=== PATIENT | female | born 1980 | race Caucasian/White ===

== ENCOUNTER 2018-10-09 17:56 | Emergency (ER) | payer MEDICARE, OTHER ==
[~2018-10-09] VITALS: Ht 160 cm; Wt 156.5 kg
[~2018-10-09 17:56] MED LIST: AMITRIPTYLINE H25 MG PO; AMITRIPTYLINE H75 MG PO; ATIVAN0.5 MG PO; BACTROBAN22 GM TOP; BIAXIN500 MG PO; BIOTIN1 MG PO; CETIRIZINE HCL10 MG PO; CLINDAMYCIN HC300 MG PO; D3 + K2 DOTS 11 EACH PO; DIVALPROEX SOD500 MG PO; ESTRADIOL TRAN1 EAC1 TD; ESTRADIOL1 MG PO; FABRAZYME35 MG IV; GEODON80 MG NG; GLIPIZIDE XL10 MG PO; GUAIATUSSIN AC10 ML PO; KEFLEX500 MG PO; KURIC75 GM TP; L-METHYLFOLATE15 MG PO; LASIX20 MG; LATUDA120 MG PO; LISINOPRIL5 MG; LYRICA50 MG PO; MELOXICAM15 MG PO; METFORMIN HCL500 M1 PO; MONTELUKAST SOD10 MG PO; NORCO 10-325 T1 EACH PO; NORCO 5-325 TA1 EACH PO; PHENADOZ25 MG PR; POTASSIUM GLUC500 MG PO; PRAZOSIN HCL5 MG PO; PREDNISONE20 MG PO; PRILOSEC20 MG PO; PROPRANOLOL HCL40 MG PO; QUETIAPINE FUM300 MG PO; TRAMADOL HCL50 MG PO; TRAZODONE HCL100 MG PO; VICTOZA 2-0.6 MG/0.1 SUB-Q; WELLBUTRIN SR150 MG PO; XANAX1 MG PO; ZOFRAN ODT4 MG PO; ZOFRAN ODT4 MG SL; ZOFRAN ODT8 MG PO; ZOFRAN4 MG PO; ZOFRAN8 MG PO
[2018-10-09] MEDS ORDERED: DULOXETINE HCL30 MG PO (18:14)
[2018-10-09] MEDS ORDERED: LANTUS SOL100 UNIT/1 SUB-Q (18:14)
[2018-10-09] MEDS ORDERED: METRONIDAZOLE70 GM VAGINAL (18:18)
[2018-10-09] MEDS ORDERED: NORCO 5-325 TA1 EACH PO (20:14)
[2018-10-09] MEDS ORDERED: PROMETHAZINE HC25 M1 PO (20:14)
[2018-10-09] MEDS ORDERED: CLINDAMYCIN HC300 MG PO (20:14)
== END 2018-10-09 20:30 | disposition home or self-care (01) ==
LOC: ED 17:56
PROC: 0H9AXZZ Drainage of Inguinal Skin, External Approach (ICD-10-PCS; principal; 2018-10-09)
DX: L02.214 Cutaneous abscess of groin (principal); F31.9 Bipolar disorder, unspecified; I10 Essential (primary) hypertension; E11.9 Type 2 diabetes mellitus without complications; Z90.710 Acquired absence of both cervix and uterus; Z90.49 Acquired absence of other specified parts of digestive tract; Z88.0 Allergy status to penicillin; Z88.2 Allergy status to sulfonamides; Z88.8 Allergy status to other drugs, medicaments and biological substances; Z79.4 Long term (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 of insulin; Z79.899 Other long term (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
CPT/HCPCS: 10060; 87070; 87077; 87186; 87205; 99283-25

== ENCOUNTER 2018-10-11 14:53 | Emergency (ER) | payer MEDICARE, OTHER ==
[~2018-10-11] VITALS: Ht 160 cm; Wt 156.6 kg
[~2018-10-11 14:53] MED LIST changes: +DULOXETINE HCL30 MG PO; +LANTUS SOL100 UNIT/1 SUB-Q; +METRONIDAZOLE70 GM VAGINAL; +PROMETHAZINE HC25 M1 PO
--- OUTSIDE RECORDS SUMMARY | 2018-10-11 14:56 | XMS ---
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 ENRIQUE Security Vamp Maker Events No recent Security Events currently on file CRITERIA MET - [facility] - 2 Visits in 30 Days CARE PROVIDERS There are no care providers on record at this time. Amparo has no Care Guidelines for this patient. [place] VISIT COUNT (12 MO.) [address] [facility] TOTAL 3 NOTE: Visits indicate total known visits. ED/C VISIT TRACKING (12 MO.) 10/11/2018 14:53 [facility] [place] TYPE: Emergency COMPLAINT: - WOUND CHECK 10/09/2018 17:56 [facility] [place] TYPE: Emergency COMPLAINT: - POST OP PROBLEM 08/02/2018 11:43 [facility] [place] TYPE: Emergency COMPLAINT: - RIGHT ARM PAIN DIAGNOSES: - Pain in right arm - Pain in right arm INPATIENT VISIT TRACKING (12 MO.) No inpatient visits to display in this time frame [id number]
[2018-10-11] MEDS ORDERED: ULTRAM50 MG PO ×2 (15:59→16:01)
== END 2018-10-11 16:15 | disposition home or self-care (01) ==
LOC: ED 14:53
DX: Z48.817 Encounter for surgical aftercare following surgery on the skin and subcutaneous tissue (principal); F31.9 Bipolar disorder, unspecified; I10 Essential (primary) hypertension; E11.9 Type 2 diabetes mellitus without complications; Z90.710 Acquired absence of both cervix and uterus; Z90.49 Acquired absence of other specified parts of digestive tract; Z88.0 Allergy status to penicillin; Z88.2 Allergy status to sulfonamides; Z88.8 Allergy status to other drugs, medicaments and biological substances; Z79.899 Other long term (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; Z79.4 Long term (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 of insulin
CPT/HCPCS: 99282

== ENCOUNTER 2019-11-09 22:22 | Emergency (ER) | payer MEDICARE, OTHER ==
[~2019-11-09] VITALS: Ht 162.6 cm; Wt 153.5 kg
[~2019-11-09 22:22] MED LIST changes: +ULTRAM50 MG PO
--- OUTSIDE RECORDS SUMMARY | 2019-11-09 22:24 | XMS ---
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 ENRIQUE Security Photoengraving Helper Events No recent Security Events currently on file CRITERIA MET - [facility] - Has Care Guidelines - PDMP CARE PROVIDERS MERLE SHARMA Internal Medicine 10/12/2018-Current PHONE: [phone] Amparo has no Care Guidelines for this patient. Care History Medical/Surgical 10/12/2018 [facility] - Patient is currently established with [facility]. If patient is seen in the ED during business hours. Please contact [facility]Ws at [facility]. Care Recommendation: This patient has had 5 or more Emergency Department visits in the last 12 months.\T\nbsp; Patient requires education on the scope and purpose of the ED as an acute care provider not a Primary Care Provider and should not be utilized for chronic conditions.\T\nbsp; These are guidelines and the provider should exercise clinical judgment when providing care. E.D. VISIT COUNT (12 MO.) 1 [facility] TOTAL 1 NOTE: Visits indicate total known visits. ED/UCC VISIT TRACKING (12 MO.) 11/09/2019 22:[address] [facility] [place] TYPE: Emergency COMPLAINT: - MEDICATION ISSUE INPATIENT VISIT TRACKING (12 MO.) No inpatient visits to display in this time frame [email or web address] ([id number]
[2019-11-09] MEDS ORDERED: PROTONIX20 MG PO (22:36)
[2019-11-09] MEDS ORDERED: LEVAQUIN500 MG PO (23:31)
[2019-11-09] MEDS ORDERED: FLAGYL500 MG PO (23:31)
== END 2019-11-09 23:41 | disposition home or self-care (01) ==
LOC: ED 22:22
DX: R11.10 Vomiting, unspecified (principal); T36.8X5A Adverse effect of other systemic antibiotics, initial encounter; K02.9 Dental caries, unspecified; F31.9 Bipolar disorder, unspecified; I10 Essential (primary) hypertension; E11.9 Type 2 diabetes mellitus without complications
CPT/HCPCS: 99283

== ENCOUNTER 2020-02-07 09:17 | Emergency (ER) | payer MEDICARE, OTHER ==
[~2020-02-07] VITALS: Ht 162.6 cm; Wt 153.5 kg
--- OUTSIDE RECORDS SUMMARY | ~2020-02-07 | XMS | Encounter Summary ---
Demographics + + + | Address | [address] | | | [place] [address] | + + + | Home Phone | | + + + | Preferred Language | Unknown | + + + | Marital Status | Single | + + + | Yarsanism Affiliation | Unknown | + + + | Race | White | + + + | Ethnic Group | Not or | + + + Author + + + | Author | [facility] | + + + | Organization | [facility] | + + + | Address | Unknown | + + + | Phone | Unavailable | + + + Support + + +---------+ + | Name | Relationship | Address | Phone | + + +---------+ + | John Miguel | ECON | Unknown | | + + +---------+ + Care Team Providers + +------+ + | Care Soaping Machine Back Tender Name | Role | Phone | + +------+ + | Gavinolizandro Estiven | PCP | | + +------+ + Encounter Details +--------+ + + + + | Date | Type | Department | Care Team | Description | +--------+ + + + + | 04/09/ | MyChart | [facility] | Deidre Nguyen MD | [facility] | | 2018 | Encounter | Floor [address] | [address] | | | | | St Mailcode: [facility] | [place] [address], | | | | | [facility] [place], [place] | [place] [address] | | | | | [address] | [phone] | | | | | [phone] | | | +--------+ + + + + Social History + +-------+ +--------+------+ | Tobacco Use | Types | Packs/Day | Years | Date | | | | | Used | | + +-------+ +--------+------+ | Never Smoker | | | | | + +-------+ +--------+------+ + +---+---+---+ | Smokeless Tobacco: | | | | | Never Used | | | | + +---+---+---+ + + +---------+ + | Alcohol Use | Drinks/Week | oz/Week | Comments | + + +---------+ + | No | | | | + + +---------+ + + + + | Sex Assigned at | Date Recorded | | | | + + + | Not on file | | + + + + + + + | Job Start Date | Occupation | Industry | + + + + | Not on file | Not on file | Not on file | + + + + + + + + | Travel History | Travel Start | Travel End | + + + + + + | No recent travel history available. | + + documented as of this encounter Plan of Treatment Not on filedocumented as of this encounter Visit Diagnoses Not on filedocumented in this encounter"
--- OUTSIDE RECORDS SUMMARY | ~2020-02-07 | XMS | Encounter Summary ---
Demographics + + + | Address | [address] | | | [place] [address] | + + + | Home Phone | | + + + | Preferred Language | Unknown | + + + | Marital Status | Single | + + + | Worship Affiliation | Unknown | + + + | Race | White | + + + | Ethnic Group | Not or | + + + Author + + + | Author | [facility] | + + + | Organization | [facility] | + + + | Address | Unknown | + + + | Phone | Unavailable | + + + Support + + +---------+ + | Name | Relationship | Address | Phone | + + +---------+ + | John Miguel | ECON | Unknown | | + + +---------+ + Care Team Providers + +------+ + | Care Front Desk Person Name | Role | Phone | + +------+ + | Estiven Hallman | PCP | | + +------+ + Encounter Details +--------+------+ + + + | Date | Type | Department | Care Team | Description | +--------+------+ + + + | 02/03/ | Lab | Laboratory at [facility] | | Morbid obesity, | | 2017 | | [address] | | unspecified obesity | | | | [place], [place] | | type (HCC) | | | | [address] | | | | | | [phone] | | | +--------+------+ + + + Social History + +-------+ [...] Not on filedocumented as of this encounter Procedures + +--------+ + + + | Procedure Name | Priori | Date/Time | Associated Diagnosis | Comments | | | ty | | | | + +--------+ + + + | VITAMIN D, | Routin | 02/03/2017 | Morbid obesity, | Results for this | | 25-HYDROXY, SERUM | e | 12:18 PM | unspecified obesity | procedure are in the | | | | PDT | type ([facility]) | results section. | + +--------+ + + + | COMPLETE METABOLIC | Routin | 02/03/2017 | Morbid obesity, | Results for this | | SET | e | 12:18 PM | unspecified obesity | procedure are in the | | (NA,K,CL,CO2,BUN,CRE | | PDT | type (HCC) | results section. | | AT,GLUC,CA,AST,ALT,B | | | | | | BECCA TOTAL,ALK | | | | | | PHOS,ALB,PROT TOTAL) | | | | | + +--------+ + + + | FERRITIN | Routin | 02/03/2017 | Morbid obesity, | Results for this | | | e | 12:18 PM | unspecified obesity | procedure are in the | | | | PDT | type ([facility]) | results section. | + +--------+ + + + | PTH, SERUM | Routin | 02/03/2017 | Morbid obesity, | Results for this | | | e | 12:18 PM | unspecified obesity | procedure are in the | | | | PDT | type ([facility]) | results section. | + +--------+ + + + | TSH | Routin | 02/03/2017 | Morbid obesity, | Results for this | | | e | 12:18 PM | unspecified obesity | procedure are in the | | | | PDT | type ([facility]) | results section. | + +--------+ + + + | LIPID SET (TRIG, T | Routin | 02/03/2017 | Morbid obesity, | Results for this | | CHOL, HDL, CALC LDL) | e | 12:18 PM | unspecified obesity | procedure are in the | | | | PDT | type ([facility]) | results section. | + +--------+ + + + | HEMOGLOBIN A1C, | Routin | 02/03/2017 | Morbid obesity, | Results for this | | BLOOD | e | 12:18 PM | unspecified obesity | procedure are in the | | | | PDT | type (HCC) | results section. | + +--------+ + + + documented in this encounter Results HEMOGLOBIN A1C, BLOOD (02/03/2017 12:18 PM PDT) + + + + + + | Component | Value | Ref Range | Performed | Pathologist | | | | | At | Signature | + + + + + + | HEMOGLOBIN | 6.7 (H)Comment: Hgb A1C | <5.7 % | [facility] | | | A1C | Interpretive | | LABORATORY | | | | Information: | | SERVICES, | | | | <5.7% - Normal | | SPECIAL IMM | | | | 5.7-6.4% - Consistent | | + COAG | | | | with pre-diabetes | | | | | | >6.4% - Consistent | | | | | | with diabetes | | | | | | | | | | + + + + + + + + | Specimen | + + | Blood - Blood | | (substance) | + + + + + | Narrative | Performed At | + + + | Alternate forms of testing such as glycated serum protein or | [facility] | | glycated albumin should be considered for monitoring intermediate project manager | LABORATORY | | glycemic control in patients with: Increased red cell turnover, | SERVICES, | | certain hemoglobinopathies (e.g., HbS, HbE, HbC and thalassemia | SPECIAL IMM + | | syndromes), anemias, blood loss, chronic liver disease and | [facility] | | hemochromatosis (artefactually low HbA1c); iron deficiency anemia | | | (artefactually high HbA1c due to enhanced glycation of hemoglobin). | | | | | + + + + + + + + | Performing | Address | City/State/Zipcode | Phone Number | | Organization | | | | + + + + + | [facility] | [address] | [place] [address] | | | SERVICES, SPECIAL | [address] | | | | IMM + [place] | | | | + + + + + TSH (02/03/2017 12:18 PM PDT) + +-------+ + + + | Component | Value | Ref Range | Performed | Pathologist | | | | | At | Signature | + +-------+ + + + | TSH | 1.93 | 0.39 - 4.17 | [facility] | | | | | mIU/L | LABORATORY | | | | | | SERVICES, | | | | | | CORE | | + +-------+ + + + + + | Specimen | + + | Blood - Blood | | (substance) | + + + + + | Narrative | Performed At | + + + | TSH reference ranges are influenced by a variety of environmental | [facility] | | influences, age, gender and ethnicity. The supplied reference limits | LABORATORY | | are based on published values utilizing a similar TSH assay, and | SERVICES, CORE | | should be interpreted with caution. | | + + + + + + + + | Performing | Address | City/State/Zipcode | Phone Number | | Organization | | | | + + + + + | [employer] | [address] | [place] [address] | | | SERVICES, CORE | [address] | | | + + + + + LIPID SET (TRIG, T CHOL, HDL, CALC LDL) (02/03/2017 12:18 PM PDT) + +---------+ + + + | Component | Value | Ref Range | Performed | Pathologist | | | | | At | Signature | + +---------+ + + + | CHOLESTEROL | 219 (H) | <200 mg/dL | [facility] | | | (LAB) | | | LABORATORY | | | | | | SERVICES, | | | | | | CORE | | + +---------+ + + + | TRIGLYCERID | 190 (H) | <150 mg/dL | [facility] | | | ES | | | LABORATORY | | | | | | SERVICES, | | | | | | CORE | | + +---------+ + + + | HDL | 45 | >40 mg/dL | [facility] | | | CHOLESTEROL | | | LABORATORY | | | | | | SERVICES, | | | | | | CORE | | + +---------+ + + + | HDL CMNT | No Hemo | | [facility] | | | | | | LABORATORY | | | | | | SERVICES, | | | | | | CORE | | + +---------+ + + + | LDL | 136 (H) | <100 mg/dL | [facility] | | | CHOLESTEROL | | | LABORATORY | | | , | | | SERVICES, | | | CALCULATED | | | CORE | | + +---------+ + + + | VLDL | 38 (H) | <31 mg/dL | [facility] | | | CHOLESTEROL | | | LABORATORY | | | , | | | SERVICES, | | | CALCULATED | | | CORE | | + +---------+ + + + | NON-HDL | 174 (H) | <130 mg/dL | [facility] | | | CHOLESTEROL | | | LABORATORY | | | | | | SERVICES, | | | | | | CORE | | + +---------+ + + + + + | Specimen | + + | Blood - Blood | | (substance) | + + + + + | Narrative | Performed At | + + + | Cholesterol Reference Range: Desirable: <200 | [facility] | | mg/dL Borderline High: 200 - 239 mg/dL | LABORATORY | | High: >=240 mg/dL LDL Cholesterol | SERVICES, CORE | | Reference Range: Optimal: <100 mg/dL | | | Near Optimal: 100-129 mg/dL Borderline High: 130-159 | | | mg/dL High: 160-189 mg/dL | | | Very High: >=190 mg/dL non-HDL Cholesterol Reference Range: | | | Optimal: <130 mg/dL Near Optimal: | | | 130-159 mg/dL Borderline High: 160-189 mg/dL | | | High: 190-209 mg/dL Very High: | | | >=210 mg/dL Triglyceride Reference Range: | | | Normal: <150 mg/dL Borderline High: 150-199 mg/dL | | | High: 200-499 mg/dL Very High: >=500 mg/dL | | | HDL Reference Range: High Risk: <40 mg/dL | | | Desirable: >=60 mg/dL | | + + + + + + + + | Performing | Address | City/State/Zipcode | Phone Number | | Organization | | | | + + + + + | [facility] | [address] | [place] [address] | | | SERVICES, CORE | [address] | | | + + + + + PTH, SERUM (02/03/2017 12:18 PM PDT) + +---------+ + + + | Component | Value | Ref Range | Performed | Pathologist | | | | | At | Signature | + +---------+ + + + | PTH, SERUM | 164 (H) | 12 - 77 pg/mL | [facility] | | | | | | LABORATORY | | | | | | SERVICES, | | | | | | CORE | | + +---------+ + + + + + | Specimen | + + | Blood - Blood | | (substance) | + + + + + + + | Performing | Address | City/State/Zipcode | Phone Number | | Organization | | | | + + + + + | [employer] | [address] | [place] [address] | | | SERVICES, CORE | [address] | | | + + + + + FERRITIN (02/03/2017 12:18 PM PDT) + + + + + + | Component | Value | Ref Range | Performed | Pathologist | | | | | At | Signature | + + + + + + | FERRITIN | 25 (L)Comment: Male and | 50 - 200 ng/mL | [facility] | | | | Female >18 years: | | LABORATORY | | | | <20 ng/mL: | | SERVICES, | | | | Consistant with iron | | CORE | | | | deficiency 21-50 | | | | | | ng/mL: Possible | | | | | | iron deficiency 51-99 | | | | | | ng/mL: Iron | | | | | | deficiency unlikely | | | | | | unless inflammation | | | | | | present or | | | | | | patient | | | | | | >65 years of age | | | | | | 100-200 ng/mL: | | | | | | Normal, not consistent | | | | | | with iron deficiency | | | | | | >200 ng/mL: If | | | | | | transferrin saturation | | | | | | >45%, consider | | | | | | hemochromatosis | | | | + + + + + + + + | Specimen | + + | Blood - Blood | | (substance) | + + + + + + + | Performing | Address | City/State/Zipcode | Phone Number | | Organization | | | | + + + + + | [facility] | [address] | [place] [address] | | | SERVICES, CORE | [address] | | | + + + + + VITAMIN D, 25-HYDROXY, SERUM (02/03/2017 12:18 PM PDT) + + + + + + | Component | Value | Ref Range | Performed | Pathologist | | | | | At | Signature | + + + + + + | VITAMIN D | 20.6 (L) | 30 - 80 ng/mL | [facility] | | | 25 HYDROXY | | | LABORATORY | | | | | | SERVICES, | | | | | | CORE | | + + + + + + + + | Specimen | + + | Blood - Blood | | (substance) | + + + + + | Narrative | Performed At | + + + | Reference Interval: 0-18years: Deficiency: <20 ng/mL | [facility] | | Optimum level: >or=20 ng/mL | LABORATORY | | >18years: Deficiency: <20 | SERVICES, CORE | | ng/mL Insufficiency: 20-29 ng/mL | | | Optimum Level: 30-80 ng/mL High: | | | 81-150 ng/ml Toxic: >150 ng/mL | | + + + + + + + + | Performing | Address | City/State/Zipcode | Phone Number | | Organization | | | | + + + + + | [facility] | [address] | [place] [address] | | | SERVICES, CORE | [address] | | | + + + + + COMPLETE METABOLIC SET (NA,K,CL,CO2,BUN,CREAT,GLUC,CA,AST,ALT,BILI TOTAL,ALK PHOS,ALB,PROT TOTAL) (02/03/2017 12:18 PM PDT) + +---------+ + + + | Component | Value | Ref Range | Performed | Pathologist | | | | | At | Signature | + +---------+ + + + | GLUCOSE, | 85 | 60 - 99 mg/dL | [facility] | | | PLASMA | | | LABORATORY | | | (LAB) | | | SERVICES, | | | | | | CORE | | + +---------+ + + + | BUN, PLASMA | 8 | 6 - 20 mg/dL | [facility] | | | (LAB) | | | LABORATORY | | | | | | SERVICES, | | | | | | CORE | | + +---------+ + + + | CREATININE | 0.84 | 0.60 - 1.10 | [facility] | | | PLASMA | | mg/dL | LABORATORY | | | (LAB) | | | SERVICES, | | | | | | CORE | | + +---------+ + + + | EGFR | >60 | >60 mL/min | [facility] | | | - | | | LABORATORY | | | [place] | | | SERVICES, | | | | | | CORE | | + +---------+ + + + | EGFR NON | >60 | >60 mL/min | [facility] | | | -[place] | | | LABORATORY | | | [place] | | | SERVICES, | | | | | | CORE | | + +---------+ + + + | SODIUM, | 139 | 136 - 145 | [facility] | | | PLASMA | | mmol/L | LABORATORY | | | (LAB) | | | SERVICES, | | | | | | CORE | | + +---------+ + + + | POTASSIUM, | 4.1 | 3.4 - 5.0 | [facility] | | | PLASMA | | mmol/L | LABORATORY | | | (LAB) | | | SERVICES, | | | | | | CORE | | + +---------+ + + + | CHLORIDE, | 104 | 97 - 108 mmol/L | [facility] | | | PLASMA | | | LABORATORY | | | (LAB) | | | SERVICES, | | | | | | CORE | | + +---------+ + + + | TOTAL CO2, | 29 | 21 - 32 mmol/L | [facility] | | | PLASMA | | | LABORATORY | | | (LAB) | | | SERVICES, | | | | | | CORE | | + +---------+ + + + | CALCIUM, | 9.3 | 8.6 - 10.2 | [facility] | | | PLASMA | | mg/dL | LABORATORY | | | (LAB) | | | SERVICES, | | | | | | CORE | | + +---------+ + + + | CALCIUM(ALB | 9.9 | 8.6 - 10.2 | [facility] | | | CORRECTED) | | mg/dL | LABORATORY | | | | | | SERVICES, | | | | | | CORE | | + +---------+ + + + | BILIRUBIN | 0.3 | 0.3 - 1.2 mg/dL | [facility] | | | TOTAL | | | LABORATORY | | | | | | SERVICES, | | | | | | CORE | | + +---------+ + + + | TOTAL | 7.7 | 6.4 - 8.2 g/dL | [facility] | | | PROTEIN, | | | LABORATORY | | | PLASMA | | | SERVICES, | | | (LAB) | | | CORE | | + +---------+ + + + | ALBUMIN, | 3.2 (L) | 3.5 - 4.7 g/dL | [facility] | | | PLASMA | | | LABORATORY | | | (LAB) | | | SERVICES, | | | | | | CORE | | + +---------+ + + + | ALK PHOS | 125 (H) | 42 - 98 U/L | [facility] | | | | | | LABORATORY | | | | | | SERVICES, | | | | | | CORE | | + +---------+ + + + | AST(SGOT) | 22 | <=41 U/L | [facility] | | | | | | LABORATORY | | | | | | SERVICES, | | | | | | CORE | | + +---------+ + + + | ALT (SGPT) | 24 | <=60 U/L | [facility] | | | | | | LABORATORY | | | | | | SERVICES, | | | | | | CORE | | + +---------+ + + + | ANION GAP | 6 | mmol/L | [facility] | | | | | | LABORATORY | | | | | | SERVICES, | | | | | | CORE | | + +---------+ + + + | ANION | 8 | 4 - 11 mmol/L | [facility] | | | GAP(ALB | | | LABORATORY | | | CORRECTED) | | | SERVICES, | | | | | | CORE | | + +---------+ + + + | POTASSIUM | No Hemo | | [facility] | | | CMNT | | | LABORATORY | | | | | | SERVICES, | | | | | | CORE | | + +---------+ + + + | BILI T CMNT | No Hemo | | [facility] | | | | | | LABORATORY | | | | | | SERVICES, | | | | | | CORE | | + +---------+ + + + | AST CMNT | No Hemo | | [facility] | | | | | | LABORATORY | | | | | | SERVICES, | | | | | | CORE | | + +---------+ + + + + + | Specimen | + + | Blood - Blood | | (substance) | + + + + + | Narrative | Performed At | + + + | GFR is estimated using the MDRD equation recommended by the | [facility] | | National Kidney Disease Education Program. Estimated GFR | LABORATORY | | Interpretive Information: <60 mL/min/1.73 sq m | SERVICES, CORE | | Chronic Kidney Disease <15 mL/min/1.73 sq m | | | Kidney Failure Estimated GFR greater that 60 mL/min/1.73 sq m is of | | | limited clinical value. The MDRD equation is not valid in the | | | following situations: - Patients under 18 years of age - Severe | | | malnutrition or obesity - Vegetarian diet - Rapidly changing kidney | | | function | | + + + + + + + + | Performing | Address | City/State/Zipcode | Phone Number | | Organization | | | | + + + + + | [facility] | [address] | [place] [address] | | | SERVICES, CORE | [address] | | | + + + + + documented in this encounter Visit Diagnoses + + | Diagnosis | + + | Morbid obesity, unspecified obesity type (HCC) | + + documented in this encounter"
--- OUTSIDE RECORDS SUMMARY | ~2020-02-07 | XMS | Encounter Summary ---
Demographics + + + | Address | [address] | | | [place] [address] | + + + | Home Phone | | + + + | Preferred Language | Unknown | + + + | Marital Status | Single | + + + | Jainism Affiliation | Unknown | + + + | Race | White | + + + | Ethnic Group | Not or | + + + Author + + + | Author | [facility] | + + + | Organization | [facility] | + + + | Address | Unknown | + + + | Phone | Unavailable | + + + Support + + +---------+ + | Name | Relationship | Address | Phone | + + +---------+ + | John Miguel | ECON | Unknown | | + + +---------+ + Care Team Providers + +------+ + | Care Lapel Padder Blindstitch Name | Role | Phone | + +------+ + | Lexx Estiven DO | PCP | | + +------+ + Reason for Visit + + + | Reason | Comments | + + + | Referral To | | | Bariatric Surgery | | + + + Encounter Details +--------+ + + + + | Date | Type | Department | Care Team | Description | +--------+ + + + + | 12/11/ | Abstract | [facility] | Clinic, Surgery | Referral To | | 2016 | | [place] [phone] | | Bariatric Surgery | | | | [address] | | | | | | Mailcode: [place] | | | | | | [facility] and | | | | | | [facility] [address] | | | | | | [place], [place] | | | | | | [address] | | | | | | [phone] | | | +--------+ + + + [...] Comments | + + +---------+ + | Not Asked | | | | + + +---------+ [...]
--- OUTSIDE RECORDS SUMMARY | ~2020-02-07 | XMS | Encounter Summary ---
Demographics + + + | Address | [address] | | | [place] [address] | + + + | Home Phone | | + + + | Preferred Language | Unknown | + + + | Marital Status | Single | + + + | Scientology Affiliation | Unknown | + + + | Race | White | + + + | Ethnic Group | Not or | + + + Author + + + | Author | [facility] | + + + | Organization | [facility] | + + + | Address | Unknown | + + + | Phone | Unavailable | + + + Support + + +---------+ + | Name | Relationship | Address | Phone | + + +---------+ + | John Miguel | ECON | Unknown | | + + +---------+ + Care Team Providers + +------+ + | Care Pattern Gater Name | Role | Phone | + +------+ + | Mikki Barajas MD | PCP | | + +------+ + Reason for Visit + + + | Reason | Comments | + + + | Medical Records | | | Review | | + + + Encounter Details +--------+ + + + + | Date | Type | Department | Care Team | Description | +--------+ + + + + | 07/15/ | Abstract | Dig[facility]ive [facility] | Clinic, Surgery | Medical Records | | 2018 | | Center at [facility] [address] | | Review | | | | [address] | | | | | | Mailcode: Center | | | | | | [facility] and | | | | | | [facility] [address] | | | | | | [place], [place] | | | | | | [address] | | | | | | [phone] | | | +--------+ + + + [...]
--- OUTSIDE RECORDS SUMMARY | ~2020-02-07 | XMS | Encounter Summary ---
Demographics + + + | Address | [address] | | | [place] [address] | + + + | Home Phone | | + + + | Preferred Language | Unknown | + + + | Marital Status | Single | + + + | Adventist Affiliation | Unknown | + + + | Race | White | + + + | Ethnic Group | Not or | + + + Author + + + | Organization | Unknown | + + + | Address | Unknown | + + + | Phone | Unavailable | + + + Support + + +---------+ + | Name | Relationship | Address | Phone | + + +---------+ + | John Miguel | ECON | Unknown | | + + +---------+ + Care Team Providers + +------+ + | Care Forest Management Professor Name | Role | Phone | + +------+ + | Mikki Barajas MD | PCP | | + +------+ + Encounter Details +--------+--------+ + + + | Date | Type | Department | Care Team | Description | +--------+--------+ + + + | 07/06/ | Travel | | | | | 2019 | | | | | +--------+--------+ + + + Social History + +-------+ [...]
--- OUTSIDE RECORDS SUMMARY | ~2020-02-07 | XMS | Encounter Summary ---
Demographics + + + | Address | [address] | | | [place] [address] | + + + | Home Phone | | + + + | Preferred Language | Unknown | + + + | Marital Status | Single | + + + | Bahai Affiliation | Unknown | + + + | Race | White | + + + | Ethnic Group | Not or | + + + Author + + + | Author | [facility] | + + + | Organization | [facility] | + + + | Address | Unknown | + + + | Phone | Unavailable | + + + Support + + +---------+ + | Name | Relationship | Address | Phone | + + +---------+ + | John Miguel | ECON | Unknown | | + + +---------+ + Care Team Providers + +------+ + | Care Legal Services Manager Name | Role | Phone | + +------+ + | Lexx Estiven | PCP | | + +------+ + Reason for Visit +--------+ + | Reason | Comments | +--------+ + | Other | not specified | +--------+ + Encounter Details +--------+ + + + + | Date | Type | Department | Care Team | Description | +--------+ + + + + | 06/17/ | Telephone | [facility] at [facility] | Deana Jimenez MD | Other (not specified | | 2015 | | Floor [address] | [address] | ) | | | | St Mailcode: [facility] | [facility], | | | | | [facility], [place] | [place] [address] | | | | | [address] | [phone] | | | | | [phone] | | | +--------+ + + + [...]
--- OUTSIDE RECORDS SUMMARY | ~2020-02-07 | XMS | Encounter Summary ---
Demographics + + + | Address | [address] | | | [place] [address] | + + + | Home Phone [...] Author + + + | Author | [facility] | + + + | Organization | [facility] | + + + | Address | Unknown | + + + | Phone | Unavailable | + + + Support + + +---------+ + | Name | Relationship | Address | Phone | + + +---------+ + | John Miguel | ECON | Unknown | | + + +---------+ + Care Team Providers + +------+ + | Care Boat Canvas Installer Name | Role | Phone | + +------+ + | Mikki Barajas MD | PCP | | + +------+ + Encounter Details +--------+ + + + + | Date | Type | Department | Care Team | Description | +--------+ + + + + | 10/14/ | Abstract | [facility] | Clinic, Surgery | | | 2020 | | [place] [facility] [address] | | | | | | [address] | | | | | | Mailcode: [place] | | | | | | [facility] | | | | | | Healing, [address] | | | | | | [place], [place] | | | | | | [address] | | | | | | [phone] | | | +--------+ + + + [...]
--- OUTSIDE RECORDS SUMMARY | ~2020-02-07 | XMS | Encounter Summary ---
Demographics + + + | Address | [address] | | | [place] [address] | + + + | Home Phone | | + + + | Preferred Language | Unknown | + + + | Marital Status | Single | + + + | Amish Affiliation | Unknown | + + + | Race | White | + + + | Ethnic Group | Not or | + + + Author + + + | Author | [facility] | + + + | Organization | [facility] | + + + | Address | Unknown | + + + | Phone | Unavailable | + + + Support + + +---------+ + | Name | Relationship | Address | Phone | + + +---------+ + | John Miguel | ECON | Unknown | | + + +---------+ + Care Team Providers + +------+ + | Care Charge Aide Name | Role | Phone | + +------+ + | Mikki Barajas MD | PCP | | + +------+ + Reason for Visit +--------+ + | Reason | Comments | +--------+ + | Other | switching to home infusions | +--------+ + Encounter Details +--------+ + + + + | Date | Type | Department | Care Team | Description | +--------+ + + + + | 01/03/ | Telephone | Metabolic Genetics | Deidre Nguyen MD | Other (switching to | | 2020 | | at [facility] | [address] [facility] | home infusions) | | | | [address] | [address] [place], | | | | | [place] | [place] [address] | | | | | [facility] | [phone] | | | | | [address] Floor [place], | | | | | | [place] [address] | | | | | | [phone] | | | +--------+ + + + [...]
--- OUTSIDE RECORDS SUMMARY | ~2020-02-07 | XMS | Encounter Summary ---
Demographics + + + | Address | [address] | | | [place] [address] | + + + | Home Phone | | + + + | Preferred Language | Unknown | + + + | Marital Status | Single | + + + | Buddhism Affiliation | Unknown | + + + | Race | White | + + + | Ethnic Group | Not or | + + + Author + + + | Author | [facility] | + + + | Organization | [facility] | + + + | Address | Unknown | + + + | Phone | Unavailable | + + + Support + + +---------+ + | Name | Relationship | Address | Phone | + + +---------+ + | John Miguel | ECON | Unknown | | + + +---------+ + Care Team Providers + +------+ + | Care Nuclear Reactor Operator Name | Role | Phone | + +------+ + | Katie Dominique MD | PCP | | + +------+ + Reason for Visit + + + | Reason | Comments | + + + | | | + + + Encounter Details +--------+ + + + + | Date | Type | Department | Care Team | Description | +--------+ + + + + | 11/29/ | Telephone | [facility] at [facility] | Shaina Barrett | | | 2009 | | Floor [address] | | | | | St Mailcode: [facility] | | | | | | [facility] [place], [place] | | | | | | [address] | | | | | | [phone] | | | +--------+ + + + + Social History + +-------+ +--------+------+ | Tobacco Use | Types | Packs/Day | Years | Date | | | | | Used | | + +-------+ +--------+------+ | Never Assessed | | | | | + +-------+ +--------+------+ + + + | Sex Assigned at [...]
--- OUTSIDE RECORDS SUMMARY | ~2020-02-07 | XMS | Encounter Summary ---
Demographics + + + | Address | [address] | | | [place] [address] | + + + | Home Phone [...] + + + | Author | [facility] | + + + | Organization | [facility] | + + + | Address | Unknown | + + + | Phone | Unavailable | + + + Support + + +---------+ + | Name | Relationship | Address | Phone | + + +---------+ + | John Miguel | ECON | Unknown | | + + +---------+ + Care Team Providers + +------+ + | Care Patient Service Representative Name | Role | Phone | + +------+ + | Lexx Estiven DO | PCP | | + +------+ + Reason for Visit +--------+ + | Reason | Comments | +--------+ + | Other | Faxed Disability forms. Confirmation rcv'd. Sent to scan | +--------+ + Encounter Details +--------+ + + + + | Date | Type | Department | Care Team | Description | +--------+ + + + + | 04/03/ | Documentati | [facility] at [facility] | Marcellus Rodriguez MD | Other (Faxed | | 2016 | on | Floor [address] | [address] | Disability forms. | | | | Mailcode: [facility] | [address] | Confirmation rcv'd. | | | | [facility] [place], [place] | [place], [place] | Sent to [facility] ) | | | | [address] | [address] | | | | | [phone] | [phone] | | | | | | | | +--------+ + + [...]
--- OUTSIDE RECORDS SUMMARY | ~2020-02-07 | XMS | Encounter Summary ---
Demographics + + + | Address | [address] | | | [place] [address] | + + + | Home Phone | | + + + | Preferred Language | Unknown | + + + | Marital Status | Single | + + + | Anabaptism Affiliation | Unknown | + + + | Race | White | + + + | Ethnic Group | Not or | + + + Author + + + | Author | [facility] | + + + | Organization | [facility] | + + + | Address | Unknown | + + + | Phone | Unavailable | + + + Support + + +---------+ + | Name | Relationship | Address | Phone | + + +---------+ + | John Miguel | ECON | Unknown | | + + +---------+ + Care Team Providers + +------+ + | Care Automation Specialist Name | Role | Phone | + +------+ + | Estiven Hallman | PCP | | + +------+ + Encounter Details +--------+------+ + + + | Date | Type | Department | Care Team | Description | +--------+------+ + + + | 01/12/ | Lab | Laboratory at [facility] | | | | 2019 | | [address] | | | | | | [place], [place] | | | | | | [address] | | | | | | [phone] | | | +--------+------+ + + + [...] | + +--------+ + + + | DRUG | Routin | 01/12/2019 | Morbid obesity | Results for this | | SCREEN,URINE;W/CONFI | e | 10:52 AM | with BMI of | procedure are in the | | RM | | PDT | 50.0-59.9, adult | results section. | | | | | (HCC) Fabry disease | | | | | | (HCC) Benign | | | | | | essential HTN | | + +--------+ + + + | NICOTINE & | Routin | 01/12/2019 | Morbid obesity | Results for this | | METABOLITES, SERUM | e | 10:52 AM | with BMI of | procedure are in the | | | | PDT | 50.0-59.9, adult | results section. | | | | | (HCC) Fabry disease | | | | | | (HCC) Benign | | | | | | essential HTN | | + +--------+ + + + | TSH | Routin | 01/12/2019 | Morbid obesity | Results for this | | | e | 10:52 AM | with BMI of | procedure are in the | | | | PDT | 50.0-59.9, adult | results section. | | | | | (HCC) Fabry disease | | | | | | (HCC) Benign | | | | | | essential HTN | | + +--------+ + + + | LIPID SET (TRIG, T | Routin | 01/12/2019 | Morbid obesity | Results for this | | CHOL, HDL, CALC LDL) | e | 10:52 AM | with BMI of | procedure are in the | | | | PDT | 50.0-59.9, adult | results section. | | | | | (HCC) Fabry disease | | | | | | (HCC) Benign | | | | | | essential HTN | | + +--------+ + + + | VITAMIN D, | Routin | 01/12/2019 | Morbid obesity | Results for this | | 25-HYDROXY, SERUM | e | 10:52 AM | with BMI of | procedure are in the | | | | PDT | 50.0-59.9, adult | results section. | | | | | (HCC) Fabry disease | | | | | | (HCC) Benign | | | | | | essential HTN | | + +--------+ + + + | VITAMIN B-12 | Routin | 01/12/2019 | Morbid obesity | Results for this | | | e | 10:52 AM | with BMI of | procedure are in the | | | | PDT | 50.0-59.9, adult | results section. | | | | | (HCC) Fabry disease | | | | | | (HCC) Benign | | | | | | essential HTN | | + +--------+ + + + | VITAMIN B1, WHOLE | Routin | 01/12/2019 | Morbid obesity | Results for this | | BLOOD | e | 10:52 AM | with BMI of | procedure are in the | | | | PDT | 50.0-59.9, adult | results section. | | | | | (HCC) Fabry disease | | | | | | (HCC) Benign | | | | | | essential HTN | | + +--------+ + + + | PTH, SERUM | Routin | 01/12/2019 | Morbid obesity | Results for this | | | e | 10:52 AM | with BMI of | procedure are in the | | | | PDT | 50.0-59.9, adult | results section. | | | | | (HCC) Fabry disease | | | | | | (HCC) Benign | | | | | | essential HTN | | + +--------+ + + + | METHYLMALONIC ACID, | Routin | 01/12/2019 | Morbid obesity | Results for this | | SERUM | e | 10:52 AM | with BMI of | procedure are in the | | | | PDT | 50.0-59.9, adult | results section. | | | | | (HCC) Fabry disease | | | | | | (HCC) Benign | | | | | | essential HTN | | + +--------+ + + + | IRON AND TIBC, SERUM | Routin | 01/12/2019 | Morbid obesity | Results for this | | | e | 10:52 AM | with BMI of | procedure are in the | | | | PDT | 50.0-59.9, adult | results section. | | | | | (HCC) Fabry disease | | | | | | (HCC) Benign | | | | | | essential HTN Low | | | | | | ferritin | | + +--------+ + + + | HOMOCYSTEINE TOTAL, | Routin | 01/12/2019 | Morbid obesity | Results for this | | PLASMA | e | 10:52 AM | with BMI of | procedure are in the | | | | PDT | 50.0-59.9, adult | results section. | | | | | (HCC) Fabry disease | | | | | | (HCC) Benign | | | | | | essential HTN | | + +--------+ + + + | FERRITIN | Routin | 01/12/2019 | Morbid obesity | Results for this | | | e | 10:52 AM | with BMI of | procedure are in the | | | | PDT | 50.0-59.9, adult | results section. | | | | | (HCC) Fabry disease | | | | | | (HCC) Benign | | | | | | essential HTN Low | | | | | | ferritin | | + +--------+ + + + documented in this encounter Results DRUG SCREEN,URINE;W/CONFIRM (01/12/2019 10:52 AM PDT) + + + + + + | Component | Value | Ref Range | Performed | Pathologist | | | | | At | Signature | + + + + + + | AMPHETAMINE | Negative | Negative | [facility] | | | , URINE | | | LABORATORY | | | | | | SERVICES, | | | | | | CORE | | + + + + + + | AMPHETAMINE | <125 | <1,000 ng/mL | [facility] | | | CONC, | | | LABORATORY | | | URINE | | | SERVICES, | | | | | | CORE | | + + + + + + | BARBITURATE | Negative | Negative | [facility] | | | S, URINE | | | LABORATORY | | | | | | SERVICES, | | | | | | CORE | | + + + + + + | BARBITURATE | <20 | <200 ng/mL | [facility] | | | S CONC, | | | LABORATORY | | | URINE | | | SERVICES, | | | | | | CORE | | + + + + + + | BENZODIAZEP | Negative | Negative | [facility] | | | PATY, URINE | | | LABORATORY | | | | | | SERVICES, | | | | | | CORE | | + + + + + + | BENZODIAZEP | 30 | <200 ng/mL | [facility] | | | INE CONC, | | | LABORATORY | | | URINE | | | SERVICES, | | | | | | CORE | | + + + + + + | Cocaine, | Negative | Negative | [facility] | | | Urine | | | LABORATORY | | | | | | SERVICES, | | | | | | CORE | | + + + + + + | COCAINE | <35 | <300 ng/mL | [facility] | | | CONC, URINE | | | LABORATORY | | | | | | SERVICES, | | | | | | CORE | | + + + + + + | OPIATES, | Negative | Negative | [facility] | | | URINE | | | LABORATORY | | | | | | SERVICES, | | | | | | CORE | | + + + + + + | OPIATE | 110 | <300 ng/mL | [facility] | | | CONC, URINE | | | LABORATORY | | | | | | SERVICES, | | | | | | CORE | | + + + + + + | CANNABINOID | Negative | Negative | [facility] | | | S, URINE | | | LABORATORY | | | | | | SERVICES, | | | | | | CORE | | + + + + + + | CANNABINOID | <15 | <50 ng/mL | [facility] | | | CONC, | | | LABORATORY | | | URINE | | | SERVICES, | | | | | | CORE | | + + + + + + | METHADONE, | Negative | Negative | [facility] | | | URINE | | | LABORATORY | | | | | | SERVICES, | | | | | | CORE | | + + + + + + | METHADONE | 166 | <300 ng/mL | [facility] | | | CONC, URINE | | | LABORATORY | | | | | | SERVICES, | | | | | | CORE | | + + + + + + | OXYCODONE, | Negative | Negative | [facility] | | | URINE | | | LABORATORY | | | | | | SERVICES, | | | | | | CORE | | + + + + + + + + | Specimen | + + | Urine - Urine | | specimen collection, | | clean catch | | (procedure) | + + + + + | Narrative | Performed At | + + + | Minimum drug concentration yielding a positive urine drug screen | [facility] | | Amphetamines >=1000 ng/mL | LABORATORY | | Barbiturates >=200 ng/mL | SERVICES, CORE | | Benzodiazepine >=200 ng/mL Cocaine | | | >=300 ng/mL Methadone | | | >=300 ng/mL Opiates >=300 ng/mL | | | Oxycodone >=100 ng/mL THC - | | | Cannabinoid >=50 ng/mL Screening results are not | | | confirmed by alternate method unless requested. Results are to be | | | used for medical (i.e. treatment) purposes only. The reported | | | result is an estimated concentration of drug that can be detected by | | | the method of analysis. Amphetamine Note: Benzphetamine and | | | Selegiline may produce positive results with this assay. Opiates | | | Notes: Therapeutic doses of Ofloxcin (Floxin) or Levofloxacin | | | (Levaquin) may produce positive results with this assay. The | | | substaces being tested for must include Amphetamines, Benzodiazepines, | | | Cocaine, Alcohol, Cannabinoids, Opiates. | | + + + + + + + + | Performing | Address | City/State/Zipcode | Phone Number | | Organization | | | | + + + + + | [facility] | [address] | [place] [address] | | | MARAL BANKS | [address] | | | + + + + + NICOTINE AND METABOLITES CONFIRM/QUANT, SERUM (01/12/2019 10:52 AM PDT) + + + + + + | Component | Value | Ref Range | Performed | Pathologist | | | | | At | Signature | + + + + + + | 3-OH-COTINI | <2 | ng/mL | [facility] | | | NE | | | REG UNIV | | | | | | PTH - INTFC | | + + + + + + | NICOTINE | <2Comment: Consistent | ng/mL | [facility] | | | (SERUM) | with abstinence from | | REG UNIV | | | | nicotine-containingprodu | | PTH - INT[facility] | | | | cts for at least 1 | | | | | | week.INTERPRETIVE | | | | | | INFORMATION: Nicotine | | | | | | and Metabolites, | | | | | | | | | | | | Serum or Plasma, | | | | | | | | | | | | | | | | | | Quantitative | | | | | | Methodology: | | | | | | Quantitative Liquid | | | | | | Chromatography-Tandem | | | | | | Mass Spectrometry | | | | | | Positive cutoff: 2 ng/mL | | | | | | For medical purposes | | | | | | only; not valid for | | | | | | forensic use. This test | | | | | | is designed to evaluate | | | | | | recent use of | | | | | | nicotine-containing | | | | | | products. Passive and | | | | | | active exposure cannot | | | | | | be discriminated | | | | | | definitively, although a | | | | | | cutoff of 10 ng/mL | | | | | | cotinine is frequently | | | | | | used for surgery | | | | | | qualification purposes. | | | | | | For smoking cessation | | | | | | programs or compliance | | | | | | testing, the absence of | | | | | | expected drug(s) and/or | | | | | | drug metabolite(s) may | | | | | | indicate non-compliance, | | | | | | inappropriate timing of | | | | | | specimen collection | | | | | | relative to drug | | | | | | administration, poor | | | | | | drug absorption, or | | | | | | limitations of testing. | | | | | | This test cannot | | | | | | distinguish between use | | | | | | of tobacco and purified | | | | | | nicotine products. The | | | | | | concentration value must | | | | | | be greater than or | | | | | | equal to the cutoff to | | | | | | be reported as positive. | | | | | | Test developed and | | | | | | characteristics | | | | | | determined by [facility] | | | | | | [facility]. See | | | | | | Compliance Statement B: | | | | | | [email or web address] | | | | | | by [facility],[address] | | | | | | [address], [facility] [place] | | | | | | [address] | | | | | | [phone]. | | | | | | Last bassett MD, | | | | | | Lab. Director | | | | + + + + + + | COTININE | <2 | ng/mL | [facility] | | | | | | REG UNIV | | | | | | PTH - INTFC | | + + + + + + + + | Specimen | + + | Blood - Blood | | (substance) | + + + + + + + | Performing | Address | City/State/Zipcode | Phone Number | | Organization | | | | + + + + + | [facility] | [address] | [place], [place] | | | UNIV PTH - INT[facility] | | [address] | | + + + + + TSH (01/12/2019 10:52 AM PDT) + +-------+ + + + | Component | Value | Ref Range | Performed | Pathologist | | | | | At | Signature | + +-------+ + + + | TSH | 2.06 | 0.44 - 4.75 | [facility] | | | | | [...] | + + + + + | [facility] | [address] | [place] [address] | | | MARAL BANKS | [address] | | | + + + + + LIPID SET (TRIG, T CHOL, HDL, CALC LDL) (01/12/2019 10:52 AM PDT) + +---------+ + + + | Component | Value | Ref Range | Performed | Pathologist | | | | | At | Signature | + +---------+ + + + | CHOLESTEROL | 233 (H) | <200 mg/dL | [facility] | | | (LAB) | | | LABORATORY | | | | | | SERVICES, | | | | | | CORE | | + +---------+ + + + | TRIGLYCERID | 167 (H) | <150 mg/dL | [facility] | | | ES | | | LABORATORY | | | | | | SERVICES, | | | | | | CORE | | + +---------+ + + + | HDL | 42 | >40 mg/dL | [facility] | | [...] +---------+ + + + | LDL | 158 (H) | <100 mg/dL | [facility] | | | CHOLESTEROL | | | LABORATORY | | | , | | | SERVICES, | | | CALCULATED | | | CORE | | + +---------+ + + + | VLDL | 33 (H) | <31 mg/dL | [facility] | | | CHOLESTEROL | | | LABORATORY | | | , | | | SERVICES, | | | CALCULATED | | | CORE | | + +---------+ + + + | NON-HDL | 191 (H) | <130 mg/dL | [facility] | [...] | + + + + + | [facility] | [address] | [place] [address] | | | SERVICES, CORE | [address] | | | + + + + + VITAMIN D, 25-HYDROXY, SERUM (01/12/2019 10:52 AM PDT) + + + + + + | Component | Value | Ref Range | Performed | Pathologist | | | | | At | Signature | + + + + + + | VITAMIN D | 14.8 (L) | 30 - 80 ng/mL | [...] | + + + + + | [facility] | [address] | [place] [address] | | | SERVICES, CORE | [address] | | | + + + + + VITAMIN B-12 (01/12/2019 10:52 AM PDT) + +-------+ + + + | Component | Value | Ref Range | Performed | Pathologist | | | | | At | Signature | + +-------+ + + + | VITAMIN B12 | 326 | 193 - 986 pg/mL | [facility] | | | | [...] [facility] | [address] | [place] [address] | | | SERVICES, CORE | [address] | | | + + + + + VITAMIN B1, WHOLE BLOOD (01/12/2019 10:52 AM PDT) + + + + + + | Component | Value | Ref Range | Performed | Pathologist | | | | | At | Signature | + + + + + + | VITAMIN B1, | 103Comment: INTERPRETIVE | 70 - 180 nmol/L | [facility] | | | WHOLE | INFORMATION: Vitamin | | REG UNIV | | | BLOOD | B1, Whole Blood This | | PTH - INT[facility] | | | | assay measures the | | | | | | concentration of | | | | | | thiamine diphosphate | | | | | | (TDP), the primary | | | | | | active form of vitamin | | | | | | B1. Approximately 90 | | | | | | percent of vitamin B1 | | | | | | present in whole blood | | | | | | is TDP. Thiamine and | | | | | | thiamine monophosphate, | | | | | | which comprise the | | | | | | remaining 10 percent, | | | | | | are not measured. Test | | | | | | developed and | | | | | | characteristics | | | | | | determined by [facility] | | | | | | [facility]. See | | | | | | Compliance Statement B: | | | | | | [employer]/CSPerformed | | | | | | by [facility],[address] | | | | | | [address], [facility] [place] | | | | | | [address] | | | | | | [phone]. | | | | | | [facility] hospitalLast MD, | | | | | | Lab. Director | | | | + + + + + + + + | Specimen | + + | Blood - Blood | | (substance) | + + + + + + + | Performing | Address | City/State/Zipcode | Phone Number | | Organization | | | | + + + + + | [facility] | [address] | [place], [place] | | | UNIV PTH - INTFC | | [address] | | + + + + + PTH, SERUM (01/12/2019 10:52 AM PDT) + +---------+ + + + | Component | Value | Ref Range | Performed | Pathologist | | | | | At | Signature | + +---------+ + + + | PTH, SERUM | 162 (H) | 18 - 88 pg/mL | [facility] | | | | [...] | + + + + + | [facility] | [address] | [place] [address] | | | SERVICES, CORE | [address] | | | + + + + + METHYLMALONIC ACID, SERUM (01/12/2019 10:52 AM PDT) + + + + + + | Component | Value | Ref Range | Performed | Pathologist | | | | | At | Signature | + + + + + + | METHYLMALON | 0.14Comment: | 0.00 - 0.40 | [facility] | | | IC ACID | INTERPRETIVE | umol/L | REG UNIV | | | | INFORMATION: MMA | | PTH - [facility] | | | | Serum/Plasma, | | | | | | | | | | | | Vitamin B12 Status | | | | | | Test developed and | | | | | | characteristics | | | | | | determined by [facility] | | | | | | [employer]. See | | | | | | Compliance Statement B: | | | | | | [employer]/CSPerformed | | | | | | by [facility],[address] | | | | | | [address], [facility] [place] | | | | | | [address] | | | | | | [phone]. | | | | | | [facility] hospitalLast MD, | | | | | | Lab. Director | | | | + + + + + + + + | Specimen | + + | Blood - Blood | | (substance) | + + + + + + + | Performing | Address | City/State/[facility] Mexicocode | Phone Number | | Organization | | | | + + + + + | [facility] | [address] | [place], [place] | | | UNIV PTH - INTFC | | [address] | | + + + + + IRON AND TIBC (01/12/2019 10:52 AM PDT) + +-------+ + + + | Component | Value | Ref Range | Performed | Pathologist | | | | | At | Signature | + +-------+ + + + | IRON | 63 | 30 - 160 ug/dL | [facility] | | | | | | LABORATORY | | | | | | SERVICES, | | | | | | CORE | | + +-------+ + + + | IRON BIND | 268 | 240 - 450 ug/dL | [facility] | | | CAP | | | LABORATORY | | | | | | SERVICES, | | | | | | CORE | | + +-------+ + + + | % | 24 | 20 - 50 % | [facility] | | | SATURATION | | | LABORATORY | | | TRANSFERRIN | | | SERVICES, | | | , | | | CORE | | + +-------+ + + + + + | Specimen | + + | Blood - Blood | | (substance) | + + + + + + + | Performing | Address | City/State/Zipcode | Phone Number | | Organization | | | | + + + + + | [facility] | [address] | [place] [address] | | | JOCELYN, MARAL | [address] | | | + + + + + HOMOCYSTEINE TOTAL, PLASMA (01/12/2019 10:52 AM PDT) + + + + + + | Component | Value | Ref Range | Performed | Pathologist | | | | | At | Signature | + + + + + + | HOMOCYSTEIN | 10.9 (H) | 3.5 - 10.4 | [facility] | | | E,PLASMA,TO | | umol/L | LABORATORY | | | ABDOULAYE | | | SERVICES, | | | | | | SPECIAL IMM | | | | | | + COAG | | + + + + + + + + | Specimen | + + | Blood - Blood | | (substance) | + + + + + + + | Performing | Address | City/State/Zipcode | Phone Number | | Organization | | | | + + + + + | [facility] | [address] | [place] [address] | | | SERVICES, SPECIAL | [address] | | | | IMM + COAG | | | | + + + + + FERRITIN (01/12/2019 10:52 AM PDT) + + + + + + | Component | Value | Ref Range | Performed | Pathologist | | | | | At | Signature | + + + + + + | FERRITIN | 59Comment: Male and | 50 - 200 ng/mL | [facility] | | | | Female >18 years: [...] + | [facility] | [address] | [place] [address] | | | MARAL BANKS | [address] | | | + + + + + documented in this encounter Visit Diagnoses Not on filedocumented in this encounter"
--- OUTSIDE RECORDS SUMMARY | ~2020-02-07 | XMS | Encounter Summary ---
Demographics + + + | Address | [address] | | | [place] [address] | + + + | Home Phone | | + + + | Preferred Language | Unknown | + + + | Marital Status | Single | + + + | Quaker Affiliation | Unknown | + + + [...] Team Providers + +------+ + | Care Scholarship Counselor Name | Role | Phone | + +------+ + | Lexx Estiven | PCP | | + +------+ + Encounter Details +--------+ + + + + | Date | Type | Department | Care Team | Description | +--------+ + + + + | 06/16/ | Telephone | [facility] | Shaina Barrett | | | 2013 | | Floor [address] | | | | | St Mailcode: [facility] | | | | | | [facility] [place], [place] | | | | | | [address] | | | | | | [phone] | | | +--------+ + + + [...]
--- OUTSIDE RECORDS SUMMARY | ~2020-02-07 | XMS | Encounter Summary ---
Demographics + + + | Address | [address] | | | [place] [address] | + + + | Home Phone | | + + + | Preferred Language | Unknown | + + + | Marital Status | Single | + + + | Mormon Affiliation | Unknown | + + + | Race | White | + + + | Ethnic Group | Not or | + + + Author + + + | Author | [facility] | + + + | Organization | [facility] | + + + | Address | Unknown | + + + | Phone | Unavailable | + + + Support + + +---------+ + | Name | Relationship | Address | Phone | + + +---------+ + | John Miguel | ECON | Unknown | | + + +---------+ + Care Team Providers + +------+ + | Care Cloth Mercerizing Supervisor Name | Role | Phone | + +------+ + | Estiven Hallman DO | PCP | | + +------+ + Reason for Visit +--------+ + | Reason | Comments | +--------+ + | Pain | | +--------+ + Encounter Details +--------+ + + + + | Date | Type | Department | Care Team | Description | +--------+ + + + + | 09/17/ | Telephone | [facility] at [facility] | Benny Hernandez MD | Pain | | 2018 | | Floor [address] | [address] | | | | | St Mailcode: [facility] | Davin Alfonso | | | | | [facility] [place] | [place], [place] | | | | | [address] | [address] | | | | | [phone] | [phone] | | | | | | | [...]
--- OUTSIDE RECORDS SUMMARY | ~2020-02-07 | XMS | Encounter Summary ---
Demographics + + + | Address | [address] | | | [place] [address] | + + + | Home Phone [...] Author + + + | Author | [facility] | + + + | Organization | [facility] | + + + | Address | Unknown | + + + | Phone | Unavailable | + + + Support + + +---------+ + | Name | Relationship | Address | Phone | + + +---------+ + | John Miguel | ECON | Unknown | | + + +---------+ + Care Team Providers + +------+ + | Care Sales Associate Name | Role | Phone | + +------+ + | Mikki Barajas MD | PCP | | + +------+ + Reason for Visit + + + | Reason | Comments | + + + | Treatment Planning | | + + + Encounter Details +--------+ + + + + | Date | Type | Department | Care Team | Description | +--------+ + + + + | 08/04/ | Telephone | [facility] | Alda Marie | Treatment Planning | | 2019 | | [facility] at | W, PhD [address] | | | | | [facility] | [address] [place], [place] | | | | | [address] | [address] | | | | | Mailcode: CH15P | [phone] | | | | | [facility] | | | | | | and Healing, | | | | | | Building | | | | | | [place], [place] | | | | | | [address] | | | | | | [phone] | | | +--------+ + + + [...]
--- OUTSIDE RECORDS SUMMARY | ~2020-02-07 | XMS | Encounter Summary ---
Demographics + + + | Address | [address] | | | [place] [address] | + + + | Home Phone | | + + + | Preferred Language | Unknown | + + + | Marital Status | Single | + + + | Confucianism Affiliation | Unknown | + + + [...] Team Providers + +------+ + | Care Ekg Monitor Tech Name | Role | Phone | + +------+ + | Mikki Barajas MD | PCP | | + +------+ + Reason for Visit + + + | Reason | Comments | + + + | Lab Draw | Incorrect sample, cancelling order | + + + Encounter Details +--------+ + + + + | Date | Type | Department | Care Team | Description | +--------+ + + + + | 07/07/ | Telephone | Metabolic Genetics | Deidre Nguyen MD | Lab Draw (Incorrect | | 2019 | | at [facility] | [address] [facility] | sample, cancelling | | | | [address] | [address], | order) | | | | [facility] | [place] [address] | | | | | [facility] | [phone] | | | | | [address] [place] [address], | | | | | | [place] [address] | | | | | | [phone] | | | +--------+ + + + [...]
--- OUTSIDE RECORDS SUMMARY | ~2020-02-07 | XMS | Encounter Summary ---
Demographics + + + | Address | [address] | | | [place] [address] | + + + | Home Phone | | + + + | Preferred Language | Unknown | + + + | Marital Status | Single | + + + | Islam Affiliation | Unknown | + + + | Race | White | + + + | Ethnic Group | Not or | + + + Author + + + | Author | [facility] | + + + | Organization | [facility] | + + + | Address | Unknown | + + + | Phone | Unavailable | + + + Support + + +---------+ + | Name | Relationship | Address | Phone | + + +---------+ + | John Miguel | ECON | Unknown | | + + +---------+ + Care Team Providers + +------+ + | Care Steeler Name | Role | Phone | + +------+ + | Mikki Barajas MD | PCP | | + +------+ + Encounter Details +--------+ + + + + | Date | Type | Department | Care Team | Description | +--------+ + + + + | 04/27/ | Documentati | [facility] | [facility], Surgery | | | 2018 | on | Center at [facility] [address] | | | | | | [address] | | | | | | Mailcode: [facility] | | | | | | [facility] | | | | | [facility], [address] | | | | | | [place], [place] | | | | | | [address] | | | | | | [phone] | | | +--------+ + + + [...]
--- OUTSIDE RECORDS SUMMARY | ~2020-02-07 | XMS | Encounter Summary ---
Demographics + + + | Address | [address] | | | [place] [address] | + + + | Home Phone | | + + + | Preferred Language | Unknown | + + + | Marital Status | Single | + + + | Gnosticism Affiliation | Unknown | + + + | Race | White | + + + | Ethnic Group | Not or | + + + Author + + + | Author | [facility] | + + + | Organization | [facility] | + + + | Address | Unknown | + + + | Phone | Unavailable | + + + Support + + +---------+ + | Name | Relationship | Address | Phone | + + +---------+ + | John Miguel | ECON | Unknown | | + + +---------+ + Care Team Providers + +------+ + | Care Service Station Equipment Mechanic Name | Role | Phone | + +------+ + | Mikki Barajas MD | PCP | | + +------+ + Encounter Details +--------+ + + + + | Date | Type | Department | Care Team | Description | +--------+ + + + + | 04/27/ | Documentati | [facility] | Clinic, Surgery | | | 2018 | on | Center at [facility] [address] | | | | | | [address] | | | | | | Mailcode: [facility] | | | | | [facility] | | | | | | [facility], [address] | | | | | | [place], [place] | | | | | | [address] | | | | | | [phone] | | | +--------+ + + + [...]
--- OUTSIDE RECORDS SUMMARY | ~2020-02-07 | XMS | Encounter Summary ---
Demographics + + + | Address | [address] | | | [place] [address] | + + + | Home Phone | | + + + | Preferred Language | Unknown | + + + | Marital Status | Single | + + + | Advent Affiliation | Unknown | + + + [...] Team Providers + +------+ + | Care Administrative Associate Name | Role | Phone | + +------+ + PCP | Unavailable | + +------+ + Encounter Details +--------+ + + + + | Date | Type | Department | Care Team | Description | +--------+ + + + + | 04/30/ | Results | [facility] 7th | Fawad Muhammad, | | | 2003 | Only | Floor [address] | | | | | St Mailcode: [facility] | | | | | | [facility] [place], [place] | | | | | | [address] | | | | | | [phone] | | | +--------+ + + + [...] + | COMPLETE METABOLIC | Routin | 04/30/2004 | | Results for this | | SET | e | 4:48 PM | | procedure are in the | | (NA,K,CL,CO2,BUN,CRE | | PDT | | results section. | | AT,GLUC,CA,AST,ALT,B | | | | | | BECCA TOTAL,ALK | | | | | | PHOS,ALB,PROT TOTAL) | | | | | + +--------+ + + + | FREE T4 | Routin | 04/30/2004 | | Results for this | | | e | 4:48 PM | | procedure are in the | | | | PDT | | results section. | + +--------+ + + + | TSH | Routin | 04/30/2004 | | Results for this | | | e | 4:48 PM | | procedure are in the | | | | PDT | | results section. | + +--------+ + + + | TOTAL RESULTS | Routin | 04/30/2004 | | Results for this | | FOR,URINE | e | 4:01 PM | | procedure are in the | | | | PDT | | results section. | + +--------+ + + + | LAB OTHER | Routin | 04/30/2004 | | Results for this | | | e | 4:01 PM | | procedure are in the | | | | PDT | | results section. | + +--------+ + + + | PROTEIN, URINE | Routin | 04/30/2004 | | Results for this | | | e | 4:01 PM | | procedure are in the | | | | PDT | | results section. | + +--------+ + + + | LAB OTHER | Routin | 04/30/2004 | | Results for this | | | e | 4:00 PM | | procedure are in the | | | | PDT | | results section. | + +--------+ + + + | BETA 2 | Routin | 04/30/2004 | | Results for this | | MICROGLOBULIN, URINE | e | 4:00 PM | | procedure are in the | | | | PDT | | results section. | + +--------+ + + + documented in this encounter Results FREE T4, SERUM (04/30/2004 4:48 PM PDT) + + + + + + | Component | Value | Ref Range | Performed | Pathologist | | | | | At | Signature | + + + + + + | FREE T4, | 1.0Comment: Test | 0.7 - 1.8 ng/dL | | | | SERUM | performed by [facility] | | | | | | [facility] | | | | | | Laboratories. | | | | + + + + + + + + | Specimen | + + | | + + + + + + + | Performing | Address | City/State/Zipcode | Phone Number | | Organization | | | | + + + + + | [facility] | [address] | [place] [address] | | | LABORATORY | | | | + + + + + TSH-THYROID STIM HORMONE (04/30/2004 4:48 PM PDT) + + + + + + | Component | Value | Ref Range | Performed | Pathologist | | | | | At | Signature | + + + + + + | TSH | 1.30Comment: Test | 0.28 - 5.00 | | | | | performed by [facility] | uIU/ml | | | | | [facility] | | | | | | Laboratories. | | | | + + + + + + + + | Specimen | + + | | + + + + + + + | Performing | Address | City/State/Zipcode | Phone Number | | Organization | | | | + + + + + | [facility] | [address] | [place] [address] | | | LABORATORY | | | | + + + + + COMP METABOLIC SET (04/30/2004 4:48 PM PDT) + +---------+ + + + | Component | Value | Ref Range | Performed | Pathologist | | | | | At | Signature | + +---------+ + + + | GLUCOSE, | 94 | 65 - 110 mg/dL | [facility] | | | PLASMA | | | DEPARTMENT | | | (LAB) | | | OF | | | | | | PATHOLOGY | | + +---------+ + + + | BUN, PLASMA | 6 | 6 - 20 mg/dL | [facility] | | | (LAB) | | | DEPARTMENT | | | | | | OF | | | | | | PATHOLOGY | | + +---------+ + + + | CREATININE | 0.6 | 0.6 - 1.1 mg/dL | [facility] | | | PLASMA | | | DEPARTMENT | | | (LAB) | | | OF | | | | | | PATHOLOGY | | + +---------+ + + + | TOTAL | 7.1 | 6.1 - 7.9 g/dL | [facility] | | | PROTEIN, | | | DEPARTMENT | | | PLASMA | | | OF | | | (LAB) | | | PATHOLOGY | | + +---------+ + + + | ALBUMIN, | 3.7 | 3.5 - 4.7 g/dL | [facility] | | | PLASMA | | | DEPARTMENT | | | (LAB) | | | OF | | | | | | PATHOLOGY | | + +---------+ + + + | CALCIUM, | 9.3 | 8.5 - 10.5 | [facility] | | | PLASMA | | mg/dL | DEPARTMENT | | | (LAB) | | | OF | | | | | | PATHOLOGY | | + +---------+ + + + | BILIRUBIN | 0.5 | 0.3 - 1.2 mg/dL | [facility] | | | TOTAL | | | DEPARTMENT | | | | | | OF | | | | | | PATHOLOGY | | + +---------+ + + + | ALK PHOS | 85 | 42 - 98 U/L | [facility] | | | | | | DEPARTMENT | | | | | | OF | | | | | | PATHOLOGY | | + +---------+ + + + | AST(SGOT) | 26 | 15 - 41 U/L | [facility] | | | | | | DEPARTMENT | | | | | | OF | | | | | | PATHOLOGY | | + +---------+ + + + | SODIUM, | 141 | 136 - 145 | [facility] | | | PLASMA | | mmol/L | DEPARTMENT | | | (LAB) | | | OF | | | | | | PATHOLOGY | | + +---------+ + + + | POTASSIUM, | 4.0 | 3.5 - 5.1 | [facility] | | | PLASMA | | mmol/L | DEPARTMENT | | | (LAB) | | | OF | | | | | | PATHOLOGY | | + +---------+ + + + | CHLORIDE, | 108 (H) | 98 - 107 mmol/L | [facility] | | | PLASMA | | | DEPARTMENT | | | (LAB) | | | OF | | | | | | PATHOLOGY | | + +---------+ + + + | TOTAL CO2, | 28 | 23 - 29 mmol/L | [facility] | | | PLASMA | | | DEPARTMENT | | | (LAB) | | | OF | | | | | | PATHOLOGY | | + +---------+ + + + | ALT (SGPT) | 30 | 13 - 48 U/L | [facility] | | | | | | DEPARTMENT | | | | | | OF | | | | | | PATHOLOGY | | + +---------+ + + + + + | Specimen | + + | | + + + + + + + | Performing | Address | City/State/Zipcode | Phone Number | | Organization | | | | + + + + + | [facility] DEPARTMENT OF | [address] | [place] [address] | | | PATHOLOGY | [address] | | | + + + + + | [facility] DEPARTMENT OF | [address] | [place], [place] [address] | | | PATHOLOGY | [address] | | | + + + + + LAB OTHER (04/30/2004 4:01 PM PDT) + + + + + + | Component | Value | Ref Range | Performed | Pathologist | | | | | At | Signature | + + + + + + | MISC REF | Microalbumin, Urine | | [facility] | | | TEST NAME | | | DEPARTMENT | | | | | | OF | | | | | | PATHOLOGY | | + + + + + + | MISC REF | | | [facility] | | | TEST RESULT | | | DEPARTMENT | | | | REF.ANALYTE | | OF | | | | | | PATHOLOGY | | | | RESULT | | | | | | RANGEMicroalbumin | | | | | | 3.1 | | | | | | mg/dLMicroalbumin/Creat. | | | | | | Ratio 10 mg/g 0-30 | | | | + + + + + + | REFERRAL | Referred to VENKAT JULES | | [facility] | | | LAB NAME | | | DEPARTMENT | | | | | | OF | | | | | | PATHOLOGY | | + + + + + + + + | Specimen | + + | | + + + + + | Narrative | Performed At | + + + | Free Text changed 06/15/04 15:57: previously reported as: | [facility] | | Microalbumin 3.1 mg/dL Microalbumin/Creat. Ratio | DEPARTMENT OF | | 10 mg/g 0-30 | PATHOLOGY | + + + + + + + + | Performing | Address | City/State/Zipcode | Phone Number | | Organization | | | | + + + + + | [facility] DEPARTMENT OF | [address] | [place] [address] | | | PATHOLOGY | [address] | | | + + + + + | [facility] DEPARTMENT OF | [address] [facility] | [place] [address] | | | PATHOLOGY | [address] | | | + + + + + PROTEIN, URINE (04/30/2004 4:01 PM PDT) + + + + + + | Component | Value | Ref Range | Performed | Pathologist | | | | | At | Signature | + + + + + + | PROTEIN | Specimen unsatisfactory. | mg/L | [facility] | | | CONC URINE | | | DEPARTMENT | | | | | | OF | | | | | | PATHOLOGY | | + + + + + + + + | Specimen | + + | | + + + + + | Narrative | Performed At | + + + | Urine Chemistry Master Sample frozen; no longer acceptable for | [facility] | | testing. | DEPARTMENT OF | | | PATHOLOGY | + + + + + + + + | Performing | Address | City/State/Zipcode | Phone Number | | Organization | | | | + + + + + | [facility] DEPARTMENT OF | [address] | [place] [address] | | | PATHOLOGY | [address] | | | + + + + + | [facility] DEPARTMENT OF | [address] | [place] [address] | | | PATHOLOGY | [address] | | | + + + + + TOTAL RESULTS FOR,URINE (04/30/2004 4:01 PM PDT) + + + + + + | Component | Value | Ref Range | Performed | Pathologist | | | | | At | Signature | + + + + + + | COLLECTION | RandomComment: | hr | [facility] | | | INTERVAL, | Normal values based on | | DEPARTMENT | | | UR | 24 Hrs. collection | | OF | | | | interval. Patient | | PATHOLOGY | | | | results are | | | | | | calculated from actual | | | | | | collection interval | | | | | | andvolume. | | | | + + + + + + | URINE | Spot | mL | [facility] | | | VOLUME - | | | DEPARTMENT | | | UCM | | | OF | | | | | | PATHOLOGY | | + + + + + + + + | Specimen | + + | | + + + + + | Narrative | Performed At | + + + | Urine Chemistry Master Sample frozen; no longer acceptable for | [facility] | | testing. | DEPARTMENT OF | | | PATHOLOGY | + + + + + + + + | Performing | Address | City/State/Zipcode | Phone Number | | Organization | | | | + + + + + | [facility] | [address] | [place] [address] | | | PATHOLOGY | [address] | | | + + + + + | [facility] | [address] [place] [address] | [place] [address] | | | PATHOLOGY | [address] | | | + + + + + LAB OTHER (04/30/2004 4:00 PM PDT) + + + + + + | Component | Value | Ref Range | Performed | Pathologist | | | | | At | Signature | + + + + + + | MISC REF | Creatinine, Urine | | [facility] | | | TEST NAME | | | DEPARTMENT | | | | | | OF | | | | | | PATHOLOGY | | + + + + + + | MISC REF | 312 mg/dL | | [facility] | | | TEST RESULT | | | DEPARTMENT | | | | | | OF | | | | | | PATHOLOGY | | + + + + + + | REFERRAL | Referred to VENKAT JULES | | [facility] | | | LAB NAME | | | DEPARTMENT | | | | | | OF | | | | | | PATHOLOGY | | + + + + + + + + | Specimen | + + | | + + + + + | Narrative | Performed At | + + + | This test was added on to a previous sample. Repeated temperature | [facility] | | fluctuations may adversely affect the validity of results from some | DEPARTMENT OF | | assays. Interpretation of the results for this assay should take this | PATHOLOGY | | potential into concideration. Free Text changed 06/15/04 15:53: | | | previously reported as: This test was added on to a previous sample. | | | Repeated temperature fluctuations may adversely affect the validity | | | of results from some assays. Interpretation of the results for this | | | assay should take this potential into concideration. Free Text | | | changed 06/15/04 15:53: previously reported as: This test was added | | | on to a previous sample. Repeated temperature fluctuations may | | | adversely affect the validity of results fro some assays. | | | Interpretation of the results for this assay should take this | | | potential into concideration. | | + + + + + + + + | Performing | Address | City/State/Zipcode | Phone Number | | Organization | | | | + + + + + | [facility] DEPARTMENT OF | [address] | [place] [address] | | | PATHOLOGY | [address] | | | + + + + + | [facility] OF | [address] | [place] [address] | | | PATHOLOGY | [address] | | | + + + + + BETA 2 MICROGLOBULIN, URINE (04/30/2004 4:00 PM PDT) + + + + + + | Component | Value | Ref Range | Performed | Pathologist | | | | | At | Signature | + + + + + + | BETA 2 | 121 | 1 - 160 ug/L | | | | MICROGLOBUL | | | | | | IN, URINE | | | | | + + + + + + | BETA 2 | 39 | <301 ug/gCR | | | | MICRO, UG/G | | | | | | AUTO [employer]IVER | | | | | + + + + + + | PH, B2 | 8.0 | | | | | MICRO URINE | | | | | + + + + + + | CREATININE | 312Comment: Test | None Given | | | | URINE | performed by [facility] | mg/dL | | | | [facility] | Laboratories. | | | | | ON | | | | | + + + + + + | URINE | Spot | hr | | | | COLLECTION | | | | | + + + + + + | URINE | Random | mL | | | | VOLUME(REF) | | | | | + + + + + + + + | Specimen | + + | | + + + + + + + | Performing | Address | City/State/Zipcode | Phone Number | | Organization | | | | + + + + + | [facility] | [address] | [place], [place] | | | [facility] | | [address] | | + + + + + documented in this encounter Visit Diagnoses Not on filedocumented in this encounter"
--- OUTSIDE RECORDS SUMMARY | ~2020-02-07 | XMS | Encounter Summary ---
Demographics + + + | Address | [address] | | | [place] [address] | + + + | Home Phone | | + + + | Preferred Language | Unknown | + + + | Marital Status | Single | + + + | Muslim Affiliation | Unknown | + + + [...] | + + +---------+ + | John Enrique | ECON | Unknown | | + + +---------+ + Care Team Providers + +------+ + | Care Case Consultant Name | Role | Phone | + +------+ + PCP | Unavailable | + +------+ + Encounter Details +--------+ + + + + | Date | Type | Department | Care Team | Description | +--------+ + + + + | 10/15/ | [facility] | | Letter, Clinic | Letters | | 2005 | scribed | | | | +--------+ + + [...] + + documented as of this encounter Progress Notes Interface, Substation Operator Automatic In - 04/14/2005 12:36 AM PDT [id number] 10/15/2004 10/15/2004 [id number] IVA [facility] [address] [id number] or October 15, 2004 Fab Delarosa M.D. RE: JARVIS ENRIQUE MR #: [id number] Dear Doctors: We saw your patient, Jarvis Enrique, in the Metabolic Clinic at [facility] on October 15, 2004. I saw Ms. Enrique together with Estefani Taylor M.D., Pediatric resident. We saw and examined Ms. Enrique together. Our findings are accurately documented in the resident's note. We discussed the case together. Doctors, thanks so much for referring Jarvis Enrique to the Metabolic Clinic. Please feel free to call, write, or e-mail if you have any questions or wish to discuss her care. My phone number is , fax , and e-mail [email or web address] Sincerely, Fawad Muhammad M.D. Orthophotography Technician of Pediatrics and Molecular Medical Genetics e-mail:[email or web address] / [id number] / [id number] / [id number] / Jeni Mckeon documented i n this encounter Plan of Treatment Not on filedocumented as of this encounter Visit Diagnoses Not on filedocumented in this encounter"
--- OUTSIDE RECORDS SUMMARY | ~2020-02-07 | XMS | Encounter Summary ---
Demographics + + + | Address | [address] | | | [place] [address] | + + + | Home Phone | | + + + | Preferred Language | Unknown | + + + | Marital Status | Single | + + + | Roman Catholic Affiliation | Unknown | + + + | Race | White | + + + | Ethnic Group | Not or | + + + Author + + + | Author | [facility] | + + + | Organization | [facility] | + + + | Address | Unknown | + + + | Phone | Unavailable | + + + Support + + +---------+ + | Name | Relationship | Address | Phone | + + +---------+ + | John Miguel | ECON | Unknown | | + + +---------+ + Care Team Providers + +------+ + | Care Clam Digger Name | Role | Phone | + +------+ + | Lexx Estiven DO | PCP | | + +------+ + Encounter Details +--------+ + + + + | Date | Type | Department | Care Team | Description | +--------+ + + + + | 01/12/ | Orders Only | Digestive Health | Martina Youssef, | | | 2019 | | [place] [facility] [address] | RN [address] [facility] [address] | | | | | [address] | [address] | | | | | Mailcode: Center | [place], [place] | | | | | [facility] and | [phone] | | | | | Healing, [address] | | | | | | [place], [place] | | | | | | [address] | | | | | | [phone] | | | +--------+ + + + [...]
--- OUTSIDE RECORDS SUMMARY | ~2020-02-07 | XMS | Encounter Summary ---
Demographics + + + | Address | [address] | | | [place] [address] | + + + | Home Phone | | + + + | Preferred Language | Unknown | + + + | Marital Status | Single | + + + | Moravian Affiliation | Unknown | + + + [...] Team Providers + +------+ + | Care Radio Repairer Name | Role | Phone | + +------+ + | Florian Martinez I | PCP | Unavailable | + +------+ + Encounter Details +--------+ + + + + | Date | Type | Department | Care Team | Description | +--------+ + + + + | 11/25/ | [facility] | Allergy Clinic at | Letter, Clinic | Letters | | 2006 | scribed | [facility] | | | | | | Anjali Todd | | | | | | Davin Perez | | | | | | [address] | | | | | | [place], [place] | | | | | | [address] | | | | | | [phone] | | | +--------+ + + + [...] as of this encounter Progress Notes Interface, Eradicator In - 11/27/2006 2:35 AM PDT [id number] 11/25/2006 11/25/2006 [id number] IVA [id number] [id number] [place] [id number] or November 25, 2006 Florian Martinez [facility] [address] [place] [address] RE: JARVIS ENRIQUE MR #: [id number] Dear Dr. Martinez, We saw your patient, Jarvis Enrique, in the Metabolic Clinic at [facility] on November 25, 2006. 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 She is now 26 years old. I see her regularly every 6 months for her Fabry disease. You and I have been in contact by telephone regarding this recent episode. It is a little bit hard for me to decipher her history accurately because it is quite convoluted and full of a lot of symptoms, but I will attempt to summarize it. She had a Port-A-Cath placed 6-8 weeks ago. She has had soreness over the Port-A-Cath site off and on. She says she was elbowed at work, right at the Port-A-Cath site shortly after it was put in, and it became black and blue and sore around it. She was seen in the clinic for these symptoms and reassured that everything looked fine. The next day (and this was 4-6 weeks ago), she developed hand tremors, headaches, nausea, what sounds like vertigo, and diplopia. She was seen by you during this time, and no obvious explanation for her signs and symptoms was found. She also says she has lost weight over the last 4-6 weeks. Jarvis relays that you treated her Compazine and Phenergan, but she has had bad reactions to Compazine. She also has not been sleeping well. She continues to have intermittent nausea, vomiting, dizziness, and diplopia over the past 4-6 weeks. She has never really had this before. Her nausea and vomiting seems correlated, according to her, with her vertigo and dizziness. Yesterday, her vomiting was so bad that she was vomiting up clots that looked like old blood. She went to the emergency department and said that they did an ultrasound of her abdomen looking for gallbladder disease and that they apparently did not find anything. She has had abdominal pain along with these other symptoms. Specifically, now she says she has a sharp pain in her right side that radiates to her lower right back. Yesterday, in the ED, she says she was treated with morphine and Demerol. This was all done in the [place] area, and I do not have copies of any of these medical records. The patient says that a urinary tract infection was ruled out and gallbladder disease was ruled out, but she does not feel anything else was really done. Jarvis began infusions of enzyme replacement therapy as specific treatment for Fabry disease using Fabrazyme 3-1/2 months ago. She has not missed any infusions. Her infusions are every 2 weeks. Initially, for the first month or so, she thought she was getting better from the infusions. Then she started having these problems. She does not feel like her symptoms are related to the infusions at all. There is no correlation of her symptoms according to when she receives her infusions according to the patient. Physical Examination: Weight today is 128 kg, heart rate 75, blood pressure 117/80. This is an alert woman who is in distress that appears mild and intermittent. HEENT: Pupils equal, round, and reactive to light. Extraocular movements intact. Fundi normal. Oropharynx normal. Neck supple. She does complain of some soreness when I palpate the anterior neck, but she feels this is likely from persistent vomiting. Chest: Port site looks well healed. It is not red nor swollen and is not significantly painful to the touch. Abdomen is soft. There is no obvious rebound tenderness or involuntary guarding. There is, however, some degree of voluntary guarding, and she does have tenderness to palpation pretty much across her entire abdomen. The tenderness does not localize well. I cannot feel any obvious masses and she does not have apparent hepatosplenomegaly, but she is obese and the exam is difficult, especially with her voluntary guarding. It does seem like she may have stool present in her abdomen. Extremities: Full range of motion with no obvious deformities. Neurologic: Strength normal. Tone normal. Deep tendon reflexes 2+ and symmetric bilaterally. Gait normal. Cerebellar function intact. Mydazy-pt-[id number] testing normal. Impression: A 26-year-old with Fabry disease who recently started enzyme replacement therapy 3 months ago. She now has numerous medical complaints including apparent nausea and vomiting, vertigo, dizziness, diplopia, and abdominal pain over the last 4-6 weeks. I am not sure exactly what is going on. She may have 2 problems that are occurring at the same time. Vertigo with associated nausea and vomiting can be associated with Fabry disease. At the extreme, one can have stroke or stroke-like episodes with Fabry disease that can cause these symptoms, but they can occur even without stroke. The rest of the neurologic evaluation is entirely normal, so I doubt this is a stroke or stroke-like episode. However, her vertigo, nausea and vomiting, still may be from her Fabry disease. Her abdominal pain, I suppose, could be from persistent vomiting, and so could also stem from the vertigo, but I am concerned that this could be something else and that we should rule out all possibilities. She does seem like she could be constipated, even though she says she has had diarrhea recently and no constipation. Constipation could be causing her abdominal pain. Recommendations: This is a complex problem in a patient with a number of systemic complaints, who does have a real systemic disorder. All this makes the evaluation highly complex. In order to try to sort this out, I recommend referral to specialists. Specifically, it would be good for her to see a public affairs specialist and make sure that she does not have any underlying condition causing her abdominal pain. If there is not a public affairs specialist who can see her in the [facility] in the near future, then a general surgeon would be the next choice. Secondly, I recommend consider referring her to the BIOSOLIDS MANAGEMENT TECHNICIAN for a pelvic exam and to make sure she does not have a pelvic infection or other pelvic disease. Third, it would be good for her to see an ear, nose, and throat specialist for evaluation for vertigo. I am not aware of any specific treatment for Fabry disease that has been shown to work for the vertigo that is associated with Fabry disease, so the usual remedies for vertigo could be tried. In addition, enzyme replacement therapy should, in the termination clerk, help with a lot of these signs and symptoms, and I reassured the patient to this effect. She should be excused from work for these evaluations, for seeing me today, and when she is acutely ill with significant vertigo and/or nausea, vomiting, or severe abdominal pain. I would like to see her back for routine followup in 6 months, but I am certainly available to see her sooner if she continues to have problems. In addition, I am happy to talk again after she has seen these specialists and/or if you have any questions or concerns about her health related to her Fabry's disease. Dr. Martinez, thanks so much for allowing me to participate in the care of your patient, Jarvis Enrique. Please feel free to call, write, or e-mail if you have any questions or wish to discuss her care. E-mail: [email or web address] Sincerely, Fawad Muhammad M.D. Professor of Pediatrics and Molecular Medical Genetics e-mail:[email or web address] / [id number] [email or web address] [id number] [email or web address] [id number] / documented in this encounter Plan of Treatment Not on filedocumented as of this encounter Visit Diagnoses Not on filedocumented in this encounter"
--- OUTSIDE RECORDS SUMMARY | ~2020-02-07 | XMS | Encounter Summary ---
Demographics + + + | Address | [address] | | | [place] [address] | + + + | Home Phone | | + + + | Preferred Language | Unknown | + + + | Marital Status | Single | + + + | Mandaen Affiliation | Unknown | + + + | Race | White | + + + | Ethnic Group | Not or | + + + Author + + + | Author | [facility] | + + + | Organization | [facility] | + + + | Address | Unknown | + + + | Phone | Unavailable | + + + Support + + +---------+ + | Name | Relationship | Address | Phone | + + +---------+ + | John Miguel | ECON | Unknown | | + + +---------+ + Care Team Providers + +------+ + | Care Manager Aerospace Name | Role | Phone | + +------+ + | Fausto Sinclair | PCP | | + +------+ + Encounter Details +--------+ + + + + | Date | Type | Department | Care Team | Description | +--------+ + + + + | 06/23/ | Documentati | [facility] | Shaina Barrett | | | 2012 | on | Floor [address] | | | | | [address] Mailcode: [facility] | | | | | | [facility] [place], [place] | | | | | | [address] | | | | | | [phone] | | | +--------+ + + + [...]
--- OUTSIDE RECORDS SUMMARY | ~2020-02-07 | XMS | Clinical Summary ---
Demographics + + + | Address | [address] | | | [place] [address] | + + + | Home Phone | | + + + | Preferred Language | Unknown | + + + | Marital Status | Single | + + + | Caodaism Affiliation | Unknown | + + + | Race | White | + + + | Ethnic Group | Not or | + + + Author + + + | Author | [facility] | + + + | Organization | [facility] | + + + | Address | Unknown | + + + | Phone | Unavailable | + + + Support + + +---------+ + | Name | Relationship | Address | Phone | + + +---------+ + | John Miguel | ECON | Unknown | | + + +---------+ + Care Team Providers + +------+ + | Care Drug Safety Physician Name | Role | Phone | + +------+ + | Mikki Barajas MD | PCP | | + +------+ + Source Comments IGNACIO is fully live on both [facility] and [facility] InPatient.[facility] Allergies + + + + + + | Active Allergy | Reactions | Severity | Noted | Comments | | | | | Date | | + + + + + + | Amoxicillin-Pot | Nausea and Vomiting | High | 07/07/20 | rash | | Clavulanate | | | 18 | | + + + + + + | Clarification Needed | | | 05/01/20 | PEN V K | | | | | 04 | | + + + + + + | Doxycycline | Rash | Medium | 07/07/20 | | | | | | 18 | | + + + + + + | Sulfa (Sulfonamide | | | 05/01/20 | | | Antibiotics) | | | 04 | | + + + + + + Medications + + + +---------+------+------+-------+ | Medication | Sig | Dispensed | Refills | Star | End | Statu | | | | | | t | Date | s | | | | | | Date | | | + + + +---------+------+------+-------+ | amitriptyline 25 | Take 75 mg by mouth | | 0 | | | Activ | | mg Oral Tablet | once daily at | | | | | e | | | bedtime. Pt reports | | | | | | | | taking three tablets | | | | | | | | once per day | | | | | | + + + +---------+------+------+-------+ | acetaminophen 325 | Take 325 mg by mouth | | 0 | | | Activ | | mg Oral | every four hours as | | | | | e | | tabletIndications: | needed. 2 tabs | | | | | | | headache disorder | daily for headaches. | | | | | | | | Indications: | | | | | | | | HEADACHE DISORDER | | | | | | + + + +---------+------+------+-------+ | Agalsidase Beta | Inject 140 mg into | 140 mg | 26 | 10/0 | | Activ | | (FABRAZYME) 35 mg | the vein (IV) every | | | 1/20 | | e | | intravenous recon | fourteen days. | | | 14 | | | | solnIndications: | Indications: Fabry | | | | | | | Fabry disease | Disease | | | | | | + + + +---------+------+------+-------+ | LATUDA 120 mg oral | 120 mg once daily. | | 0 | 01/2 | | Activ | | tablet | | | | 04/03 | | e | | | | | | 16 | | | + + + +---------+------+------+-------+ | hydrOXYzine | Take 50 mg by mouth | | 0 | 12/2 | | Activ | | pamoate 50 mg oral | as needed. | | | 05/04 | | e | | capsule | | | | 16 | | | + + + +---------+------+------+-------+ | prazosin 2 mg oral | Take 2 mg by mouth | | 0 | 12/2 | | Activ | | capsule | once daily at | | | 820 | | e | | | bedtime. | | | 16 | | | + + + +---------+------+------+-------+ | propranolol 40 mg | Take 40 mg by mouth | | 0 | 12/2 | | Activ | | oral tablet | three times daily. | | | 05/04 | | e | | | | | | 16 | | | + + + +---------+------+------+-------+ | VICTOZA 2-DESTINEE 0.6 | Inject 1.8 mg under | | 1 | 02/1 | | Activ | | mg/0.1 mL (18 mg/3 | the skin (SUBC) once | | | 3/20 | | e | | mL) subcutaneous pen | daily at bedtime. | | | 17 | | | | injector | | | | | | | + + + +---------+------+------+-------+ | JANUVIA 100 mg | Take 100 mg by mouth | | 1 | 02/1 | | Activ | | oral tablet | once daily. | | | 8/20 | | e | | | | | | 17 | | | + + + +---------+------+------+-------+ | omeprazole 20 mg | Take 20 mg by mouth | | 1 | 02/1 | | Activ | | oral capsule,delayed | once daily at | | | 0/20 | | e | | release(DR/EC) | bedtime. | | | 17 | | | + + + +---------+------+------+-------+ | insulin glargine | Inject 45 Units | | 0 | | | Activ | | 100 unit/mL | under the skin | | | | | e | | subcutaneous | (SUBC) once daily in | | | | | | | solution | the morning. | | | | | | + + + +---------+------+------+-------+ | ergocalciferol | Take 1 capsule by | 12 | 0 | 04/3 | | Activ | | 50,000 unit oral | mouth every seven | capsule | | 0/20 | | e | | capsuleIndications: | days. For 12 weeks | | | 19 | | | | vitamin D deficiency | Indications: Vitamin | | | | | | | (high dose therapy) | D Deficiency (High | | | | | | | | Dose Therapy) | | | | | | + + + +---------+------+------+-------+ | cholecalciferol | Take 1 capsule by | 90 | 1 | 04/3 | | Activ | | (Vitamin D3) | mouth once daily. | capsule | | 0/20 | | e | | (VITAMIN D3) 2,000 | | | | 19 | | | | unit oral capsule | | | | | | | + + + +---------+------+------+-------+ | NOVOLOG U-100 | | | 0 | 10/0 | | Activ | | INSULIN ASPART 100 | | | | 3/20 | | e | | unit/mL subcutaneous | | | | 19 | | | | solution | | | | | | | + + + +---------+------+------+-------+ Active Problems + + + | Problem | Noted Date | + + + | Morbid obesity due to excess calories | 02/03/2017 | + + + + + | Overview: Overview: | | Dx Name changed by system update on 06/27/2017 | + + + + + | DM type 2 without retinopathy | 02/03/2017 | + + + | Fabry disease | 02/03/2017 | + + + | Esophageal reflux | 02/03/2017 | + + + + + | Overview: Overview: (09/29/2009 diagnostic report from | | [facility] moderate chronic gastritis) | + + + + + | Benign essential HTN | 02/03/2017 | + + + | Fabry disease | 01/22/2011 | + + + | Other malaise and fatigue | 11/18/2008 | + + + + + | Overview: Overview: | | pos EBV | + + + + + | Depressive disorder, not elsewhere classified | 11/16/2007 | + + + + + | Overview: Overview: | | PER [facility] NOTES | + + Resolved Problems + + + + | Problem | Noted | Resolved | | | Date | Date | + + + + | Lipidosis | 07/01/20 | | | | 05 | 4 | + + + + + + | Overview: ICD10 | + + Encounters +--------+ + + + + | Date | Type | Specialty | Care Team | Description | +--------+ + + + + | 01/03/ | Telephone | Medical Genetics | Deidre Nugyen MD | Other (switching to | | 2019 | | | | home infusions) | +--------+ + + + + | 12/01/ | Telephone | Medical Genetics | Deidre Nguyen MD | | | 2019 | | | | | +--------+ + + + + from Last 3 Months Family History + + +------+ + | Medical History | Relation | Name | Comments | + + +------+ + | Prostate Cancer | Maternal | | | | | Grandfath | | | | | er | | | + + +------+ + | Breast Cancer | Maternal | | | | | Grandmoth | | | | | er | | | + + +------+ + | Fabry's disease | Mother | | | + + +------+ + | Heart Disease | Mother | | V Fib, and has a AICD no history of | | | | | cardiomyopathy | + + +------+ + + +------+ + + | Relation | Name | Status | Comments | + +------+ + + | Father | | | health unknown | + +------+ + + | Maternal Grandfather | | | | + +------+ + + | Maternal Grandmother | | | | + +------+ + + | Mother | | Alive | | + +------+ + + Social History + +-------+ +--------+------+ [...] recent travel history available. | + + Last Filed Vital Signs + + + + + | Vital Sign | Reading | Time Taken | Comments | + + + + + | Blood Pressure | 91/49 | 07/06/2019 10:12 AM | | | | | PDT | | + + + + + | Pulse | 73 | 07/06/2019 10:12 AM | | | | | PDT | | + + + + + | Temperature | 36.8 C (98.2 F) | 02/03/2017 10:58 AM | | | | | PDT | | + + + + + | Respiratory Rate | 16 | 01/12/2019 9:43 AM | | | | | PDT | | + + + + + | Oxygen Saturation | 98% | 01/12/2019 9:43 AM | | | | | PDT | | + + + + + | Inhaled Oxygen | - | - | | | Concentration | | | | + + + + + | Weight | 148.6 kg (327 lb 9.7 | 07/06/2019 10:12 AM | | | | oz) | PDT | | + + + + + | Height | 163.7 cm (5' 4.45") | 07/06/2019 10:12 AM | | | | | PDT | | + + + + + | Body Mass Index | 55.45 | 07/06/2019 10:12 AM | | | | | PDT | | + + + + + Plan of Treatment + + + + + | Health Maintenance | Due Date | Last Done | Comments | + + + + + | Pneumococcal | | 12/30/2018 | | | vaccination ( | 5 | | | | - PPSV23) | | | | + + + + + | Influenza (Flu) | Completed | 06/28/2019, 06/30/2008, | | | vaccination | | 06/30/2008, Additional history | | | | | exists | | + + + + + Results Not on filefrom Last 3 Months Insurance + +--------+ +--------+ + +--------+ | Payer | Benefi | Subscriber | Effect | Phone | Address | Type | | | t Plan | ID | ed | | | | | | / | | Dates | | | | | | Group | | | | | | + +--------+ +--------+ + +--------+ | MEDICARE | MEDICA | xxxxxxxxxxx | 09/15/19 | [phone] | [address] | [address] | | | RE A & | | [address]-Pre | [phone] | [address] | | | [address] | | sent | | [place], [place] | | | | | | | | [address] | | + +--------+ +--------+ + +--------+ | HOT BRAIDER MEDICAID | HOT BRAIDER | xxxxxxxx | | | | Medica | | | [place]AST[place] | | 012-Pr | | | id | | | [place] | | esent | | | | + +--------+ +--------+ + +--------+ + +--------+ +--------+ + + | Guarantor Name | Accoun | Relation to | Date | Phone | Billing Address | | | t Type | Patient | of | | | | | | | | | | + +--------+ +--------+ + + | Jarvis Miguel | Person | Self [birth year] | [address] | | [place] | al/Fam | | 1980 | [phone] | [place] [address] | | | andrew | | | 3 (Home) | | + +--------+ +--------+ + + Advance Directives + + + + + | Type | Date Recorded | Patient | Explanation | | | | Core Sucker | | + + + + + | Advance | | | | | Directives and | | | | | Living Will | | | | + + + + + | Power of | | | | | [employer] | | | | + + + + +
--- OUTSIDE RECORDS SUMMARY | ~2020-02-07 | XMS | Encounter Summary ---
Demographics + + + | Address | [address] | | | [place] [address] | + + + | Home Phone | | + + + | Preferred Language | Unknown | + + + | Marital Status | Single | + + + | Zoroastrianism Affiliation | Unknown | + + + | Race | White | + + + | Ethnic Group | Not or | + + + Author + + + | Author | [facility] | + + + | Organization | [facility] | + + + | Address | Unknown | + + + | Phone | Unavailable | + + + Support + + +---------+ + | Name | Relationship | Address | Phone | + + +---------+ + | John Miguel | ECON | Unknown | | + + +---------+ + Care Team Providers + +------+ + | Care Intelligence Intern Name | Role | Phone | + +------+ + | Mikki Barajas MD | PCP | | + +------+ + Encounter Details +--------+ + + + + | Date | Type | Department | Care Team | Description | +--------+ + + + + | 07/14/ | Ancillary | Registration [id number] | Fawad Muhammad, | | | 2005 | Registratio | ERMELINDA Montiel MD | | | | n | [address] Mailcode: [id number] | | | | | | [place], [place] | | | | | | [address] | | | | | | [phone] | | | +--------+ + + + [...]
--- OUTSIDE RECORDS SUMMARY | ~2020-02-07 | XMS | Clinical Summary ---
Demographics + + + | Address | [address] | | | [place] [address] | + + + | Home Phone | | + + + | Preferred Language | Unknown | + + + | Marital Status | Single | + + + | Baptist Affiliation | Unknown | + + + | Race | Unknown | + + + | Ethnic Group | Unknown | + + + Author + + + | Author | [facility] | | | and [place] | + + + | Organization | [facility] | | | and [place] | + + + | Address | Unknown | + + + | Phone | Unavailable | + + + Support + + + + + | Name | Relationship | Address | Phone | + + + + + | Jordny Miguel | ECON | NONE | | | | | [place] [address] | | + + + + + | Jordyn Miguel | ECON | NONE | + | | | | [place] [address] | | + + + + + Care Team Providers + +------+ + | Care Corduroy Cutting Supervisor Name | Role | Phone | + +------+ + | Estiven Hallman DO | PCP | | + +------+ + Allergies + + + + + + | Active Allergy | Reactions | Severity | Noted | Comments | | | | | Date | | + + + + + + | Amoxicillin | Nausea And Vomiting | | 05/04/20 | | | | | | 18 | | + + + + + + | Valproic Acid | Hives, Shortness Of | High | 05/04/20 | | | | Breath | | 18 | | + + + + + + | Gabapentin | Swelling, Other (See | | 05/04/20 | Swelling of hands | | | Comments) | | 18 | and feet | + + + + + + | Ziprasidone | Other (See Comments) | | 05/04/20 | | | | | | 18 | | + + + + + + | Penicillins | Other (See Comments) | | 05/04/20 | Reaction not | | | | | 18 | specified in outside | | | | | | medical records | + + + + + + | Sulfa Antibiotics | Rash | Low | 05/01/20 | | | | | | 04 | | + + + + + + Medications + + + +---------+------+------+-------+ | Medication | Sig | Dispensed | Refills | Star | End | Statu | | | | | | t | Date | s | | | | | | Date | | | + + + +---------+------+------+-------+ | amitriptyline | Take 2 tablets by | | 0 | | | Activ | | (ELAVIL) 25 mg | mouth At Bedtime. | | | | | e | | tablet | | | | | | | + + + +---------+------+------+-------+ | lurasidone | Take 1 tablet by | | 0 | 01/2 | | Activ | | (LATUDA) 120 mg | mouth Daily. | | | 04/03 | | e | | tablet | | | | 16 | | | + + + +---------+------+------+-------+ | estradiol | Take 1 tablet by | | 0 | 01/2 | | Activ | | (ESTRACE) 1 mg | mouth Daily. | | | 04/03 | | e | | tablet | | | | 16 | | | + + + +---------+------+------+-------+ | SITagliptin | Take 1 tablet by | | 0 | 02/1 | | Activ | | (JANUVIA) 100 mg | mouth Daily. | | | 05/04 | | e | | tablet | | | | 17 | | | + + + +---------+------+------+-------+ | glipiZIDE | Take 1 tablet by | | 0 | 12/2 | | Activ | | (GLUCOTROL XL) 10 mg | mouth Daily. | | | 03/04 | | e | | ER tablet | | | | 16 | | | + + + +---------+------+------+-------+ | ondansetron | Take 1 tablet by | | 0 | 10/16 | | Activ | | (ZOFRAN) 4 mg tablet | mouth 3 times daily. | | | 05/04 | | e | | | | | | 17 | | | + + + +---------+------+------+-------+ | pregabalin | Take 150 mg by mouth | | 0 | | | Activ | | (LYRICA) 150 MG | 3 times daily. | | | | | e | | capsule | | | | | | | + + + +---------+------+------+-------+ | diclofenac | Apply topically. | | 0 | | | Activ | | (VOLTAREN) 1% GEL | | | | | | e | + + + +---------+------+------+-------+ | meloxicam (MOBIC) | Take 15 mg by mouth | | 0 | | | Activ | | 15 mg tablet | Daily. | | | | | e | + + + +---------+------+------+-------+ | omeprazole | Take 1 capsule by | | 0 | 02/1 | | Activ | | (PRILOSEC) 20 mg | mouth Daily. | | | 0/20 | | e | | capsule | | | | 17 | | | + + + +---------+------+------+-------+ | propranolol | Take 1 tablet by | | 0 | 12/2 | | Activ | | (INDERAL) 40 mg | mouth nightly. | | | 8/20 | | e | | tablet | | | | 16 | | | + + + +---------+------+------+-------+ | | Apply 1 g topically | | 0 | | | Activ | | lidocaine-prilocaine | 3 times daily. | | | | | e | | (EMLA) cream | | | | | | | + + + +---------+------+------+-------+ | clonazePAM | Take 1 mg by mouth | | 0 | | | Activ | | (KLONOPIN) 1 mg | nightly. | | | | | e | | tablet | | | | | | | + + + +---------+------+------+-------+ | prazosin | Take 5 mg by mouth | | 0 | | | Activ | | (MINIPRESS) 5 mg | nightly. | | | | | e | | capsule | | | | | | | + + + +---------+------+------+-------+ | benzonatate | Take 100 mg by mouth | | 0 | | | Activ | | (TESSALON PERLES) | Twice daily as | | | | | e | | 100 mg capsule | needed for Cough. | | | | | | + + + +---------+------+------+-------+ | Liraglutide | Inject under the | | 0 | | | Activ | | (VICTOZA SC) | skin. 3-Delgado 18mg/3ml | | | | | e | | | Injection | | | | | | + + + +---------+------+------+-------+ Active Problems Not on file Family History + + +--------+ + | Medical History | Relation | Name | Comments | + + +--------+ + | No known problems | Daughter | | | + + +--------+ + | No known problems | Daughter | | | + + +--------+ + | Other (see comment) | Maternal | | Fabry disease | | | Aunt | | | + + +--------+ + | Other (see comment) | Maternal | | Fabry disease | | | Grandmoth | | | | | er | | | + + +--------+ + | Other (see comment) | Maternal | | Fabry disease | | | Uncle | | | + + +--------+ + | Other (see comment) | Mother | Jordyn | Fabry disease | | | | Miguel | | + + +--------+ + | Coronary artery | Mother | Jordyn | CABG | | disease | | Miguel | | + + +--------+ + | Heart disease | Mother | Jordyn | cardiac arrest | | | | Miguel | | + + +--------+ + | Other (see comment) | Mother | Jordyn | Fabry's disease | | | | Miguel | | + + +--------+ + | Anxiety disorder | Other | | | + + +--------+ + | Bipolar disorder | Other | | | + + +--------+ + | Breast cancer | Other | | | + + +--------+ + | Cervical cancer | Other | | | + + +--------+ + | Depression | Other | | | + + +--------+ + | Diabetes, NIDDM | Other | | | + + +--------+ + | Elevated lipids | Other | | | + + +--------+ + | Fibromyalgia | Other | | | + + +--------+ + | Heart attack | Other | | | + + +--------+ + | Hypertension | Other | | | + + +--------+ + | Other cancer | Other | | Testicular | + + +--------+ + | Other (see comment) | Son | | Fabry disease | + + +--------+ + | Other (see comment) | Son | | Fabry disease | + + +--------+ + | Other (see comment) | Son | | Fabry's disease | + + +--------+ + | Other (see comment) | Son | | Fabry's disease | + + +--------+ + + +--------+--------+ + | Relation | Name | Status | Comments | + +--------+--------+ + | Daughter | | | | + +--------+--------+ + | Daughter | | | | + +--------+--------+ + | Daughter | | Alive | | + +--------+--------+ + | Daughter | | Alive | | + +--------+--------+ + | Maternal Aunt | | | | + +--------+--------+ + | Maternal Grandmother | | | | + +--------+--------+ + | Maternal Uncle | | | | + +--------+--------+ + | Mother | Jordyn | | | | | Miguel | | | + +--------+--------+ + | Mother | Jordyn | | | | | Miguel | | | + +--------+--------+ + | Mother | Jordyn | | | | | Miguel | | | + +--------+--------+ + | Other | | | | + +--------+--------+ + | Son | | Alive | | + +--------+--------+ + | Son | | Alive | | + +--------+--------+ + | Son | | Alive | | + +--------+--------+ + | Son | | Alive | | + +--------+--------+ + | Son | | | | + +--------+--------+ + | Son | | | | + +--------+--------+ + Social History + +-------+ +--------+------+ | [...] | + + Last Filed Vital Signs Not on file Plan of Treatment + + + + + | Health Maintenance | Due Date | Last Done | Comments | + + + + + | Vaccine: | | | | | Dtap/Tdap/Td (1 - | 0 | | | | Tdap) | | | | + + + + + | Cervical Cancer | | | | | Screening (Pap) | 9 | | | + + + + + | Vaccine: Influenza | | | | | (Season Ended) | 0 | | | + + + + + Results Not on filefrom Last 3 Months Insurance + +--------+ +--------+ +---------+--------+ | Payer | Benefi | Subscriber | Effect | Phone | Address | Type | | | t Plan | ID | ed | | | | | | / | | Dates | | | | | | Group | | | | | | + +--------+ +--------+ +---------+--------+ | MEDICARE | MEDICA | [id number] | 09/15/19 | [phone] | | Medica | | | RE | | 17-Pre | 5 | | re | | | PART A | | sent | | | | | | AND B | | | | | | + +--------+ +--------+ +---------+--------+ | [employer] | MODA | [id number] | | [phone] | | Medica | | MEDICAID HMO | HEALTH | | 012-Pr | 1 | | id | | | MDCD | | esent | | | | | | [place] | | | | | | + +--------+ +--------+ +---------+--------+ + +--------+ +--------+ + + | Guarantor Name | Accoun | Relation to | Date | Phone | Billing Address | | | t Type | Patient | of | | | | | | | | | | + +--------+ +--------+ + + | Jarvis Miguel | Person | Self [birth year] | [address] | | Jenn | kristi/Alan | | 1980 | [phone] | [place] [address] | | | andrew | | | [address] (Home) | | + +--------+ +--------+ + + Advance Directives + + + + + | Type | Date Recorded | Patient | Explanation | | | | 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
--- OUTSIDE RECORDS SUMMARY | ~2020-02-07 | XMS | Encounter Summary ---
Demographics + + + | Address | [address] | | | [place] [address] | + + + | Home Phone | | + + + | Preferred Language | Unknown | + + + | Marital Status | Single | + + + | Nondenominational Affiliation | Unknown | + + + [...] Team Providers + +------+ + | Care Office Lead Name | Role | Phone | + +------+ + PCP | Unavailable | + +------+ + Encounter Details +--------+ + + + + | Date | Type | Department | Care Team | Description | +--------+ + + + + | 04/30/ | Office | [facility] | Consult, [facility] | Progress Note | | 2003 | Visit-Trans | | | | | | cribed | | | | +--------+ + + [...] as of this encounter Progress Notes Interface, Audiovisual Tech In - 04/14/2005 8:10 AM PDTClinic Date: 04/30/2004 Clinic Name [facility] Discipline Metabolics Jarvis is a 24-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 Muhammad. Jarvis has a longstanding family history of Fabry's disease with several close relatives being positive for Fabry's disease. She describes her symptoms as getting worse. She has several symptoms that are associated with her Fabry's disease including headache, dizziness, hypotension, a spot-like rash, nausea, numbness and tingling in her hands, arms and feet, abdominal pain. She has history of fainting spells that are precipitated by hand shaking and syncope, of which she has no memory. She says that these incidences have improved since discontinuing her medications three or four weeks ago. She finds she is very fatigued. She has trouble staying awake. She has a hard time getting up n the morning. She also is very frustrated with medical care at this point. She feels she has been overmedicated and she is very sensitive to medication and the physicians she has seen to this date do not really understand Fabry's well enough to treat it. Past Medical/Surgical History: Diagnosed with Fabry's disease, migraine headaches, poor blood pressure control and she had left shoulder surgery in 2000 for torn bursa and muscles. Current Medications: Reglan, two to three tabs per day, she is unclear of the dose at this time. she also takes three vitamins per day. However, she is not , she just feels that she feels worse if she does not take any vitamins. Allergies: PENICILLIN VK, bee stings and sulfa DRUGS. Social History: She lives at home with daughters and roommates. She is not working at this time, she is on medical leave. She used to work in the [employer]. She is from [place]. She does not drink alcohol, she does not smoke cigarettes, she has not used illegal drugs and she is not on any herbal medications. Family History: The following individuals in her family have been diagnosed with Fabry's disease: her mother, her son, who has been adopted by another family, her maternal aunt, maternal uncle, maternal grandmother, maternal great grandmother and maternal cousin. Her maternal grandmother had breast cancer, her maternal grandfather had prostate cancer and her mom has suffered from a myocardial infarction, which was attributed to her Fabry's disease. Review of Systems: GENERAL: She is fatigued all the time. SKIN: Occasionally she gets the stigmata of Fabry's disease, the angiokeratomas. HEENT: Occasionally she has blurry vision, she feels that her hearing is okay. CARDIOVASCULAR: She feels her heart races with any type of exertion, being slight or moderate. She does not complain of any arrhythmia. RESPIRATORY: She does claim she has increased shortness of breath with most mild activity. GI: Abdominal pain most every day. No constipation, no diarrhea associated with abdominal pain. : No blood in her urine, but she does have nocturia where she has to get up in the middle of the night to go to the bathroom. ENDOCRINOLOGY: She does complain of heat and cold intolerance and excessive weight gain since giving to her son. HEMATOLOGIC: She feels she bruises relatively easily. MUSCULOSKELETAL: She feels she is weak. She has knee and joint swelling and pain, also swollen knuckles. NEUROLOGICAL: Headaches, dizziness, tingling and numbness in hands and arms. PsychIATRIC: She suffers from depression but she is not currently taking any medications because she feels they make her feel worse. Physical Exam: GENERAL: Obese female, in no distress. VITALS: 120 kg. Blood pressure, 116/79. SKIN: There is no sign of angiokeratoma at this time. HEENT: Pupils are equal, round and reactive to light and accommodations. Extraocular movements are intact. Funduscopic exam normal. TMs are clear. Mucous membranes are moist. Pharynx was normal. NECK: No thyromegaly, no lymphadenopathy. CARDIOVASCULAR: Regular rate and rhythm without murmurs, rubs or gallops. Capillary refill is less than 1 second in all extremities. RESPIRATORY: Clear to auscultation bilaterally. ABDOMEN: Soft, nontender, nondistended, normal bowel sounds. No hepatosplenomegaly. MUSCULOSKELETAL: 4/5 muscle strength in all extremities. No evidence of joint swelling at this time. NEUROLOGICAL: Plus 2 DTRs at the knees. Cranial nerves II through XII grossly intact. Negative Romberg. Negative gait ataxia. [id number] normal. Assessment/Plan: 24-year-old female with diagnosis of Fabry's disease with much of the symptomatology associated with Fabry's such as headache, nausea, abdominal pain, fatigue and neuropathic pain. We recommend at this time that Jarvis get an electrocardiogram. We will check a spot urine for creatinine, albumin, protein and beta 2 microglobulin. We will also check a 24-hour urine collection for a beta 2 microglobulin, creatinine, albumin and protein. We recommend enzyme replacement therapy in the form of Fabrazyme and we would like Jarvis to follow-up in six months at the metabolic clinic. We would also like to obtain a complete metabolic panel and a free T4 and TSH. Kevin Muhammad M.D. Visiting Medical Student Fourth Year from [facility] RDS/x10 A [id number] cc: CAROLIN NEVAREZ MD [address] [place] [address] [id number] signed by Interface, Audiovisual Tech In at 5 8:10 AM PDTdocumented in this encounter Plan of Treatment Not on filedocumented as of this encounter Visit Diagnoses Not on filedocumented in this encounter"
--- OUTSIDE RECORDS SUMMARY | ~2020-02-07 | XMS | Encounter Summary ---
Demographics + + + | Address | [address] | | | [place] [address] | + + + | Home Phone [...] Team Providers + +------+ + | Care Home Care Provider Name | Role | Phone | + +------+ + | Lexx Estiven | PCP | | + +------+ + Reason for Visit + + + | Reason | Comments | + + + | Refill Request | | + + + Encounter Details +--------+--------+ + + + | Date | Type | Department | Care Team | Description | +--------+--------+ + + + | 08/28/ | Refill | [facility] | Shaina Barrett | Refill Request | | 2016 | | Floor [address] | | | | | St Mailcode: [facility] | | | | | | [facility] [place], [place] | | | | | | [address] | | | | | | [phone] | | | +--------+--------+ + + + [...]
--- OUTSIDE RECORDS SUMMARY | ~2020-02-07 | XMS | Encounter Summary ---
Demographics + + + | Address | [address] | | | [place] [address] | + + + | Home Phone [...] Author + + + | Author | [facility] | + + + | Organization | [facility] | + + + | Address | Unknown | + + + | Phone | Unavailable | + + + Support + + +---------+ + | Name | Relationship | Address | Phone | + + +---------+ + | John Miguel | ECON | Unknown | | + + +---------+ + Care Team Providers + +------+ + | Care Concrete Layer Name | Role | Phone | + +------+ + | Christina Rain MD | PCP | | + +------+ + Reason for Visit + + + | Reason | Comments | + + + | Medication | ERT available | | management | | + + + Encounter Details +--------+ + + + + | Date | Type | Department | Care Team | Description | +--------+ + + + + | 11/01/ | Telephone | [facility] | Fawad Muhammad, | Medication | | 2010 | | Floor [address] | management (ERT | | | | St Mailcode: [facility] | | available) | | | | [place], [place] | | | | | | [address] | | | | | | [phone] | | | +--------+ + + + [...]
--- OUTSIDE RECORDS SUMMARY | ~2020-02-07 | XMS | Encounter Summary ---
Demographics + + + | Address | [address] | | | [place] [address] | + + + | Home Phone | | + + + | Preferred Language | Unknown | + + + | Marital Status | Single | + + + | Druze Affiliation | Unknown | + + + [...] Providers + +------+ + | Care Senior Science Consultant Name | Role | Phone | + +------+ + | Lexx Estiven | PCP | | + +------+ + Encounter Details +--------+ + + + + | Date | Type | Department | Care Team | Description | +--------+ + + + + | 02/03/ | Documentati | [facility] | Kathleen Canchola, | | | 2017 | on | Center at [facility] [address] | [address] | | | | | [address] | [address] [facility] [place] | | | | | Mailcode: [place] | [address] | | | | | for Health and | [phone] | | | | | [facility] [address] | | | | | | [facility] [place] | | | | | | [address] | | | | | | | [...]
--- OUTSIDE RECORDS SUMMARY | ~2020-02-07 | XMS | Encounter Summary ---
Demographics + + + | Address | [address] | | | [place] [address] | + + + | Home Phone | | + + + | Preferred Language | Unknown | + + + | Marital Status | Single | + + + | Rastafarian Affiliation | Unknown | + + + [...] Team Providers + +------+ + | Care Financial Legal Assistant Name | Role | Phone | + +------+ + | Mikki Barajas MD | PCP | | + +------+ + Encounter Details +--------+ + + + + | Date | Type | Department | Care Team | Description | +--------+ + + + + | 02/25/ | Document-Sc | UNKNOWN DEPARTMENT | Unknown . | | | 2013 | anned | [address] | | | | | | [address] | | | | | | [place], [place] | | | | | | [address] | | | +--------+ + + + [...] + + | ORDERS OTHER | | 02/25/2014 | | Results for this | | | | 12:00 AM | | procedure are in the | | | | PDT | | results section. | + +--------+ + + + documented in this encounter Results ORDERS OTHER (02/25/2014 12:00 AM PDT) + + + | Narrative | Performed At | + + + | | | | | | + + + + + | Procedure Note | + + | Luzmaria, Faculty - 02/25/2014 11:25 AM PDT | + + documented in this encounter Visit Diagnoses Not on filedocumented in this encounter"
--- OUTSIDE RECORDS SUMMARY | ~2020-02-07 | XMS | Encounter Summary ---
Demographics + + + | Address | [address] | | | [place] [address] | + + + | Home Phone | | + + + | Preferred Language | Unknown | + + + | Marital Status | Single | + + + | Restorationism Affiliation | Unknown | + + + [...] Team Providers + +------+ + | Care Bottle Tester Name | Role | Phone | + [...] | +--------+ + + + + | 10/12/ | Telephone | [facility] | Shaina Barrett | | | 2009 | | Floor [address] | | | | | St Mailcode: [facility] | | | | | | [facility] [place], [place] | | | | | | [address] | | | | | | [phone] | | | +--------+ + + + [...]
--- OUTSIDE RECORDS SUMMARY | ~2020-02-07 | XMS | Encounter Summary ---
Demographics + + + | Address | [address] | | | [place] [address] | + + + | Home Phone [...] Team Providers + +------+ + | Care Printed Circuit Board Designer Name | Role | Phone | + +------+ + | Estiven Hallman | PCP | | + +------+ + Encounter Details +--------+ + + + + | Date | Type | Department | Care Team | Description | +--------+ + + + + | 04/22/ | [facility] | Metabolic Genetics | Genny Hagan | lab work | | 2018 | Encounter | at [facility] | B, VEGETABLE II FARMWORKER [address] | | | | | [address] [facility] | [facility] | | | | | Josephine | [place], [place] | | | | | [facility] | [address] | | | | | [address] [place] [address], | [phone] | | | | | [place] [address] | | | | | | [phone] | | | +--------+ + + + [...]
--- OUTSIDE RECORDS SUMMARY | ~2020-02-07 | XMS | Encounter Summary ---
Demographics + + + | Address | [address] | | | [place] [address] | + + + | Home Phone | | + + + | Preferred Language | Unknown | + + + | Marital Status | Single | + + + | Jew Affiliation | Unknown | + + + [...] Team Providers + +------+ + | Care Honey Extractor Name | Role | Phone | + +------+ + PCP | Unavailable | + +------+ + Encounter Details +--------+ + + + + | Date | Type | Department | Care Team | Description | +--------+ + + + + | 04/30/ | [facility] | | Letter, Clinic | Letters | | 2004 | scribed | | | | +--------+ [...] as of this encounter Progress Notes Interface, Paediatrician In - 04/14/2005 8:10 AM PDT [place] [id number] [place] [address] or April 30, 2004 Tera Delarosa M.D. [address] [address] RE: JARVIS ENRIQUE MR #: [id number] Dear Dr. Delarosa: We saw your patient Jarvis Enrique in the Metabolic Clinic at [facility] on April 30, 2004. 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 I saw Jarvis together with Dimple De Los Santos, medical student. We saw and examined Jarvis together. Her findings are accurately documented in her note. Jarvis was also seen by Matt Flynn M.S., genetic counselor. A complete pedigree family history is on her chart. Jarvis was also seen by Lucio Cheng, research carpenter assistant installer for enrollment in the Fabry Database Registry. Mine was primarily a counseling visit. I spent 60 minutes in [id number] contact with Ms. Enrique, more than half the time was spent in counseling. I will not review her history in detail as this is covered in the registry, the family history by Matt Flynn and by a medical student, and the other history is accurate in Dimple De Los Santos's note. Briefly, I met Ms. Enrique for the first time at a Fabry's Disease Family Support Group meeting where I spoke briefly. She has only known she has had Fabry's disease for the last 2 years. Before that, she was also told that she was not affected even though other family members were affected. She was told that based on a lack of corneal abnormalities on the initial eye examination. She is 24 years old and has a lot of signs and symptoms that could be related to Fabry's disease. Specifically, she complains of intermittent tinnitus, dizziness, hypertension, frequent nausea, numbness, tingling, and pain in her hands and arms which is almost on a daily basis, and other problems as documented in Dimple De Los Santos's note. Physical examination: General: She is overweight. HEENT: She is nondysmorphic. Pupils are equal, round, and reactive to light. Extraocular movements are intact. Fundi normal. I did not see retinal tortuosity. I could not see corneal holes. Abdomen: Soft and nontender with no masses and no hepatosplenomegaly. I did think her liver was about 3 to 4 cm below the costal margin. It was difficult to feel the tip of her liver because of obesity and what appeared to be voluntary guarding. Extremities: Full range of motion without obvious deformities. Neurologic: Strength appeared to be 4+/5 in the hip flexors and in all of the muscle groups of the upper extremities tested. Deep tendon reflexes 2+ and symmetric bilaterally. Gait is normal. Heel walking, toe walking, and tandem gait normal. Romberg is negative. Cranial nerves 2 through 12 are grossly intact. Impression: A 24-year-old woman with Fabry's disease who is currently quite symptomatic. She is at risk for renal failure, stroke, cardiomyopathy, and other medical problems that are commonly seen in women with Fabry's disease. This used to be thought of as an X-linked recessive condition in women who were thought not to be at risk of these complications but that is clearly not true. Current texts and journal articles about Fabry's disease make it clear that women are affected. I had a long talk with Ms. Enrique about Fabry's disease. We talked about what it is, its manifestation, complications, and potential treatment with enzyme replacement therapy. We talked about whether she would be a candidate for enzyme replacement therapy. I do think she is an excellent candidate for enzyme replacement therapy, and I recommend that she start on therapy if you agree as soon as possible. It will take some time to complete the paperwork necessary for her to start on therapy. This is a very expensive medication, and the insurance company needs to certify that they will pay for the medication. It is one of the most expensive drugs in the market. She will need infusions every 2 weeks that will take a few hours in the beginning and hopefully, we can get that down to about a 2-hour infusion if she tolerates this well. We talked about whether her daughter might be affected with Fabry's disease and the testing that will need to be done. I have recommended that Ms. Enrique have an echocardiogram. People with Fabry's disease are at risk for cardiomyopathy. It will be nice to have this as a baseline before enzyme replacement therapy is started. In addition, I understand she has had at least 1 brain MRI. She has frequent headaches. It will be helpful for me to see a copy at least of the report of her MRI. I do not necessarily need to see the MRI itself. Finally, I would like to see her in clinic approximately every 6 months to follow up on her Fabry's disease. I will be happy to work with you in coordinating her care for Fabry's disease. This is a multisystem disorder, and Mr. Enrique clearly has a lot of medical problems related to her Fabry's disease. Dr. Delarosa, thank you so much for allowing us to participate in the care of your patient, Jarvis Enrique. Please feel free to call or write an e-mail if you have any questions or wish to discuss her care. Sincerely, Fawad Muhammad M.D. Dental Laboratory Assistant of Pediatrics and Molecular Medical Genetics e-mail:[email or web address] [id number] [email or web address] [id number] [email or web address] [id number] / Tdocumented in this encounter Plan of Treatment Not on filedocumented as of this encounter Visit Diagnoses Not on filedocumented in this encounter"
--- OUTSIDE RECORDS SUMMARY | ~2020-02-07 | XMS | Encounter Summary ---
Demographics + + + | Address | [address] | | | [place] [address] | + + + | Home Phone [...] Author + + + | Author | [facility] | + + + | Organization | [facility] | + + + | Address | Unknown | + + + | Phone | Unavailable | + + + Support + + +---------+ + | Name | Relationship | Address | Phone | + + +---------+ + | John Miguel | ECON | Unknown | | + + +---------+ + Care Team Providers + +------+ + | Care Pattern Drafter Name | Role | Phone | + +------+ + | Mikki Barajas MD | PCP | | + +------+ + Encounter Details +--------+ + + + + | Date | Type | Department | Care Team | Description | +--------+ + + + + | 12/01/ | Telephone | Metabolic Genetics | Deidre Nguyen MD | | | 2020 | | at [facility] | [address] | | | | | [address] | Naty Isaacs [place], | | | | | [place] | [place] [address] | | | | | [facility] | [phone] | | | | | [address] [place] [address], | | | | | | [place] [address] | | | | | | [phone] | | | +--------+ + + + [...]
--- OUTSIDE RECORDS SUMMARY | ~2020-02-07 | XMS | Encounter Summary ---
Demographics + + + | Address | [address] | | | [place] [address] | + + + | Home Phone | | + + + | Preferred Language | Unknown | + + + | Marital Status | Single | + + + | Zoroastrian Affiliation | Unknown | + + + | Race | White | + + + | Ethnic Group | Not or | + + + Author + + + | Author | [facility] | + + + | Organization | [facility] | + + + | Address | Unknown | + + + | Phone | Unavailable | + + + Support + + +---------+ + | Name | Relationship | Address | Phone | + + +---------+ + | John Miguel | ECON | Unknown | | + + +---------+ + Care Team Providers + +------+ + | Care Wellness Ambassador Name | Role | Phone | + +------+ + | Mikki Barajas MD | PCP | | + +------+ + Reason for Visit + + + | Reason | Comments | + + + | Returning Phone Call | | + + + Encounter Details +--------+ + + + + | Date | Type | Department | Care Team | Description | +--------+ + + + + | 07/23/ | Telephone | [facility] at [facility] | Henniker, Alda | Returning Phone Call | | 2019 | | [address] | W, PhD [address] | | | | | Mailcode: [id number] [place], [place] | | | | | [facility] | [address] | | | | | and [place], | [phone] | | | | | Building | | | | | | Floor [place], [place] | | | | | | [address] | | | | | | [phone] | | | +--------+ + + + [...]
--- OUTSIDE RECORDS SUMMARY | ~2020-02-07 | XMS | Encounter Summary ---
Demographics + + + | Address | [address] | | | [place] [address] | + + + | Home Phone [...] Author + + + | Author | [facility] | + + + | Organization | [facility] | + + + | Address | Unknown | + + + | Phone | Unavailable | + + + Support + + +---------+ + | Name | Relationship | Address | Phone | + + +---------+ + | John Miguel | ECON | Unknown | | + + +---------+ + Care Team Providers + +------+ + | Care Hat Cleaner Name | Role | Phone | + +------+ + | Estiven Hallman | PCP | | + +------+ + Reason for Visit + + + | Reason | Comments | + + + | Prior Authorization | Needed for Fabryzyme | | Request - Medication | | + + + Encounter Details +--------+ + + + + | Date | Type | Department | Care Team | Description | +--------+ + + + + | 01/08/ | Telephone | Molecular and | Benny Hernandez MD | Prior Authorization | | 2017 | | Medical Genetics at | [address] [facility] | Request - Medication | | | | [facility] [address] [facility] | [address] | (Needed for | | | | Dr Wick/[id number] | [place], [place] | [employer]) | | | | [facility] | [address] | | | | | [place], [place] | [phone] | | | | | [address] | | | | | | [phone] | | | +--------+ + + + [...]
--- OUTSIDE RECORDS SUMMARY | ~2020-02-07 | XMS | Encounter Summary ---
Demographics + + + | Address | [address] | | | [place] [address] | + + + | Home Phone | | + + + | Preferred Language | Unknown | + + + | Marital Status | Single | + + + | Christianity Affiliation | Unknown | + + + | Race | White | + + + | Ethnic Group | Not or | + + + Author + + + | Author | [facility] | + + + | Organization | [facility] | + + + | Address | Unknown | + + + | Phone | Unavailable | + + + Support + + +---------+ + | Name | Relationship | Address | Phone | + + +---------+ + | John Miguel | ECON | Unknown | | + + +---------+ + Care Team Providers + +------+ + | Care Property Maintenance Supervisor Name | Role | Phone | + +------+ + | Fausto Sinclair | PCP | | + +------+ + Encounter Details +--------+ + + + + | Date | Type | Department | Care Team | Description | +--------+ + + + + | 12/31/ | Telephone | [facility] at [facility] | Deana Jimenez MD | | | 2013 | | [address] | [address] | | | | | St Mailcode: [facility] | Naty Isaacs [place], | | | | | [facility] [place], [place] | [place] [address] | | | | | [address] | [phone] | | | | | [phone] | | | +--------+ + + + [...]
--- OUTSIDE RECORDS SUMMARY | ~2020-02-07 | XMS | Encounter Summary ---
Demographics + + + | Address | [address] | | | [place] [address] | + + + | Home Phone [...] Author + + + | Author | [facility] | + + + | Organization | [facility] | + + + | Address | Unknown | + + + | Phone | Unavailable | + + + Support + + +---------+ + | Name | Relationship | Address | Phone | + + +---------+ + | John Miguel | ECON | Unknown | | + + +---------+ + Care Team Providers + +------+ + | Care Crown Wheel Assembler Name | Role | Phone | + +------+ + | Katie Dominique MD | PCP | | + +------+ + Reason for Visit + + + | Reason | Comments | + + + | Evaluation AND/OR | Possible cholecystectomy | | management - new | | | patient | | + + + Encounter Details +--------+ + + + + | Date | Type | Department | Care Team | Description | +--------+ + + + + | 03/21/ | Telephone | [facility] in [place] | Deana Jimenez MD | Evaluation AND/OR | | 2007 | | [address] | [address] | management - new | | | | [place], [place] | [address] [place], | patient (Possible | | | | [address] | [place] [address] | cholecystectomy) | | | | [phone] | [phone] | | | | | | | [...]
--- OUTSIDE RECORDS SUMMARY | ~2020-02-07 | XMS | Encounter Summary ---
Demographics + + + | Address | [address] | | | [place] [address] | + + + | Home Phone | | + + + | Preferred Language | Unknown | + + + | Marital Status | Single | + + + | Jain Affiliation | Unknown | + + + [...] Team Providers + +------+ + | Care Ship Steward Name | Role | Phone | + +------+ + | Mikki Barajas MD | PCP | | + +------+ + Encounter Details +--------+ + + + + | Date | Type | Department | Care Team | Description | +--------+ + + + + | 04/21/ | Document-Sc | UNKNOWN DEPARTMENT | Unknown . | | | 2016 | anned | [address] | | | | | | [address] | | | | | | [place] | | | | | | [address] | | | +--------+ + + + [...]
--- OUTSIDE RECORDS SUMMARY | ~2020-02-07 | XMS | Encounter Summary ---
Demographics + + + | Address | [address] | | | [place] [address] | + + + | Home Phone | | + + + | Preferred Language | Unknown | + + + | Marital Status | Single | + + + | Shinto Affiliation | Unknown | + + + | Race | White | + + + | Ethnic Group | Not or | + + + Author + + + | Author | [facility] | + + + | Organization | [facility] | + + + | Address | Unknown | + + + | Phone | Unavailable | + + + Support + + +---------+ + | Name | Relationship | Address | Phone | + + +---------+ + | John Miguel | ECON | Unknown | | + + +---------+ + Care Team Providers + +------+ + | Care Polysomnographer Name | Role | Phone | + +------+ + PCP | Unavailable | + +------+ + Encounter Details +--------+ + + + + | Date | Type | Department | Care Team | Description | +--------+ + + + + | 07/01/ | Abstract | [facility] at [facility] 7[facility] | Fawad Muhammad, | | | 2004 | | [address] | | | | | | [address] Mailcode: [facility] | | | | | | [facility] [place], [place] | | | | | | [address] | | | | | | [phone] | | | +--------+ + + + [...]
--- OUTSIDE RECORDS SUMMARY | ~2020-02-07 | XMS | Encounter Summary ---
Demographics + + + | Address | [address] | | | [place] [address] | + + + | Home Phone | | + + + | Preferred Language | Unknown | + + + | Marital Status | Single | + + + | Sikhism Affiliation | Unknown | + + + | Race | White | + + + | Ethnic Group | Not or | + + + Author + + + | Author | [facility] | + + + | Organization | [facility] | + + + | Address | Unknown | + + + | Phone | Unavailable | + + + Support + + +---------+ + | Name | Relationship | Address | Phone | + + +---------+ + | John Miguel | ECON | Unknown | | + + +---------+ + Care Team Providers + +------+ + | Care Design Assistant Name | Role | Phone | + +------+ + | Estiven Hallman | PCP | | + +------+ + Encounter Details +--------+------+ + + + | Date | Type | Department | Care Team | Description | +--------+------+ + + + | 02/03/ | Lab | Laboratory at [facility] | | Morbid obesity, | | 2017 | | [address] | | unspecified obesity | | | | [place], [place] | | type (HCC) | | | | [address] | | | | | | [phone] | | | +--------+------+ + + + [...] | | | | PDT | type ([facility]) | results section. | + [...] | | | | PDT | type ([facility]) | results section. | + +--------+ + + + | PTH, SERUM | Routin | 02/03/2017 | Morbid obesity, | Results for this | | | e | 12:18 PM | unspecified obesity | procedure are in the | | | | PDT | type ([facility]) | results section. | + +--------+ + + + | TSH | Routin | 02/03/2017 | Morbid obesity, | Results for this | | | e | 12:18 PM | unspecified obesity | procedure are in the | | | | PDT | type ([facility]) | results section. | + +--------+ + + + | LIPID SET (TRIG, T | Routin | 02/03/2017 | Morbid obesity, | Results for this | | CHOL, HDL, CALC LDL) | e | 12:18 PM | unspecified obesity | procedure are in the | | | | PDT | type ([facility]) | results section. | + [...] glycated albumin should be considered for monitoring termination clerk | LABORATORY | | glycemic control in [...] | + + + + + | [facility] | [address] | [place] [address] | | | SERVICES, SPECIAL | PARK [...] | + + + + + | [facility] | [address] | [place] [address] | | | SERVICES, CORE | [address] [...] [facility] | [address] | [place] [address] | | | SERVICES, CORE | PARK [...] | + + + + + | [facility] | [address] | [place] [address] | | | SERVICES, CORE | JAMIA [...] [facility] | [address] | [place] [address] | | | SERVICES, CORE | PARK [...] | + + + + + | [facility] | [address] | [place] [address] | | | SERVICES, CORE | JAMIA [...] | | | LABORATORY | | | [place] | | | SERVICES, | | | [...] | + + + + + | [facility] | [address] | [place] [address] | | | SERVICES, CORE | [address] | | | + + + + + documented in this encounter Visit Diagnoses + + | Diagnosis | + + | Morbid obesity, unspecified obesity type (HCC) | + + documented in this encounter"
--- OUTSIDE RECORDS SUMMARY | ~2020-02-07 | XMS | Encounter Summary ---
Demographics + + + | Address | [address] | | | [place] [address] | + + + | Home Phone [...] Team Providers + +------+ + | Care Cork Tile Floor Layer Name | Role | Phone | [...] [id number] | | | | | | [place], [place] | | | | | | [address] | | | | | | [phone] | | | +--------+ + + + [...] + | TOTAL RESULTS | Routin | 07/14/2006 | | Results for this | | FOR,URINE | e | 4:53 PM | | procedure are in the | | | | PST | | results section. | + +--------+ + + + | MICROALBUMIN/CREATIN | Routin | 07/14/2006 | | Results for this | | INE RATIO (RANDOM | e | 4:53 PM | | procedure are in the | | URINE) | | PST | | results section. | + +--------+ + + + | COMPLETE METABOLIC | Routin | 07/14/2006 | | Results for this | | SET | e | 4:53 PM | | procedure are in the | | (NA,K,CL,CO2,BUN,CRE | | PST | | results section. | | AT,GLUC,CA,AST,ALT,B | | | | | | BECCA TOTAL,ALK | | | | | | PHOS,ALB,PROT TOTAL) | | | | | + +--------+ + + + | PROTEIN, URINE | Routin | 07/14/2006 | | Results for this | | | e | 4:53 PM | | procedure are in the | | | | PST | | results section. | + +--------+ + + + documented in this encounter Results TOTAL RESULTS FOR,URINE (07/14/2006 4:53 PM PST) + + + + + [...] + + + | Urine Chemistry Master | [facility] | | | DEPARTMENT OF | | | PATHOLOGY | + + + + + + + + | Performing | Address | City/State/Zipcode | Phone Number | | Organization | | | | + + + + + | [facility] | [address] | [place] [address] | | | PATHOLOGY | [address] | | | + + + + + | [facility] | [address] | [place] [address] | | | PATHOLOGY | [address] | | | + + + + + MICROALBUMIN/CREATININE RATIO (RANDOM URINE) (07/14/2006 4:53 PM PST) + + + + + + | Component | Value | Ref Range | Performed | Pathologist | | | | | At | Signature | + + + + + + | MICROALBUMI | 49 (H)Comment: Test | <21 mg/L | | | | N, | performed by [facility] | | | | | URINE-COUNT INCLUDES THE [facility] | [facility] | | | | | M | Laboratories. | | | | + + + + + + | URINE | 201.1 | mg/dL | | | | CREATININE | | | | | + + + + + + | MICROALBUMI | 24 | <31 mg/g | | | | N/CREAT | | | | | | RATIO | | | | | + + + + + + + + | Specimen | + + | | + + + + + + + | Performing | Address | City/State/Zipcode | Phone Number | | Organization | | | | + + + + + | [facility] | [address] | [place] [address] | | | LABORATORY | | | | + + + + + PROTEIN, URINE (07/14/2006 4:53 PM PST) + +-------+ + + + | Component | Value | Ref Range | Performed | Pathologist | | | | | At | Signature | + +-------+ + + + | PROTEIN | 176 | mg/L | [facility] | | | CONC URINE | | | DEPARTMENT | | | | | | OF | | | | | | PATHOLOGY | | + +-------+ + + + + + | Specimen | + + | | + + + + + | Narrative | Performed At | + + + | Urine Chemistry Master | [facility] | | | DEPARTMENT OF | | | PATHOLOGY | + + + + + + + + | Performing | Address | City/State/Zipcode | Phone Number | | Organization | | | | + + + + + | [facility] | [address] | [place] [address] | | | PATHOLOGY | [address] | | | + + + + + | [facility] | [facility] [address] | [place] [address] | | | PATHOLOGY | [address] | | | + + + + + COMP METABOLIC SET (07/14/2006 4:53 PM PST) + +-------+ + + + | Component | Value | Ref Range | Performed | Pathologist | | | | | At | Signature | + +-------+ + + + | GLUCOSE, | 94 | 65 - 110 mg/dL | [facility] | | | PLASMA | | | DEPARTMENT | | | (LAB) | | | OF | | | | | | PATHOLOGY | | + +-------+ + + + | BUN, PLASMA | 7 | 6 - 20 mg/dL | [facility] | | | (LAB) | | | DEPARTMENT | | | | | | OF | | | | | | PATHOLOGY | | + +-------+ + + + | CREATININE | 0.7 | 0.6 - 1.1 mg/dL | [facility] | | | PLASMA | | | DEPARTMENT | | | (LAB) | | | OF | | | | | | PATHOLOGY | | + +-------+ + + + | TOTAL | 7.1 | 6.1 - 7.9 g/dL | [facility] | | | PROTEIN, | | | DEPARTMENT | | | PLASMA | | | OF | | | (LAB) | | | PATHOLOGY | | + +-------+ + + + | ALBUMIN, | 3.6 | 3.5 - 4.7 g/dL | [facility] | | | PLASMA | | | DEPARTMENT | | | (LAB) | | | OF | | | | | | PATHOLOGY | | + +-------+ + + + | CALCIUM, | 9.1 | 8.5 - 10.5 | [facility] | | | PLASMA | | mg/dL | DEPARTMENT | | | (LAB) | | | OF | | | | | | PATHOLOGY | | + +-------+ + + + | BILIRUBIN | 0.7 | 0.3 - 1.2 mg/dL | [facility] | | | TOTAL | | | DEPARTMENT | | | | | | OF | | | | | | PATHOLOGY | | + +-------+ + + + | ALK PHOS | 88 | 42 - 98 U/L | [facility] | | | | | | DEPARTMENT | | | | | | OF | | | | | | PATHOLOGY | | + +-------+ + + + | AST(SGOT) | 34 | 15 - 41 U/L | [facility] | | | | | | DEPARTMENT | | | | | | OF | | | | | | PATHOLOGY | | + +-------+ + + + | SODIUM, | 140 | 136 - 145 | [facility] | | | PLASMA | | mmol/L | DEPARTMENT | | | (LAB) | | | OF | | | | | | PATHOLOGY | | + +-------+ + + + | POTASSIUM, | 3.7 | 3.5 - 5.1 | [facility] | | | PLASMA | | mmol/L | DEPARTMENT | | | (LAB) | | | OF | | | | | | PATHOLOGY | | + +-------+ + + + | CHLORIDE, | 104 | 98 - 107 mmol/L | [facility] | | | PLASMA | | | DEPARTMENT | | | (LAB) | | | OF | | | | | | PATHOLOGY | | + +-------+ + + + | TOTAL CO2, | 27 | 23 - 29 mmol/L | [facility] | | | PLASMA | | | DEPARTMENT | | | (LAB) | | | OF | | | | | | PATHOLOGY | | + +-------+ + + + | ALT (SGPT) | 37 | 13 - 48 U/L | [facility] | | | | | | DEPARTMENT | | | | | | OF | | | | | | PATHOLOGY | | + +-------+ + + + + + | Specimen | + + | | + + + + + | Narrative | Performed At | + + + | [id number] Estimated GFR > 60 mL/min/1.73 sq m if non- | [facility] | | [id number] Estimated GFR > 60 mL/min/1.73 sq m if GFR | DEPARTMENT OF | | is estimated using the MDRD equation recommended by the National | PATHOLOGY | | Kidney Disease Education Program. Estimated GFR Interpretive | | | Information: <60 mL/min/1.73 sq m Chronic Kidney Disease <15 | | | mL/mon/1.73 sq m Kidney Failure Estimated GFR greater than | | | 60mL/min/1.73 is of limited clinical Value. The MDRD equation is | | | not valid in the following situations: - Patients under 18 years of | | | age - Severe malnutrition or obesity - Vegetarian diet - Rapidly | | | changing kidney function | | + + + + + + + + | Performing | Address | City/State/Zipcode | Phone Number | | Organization | | | | + + + + + | [facility] | [address] | [place] [address] | | | PATHOLOGY | [address] | | | + + + + + | [facility] | [address] | [place] [address] | | | PATHOLOGY | [address] | | | + + + + + documented in this encounter Visit Diagnoses Not on filedocumented in this encounter"
--- OUTSIDE RECORDS SUMMARY | ~2020-02-07 | XMS | Encounter Summary ---
Demographics + + + | Address | [address] | | | [place] [address] | + + + | Home Phone | | + + + | Preferred Language | Unknown | + + + | Marital Status | Single | + + + | Denominational Affiliation | Unknown | + + + | Race | White | + + + | Ethnic Group | Not or | + + + Author + + + | Author | [facility] | + + + | Organization | [facility] | + + + | Address | Unknown | + + + | Phone | Unavailable | + + + Support + + +---------+ + | Name | Relationship | Address | Phone | + + +---------+ + | John Miguel | ECON | Unknown | | + + +---------+ + Care Team Providers + +------+ + | Care Consulting Services Associate Name | Role | Phone | + +------+ + | Christina Rain MD | PCP | | + +------+ + Reason for Visit + + + | Reason | Comments | + + + | Research data | | | collection | | + + + Encounter Details +--------+ + + + + | Date | Type | Department | Care Team | Description | +--------+ + + + + | 01/31/ | Documentati | [facility] | Fawad Muhammad, | Research data | | 2010 | on-ECX | Floor [address] MD | collection | | | | St Mailcode: [facility] | | | | | | [place] | | | | | | [address] | | | | | | [phone] | | | +--------+ + + + [...] + documented as of this encounter Progress Geri Vargas - 01/31/2011 12:48 PM PDTResearch Enrollment Note: [employer] Registry PI: Fawad Muhammad MD IRB Number: [id number] Initials: On January 22, 2011 was approached to be re-consented for the [facility] registry and s ub registry. This registry was discussed at length and informed consent document was review ed with including risk/benefit/cost/procedures/confidentiality/withdrawal Questions were answered by myself, Geri Arredondo and Dr. Muhammad was available to answer questions as well. was agreeable to her continued participation in this registry and also agree to participa ting in the sub registry. signed the general consent form and sub-registry por tion of the consent form as well as the HIPAA form for this registry. She was given copies o f these signed forms. meets all protocol inclusion and exclusion criteria as reviewed by myself and Dr. Muhammad. After re-consent was obtained, JR was given a quality of life and br ief pain questionnaire to complete. Contact information for study staff was provided to this family. Geri Arredondo-Research Coordinator Phone: [phone] Pager: [phone] documented in this encounter Plan of Treatment Not on filedocumented as of this encounter Visit Diagnoses Not on filedocumented in this encounter"
--- OUTSIDE RECORDS SUMMARY | ~2020-02-07 | XMS | Encounter Summary ---
Demographics + + + | Address | [address] | | | [place] [address] | + + + | Home Phone [...] + + + | Author | [facility] | | | and [place] | + + + | Organization | [facility] | | | and [place] | + + + | Address | Unknown | + + + | Phone | Unavailable | + + + Support + + + + + | Name | Relationship | Address | Phone | + + + + + | Jordyn Miguel | ECON | NONE | | | | | [place] [address] | | + + + + + | Jordyn Miguel | ECON | NONE | + | | | | [place] [address] | | + + + + + Care Team Providers + +------+ + | Care Pension Consultant Name | Role | Phone | + +------+ + PCP | Unavailable | + +------+ + Encounter Details +--------+ + + + + | Date | Type | Department | Care Team | Description | +--------+ + + + + | 10/12/ | Hospital | [facility] | | Genetic Counseling | | 2009 | Encounter | [facility]VERSION [facility] [address] | | | | | | [place], [place] | | | | | | [address] | | | | | | [phone] | | | +--------+ + + + [...] filedocumented as of this encounter Visit Diagnoses + + | Diagnosis | + + | Genetic counseling | + + documented in this encounter"
--- OUTSIDE RECORDS SUMMARY | ~2020-02-07 | XMS | Encounter Summary ---
Demographics + + + | Address | [address] | | | [place] [address] | + + + | Home Phone | | + + + | Preferred Language | Unknown | + + + | Marital Status | Single | + + + | Taoist Affiliation | Unknown | + + + [...] Team Providers + +------+ + | Care Direct Of Real Estate Name | Role | Phone | + +------+ + | Estiven Hallman DO | PCP | | + +------+ + Reason for Visit +--------+ + | Reason | Comments | +--------+ + | Other | lab work | +--------+ + Encounter Details +--------+ + + + + | Date | Type | Department | Care Team | Description | +--------+ + + + + | 04/20/ | Telephone | Metabolic Genetics | Deidre Nguyen MD | Other (lab work ) | | 2018 | | at [facility] | [address] [facility] | | | | | [address] | [place]y [place], | | | | | [place] | [place] [address] | | | | | [facility] | [phone] | | | | | [address] [place] [address], | | | | | | [place] [address] | | | | | | [phone] | | | +--------+ + + + [...]
--- OUTSIDE RECORDS SUMMARY | ~2020-02-07 | XMS | Encounter Summary ---
Demographics + + + | Address | [address] | | | [place] [address] | + + + | Home Phone [...] Author + + + | Author | [facility] | + + + | Organization | [facility] | + + + | Address | Unknown | + + + | Phone | Unavailable | + + + Support + + +---------+ + | Name | Relationship | Address | Phone | + + +---------+ + | John Miguel | ECON | Unknown | | + + +---------+ + Care Team Providers + +------+ + | Care Database Security Administrator Name | Role | Phone | + +------+ + | Estiven Hallman DO | PCP | | + +------+ + Encounter Details +--------+ + + + + | Date | Type | Department | Care Team | Description | +--------+ + + + + | 09/17/ | Abstract | [facility] | Other, Faculty | | | 2017 | | Department | [phone] | | +--------+ + + + + [...]
--- OUTSIDE RECORDS SUMMARY | ~2020-02-07 | XMS | Encounter Summary ---
Demographics + + + | Address | [address] | | | [place] [address] | + + + | Home Phone | | + + + | Preferred Language | Unknown | + + + | Marital Status | Single | + + + | Orthodoxy Affiliation | Unknown | + + + | Race | White | + + + | Ethnic Group | Not or | + + + Author + + + | Author | [facility] | + + + | Organization | [facility] | + + + | Address | Unknown | + + + | Phone | Unavailable | + + + Support + + +---------+ + | Name | Relationship | Address | Phone | + + +---------+ + | John Miguel | ECON | Unknown | | + + +---------+ + Care Team Providers + +------+ + | Care Amusement Machine Mechanic Name | Role | Phone | + +------+ + | Estiven Hallman DO | PCP | | + +------+ + Reason for Referral Consultation (Routine) +--------+--------+ + + + + | Status | Reason | Specialty | Diagnoses / | Referred By | Referred To | | | | | Procedures | Contact | Contact | +--------+--------+ + + + + | Closed | | Pain | Diagnoses | Jesika, | Instructor Adjunct Surgical Technician Psych | | | | Management | Morbid | JONAH Villavicencio | [facility] [address] | | | | | obesity, | [address] | | | | | unspecified | [address] | Mailcode: | | | | | obesity type | [place], [place] | [facility] | | | | | ([facility]) | [address] | for Health | | | | | Procedures | Phone: | and Healing, | | | | | CONSULT TO | [phone] | Building 1, | | | | | PAIN | Fax: | 15th Floor | | | | | MANAGEMENT | [phone] | [place], [place] | | | | | [place] | | [address] | | | | | PSYCHIATRIC | | Phone: | | | | | DIAGNOSTIC | | [phone] | | | | | [facility] | | Fax: | | | | | [facility] [place] | | [phone] | | | | | PSYCH TSTNG | | | | | | | PSYCH/PHYS | | | +--------+--------+ + + + + Reason for Visit + + + | Reason | Comments | + + + | New patient | | | consultation | | + + + Consultation (Routine) +--------+ + + + + + | Status | Reason | Specialty | Diagnoses / | Referred By | Referred To | | | | | Procedures | Contact | Contact | +--------+ + + + + + | Closed | BAR: | Surgery | | Non-[facility] | Bar | | | Scheduled | | | Epic Dept | [facility] | | | with HUMAN FACTORS ADVISOR LEAD | | | | [facility] [address] | | | | | | | [address] | | | | | | | Mailcode: | | | | | | | Center for | | | | | | | Health and | | | | | | | Healing, | | | | | | | Building 2 | | | | | | | [place], [place] | | | | | | | [address] | | | | | | | Phone: | | | | | | | [phone] | | | | | | | Fax: | | | | | | | [phone] | +--------+ + + + + + Encounter Details +--------+---------+ + + + | Date | Type | Department | Care Team | Description | +--------+---------+ + + + | 02/03/ | Office | Digestive Health | Kathleen Canchola, | Morbid obesity, | | 2017 | Visit | Center at [facility] [address] | ACNP [address] | unspecified obesity | | | | [address] | [address] [facility] [place] | type (HCC) (Primary | | | | Mailcode: Center | [address] | Dx); DM type 2 | | | | for Health and | | without retinopathy | | | | [facility], [facility] | | ([facility]); Fabry disease | | | | [place], [place] | | ([facility]ERLY [facility]); | | | | [address] | | Gastroesophageal | | | | | | reflux disease | | | | | | without esophagitis; | | | | | | Benign essential | | | | | | HTN; Physical | | | | | | deconditioning; | | | | | | Morbid obesity with | | | | | | BMI of 60.0-69.9, | | | | | | adult ([facility]) | +--------+---------+ + + + Social History [...] + + + | Blood Pressure | 115/62 | 02/03/2017 10:58 AM | | | | | PDT | | + + + + + | Pulse | 72 | 02/03/2017 10:58 AM | | | | | PDT | | + + + + + | Temperature | 36.8 C (98.2 F) | 02/03/2017 10:58 AM | | | | | PDT | | + + + + + | Respiratory Rate | 16 | 02/03/2017 10:58 AM | | | | | PDT | | + + + + + | Oxygen Saturation | 96% | 02/03/2017 10:58 AM | | | | | PDT | | + + + + + | Inhaled Oxygen | - | - | | | Concentration | | | | + + + + + | Weight | 168.2 kg (370 lb | 02/03/2017 10:58 AM | | | | 14.4 oz) | PDT | | + + + + + | Height | 158.8 cm (5' 2.5") | 02/03/2017 10:58 AM | | | | | PDT | | + + + + + | Body Mass Index | 66.76 | 02/03/2017 10:58 AM | | | | | PDT | | + + + + + documented in this encounter Patient Instructions Patient Instructions Kathleen Canchola [facility] - 02/03/2017 11:00 AM PDTPlan: The following has been provided to Jarvis Miguel You can over eat ANY of the surgeries. The surgery is a tool with diet and exercise To help you obtain a healthy weight. + Dietitian consultation: + Physical therapy referral for Bariatric Surgery Prehabilitation., they will assess your m uscle strength and design a exercise program for you. + Weight Management classes: 2 classes are required in addition to your private appointme nt with the surveillance analyst. These classes will be scheduled apporoximately 1 month apart to allow time for you to put the teaching into action. Please call [phone] + Labs needed: lipids, CBC, CMP, TSH, A1C, PTH, Vitamin D25, Ferritin Please go to the 3r d floor and have these labs done. + See Dr. Cintron: for Pap test: Please obtain thru your primary care and we want to see the lab result from the PAP smear. (not the note from your provider) + EKG: Please go to 9th floor today to get this done. + Pre-op Psychological Evaluation: Your referral is at [facility], The Pain Management Office will call you in the next week to schedule. + Cardiology Consult: A cardiology provider needs to evaluate your cardiac function and le t us know if you can proceed with with bariatric surgery. If your referral is at [facility], they will call you in the next week to schedule. 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 Insurance requirements: your insurance requires : 4 months consecutive diet May : Kathleen Adan NP February: Class 1 March surveillance analyst HUMAN FACTORS ADVISOR LEAD or PCP (in that order as options) April: Class 2 Then scheduled with the surgeon Each insurance can have different requirements (even if the name of the insurance company i s the same) Please CHECK with your insurance company to be sure you are Meeting their requirements Blood pressure 115/62, pulse 72, temperature 36.8 C (98.2 F), temperature source Oral, resp. rate 16, height 1.588 m (5' 2.5"), weight 168.2 kg (370 lb 14.4 oz), SpO2 96 %. Body mass index is 66.76 kg/(m^2). + Required weight loss: Every patient has a individual weight loss target. It takes Into consideration your current weight and BMI. Your target most likely will be different Than anyone elses target If your BMI is less than 50 then your weight loss target is : 5% of your current weight today or NA If your BMI is great than 50 then your weight loss target (at a minimum) is 10% of your current weight or 37 pounds to a weight of 333 Some people will need to lose more weight than that, in order for surgery To be safely completed. Depending on how much is lost over your abdomen, as there is a Crawford it To the length of the surgical tools Once the above list is completed and copies have been received by our office, we will submi t for insurance authorization then schedule with the surgeon. Kathleen Adan DNP, JONAH, SPIRITUAL ADVISOR Nurse Practitioner for Bariatric Surgery [facility] | [facility] [address] | [place], [place] | [address] | documented in this encounter Progress Notes Kathleen Canchola ACNP - 02/03/2017 11:00 AM PDTFormatting of this note might be different f rom the original. BARIATRIC INITIAL VISIT Provider: Kathleen Adan DNP, TIFFANIEP, SPIRITUAL ADVISOR Referring Provider: Dr. Estiven Hallman Reason for Requested Consultation: Initial evaluation for bariatric surgery. Jarvis Miguel is interested in sleeve gastrectomy . 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 Currently treated with fabrazyn Every 2 weeks home health comes and accesses her port twice a week at home. Port: to be replaced 02.03.2017. That will be her 3rd site History of Present Illness: She is a morbidly obese, 37 y.o. female with a BMI of Body mas s index is 66.76 kg/(m^2). who has failed prior attempts at sustained dietary/medical weight loss and desires surgica l weight loss in order to "be there for my children and live healthier ". Social: Disabled Single lives with her mother, her children and 2 grand children Her daughter Jimena is with her today. She is 14 has 2 children ages 2 and 7 months 4 children ( by c section) 2 girls and 2 boys. The boys both have Fabry disease (X linked) Never smoked G 12 P: 4 Duration of obesity: 26 years. Onset of obesity at age 11 First diet attempts at age 11 Personally initiated diets: 1990 low carbs lost 10 pounds and regained 1999 " diet pills" lost 50 pounds and regained No date. Change my whole eating lost 50 pounds and regained 30. She has lost 5 pounds in the past 2 weeks. Programmatic diets: none Provider Monitored diet: none Use of Redux or Phen/fen: no Orthodoxy or cultural reason you would refuse blood products? no Comorbidities include: Type 2 diabetes, insulin resistance, intertrigenous skin infections, stress urinary incontinence, GERD (gastroesophageal reflux disease) and hypertension All previous chart notes from PCP reviewed, previous tests and labs reviewed. ALLERGIES: Allergies Allergen Reactions Clarification Needed PEN V K Sulfa (Sulfonamide Antibiotics) Current Outpatient Prescriptions: acetaminophen 325 mg Oral tablet, Take 325 mg by mouth ev haylie four hours as needed. 2 tabs daily for headaches. Indications: HEADACHE DISORDER, Disp : , Rfl: Agalsidase Beta (FABRAZYME) 35 mg intravenous recon soln, Inject 140 mg into the vein (IV) every fourteen days. Indications: Fabry Disease, Disp: 140 mg, Rfl: 26 amitriptyline 25 mg Oral Tablet, Take 75 mg by mouth once daily at bedtime. Pt reports taki ng three tablets once per day, Disp: , Rfl: CARAFATE 100 mg/mL oral suspension, , Disp: , Rfl: 0 cetirizine 10 mg oral tablet, Take 10 mg by mouth once daily., Disp: , Rfl: 1 estradiol 1 mg oral tablet, , Disp: , Rfl: 1 glipiZIDE ER 10 mg oral tablet extended release 24hr, Take 10 mg by mouth once daily., Disp : , Rfl: 1 hydrOXYzine pamoate 50 mg oral capsule, Take 50 mg by mouth once daily., Disp: , Rfl: 0 JANUVIA 100 mg oral tablet, , Disp: , Rfl: 1 L-Methylfolate (DEPLIN) 15 mg Oral Tablet, Take 15 mg by mouth once daily., Disp: , Rfl: LATUDA 120 mg oral tablet, , Disp: , Rfl: 0 LYRICA 75 mg oral capsule, Take 75 mg by mouth once daily., Disp: , Rfl: 0 MELOXICAM (MOBIC ORAL), Take 15 mg by mouth once daily., Disp: , Rfl: metFORMIN SR 500 mg oral tablet extended release 24 hr, , Disp: , Rfl: 3 omeprazole 20 mg oral capsule,delayed release(DR/EC), two times daily., Disp: , Rfl: 1 ondansetron 4 mg oral tablet, 8 mg., Disp: , Rfl: 1 prazosin 2 mg oral capsule, Take 4 mg by mouth once daily at bedtime., Disp: , Rfl: 0 PLUS, CALCIUM CARB, 27 mg iron- 1 mg oral tablet, , Disp: , Rfl: 0 promethazine 25 mg Oral Tablet, Take 25 mg by mouth two times daily., Disp: , Rfl: propranolol 40 mg oral tablet, Take 40 mg by mouth three times daily., Disp: , Rfl: 0 traMADol 50 mg oral tablet, , Disp: , Rfl: 0 venlafaxine 75 mg oral tablet extended release 24hr, , Disp: , Rfl: 0 venlafaxine XR 37.5 mg oral capsule,extended release 24hr, , Disp: , Rfl: 0 VICTOZA 2-DESTINEE 0.6 mg/0.1 mL (18 mg/3 mL) subcutaneous pen injector, Inject 0.6 mg under the skin (SUBC) once daily., Disp: , Rfl: 1 History: Past Medical History: Diagnosis Date Abdominal pain Depression Diabetes (HCC) Dizziness GERD (gastroesophageal reflux disease) HBP (high blood pressure) Headache Kidney disease Lipidoses 07/01/2005 Fabry disease Loss of appetite Nausea Numbness Obsessive compulsive disorder SOB (shortness of breath) Past Surgical History Procedure Laterality Date Cholecystectomy 11/2008 Appendectomy 04/2009 ruptured, hospitalized 21 days section 02/09/2010 emergency Tubal ligation 02/09/2010 Oophorectomy, left 08/2012 Due to cysts Hysterectomy, partial early 09/2012 Salpingo-oophorectomy, right later 09/2012 and left salpingectomy, due to cysts Central line placement 04/2013 Had portacath replaced, now on the right side Social History Social History Marital status: Single Spouse name: N/A Number of children: N/A Years of education: N/A Occupational History Not on file. Social History Main Topics Smoking status: Never Smoker Smokeless tobacco: Never Used Alcohol use No Drug use: No Sexual activity: Not on file Other Topics Concern Not on file Social History Narrative Family History Problem Relation Heart Disease Mother Review of Systems: General: Daily symptoms of fatigue, denies weakness, unintentional weight loss, fevers, chills, night sweats. Eyes/Ears/Nose/Throat: Denies visual changes, sore throat, dental pain, hoarseness, dyspha ericka, oral or tongue lesions. Respiratory: shortness of breath from leg weakness feels that they will give out. Denies c ough or wheezing. Denies nocturnal snoring, daytime drowsiness or morning headaches. Denies history of asthma. No symptoms of sleep apnea. History of TMJ Cardiovascular: Denies exertional chest pain, palpitations, syncope, orthopnea, or paroxys mal nocturnal dyspnea. Denies history of lower extremity edema, hypertension, hyperlipidemia . Denies CHF, NH, ischemic heart disease, DVT/PE, or pulmonary hypertension. States able to climb two flights of stairs. Has jaw pain from TMJ, but no arm/ face or neck pain when walking. She can walk about 1 mil e if it's flat. Neurologic: The patient denies any symptoms of neurological impairment or TIAs; denies dip lopia, dysphasia or unilateral disturbance of motor or sensory function. Denies loss of chase nce or vertigo, persistent headaches, numbness or paresthesias. No history of seizure disord er. 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 Has dif fuse muscle pain, and knees are the worst. And sharp pain to right hip. But can walk a mile if flat. And has to stay cool. Never uses a walker or cane Gastrointestinal: Denies abdominal or flank pain, anorexia, nausea or vomiting, dysphagia, change in bowel habits, black or bloody stools. Denies history of ulcers or hernias. Denie s history of liver disease or jaundice. She has abdominal pain over her lower abdomen. She h as been told it's related to fabry.. She feels food sits and doesn't digest well. Had a UGI about 15 years ago, none since. No recent CT scans or any other evaluation. GERD: takes omeprazole bid, and then over the past month has not had any break thru symptom s Dark stools, History of anemia Genitourinary: urinary incontinence. Denies history of kidney stones. Denies prostate sx . Denies menstrual irregularity, history of endometriosis or abnormal PAP's. Current method of control is: hysterectomy Proteinuria when , and had premature labor. 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 Denies recent rashes, sores, or skin changes. Psychological: Denies anxiety, depression, thoughts of suicide or hallucinations. Anxiety and depression for her. ( gave up oldest son for adoption, he lives [place], met him when he was 13 ( he is 15 now) , ) Gave him up for treatment as he had known fabray and she couldn't support the cost of treat ment. Heme/Lymphatic: History of anemia. The patient denies abnormal bruising, abnormal bleeding or enlarged lymph nodes. Metabolic: Denies symptoms of hypo or hyperthyroidism. history of diabetes x 1 year only. Denies history of gout. OBJECTIVE Blood pressure 115/62, pulse 72, temperature 36.8 C (98.2 F), temperature source Oral, resp. rate 16, height 1.588 m (5' 2.5"), weight 168.2 kg (370 lb 14.4 oz), SpO2 96 %. Physical exam: General: Alert and cooperative. Neuro: Oriented x 3. CN III-XII grossly intact. No focal deficits. HEENT: Oropharynx clear without lesion or exudate. Neck: Neck supple. No adenopathy. Respiratory: Good diaphragmatic excursion. Cardiac: Regular rate and rhythm, no murmur, gallop or bruits. Quite distant Extremities: 1 + lower extremity edema. And never wears real shoes, too hot to wear socks Abdomen: Obese, surgical habitus, soft, nontender, no appreciable masses or hernia. Weight is primarily over the abdomen,but also in her legs Psych: No problems noted. Good family support. Laboratory Data: A1C last was 9.1 Impression: This patient meets and or exceeds NIH criteria for morbid obesity with a BMI of Body mass index is 66.76 kg/(m^2). and comorbidities related to obesity including Type 2 diabetes, insulin resistance, intert rigenous skin infections, stress urinary incontinence, GERD (gastroesophageal reflux disease ) and hypertension, which may be improved with bariatric surgery. Records have been reviewe d from her PCM and several attempts have been made to lose weight over the past years withou t success. She qualifies for medically necessary weight loss surgery to control co-morbidit ies. Jarvismian Miguel has attended the Public Informational Session in which risks and benefits of bariatric surgery were discussed. Discussion of realistic expectations of bariatric surger y was held today. A Bariatric notebook with pre-op, inter-op and post-op guidance and information was provide d for the patient today. 1. DM: last A1C was over 9. She will need to be less than 8 preop 2. Fabry disease, which affects renal function (lab pending), neuromuscular symptoms with w eakness, inability to sweat which has resulted in seizures, marked Fatigue, able to walk on e mile if it's flat and cool. Estrogen exposure: currently on replacement medication. Plan: Check with DATA MIGRATION CONSULTANT regarding her estrodiol at time of surgery, along with PAP? High Risk patient will need to review pre op. May need additional studies. 3. GERD: she sates she has relief of her symptoms with bid PPI (20 mg). However may need ad ditional studies. It is concerning that up until 1 month ago she had break through symptoms . High Risk: She will be presented to the high risk surgical committee once consults are comp leted. Plan: The following has been provided to Jarvis Miguel You can over eat ANY of the surgeries. The surgery is a tool with diet and exercise To help you obtain a healthy weight. + Dietitian consultation: + Physical therapy referral for Bariatric Surgery Prehabilitation., they will assess your m uscle strength and design a exercise program for you. + Weight Management classes: 2 classes are required in addition to your private appointme nt with the surveillance analyst. These classes will be scheduled apporoximately 1 month apart to allow time for you to put the teaching into action. Please call [phone] + Labs needed: lipids, CBC, CMP, TSH, A1C, PTH, Vitamin D25, Ferritin Please go to the 3r d floor and have these labs done. + See Dr. Cintron: for Pap test: Please obtain thru your primary care and we want to see the lab result from the PAP smear. (not the note from your provider) Please talk to him about the estradiol: and what to do about the risk of blood clots arou nd the time of surgery. Please get his advice and have him send us a letter please, or progr ess note + EKG: Please go to 9th floor today to get this done. + Pre-op Psychological Evaluation: Your referral is at [facility], The Pain Management Office will call you in the next week to schedule. + A1C must be less than 8 + Cardiology Consult: A cardiology provider needs to evaluate your cardiac function and le t us know if you can proceed with with bariatric surgery. If your referral is at [facility], they will call you in the next week to schedule. 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 Insurance requirements: your insurance requires : 4 months consecutive diet May : Kathleen Adan NP February: Class 1 March surveillance analyst HUMAN FACTORS ADVISOR LEAD or PCP (in that order as options) April: Class 2 Then scheduled with the surgeon Each insurance can have different requirements (even if the name of the insurance company i s the same) Please CHECK with your insurance company to be sure you are Meeting their requirements Blood pressure 115/62, pulse 72, temperature 36.8 C (98.2 F), temperature source Oral, resp. rate 16, height 1.588 m (5' 2.5"), weight 168.2 kg (370 lb 14.4 oz), SpO2 96 %. Body mass index is 66.76 kg/(m^2). + Required weight loss: Every patient has a individual weight loss target. It takes Into consideration your current weight and BMI. Your target most likely will be different Than anyone elses target If your BMI is less than 50 then your weight loss target is : 5% of your current weight today or NA If your BMI is great than 50 then your weight loss target (at a minimum) is 10% of your current weight or 37 pounds to a weight of 333 Some people will need to lose more weight than that, in order for surgery To be safely completed. Depending on how much is lost over your abdomen, as there is a Crawford it To the length of the surgical tools Once the above list is completed and copies have been received by our office, we will submi t for insurance authorization then schedule with the surgeon. Kathleen Adan DNP, TIFFANIEP, SPIRITUAL ADVISOR Nurse Practitioner for Bariatric Surgery [facility] | [facility] [address] | [place], [place] | [address] | documented in this encounter Plan of Treatment Not on filedocumented as of this encounter Procedures + +--------+ + + + | Procedure Name | Priori | Date/Time | Associated Diagnosis | Comments | | | ty | | | | + +--------+ + + + | 12 LEAD ECG | Routin | 02/03/2017 | Morbid obesity, | Results for this | | | e | 1:57 PM | unspecified obesity | procedure are in the | | | | PDT | type (HCC) | results section. | + +--------+ + + + documented in this encounter Results 12 LEAD ECG (02/03/2017 1:57 PM PDT) + + + + + + | Component | Value | Ref Range | Performed | Pathologist | | | | | At | Signature | + + + + + + | VENTRICULAR | 74 | bpm | [facility] | | | RATE | | | OF | | | | | | CARDIOLOGY | | + + + + + + | ATRIAL RATE | 74 | ms | [facility] | | | | | | OF | | | | | | CARDIOLOGY | | + + + + + + | P-R | 176 | ms | [facility] | | | INTERVAL | | | OF | | | | | | CARDIOLOGY | | + + + + + + | P AXIS | 45 | deg | [facility] | | | | | | OF | | | | | | CARDIOLOGY | | + + + + + + | QRS | 86 | ms | [facility] | | | DURATION | | | OF | | | | | | CARDIOLOGY | | + + + + + + | QT | 384 | ms | [facility] | | | | | | OF | | | | | | CARDIOLOGY | | + + + + + + | QTC-HINA | 426 | ms | [facility] | | | | | | OF | | | | | | CARDIOLOGY | | + + + + + + | R AXIS | 3 | deg | [facility] | | | | | | OF | | | | | | CARDIOLOGY | | + + + + + + | T AXIS | 73 | deg | [facility] | | | | | | OF | | | | | | CARDIOLOGY | | + + + + + + | ECG | SINUS RHYTHM- NORMAL ECG | | [facility] | | | IMPRESSION | - | | OF | | | | | | CARDIOLOGY | | + + + + + + | ECG | Electronically signed | | [facility] | | | IMPRESSION | by: ISAC DAVIS | | OF | | | | 02-03-2017 15:36:38 | | CARDIOLOGY | | + + + + + + + + | Specimen | + + | | + + + + + + + | Performing | Address | City/State/Zipcode | Phone Number | | Organization | | | | + + + + + | [facility] | [address] | [place], [place] | | | CARDIOLOGY | [address] | [address] | | + + + + + HEMOGLOBIN A1C, BLOOD (02/03/2017 12:18 PM PDT) [...] glycated albumin should be considered for monitoring 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 representative | LABORATORY | | glycemic control in [...] [facility] | [address] | [place] [address] | | | SERVICES, SPECIAL | PARK [...] [facility] | [address] | [place] [address] | | | SERVICES, CORE | PARK [...] | + + + + + | [facility] | [address] | [place] [address] | | | SERVICES, MARAL | JAMIA [...] + + + + | [facility] | [address] | [place] [address] | | | SERVICES, CORE | JAMIA [...] and | 50 - 200 ng/mL | [facility] | | | | Female >18 years: [...] | + + + + + | [employer] [facility] | [address] | [place] [address] | | | MARAL BANKS | JAMIA [...] [facility] | [address] | [place] [address] | | | JOCELYN, CORE | [address] | | | [...] | | | LABORATORY | | | [place]UGUESE | | | SERVICES, | | | [...] the MDRD equation recommended by the | [facility] | | National Kidney Disease Education Program. [...] | + + + + + | [facility] | [address] | [place] [address] | | | MARAL BANKS | JAMIA MOREL | | | + + + + + documented in this encounter Visit Diagnoses + + | Diagnosis | + + | Morbid obesity, unspecified obesity type (HCC) - Primary | + + | DM type 2 without retinopathy (HCC) Type II or unspecified type diabetes mellitus | | without mention of complication, not stated as uncontrolled | + + | Fabry disease (HCC) Lipidoses | + + | Gastroesophageal reflux disease without esophagitis Esophageal reflux | + + | Benign essential HTN Essential hypertension, benign | + + | Physical deconditioning Debility, unspecified | + + | Morbid obesity with BMI of 60.0-69.9, adult (HCC) | + + documented in this encounter
--- OUTSIDE RECORDS SUMMARY | ~2020-02-07 | XMS | Encounter Summary ---
Demographics + + + | Address | [address] | | | [place] [address] | + + + | Home Phone [...] Author + + + | Author | [facility] | + + + | Organization | [facility] | + + + | Address | Unknown | + + + | Phone | Unavailable | + + + Support + + +---------+ + | Name | Relationship | Address | Phone | + + +---------+ + | John Miguel | ECON | Unknown | | + + +---------+ + Care Team Providers + +------+ + | Care Tableau Developer Name | Role | Phone | + +------+ + | Christina Rain MD | PCP | | + +------+ + Encounter Details +--------+ + + + + | Date | Type | Department | Care Team | Description | +--------+ + + + + | 08/28/ | Telephone | [facility] | Fawad Muhammad, | | | 2009 | | Floor [address] | | | | | St Mailcode: [facility] | | | | | | [facility] [place], [place] | | | | | | [address] | | | | | | [phone] | | | +--------+ + + + [...]
--- OUTSIDE RECORDS SUMMARY | ~2020-02-07 | XMS | Encounter Summary ---
Demographics + + + | Address | [address] | | | [place] [address] | + + + | Home Phone | | + + + | Preferred Language | Unknown | + + + | Marital Status | Single | + + + | Uatsdin Affiliation | Unknown | + + + | Race | White | + + + | Ethnic Group | Not or | + + + Author + + + | Author | [facility] | + + + | Organization | [facility] | + + + | Address | Unknown | + + + | Phone | Unavailable | + + + Support + + +---------+ + | Name | Relationship | Address | Phone | + + +---------+ + | John Miguel | ECON | Unknown | | + + +---------+ + Care Team Providers + +------+ + | Care Germination Testing Manager Name | Role | Phone | + +------+ + | Katie Dominique MD | PCP | | + +------+ + Encounter Details +--------+ + + + + | Date | Type | Department | Care Team | Description | +--------+ + + + + | 01/11/ | Hospital | LAB HEMOSTASIS AND | | | | 2009 | Encounter | THROMBISIS [address] | | | | | | [address] | | | | | | [place], [place] | | | | | | [address] | | | +--------+ + + + [...] | + +--------+ + + + | LUPUS INHIBITOR | Routin | 01/11/2010 | | Results for this | | EVALUATION WITH | e | 12:00 PM | | procedure are in the | | REFLEXES | | PDT | | results section. | + +--------+ + + + | ANTICARDIOLIPIN | Routin | 01/11/2010 | | Results for this | | IGG/M | e | 12:00 PM | | procedure are in the | | | | PDT | | results section. | + +--------+ + + + | ANTI-B2 GLYCOPROTEIN | Routin | 01/11/2010 | | Results for this | | 1 GM | e | 12:00 PM | | procedure are in the | | | | PDT | | results section. | + +--------+ + + + documented in this encounter Results LUPUS INHIBITOR EVALUATION, PLASMA (01/11/2010 12:00 PM PDT) + + + + + + | Component | Value | Ref Range | Performed | Pathologist | | | | | At | Signature | + + + + + + | LUPUS | Negative for Lupus-like | | [facility] | | | INHIBITOR | inhibitor. | | DEPARTMENT | | | EVAL - | | | OF | | | HEADER | | | PATHOLOGY | | + + + + + + | APTT | 31.5 | 26.0 - 36.0 sec | [facility] | | | PATIENT | | | DEPARTMENT | | | | | | OF | | | | | | PATHOLOGY | | + + + + + + | HEXAGONAL | 1.5 | <8.0 sec | [facility] | | | PL APTT | | | DEPARTMENT | | | | | | OF | | | | | | PATHOLOGY | | + + + + + + | DVVT | 39.1 | 29.2 - 45.4 sec | [facility] | | | | | | DEPARTMENT | | | | | | OF | | | | | | PATHOLOGY | | + + + + + + + + | Specimen | + + | | + + + + + | Narrative | Performed At | + + + | Lupus Inhibitor Panel LAC are evaluated using a multi-test | [facility] | | panel with different phospholipids to detect the LAC. If one of the | DEPARTMENT OF | | screening assays is positive, a confirmatory assay is performed | PATHOLOGY | | (DVV Confirm or Hexagonal APTT). The LAC is present when one or | | | both of the confirmatory assays are positive. Levels of | | | unfractionated heparin >1.0 U/mL may give elevated results. LMWH | | | >0.25 U/mL interfere with the assay. Coumadin may prolong the DVV | | | but does not affect the Hexagonal APTT. | | + + + + + + + + | Performing | Address | City/State/Zipcode | Phone Number | | Organization | | | | + + + + + | [facility] | [address] | [place] [address] | | | PATHOLOGY | [address] | | | + + + + + ANTICARDIOLIPIN GMA, SERUM (01/11/2010 12:00 PM PDT) + +-------+ + + + | Component | Value | Ref Range | Performed | Pathologist | | | | | At | Signature | + +-------+ + + + | ANTICARDIOL | < 9 | <20 PL Units | [facility] | | | IPIN IGG | | | DEPARTMENT | | | | | | OF | | | | | | PATHOLOGY | | + +-------+ + + + | ANTICARDIOL | < 9 | <20 PL Units | [facility] | | | IPIN IGM | | | DEPARTMENT | | | | | | OF | | | | | | PATHOLOGY | | + +-------+ + + + | ANTICARDIOL | < 9 | <15 PL Units | [facility] | | | IPIN IGA | | | DEPARTMENT | | | | | | OF | | | | | | PATHOLOGY | | + +-------+ + + + + + | Specimen | + + | | + + + + + | Narrative | Performed At | + + + | Anticardiolipin GMA Interpretive Data for | [facility] | | Anticardiolipin Antibodies IgG, IgM Negative: | DEPARTMENT OF | | (<9-19) PL Units | PATHOLOGY | | Low Positive: (20-30) | | | PL Units Moderate Positive: | | | (31-80) PL Units High Positive: | | | ( > 80) PL Units | | | Interpretive Data for Anticardiolipin Antibody IgA | | | Negative: (<9-14) PL | | | Units Low Positive: | | | (15-25) PL Units Moderate | | | Positive: (26-80) PL Units | | | High Positive: ( > 80) | | | PL Units | | + + + + + + + + | Performing | Address | City/State/Zipcode | Phone Number | | Organization | | | | + + + + + | [facility] | [address] [facility] | [place] [address] | | | PATHOLOGY | [address] | | | + + + + + ANTI-B2 GLYCOPROTEIN 1 GMA, MISC SPECMN (01/11/2010 12:00 PM PDT) + +--------+ + + + | Component | Value | Ref Range | Performed | Pathologist | | | | | At | Signature | + +--------+ + + + | ANTI-B2GPI | 73 (H) | <20 Units | [facility] | | | IGG | | | DEPARTMENT | | | | | | OF | | | | | | PATHOLOGY | | + +--------+ + + + | ANTI-B2GP1 | < 9 | <20 Units | [facility] | | | IGM | | | DEPARTMENT | | | | | | OF | | | | | | PATHOLOGY | | + +--------+ + + + | ANTI-B2GP1 | 17 | <20 Units | [facility] | | | IGA | | | DEPARTMENT | | | | | | OF | | | | | | PATHOLOGY | | + +--------+ + + + + + | Specimen | + + | | + + + + + | Narrative | Performed At | + + + | Anti-B2 Glycoprotein 1 GMA The following results were | [facility] | | obtained with the [employer] QU[employer] Lite B2GP1 IgGMA CELIA. B2GP1 | DEPARTMENT OF | | IgGMA values obtained with different websphere process server developer's assay methods | PATHOLOGY | | may not be used interchangeably. It is to be expected that some | | | samples can be anticardioplipin positive yet anti-B2GP1 negative. | | | The anti-B2GP1 test is a more specific marker of thrombotic | | | risk. Interpretive Data for Anti-B2 Glycoprotein 1 G,M,A | | | Negative: ( 0-19) | | | Units Low Positive: | | | (21-35) Units Moderate Positive: | | | (36-80) Units High | | | Positive: ( > 80) Units | | + + + + + + + + | Performing | Address | City/State/Zipcode | Phone Number | | Organization | | | | + + + + + | [facility] | [address] | [place] [address] | | | PATHOLOGY | [address] | | | + + + + + documented in this encounter Visit Diagnoses Not on filedocumented in this encounter"
--- OUTSIDE RECORDS SUMMARY | ~2020-02-07 | XMS | Encounter Summary ---
Demographics + + + | Address | [address] | | | [place] [address] | + + + | Home Phone | | + + + | Preferred Language | Unknown | + + + | Marital Status | Single | + + + | Congregation Affiliation | Unknown | + + + [...] Providers + +------+ + | Care Manager Of Housekeeping Name | Role | Phone | + [...] + | Closed | | [facility] | | Lexx | Zzcdr | | | | Metabolic | | DO Estiven | Metabolic | | | | | | [facility] | [address] | | | | | | Hospital | St | | | | | | Internal | Mailcode: | | | | | | Medicin | [facility] | | | | | | [address] | [place], [place] | | | | | | [place] | [address] | | | | | | [place], | Phone: | | | | | | [place] [address] | [phone] | | | | | | Phone: | Fax: | | | | | | [phone] | [phone] | | | | | | Fax: | | | | | | | [phone] | | +--------+--------+ + + + + Encounter Details +--------+---------+ + + + | Date | Type | Department | Care Team | Description | +--------+---------+ + + + | 10/17/ | Office | [facility] | Marcellus Rodriguez MD | Fabry disease in | | 2016 | Visit | Floor [address] | [address] [facility] | heterozygous female | | | | St Mailcode: [facility] | [facility] [facility] [address] | ([facility]) (Primary Dx) | | | | [facility] [place], [place] | [place], [place] | | | | | [address] | [address] | | | | | [phone] | [phone] | | | | | | | | +--------+---------+ + + + Social History [...] + + + | Blood Pressure | 144/84 | 10/17/2015 2:16 PM | | | | | PST | | + + + + + | Pulse | 88 | 10/17/2015 2:16 PM | | | | | PST [...] + + + + | Weight | 176.8 kg (389 lb | 10/17/2015 2:16 PM | | | | 12.4 oz) | PST | | + + + + + | Height | - | - | | + + + + + | Body Mass Index | 67.37 | 11/24/2012 1:06 PM | | | | | PDT | | + + + + + documented in this encounter Progress Notes Marcellus Rodriguez MD - 10/17/2015 8:33 PM PST Jarvis is a 35 y.o. Woman with Fabry disease. She has been on ERT (Fabryzyme) for several ye ars. In late 2013 her dose was doubled from 70 mg/infusion to 140 mg, which represented 1 mg /kg at that time. She tolerates the infusions well without any hint of allergic reaction. When asked whether the increased dose improved her symptoms, she stated that it helped "jaymie ewhat". She still doesn't have "normal energy" and still has pins and needles pains in her f eet and lower extremities. On the other hand, the skin lesions she used to have on the botto m of her feet have disappeared. She has regular blood tests and 3 months ago sent labs of to [facility]. We do not know the re sults, but they were apparently normal. She also has had a normal urine analysis in the past 3 months. She has no particular concerns regarding her own health at this point. Review of systems: Current Outpatient Prescriptions on File Prior to [...] 26 amitriptyline 25 mg Oral Tablet Take 25 mg by mouth once daily at bedtime. L-Methylfolate (DEPLIN) 15 mg Oral Tablet Take 15 mg by mouth once daily. MELOXICAM (MOBIC ORAL) Take by mouth. omeprazole (PRILOSEC) 40 mg Oral capsule,delayed release(DR/EC) Take 40 mg by mouth thr ee times daily. ondansetron 8 mg Oral tablet Take 8 mg by mouth. promethazine 25 mg Oral Tablet Take 25 mg by mouth two times daily. No current facility-administered medications on file prior to visit. Diet: Normal diet. Neurological: No seizures, no muscle cramps, no head-aches. Respiratory :no dyspnea, cough. GI: No diarrhea or vomiting. Normal stool consistency. : Normal, regul ar menses. No dysuria, normal frequency of urination. Normal urine color. Skin: No hair loss , no itching, no rashes. No increased bruising. Musculoskeletal: Complains about pain in her feet. Normal strength, no cramping. Vision: normal vision. Hearing: no impairment.Habits: D oes not smoke; does not have heavy alcohol use. Sleep: no disturbance. Energy level/ability to work:low. Physical exam: Wt 176.8 kg (389 lb 12.4 oz), BP 144/84, Pulse 88, BMI 67.37 kg/(m^2). Skin: clear. No angiokeratomas visible Hair: normal consistency. No abnormal creases. 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 She continues to have pain and wanted so me suggestions regarding alternative pain meds. I suggested Neurontin (gabapentin). It also may help with her anxiety. Plan: 1) No labs, as they have recently been done and were normal per the patients report. 2) Recommend gabapentin for the pain. 3) Continue ERT at the current dose, I.e. 140 mg per infusion, despite her increase in weig ht. 4) RTC in one year. Marcellus Rodriguez MD [facility] AT [address]LO[address] [place] [address] Mailcode: [place] [address] documented in this enc ounter Plan of Treatment Not on filedocumented as of this encounter Procedures + +--------+ + + + | Procedure Name | Priori | Date/Time | Associated Diagnosis | Comments | | | ty | | | | + +--------+ + + + | ORDERS OTHER | | 10/17/2015 | | Results for this | | | | 12:00 AM | | procedure are in the | | | | PST | | results section. | + +--------+ + + + | ORDERS OTHER | | 10/17/2015 | | Results for this | | | | 12:00 AM | | procedure are in the | | | | PST | | results section. | + +--------+ + + + | ORDERS OTHER | | 10/17/2015 | | Results for this | | | | 12:00 AM | | procedure are in the | | | | PST | | results section. | + +--------+ + + + | ORDERS OTHER | | 10/17/2015 | | Results for this | | | | 12:00 AM | | procedure are in the | | | | PST | | results section. 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
--- OUTSIDE RECORDS SUMMARY | ~2020-02-07 | XMS | Encounter Summary ---
Demographics + + + | Address | [address] | | | [place] [address] | + + + | Home Phone | | + + + | Preferred Language | Unknown | + + + | Marital Status | Single | + + + | Mu-Ism Affiliation | Unknown | + + + | Race | White | + + + | Ethnic Group | Not or | + + + Author + + + | Author | [facility] | + + + | Organization | [facility] | + + + | Address | Unknown | + + + | Phone | Unavailable | + + + Support + + +---------+ + | Name | Relationship | Address | Phone | + + +---------+ + | John Miguel | ECON | Unknown | | + + +---------+ + Care Team Providers + +------+ + | Care Catalog Librarian Name | Role | Phone | + +------+ + | Christina Rain MD | PCP | | + +------+ + Encounter Details +--------+ + + + + | Date | Type | Department | Care Team | Description | +--------+ + + + + | 04/09/ | Telephone | [facility] | [address]aw[address] Muhammad, | | | 2010 | | Floor [address] | | | | | St Mailcode: [facility] | | | | | | [facility] [place], [place] | | | | | | [address] | | | | | | [phone] | | | +--------+ + + + [...]
--- OUTSIDE RECORDS SUMMARY | ~2020-02-07 | XMS | Encounter Summary ---
Demographics + + + | Address | [address] | | | [place] [address] | + + + | Home Phone [...] Team Providers + +------+ + | Care Copying Machine Mechanic Name | Role | Phone | + +------+ + | Estiven Hallman DO | PCP | | + +------+ + Reason for Visit + + + | Reason | Comments | + + + | Prior Authorization | Fabrazyme infusion | | Request | | + + + | Prior Authorization | Approved 09-15-15----01-14-16 | | Request | | + + + Encounter Details +--------+ + + + + | Date | Type | Department | Care Team | Description | +--------+ + + + + | 09/27/ | Telephone | [facility] at [facility] | Shaina Barrett | Prior Authorization | | 2015 | | Floor [address] | [address] [address] | Request (Fabrazyme | | | | Mailcode: [facility] | | infusion); Prior | | | | [facility] [place], [place] | | Authorization | | | | [id number] | | Request (Approved | | | | [phone] | | 09-15-15----01-14-16) | +--------+ + + + + Social [...]
--- OUTSIDE RECORDS SUMMARY | ~2020-02-07 | XMS | Encounter Summary ---
Demographics + + + | Address | [address] | | | [place] [address] | + + + | Home Phone | | + + + | Preferred Language | Unknown | + + + | Marital Status | Single | + + + | Sabianism Affiliation | Unknown | + + + | Race | White | + + + | Ethnic Group | Not or | + + + Author + + + | Author | [facility] | + + + | Organization | [facility] | + + + | Address | Unknown | + + + | Phone | Unavailable | + + + Support + + +---------+ + | Name | Relationship | Address | Phone | + + +---------+ + | John Miguel | ECON | Unknown | | + + +---------+ + Care Team Providers + +------+ + | Care Hydraulic Lift Driver Name | Role | Phone | + +------+ + | Christina Rain MD | PCP | | + +------+ + Encounter Details +--------+ + + + + | Date | Type | Department | Care Team | Description | +--------+ + + + + | 04/09/ | Telephone | [facility] at [facility] | [address]aw[address] Muhammad, | | | 2010 | | Floor [address] | | | | | St Mailcode: [facility] | | | | | | [facility] [place], [place] | | | | | | [address] | | | | | | [phone] | | | +--------+ + + + [...]
--- OUTSIDE RECORDS SUMMARY | ~2020-02-07 | XMS | Encounter Summary ---
Demographics + + + | Address | [address] | | | [place] [address] | + + + | Home Phone [...] Author + + + | Author | [facility] | + + + | Organization | [facility] | + + + | Address | Unknown | + + + | Phone | Unavailable | + + + Support + + +---------+ + | Name | Relationship | Address | Phone | + + +---------+ + | John Miguel | ECON | Unknown | | + + +---------+ + Care Team Providers + +------+ + | Care Park Warden Name | Role | Phone | + +------+ + | Fausto Sinclair | PCP | | + +------+ + Reason for Visit + + + | Reason | Comments | + + + | Follow-up in | Fabry disease | | outpatient clinic | | + + + Office Visit - E/M Services (Routine) +--------+--------+ + + + + | Status | Reason | Specialty | Diagnoses / | Referred By | Referred To | | | | | Procedures | Contact | Contact | +--------+--------+ + + + + | Closed | | [facility] | Procedures | [facility] | [facility] | | | | Metabolic | 07/06/13 | Epic Dept | Metabolic | | | | | [place] | | [address] | | | | | | | St | | | | | | | Mailcode: | | | | | | | [facility] | | | | | | | [place], [place] | | | | | | | [address] | | | | | | | Phone: | | | | | | | [phone] | | | | | | | Fax: | | | | | | | [phone] | +--------+--------+ + + + + Encounter Details +--------+---------+ + + + | Date | Type | Department | Care Team | Description | +--------+---------+ + + + | 07/06/ | Office | [facility] | Deana Jimenez MD | Fabry disease (HCC) | | 2012 | Visit | Floor [address] | [address] | (Primary Dx) | | | | St Mailcode: [facility] | [facility] [place], | | | | | [facility] [place], [place] | [place] [address] | | | | | [address] | [phone] | | | | | [phone] | | | +--------+---------+ + + + [...] + + + | Blood Pressure | 119/66 | 07/06/2013 12:50 PM | | | | | PDT | | + + + + + | Pulse | 70 | 07/06/2013 12:50 PM | | | | | PDT [...] + + + + | Weight | 149.8 kg (330 lb 4 | 07/06/2013 12:50 PM | | | | oz) | PDT | | + + + + + | Height | - | - | | + + + + + | Body Mass Index | 57.08 | 11/24/2012 1:06 PM | | | | | PDT | | + + + + + documented in this encounter Progress Notes Deana Jimenez MD - 07/19/2013 9:52 AM PST Metabolic Progress Note Chief Complaint Patient presents with Follow-up in outpatient clinic Fabry disease Jarvis Miguel 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 She is currently receiving Fabrazyme intravenous infusions, 70 mg every other week. She was without enzyme replacement therapy for some time but has been receiving consistent infusion s again since this past summer. She is not having any complications of her infusions. No fev er, muscle cramps, or rashes. She predominantly has issues with recurrent abdominal symptoms including pain, nausea, and vomiting secondary to Fabry disease. These had worsened dramatically during the time that brayden baron was not on enzyme replacement therapy. Since being back on enzyme replacement, the symptom s have improved but have not been completely eliminated. She also has had bouts of flushing of her skin which she associates with Fabry disease. This has improved on enzyme replacement . She also has some baseline symptoms of numbness and tingling of her hands and feet; again these have improved since being on consistent enzyme replacement. Otherwise she has no new medical problems. She has a lot of difficulty with insomnia for th is symptom. Current Medication List Name Sig ACETAMINOPHEN 325 MG TABLET Take 325 mg by mouth every four hours as needed. 2 tabs daily f or headaches. Indications: HEADACHE DISORDER AGALSIDASE BETA 35 MG IV SOLUTION Inject 70 mg into the vein (IV). Indications: Fabry Disea se ALPRAZOLAM 1 MG TABLET Take 1 mg by mouth two times daily. AMITRIPTYLINE 25 MG TABLET Take 25 mg by mouth once daily at bedtime. BUPROPION HCL SR 150 MG TABLET,SUSTAINED-RELEASE Take 150 mg by mouth three times daily. LEVOMEFOLATE CALCIUM 15 MG TABLET Take 15 mg by mouth once daily. LISINOPRIL 5 MG TABLET Take 5 mg by mouth two times daily. LORAZEPAM 1 MG TABLET Take 1 mg by mouth every four hours as needed. MOBIC ORAL Take by mouth. OMEPRAZOLE 40 MG CAPSULE,DELAYED RELEASE Take 40 mg by mouth three times daily. ONDANSETRON HCL 8 MG TABLET Take 8 mg by mouth. OXYCODONE 5 MG TABLET Take 5 mg by mouth every six hours as needed. For Fabry pain episodes . 2-3 weekly as needed. Indications: Neuropathic Pain PRAZOSIN 1 MG CAPSULE Take 1 mg by mouth once daily. PROMETHAZINE 25 MG TABLET Take 25 mg by mouth two times daily. TRAZODONE 100 MG TABLET Take 100 mg by mouth once daily at bedtime. ZIPRASIDONE 80 MG CAPSULE Take 80 mg by mouth two times daily with meals. Allergies Allergen Reactions Clarification Needed PEN V K Sulfa (Sulfonamide Antibiotics) Review of systems: General: No changes in weight. She does have issues with insomnia as mentioned. Head and neck: No vision or hearing concerns. No chewing or swallowing problems. Respiratory: No breathing problems. Cardiovascular: No chest pain. No problems with peripheral circulation. No stroke symptoms. Gastrointestinal: Recurrent nausea. Occasional vomiting. No diarrhea or constipation. Genitourinary: Menstrual periods are regular. No urinary tract difficulties. Musculoskeletal: Some chronic muscular pain. Skin: Recurrent flushing when she has flares of nausea. Neurologic: Baseline mild paresthesias of hands and feet. No other focal abnormalities. No seizures. Physical examination: Filed Vitals 07/06/2013 12:55 PM Weight: 149.8 kg (330 lb 4 oz) BP: 119/66 Pulse: 70 BMI: 57.08 kg/(m^2) Alert, happy, cooperative woman Head and neck exam: Normocephalic, atraumatic. Ears normal. Eyes - PERRLA, EOMI. Conjuctivae and corneas clear. Normal fundi. Nose normal. Mouth and throat normal. Neck - FROM. No masses Lungs clear. Heart - regular rate and rhythm without murmur. Abdomen is soft, nontender and without hepatosplenomegaly. Extremities - normal. Back - symmetric. Skin clear except for scattered rare angiofibromas. Neurologic exam: Cranial nerves II-XII are intact. Muscle bulk, strength and tone are normal. DTRs are 2+ bilaterally at the biceps and patellar tendons. Normal finger to nose and Rhomberg tests. Normal gait. Laboratory data: Laboratory data from April 2013: Normal CBC and basic metabolic panel. Serum creatinine 0 .85. Plasma GL-3 = 4.0. Assessment: 33-year-old female with Fabry disease. She has recurrent abdominal symptoms as well as pare sthesias which are not uncommon in women with February. Her renal function appears okay at t his time. She has no evidence of any severe cardiovascular impairment. She continues on enzy me replacement therapy after a significant period of being off treatment. She is feeling muc h better and her symptoms are much less frequent since restarting enzyme replacement. Recommendations: 1. Continue enzyme replacement therapy at its current dose. 2. Repeat basic metabolic panel and plasma GL-3 level in 6 months. 3. In one year, she should have a CBC, comprehensive metabolic panel, fasting lipids, plasm a GL-3 level, and a 24-hour urine creatinine clearance measured and thereafter she should re turn to metabolic clinic for followup. Deana Jimenez MD Videographer of Molecular and Medical Genetics documented in this enco unter Plan of Treatment Not on filedocumented as of this encounter Procedures + +--------+ + + + | Procedure Name | Priori | Date/Time | Associated Diagnosis | Comments | | | ty | | | | + +--------+ + + + | ORDERS OTHER | | 06/25/2013 | | Results for this | | | | 12:00 AM | | procedure are in the | | | | PDT | | results section. | + +--------+ + + + documented in this encounter Results ORDERS OTHER (06/25/2013 12:00 AM PDT) + + + | Narrative | Performed At | + + + | | | | | | + + + + + | Procedure Note | + + | Jamil Dutta - 09/02/2013 10:44 AM PST | + + documented in this encounter Visit Diagnoses + + | Diagnosis | + + | Fabry disease (HCC) - Primary Lipidoses | + + documented in this encounter"
--- OUTSIDE RECORDS SUMMARY | ~2020-02-07 | XMS | Encounter Summary ---
Demographics + + + | Address | [address] | | | [place] [address] | + + + | Home Phone [...] + + + | Author | [facility] | + + + | Organization | [facility] | + + + | Address | Unknown | + + + | Phone | Unavailable | + + + Support + + +---------+ + | Name | Relationship | Address | Phone | + + +---------+ + | John Miguel | ECON | Unknown | | + + +---------+ + Care Team Providers + +------+ + | Care Friend Of The Court Name | Role | Phone | + +------+ + | Estiven Hallman DO | PCP | | + +------+ + Reason for Visit + + + | Reason | Comments | + + + | Medication | PA expiring in Nov | | management | | + + + Encounter Details +--------+ + + + + | Date | Type | Department | Care Team | Description | +--------+ + + + + | 05/13/ | Telephone | [facility] | Shaina Barrett | Medication | | 2016 | | Floor [address] | management ([place] | | | | St Mailcode: [facility] | | expiring in Jul) | | | | [place], [place] | | | | | | [address] | | | | | | [phone] | | | +--------+ + + + [...]
--- OUTSIDE RECORDS SUMMARY | ~2020-02-07 | XMS | Encounter Summary ---
Demographics + + + | Address | [address] | | | [place] [address] | + + + | Home Phone [...] + + | Author | [facility] | + + + | Organization | [facility] | + + + | Address | Unknown | + + + | Phone | Unavailable | + + + Support + + +---------+ + | Name | Relationship | Address | Phone | + + +---------+ + | John Miguel | ECON | Unknown | | + + +---------+ + Care Team Providers + +------+ + | Care Document Control Specialist Name | Role | Phone | + +------+ + | Christina Rain MD | PCP | | + +------+ + Encounter Details +--------+------+ + + + | Date | Type | Department | Care Team | Description | +--------+------+ + + + | 01/22/ | Lab | Lab Center at | | Fabry disease (HCC) | | 2010 | | [place] | | | | | | [facility] | | | | | | [address] | | | | | | [place] | | | | | | [facility] | | | | | | 7th Floor [place], | | | | | | [place] [address] | | | | | | [phone] | | | +--------+------+ + + + [...] + | TOTAL RESULTS | Routin | 01/22/2011 | | Results for this | | FOR,URINE | e | 2:48 PM | | procedure are in the | | | | PDT | | results section. | + +--------+ + + + | MICROALBUMIN/CREATIN | Routin | 01/22/2011 | Fabry disease | Results for this | | INE RATIO (RANDOM | e | 2:48 PM | ([facility]) | procedure are in the | | URINE) | | PDT | | results section. | + +--------+ + + + | UA, DIPSTICK ONLY | Routin | 01/22/2011 | | Results for this | | | e | 2:48 PM | | procedure are in the | | | | PDT | | results section. | + +--------+ + + + | PROTEIN, URINE | Routin | 01/22/2011 | Fabry disease | Results for this | | | e | 2:48 PM | (HCC) | procedure are in the | | | | PDT | | results section. | + +--------+ + + + | COMPLETE METABOLIC | Routin | 01/22/2011 | Fabry disease | Results for this | | SET | e | 2:43 PM | (HCC) | procedure are in the | | (NA,K,CL,CO2,BUN,CRE | | PDT | | results section. | | AT,GLUC,CA,AST,ALT,B | | | | | | BECCA TOTAL,ALK | | | | | | PHOS,ALB,PROT TOTAL) | | | | | + +--------+ + + + | LIPID SET (TRIG, T | Routin | 01/22/2011 | Fabry disease | Results for this | | CHOL, HDL, CALC LDL) | e | 2:43 PM | (HCC) | procedure are in the | | | | PDT | | results section. | + +--------+ + + + documented in this encounter Results UACOBY ONLY (01/22/2011 2:48 PM PDT) + + + + + [...] + + + + | APPEARANCE | Hazy | | [facility] | | | | | | DEPARTMENT | | | | | | OF | | | | | | PATHOLOGY | | + + + + + + | GLUCOSE(UR) | Negative | mg/dL | [facility] | | | | | | DEPARTMENT | | | | | | OF | | | | | | PATHOLOGY | | + + + + + + | BILIRUBIN | Negative | | [facility] | | | | | | DEPARTMENT | | | | | | OF | | | | | | PATHOLOGY | | + + + + + + | KETONES | Negative | mg/dL | [facility] | | | | | | DEPARTMENT | | | | | | OF | | | | | | PATHOLOGY | | + + + + + + | SPECIFIC | >=1.030 (A) | 1.005 - 1.030 | [facility] | | | GRAVITY | | | DEPARTMENT | | | | | | OF | | | | | | PATHOLOGY | | + + + + + + | BLOOD | Negative | | [facility] | | | | | | DEPARTMENT | | | | | | OF | | | | | | PATHOLOGY | | + + + + + + | PH(UR) | 5.5 | 5.0 - 8.0 | [facility] | | | | | | DEPARTMENT | | | | | | OF | | | | | | PATHOLOGY | | + + + + + + | PROTEIN(LAB | Negative | mg/dL | [facility] | | | ) | | | DEPARTMENT | | | | | | OF | | | | | | PATHOLOGY | | + + + + + + | UROBILINOGE | 0.2 | 0 - 0.2 RHONA | [facility] | | | N | | UNITS | DEPARTMENT | | | | | [...] | | | ESTERASE | | | DEPARTMENT | | | [...] + + + + + | [facility] DEPARTMENT OF | [address] | [place] [address] | | | PATHOLOGY | [address] | | | + + + + + TOTAL RESULTS FOR,URINE (01/22/2011 2:48 PM PDT) + + + + + [...] DEPARTMENT OF | [address] | [place] [address] | | | PATHOLOGY | [address] | | | + + + + + MICROALBUMIN/CREATININE RATIO (RANDOM URINE) (01/22/2011 2:48 PM PDT) + +--------+ + + + | Component | Value | Ref Range | Performed | Pathologist | | | | | At | Signature | + +--------+ + + + | MICROALBUMI | 71 (H) | <21 mg/L | [facility] | | | N, | | | REGIONAL | | | URINE-[facility] | | | LABORATORY | | | M | | | | | + +--------+ + + + | URINE | 206.5 | mg/dL | [facility] | | | CREATININE | | | REGIONAL | | | | | | LABORATORY | | + +--------+ + + + | MICROALBUMI | 34 (H) | <31 mg/g | [facility] | | | N/CREAT | | | REGIONAL | | | RATIO | | | LABORATORY | | + +--------+ + + + + + | Specimen | + + | Urine - Urine | + + + + + | Narrative | Performed At | + + + | [facility] | [facility] | | [address] [place], [place] | REGIONAL | | [address] | LABORATORY | + + + + + + + + | Performing | Address | City/State/Zipcode | Phone Number | | Organization | | | | + + + + + | [facility] | [address] | [place] [address] | | | LABORATORY | | | | + + + + + PROTEIN, URINE (01/22/2011 2:48 PM PDT) + +-------+ + + + | Component | Value | Ref Range | Performed | Pathologist | | | | | At | Signature | + +-------+ + + + | PROTEIN | 220 | mg/L | [facility] | | | CONC URINE | | | DEPARTMENT | | | | | | OF | | | | | | PATHOLOGY | | + +-------+ + + + + + | Specimen | + + | Urine - Urine | + + + + + + + | Performing | Address | City/State/Zipcode | Phone Number | | Organization | | | | + + + + + | [facility] | [address] | [place] [address] | | | PATHOLOGY | [address] | | | + + + + + COMPLETE METABOLIC SET (NA,K,CL,CO2,BUN,CREAT,GLUC,CA,AST,ALT,BILI TOTAL,ALK PHOS,ALB,PROT TOTAL) (01/22/2011 2:43 PM PDT) + + + + + + | Component | Value | Ref Range | Performed | Pathologist | | | | | At | Signature | + + + + + + | GLUCOSE, | 75 | 60 - 99 mg/dL | [facility] | | | PLASMA | | | DEPARTMENT | | | (LAB) | | | OF | | | | | | PATHOLOGY | | + + + + + + | BUN, PLASMA | 8 | 6 - 20 mg/dL | [facility] | | | (LAB) | | | DEPARTMENT | | | | | | OF | | | | | | PATHOLOGY | | + + + + + + | CREATININE | 0.57 (L) | 0.60 - 1.10 | [facility] | | | PLASMA | | mg/dL | DEPARTMENT | | | (LAB) | | | OF | | | | | | PATHOLOGY | | + + + + + + | TOTAL | 7.0 | 6.1 - 7.9 g/dL | [facility] | | | PROTEIN, | | | DEPARTMENT | | | PLASMA | | | OF | | | (LAB) | | | PATHOLOGY | | + + + + + + | ALBUMIN, | 3.7 | 3.5 - 4.7 g/dL | [facility] | | | PLASMA | | | DEPARTMENT | | | (LAB) | | | OF | | | | | | PATHOLOGY | | + + + + + + | CALCIUM, | 8.8 | 8.6 - 10.2 | [facility] | | | PLASMA | | mg/dL | DEPARTMENT | | | (LAB) | | | OF | | | | | | PATHOLOGY | | + + + + + + | BILIRUBIN | 0.4 | 0.3 - 1.2 mg/dL | [facility] | | | TOTAL | | | DEPARTMENT | | | | | | OF | | | | | | PATHOLOGY | | + + + + + + | ALK PHOS | 94 | 42 - 98 U/L | [facility] | | | | | | DEPARTMENT | | | | | | OF | | | | | | PATHOLOGY | | + + + + + + | AST(SGOT) | 18 | 15 - 41 U/L | [facility] | | | | | | DEPARTMENT | | | | | | OF | | | | | | PATHOLOGY | | + + + + + + | SODIUM, | 136 | 134 - 143 | [facility] | | | PLASMA | | mmol/L | DEPARTMENT | | | (LAB) | | | OF | | | | | | PATHOLOGY | | + + + + + + | POTASSIUM, | 3.8 | 3.4 - 5.0 | [facility] | | | PLASMA | | mmol/L | DEPARTMENT | | | (LAB) | | | OF | | | | | | PATHOLOGY | | + + + + + + | CHLORIDE, | 107 | 97 - 108 mmol/L | [facility] | | | PLASMA | | | DEPARTMENT | | | (LAB) | | | OF | | | | | | PATHOLOGY | | + + + + + + | TOTAL CO2, | 23Comment: New Total | 22 - 29 mmol/L | [facility] | | | PLASMA | CO2 reference range | | DEPARTMENT | | | (LAB) | effective 08/07/10. | | OF | | | | | | PATHOLOGY | | + + + + + + | ALT (SGPT) | 18 | 13 - 48 U/L | [facility] | | | | | | DEPARTMENT | | | | | | OF | | | | | | PATHOLOGY | | + + + + + + | EGFR | > 60 | >60 mL/min | [facility] | | | - | | | DEPARTMENT | | | [facility] | | | OF | | | | | | PATHOLOGY | | + + + + + + | EGFR NON | > 60Comment: GFR is | >60 mL/min | [facility] | | | -TYRONE | estimated using the MDRD | | DEPARTMENT | | | RICAN | equation recommended by | | OF | | | | theNational Kidney | | PATHOLOGY | | | | Disease Education | | | | | | Program. Estimated GFR | | | | | | Interpretive | | | | | | Information: <60 | | | | | | mL/min/1.73 sq m | | | | | | Chronic Kidney Disease | | | | | | <15 mL/min/1.73 sq m | | | | | | Kidney Failure | | | | | | Estimated GFR greater | | | | | | than 60mL/min/1.73 is of | | | | | | limited clinical Value. | | | | | | The MDRD equation is | | | | | | not valid in the | | | | | | following situations: - | | | | | | Patients under 18 years | | | | | | of age - Severe | | | | | | malnutrition or obesity | | | | | | - Vegetarian diet - | | | | | | Rapidly changing kidney | | | | | | function | | | | + + + + + + | ANION GAP | 6 | 4 - 11 mmol/L | [facility] | | | | | | DEPARTMENT | | | | | | OF | | | | | | PATHOLOGY | | + + + + + + | ANION | 6 | 4 - 11 mmol/L | [facility] | | | GAP(ALB | | | DEPARTMENT | | | CORRECTED) | | | OF | | | | | | PATHOLOGY | | + + + + + + + + | Specimen | + + | Blood - Blood | + + + + + + + | Performing | Address | City/State/Zipcode | Phone Number | | Organization | | | | + + + + + | [facility] DEPARTMENT OF | [address] | [place] [address] | | | PATHOLOGY | [address] | | | + + + + + LIPID SET (TRIG, T CHOL, HDL, CALC LDL) (01/22/2011 2:43 PM PDT) + + + + + + | Component | Value | Ref Range | Performed | Pathologist | | | | | At | Signature | + + + + + + | CHOLESTEROL | 156Comment: | <200 mg/dL | [facility] | | | (LAB) | Cholesterol Reference | | DEPARTMENT | | | | Range: | | OF | | | | Desirable: <200 | | PATHOLOGY | | | | Borderline | | | | | | High: 200 - 239 | | | | | | | | | | | | High: >=240 | | | | | | LDL Cholesterol | | | | | | Reference Range: | | | | | | | | | | | | Optimal: <100 | | | | | | Near Optimal: | | | | | | 100 - 129 | | | | | | Borderline High: | | | | | | 130 - 159 | | | | | | High: | | | | | | 160 - 189 | | | | | | Very High: | | | | | | >=190 | | | | + + + + + + | TRIGLYCERID | 80Comment: | <150 mg/dL | [facility] | | | ES | Triglyceride Reference | | DEPARTMENT | | | | Range: | | OF | | | | Normal: <150 | | PATHOLOGY | | | | Borderline | | | | | | High: 150 - 199 | | | | | | | | | | | | High: 200 - 499 | | | | | | | | | | | | Very High: >=500 | | | | + + + + + + | HDL | 48Comment: HDL | >40 mg/dL | [facility] | | | CHOLESTEROL | Reference Range: | | DEPARTMENT | | | | High | | OF | | | | Risk: <40 | | PATHOLOGY | | | | Desirable: | | | | | | >=60 | | | | + + + + + + | LDL | 92 | <100 mg/dL | [facility] | | | CHOLESTEROL | | | DEPARTMENT | | | , | | | OF | | | CALCULATED | | | PATHOLOGY | | + + + + + + | VLDL | 16 | <31 mg/dL | [facility] | | | CHOLESTEROL | | | DEPARTMENT | | | , | | | OF | | | CALCULATED | | | PATHOLOGY | | + + + + + + | NON-HDL | 108Comment: non-HDL | <130 mg/dL | [facility] | | | CHOLESTEROL | Cholesterol Reference | | DEPARTMENT | | | | Range: | | OF | | | | Optimal: <130 | | PATHOLOGY | | | | Near | | | | | | Optimal: 130-159 | | | | | | Borderline | | | | | | High: 160-189 | | | | | | | | | | | | High: 190-209 | | | | | | Very | | | | | | High: >=210 | | | | + + + + + + + + | Specimen | + + | Blood - Blood | + + + + + + + | Performing | Address | City/State/Zipcode | Phone Number | | Organization | | | | + + + + + | [facility] | [address] | [place] [address] | | | PATHOLOGY | [address] | | | + + + + + documented in this encounter Visit Diagnoses + + | Diagnosis | + + | Fabry disease (HCC) Lipidoses | + + documented in this encounter"
--- OUTSIDE RECORDS SUMMARY | ~2020-02-07 | XMS | Encounter Summary ---
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 is a tool with diet and exercise to help you obtain a healthy weight. + My Chart Sign up for [employer] so that we can communicate easily back and forth Once the above list is completed and copies have been received by our office, we will submi t for insurance authorization then schedule with the surgeon. Potential Contraindications to Bariatric Surgery Age over 69 BMI over 60 Oxygen dependence Immobility wheelchair or bed bound Cardiac issues such as ischemic heart disease as indicated on cardiac stress test or cardia c catheterization; severe or uncompensated heart failure which may be indicated by a decreas ed ejection fraction. Pulmonary issues such as untreated sleep apnea, obesity hypoventilation syndrome, severe CO PD or asthma. Liver disease such as cirrhosis, esophageal varices, or portal hypertension. Severe, untreated renal disease. Rheumatologic and other diseases requiring immune suppressant medications. Untreated or active cancer. Untreated psychological disability. If you have any of the above conditions, you may not be a candidate for bariatric surgery. Our program will perform a thorough evaluation prior to making such a determination. This evaluation may involve testing or consultations. We will make every effort to notify patien ts who are not candidates for surgery as early in the process as possible, but it is importa nt to realize that the surgeon may make that determination later in the process. Clearance for surgery by your PCP or other providers does not guarantee that the [facility] Bariatric Surger y program will deem you a surgical candidate. I have spent 60 min with this pt face to face. Over 50% of the visit was counseling on the above listed content. ? I have also spent > 31 min prior to this visit performing chart review of the patients prim evy care notes, labs, imaging, and previous clinic visits to other departments. ASHANTI Carrera, MPH Bariatric Surgery Nurse Practitioner [facility] | [address] | [place], [place] | [address] | documented in this encounter Plan of Treatment Not on filedocumented as of this encounter Procedures + +--------+ + + + | Procedure Name | Priori | Date/Time | Associated Diagnosis | Comments | | | ty | | | | + +--------+ + + + | CBC (HEMOGRAM) ONLY | Routin | 01/12/2019 | Morbid obesity [...] + | COMPLETE METABOLIC | Routin | 01/12/2019 | Morbid obesity | Results for this | | SET | e | 10:52 AM | with BMI of | procedure are in the | | (NA,K,CL,CO2,BUN,CRE | | PDT | 50.0-59.9, adult | results section. | | AT,GLUC,CA,AST,ALT,B | | | (HCC) Fabry disease | | | BECCA TOTAL,ALK | | | (HCC) Benign | | | PHOS,ALB,PROT TOTAL) | | | essential HTN | | [...] + +--------+ + + + | CBC ONLY | Routin | 01/12/2019 | Morbid obesity [...] + | HEMOGLOBIN A1C, | Routin | 01/12/2019 | Diabetes mellitus, | Results for this | | BLOOD | e | 10:52 AM | type II, insulin | procedure are in the | | | | PDT | dependent (HCC) | results section. | + +--------+ [...] + documented in this encounter Results CBC (HEMOGRAM) ONLY (01/12/2019 10:52 AM PDT) + +-------+ + + + | Component | Value | Ref Range | Performed | Pathologist | | | | | At | Signature | + +-------+ + + + | WHITE CELL | 6.08 | 3.50 - 10.80 | [facility] | | | COUNT | | K/cu mm | LABORATORY | | | | | | SERVICES, | | | | | | [facility] | | | | | | [facility] | | + +-------+ + + + | RED CELL | 4.70 | 4.00 - 5.20 | [facility] | | | COUNT | | M/cu mm | LABORATORY | | | | | | SERVICES, | | | | | | [facility] + | | | | | | [facility] | | + +-------+ + + + | HEMOGLOBIN | 13.3 | 12.0 - 16.0 | [facility] | | | | | g/dL | LABORATORY | | | | | | SERVICES, | | | | | | [facility] + | | | | | | [facility]AL[facility] | | + +-------+ + + + | HEMATOCRIT | 40.9 | 36.0 - 46.0 % | [facility] | | | | | | LABORATORY | | | | | | SERVICES, | | | | | | [facility] + | | | | | | [facility]ALING | | + +-------+ + + + | MCV | 87.0 | 80.0 - 100.0 fL | [facility] | | | | | | LABORATORY | | | | | | SERVICES, | | | | | | [facility] + | | | | | | [facility] | | + +-------+ + + + | MCHC | 32.5 | 32.0 - 36.0 | [facility] | | | | | g/dL | LABORATORY | | | | | | SERVICES, | | | | | | [facility] + | | | | | | [facility] | | + +-------+ + + + | RDW SD | 42.0 | 35.1 - 46.3 fL | [facility] | | | | | | LABORATORY | | | | | | SERVICES, | | | | | | [facility] + | | | | | | [facility] | | + +-------+ + + + | PLATELET | 282 | 150 - 400 K/cu | [facility] | | | COUNT | | mm | LABORATORY | | | | | | SERVICES, | | | | | | [facility] + | | | | | | [facility] | | + +-------+ + + + | MPV | 10.2 | 9.7 - 12.3 fL | [facility] | | | | | | LABORATORY | | | | | | SERVICES, | | | | | | [facility] + | | | | | | [facility] | | + +-------+ + + + | NRBC% | 0.0 | 0.0 - 0.3 % | [facility] | | | | | | LABORATORY | | | | | | SERVICES, | | | | | | [facility] + | | | | | | [facility]AL[facility] | | + +-------+ + + + | NRBC# | 0.00 | 0.00 - 0.02 | [facility] | | | | | K/cu mm | LABORATORY | | | | | | SERVICES, | | | | | | [facility] + | | | | | | [facility]AL[facility] | | + +-------+ + + + + + | Specimen | + + | Blood - Blood | | (substance) | + + + + + + + | Performing | Address | City/State/Zipcode | Phone Number | | Organization | | | | + + + + + | [facility] | [address] | [place] [address] | | | SERVICES, [facility] | | | | [facility] + [facility]ALING | | | | + + + + + HEMOGLOBIN A1C, BLOOD (01/12/2019 10:52 AM PDT) + + + + + + | Component | Value | Ref Range | Performed | Pathologist | | | | | At | Signature | + + + + + + | HEMOGLOBIN | 10.1 (H)Comment: Hgb A1C | <5.7 % | [...] + + + + + + | ESTIMATED | 243Comment: The | mg/dL | [facility] | | | AVERAGE | estimated Average | | LABORATORY | | | GLUCOSE | Glucose (eAG) number is | | SERVICES, | | | | calculated from the | | SPECIAL IMM | | | | result of the A1c test. | | + COAG | | | | The eAG shows what the | | | | | | average blood glucose | | | | | | was over the previous 2 | | | | | | to 3 months. | | | | + + + + + + + + | Specimen | + + | Blood - Blood | | (substance) | + + + + + | Narrative | Performed At | + + + | Alternate forms of testing such as fructosamine should be | [facility] | | considered for monitoring exterminator termite glycemic control in patients with: | LABORATORY | | Increased red cell turnover, certain hemoglobinopathies (e.g., HbS, | SERVICES, | | HbE, HbC and thalassemia syndromes), anemias, blood loss, chronic | SPECIAL IMM + | | liver disease and hemochromatosis (artefactually low HbA1c); iron | COAG | | deficiency anemia (artefactually high HbA1c due to enhanced glycation | | | of hemoglobin). | | + + + + + + + + | Performing | Address | City/State/Zipcode | Phone Number | | Organization | | | | + + + + + | [facility] | [address] | [place] [address] | | | SERVICES, SPECIAL | [address] | | | | IMM + COAG | | | | + + + + + DRUG SCREEN,URINE;W/CONFIRM (01/12/2019 10:52 AM PDT) + [...] | + + + + + | [facility] | [address] | [place] [address] | | | SERVICES, CORE | [address] [...] | | | | | determined by [facility] | | | | | | Laboratories. See | | | | | | Compliance Statement B: | | | | | | Social B[employer].com/CSPerformed | | | | | | by E-D[employer] Yourself,[address] | | | | | | Tila Mcbride [facility] | | | | | | [address] | | | | | | [phone].SourceNinjalab. | | | | | | Last [...] [facility] | [address] | [place], [place] | | | [facility] | | [address] | | + + + + + [...] | + + + + + | [facility] | [address] | [place] [address] | | | MARAL BANKS | JAMIA [...] | + + + + + | [facility] | [address] [facility] | [place] [address] | | | SERVICES, CORE | JAMIA [...] | + + + + + | [facility] | [address] | [place] [address] | | | SERVICES, CORE | [address] | | | + + + + + VITAMIN B-12 01/12/2019 10:52 AM PDT) + +-------+ + + [...] [facility] | [address] | [place] [address] | | | JOCELYN, MARAL | [address] | | | + [...] | | | | | determined by [facility] | | | | | | Laboratories. See | | | | | | Compliance Statement B: | | | | | | Snapstream/CSPerformed | | | | | | by [employer]self,[address] | | | | | | Tila Mcbride [facility] [place] | | | | | | [address] | | | | | | [phone].SourceNinjalab. | | | | | | Last [...] [facility] | [address] | [place], [place] | | | [facility] | | [address] | | + + + + + [...] | + + + + + | [facility] | [address] | [place] [address] | | | [facility] | [address] | | | + [...] B: | | | | | | Snapstream/CSPerformed | | | | | | by E-Divers[employer] Yourself,[address] | | | | | | [facility] | | | | | | [address] | | | | | | [phone].Social Bicycles. | | | | | | AppbistroLast MD, | | | | | | Lab. Director | | | | + + + + + + + + | Specimen | + + | Blood - Blood | | (substance) | + + + + + + + | Performing | Address | City/State/Zipcode | Phone Number | | Organization | | | | + + + + + | [facility] | [address] | [place], [place] | | | [facility] | | [address] | | + + + + + [...] | + + + + + | [facility] | [address] | [place] [address] | | | SERVICES, CORE | JAMIA [...] [facility] | [address] | [place] [address] | | | SERVICES, SPECIAL | [address] [...] | + + + + + | [facility] | [address] | [place] [address] | | | SERVICES, CORE | [address] | | | + + + + + COMPLETE METABOLIC SET (NA,K,CL,CO2,BUN,CREAT,GLUC,CA,AST,ALT,BILI TOTAL,ALK PHOS,ALB,PROT TOTAL) (01/12/2019 10:52 AM PDT) + +---------+ + + + | Component | Value | Ref Range | Performed | Pathologist | | | | | At | Signature | + +---------+ + + + | GLUCOSE, | 141 (H) | 70 - 99 mg/dL | [facility] | | | PLASMA | | | LABORATORY | | | (LAB) | | | SERVICES, | | | | | | [facility] | [facility] + | | | | | | HEALING | | + +---------+ + + + | BUN, PLASMA | 7 | 6 - 20 mg/dL | [facility] | | | (LAB) | | | LABORATORY | | | | | | SERVICES, | | | | | | [facility] | | | [facility] + | | | | | | HEALING | | + +---------+ + + + | CREATININE | 0.76 | 0.60 - 1.10 | [facility] | | | PLASMA | | mg/dL | LABORATORY | | | (LAB) | | | SERVICES, | | | | | | [facility] | | | | [facility] + | | | | | | HEALING | | + +---------+ + + + | EGFR | >60 | >60 mL/min | [facility] | | | - | | | LABORATORY | | | [place] | | | SERVICES, | | | | | | [facility] | | | [facility] + | | | | | | HEALING | | + +---------+ + + + | EGFR NON | >60 | >60 mL/min | [facility] | | | -TYRONE | | | LABORATORY | | | RICAN | | | SERVICES, | | | | | | [facility] | | | [facility] + | | | | | | HEALING | | + +---------+ + + + | SODIUM, | 139 | 136 - 145 | [facility] | | | PLASMA | | mmol/L | LABORATORY | | | (LAB) | | | SERVICES, | | | | | | [facility] | | | [facility] + | | | | | | HEALING | | + +---------+ + + + | POTASSIUM, | 4.0 | 3.4 - 5.0 | [facility] | | | PLASMA | | mmol/L | LABORATORY | | | (LAB) | | | SERVICES, | | | | | | [facility] | | | | [facility] + | | | | | | HEALING | | + +---------+ + + + | CHLORIDE, | 102 | 97 - 108 mmol/L | [facility] | | | PLASMA | | | LABORATORY | | | (LAB) | | | SERVICES, | | | | | | [facility] | | | [facility] + | | | | | | HEALING | | + +---------+ + + + | TOTAL CO2, | 29 | 21 - 32 mmol/L | [facility] | | | PLASMA | | | LABORATORY | | | (LAB) | | | SERVICES, | | | | | | [facility] | | | | [facility] + | | | | | | HEALING | | + +---------+ + + + | CALCIUM, | 8.6 | 8.6 - 10.2 | [facility] | | | PLASMA | | mg/dL | LABORATORY | | | (LAB) | | | SERVICES, | | | | | | [facility] | | [facility] | | [facility] + | | | | | | HEALING | | + +---------+ + + + | CALCIUM(ALB | 9.2 | 8.6 - 10.2 | [facility] | | | CORRECTED) | | mg/dL | LABORATORY | | | | | | SERVICES, | | | | | | [facility] | | | [facility] + | | | | | | HEALING | | + +---------+ + + + | BILIRUBIN | 0.3 | 0.3 - 1.2 mg/dL | [facility] | | | TOTAL | | | LABORATORY | | | | | | SERVICES, | | | | | | [facility] | | | [facility] + | | | | | | HEALING | | + +---------+ + + + | TOTAL | 7.8 | 6.4 - 8.2 g/dL | [facility] | | | PROTEIN, | | | LABORATORY | | | PLASMA | | | SERVICES, | | | (LAB) | | | [facility] | | | | [facility] + | | | | | | HEALING | | + +---------+ + + + | ALBUMIN, | 3.3 (L) | 3.5 - 4.7 g/dL | [facility] | | | PLASMA | | | LABORATORY | | | (LAB) | | | SERVICES, | | | | | | [facility] | | [facility] | [facility] + | | | | | | HEALING | | + +---------+ + + + | ALK PHOS | 142 (H) | 42 - 98 U/L | [facility] | | | | | | LABORATORY | | | | | | SERVICES, | | | | | | [facility] | | [facility] + | | | | | | HEALING | | + +---------+ + + + | AST(SGOT) | 34 | <=41 U/L | [facility] | | | | | | LABORATORY | | | | | | SERVICES, | | | | | | [facility] | | | | [facility] + | | | | | | HEALING | | + +---------+ + + + | ALT (SGPT) | 54 | <=60 U/L | [facility] | | | | | | LABORATORY | | | | | | SERVICES, | | | | | | [facility] | | | | [facility] + | | | | | | HEALING | | + +---------+ + + + | ANION GAP | 8 | 4 - 11 mmol/L | [facility] | | | | | | LABORATORY | | | | | | SERVICES, | | | | | | [facility] | | | | [facility] + | | | | | | HEALING | | + +---------+ + + + | ANION | 9 | 4 - 11 mmol/L | [facility] | | | GAP(ALB | | | LABORATORY | | | CORRECTED) | | | SERVICES, | | | | | | [facility] | | | | | [facility] + | | | | | | HEALING | | + +---------+ + + + | POTASSIUM | No Hemo | | [facility] | | | CMNT | | | LABORATORY | | | | | | SERVICES, | | | | | | [facility] | | | | | | [facility] + | | | | | | HEALING | | + +---------+ + + + | BILI T CMNT | No Hemo | | [facility] | | | | | | LABORATORY | | | | | | SERVICES, | | | | | | [facility] | | | | | | [facility] + | | | | | | HEALING | | + +---------+ + + + | AST CMNT | No Hemo | | [facility] | | | | | | LABORATORY | | | | | | SERVICES, | | | | | | [facility] | | | | | | [facility] + | | | | | | HEALING | | + +---------+ + + + + + | Specimen | + + | Blood - Blood | | (substance) | + + + + + | Narrative | Performed At | + + + | GFR is estimated using the MDRD equation recommended by the | [facility] | | National Kidney Disease Education Program. Estimated GFR | LABORATORY | | Interpretive Information: <60 mL/min/1.73 sq m | SERVICES, | | Chronic Kidney Disease <15 mL/min/1.73 sq m | [facility] | | Kidney Failure Estimated GFR greater than 60 mL/min/1.73 sq m is of | HEALTH + | | limited clinical value. The MDRD equation is not valid in the | HEALING | | following situations: - Patients under 18 years of age - Severe | | | malnutrition or obesity - Vegetarian diet - Rapidly changing kidney | | | function - Amputees, paraplegics, or other muscle-wasting diseses | | + + + + + + + + | Performing | Address | City/State/Zipcode | Phone Number | | Organization | | | | + + + + + | [facility] | [address] | [place] [address] | | | SERVICES, [facility] | | | | | [facility] + HEALING | | | | + + + + + documented in this encounter Visit Diagnoses + + | Diagnosis | + + | Morbid obesity with BMI of 50.0-59.9, adult (HCC) - Primary | + + | Fabry disease (HCC) Lipidoses | + + | Gastroesophageal reflux disease without esophagitis Esophageal reflux | + + | Benign essential HTN Essential hypertension, benign | + + | Low ferritin Other nonspecific findings on examination of blood | + + | Diabetes mellitus, type II, insulin dependent (HCC) Type II or unspecified type | | diabetes mellitus without mention of complication, not stated as uncontrolled | + + documented in this encounter
--- OUTSIDE RECORDS SUMMARY | ~2020-02-07 | XMS | Encounter Summary ---
Demographics + + + | Address | [address] | | | [place] [address] | + + + | Home Phone [...] Team Providers + +------+ + | Care Box Icer Name | Role | Phone | + +------+ + | Estiven Hallman DO | PCP | | + +------+ + Reason for Visit + + + | Reason | Comments | + + + | Care Coordination | co-signed orders for fabrazyme sent to Dr. Andersen's office for | | | her signature. I let staff know to expect them today. | + + + Encounter Details +--------+ + + + + | Date | Type | Department | Care Team | Description | +--------+ + + + + | 12/30/ | Documentati | Metabolic Genetics | Genny Hagan | Care Coordination | | 2019 | on | at [facility] | B, FOREST AND CONSERVATION WORKER [address] [facility] | (co-signed orders | | | | [address] | [facility] | for fabrazyme sent | | | | Josephine | [place], [place] | to Dr. Anders[facility]'s | | | | [facility] | [address] | office for her | | | | [address] Floor [place], | [phone] | signature. I let | | | | [place] [address] | | staff know to expect | | | | [phone] | | them today.) | +--------+ + + + + Social [...]
--- OUTSIDE RECORDS SUMMARY | ~2020-02-07 | XMS | Encounter Summary ---
Demographics + + + | Address | [address] | | | [place] [address] | + + + | Home Phone [...] Team Providers + +------+ + | Care Alcohol And Drug Counselor Name | Role | Phone | + +------+ + | Lexx Estiven | PCP | | + +------+ + Encounter Details +--------+ + + + + | Date | Type | Department | Care Team | Description | +--------+ + + + + | 09/17/ | Document-Sc | UNKNOWN DEPARTMENT | Other, Faculty | | | 2017 | anned | [address] | [phone] | | | | | [address] | | | | | | [place], [place] | | | | | | [address] | | | +--------+ + + + [...]
--- OUTSIDE RECORDS SUMMARY | ~2020-02-07 | XMS | Encounter Summary ---
Demographics + + + | Address | [address] | | | [place] [address] | + + + | Home Phone [...] + + + | Author | [facility] | + + + | Organization | [facility] | + + + | Address | Unknown | + + + | Phone | Unavailable | + + + Support + + +---------+ + | Name | Relationship | Address | Phone | + + +---------+ + | John Miguel | ECON | Unknown | | + + +---------+ + Care Team Providers + +------+ + | Care Automatic Buffer Name | Role | Phone | + [...] | | | | | | | [place], [place] | | | | | | | [address] | | | | | | | Phone: | | | | | | | [phone] | | | | | | | Fax: | | | | | | | [phone] | +--------+--------+ + + + + Encounter Details +--------+---------+ + + + | Date | Type | Department | Care Team | Description | +--------+---------+ + + + | 07/06/ | Office | [facility] | Deana Jimenez MD | Fabry disease (HCC) | | 2012 | Visit | Floor [address] | [address] | (Primary Dx) | | | | St Mailcode: [facility] | Naty Isaacs [place], | | | | | [facility] [place], [place] | [place] [address] | | | | | [address] | [phone] | | | | | [phone] | | | +--------+---------+ + + + [...] metabolic clinic for followup. Deana Jimenez MD [employer] [employer] [facility] documented in [...]
--- OUTSIDE RECORDS SUMMARY | ~2020-02-07 | XMS | Encounter Summary ---
Demographics + + + | Address | [address] | | | [place] [address] | + + + | Home Phone | | + + + | Preferred Language | Unknown | + + + | Marital Status | Single | + + + | Catholic Affiliation | Unknown | + + [...] Team Providers + +------+ + | Care Mathematician Research Name | Role | Phone | + +------+ + | Lexx Estiven | PCP | | + +------+ + Reason for Visit + + + | Reason | Comments | + + + | Prior Authorization | Approved for ERT: [id number] until 08/15/16 | | Request | | + + + Encounter Details +--------+ + + + + | Date | Type | Department | Care Team | Description | +--------+ + + + + | 01/22/ | Telephone | [facility] | Marcellus Rodriguez MD | Prior Authorization | | 2016 | | Floor [address] | [address] | Request (Approved | | | | St Mailcode: [facility] | [address] | for ERT: [id number] | | | | [facility], [place] | [place], [place] | until 08/15/16 ) | | | | [address] | [address] | | | | | [phone] | [phone] | | | | | | | [...]
--- OUTSIDE RECORDS SUMMARY | ~2020-02-07 | XMS | Encounter Summary ---
Demographics + + + | Address | [address] | | | [place] [address] | + + + | Home Phone [...] + + + | Author | [facility] | + + + | Organization | [facility] | + + + | Address | Unknown | + + + | Phone | Unavailable | + + + Support + + +---------+ + | Name | Relationship | Address | Phone | + + +---------+ + | John Miguel | ECON | Unknown | | + + +---------+ + Care Team Providers + +------+ + | Care Parking Lot Attendant And Cashier Name | Role | Phone | + +------+ + | Fausto Sinclair | PCP | | + +------+ + Encounter Details +--------+ + + + + | Date | Type | Department | Care Team | Description | +--------+ + + + + | 06/23/ | Documentati | [facility] | Shaina Barrett | | | 2012 | on IP | Floor [address] | | | | | St Mailcode: [facility] | | | | | | [facility] [place], [place] | | | | | | [address] | | | | | | [phone] | | | +--------+ + + + [...]
--- OUTSIDE RECORDS SUMMARY | ~2020-02-07 | XMS | Encounter Summary ---
Demographics + + + | Address | [address] | | | [place] [address] | + + + | Home Phone [...] | Author | [facility] | + + + | Organization | [facility] | + + + | Address | Unknown | + + + | Phone | Unavailable | + + + Support + + +---------+ + | Name | Relationship | Address | Phone | + + +---------+ + | John Miguel | ECON | Unknown | | + + +---------+ + Care Team Providers + +------+ + | Care Tumbling Barrel Painter Name | Role | Phone | + +------+ + | Mikki Barajas MD | PCP | | + +------+ + Encounter Details +--------+------+ + + + | Date | Type | Department | Care Team | Description | +--------+------+ + + + | 07/06/ | Lab | Lab Center at | | 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 | | [place] | | heterozygous female | | | | [facility] | | ([facility]) | | | | [address] | | | | | | [place] | | | | | | [facility] | | | | | | 7th Floor [place], | | | | | | [place] [address] | | | | | | [phone] | | | +--------+------+ + + + [...] + | ALBUMIN URINE, | Routin | 07/06/2019 | Fabry disease in | Results for this | | RANDOM | e | 11:44 AM | heterozygous female | procedure are in the | | | | PDT | ([facility]) | results section. | + +--------+ + + + | PROTEIN, URINE | Routin | 07/06/2019 | Fabry disease in | Results for this | | | e | 11:44 AM | heterozygous female | procedure are in the | | | | PDT | ([facility]) | results section. | + +--------+ + + + | CREATININE, URINE | Routin | 07/06/2019 | Fabry disease in | Results for this | | | e | 11:44 AM | heterozygous female | procedure are in the | | | | PDT | ([facility]) | results section. | + +--------+ + + + | BOYD HOLD - LAB | Routin | 07/06/2019 | Fabry disease in | Results for this | | USE ONLY | e | 11:42 AM | heterozygous female | procedure are in the | | | | PDT | ([facility]) | results section. | + +--------+ + + + | RAINBOW HOLD TUBE - | Routin | 07/06/2019 | Fabry disease in | | | GREEN TOP | e | 11:42 AM | heterozygous female | | | | | PDT | ([facility]) | | + +--------+ + + + | LAB OTHER | Routin | 07/06/2019 | Fabry disease in | Results for this | | | e | 11:42 AM | heterozygous female | procedure are in the | | | | PDT | ([facility]) | results section. | + +--------+ + + + | LAB OTHER | Routin | 07/06/2019 | Fabry disease in | Results for this | | | e | 11:42 AM | heterozygous female | procedure are in the | | | | PDT | ([facility]) | results section. | + +--------+ + + + documented in this encounter Results ALBUMIN URINE, RANDOM (07/06/2019 11:44 AM PDT) + +--------+ + + + | Component | Value | Ref Range | Performed | Pathologist | | | | | At | Signature | + +--------+ + + + | ALBUMIN | 11 | <24 mg/L | [facility] | | | URINE, | | | LABORATORY | | | RANDOM | | | SERVICES, | | | | | | CORE | | + +--------+ + + + | CREATININE | 201.00 | mg/dL | [facility] | | | CONC UR | | | LABORATORY | | | | | | SERVICES, | | | | | | CORE | | + +--------+ + + + | ALBUMIN/CRE | 5 | <=30 mg/gm | [facility] | | | ATININE | | | LABORATORY | | | RATIO, URI* | | | SERVICES, | | | | | | CORE | | + +--------+ + + + + + | Specimen | + + | Urine - Urine | | (substance) | + + + + + + + | Performing | Address | City/State/Zipcode | Phone Number | | Organization | | | | + + + + + | [facility] | [address] | [place] [address] | | | SERVICES, CORE | [address] | | | + + + + + PROTEIN, URINE (07/06/2019 11:44 AM PDT) + +--------+ + + + | Component | Value | Ref Range | Performed | Pathologist | | | | | At | Signature | + +--------+ + + + | PROTEIN | 18 | mg/dL | [facility] | | | CONC URINE | | | LABORATORY | | | | | | SERVICES, | | | | | | CORE | | + +--------+ + + + | URINE | Random | | [facility] | | | INTERVAL | | | LABORATORY | | | | | | SERVICES, | | | | | | CORE | | + +--------+ + + + | URINE | Spot | | [facility] | | | VOLUME | | | LABORATORY | | | | | | SERVICES, | | | | | | CORE | | + +--------+ + + + + + | Specimen | + + | Urine - Urine | | (substance) | + + + + + | Narrative | Performed At | + + + | Protein Reference Range: 50-80 mg/24hr At Rest <150 mg/24hr | [facility] | | Ambulatory, normal level of physical activity <250 mg/24hr | LABORATORY | | Strenuous physical activity Normal values based on 24 hour | SERVICES, CORE | | collection interval. Patient results are calculated from actual | | | collection interval and volume. | | + + + + + + + + | Performing | Address | City/State/Zipcode | Phone Number | | Organization | | | | + + + + + | [facility] | [address] | [place] [address] | | | SERVICES, CORE | [address] | | | + + + + + CREATININE, URINE (07/06/2019 11:44 AM PDT) + +--------+ + + + | Component | Value | Ref Range | Performed | Pathologist | | | | | At | Signature | + +--------+ + + + | CREATININE | 201.00 | mg/dL | [facility] | | | CONC UR | | | LABORATORY | | | | | | SERVICES, | | | | | | CORE | | + +--------+ + + + | URINE | Random | | [facility] | | | INTERVAL | | | LABORATORY | | | | | | SERVICES, | | | | | | CORE | | + +--------+ + + + | URINE | Spot | | [facility] | | | VOLUME | | | LABORATORY | | | | | | SERVICES, | | | | | | CORE | | + +--------+ + + + + + | Specimen | + + | Urine - Urine | | (substance) | + + + + + | Narrative | Performed At | + + + | Reference range based on 24 hour collection time. Patient results | [facility] | | are calculated from actual collection time. | LABORATORY | | | SERVICES, CORE | + + + + + + + + | Performing | Address | City/State/Zipcode | Phone Number | | Organization | | | | + + + + + | [facility] | [address] | [place] [address] | | | SERVICES, CORE | [address] | | | + + + + + RAINBOW HOLD TUBE - GREEN TOP (07/06/2019 11:42 AM PDT) + + | Specimen | + + | Blood - Blood | | (substance) | + + + + + + + | Performing | Address | City/State/Zipcode | Phone Number | | Organization | | | | + + + + + | [facility] | [address] | [place] [address] | | | SERVICES, CORE | [address] | | | + + + + + LAB OTHER (07/06/2019 11:42 AM PDT) + + + + + + | Component | Value | Ref Range | Performed | Pathologist | | | | | At | Signature | + + + + + + | MISC REF | GL-3, Urine | | [facility] | | | TEST NAME | | | LABORATORY | | | | | | SERVICES, | | | | | | CORE | | + + + + + + | MISC REF | BQL | | [facility] | | | TEST RESULT | | | REFERENCE | | | | | | LAB | | + + + + + + | REFERRAL | Testing Performed | | [facility] | | | LAB NAME | By:[facility] [employer] | | REFERENCE | | | | Michell [place]ment[place], | | LAB | | | | [place] [address] | | | | + + + + + + + + | Specimen | + + | Urine - Urine | | (substance) | + + + + + | Narrative | Performed At | + + + | | | + + + + + + + + | Performing | Address | City/State/Zipcode | Phone Number | | Organization | | | | + + + + + | [facility] | | | | + + + + + | [facility] | [address] | [place] [address] | | | JOCELYN, MARAL | [address] | | | + + + + + | [facility] | see below | | | + + + + + LAB OTHER (07/06/2019 11:42 AM PDT) + + + + + + | Component | Value | Ref Range | Performed | Pathologist | | | | | At | Signature | + + + + + + | MISC REF | Lyso-GL-3, NAH Plasma | | [facility] | | | TEST NAME | | | LABORATORY | | | | | | SERVICES, | | | | | | CORE | | + + + + + + | MISC REF | 0.57 ng/mL | | [facility] | | | TEST RESULT | | | REFERENCE | | | | | | LAB | | + + + + + + | REFERRAL | Testing Performed | | [facility] | | | LAB NAME | By:[facility] [employer] | | REFERENCE | | | | Michell [address], | | LAB | | | | [place] [address] | | | | + + + [...] [facility] | [address] | [place] [address] | | | JOCELYN, MARAL | [address] [...]
--- OUTSIDE RECORDS SUMMARY | ~2020-02-07 | XMS | Encounter Summary ---
Demographics + + + | Address | [address] | | | [place] [address] | + + + | Home Phone | | + + + | Preferred Language | Unknown | + + + | Marital Status | Single | + + + | Spiritism Affiliation | Unknown | + + + [...] Team Providers + +------+ + | Care Body And Fender Worker Name | Role | Phone | + +------+ + | Florian Martinez I | PCP | Unavailable | + +------+ + Encounter Details +--------+ + + + + | Date | Type | Department | Care Team | Description | +--------+ + + + + | 07/14/ | Office | [facility] | Clinic, Pediatric | Progress Note | | 2006 | Visit-Trans | ENDOCRINOLOGY | Metabolic | | | | cribed | | [...] as of this encounter Progress Notes Interface, Throw Out Clerk In - 08/02/2006 2:33 AM PST [id number] Clinic Date: 07/14/2006 Clinic: Pediatric Metabolic Primary Care Physician: Dr. Garcia. 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 She is accompanied to this visit with her roommate, Ludy, and her daughter, Saurav, along with the daughter's biological father. She states that since the of her child about 15 months ago, her Fabry's symptoms have gotten worse. Specifically, she describes worsening pain of her hands and feet. She describes this pain as being burning needle pricks that occurs on/off throughout the day. Sometimes this is worse prior to sleeping and it does awaken her during sleep. Of note, she had a left shoulder injury in April 2006 which did result in some ligament damage. This shoulder had previously been injured and previously been operated on. As a result, she actually had an EMG to assess whether or not the pain she was having in her distal upper extremities was due to the shoulder injury. Per report, the EMG was consistent just with findings of Fabry's. She also notes increasing fatigue. 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 She has already talked to her boss about curtailing her work due to excessive fatigue. Also, she has been having increasing nausea and diarrhea for which she needs promethazine daily to help control. These symptoms are usually worse before bed and on awakening. She also notes that she has been getting increasing number of "Fabry spots" over her lower stomach and chest area. She describes these as looking like little blood blisters. She was last seen in our clinic in June 2005. At that time, we had been making arrangements to put her on Fabrazyme, the enzyme replacement for Fabry's disease. She was not eligible at that time because of her recent and issues. She has since still not been able to be started on the enzyme replacement, we are currently awaiting approval from [facility] which is her insurance provider as well as primary care physician Dr. Martinez wanting to recheck her kidney function prior to starting her on enzyme replacement. Review of Systems: She does note some sensitivity to light issues, although no blurring of vision. Her last ophthalmologic exam was in May 2005. She was noted at that time to have bilateral "corneal whorling." She also notes tinnitus but no hearing loss. Over the last year, she has had "chronic bronchitis" about 6 times. She has been treated each time with albuterol nebulizer. She is not currently having any symptoms. Renalwise, she has had proteinuria with each of her pregnancies including the last though she has not been tested for proteinuria since the of her last child in April 2005. She has not had any cerebrovascular symptoms or cardiovascular symptoms. Medications: 1. Promethazine 25 mg p.o. q. day. 2. Iron supplementation. 3. Zbxu-phd-tjuzxbk multivitamin 1 supplement. Allergies: PEN.VEE K CAUSES HER TO LOSE BODY HAIR, AND SULFA PRODUCES A RASH. Physical Examination: Vital Signs: Weight today is 130.5 kg, blood pressure is attempted x2, but is unable to obtain. General: She is an obese woman who is alert and in no acute distress. HEENT: Her extraocular muscles are intact. Her pupils are equally round and reactive to light. Funduscopic exam showed normal optic discs. No corneal clouding is noted. Cardiovascular: Due to body habitus, this is a difficult exam to perform; however, heart sounds are regular with normal rate. No murmurs, rubs, or gallops are appreciated. Lungs: Clear to auscultation bilaterally. Abdomen: Obese, positive bowel sounds. Nontender and nondistended. No hepatosplenomegaly can be appreciated. Neurologic: Cranial Nerves: Again her extraocular muscles are intact. Pupils are equally round and reactive to light. No facial asymmetry. Uvula is midline. Tongue movements are symmetric. DTRs are 2 to 3+ bilaterally in upper extremities. The right patellar reflex is 3+, left patellar reflex is 2+. There is no clonus. 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 These symptoms have been worsening over 12 to 15 months. 1. We do recommend starting Fabrazyme which this patient has been eager to do for some time now. We are still working out approval through the insurance, and we will also be contacting Dr. Martinez. 2. Today, we would like to obtain a complete metabolic panel along with a spot urine protein-creatinine along with a 24-hour urine collection for protein and creatinine to further evaluate her recent proteinuria with her last . 3. She also wanted her child tested for Fabry disease. This could not be performed at today's visit because the child, Saurav, was not expected to be seen and is not registered currently. We had sent detailed information to the child's primary care physician for testing for Fabry disease in the hope this could be done loca 4. We would like to see the patient again in 6 months' time. This patient was seen in conjunction with Dr. Fawad Muhammad. Deangelo Crawford M.D. Fawad Muhammad M.D. [facility] Molecular Medical Genetics e-mail:[email or web address] / [id number] / [id number] / [id number] / [id number] Electronically signed by Fawad Muhammad 07-30-2006 06:20:55 PM documented i n this encounter Plan of Treatment Not on filedocumented as of this encounter Visit Diagnoses Not on filedocumented in this encounter
--- OUTSIDE RECORDS SUMMARY | ~2020-02-07 | XMS | Encounter Summary ---
Demographics + + + | Address | [address] | | | [place] [address] | + + + | Home Phone [...] Team Providers + +------+ + | Care Riverboat Captain Name | Role | Phone | + +------+ + | Lexx Estiven | PCP | | + +------+ + Reason for Visit + + + | Reason | Comments | + + + | Medication | Fabrazyme Orders for Home Infusion | | administration case | | | management | | + + + Encounter Details +--------+ + + + + | Date | Type | Department | Care Team | Description | +--------+ + + + + | 11/15/ | Telephone | [facility] at [facility] 7th | Shaina Barrett | Medication | | 2017 | | Floor [address] | administration case | | | | St Mailcode: [facility] | | management | | | | [facility] [place], [place] | | (Fabrazyme Orders | | | | [address] | | for Home Infusion ) | | | | [phone] | | | +--------+ + + + [...]
--- OUTSIDE RECORDS SUMMARY | ~2020-02-07 | XMS | Encounter Summary ---
Demographics + + + | Address | [address] | | | [place] [address] | + + + | Home Phone [...] Team Providers + +------+ + | Care Long Distance Billing Operator Name | Role | Phone | + +------+ + | Florian Martinez I | PCP | Unavailable | + +------+ + Encounter Details +--------+ + + + + | Date | Type | Department | Care Team | Description | +--------+ + + + + | 11/25/ | Office | [facility] at [facility] 7th | Fawad Muhammad, | OTHER RECORD | | 2006 | Visit-ECX | Floor [address] | | | | | St Mailcode: [facility] | | | | | | [facility] [place], [place] | | | | | | [address] | | | | | | [phone] | | | +--------+ + + + [...] + + + + | Weight | 128 kg (282 lb 3 oz) | 11/25/2006 2:25 PM | | | | | PDT | | + + + + + | Height | - | - | | + + + + + | Body Mass Index | - | - | | + + + + + documented in this encounter Plan of Treatment Not on filedocumented as of this encounter Visit Diagnoses Not on filedocumented in this encounter"
--- OUTSIDE RECORDS SUMMARY | ~2020-02-07 | XMS | Encounter Summary ---
Demographics + + + | Address | [address] | | | [place] [address] | + + + | Home Phone | | + + + | Preferred Language | Unknown | + + + | Marital Status | Single | + + + | Yarsani Affiliation | Unknown | + + + [...] Team Providers + +------+ + | Care Storage Battery Tester Name | Role | Phone | + +------+ + | Katie Dominique MD | PCP | | + +------+ + Reason for Visit + + + | Reason | Comments | + + + | Fabry disease | | + + + Office Visit [...] [facility] | | | | Metabolic | 04/24/10 | Epic Dept | Metabolic | | | | | [place] | | [address] | | | | | | | St | | | | | | | Mailcode: | | | | | | | [facility] | | | | | | | [place], [place] | | | | | | | [address] | | | | | | | Phone: | | | | | | | [phone] | | | | | | | Fax: | | | | | | | [phone] | +--------+--------+ + + + + Encounter Details +--------+---------+ + + + | Date | Type | Department | Care Team | Description | +--------+---------+ + + + | 04/24/ | Office | [facility] at [facility] 7th | Michell Muhammad, | Fabry disease (HCC) | | 2009 | Visit | Floor [address] | MD | (Primary Dx) | | | | St Mailcode: [facility] | | | | | | [facility] [place], [place] | | | | | | [address] | | | | | | [phone] | | | +--------+---------+ + + + [...] + + + | Blood Pressure | 108/75 | 04/24/2010 3:20 PM | | | | | PDT | | + + + + + | Pulse | 55 | 04/24/2010 3:20 PM | | | | | PDT [...] + + + + | Weight | 125.1 kg (275 lb | 04/24/2010 3:20 PM | | | | 12.7 oz) | PDT | | + + + + + | Height | - | - | | + + + + + | Body Mass Index | - | - | | + + + + + documented in this encounter Progress Notes Laurie Chahal - 04/25/2010 3:09 PM Jeanine is seen today for routine follow-up regarding her known diagnosis of Fabry disease. She also brought her 2 month old son to this appoint ment, he was diagnosed with Fabry disease prenatally, we have documentation showing he has t he familiall Fabry mutation. We were not able to see him today, as there was not an insuran referral/approval. She comes today primarily to discuss treatment options for her Fabry disease. Interim history: Jarvis was last seen in the metabolic clinic in 2005. In the interim she has been generally healthy although she reports that she had her gall bladder removed in November 2008 and a rupt ured appendix in January 2009 for which she was hospitalized for 21 days. Her recent was quite complicated. She had been treated with Fabrazyme prior to , but stopped during . The protein in her urine worsened during and at 13 weeks gestati on she was diagnosed with a coagulation disorder. She was put on Lovenox 80 mg daily for remainder of her and she continues to take that medication now. She went into p re-term labor at 36 weeks gestation and delivered via emergency . She remained in the hospital for 6 days. She told us today, that she had a tubal ligation. Regarding her Fabry disease she reports increased nausea and vomiting, daily burning in her hands and feet that is worse in the evenings, fatigue and shortness of breath. She also re ported that she has started to "see spots." She indicated that this increase in symptoms is affecting her quality of life and ability to interact with her children. She is hoping to p ursue treatment for her Fabry disease or other means of coping with these symptoms. Her current medications in addition to the Lovenox include Celexa, iron supplements, prenat al vitamins and Reglan. PE: General: She is an obese woman who is alert and in no acute distress. HEENT: Her extraocular muscles are intact. Her pupils are equally round and reactive to l ight. Funduscopic exam showed normal optic discs. I could not see corneal abnormalities, which she no doubt has. Chest normal Abdomen: Obese. Generally nontender and nondistended, though she does express mild disco mfort with palpation, but no rebound tenderness, and no change from my previous exams. No hepatosplenomegaly can be appreciated. Neurologic: Cranial Nerves: Again her extraocular m uscles are intact. Pupils are equally round and reactive to light. No facial asymmetry. Uvula is midline. Tongue movements are symmetric. DTRs are 2 to 3+ bilaterally in up per extremities. The right patellar reflex is 3+, left patellar reflex is 2+. There is no clonus. Strength seems mildly decreased, 4+/4+ UEs and LEs (she was on bedrest for months w ith the ). Impression: Young woman with Fabry disease, previously taking Fabrazyme. It is appropriate to pursue r estarting enzyme replacement therapy for the treatment of Jarvis's Fabry disease. She is sym ptomatic with her FAbry disease, with the symptoms described in HPI above. We discussed the world-wide shortage of Fabrazyme at this given time, and the possibility that she will not be able to receive the medication even after it is prescribed until the shortage eases, but we will try to get it for her. We will work with BRYCE Lakhani in our office to pur chet Fabrazyme infusions for Jarvis. We will wait to recommend baseline laboratory testing (C MP, urine protein, etc) until closer to the start date of Fabrazyme. We discussed that mos t of her symptoms were compatible with Fabry disease. We discussed the decision to retart Luke cook. We discussed monitoring plan for her Fabry disease. The clotting issue is unrela zain to Fabry. Recommendations: 1. Restart enzyme replacement therapy with Fabrazyme if possible, previous dose, previous i nfusion center 2. Follow up in metabolic clinic in six months given Jarvis's increased symptoms and restart ing medication. [facility] follow up will probably be ok annually, considering she [place] away in [facility]. 3. Follow-up for her other problems, like the coagulopathy locally, this is not related to Fabry disease. Laurie Chahal, MS Genetic Counselor I saw the patient with Laurie Chahal and spent 30 minutes in face to face contact with her. More than 50% of that time was spent in counseling. I personally interviewed the patient, performed the physical examination, and personally fo rmulated the plan with Ms. Chahal. . I have reviewed, entered my findings, and edited and a gree with the above documentation. MICHELL MUHAMMAD MD Professor, Pediatrics and Molecular and Medical Genetics [facility], [place] [address] Email: [email or web address] documented in this en counter Plan of Treatment Not on filedocumented as of this encounter Visit Diagnoses + + | Diagnosis | + + | Fabry disease (HCC) - Primary Lipidoses | + + documented in this encounter
--- OUTSIDE RECORDS SUMMARY | ~2020-02-07 | XMS | Encounter Summary ---
Demographics + + + | Address | [address] | | | [place] [address] | + + + | Home Phone [...] Team Providers + +------+ + | Care Pharmacy Cashier Name | Role | Phone | + +------+ + | Lexx Estiven | PCP | | + +------+ + Reason for Visit + + + | Reason | Comments | + + + | Medication | Missed infusions | | management | | + + + Encounter Details +--------+ + + + + | Date | Type | Department | Care Team | Description | +--------+ + + + + | 11/11/ | Telephone | Metabolic Genetics | Deidre Nguyen MD | Medication | | 2018 | | at [facility] | [address] | management (Missed | | | | [address] | [address] [place], | infusions) | | | | [place] | [place] [address] | | | | | [facility] | [phone] | | | | | [address]th Floor [place], | | | | | | [place] [address] | | | | | | [phone] | | | +--------+ + + + [...]
--- OUTSIDE RECORDS SUMMARY | ~2020-02-07 | XMS | Encounter Summary ---
Demographics + + + | Address | [address] | | | [place] [address] | + + + | Home Phone [...] Team Providers + +------+ + | Care Tool Crib Supervisor Name | Role | Phone | + +------+ + | Lexx Estiven | PCP | | + +------+ + Encounter Details +--------+ + + + + | Date | Type | Department | Care Team | Description | +--------+ + + + + | 05/04/ | Documentati | Metabolic Genetics | Genny Hagan | | | 2018 | on | at [facility] | B, ALLOCATION ANALYST [address] | | | | | [address] | [facility] | | | | | [place] | [place], [place] | | | | | [facility] | [address] | | | | | [address] [place] [address], | [phone] | | | | | [place] [address] | | | | | | [phone] | | | +--------+ + + + [...]
--- OUTSIDE RECORDS SUMMARY | ~2020-02-07 | XMS | Encounter Summary ---
Demographics + + + | Address | [address] | | | [place] [address] | + + + | Home Phone [...] Author + + + | Author | [facility] | + + + | Organization | [facility] | + + + | Address | Unknown | + + + | Phone | Unavailable | + + + Support + + +---------+ + | Name | Relationship | Address | Phone | + + +---------+ + | John Miguel | ECON | Unknown | | + + +---------+ + Care Team Providers + +------+ + | Care Supply Chain Manager Name | Role | Phone | [...] to | | 2020 | | at [facility] | [address] [facility] | home infusions) | | | | [address] | Naty Isaacs [place], | | | | | [place] | [place] [address] | | | | | [facility] | [phone] | | | | | 7th Floor [place], | | | | | | [place] [address] | | | | | | [phone] | | | +--------+ + + + [...]
--- OUTSIDE RECORDS SUMMARY | ~2020-02-07 | XMS | Encounter Summary ---
Demographics + + + | Address | [address] | | | [place] [address] | + + + | Home Phone [...] Author + + + | Author | [facility] | + + + | Organization | [facility] | + + + | Address | Unknown | + + + | Phone | Unavailable | + + + Support + + +---------+ + | Name | Relationship | Address | Phone | + + +---------+ + | John Miguel | ECON | Unknown | | + + +---------+ + Care Team Providers + +------+ + | Care Soil And Plant Scientist Name | Role | Phone | + +------+ + | Mikki Barajas MD | PCP | | + +------+ + Encounter Details +--------+ + + + + | Date | Type | Department | Care Team | Description | +--------+ + + + + | 01/22/ | Documentati | Digestive Health | Clinic, Surgery | | | 2018 | on | Center at [facility] [address] | | | | | | [address] | | | | | | Mailcode: [place] | | | | | | for Health and | | | | | | Healing, [address] | | | | | | [place], [place] | | | | | | [address] | | | | | | [phone] | | | +--------+ + + + [...]
--- OUTSIDE RECORDS SUMMARY | ~2020-02-07 | XMS | Encounter Summary ---
Demographics + + + | Address | [address] | | | [place] [address] | + + + | Home Phone | | + + + | Preferred Language | Unknown | + + + | Marital Status | Single | + + + | Yazidism Affiliation | Unknown | + + + [...] Team Providers + +------+ + | Care Cleaner Operator Name | Role | Phone | + +------+ + | Estiven Hallmna DO | PCP | | + +------+ + Reason for Referral Audiology Services (Routine) +--------+--------+ + + + + | Status | Reason | Specialty | Diagnoses / | Referred By | Referred To | | | | | Procedures | Contact | Contact | +--------+--------+ + + + + | Closed | | Agricultural Specialist | Diagnoses | Deidre Nguyen, | Ent | | | | | Shadi | [address] | Audiology Ppv | | | | | disease in | Paxton Davin | [address] | | | | | heterozygous | [address] | [address] | | | | | female | [facility] [place] | Physician's | | | | | ([facility]) | [address] | Anjali, | | | | | Procedures | Phone: | 2nd floor | | | | | CONSULT TO | [phone] | [facility] [place] | | | | | AUDIOLOGY | Fax: | [address] | | | | | | [phone] | Phone: | | | | | | | [phone] | | | | | | | Fax: | | | | | | | [phone] | +--------+--------+ + + + + Reason for Visit + + + | Reason | Comments | + + + | Follow-up visit | | + + + Consultation (Routine) +--------+--------+ + + + + | Status | Reason | Specialty | Diagnoses / | Referred By | Referred To | | | | | Procedures | Contact | Contact | +--------+--------+ + + + + | Closed | | Medical | | Lexx, | Mge | | | | Genetics | | DO Estiven | Metabolic Dch | | | | | | [facility] | [address] | | | | | | Hospital | [facility] | | | | | | Internal | [facility] | | | | | | Medicin | Children's | | | | | | [address] | [facility] 7[address] | | | | | | [address] | Floor | | | | | | [place], | [place], [place] | | | | | | [place] [address] | [address] | | | | | | Phone: | Phone: | | | | | | [phone] | [phone] | | | | | | Fax: | Fax: | | | | | | [phone] | [phone] | +--------+--------+ + + + + Encounter Details +--------+---------+ + + + | Date | Type | Department | Care Team | Description | +--------+---------+ + + + | 07/07/ | Office | Metabolic Genetics | Deidre Nguyen MD | 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[facility] | [address] [facility] | heterozygous female | | | | [address] | [place] Isaacs [place], | ([facility]) (Primary Dx) | | | | [place] | [place] [address] | | | | | [facility] | [phone] | | | | | 7th Floor [place], | | | | | | [place] [address] | | | | | | [phone] | | | +--------+---------+ + + + [...] + + + | Blood Pressure | 131/82 | 07/07/2018 9:49 AM | | | | | PDT | | + + + + + | Pulse | 102 | 07/07/2018 9:49 AM | | | | | PDT [...] + + + + | Weight | 153.9 kg (339 lb 4.6 | 07/07/2018 9:49 AM | | | | oz) | PDT | | + + + + + | Height | - | - | | + + + + + | Body Mass Index | 57.57 | 11/04/2017 1:37 PM | | | | | PST | | + + + + + documented in this encounter Progress Notes Deidre Nguyen MD - 07/07/2018 11:00 AM PDT REFERRING PROVIDER: Estiven Hallman DO [facility] Internal [facility] [address] [place] [address] PRIMARY CARE PROVIDER: Estiven Hallman DO REASON FOR VISIT: Chief Complaint Patient presents with Follow-up visit HPI and PMH: GLA 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 Yes, started prior to 2006, then stopped for , and restarted after 2009 Infusion Location: [place] infusion facility Date of Last Evaluation: 10/2017 Jarvis Miguel is a 38 y.o. 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 DNA confirmed the above mutation at [facility], but the report just says the familial mutation is "present". Since her last evaluation, the patient reports no significant changes to her medical or luis gical history, with no hospitalization, interval visits to the ER, or new medications. She is getting IV Fabrazyme every 2 weeks at an infusion center near home. She used to do this through home infusion but with her son requiring infusions, this is a better schedule for th em both to be infused together. She has no issues w/ infusions, no issues w/ port access or infusion reactions. Disease specific history by systems: Acroparesthesia: She feels them along her feet, hands, legs, lower back, worse w/ heat and exercise. She used to be on opiods for this, but now is being managed with Lyrica. She feels this does no t completely improve her symptoms and is working w/ her pain specialist to find something ad equate for the breakthrough pain. Being referred to Dr. Alexander for her back pain. Audiological: Both ears w/ tinnitus and muffled sounds. Has not been evaluated by audiology. Cardiac: No echocardiogram for many years. Last echo was 2009 and was reportedly normal, done wh en she was at 24 weeks. Gastrointestinal: Watery, 3-5 times per day, losing weight in the past year due to this. She's now taking Ensure because she feels this helps w/ better absorption. She was followed by bariatric surgery group in 2017. She has not followed w/ them b/c s he was told she needed to lose some more weight before she could be a good candidate. She f eels she might be a good candidate now and wants to follow w/ them again soon. Hypohidrosis: She feel she sweats less than other women Neurological: Headaches about once a week (takes Tylenol, Motrin, or Excedrin) Fatigue daily. She has problem falling sleep, despite taking Benadryl and melatonin. S he used to be prescribed amitriptyline but this did not help her fall asleep. Has never had a stroke or TIA Neurologist: Dr. Tee Mehta (sp?) Pulmonary: When very active, she gets SOB from fatigue; if she paces herself, she's fine. No need for inhalers. Renal: No protein on dipstick in 2017. She had intermittent proteinuria that would resolve, bu t not sustained. Other Medical History: Diabetes type II GERD Obesity HTN Last Labs: ? Date: 06/16/2017 Urine GL3 n/a Plasma GL3 2 ug/mL Plasma lyso-GL3 n/a Anti-GLA AB neg HOSPITALIZATIONS: none in past few years. SURGICAL HISTORY: Past Surgical History Procedure Laterality Date Cholecystectomy 11/2008 Appendectomy 04/2009 ruptured, hospitalized 21 days section 02/09/2010 emergency Tubal ligation 02/09/2010 Oophorectomy, left 08/2012 Due to cysts Hysterectomy, partial early 09/2012 Salpingo-oophorectomy, right later 09/2012 and left salpingectomy, due to cysts Central line placement 04/2013 Had portacath replaced, now on the right side. 02.03.2017 to be moved CURRENT MEDICATIONS: Current Outpatient Prescriptions Medication Sig acetaminophen 325 mg Oral tablet Take 325 mg by mouth every four hours as needed. 2 tab s daily for headaches. Indications: HEADACHE DISORDER Agalsidase Beta (FABRAZYME) 35 mg intravenous recon soln Inject 140 mg into the vein (I V) every fourteen days. Indications: Fabry Disease amitriptyline 25 mg Oral Tablet Take 75 mg by mouth once daily at bedtime. Pt reports t aking three tablets once per day ergocalciferol 50,000 unit oral capsule Take 1 capsule by mouth every seven days. Indic ations: Vitamin D Deficiency (High Dose Therapy) estradiol 1 mg oral tablet glipiZIDE ER 10 mg oral tablet extended release 24hr Take 10 mg by mouth once daily. hydrOXYzine pamoate 50 mg oral capsule Take 50 mg by mouth once daily. JANUVIA 100 mg oral tablet L-Methylfolate (DEPLIN) 15 mg Oral Tablet Take 15 mg by mouth once daily. LATUDA 120 mg oral tablet LYRICA 75 mg oral capsule Take 75 mg by mouth three times daily. omeprazole 20 mg oral capsule,delayed release(DR/EC) two times daily. ondansetron 4 mg oral tablet 8 mg. prazosin 2 mg oral capsule Take 4 mg by mouth once daily at bedtime. PLUS, CALCIUM CARB, 27 mg iron- 1 mg oral tablet propranolol 40 mg oral tablet Take 40 mg by mouth three times daily. venlafaxine 75 mg oral tablet extended release 24hr 37.5 mg once daily. venlafaxine XR 37.5 mg oral capsule,extended release 24hr VICTOZA 2-DESTINEE 0.6 mg/0.1 mL (18 mg/3 mL) subcutaneous pen injector Inject 1.8 mg under the skin (SUBC) once daily. No current facility-administered medications for this visit. ALLERGIES: Allergies Allergen Reactions Augmentin [Amoxicillin-Pot Clavulanate] Nausea and Vomiting rash Doxycycline Rash Clarification Needed PEN V K Sulfa (Sulfonamide Antibiotics) ROS: Medications, allergies, medical, surgical history were reviewed by me at this visit ut [facility] clinic's patient history form. Pertinent positives are noted in history. All other systems were negative unless noted, including the following: fever, wt. change, ENT, cardiovascular, respiratory, GI, urinary, skin, muscle, bones, joints, neurologic, bleeding /blood disorders. SIGNIFICANT FAMILY HISTORY (See scanned pedigree): Family History Problem Relation Heart Disease Mother V Fib, and has a AICD no history of cardiomyopathy SOCIAL HX: Jarvis lives with her partner and son. VITALS: Wt 153.9 kg (339 lb 4.6 oz), BP 131/82, Pulse 102, BMI 57.57 kg/(m^2). PHYSICAL EXAM: General appearance: obese Head: Normocephalic, with normal hair texture and distribution. Neck: supple without webbing or thyromegaly. Face: symmetrical and non-dysmorphic. Eyes: EOMs and red reflexes normal bilaterally. Ears: External ears normally formed and placed. Oropharynx: Normal dentition for age. Mucous membranes moist. Chest: Breath sounds are equal & clear; work of breathing is normal. Heart: No murmurs present, regular rate & rhythm; precordium quiet. Abdomen: soft, rounded, no palpable masses or hepatosplenomegaly Extremities: Normal range of motion. Neurologic: CN grossly normal. Normal neuromuscular tone for patient state and age. Normal strength and gait. Skin: No notable skin lesions DIAGNOSIS: Fabry disease ASSESSMENT/ RECOMMENDATIONS: 38 y.o. female with Fabry disease manifesting with GI symptoms, acroparesthesia, fatigue, h eadaches, and subjective hearing loss. She has not had an echocardiogram for many years, th ough she has been treated on ERT more consistently since 2009. She's had history of intermi ttent proteinuria. We discussed at length about Fabry disease, disease manifestation, treatment and management , and inheritance. Fabry disease is an X-linked lysosomal storage disorder due to a deficien t lysosomal enzyme (alpha-galactosidase A) causing globotriaosylceramide (GL3) to build up i n various tissues and organs, mainly in the endothelium of small vessels, heart valves, hear t muscle, and renal podocytes. For this reason, patients with Fabry disease are at risk for microvascular occlusions, acroparesthesia and gut paresthesias, hearing loss, hypohydrosis, arrhythmias, valvular heart disease, cardiomyopathy, renal disease, and stroke. While it is X-linked, females can have variable symptoms, from little to no symptoms, attenuated disease , to full Fabry manifestations. Genetic and enzyme testing is generally not predictive of a female patient s severity. She knows to continue on Fabrayzme for this condition, the only FDA-approved drug in the [place] for the treatment of Fabry disease for her mutation. I stressed compliance of this drug every 2 weeks so that we do not allow the lysosomal storage of GL3 to be built back up after the slow reduction over the course of many years on ERT. For her pain, I discussed w/ her that Fabry causes neuropathic pain from small nerve fiber damage (acroparesthesia). Lyrica and other anti-seizure classes of medications, or Cymbalta and other antidepressants that has been known to be effective in neuropathic pain can also be used. She should continue to work w/ her pain specialty team to find the best regimen fo r her. If she is having issues w/ bloating, gas, or GI discomfort, Beano is a bacterial form of al pha-galactosidase that has worked for some patients w/ Fabry in terms of GI symptoms. She c an take this before each meal. In addition, we discussed that symptoms of her chronic medical conditions such as diabetes, hypertension, and hyperlipidemia may overlap with Fabry disease symptoms. Therefore, one of the main goals in Fabry management is to maintain these conditions under control to prevent exacerbation of her symptoms. PLAN: - Will ask PCP to schedule her for echocardiogram and EKG yearly. If her body habitus is a limitation to getting a good view on the echocardiogram, I would advise ordering a cardiac MRI with gadolinium to look for subtle fibrotic process of the heart; cardiac MRI is recomme nded every 3-5 years. - Will ask PCP to check lipid panel, HbA1C yearly. - Beano before every meal, trial period to see if this will help w/ her GI symptoms - Continue follow-up with pain specialists, and to consider strategies specifically for cathy ropathic pain, such as Lyrica and others. - Continue IV Fabrazyme at 1 mg/kg every 2 weeks - Labs today: urine GL3, urine microalb/cr, plasma lyso-GL3, and Fabrazyme AB (Jarvis says the labs will cost too much if the infusion center draws them) FOLLOW UP: follow-up in 1 year or sooner if there are concerns. I spent 60 minutes with this patient and family inteviewing, examining and evaluating infor mation; > 50% of time spent on counseling and coordination of care. Deidre Nguyen MD [facility] Metabolic Clinic [address] [place] [address] documented in this encounte r Plan of Treatment Not on filedocumented as of this encounter Results ALBUMIN URINE, RANDOM (07/07/2018 [...] | + + + + + | [facility] | [address] | [place] [address] | | | SERVICES, CORE | JAMIA [...] | + + + + + | [facility] | | | | + + + + + | [facility] | [address] | [place] [address] | | | SERVICES, CORE | PARK [...] | | LAB | | | | Michell | | | | | | [place] | | | | | | [address] | | | | + + + [...] + + | [facility] | [address] [facility] | [place] [address] | | | SERVICES, MARAL | [address] | | | [...] | REFERENCE | | | | Michell Geovany, | | LAB | | | | [place] [address] | | | | + + + [...] | + + + + + | [facility] | [address] | [place] [address] | | | SERVICES, CORE | PARK [...]
--- OUTSIDE RECORDS SUMMARY | ~2020-02-07 | XMS | Encounter Summary ---
Demographics + + + | Address | [address] | | | [place] [address] | + + + | Home Phone [...] + + | Author | [facility] | + + + | Organization | [facility] | + + + | Address | Unknown | + + + | Phone | Unavailable | + + + Support + + +---------+ + | Name | Relationship | Address | Phone | + + +---------+ + | John Miguel | ECON | Unknown | | + + +---------+ + Care Team Providers + +------+ + | Care Sheetmetal Patternmaker Name | Role | Phone | + +------+ + | Lexx Estiven DO | PCP | | + +------+ + Encounter Details +--------+ + + + + | Date | Type | Department | Care Team | Description | +--------+ + + + + | 02/07/ | Abstract | Digestive Health | Clinic, Surgery | | | 2016 | | [facility] at [facility] [address] | | | | | | [address] | | | | | | Mailcode: [place] | | | | | | for Health and | | | | | | Healing, [address] | | | | | | [place], [place] | | | | | | [address] | | | | | | [phone] | | | +--------+ + + + [...]
--- OUTSIDE RECORDS SUMMARY | ~2020-02-07 | XMS | Encounter Summary ---
Demographics + + + | Address | [address] | | | [place] [address] | + + + | Home Phone [...] Author + + + | Author | [facility] | + + + | Organization | [facility] | + + + | Address | Unknown | + + + | Phone | Unavailable | + + + Support + + +---------+ + | Name | Relationship | Address | Phone | + + +---------+ + | John Miguel | ECON | Unknown | | + + +---------+ + Care Team Providers + +------+ + | Care Oleo Hasher And Renderer Name | Role | Phone | + +------+ + | Fausto Sinclair | PCP | | + +------+ + Reason for Visit + + + | Reason | Comments | + + + | Medication | Needs updated orders | | management | | + + + Encounter Details +--------+ + + + + | Date | Type | Department | Care Team | Description | +--------+ + + + + | 04/15/ | Telephone | [facility] at [facility] 7th | Deana Jimenez MD | Medication | | 2012 | | [address] | [address] | management (Needs | | | | St Mailcode: [facility] | Nat[place] Isaacs [place], | updated orders ) | | | | [facility], [place] | [place] [address] | | | | | [address] | [phone] | | | | | [phone] | | | +--------+ + + + [...]
--- OUTSIDE RECORDS SUMMARY | ~2020-02-07 | XMS | Encounter Summary ---
Demographics + + + | Address | [address] | | | [place] [address] | + + + | Home Phone [...] Team Providers + +------+ + | Care Preschool Teacher Assistant Name | Role | Phone | [...] | +--------+ + + + + | 11/08/ | Telephone | [facility] at [facility] 7th | Fawad Muhammad, | | | 2009 | | Floor [address] | | | | | St Mailcode: [facility] | | | | | | [facility] [place], [place] | | | | | | [address] | | | | | | [phone] | | | +--------+ + + + [...]
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
--- OUTSIDE RECORDS SUMMARY | ~2020-02-07 | XMS | Encounter Summary ---
Demographics + + + | Address | [address] | | | [place] [address] | + + + | Home Phone [...] Team Providers + +------+ + | Care Steel Pourer Name | Role | Phone | + +------+ + | Lexx Estiven | PCP | | + +------+ + Encounter Details +--------+ + + + + | Date | Type | Department | Care Team | Description | +--------+ + + + + | 12/28/ | Documentati | [facility] | Deana Jimenez MD | | | 2013 | on | Floor [address] | [address] | | | | | St Mailcode: [facility] | Naty Isaacs [place], | | | | | [facility] [place], [place] | [place] [address] | | | | | [address] | [phone] | | | | | [phone] | | | +--------+ + + + [...] + | LAB OTHER | Routin | 11/11/2013 | | Results for this | | | e | | | procedure are in the | | | | | | results section. | + +--------+ + + + | BASIC METABOLIC SET | Routin | 11/11/2013 | | Results for this | | (NA, K, CL, TCO2, | e | | | procedure are in the | | BUN, CR, GLU, CA) | | | | results section. | + +--------+ + + + documented in this encounter Results BASIC METABOLIC SET (NA, K, CL, TCO2, BUN, CR, GLU, CA) (11/11/2013) + +---------+ + + + | Component | Value | Ref Range | Performed | Pathologist | | | | | At | Signature | + +---------+ + + + | GLUCOSE, | 104 (A) | 70 - 100 mg/dL | NON [facility] | | | PLASMA | | | LAB | | | (LAB) | | | | | + +---------+ + + + | BUN, PLASMA | 13 | mg/dL | NON [facility] | | | (LAB) | | | LAB | | + +---------+ + + + | CREATININE | 0.77 | mg/dL | NON [facility] | | | PLASMA | | | LAB | | | (LAB) | | | | | + +---------+ + + + | SODIUM, | 139 | mmol/L | NON [facility] | | | PLASMA | | | LAB | | | (LAB) | | | | | + +---------+ + + + | POTASSIUM, | 4.2 | mmol/L | NON [facility] | | | PLASMA | | | LAB | | | (LAB) | | | | | + +---------+ + + + | CHLORIDE, | 103 | mmol/L | NON [facility] | | | PLASMA | | | LAB | | | (LAB) | | | | | + +---------+ + + + | TOTAL CO2, | 26 | mmol/L | NON [facility] | | | PLASMA | | | LAB | | | (LAB) | | | | | + +---------+ + + + | CALCIUM, | 8.9 | mg/dL | NON [facility] | | | PLASMA | | | LAB | | | (LAB) | | | | | + +---------+ + + + | POTASSIUM | 4.2 | | NON [facility] | | | CMNT | | | LAB | | + +---------+ + + + + + | Specimen | + + | Blood - Blood | + + + + + | Narrative | Performed At | + + + | | | + + + + +---------+ + + | Performing | Address | City/State/Zipcode | Phone Number | | Organization | | | | + +---------+ + + | NON [facility] | | | | + +---------+ + + LAB OTHER (11/11/2013) + + + + + + | Component | Value | Ref Range | Performed | Pathologist | | | | | At | Signature | + + + + + + | ALKALINE | NegativeComment: | | NON [facility] | | | PHOS, OTHER | Antibody | | LAB | | | CALC | | | | | + + + + + + | ALKALINE | 3.2Comment: Plasma GL-3 | 7.0 ug/mL | NON [facility] | | | PHOS, OTHER | | | LAB | | | CALC | | | | | + + + + + + + + | Specimen | + + | | + + + + + | Narrative | Performed At | + + + | | | + + + + +---------+ + + | Performing | Address | City/State/Zipcode | Phone Number | | Organization | | | | + +---------+ + + | NON [facility] | | | | + +---------+ + + documented in this encounter Visit Diagnoses Not on filedocumented in this encounter"
--- OUTSIDE RECORDS SUMMARY | ~2020-02-07 | XMS | Encounter Summary ---
Demographics + + + | Address | [address] | | | [place] [address] | + + + | Home Phone [...] Team Providers + +------+ + | Care State Assessed Properties Director Name | Role | Phone | + +------+ + | eLxx Estiven DO | PCP | | + +------+ + Encounter Details +--------+ + + + + | Date | Type | Department | Care Team | Description | +--------+ + + + + | 01/22/ | Abstract | Dig[facility]ive [facility] | Clinic, Surgery | | | 2019 | | [facility] [facility] [address] | | | | | | [address] | | | | | | Mailcode: [place] | | | | | | for Health and | | | | | | Healing, Building 2 | | | | | | [place], [place] | | | | | | [address] | | | | | | [phone] | | | +--------+ + + + [...]
--- OUTSIDE RECORDS SUMMARY | ~2020-02-07 | XMS | Encounter Summary ---
Demographics + + + | Address | [address] | | | [place] [address] | + + + | Home Phone [...] + + + | Author | [facility] | + + + | Organization | [facility] | + + + | Address | Unknown | + + + | Phone | Unavailable | + + + Support + + +---------+ + | Name | Relationship | Address | Phone | + + +---------+ + | John Miguel | ECON | Unknown | | + + +---------+ + Care Team Providers + +------+ + | Care Lead Printer Name | Role | Phone | + +------+ + | Lexx Estiven | PCP | | + +------+ + Reason for Visit + + + | Reason | Comments | + + + | Medication | | | management | | + + + Encounter Details +--------+ + + + + | Date | Type | Department | Care Team | Description | +--------+ + + + + | 04/28/ | Telephone | [facility] 7th | Benny Hernandez MD | Medication | | 2013 | | Floor [address] | [address] | management | | | | St Mailcode: [facility] | [address] | | | | | [facility] [place], [place] | [place], [place] | | | | | [address] | [address] | | | | | [phone] | [phone] | | | | | | | [...]
--- OUTSIDE RECORDS SUMMARY | ~2020-02-07 | XMS | Clinical Summary ---
Demographics + + + | Address | [address] | | | [place] [address] | + + + | Home Phone | | + + + | Preferred Language | Unknown | + + + | Marital Status | Single | + + + | Yarsani Affiliation | Unknown | + + + | Race | Unknown | + + + | Ethnic Group | Unknown | + + + Author + + + | Author | [facility] | | | and [place] | + + + | Organization | [facility] | | | and [place] | + + + | Address | Unknown | + + + | Phone | Unavailable | + + + Support + + + + + | Name | Relationship | Address | Phone | + + + + + | Jordyn Miguel | ECON | NONE | | | | | [place] [address] | | + + + + + | Jordyn Miguel | ECON | NONE | + | | | | [place] [address] | | + + + + + Care Team Providers + +------+ + | Care Crematory Operator Name | Role | Phone | [...] +--------+ +---------+--------+ | MEDICARE | MEDICA | [id number] | 09/15/19 | [phone] | | Medica | | | RE | | 17-Pre | 5 | | re | | | PART A | | sent | | | | | | AND B | | | | | | + +--------+ +--------+ +---------+--------+ | [employer] | MODA | [id number] | | [phone] | | Medica | [...] | 1980 | [phone] | [place] [address] | | | andrew | | | 7 (Home) | | + +--------+ +--------+ + + Advance Directives + + + + + | Type | Date Recorded | Patient | Explanation | | | | Health Navigator | | + + + + + | Power of | | | | | Land Planner | | | | + + + + + | Advance | 01/23/2018 10:29 | | [facility] | | Directive | AM | | | + + + + +"
--- OUTSIDE RECORDS SUMMARY | ~2020-02-07 | XMS | Encounter Summary ---
Demographics + + + | Address | [address] | | | [place] [address] | + + + | Home Phone | | + + + | Preferred Language | Unknown | + + + | Marital Status | Single | + + + | Pentecostalism Affiliation | Unknown | + + + [...] Team Providers + +------+ + | Care Retirement Manager Name | Role | Phone | + +------+ + | Estiven Hallman DO | PCP | | + +------+ + Encounter Details +--------+--------+ + + + | Date | Type | Department | Care Team | Description | +--------+--------+ + + + | // | Travel | | | | | [...]
--- OUTSIDE RECORDS SUMMARY | ~2020-02-07 | XMS | Encounter Summary ---
Demographics + + + | Address | [address] | | | [place] [address] | + + + | Home Phone [...] Author | [facility] | + + + | Organization | [facility] | + + + | Address | Unknown | + + + | Phone | Unavailable | + + + Support + + +---------+ + | Name | Relationship | Address | Phone | + + +---------+ + | John Miguel | ECON | Unknown | | + + +---------+ + Care Team Providers + +------+ + | Care Certified Technician Specialist Name | Role | Phone | + +------+ + | Lexx Estiven | PCP | | + +------+ + Reason for Visit + + + | Reason | Comments | + + + | Follow-up encounter | New Infusion Orders | + + + Encounter Details +--------+ + + + + | Date | Type | Department | Care Team | Description | +--------+ + + + + | 12/03/ | Documentati | Metabolic Genetics | Genny Hagan | Follow-up encounter | | 2019 | on | at [facility] | B, LEAD QUALITY TECHNICIAN [address] | (New Infusion | | | | [address] [place] [address] | [facility] | Orders) | | | | Doerajithecher | [place], [place] | | | | | [facility] | [address] | | | | | [address] [place] [address], | [phone] | | | | | [place] [address] | | | | | | [phone] | | | +--------+ + + + [...]
--- OUTSIDE RECORDS SUMMARY | ~2020-02-07 | XMS | Encounter Summary ---
Demographics + + + | Address | [address] | | | [place] [address] | + + + | Home Phone | | + + + | Preferred Language | Unknown | + + + | Marital Status | Single | + + + | Lutheran Affiliation | Unknown | + + + | Race | Unknown | + + + | Ethnic Group | Unknown | + + + Author + + + | Author | [facility] | | | and [place] | + + + | Organization | [facility] | | | and [place] | + + + | Address | Unknown | + + + | Phone | Unavailable | + + + Support + + + + + | Name | Relationship | Address | Phone | + + + + + | Jordyn Miguel | ECON | NONE | | | | | [place] [address] | | + + + + + | Jordyn Miguel | ECON | NONE | + | | | | [place] [address] | | + + + + + Care Team Providers + +------+ + | Care Conductor Sleeping Car Name | Role | Phone | + +------+ + PCP | Unavailable | + +------+ + Encounter Details +--------+ + + + + | Date | Type | Department | Care Team | Description | +--------+ + + + + | 08/30/ | Hospital | [facility] | | | | 2000 | Encounter | [facility] | | | | | | CENTER [address] | | | | | | [place], [place] | | | | | | [address] | | | | | | [phone] | | | +--------+ + + + [...]
--- OUTSIDE RECORDS SUMMARY | ~2020-02-07 | XMS | Encounter Summary ---
Demographics + + + | Address | [address] | | | [place] [address] | + + + | Home Phone [...] Team Providers + +------+ + | Care Regulatory Affairs Manager Name | Role | Phone | + +------+ + | Estiven Hallman | PCP | | + +------+ + Reason for Visit + + + | Reason | Comments | + + + | Medication | [facility] | | management | | + + + Encounter Details +--------+ + + + + | Date | Type | Department | Care Team | Description | +--------+ + + + + | 08/05/ | Telephone | [facility] 7th | Shaina Barrett | Medication | | 2013 | | Floor [address] | management | | | | St Mailcode: [facility] | | ([facility]) | | | | [facility] [place], [place] | | | | | | [address] | | | | | | [phone] | | | +--------+ + + + [...]
--- OUTSIDE RECORDS SUMMARY | ~2020-02-07 | XMS | Encounter Summary ---
Demographics + + + | Address | [address] | | | [place] [address] | + + + | Home Phone [...] Team Providers + +------+ + | Care Full Stack Software Engineer Name | Role | Phone | + +------+ + | Lexx Estiven | PCP | | + +------+ + Encounter Details +--------+ + + + + | Date | Type | Department | Care Team | Description | +--------+ + + + + | 01/28/ | Document-Sc | Health Information | Unknown . | | | 2017 | anned | Services [id number] | | | | | [address] | | | | | | Mailcode: OP17A | | | | | | [facility] | | | | | | [place], [place] | | | | | | [address] | | | | | | [phone] | | | +--------+ + + + [...] + + | ORDERS OTHER | | 01/28/2017 | | Results for this | | | | 12:00 AM | | procedure are in the | | | | PDT | | results section. | + +--------+ + + + documented in this encounter Results ORDERS OTHER (01/28/2017 12:00 AM PDT) + + + | Narrative | Performed At | + + + | | | + + + documented in this encounter Visit Diagnoses Not on filedocumented in this encounter"
--- OUTSIDE RECORDS SUMMARY | ~2020-02-07 | XMS | Encounter Summary ---
Demographics + + + | Address | [address] | | | [place] [address] | + + + | Home Phone [...] Team Providers + +------+ + | Care Education And Development Manager Name | Role | Phone | [...] | | [place], [place] | [address] [place], | patient (Possible | | | | [address] | [place] [address] | cholecystectomy) | | | | [phone] | [phone] | | | | | | | [...]
--- OUTSIDE RECORDS SUMMARY | ~2020-02-07 | XMS | Encounter Summary ---
Demographics + + + | Address | [address] | | | [place] [address] | + + + | Home Phone | | + + + | Preferred Language | Unknown | + + + | Marital Status | Single | + + + | Hindu Affiliation | Unknown | + + + | Race | White | + + + | Ethnic Group | Not or | + + + Author + + + | Author | [facility] | + + + | Organization | [facility] | + + + | Address | Unknown | + + + | Phone | Unavailable | + + + Support + + +---------+ + | Name | Relationship | Address | Phone | + + +---------+ + | John Miguel | ECON | Unknown | | + + +---------+ + Care Team Providers + +------+ + | Care Roller Presser Operator Name | Role | Phone | [...] | 11/15/ | Telephone | [facility] 7th | Shaina Barrett | Medication | | 2017 | | Floor [address] | administration case | | | | St Mailcode: [facility] | | management | | | | [facility] [place], [place] | | ([facility] Orders | | | | [address] | | for Home Infusion ) | | | | [phone] | | | +--------+ + + + [...]
--- OUTSIDE RECORDS SUMMARY | ~2020-02-07 | XMS | Encounter Summary ---
Demographics + + + | Address | [address] | | | [place] [address] | + + + | Home Phone | | + + + | Preferred Language | Unknown | + + + | Marital Status | Single | + + + | Evangelical Affiliation | Unknown | + + + [...] Team Providers + +------+ + | Care Cartridge Feeder Name | Role | Phone | + [...]
--- OUTSIDE RECORDS SUMMARY | ~2020-02-07 | XMS | Encounter Summary ---
Demographics + + + | Address | [address] | | | [place] [address] | + + + | Home Phone [...] Author + + + | Author | [facility] | + + + | Organization | [facility] | + + + | Address | Unknown | + + + | Phone | Unavailable | + + + Support + + +---------+ + | Name | Relationship | Address | Phone | + + +---------+ + | John Miguel | ECON | Unknown | | + + +---------+ + Care Team Providers + +------+ + | Care Linderman Machine Operator Name | Role | Phone | [...] + + + | Closed | | Swing Type Lathe Operator | Diagnoses | Deidre Nguyen, | Ent | | | | | Shadi | [address] | Audiology Ppv | | | | | disease in | Perez Davin | [address] | | | | | heterozygous | [address] | [address] | | | | | female | [facility] [place] | Physician's | | | | | ([facility]) | [address] | Anjali, | | | | | Procedures | Phone: | 2nd floor | | | | | CONSULT TO | [phone] | [facility] [place] | | | | | AUDIOLOGY | Fax: | [address] | | | | | | [phone] | Phone: | | | | | | | [phone] | | | | | | | Fax: | | | | | | | [phone] | +--------+--------+ + + + + Encounter [...] | | | | [address] | [place] [address] | | | | | Physician's | [phone] | | | | | Anjali, [facility] floor | | | | | | [place], [place] | | | | | | [address] | | | | | | [phone] | | | +--------+ + + + [...] as of this encounter Progress Notes Heraclio Lux AuD,CCC-A - 01/07/2019 10:[address] [facility] Audiology Clinic NAME: Jarvis Miguel Date of : 1980 MR#: [id number] Primary Care Provider: Estiven Hallman DO Referral Source: Estiven Hallman DO [facility] Internal Medicin [address] [place] [address] Olivera: Sisters Date of Service: 01/07/19 AUDIOLOGY CLINIC Jarvis Miguel, 38 y.o., was seen for a comprehensive audiological evaluation today per Dr. Minerva Nguyen MD in the [facility] Metabolic Clinic. 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 A speech pension adviser threshold was obtained at 20 dB HL and is in good agreement with responses to pure-tone stimuli. Word recognition ability was 84% when words were presented at a comfortable level of 50 dB HL. Left Ear: A mostly mild SNHL. A speech pension adviser threshold was obtained at 30 dB HL and is in good agreement with responses to pure-tone stimuli. Word recognition ability was 100% when words were presented at a comfortable level of 60 dB HL. [facility]. A possible trial with bilateral amplification was discussed. Recommended annual audiograms to monitor for any further progression in hearing loss. Marcos LORENZO CCC-A documented in thi s encounter Plan of Treatment Not on filedocumented as of this encounter Procedures + +--------+ + + + | Procedure Name | Priori | Date/Time | Associated Diagnosis | Comments | | | ty | | | | + +--------+ + + + | HI COMPREHENSIVE | Routin | 01/08/2019 | Sensorineural [...]
--- OUTSIDE RECORDS SUMMARY | ~2020-02-07 | XMS | Encounter Summary ---
Demographics + + + | Address | [address] | | | [place] [address] | + + + | Home Phone [...] Team Providers + +------+ + | Care Rim Turning Machine Operator Name | Role | Phone [...] | | 2018 | on | at [facility] | B, SAFE AND VAULT MECHANIC [address] [facility] | management (updated | | | | [address] | [facility] | orders sent to PCP | | | | Josephine | [place], [place] | to [facility]) | | | | [facility] | [address] | | | | | 7th Floor [place], | [phone] | | | | | [place] [address] | | | | | | [phone] | | | +--------+ + + + [...]
--- OUTSIDE RECORDS SUMMARY | ~2020-02-07 | XMS | Encounter Summary ---
Demographics + + + | Address | [address] | | | [place] [address] | + + + | Home Phone | | + + + | Preferred Language | Unknown | + + + | Marital Status | Single | + + + | Temple Affiliation | Unknown | + + + [...] Team Providers + +------+ + | Care Cold Patcher Name | Role | Phone | + +------+ + | Christina Rain MD | PCP | | + +------+ + Encounter Details +--------+ + + + + | Date | Type | Department | Care Team | Description | +--------+ + + + + | 08/28/ | Telephone | [facility] at [facility] 7th | Fawad Muhammad, | | | 2009 | | Floor [address] | | | | | St Mailcode: [facility] | | | | | | [facility] [place], [place] | | | | | | [address] | | | | | | [phone] | | | +--------+ + + + [...]
--- OUTSIDE RECORDS SUMMARY | ~2020-02-07 | XMS | Encounter Summary ---
Demographics + + + | Address | [address] | | | [place] [address] | + + + | Home Phone [...] Phone | + + +---------+ + | oJhn Miguel | ECON | Unknown | | + + +---------+ + Care Team Providers + +------+ + | Care Biomedical Equipment Tech Name | Role | Phone | [...] | 04/28/ | Telephone | [facility] at [facility] 7th | Benny Hernandez MD | Medication | | 2013 | | Floor [address] | [address] | management | | | | St Mailcode: [facility] | [address] | | | | | [facility] [place] | [place], [place] | | | | | [address] | [address] | | | | | [phone] | [phone] | | | | | | | [...]
--- OUTSIDE RECORDS SUMMARY | ~2020-02-07 | XMS | Encounter Summary ---
Demographics + + + | Address | [address] | | | [place] [address] | + + + | Home Phone [...] Providers + +------+ + | Care Honey Grader And Blender Name | Role | Phone | + +------+ + | Lexx Estiven | PCP | | + +------+ + Encounter Details +--------+ + + + + | Date | Type | Department | Care Team | Description | +--------+ + + + + | 06/16/ | Document-Sc | Health Information | Unknown . | | | 2017 | anned | Services [id number] | | | | | | [address] | | | | | | Mailcode: [id number] | | | | | | [facility] | | | | | | [place], [place] | | | | | | [address] | | | | | | [phone] | | | +--------+ + + + [...] + +--------+ + + + | LAB REPORTS | | 06/16/2017 | | Results for this | | | | 12:00 AM | | procedure are in the | | | | PDT | | results section. | + +--------+ + + + documented in this encounter Results LAB REPORTS (06/16/2017 12:00 AM PDT) + + + | Narrative | Performed At | + + + | | | + + + documented in this encounter Visit Diagnoses Not on filedocumented in this encounter"
--- OUTSIDE RECORDS SUMMARY | ~2020-02-07 | XMS | Encounter Summary ---
Demographics + + + | Address | [address] | | | [place] [address] | + + + | Home Phone [...] Team Providers + +------+ + | Care Drop Hammer Operator Helper Name | Role | Phone | + [...] | [facility] at | W, PhD [address] | | | | | [facility] | [address] [place], [place] | | | | | [address] | [address] | | | | | Mailcode: [id number] | [phone] | | | | | [facility] | | | | | | and Healing, | | | | | | Building | | | | | | [place], [place] | | | | | | [address] | | | | | | [phone] | | | +--------+ + + + [...]
--- OUTSIDE RECORDS SUMMARY | ~2020-02-07 | XMS | Encounter Summary ---
Demographics + + + | Address | [address] | | | [place] [address] | + + + | Home Phone | | + + + | Preferred Language | Unknown | + + + | Marital Status | Single | + + + | Buddhist Affiliation | Unknown | + + + | Race | Unknown | + + + | Ethnic Group | Unknown | + + + Author + + + | Author | [facility] | | | and [place] | + + + | Organization | [facility] | | | and [place] | + + + | Address | Unknown | + + + | Phone | Unavailable | + + + Support + + + + + | Name | Relationship | Address | Phone | + + + + + | Jordyn Miguel | ECON | NONE | | | | | [place] [address] | | + + + + + | Jordyn Miguel | ECON | NONE | + | | | | [place] [address] | | + + + + + Care Team Providers + +------+ + | Care Reagent Tender Name | Role | Phone | + +------+ + | Estiven Hallman DO | PCP | | + +------+ + Encounter Details +--------+ + + + + | Date | Type | Department | Care Team | Description | +--------+ + + + + | 05/04/ | Abstract | [facility] [place] | Kieth Alexander, | | | 2017 | | PHYSIATRY [address] | MD [address] | | | | | [address] | [place], [place] | | | | | [place], [place] | [address] | | | | | [address] | | | | | | [phone] | | | +--------+ + + + [...]
--- OUTSIDE RECORDS SUMMARY | ~2020-02-07 | XMS | Encounter Summary ---
Demographics + + + | Address | [address] | | | [place] [address] | + + + | Home Phone [...] Providers + +------+ + | Care Head Soft Sugar Operator Name | Role | Phone | [...] | [facility] | | | with POCKET ASSEMBLER | | | | [facility] [address] | | | | | | | [address] | | | | | | | Center for | | | | | | | Health and | | | | | | | Healing, | | | | | | | [address] | | | | | | | [place], [place] | | | | | | | [address] | | | | | | | Phone: | | | | | | | [phone] | | | | | | | Fax: | | | | | | | [phone] | +--------+ + + + + + Encounter Details +--------+---------+ + + + | Date | Type | Department | Care Team | Description | +--------+---------+ + + + | 01/18/ | Office | [facility] | Venus Sal[address] | Morbid obesity, | | 2019 | Visit | Center at [facility] [address] | [address] | unspecified obesity | | | | [address] [facility] | Naty Isaacs [place], | type (HCC) (Primary | | | | for Health and | [place] [address] | Dx); DM type 2 | | | | Healing, Building [address] | | without retinopathy | | | | [facility] [place] | | ([facility]) | | | | [address] | | | | | | [phone] | | | +--------+---------+ + + + [...] + + + + | Weight | 149 kg (328 lb 6.4 | 01/18/2019 1:20 PM | | | | oz) | PDT | | + + + + + | Height | - | - | | + + + + + | Body Mass Index | 58.17 | 01/12/2019 9:43 AM | | | | | PDT | | + + + + + documented in this encounter Progress Notes Venus Saldana, RD - 01/18/2019 1:00 PM PDT Referring Provider: Estiven Hallman DO Outpatient Nutrition Clinic, Pre-Bariatric Surgery Visit Follow-up diet consult prior to having Nessa-En-Y gastric bypass surgery or Sleeve Gastrecto my. Documented Time of Visit: 1:18 to 1:47 (29 minutes [id number] with patient) SUBJECTIVE: More protein More water Less sugar Lost 20lbs with flu/strep/sinus infection Diet recall: B: Oatmeal plain or bagel with cream cheese L: wrap or nuts instead of a full lunch D: chicken - strir lundberg salad, cottage cheese S: peanuts or almonds or fruit Beverages: 1 soda (miranda 7up), diet teas, propel water Food Allergies: Yes - onions (hives, itching) Current Physical Activity: walking - most days. Chasing her granddaughter. Swimming next [facility] OBJECTIVE: Height: Ht Readings from Last 1 Encounters: 01/12/19 1.6 m (5' 3") Weight: Wt Readings from Last 2 Encounters: 01/18/19 149 kg (328 lb 6.4 oz) 01/12/19 147.4 kg (325 lb) 03/19/17 167.5 kg (369 lb 3.2 oz) BMI: Body mass index is 58.17 kg/m. Weight change since last nutrition appointment: lost ~41lbs Past Medical History: Past Medical History: Diagnosis [...] in Epic snap shot Medications for Diabetes: Lantus (40u), Victoza, Januvia. Lantus increased when sick. Is f ollowing up with PCP soon to revaluate regimen Dietary Supplements: MVI, Vit D Labs: see Results Review for current labs (if available). Nutrition Diagnosis: Morbid Obesity as evidenced by BMI of 58.17. Pre-Surgery Diet: -Eat within one hour of waking, then every 3-4 waking hours -Include protein with all meals & snacks -Use healthy plate model. Encouraged following low CHO diet, monitoring CBG's closely and following up with PCP if needing to adjust insulin. -Begin keeping daily food logs -Choose foods & beverages with < 14 g sugar & < 5 g fat per serving -Eliminate liquid calories and carbonation; limit caffeine to 16 oz/day -Begin fluids from meals. Nothing during and for 30 minutes after. -Sip fluids throughout the day, aim for 64 oz/day (non-caloric, non-caffeinated, non-carbo nated) -Begin practicing mindful eating Written Education Provided/Reviewed: Reviewed the bariatric surgery notebook with the patient, including post-surgery diet progr ession, sample menus, food items, and vitamin and mineral supplements needed after surgery. Emphasized the importance of a regular physical activity program of 30-60 minutes per day to maintain weight loss post-surgery. Patient's Comprehension: The patient is: Receptive Stage of change: Preparation Barrier(s) to education: No Learning style: Patient is a Visual learner/Verbal learner Expected Outcome: I think the patient will do moderately if following all lifestyle and be havioral changes discussed today. GOAL: The patient's goal is to have weight loss surgery to maintain weight loss and improve other health conditions. 1. Continue to practice behavioral changes to prepare for surgery. 2. Increase physical activity. 3. Review all information provided for post-surgery diet progression. 4. Call or send Percolate message to dietitian with any questions. Contact information was provided. Follow up with dietitian prior to surgery (1:1 visit or WM class) Venus Saldana RD, CNSC, LD [facility] Bariatrics [phone] documented in this enco unter Plan of Treatment Not on filedocumented as of this encounter Procedures + +--------+ + + + | Procedure Name | Priori | Date/Time | Associated Diagnosis | Comments | | | ty | | | | + +--------+ + + + | ORDERS OTHER | | 01/18/2019 | | Results for this | | | | 9:42 PM | | procedure are in the | | | | PDT | | results section. | + +--------+ + + + | CT MNT RE-ASSESSMNT | Routin | 01/18/2019 | DM type 2 without | | | X15MIN | e | 2:35 PM | retinopathy (HCC) | | | | | PDT | Morbid obesity, | | | | | | unspecified obesity | | | | | | type (HCC) | | + +--------+ + + + documented in this encounter Results ORDERS OTHER (01/18/2019 9:42 PM PDT) + + + | Narrative | [...]
--- OUTSIDE RECORDS SUMMARY | ~2020-02-07 | XMS | Encounter Summary ---
Demographics + + + | Address | [address] | | | [place] [address] | + + + | Home Phone [...] Team Providers + +------+ + | Care Shearing Supervisor Name | Role | Phone | [...] + + | 01/10/ | Documentati | [facility] at [facility] 7th | Marcellus Rodriguez MD | Prior Authorization | | 2017 | on | Floor [address] | [address] [facility] | Request - Medication | | | | St Mailcode: [facility] | [facility] | (Approved until | | | | [facility], [place] | [place], [place] | 09/14/17- [employer]) | | | | [address] | [address] | | | | | [phone] | [phone] | | | | | | | [...]
--- OUTSIDE RECORDS SUMMARY | ~2020-02-07 | XMS | Encounter Summary ---
Demographics + + + | Address | [address] | | | [place] [address] | + + + | Home Phone [...] Team Providers + +------+ + | Care Card Grinder Name | Role | Phone | + [...] [facility] | | | | Metabolic | 01/22/11 | Epic Dept | Metabolic | | | | | Sabina | | [address] | | | | | | | St | | | | | | | Mailcode: | | | | | | | [facility] | | | | | | | [facility] [place] | | | | | | | [address] | | | | | | | Phone: | | | | | | | [phone] | | | | | | | Fax: | | | | | | | [phone] | +--------+--------+ + + + + Encounter Details +--------+---------+ + + + | Date | Type | Department | Care Team | Description | +--------+---------+ + + + | 01/22/ | Office | [facility] at [facility] 7th | Michell Muhammad, | Fabry disease (HCC) | | 2010 | Visit | Floor [address] | (Primary Dx) | | | | St Mailcode: [facility] | | | | | | [facility] [place], [place] | | | | | | [address] | | | | | | [phone] | | | +--------+---------+ + + + [...] + + + | Blood Pressure | 111/77 | 01/22/2011 12:53 PM | | | | | PDT | | + + + + + | Pulse | 73 | 01/22/2011 12:53 PM | | | | | PDT [...] + + + + | Weight | 141.3 kg (311 lb 8.2 | 01/22/2011 12:53 PM | | | | oz) | PDT | | + + + + + | Height | - | - | | + + + + + | Body Mass Index | - | - | | + + + + + documented in this encounter Patient Instructions Patient Instructions Michell Muhammad MD - 01/22/2011 2:31 PM PDTWork with Shaina baron in Metabolic Clinic offices to help with insurance approval for Fabrazyme. [phone]. Will need PCPs office to help with that also. MICHELL MUHAMMAD MD Professor, Pediatrics and Molecular and Medical Genetics [facility], [place] [address] Email: [email or web address] documented in this encounter Progress Notes Chelsea Edwards PA-C - 01/22/2011 4:02 PM PDT CC/Patient Profile Jarvis is seen today by myself and Dr. 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 She is here with her mother, and her 11 month old son maru gates has an appointment today as well. Son was diagnosed with Fabry disease prenatally with the familial Fabry mutation. She comes today primarily to discuss treatment options for her Michael ry disease. HPI: Jarvis was last seen in the metabolic clinic 04/24/2010. At last visit, plan was to have deep ent restart Fabrazyme. This has not occurred yet relate to insurance and drug shortage issue s.. In the interim the symptoms she was experiencing at last visit have worsened. Regarding her Fabry disease she reports increased nausea and vomiting, with emesis occuring twice ottoniel y. + abdominal pain, and diarrhea. Her acroparesthesias of her hands and feet have also wors ened, and states she sometimes gets shooting pain in hyper-focused spots on her extremities. She reports she has increased weakness, as noted by her decreased ability to goes up stairs , and carry her 11 month old son or groceries around. Additionally, she has decreased stamin a, and increased fatigue, has tinnitus and is frequently cold. She feels all these symptoms are related to her Fabry. She indicates that worsening of symptoms is affecting her quality of life and ability to interact with her children. She continues to hope that she will be ab le to get back on Fabrazyme treatment for her Fabry disease. Patient has have an EKG/Echo 12/2009 She had an ophthalmologic exam 04/2010 Past Medical History Diagnosis Date Lipidoses 07/01/2005 Past Surgical History Procedure Date Cholecystectomy 11/2008 Appendectomy 04/2009 ruptured, hospitalized 21 days section 02/09/2010 emergency Tubal ligation 02/09/2010 Current Medication List Name Sig BUPROPION HCL SR 150 MG TAB Take 150 mg by mouth once daily. CIPROFLOXACIN 250 MG TAB Take 250 mg by mouth every twelve hours. IRON (FERROUS SULFATE) OR Take 1 tablet po every day LEVOMEFOLATE CALCIUM 15 MG TAB Take 15 mg by mouth once daily. PRAZOSIN 1 MG CAP Take 1 mg by mouth once daily. PROMETHAZINE 25 MG TAB Take 25 mg by mouth two times daily. ZIPRASIDONE 80 MG CAP Take 80 mg by mouth two times daily with meals. Allergies Allergen Reactions Sulfa (Sulfonamides) Clarification Needed PEN V K PE: BP 111/77 | Pulse 73 | Wt 141.3 kg (311 lb 8.2 oz) General: Alert, obese woman in no acute distress. HEENT: EOMI, PERRL. No papilledema or retinal vessel tortuosity visualized by fundoscopy. M ucosa pink and moist. No cervical lymphadenopathy. Pulm: CTA bilaterally CV: RRR, no murmurs, rubs or gallops/ Abd: Exam limited by patient habitus. Mild discomfort to deep palpation. No hepatosplenomeg savage noted. Extremities: Full ROM, no edema, cyanosis or clubbing. Neurologic: CN: EOMI, PERRL. No facial asymmetry. Uvula is midline, with tongue movements a re symmetric. DTRs: Patellar and achilles are 2+ bilaterally with no clonus. Impression: Young woman with Fabry disease, previously taking Fabrazyme. As stated in previous visit 6 months ago, it is appropriate to have Jarvis restart enzyme replacement therapy for the treat ment of her Fabry disease. She is symptomatic with her Fabry disease, with the worsening sym ptoms described in HPI above. We revisited the world-wide shortage of Fabrazyme at this give n time, but feel strongly that it would improve her symptoms and quality of life. We will co foreign to work with BRYCE Lakhani in our office to pursue Fabrazyme infusions for Kip pappas. We will do baseline laboratory testing (CMP, urine protein, etc) at this visit today to monitor some of the effects of her disease.. We discussed that most of her symptoms were co mpatible with Fabry disease. We discussed the decision to restart Fabrazyme. Jarvis's mother had a question about testing done on Jarvis when she was a child, and why it was negative. We dicussed how testing this long ago would have been looking at enzyme, rather than genetic s equencing. Recommendations: 1.Please go to lab today for labs: Bloodwork: lipid panel, CMP / Urine: UA, protein, album in: creatinine ratio 2. Restart enzyme replacement therapy with Fabrazyme at previous dose, previous infusion ce nter. 3. Recommend audiology examination, especially as tinnitus and hearing loss can be Fabry sy mptoms. 4. Recommend brain MRI, locally. 5. Recommend annual EKG and echocardiogram, locally. 5. Will obtain records from audio installer exam done 04/2010. 3. Follow up in metabolic clinic in six months given Jarvis's increased symptoms and restart ing medication. halfway, once Fabrazyme restarted, follow up may be ok annually, especiall y as patient lives [place] drive away in [facility]. WICHO YUSUF, PAHenrietta Counts Include [address] At [facility] [address] [facility], [facility] [phone] Email: [email or web address] MICHELL MUHAMMAD MD Professor, Pediatrics and Molecular and Medical Genetics [facility], [facility] [address] [place] [address] Email: [email or web address] aradise, Xenia - 01/13 12:59 PM PDTTaking something for bladder infection (to numb) does not know nameElectr onically signed by Xenia Herzog at 01/22/2011 12:59 PM PDTdocumented in this encounter Plan of Treatment + +------+--------+ + + | Name | Type | Priori | Associated Diagnoses | Order Schedule | | | | ty | | | + +------+--------+ + + | UA, DIPSTICK ONLY | Lab | Routin | Fabry disease | Ordered: 01/22/2011 | | | | e | (HCC) | | + +------+--------+ + + documented as of this encounter Results MICROALBUMIN/CREATININE RATIO (RANDOM URINE) (01/22/2011 2:48 PM [...] At | + + + | [facility] | [facility] | | [address] [place], [place] | REGIONAL | | [address] | LABORATORY | + + + + + + + + | Performing | Address | City/State/Zipcode | Phone Number | | Organization | | | | + + + + + | [facility] | [address] | [place] [address] | | | LABORATORY | | | [...] | + + + + + | [facility] | [address] | [place] [address] | | | PATHOLOGY | [address] [...] | | | DEPARTMENT | | | [place] | | | OF | | | [...] DEPARTMENT OF | [address] | [place] [address] | | | PATHOLOGY | [address] [...] | + + + + + | [facility] | [address] | [place] [address] | | | PATHOLOGY | [address] | | | + + + + + documented in this encounter Visit Diagnoses + + | Diagnosis | + + | Fabry disease (HCC) - Primary Lipidoses | + + documented in this encounter"
--- OUTSIDE RECORDS SUMMARY | ~2020-02-07 | XMS | Encounter Summary ---
Demographics + + + | Address | [address] | | | [place] [address] | + + + | Home Phone | | + + + | Preferred Language | Unknown | + + + | Marital Status | Single | + + + | Baptist Affiliation | Unknown | + + + | Race | Unknown | + + + | Ethnic Group | Unknown | + + + Author + + + | Author | [facility] | | | and Horaceana | + + + | Organization | [facility] | | | and [place]ace[place] | + + + | Address | Unknown | + + + | Phone | Unavailable | + + + Support + + + + + | Name | Relationship | Address | Phone | + + + + + | Jordyn Miguel | ECON | NONE | | | | | [place] [address] | | + + + + + | Jordyn Miguel | ECON | NONE | + | | | | [place] [address] | | + + + + + Care Team Providers + +------+ + | Care Coremaking Machine Setter Name | Role | Phone | + +------+ + | Estiven Hallman DO | PCP | | + +------+ + Encounter Details +--------+ + + + + | Date | Type | Department | Care Team | Description | +--------+ + + + + | 05/04/ | Abstract | [facility] [place] | Keith Alexander, | | | 2017 | | PHYSIATRY [address] | MD [address] | | | | | [address] | [place], [place] | | | | | [place], [place] | [address] | | | | | [address] | | | | | | [phone] | | | +--------+ + + + [...]
--- OUTSIDE RECORDS SUMMARY | ~2020-02-07 | XMS | Encounter Summary ---
Demographics + + + | Address | [address] | | | [place] [address] | + + + | Home Phone [...] Team Providers + +------+ + | Care Loft Patternmaker Name | Role | Phone | [...] | 06/17/ | Telephone | [facility] 7th | Deana Jimenez MD | Other (not specified | | 2015 | | Floor [address] | [address] | ) | | | | St Mailcode: [facility] | [facility], | | | | | [facility], [place] | [place] [address] | | | | | [address] | [phone] | | | | | [phone] | | | +--------+ + + + [...]
--- OUTSIDE RECORDS SUMMARY | ~2020-02-07 | XMS | Encounter Summary ---
Demographics + + + | Address | [address] | | | [place] [address] | + + + | Home Phone [...] Team Providers + +------+ + | Care Wood Router Hand Name | Role | Phone | + +------+ + | Gavinolizandro Estiven | PCP | | + +------+ + Encounter Details +--------+ + + + + | Date | Type | Department | Care Team | Description | +--------+ + + + + | 04/09/ | MyChart | [facility] at [facility] 7th | Deidre Nguyen MD | JOSE ANTONIO group | | 2018 | Encounter | Floor [address] | [address] | | | | | St Mailcode: [facility] | Naty Isaacs [place], | | | | | [facility] [place], [place] | [place] [address] | | | | | [address] | [phone] | | | | | [phone] | | | +--------+ + + + [...]
--- OUTSIDE RECORDS SUMMARY | ~2020-02-07 | XMS | Encounter Summary ---
Demographics + + + | Address | [address] | | | [place] [address] | + + + | Home Phone [...] Team Providers + +------+ + | Care Fire Eater Name | Role | Phone | + +------+ + PCP | Unavailable | + +------+ + Encounter Details +--------+ + + + + | Date | Type | Department | Care Team | Description | +--------+ + + + + | 04/30/ | Results | [facility] at [facility] 7th | Fawad Muhammad, | | | 2003 | Only | Floor [address] | | | | | St Mailcode: [facility] | | | | | | [facility] [place], [place] | | | | | | [address] | | | | | | [phone] | | | +--------+ + + + [...] [facility] | | | | | | [facility] | | | | | | Laboratories. | | | | + + + + + + + + | Specimen | + + | | + + + + + + + | Performing | Address | City/State/Zipcode | Phone Number | | Organization | | | | + + + + + | [facility] | [address] | [place] [address] | | | LABORATORY | | | [...] | uIU/ml | | | | | [facility] | | | | | | Laboratories. | | | | + + + + + + + + | Specimen | + + | | + + + + + + + | Performing | Address | City/State/Zipcode | Phone Number | | Organization | | | | + + + + + | [facility] | [address] | [place] [address] | | | LABORATORY | | | [...] DEPARTMENT OF | [address] | [place] [address] | | | PATHOLOGY | [address] | | | + + + + + | [facility] DEPARTMENT OF | [address] | [place], [place] [address] | | | PATHOLOGY | [address] [...] + + + | [facility] DEPARTMENT OF | [address] | [place] [address] | | | PATHOLOGY | [address] | | | + + + + + | [facility] DEPARTMENT OF | [address] | [place] [address] | | | PATHOLOGY | [address] [...] + + + | [facility] DEPARTMENT OF | [address] | [place] [address] | | | PATHOLOGY | [address] | | | + + + + + | [facility] DEPARTMENT OF | [address] | [place] [address] | | | PATHOLOGY | [address] [...] | + + + + + | [facility] | [address] | [place] [address] | | | PATHOLOGY | [address] | | | + + + + + | [facility] | [address] [place] [address] | [place] [address] | | | PATHOLOGY | [address] [...] + + + | [facility] DEPARTMENT OF | [address] | [place] [address] | | | PATHOLOGY | [address] | | | + + + + + | [facility] OF | [address] | [place] [address] | | | PATHOLOGY | [address] [...] UG/G | | | | | | BUSINESS PROCESS MODELER | | | | | + + [...] [facility] | [address] | [place], [place] | | | [facility] | | [address] | | + + + + + documented in this encounter Visit Diagnoses Not on filedocumented in this encounter"
--- OUTSIDE RECORDS SUMMARY | ~2020-02-07 | XMS | Encounter Summary ---
Demographics + + + | Address | [address] | | | [place] [address] | + + + | Home Phone [...] Team Providers + +------+ + | Care Payable Representative Name | Role | Phone | [...] | 01/10/ | Documentati | [facility] at [facility] 7th | Marcellus Rodriguez MD | Prior Authorization | | 2017 | on | Floor [address] | [address] [facility] | Request - Medication | | | | St Mailcode: [facility] | [facility] | (Approved until | | | | [facility], [place] | [place], [place] | 09/14/17- [employer]) | | | | [address] | [address] | | | | | [phone] | [phone] | | | | | | | [...]
--- OUTSIDE RECORDS SUMMARY | ~2020-02-07 | XMS | Encounter Summary ---
Demographics + + + | Address | [address] | | | [place] [address] | + + + | Home Phone [...] + + + | Author | [facility] | + + + | Organization | [facility] | + + + | Address | Unknown | + + + | Phone | Unavailable | + + + Support + + +---------+ + | Name | Relationship | Address | Phone | + + +---------+ + | John Miguel | ECON | Unknown | | + + +---------+ + Care Team Providers + +------+ + | Care Promotions Assistant Name | Role | Phone | [...] [facility] | | | | Metabolic | 09/24/11 | Epic Dept | Metabolic | | | | | [place] | | [address] | | | | | 07/28/12 | | St | | | | | [place] | | Mailcode: | | | | | | | [facility] | | | | | | | [place], [place] | | | | | | | [address] | | | | | | | Phone: | | | | | | | [phone] | | | | | | | Fax: | | | | | | | [phone] | +--------+--------+ + + + + Encounter Details +--------+---------+ + + + | Date | Type | Department | Care Team | Description | +--------+---------+ + + + | 12/23/ | Office | [facility] at [facility] 7[facility] | Michell Muhammad, | Fabry disease (HCC) | | 2011 | Visit | Floor [address] MD | (Primary Dx) | | | | St Mailcode: [facility] | | | | | | [facility] [place], [place] | | | | | | [address] | | | | | | [phone] | | | +--------+---------+ + + + [...] + + + | Blood Pressure | 120/85 | 12/24/2011 1:18 PM | | | | | PDT | | + + + + + | Pulse | 96 | 12/24/2011 1:18 PM | | | | | PDT [...] + + + + | Weight | 148.5 kg (327 lb 6.1 | 12/24/2011 1:18 PM | | | | oz) | PDT | | + + + + + | Height | - | - | | + + + + + | Body Mass Index | - | - | | + + + + + documented in this encounter Patient Instructions Patient Instructions Chelsea Edwards PA-C - 12/24/2011 2:46 PM PDTIt was nice to see you again. Please return to clinic in 6 months. Please go to lab today for labs: Bloodwork: lipid panel, CMP / Urine: UA, protein, albumin: creatinine ratio. Will provide instructions for 24 hour collection Recommend brain MRI, locally Recommend annual EKG and echocardiogram, locally. - documented in this encounter Progress Notes Chelsea Edwards PA-C - 12/24/2011 2:16 PM PDT NEW PATIENT CLINIC NOTE, METABOLIC CLINIC Author: CHELSEA EDWARDS PA-C and Michell Muhammad M.D. 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 Muhammad in metabol ic clinic for routine follow up. HPI: Jarvis was last seen in the metabolic clinic 01/22/2011. At visit 04/24/2010, plan was to have patient restart Fabrazyme. This has still not occurred due to paperwork issues and ins urance according to the patient. In the interim the symptoms she was experiencing at last vi sit have worsened. Regarding her Fabry disease she reports continued abdominal pain. Also, h er acroparesthesias of her hands and feet has worsened, and states she sometimes gets shooti ng pain in hyper-focused spots on her extremities. She reports she has increased weakness, a s noted by her decreased ability to goes up stairs, and carry her toddler son or groceries a round. Additionally, she has decreased stamina, and increased fatigue. These symptoms are re lated to her Fabry. She indicates that worsening of symptoms is affecting her quality of lif e and ability to interact with her children. She continues to hope that she will be able to get back on Fabrazyme treatment for her Fabry disease. New symptom of chest pain for the last two months, on and off, but near daily frequency. Pa in is sharp, and radiates into her left arm. Seems to be exertional, and does not occur at r est. Is improved with rest, when symptoms are bad. Saw her PCP Dr. Rain who noted there m ight be some interaction between some medications she was on (Wellbutrin and another medicat ion). She stopped taking these both yesterday. Has an appointment next week with cardiologis t Dr. Scruggs for further evaluation. Last ECHO and EKG in 11/2009, and last eye exam in 04/2010. Past Medical History Diagnosis Date Lipidoses 07/01/2005 Past Surgical History Procedure Date Cholecystectomy 11/2008 Appendectomy 04/2009 ruptured, hospitalized 21 days section 02/09/2010 emergency Tubal ligation 02/09/2010 History Social History Marital Status: Single Spouse Name: N/A Number of Children: N/A Years of Education: N/A Occupational History Not on file. Social History Main Topics Smoking status: Never Smoker Smokeless tobacco: Never Used Alcohol Use: Not on file Drug Use: Not on file Sexually Active: Not on file Other Topics Concern Not on file Social History Narrative No narrative on file Allergies Allergen Reactions Clarification Needed PEN V K Sulfa (Sulfonamide Antibiotics) Current Medication List Name Sig AMITRIPTYLINE 25 MG TAB Take 25 mg by mouth once daily at bedtime. IRON (FERROUS SULFATE) OR Take 1 tablet po every day LEVOMEFOLATE CALCIUM 15 MG TAB Take 15 mg by mouth once daily. PRAZOSIN 1 MG CAP Take 1 mg by mouth once daily. PROMETHAZINE 25 MG TAB Take 25 mg by mouth two times daily. TRAZODONE 100 MG TAB Take 100 mg by mouth once daily at bedtime. ZIPRASIDONE 80 MG CAP Take 80 mg by mouth two times daily with meals. PHYSICAL EXAM: Vitals: Wt 148.5 kg (327 lbs 6.1 oz)( < 3 %ile), BP 120/85, Pulse 96. General Appearance: Obese pleasant female in NAD. HEENT: EOMI, PERRL, fundoscopic exam WNL: no papilledema or retinal vesseltortuosity noted. Mucus membranes pink and moist. No LAD or thyromegaly. Respiratory: CTA bilaterally A/P/L CV: RRR, no murmurs, rubs or gallops. GI: Exam limited by patient habitus. Mild discomfort to deep palpation. No hepatosplenomega ly noted. MS: Extremities: Full ROM, muscle strenth 5/5 in upper and lower extremities. No edema, cyanosi s or clubbing. Neurologic: CN: II-XII grossly intact. No facial asymmetry. DTRs: Patellar and achilles are 2+ bilaterally with no clonus. Cerebellar function intact by finger-to -nose test, and heel -to-bowman. Gait normal. 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 As stated in the last two visits, Jarvis should be restarted on enz yme replacement therapy with FAbrazyme as soon as possible for the treatment of her Fabry di sease. She is symptomatic with her Fabry disease, with progressively worsening symptoms desc ribed in HPI above. [employer] shortage is no longer an issue. We will have BRYCE Lakhani, and nurse coordinator in our program contact to help with paper work. We will do labor atory testing (CMP, urine protein, etc) at this visit today to monitor some of the effects o f her disease, and also to serve as baseline tests with restarting Fabrazyme. We discussed t hat most of her symptoms were compatible with Fabry disease, with the exception of her chest pain.We discussed that this pain was concerning, especially since it is exertional. We are glad she will be seeing a automatic glove former next week, but also urged her to go to the em ergency room with symptoms of severe chest pain at any point prior to her appointment. We di scussed the decision to restart Fabrazyme, and she agrees that it could be of benefit for he r quality of life. Recommendations: 1. Restart enzyme replacement therapy with Fabrazyme at previous dose.. 2. To lab today for labs: Bloodwork: lipid panel, CMP / Urine: UA, protein, albumin: creati nine ratio 3. 24 hour urine collection, locally: supply kit and orders provided to patient. 4. Recommend brain MRI, locally. 5. Recommend annual EKG and echocardiogram, locally. 6. Follow up in metabolic clinic in six months given Jarvis's increased symptoms and since s he will be restarting medication. 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 CHELSEA EDWARDS, WICHO, PA-C [facility] [place] [id number] [facility], [place] [address] MICHELL MUHAMMAD MD Professor, Pediatrics and Molecular and Medical Genetics [facility], [address] [address] Email: [email or web address] documented in this en counter Plan of Treatment + +------+--------+ + + | Name | Type | Priori | Associated Diagnoses | Order Schedule | | | | ty | | | + +------+--------+ + + | CREATININE, URINE | Lab | Routin | Fabry disease | Ordered: 12/24/2011 | | | | e | ([facility]) | | + +------+--------+ + + | PROTEIN, URINE | Lab | Routin | Fabry disease | Ordered: 12/24/2011 | | | | e | (HCC) | | + +------+--------+ + + documented as of this encounter Results LIPID SET (TRIG, T CHOL, HDL, CALC LDL) (12/24/2011 3:20 PM PDT) + + + + + + | Component | Value | Ref Range | Performed | Pathologist | | | | | At | Signature | + + + + + + | CHOLESTEROL | 198Comment: | <200 mg/dL | [facility] | | [...] + + + + | TRIGLYCERID | 117Comment: | <150 mg/dL | [facility] | | [...] + + + + | HDL | 51Comment: HDL | >40 mg/dL | [facility] | | | CHOLESTEROL | Reference Range: | | DEPARTMENT | | | | High | | OF | | | | Risk: <40 | | PATHOLOGY | | | | Desirable: | | | | | | >=60 | | | | + + + + + + | LDL | 124 (H) | <100 mg/dL | [facility] | | | CHOLESTEROL | | | DEPARTMENT | | | , | | | OF | | | CALCULATED | | | PATHOLOGY | | + + + + + + | VLDL | 23 | <31 mg/dL | [facility] | | | CHOLESTEROL | | | DEPARTMENT | | | , | | | OF | | | CALCULATED | | | PATHOLOGY | | + + + + + + | NON-HDL | 147 (H)Comment: non-HDL | <130 mg/dL | [facility] | [...] | + + + + + | [facility] | [address] | [place] [address] | | | PATHOLOGY | [address] | | | + + + + + COMPLETE METABOLIC SET (NA,K,CL,CO2,BUN,CREAT,GLUC,CA,AST,ALT,BILI TOTAL,ALK PHOS,ALB,PROT TOTAL) (12/24/2011 3:20 PM PDT) + + + + + + | Component | Value | Ref Range | Performed | Pathologist | | | | | At | Signature | + + + + + + | GLUCOSE, | 99 | 60 - 99 mg/dL | [facility] | | | PLASMA | | | [...] + + + + | CREATININE | 0.76 | 0.60 - 1.10 | [facility] | | | PLASMA | | mg/dL | DEPARTMENT | | | (LAB) | | | OF | | | | | | PATHOLOGY | | + + + + + + | TOTAL | 7.3 | 6.1 - 7.9 g/dL | [facility] [...] + + + + | CALCIUM, | 9.5 | 8.6 - 10.2 | [facility] | | | PLASMA | | mg/dL | DEPARTMENT | | | (LAB) | | | OF | | | | | | PATHOLOGY | | + + + + + + | BILIRUBIN | 0.6 | 0.3 - 1.2 mg/dL | [facility] | | | TOTAL | | | DEPARTMENT | | | | | | OF | | | | | | PATHOLOGY | | + + + + + + | ALK PHOS | 107 (H) | 42 - 98 U/L | [facility] | | | | | | DEPARTMENT | | | | | | OF | | | | | | PATHOLOGY | | + + + + + + | AST(SGOT) | 41 | 15 - 41 U/L | [facility] | | | | | | DEPARTMENT | | | | | | OF | | | | | | PATHOLOGY | | + + + + + + | SODIUM, | 139 | 134 - 143 | [facility] | | | PLASMA | | mmol/L | DEPARTMENT | | | (LAB) | | | OF | | | | | | PATHOLOGY | | + + + + + + | POTASSIUM, | 4.0 | 3.4 - 5.0 | [facility] | | | PLASMA | | mmol/L | DEPARTMENT | | | (LAB) | | | OF | | | | | | PATHOLOGY | | + + + + + + | CHLORIDE, | 105 | 97 - 108 mmol/L | [facility] | | | PLASMA | | | DEPARTMENT | | | (LAB) | | | OF | | | | | | PATHOLOGY | | + + + + + + | TOTAL CO2, | 28 | 22 - 29 mmol/L | [facility] | | | PLASMA | | | DEPARTMENT | | | (LAB) | | | OF | | | | | | PATHOLOGY | | + + + + + + | ALT (SGPT) | 45 | 13 - 48 U/L | [facility] | | | | | | DEPARTMENT | | | | | | OF | | | | | | PATHOLOGY | | + + + + + + | EGFR | > 60 | >60 mL/min | [facility] | | | - | | | DEPARTMENT | | | VINCENTIAN | | | OF | | | [...] | + + + + + | [facility] | [address] | [place] [address] | | | PATHOLOGY | [address] | | | + + + + + UA, DIPSTICK ONLY (12/24/2011 3:20 PM PDT) + + + + + [...] + + + + | APPEARANCE | Mod.Cldy (A) | | [facility] | | | | | | DEPARTMENT | | | | | | OF | | | | | | PATHOLOGY | | + + + + + + | GLUCOSE(UR) | Negative | Neg-Trace mg/dL | [facility] | | | | [...] + + | PROTEIN(LAB | Negative | Neg-Trace mg/dL | [facility] | | | ) | | | DEPARTMENT | | | | | | OF | | | | | | PATHOLOGY | | + + + + + + | UROBILINOGE | 1.0 (A) | 0 - 0.2 RHONA | [facility] [...] | + + + + + | [facility] | [address] | [place] [address] | | | PATHOLOGY | [address] | | | + + + + + CREATININE, URINE (12/24/2011 3:20 PM PDT) + +--------+ + + + | Component | Value | Ref Range | Performed | Pathologist | | | | | At | Signature | + +--------+ + + + | CREATININE | 223.38 | mg/dL | [facility] | | | CONC UR | | | DEPARTMENT | | | [...] | + + + + + | [facility] DEPARTMENT OF | [address] | [place] [address] | | | PATHOLOGY | [address] | | | + + + + + PROTEIN, URINE (12/24/2011 3:20 PM PDT) + +-------+ + + + | Component | Value | Ref Range | Performed | Pathologist | | | | | At | Signature | + +-------+ + + + | PROTEIN | 160 | mg/L | [facility] | | | CONC URINE | | | DEPARTMENT | | | | | | OF | | | | | | PATHOLOGY | | + +-------+ + + + | PROTEIN/CRE | 0.07 | <0.10 mg/mg | [facility] | | | ATININE | | | DEPARTMENT | | | RATIO | | | OF | | | | | | PATHOLOGY | | + +-------+ + + + + + | Specimen | + + | Urine - Urine | + + + + + + + | Performing | Address | City/State/Zipcode | Phone Number | | Organization | | | | + + + + + | [facility] | [address] | [place] [address] | | | PATHOLOGY | [address] | | | + + + + + documented in this encounter Visit Diagnoses + + | Diagnosis | + + | Fabry disease (HCC) - Primary Lipidoses | + + documented in this encounter"
--- OUTSIDE RECORDS SUMMARY | ~2020-02-07 | XMS | Encounter Summary ---
Demographics + + + | Address | [address] | | | [place] [address] | + + + | Home Phone [...] Team Providers + +------+ + | Care Hardware Designer Name | Role | Phone | + +------+ + | Estiven Hallman DO | PCP | | + +------+ + Encounter Details +--------+ + + + + | Date | Type | Department | Care Team | Description | +--------+ + + + + | 04/03/ | MyChart | [facility] | Alda Marie | Recommendations | | 2019 | Encounter | [facility] at | W, PhD [address] | | | | | [facility] | [address] [facility] [place] | | | | | [address] | [address] | | | | | Mailcode: CH15P | [phone] | | | | | [facility] | | | | | | and Healing, | | | | | | | | | | | | Floor [place], [place] | | | | | | [address] | | | | | | [phone] | | | +--------+ + + + [...]
--- OUTSIDE RECORDS SUMMARY | ~2020-02-07 | XMS | Encounter Summary ---
Demographics + + + | Address | [address] | | | [place] [address] | + + + | Home Phone [...] Team Providers + +------+ + | Care Interlocking And Signal Mechanic Name | Role | Phone | + +------+ + | Florian Martinez I | PCP | Unavailable | + +------+ + Encounter Details +--------+ + + + + | Date | Type | Department | Care Team | Description | +--------+ + + + + | 07/14/ | Letter-De [facility] | | Letter, Clinic | Letters | | 2006 | scribed | | | | +--------+ [...] as of this encounter Progress Notes Interface, Rivet Tosser In - 07/16/2006 2:32 AM PST [id number] 07/14/2006 07/14/2006 [id number] [id number] [address], [place] [id number] or July 14, 2006 Florian fela RE: JARVIS ENRIQUE MR #: [id number] Dear Dr. Martinez: We saw your patient, Jarvis Enrique, in the Metabolic Clinic at [facility] on July 14, 2006. I saw Jarvis together with Torres Crawford M.D., pediatric resident. We saw and examined Jarvis together. Our findings are accurately documented in her note. We discussed the case together. Dr. Martinez, thanks so much for allowing me to participate in the care of your patient, Jarvsi Enrique. Please feel free to call, write, or e-mail if you have any questions or wish to discuss her care. Sincerely, Fawad Muhammad M.D. Telephoto Installer of Pediatrics and Molecular Medical Genetics e-mail:[email or web address] / [id number] / [id number] / [id number] / [id number] documented i n this encounter Plan of Treatment Not on filedocumented as of this encounter Visit Diagnoses Not on filedocumented in this encounter"
--- OUTSIDE RECORDS SUMMARY | ~2020-02-07 | XMS | Encounter Summary ---
Demographics + + + | Address | [address] | | | [place] [address] | + + + | Home Phone [...] Team Providers + +------+ + | Care Engineer Third Assistant Name | Role | Phone | + +------+ + PCP | Unavailable | + +------+ + Encounter Details +--------+ + + + + | Date | Type | Department | Care Team | Description | +--------+ + + + + | 07/01/ | Abstract | [facility] at [facility] 7th | Fawad Muhammad, | | | 2004 | | [address] | | | | | [address] Mailcode: [facility] | | | | | | [facility] [place], [place] | | | | | | [address] | | | | | | [phone] | | | +--------+ + + + [...]
--- OUTSIDE RECORDS SUMMARY | ~2020-02-07 | XMS | Encounter Summary ---
Demographics + + + | Address | [address] | | | [place] [address] | + + + | Home Phone | | + + + | Preferred Language | Unknown | + + + | Marital Status | Single | + + + | Alevism Affiliation | Unknown | + + + | Race | White | + + + | Ethnic Group | Not or | + + + Author + + + | Author | [facility] | + + + | Organization | [facility] | + + + | Address | Unknown | + + + | Phone | Unavailable | + + + Support + + +---------+ + | Name | Relationship | Address | Phone | + + +---------+ + | John Miguel | ECON | Unknown | | + + +---------+ + Care Team Providers + +------+ + | Care Pasteurizer Helper Name | Role | Phone | + +------+ + | Lexx Estiven DO | PCP | | + +------+ + Encounter Details +--------+ + + + + | Date | Type | Department | Care Team | Description | +--------+ + + + + | 02/07/ | Abstract | Dig[facility]ive Health | Clinic, Surgery | | | 2016 | | [place] [facility] [address] | | | | | | [address] | | | | | | Mailcode: [place] | | | | | | for Health and | | | | | | Healing, Building [address] | | | | | | [place], [place] | | | | | | [address] | | | | | | [phone] | | | +--------+ + + + [...]
--- OUTSIDE RECORDS SUMMARY | ~2020-02-07 | XMS | Encounter Summary ---
Demographics + + + | Address | [address] | | | [place] [address] | + + + | Home Phone [...] Team Providers + +------+ + | Care Solar Installation Foreman Name | Role | Phone | + +------+ + | Lexx Estiven | PCP | | + +------+ + Reason for Visit + + + | Reason | Comments | + + + | Medication | needs new orders | | management | | + + + Encounter Details +--------+ + + + + | Date | Type | Department | Care Team | Description | +--------+ + + + + | 03/06/ | Telephone | [facility] at [facility] | Deidre Nguyen MD | Medication | | 2018 | | Floor [address] | [address] | management (needs | | | | St Mailcode: [facility] | Naty Isaacs [place], | carlin briceno ) | | | | [place], [place] | [place] [address] | | | | | | [phone] | | | | | [phone] | | | +--------+ + + + [...]
--- OUTSIDE RECORDS SUMMARY | ~2020-02-07 | XMS | Encounter Summary ---
Demographics + + + | Address | [address] | | | [place] [address] | + + + | Home Phone [...] | 11/29/ | Telephone | [facility] at [facility] 7th | Shaina Barrett | | | 2009 | | Floor [address] | | | | | St Mailcode: [facility] | | | | | | [facility] [place], [place] | | | | | | [address] | | | | | | [phone] | | | +--------+ + + + [...]
--- OUTSIDE RECORDS SUMMARY | ~2020-02-07 | XMS | Encounter Summary ---
Demographics + + + | Address | [address] | | | [place] [address] | + + + | Home Phone [...] + + + | Author | [facility] | + + + | Organization | [facility] | + + + | Address | Unknown | + + + | Phone | Unavailable | + + + Support + + +---------+ + | Name | Relationship | Address | Phone | + + +---------+ + | John Miguel | ECON | Unknown | | + + +---------+ + Care Team Providers + +------+ + | Care Cost Estimating Clerk Name | Role | Phone | + +------+ + | Lexx Estiven | PCP | | + +------+ + Encounter Details +--------+ + + + + | Date | Type | Department | Care Team | Description | +--------+ + + + + | 02/04/ | Book Reviewer | Digestive Health | Kathleen Canchola, | | | 2017 | | Center at [facility] [address] | [facility] [address] | | | | | [address] | Ave [facility] [place] | | | | | Mailcode: [place] | [address] | | | | | for Health and | [phone] | | | | | [facility] [address] | | | | | | [facility] [place] | | | | | | [address] | | | | | | | [...]
--- OUTSIDE RECORDS SUMMARY | ~2020-02-07 | XMS | Encounter Summary ---
Demographics + + + | Address | [address] | | | [place] [address] | + + + | Home Phone [...] Team Providers + +------+ + | Care National Facilities Manager Name | Role | Phone | [...] as of this encounter Progress Notes Interface, Stippler In - 04/14/2005 8:10 AM PDT [place] [address] [place] [address] or April 30, 2004 Tera Delarosa M.D. [address] [address] RE: JARVIS ENRIQUE MR #: [id number] Dear Dr. Delarosa: We saw your patient Jarvis Enrique in the Metabolic Clinic at [facility] on April 30, 2004. As you [...] was also seen by Lucio Cheng, research reference assistant for enrollment in the Fabry Database Registry. Mine was primarily a counseling visit. I spent 60 minutes in [id number] contact with Ms. Enrique, more than half [...] discuss her care. Sincerely, Fawad Muhammad M.D. [facility] of Pediatrics and Molecular Medical Genetics e-mail:[email or web address] / [email or web address] [id number] [email or web address] [id number] / Tdocumented in this encounter Plan of Treatment Not on filedocumented as of this encounter Visit Diagnoses Not on filedocumented in this encounter"
--- OUTSIDE RECORDS SUMMARY | ~2020-02-07 | XMS | Encounter Summary ---
Demographics + + + | Address | [address] | | | [place] [address] | + + + | Home Phone [...] Team Providers + +------+ + | Care Early Childhood Specialist Name | Role | Phone | + +------+ + | Lexx Estiven | PCP | | + +------+ + Reason for Visit + + + | Reason | Comments | + + + | Medication | home infusions? | | management | | + + + Encounter Details +--------+ + + + + | Date | Type | Department | Care Team | Description | +--------+ + + + + | 07/31/ | Telephone | [facility] at [facility] | Marcellus Rodriguez MD | Medication | | 2015 | | Floor [address] [facility] | [address] [facility] | management (home | | | | St Mailcode: [facility] | Davin Naty | infusions?) | | | | [place], [place] | [place], [place] | | | | | [address] | [address] | | | | | [phone] | [phone] | | | | | | | [...]
--- OUTSIDE RECORDS SUMMARY | ~2020-02-07 | XMS | Encounter Summary ---
Demographics + + + | Address | [address] | | | [place] [address] | + + + | Home Phone | | + + + | Preferred Language | Unknown | + + + | Marital Status | Single | + + + | Baptism Affiliation | Unknown | + + + [...] Team Providers + +------+ + | Care Receiving Operator Name | Role | Phone | [...] | 11/01/ | Telephone | [facility] at [facility] 7th | Fawad Muhammad, | Medication | | 2010 | | Floor [address] | management (ERT | | | | St Mailcode: [facility] | | available) | | | | [place], [place] | | | | | | [address] | | | | | | [phone] | | | +--------+ + + + [...]
--- OUTSIDE RECORDS SUMMARY | ~2020-02-07 | XMS | Encounter Summary ---
Demographics + + + | Address | [address] | | | [place] [address] | + + + | Home Phone [...] Team Providers + +------+ + | Care Appliance Tester Name | Role | Phone | + +------+ + | Lexx Estiven | PCP | | + +------+ + Encounter Details +--------+ + + + + | Date | Type | Department | Care Team | Description | +--------+ + + + + | 09/03/ | Telephone | [facility] at [facility] 7th | Shaina Barrett | | | 2016 | | Floor [address] | | | | | St Mailcode: [facility] | | | | | | [facility] [place], [place] | | | | | | [address] | | | | | | [phone] | | | +--------+ + + + [...]
--- OUTSIDE RECORDS SUMMARY | ~2020-02-07 | XMS | Encounter Summary ---
Demographics + + + | Address | [address] | | | [place] [address] | + + + | Home Phone [...] Team Providers + +------+ + | Care Analysis Specialist Name | Role | Phone | + +------+ + | Christina Rain MD | PCP | | + +------+ + Encounter Details +--------+ + + + + | Date | Type | Department | Care Team | Description | +--------+ + + + + | 04/23/ | Telephone | [facility] at [facility] 7th | Fawad Muhammad, | | | 2010 | | Floor [address] | | | | | St Mailcode: [facility] | | | | | | [facility] [place], [place] | | | | | | [address] | | | | | | [phone] | | | +--------+ + + + [...]
--- OUTSIDE RECORDS SUMMARY | ~2020-02-07 | XMS | Encounter Summary ---
Demographics + + + | Address | [address] | | | [place] [address] | + + + | Home Phone | | + + + | Preferred Language | Unknown | + + + | Marital Status | Single | + + + | Methodist Affiliation | Unknown | + + + [...] Team Providers + +------+ + | Care Harbor Police Lieutenant Name | Role | Phone | + +------+ + | Lexx Estiven | PCP | | + +------+ + Encounter Details +--------+ + + + + | Date | Type | Department | Care Team | Description | +--------+ + + + + | 01/11/ | Telephone | [facility] at [facility] 7th | Shaina Barrett | | | 2013 | | Floor [address] | | | | | St Mailcode: [facility] | | | | | | [facility] [place], [place] | | | | | | [address] | | | | | | [phone] | | | +--------+ + + + [...]
--- OUTSIDE RECORDS SUMMARY | ~2020-02-07 | XMS | Encounter Summary ---
Demographics + + + | Address | [address] | | | [place] [address] | + + + | Home Phone [...] Team Providers + +------+ + | Care Postal Support Employee Name | Role | Phone | + [...] | [facility] | | | with [employer] | | | | [address] | | | | | | | [address] | | | | | | | Center for | | | | | | | Health and | | | | | | | Healing, | | | | | | | Building 2 | | | | | | | [place], [place] | | | | | | | [address] | | | | | | | Phone: | | | | | | | [phone] | | | | | | | Fax: | | | | | | | [phone] | +--------+ + + + + + Encounter Details +--------+---------+ + + + | Date | Type | Department | Care Team | Description | +--------+---------+ + + + | 01/18/ | Office | Digestive Health | [address] | Morbid obesity, | | 2019 | Visit | Center at [facility] [address] | [address] | unspecified obesity | | | | [facility] | Naty Isaacs [place], | type (HCC) (Primary | | | | for Health and | [place] [address] | Dx); DM type 2 | | | | Healing, Building 2 | | without retinopathy | | | | [facility] [place] | | ([facility]) | | | | [address] | | | | | | [phone] | | | +--------+---------+ + + + [...] of Visit: 1:18 to 1:47 (29 minutes hkxj-bv-[id number] with patient) SUBJECTIVE: More protein More water [...] days. Chasing her granddaughter. Swimming next m [place] OBJECTIVE: Height: Ht Readings from Last 1 [...] post-surgery diet progression. 4. Call or send [employer] message to dietitian with any questions. Contact information was provided. Follow up with dietitian prior to surgery (1:1 visit or WM class) Venus Saldana RD, CNSC, LD [facility] Bariatrics [phone] documented in this enco unter Plan of [...] | + +--------+ + + + | [place] MNT RE-ASSESSMNT | Routin | 01/18/2019 | [...]
--- OUTSIDE RECORDS SUMMARY | ~2020-02-07 | XMS | Encounter Summary ---
Demographics + + + | Address | [address] | | | [place] [address] | + + + | Home Phone [...] Team Providers + +------+ + | Care Business Area Manager Name | Role | Phone | [...] | 04/15/ | Telephone | [facility] at [facility] 7th | Deana Jimenez MD | Medication | | 2012 | | Floor [address] | [address] | management (Needs | | | | St Mailcode: [facility] | Naty Isaacs [place], | updated orders ) | | | | [facility], [place] | [place] [address] | | | | | [address] | [phone] | | | | | [phone] | | | +--------+ + + + [...]
--- OUTSIDE RECORDS SUMMARY | ~2020-02-07 | XMS | Encounter Summary ---
Demographics + + + | Address | [address] | | | [place] [address] | + + + | Home Phone | | + + + | Preferred Language | Unknown | + + + | Marital Status | Single | + + + | Pentecostal Affiliation | Unknown | + + + [...] Team Providers + +------+ + | Care Bunk House Worker Name | Role | Phone | + +------+ + | Estiven Hallman DO | PCP | | + +------+ + Encounter Details +--------+ + + + + | Date | Type | Department | Care Team | Description | +--------+ + + + + | 09/18/ | Abstract | NON-[facility] EP[facility] | Estiven Hallman DO | | | 2015 | | Department | [facility] | | | | | | Internal Medicin | | | | | | [address] [facility] | | | | | | [place] [address] | | | | | | [phone] | | | | | | | [...]
--- OUTSIDE RECORDS SUMMARY | ~2020-02-07 | XMS | Encounter Summary ---
Demographics + + + | Address | [address] | | | [place] [address] | + + + | Home Phone | | + + + | Preferred Language | Unknown | + + + | Marital Status | Single | + + + | Tenriism Affiliation | Unknown | + + + [...] Team Providers + +------+ + | Care Automotive Maintenance Technician Name | Role | Phone | + +------+ + | Christina Rain MD | PCP | | + +------+ + Encounter Details +--------+------+ + + + | Date | Type | Department | Care Team | Description | +--------+------+ + + + | 12/23/ | Lab | Lab Center at | | Fabry disease (HCC) | | 2011 | | [place] | | | | | | [facility] | | | | | | [address] [facility] | | | | | | [place] | | | | | | [facility] | | | | | | 7th Floor [place], | | | | | | [place] [address] | | | | | | [phone] | | | +--------+------+ + + + [...] + | TOTAL RESULTS | Routin | 12/24/2011 | | Results for this | | FOR,URINE | e | 3:20 PM | | procedure are in the | | | | PDT | | results section. | + +--------+ + + + | COMPLETE METABOLIC | Routin | 12/24/2011 | Fabry disease | Results for this | | SET | e | 3:20 PM | (HCC) | procedure are in the | | (NA,K,CL,CO2,BUN,CRE | | PDT | | results section. | | AT,GLUC,CA,AST,ALT,B | | | | | | BECCA TOTAL,ALK | | | | | | PHOS,ALB,PROT TOTAL) | | | | | + +--------+ + + + | UA, DIPSTICK ONLY | Routin | 12/24/2011 | Fabry disease | Results for this | | | e | 3:20 PM | (HCC) | procedure are in the | | | | PDT | | results section. | + +--------+ + + + | LIPID SET (TRIG, T | Routin | 12/24/2011 | Fabry disease | Results for this | | CHOL, HDL, CALC LDL) | e | 3:20 PM | (HCC) | procedure are in the | | | | PDT | | results section. | + +--------+ + + + | PROTEIN, URINE | Routin | 12/24/2011 | Fabry disease | Results for this | | | e | 3:20 PM | (HCC) | procedure are in the | | | | PDT | | results section. | + +--------+ + + + | CREATININE, URINE | Routin | 12/24/2011 | Fabry disease | Results for this | | | e | 3:20 PM | (HCC) | procedure are in the | | | | PDT | | results section. | + +--------+ + + + documented in this encounter Results TOTAL RESULTS FOR,URINE (12/24/2011 3:20 PM PDT) + + + [...] + + + + + | [facility] | [address] | [place] [address] | | | PATHOLOGY | [address] [...] 147 (H)Comment: non-HDL | <130 mg/dL | [facility] | | | CHOLESTEROL | Cholesterol Reference [...] + + + + + | [facility] DEPARTMENT OF | [address] | [place] [address] | | | PATHOLOGY | [address] [...] 99 | 60 - 99 mg/dL | [facility] [...] | | | DEPARTMENT | | | BAN[place]HI | | | OF | | | [...] + + + + | [facility] DEPARTMENT | [address] | [place] [address] | | | PATHOLOGY | [address] | | | + + + + + COBY MUNIZ ONLY (12/24/2011 3:20 PM PDT) + + [...] + + + + + | [facility] DEPARTMENT OF | [address] | [place] [address] | | | PATHOLOGY | [address] | | | + + + + + CREATININE, URINE (12/24/2011 3:20 PM PDT) + +--------+ + + + | Component | Value | Ref Range | Performed | Pathologist | | | | | At | Signature | + +--------+ + + + | CREATININE | 223.38 | mg/dL | [facility] | | | CONC UR | | [...] + + + + + | [facility] | [address] | [place] [address] | | | PATHOLOGY | [address] [...] DEPARTMENT OF | [address] | [place] [address] | | | PATHOLOGY | [address] | | | + + + + + documented in this encounter Visit Diagnoses + + | Diagnosis | + + | Fabry disease (HCC) Lipidoses | + + documented in this encounter"
--- OUTSIDE RECORDS SUMMARY | ~2020-02-07 | XMS | Encounter Summary ---
Demographics + + + | Address | [address] | | | [place] [address] | + + + | Home Phone [...] Team Providers + +------+ + | Care Quiller Machine Fixer Name | Role | Phone | + +------+ + | Estiven Hallman DO | PCP | | + +------+ + Encounter Details +--------+ + + + + | Date | Type | Department | Care Team | Description | +--------+ + + + + | 06/12/ | Steel Analyst | [facility] at [facility] 7th | Marcellus Rodriguez MD | Fabry disease (HCC) | | 2017 | | Floor [address] | [address] | (Primary Dx) | | | | St Mailcode: [facility] | [address] | | | | | [facility] [place], [place] | [place], [place] | | | | | [address] | [address] | | | | | [phone] | [phone] | | | | | | | [...] as of this encounter Plan of Treatment + +------+--------+ + + | Name | Type | Priori | Associated Diagnoses | Order Schedule | | | | ty | | | + +------+--------+ + + | LAB OTHER | Lab | Routin | Fabry disease | Ordered: 06/12/2017 | | | | e | (HCC) | | + +------+--------+ + + documented as of this encounter Visit Diagnoses + + | Diagnosis | + + | Fabry disease (HCC) - Primary Lipidoses | + + documented in this encounter"
--- OUTSIDE RECORDS SUMMARY | ~2020-02-07 | XMS | Encounter Summary ---
Demographics + + + | Address | [address] | | | [place] [address] | + + + | Home Phone [...] + + + | Author | [facility] | + + + | Organization | [facility] | + + + | Address | Unknown | + + + | Phone | Unavailable | + + + Support + + +---------+ + | Name | Relationship | Address | Phone | + + +---------+ + | John Miguel | ECON | Unknown | | + + +---------+ + Care Team Providers + +------+ + | Care Hair Designer Name | Role | Phone | + +------+ + | Fausto Sinclair | PCP | | + +------+ + Encounter Details +--------+ + + + + | Date | Type | Department | Care Team | Description | +--------+ + + + + | 06/24/ | Documentati | [facility] at [facility] 7th | Deana Jimenez MD | | | 2012 | on | Floor [address] | [address] | | | | | St Mailcode: [facility] | Naty Isaacs [place], | | | | | [facility] [place], [place] | [place] [address] | | | | | [address] | [phone] | | | | | [phone] | | | +--------+ + + + [...] | BASIC METABOLIC SET | Routin | 04/30/2013 | | Results for this | | (NA, K, CL, TCO2, | e | | | procedure are in the | | BUN, CR, GLU, CA) | | | | results section. | + +--------+ + + + | CBC ONLY | Routin | 04/30/2013 | | Results for this | | | e | | | procedure are in the | | | | | | results section. | + +--------+ + + + documented in this encounter Results CBC ONLY (04/30/2013) + + + + + + | Component | Value | Ref Range | Performed | Pathologist | | | | | At | Signature | + + + + + + | WHITE CELL | 6.9 | K/cu mm | NON [facility] | | | COUNT | | | LAB | | + + + + + + | RED CELL | 3.86 | M/cu mm | NON [facility] | | | COUNT | | | LAB | | + + + + + + | HEMOGLOBIN | 10.4 (A) | 12 - 16 g/dL | NON [facility] | | | | | | LAB | | + + + + + + | HEMATOCRIT | 32.3 (A) | 35 - 45 % | NON [facility] | | | | | | LAB | | + + + + + + | MCV | 83.7 | fL | NON [facility] | | | | | | LAB | | + + + + + + | MCH | 27 | pg | NON [facility] | | | | | | LAB | | + + + + + + | MCHC | 32 | g/dL | NON [facility] | | | | | | LAB | | + + + + + + | PLATELET | 234 | K/cu mm | NON [facility] | | | COUNT | | | LAB | | + + + + + + + + | Specimen | + + | Blood - Blood | + + + +---------+ + + | Performing | Address | City/State/Zipcode | Phone Number | | Organization | | | | + +---------+ + + | NON [facility] LAB | | | | + +---------+ + + BASIC METABOLIC SET (NA, K, CL, TCO2, BUN, CR, GLU, CA) (04/30/2013) + +-------+ + + + | Component | Value | Ref Range | Performed | Pathologist | | | | | At | Signature | + +-------+ + + + | GLUCOSE, | 100 | mg/dL | NON [facility] | | | PLASMA | | | LAB | | | (LAB) | | | | | + +-------+ + + + | BUN, PLASMA | 11 | mg/dL | NON [facility] | | | (LAB) | | | LAB | | + +-------+ + + + | CREATININE | 0.85 | mg/dL | NON [facility] | | | PLASMA | | | LAB | | | (LAB) | | | | | + +-------+ + + + | SODIUM, | 135 | mmol/L | NON [facility] | | | PLASMA | | | LAB | | | (LAB) | | | | | + +-------+ + + + | POTASSIUM, | 3.8 | mmol/L | NON [facility] | | | PLASMA | | | LAB | | | (LAB) | | | | | + +-------+ + + + | CHLORIDE, | 103 | mmol/L | NON [facility] | | | PLASMA | | | LAB | | | (LAB) | | | | | + +-------+ + + + | TOTAL CO2, | 27 | mmol/L | NON [facility] | | | PLASMA | | | LAB | | | (LAB) | | | | | + +-------+ + + + | CALCIUM, | 8.7 | mg/dL | NON [facility] | | | PLASMA | | | LAB | | | (LAB) | | | | | + +-------+ + + + | POTASSIUM | 3.8 | | NON [facility] | | | CMNT | | | LAB | | + +-------+ + + + + + | Specimen | + + | Blood - Blood | + + + +---------+ + + | Performing | Address | City/State/Zipcode | Phone Number | | Organization | | | | + +---------+ + + | NON [facility] LAB | | | | + +---------+ + + documented in this encounter Visit Diagnoses Not on filedocumented in this encounter"
--- OUTSIDE RECORDS SUMMARY | ~2020-02-07 | XMS | Encounter Summary ---
Demographics + + + | Address | [address] | | | [place] [address] | + + + | Home Phone [...] Team Providers + +------+ + | Care Mainframe Systems Engineer Name | Role | Phone | [...] | | 2018 | | Center at [facility] [address] | | Review | | | | [address] | | | | | | Mailcode: Center | | | | | | [facility] and | | | | | | [facility] 2 | | | | | | [place], [place] | | | | | | [address] | | | | | | [phone] | | | +--------+ + + + [...]
--- OUTSIDE RECORDS SUMMARY | ~2020-02-07 | XMS | Encounter Summary ---
Demographics + + + | Address | [address] | | | [place] [address] | + + + | Home Phone [...] Team Providers + +------+ + | Care Client Support Manager Name | Role | Phone | [...] Records | | 2016 | | Center at [facility] [address] | | Review | | | | [address] | | | | | | Mailcode: Center | | | | | | [facility] and | | | | | | [facility] 2 | | | | | | [place], [place] | | | | | | [address] | | | | | | [phone] | | | +--------+ + + + [...]
--- OUTSIDE RECORDS SUMMARY | ~2020-02-07 | XMS | Encounter Summary ---
Demographics + + + | Address | [address] | | | [place] [address] | + + + | Home Phone [...] Team Providers + +------+ + | Care Entry Level Project Coordinator Name | Role | Phone | + +------+ + | Fausto Sinclair | PCP | | + +------+ + Encounter Details +--------+ + + + + | Date | Type | Department | Care Team | Description | +--------+ + + + + | 06/24/ | Documentati | [facility] at [facility] 7th | Deana Jimenez MD | | | 2012 | on | Floor [address] | [address] | | | | | St Mailcode: [facility] | Naty Isaacs [place], | | | | | [facility] [place], [place] | [place] [address] | | | | | [address] | [phone] | | | | | [phone] | | | +--------+ + + + [...]
--- OUTSIDE RECORDS SUMMARY | ~2020-02-07 | XMS | Encounter Summary ---
Demographics + + + | Address | [address] | | | [place] [address] | + + + | Home Phone | | + + + | Preferred Language | Unknown | + + + | Marital Status | Single | + + + | Synagogue Affiliation | Unknown | + + + [...] Team Providers + +------+ + | Care Signal Apprentice Name | Role | Phone | + +------+ + | Lexx Estiven | PCP | | + +------+ + Encounter Details +--------+ + + + + | Date | Type | Department | Care Team | Description | +--------+ + + + + | 02/25/ | Documentati | [facility] | Kathleen Canchola, | | | 2017 | on | Center at [facility] [address] | [facility] [address] | | | | | [address] | [facility] [place] | | | | | Mailcode: [place] | [address] | | | | | for Health and | [phone] | | | | | [facility] 2 | | | | | | [place], [place] | | | | | | [address] | | | | | | [phone] | | | +--------+ + + + [...]
--- OUTSIDE RECORDS SUMMARY | ~2020-02-07 | XMS | Encounter Summary ---
Demographics + + + | Address | [address] | | | [place] [address] | + + + | Home Phone [...] Team Providers + +------+ + | Care Calibration Specialist Name | Role | Phone | + +------+ + PCP | Unavailable | + +------+ + Encounter Details +--------+ + + + + | Date | Type | Department | Care Team | Description | +--------+ + + + + | 06/14/ | Office | [facility] | Consult, [...] as of this encounter Progress Notes Interface, Integration Solution Architect In - 04/14/2005 8:23 AM PDT [id number] 04/30/2004 06/14/2004 [id number] [facility] DATE: 06/14/2004 CLINIC NAME: Metabolism DISCIPLINE: Metabolics I had a nice talk with Dr. Núñez, Jarvismian Enrique's physician [phone]. 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 He agrees she needs treatment. He would be happy to supervise her infusions. He recd a call from "Jef," President of the local [place] Medicaid HMO, who told him this is $20,000 a month and he has no proof of lobsterman efficacy. I suggested he have Jef call me. I suggested we let [employer] and her insurance doran it out and if she truly is denied insurance, then presumably [employer] would provide the drug through an assistance program. Ekaterina, could you ask Lexus to have her insurance people follow up on this and to send this Jef the results from the Phase IV continuation study (and resend them to me)? thanks, Taurus Muhammad MD Sustainable Products Marketing Manager Department of Pediatrics Head--Division of Metabolism [address] [place] [address] Ferny--[facility], [place] [address]# FAX# email:[email or web address] A documented i n this encounter Plan of Treatment Not on filedocumented as of this encounter Visit Diagnoses Not on filedocumented in this encounter
--- OUTSIDE RECORDS SUMMARY | ~2020-02-07 | XMS | Encounter Summary ---
Demographics + + + | Address | [address] | | | [place] [address] | + + + | Home Phone [...] Team Providers + +------+ + | Care Slack Line Yarder Name | Role | Phone | + [...] | 2016 | Visit | Center at [facility] [address] | | unspecified obesity | | | | [address] | | type (HCC) (Primary | | | | Mailcode: Center | | Dx) | | | | for Health and | | | | | | [facility], [facility] 2 | | | | | | [place], [place] | | | | | | [address] | | | | | | [phone] | | | +--------+---------+ + + + [...] encounter Progress Notes Venus Saldana, RD - 05/12/2017 3:00 PM PDT Referring Provider: Estiven Hallman DO [facility], Pre-Bariatric Surgery Class Pre-Surgery Class #2 prior to having Nessa-En-Y gastric bypass surgery or Sleeve Gastrectomy . Documented Time of Class: 2:00/3:00 until 3:00/4:00 (60 minutes [id number] with patient) OBJECTIVE: Height: Ht Readings from [...] or sharing information. Yes Venus Saldana RD, [facility], LD [facility] Bariatrics [phone] documented in this enco unter Plan of Treatment Not on filedocumented as of this encounter Visit Diagnoses + + | Diagnosis | + + | Morbid obesity, unspecified obesity type (HCC) - Primary | + + documented in this encounter
--- OUTSIDE RECORDS SUMMARY | ~2020-02-07 | XMS | Encounter Summary ---
Demographics + + + | Address | [address] | | | [place] [address] | + + + | Home Phone [...] Providers + +------+ + | Care Fire Ranger Name | Role | Phone | + [...] | | 2019 | on | at [facility] | B, CHRONOMETER TESTER [address] [facility] | (co-signed orders | | | | [address] | [facility] | for fabrazyme sent | | | | Josephine | [place], [place] | to Dr. Andersen's | | | [facility] | [address] | office for her | | | | 7th Floor [place], | [phone] | signature. I let | | | | [place] [address] | | staff know to expect | | | | [phone] | | them today.) | +--------+ + [...]
--- OUTSIDE RECORDS SUMMARY | ~2020-02-07 | XMS | Encounter Summary ---
Demographics + + + | Address | [address] | | | [place] [address] | + + + | Home Phone [...] Team Providers + +------+ + | Care Exchange Specialist Name | Role | Phone | [...] Description | +--------+---------+ + + + | 07/01/ | Office | Digestive Health | | Morbid obesity due | | 2019 | Visit | Center at [facility] [address] | | to excess calories | | | | [address] | | ([facility]) (Primary Dx) | | | | Mailcode: Center | | | | | | [facility] and | | | | | | [facility] 2 | | | | | | [place], [place] | | | | | | [address] | | | | | | [phone] | | | +--------+---------+ + + + [...] + + + + | Weight | 147.8 kg (325 lb | 07/01/2019 10:35 AM | | | | 12.8 oz) | PDT | | + + + + + | Height | - | - | | + + + + + | Body Mass Index | 57.71 | 01/12/2019 9:43 AM | | | | | PDT | | + + + + + documented in this encounter Progress Notes Kathe Starks RD - 07/01/2019 9:30 AM PDTFormatting of this note might be different fr om the original. Referring Provider: Estiven Hallman DO Outpatient [facility] Clinic, Pre-Bariatric Surgery Class Pre-Surgery Class #2 prior to having Nessa-En-Y gastric bypass surgery or Sleeve Gastrectomy . Documented Time of Class: 60 minutes [id number] with patient OBJECTIVE: Height: Ht Readings from Last 1 Encounters: 01/12/19 1.6 m (5' 3") Ht Readings from Last 1 Encounters: 01/12/19 1.6 m (5' 3") Wt Readings from Last 2 Encounters: 07/01/19 147.8 kg (325 lb 12.8 oz) 06/04/19 147 kg (324 lb) BMI: Body mass index is 57.71 kg/m. Teaching Methods: Verbal presentation with Bariatric [...] -Taking vitamins and minerals every day 2. Post surgical diet progression 3. Vitamins and Minerals & lab work. 4. Fluids 5. Exercise Assessment: Pt remained attentive throughout the class and/or participated by asking questi ons or sharing information. Kathe Starks, MS, RDN, CSOWM, LD, CDE [facility] Bariatrics [phone] documented in this e ncounter Plan of Treatment Not on filedocumented as of this encounter Visit Diagnoses + + | Diagnosis | + + | Morbid obesity due to excess calories (HCC) - Primary | + + documented in this encounter
--- OUTSIDE RECORDS SUMMARY | ~2020-02-07 | XMS | Encounter Summary ---
Demographics + + + | Address | [address] | | | [place] [address] | + + + | Home Phone [...] Team Providers + +------+ + | Care Cable Repairer Name | Role | Phone | [...] + + + + | 02/04/ | Telephone | [facility] at [facility] 7th | Shaina Barrett | Medication | | 2015 | | Floor [address] | management | | | | St Mailcode: [facility] | | | | | | [facility] [place], [place] | | | | | | [address] | | | | | | [phone] | | | +--------+ + + + [...]
--- OUTSIDE RECORDS SUMMARY | ~2020-02-07 | XMS | Encounter Summary ---
Demographics + + + | Address | [address] | | | [place] [address] | + + + | Home Phone [...] Team Providers + +------+ + | Care Diesel Locomotive Firer Name | Role | Phone | + [...] | heterozygous female | | | | [facility] | | ([facility]) | | | | [address] [facility] | | | | | | Josephine | | | | | | [facility] | | | | | | 7th Floor [place], | | | | | | [place] [address] | | | | | | [phone] | | | +--------+------+ + + + [...] | | | PDT | ([facility]) | results section. | + +--------+ + + + | LAB OTHER | Routin | 07/07/2018 | Fabry disease in | Results for this | | | e | 12:39 PM | heterozygous female | procedure are in the | | | | PDT | ([facility]) | results section. | + +--------+ + + + | LAB OTHER | Routin | 07/07/2018 | Fabry disease in | Results for this | | | e | 12:39 PM | heterozygous female | procedure are in the | | | | PDT | ([facility]) | results section. | + +--------+ + + + | LAB OTHER | Routin | 07/07/2018 | Fabry disease in | Results for this | | | e | 12:39 PM | heterozygous female | procedure are in the | | | | PDT | (HCC) | results section. | + +--------+ [...] [facility] | [address] | [place] [address] | | | MARAL BANKS | [address] | | | + [...] | + + + + + | [facility] | [address] | [place] [address] | | | SERVICES, CORE | JAMIA [...] | | LAB | | | | [place] | | | | | | [place], [place] | | | | | | [address] | | | | + + + + + + + + | Specimen | + + | Blood - Blood | | (substance) | + + + + + | Narrative | Performed At | + + + | See scanned | [facility] | | report for Technical Results and [...] | + + + + + | [facility] | [address] | [place] [address] | | | JOCELYN, MARAL | JAMIA [...] | LAB | | | | [place] [address] | | | | + + + [...] | + + + + + | [facility] | [address] | [place] [address] | | | MARAL BANKS | [address] | | | + + + + + | [facility] | see below | | | + + + + + documented in this encounter Visit Diagnoses + + | Diagnosis | + + | 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
--- OUTSIDE RECORDS SUMMARY | ~2020-02-07 | XMS | Encounter Summary ---
Demographics + + + | Address | [address] | | | [place] [address] | + + + | Home Phone | | + + + | Preferred Language | Unknown | + + + | Marital Status | Single | + + + | Yazdanism Affiliation | Unknown | + + + [...] Team Providers + +------+ + | Care Film Projector Operator Name | Role | Phone | + +------+ + | Fausto Sinclair | PCP | | + +------+ + Encounter Details +--------+ + + + + | Date | Type | Department | Care Team | Description | +--------+ + + + + | 03/25/ | Documentati | [facility] at [facility] 7th | Deana Jimenez MD | | | 2012 | on | Floor [address] | [address] | | | | | St Mailcode: [facility] | Naty Isaacs [place], | | | | | [facility] [place], [place] | [place] [address] | | | | | [address] | [phone] | | | | | [phone] | | | +--------+ + + + [...] | + +---------+ + + | NON [facility] | | | | + +---------+ + + documented in this encounter Visit Diagnoses Not on filedocumented in this encounter"
--- OUTSIDE RECORDS SUMMARY | ~2020-02-07 | XMS | Encounter Summary ---
Demographics + + + | Address | [address] | | | [place] [address] | + + + | Home Phone [...] Team Providers + +------+ + | Care Customer Service Leader Name | Role | Phone | + +------+ + | Lexx Estiven DO | PCP | | + +------+ + Encounter Details +--------+ + + + + | Date | Type | Department | Care Team | Description | +--------+ + + + + | 01/22/ | Abstract | Digestive Health | Clinic, Surgery | | | 2019 | | [place] at [facility] [address] | | | | | | [address] | | | | | | Mailcode: [place] | | | | | | for Health and | | | | | | Healing, Building 2 | | | | | | [place], [place] | | | | | | [address] | | | | | | [phone] | | | +--------+ + + + [...]
--- OUTSIDE RECORDS SUMMARY | ~2020-02-07 | XMS | Encounter Summary ---
Demographics + + + | Address | [address] | | | [place] [address] | + + + | Home Phone [...] Team Providers + +------+ + | Care Machine Leather Trimmer Name | Role | Phone | + +------+ + | Estiven Hallman DO | PCP | | + +------+ + Encounter Details +--------+ + + + + | Date | Type | Department | Care Team | Description | +--------+ + + + + | 09/17/ | Abstract | NON-[facility] | Other, Faculty | | | 2017 | | Department | [phone] | | +--------+ + + + + [...]
--- OUTSIDE RECORDS SUMMARY | ~2020-02-07 | XMS | Encounter Summary ---
Demographics + + + | Address | [address] | | | [place] [address] | + + + | Home Phone [...] Providers + +------+ + | Care Hand Clerical Verifier Name | Role | Phone | + [...] | | 2016 | | Center at [facility] [address] | | Review | | | | [address] | | | | | | Mailcode: Center | | | | | | [facility] and | | | | | | [facility] 2 | | | | | | [place], [place] | | | | | | [address] | | | | | | [phone] | | | +--------+ + + + [...]
--- OUTSIDE RECORDS SUMMARY | ~2020-02-07 | XMS | Encounter Summary ---
Demographics + + + | Address | [address] | | | [place] [address] | + + + | Home Phone [...] Team Providers + +------+ + | Care Rag Grader Name | Role | Phone | + +------+ + | Lexx Estiven | PCP | | + +------+ + Reason for Visit + + + | Reason | Comments | + + + | Medication | needs PCP appt for infusion | | management | | + + + Encounter Details +--------+ + + + + | Date | Type | Department | Care Team | Description | +--------+ + + + + | 03/27/ | MyChart | Metabolic Genetics | Genny Hagan | Infusion Orders | | 2019 | Encounter | at [facility] [place] | B, CONFIGURATION MANAGEMENT ADVISOR [address] | | | | | [address] | [facility] | | | | | Josephine | [place], [place] | | | | | [facility] | [address] | | | | | 7th Floor [place], | [phone] | | | | | [place] [address] | | | | | | [phone] | | | +--------+ + + + [...]
--- OUTSIDE RECORDS SUMMARY | ~2020-02-07 | XMS | Encounter Summary ---
Demographics + + + | Address | [address] | | | [place] [address] | + + + | Home Phone [...] Team Providers + +------+ + | Care Unemployment Specialist Name | Role | Phone | [...] + + | 04/04/ | Office | Digestive Health | | Morbid obesity with | | 2016 | Visit | Center at [facility] [address] | | BMI of 60.0-69.9, | | | | [address] | | adult (HCC) (Primary | | | | Mailcode: Center | | Dx) | | | | for Health and | | | | | | [facility] 2 | | | | | | [place], [place] | | | | | | [address] | | | | | | [phone] | | | +--------+---------+ + + + [...] + + + + | Weight | 166.2 kg (366 lb 4.8 | 04/04/2017 3:24 PM | | | | oz) | PDT | | + + + + + | Height | - | - | | + + + + + | Body Mass Index | 65.93 | 02/03/2017 10:58 AM | | | | | PDT | | + + + + + documented in this encounter Progress Notes Venus Saldana, RD - 04/04/2017 2:00 PM PDT Referring Provider: Estiven Hallman DO Outpatient Nutrition Clinic, Pre-Bariatric Surgery Class Pre-Surgery Class #1 prior to having Nessa-En-Y gastric bypass surgery or Sleeve Gastrectomy . Documented Time of Class: 2:00/3:00 until 3:00/4:00 (60 minutes yjuj-fs-wxfl with patient) OBJECTIVE: Height: Ht Readings from Last 1 Encounters: 02/03/17 1.588 m (5' 2.5") Ht Readings from Last 1 Encounters: 02/03/17 1.588 m (5' 2.5") Wt Readings from Last 2 Encounters: 04/04/17 166.2 kg (366 lb 4.8 oz) 03/19/17 167.5 kg (369 lb 3.2 oz) BMI: Body mass index is 65.93 kg/(m^2). Teaching Methods: PowerPoint and verbal presentation [...] or sharing information. Yes Venus Saldana RD, [facility], LD [facility] Bariatrics [phone] documented in this enc ounter Plan of Treatment Not on filedocumented as of this encounter Visit Diagnoses + + | Diagnosis | + + | Morbid obesity with BMI of 60.0-69.9, adult (HCC) - Primary | + + documented in this encounter
--- OUTSIDE RECORDS SUMMARY | ~2020-02-07 | XMS | Encounter Summary ---
Demographics + + + | Address | [address] | | | [place] [address] | + + + | Home Phone [...] Team Providers + +------+ + | Care Makeup Artistry Instructor Name | Role | Phone | + [...] Rd | | | | | | [place], [place] | | | | | | [address] | | | +--------+ + + + [...]
--- OUTSIDE RECORDS SUMMARY | ~2020-02-07 | XMS | Encounter Summary ---
Demographics + + + | Address | [address] | | | [place] [address] | + + + | Home Phone [...] Team Providers + +------+ + | Care Lodging House Keeper Name | Role | Phone | + +------+ + | Fausto Sinclair | PCP | | + +------+ + Encounter Details +--------+ + + + + | Date | Type | Department | Care Team | Description | +--------+ + + + + | 06/24/ | Documentati | [facility] at [facility] 7th | Deana Jimenez MD | | | 2012 | on | Floor [address] | [address] | | | | | St Mailcode: [facility] | Naty Isaacs [place], | | | | | [facility] [place], [place] | [place] [address] | | | | | [address] | [phone] | | | | | [phone] | | | +--------+ + + + [...] + | LAB OTHER | Routin | 05/13/2013 | | Results for this | | | e | | | procedure are in the | | | | | | results section. | + +--------+ + + + documented in this encounter Results LAB OTHER (05/13/2013) + + + + + + | [...] + + + + | ALKALINE | 4.0Comment: Plasma GL-3 | ug/mL | NON [facility] | | | [...]
--- OUTSIDE RECORDS SUMMARY | ~2020-02-07 | XMS | Encounter Summary ---
Demographics + + + | Address | [address] | | | [place] [address] | + + + | Home Phone [...] Author + + + | Author | [facility] | + + + | Organization | [facility] | + + + | Address | Unknown | + + + | Phone | Unavailable | + + + Support + + +---------+ + | Name | Relationship | Address | Phone | + + +---------+ + | John Miguel | ECON | Unknown | | + + +---------+ + Care Team Providers + +------+ + | Care Regional Merchandising Manager Name | Role | Phone | + +------+ + | Lexx Estiven | PCP | | + +------+ + Reason for Visit + + + | Reason | Comments | + + + | Medication | Home infusions | | management | | + + + Encounter Details +--------+ + + + + | Date | Type | Department | Care Team | Description | +--------+ + + + + | 08/05/ | Telephone | [facility] at [facility] 7th | Marcellus Rodriguez MD | Medication | | 2016 | | Floor [address] | [address] | management (Home | | | | St Mailcode: [facility] | [facility] | [facility]) | | | | [facility], [place] | [place], [place] | | | | | [address] | [address] | | | | | [phone] | [phone] | | | | | | | [...]
--- OUTSIDE RECORDS SUMMARY | ~2020-02-07 | XMS | Encounter Summary ---
Demographics + + + | Address | [address] | | | [place] [address] | + + + | Home Phone [...] Providers + +------+ + | Care Senior Mobile Developer Name | Role | Phone | + +------+ + | Estiven Hallman DO | PCP | | + +------+ + Reason for Visit Consultation (Routine) +--------+ + + + + [...] | [facility] | | | with JUNIOR DESIGNER | | | | [facility] [address] | | | | | | | [address] | | | | | | | Mailcode: | | | | | | | [place] for | | | | | | | Health and | | | | | | | Healing, | | | | | | | Building 2 | | | | | | | [place], [place] | | | | | | | [address] | | | | | | | Phone: | | | | | | | [phone] | | | | | | | Fax: | | | | | | | [phone] | +--------+ + + + + + [...] | | [address] | Ave [place], [place] | ([facility]) (Primary Dx); | | | | Mailcode: Center | [address] | DM type 2 without | | | | for Health and | [phone] | retinopathy ([facility]); | | | | Healing, Building 2 | | Fabry disease ([facility]); | | | | [place], [place] | | Benign essential | | | | [address] | | HTN; | | | | [phone] | | Gastroesophageal | | | | [...] documented as of this encounter Progress Notes Trish Corea ACNP - 08/19/2018 9:35 AM PSTThis patient was a no show for her re-evaluat ion for bariatric surgery. She was also a no show 08/11/18. Trish MCKENZIE CYLINDER GRINDER Bariatric Surgery NP documented in this encounter [...]
--- OUTSIDE RECORDS SUMMARY | ~2020-02-07 | XMS | Encounter Summary ---
Demographics + + + | Address | [address] | | | [place] [address] | + + + | Home Phone [...] Providers + +------+ + | Care Customer Assistance Representative Name | Role | Phone | [...] | 01/31/ | Documentati | [facility] at [facility] 7th | Fawad Muhammad, | Research data | | 2010 | on-ECX | Floor [address] Montiel MD | collection | | | | St Mailcode: [facility] | | | | | | [place], [place] | | | | | | [address] | | | | | | [phone] | | | +--------+ + + + [...] Registry PI: Fawad Muhammad MD IRB Number: [id number] Initials: On January 22, 2011 was approached [...] to this family. Geri Arredondo-Research Coordinator Phone: [phone] Pager: [phone] documented in this encounter Plan of Treatment Not on filedocumented as of this encounter Visit Diagnoses Not on filedocumented in this encounter"
--- OUTSIDE RECORDS SUMMARY | ~2020-02-07 | XMS | Clinical Summary ---
Demographics + + + | Address | [address] | | | [place] [address] | + + + | Home Phone [...] Team Providers + +------+ + | Care Glassware Selector Name | Role | Phone | + +------+ + | Mikki Barajas MD | PCP | | + +------+ + Source Comments IGNACIO is fully live on both [facility] Ambulatory and [facility] InPatient.[facility] & [facility] Allergies + + + + + + [...] + | Overview: Overview: | | PER [facility] NOTES | + + Resolved Problems [...] Medical Genetics | Deidre Nguyen MD | Other [...] | B | | sent | | [place], [place] | | | | | | | | [address] | | + +--------+ +--------+ + +--------+ | SENIOR STACK ENGINEER MEDICAID | SENIOR STACK ENGINEER | xxxxxxxx | | | | Medica [...] | 1980 | [phone] | [place] [address] | | | andrew | | | 3 (Home) | | + +--------+ +--------+ + + Advance Directives + + + + + | Type | Date Recorded | Patient | Explanation | | | | Network Analyst | | + + + + + | Advance | | | | | Directives and | | | | | Living Will | | | | + + + + + | Power of | | | | | Vascular Physician | | | | + + + + +
--- OUTSIDE RECORDS SUMMARY | ~2020-02-07 | XMS | Encounter Summary ---
Demographics + + + | Address | [address] | | | [place] [address] | + + + | Home Phone [...] Providers + +------+ + | Care Nuclear Instructor Name | Role | Phone | [...] as of this encounter Progress Notes Interface, Pin Pusher In - 07/16/2006 2:32 AM PST [id number] 07/14/2006 07/14/2006 [id number] IVA ZHU [id number] [address], [place] [id number] or July 14, 2006 Florian fela RE: JARVIS ENRIQUE MR #: [id number] Dear Dr. Martinez: We saw your patient, [...] discuss her care. Sincerely, Fawad Muhammad M.D. City Constable of Pediatrics and Molecular Medical Genetics e-mail:[email or web address] / [id number] / [id number] / [phone] / [phone] documented i n this encounter Plan of Treatment Not on filedocumented as of this encounter Visit Diagnoses Not on filedocumented in this encounter"
--- OUTSIDE RECORDS SUMMARY | ~2020-02-07 | XMS | Encounter Summary ---
Demographics + + + | Address | [address] | | | [place] [address] | + + + | Home Phone [...] Author | [facility] | | | and [place] | + + + | Organization | [facility] | | | and [place] | + + + | Address | Unknown | + + + | Phone | Unavailable | + + + Support + + + + + | Name | Relationship | Address | Phone | + + + + + | Jordyn Miguel | ECON | NONE | | | | | [place] [address] | | + + + + + | Jordyn Miguel | ECON | NONE | + | | | | [place] [address] | | + + + + + Care Team Providers + +------+ + | Care Diversity Intern Name | Role | Phone | + +------+ + PCP | Unavailable | + +------+ + Encounter Details +--------+ + + + + | Date | Type | Department | Care Team | Description | +--------+ + + + + | 08/30/ | Hospital | [facility] | | | | 2000 | Encounter | [facility] | | | | | | CENTER [address] | | | | | | [place], [place] | | | | | | [address] | | | | | | [phone] | | | +--------+ + + + [...]
--- OUTSIDE RECORDS SUMMARY | ~2020-02-07 | XMS | Encounter Summary ---
Demographics + + + | Address | [address] | | | [place] [address] | + + + | Home Phone [...] Team Providers + +------+ + | Care Drill Press Operator For Metal Name | Role | Phone | + [...] | | | | | | | [place], [place] | | | | | | | [address] | | | | | | | Phone: | | | | | | | [phone] | | | | | | | Fax: | | | | | | | [phone] | +--------+--------+ + + + + Encounter Details +--------+---------+ + + + | Date | Type | Department | Care Team | Description | +--------+---------+ + + + | 03/29/ | Office | [facility] 7th | Butch Rodriguez MD | Fabry disease (HCC) | | 2013 | Visit | Floor [address] | [address] [facility] | (Primary Dx) | | | | St Mailcode: [facility] | [facility] | | | | | [facility] [place], [place] | [place], [place] | | | | | [address] | [address] | | | | | [phone] | [phone] | | | | | | | [...] + + documented in this encounter Progress Butch Ramírez MD - 03/30/2014 3:57 PM PDT Mrs. 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 Review of systems: Current Outpatient Prescriptions [...] care provide r. As visit to a flanging roll operator may also be warranted. There may be medications that cou ld alleviate her diarrhea and abdominal discomfort. Plan: 1) CBC and metabolic panel today 2) Refer back to PCP for symptom management 3) Continue ERT at current dose 4) RTC in one year. BUTCH RODRIGUEZ MD [facility] [address]TH FLOOR [address] [place] [address] Mailcode: [place] [address] documented in this enc ounter [...] | | | LABORATORY | | | ISRAELI | | | SERVICES, | | | [...] | + + + + + | [facility] | [address] | [place] [address] | | | SERVICES, CORE | JAMIA [...]
--- OUTSIDE RECORDS SUMMARY | ~2020-02-07 | XMS | Encounter Summary ---
Demographics + + + | Address | [address] | | | [place] [address] | + + + | Home Phone [...] Team Providers + +------+ + | Care Supervisor Particleboard Name | Role | Phone | + [...] as of this encounter Progress Notes Interface, Steward/Stewardess Third Class In - 04/14/2005 9:07 AM PDT [id number] IV[address] [facility] [address], [place], [place] [address] September 10, 2004 RE: Jarvis Miguel MR# [id number] Mckeon: Fabiana Christpoher told me she is . She has [...] about Fabry disease. Sincerely, Fawad Muhammad MD Deck Engineer Department of Pediatrics Head--Division of Metabolism [address] [place] [address] Ferny--[facility] [place] [address] PH# FAX# email:[email or web address] Enc: Article Cc: Dr. Núñez, PCP KOKO/marie P documented i n this encounter Plan of Treatment Not on filedocumented as of this encounter Visit Diagnoses Not on filedocumented in this encounter"
--- OUTSIDE RECORDS SUMMARY | ~2020-02-07 | XMS | Encounter Summary ---
Demographics + + + | Address | [address] | | | [place] [address] | + + + | Home Phone | | + + + | Preferred Language | Unknown | + + + | Marital Status | Single | + + + | Episcopalian Affiliation | Unknown | + + + [...] Team Providers + +------+ + | Care Instructional Technology Teacher Name | Role | Phone | + [...] | | | | Morbid | Laurie LINE UP EXAMINER | [address] | | | | | obesity with | [address] | | | | | BMI of | [address] | Mailcode: | | | | | 50.0-59.9, | [place], [place] | [facility] | | | | | adult ([facility]) | [address] | for Health | | | | | Fabry | Phone: | and Healing, | | | | | disease | | Building 1, | | | | | ([facility]) | Fax: | 7th Floor | | | | | Benign | [phone] | [place], [place] | | | | | essential | | [address] | | | | | HTN | | Phone: | | | | | Procedures | | [phone] | | | | | CONSULT TO | | Fax: | | | | | CARDIOLOGY | | [phone] | +--------+--------+ + + + + Consultation [...] | | | | | 50.0-59.9, | [place], [place] | [place], [place] | | | | | adult (HCC) | [address] | [address] | | | | | Fabry | Phone: | Phone: | | | | | disease | | [phone] | | | | | (HCC) | Fax: | Fax: | | | | | Benign | [phone] | [phone] | | | | | essential | [...] | [facility] | | | with TONGUE AND GROOVE MACHINE FEEDER | | | | [address] | | | | | | | [address] | | | | | | | Mailcode: | | | | | | | Center for | | | | | | | Health and | | | | | | | Healing, | | | | | | | Building 2 | | | | | | | [place], [place] | | | | | | | [address] | | | | | | | Phone: | | | | | | | | | | | | | | Fax: | | | | | | | [phone] | +--------+ + + + + + Encounter Details +--------+---------+ + + + | Date | Type | Department | Care Team | Description | +--------+---------+ + + + | 01/12/ | Office | Digestive Health | Laurie Whitfield, | Morbid obesity with | | 2019 | Visit | Center at [facility] [address] | LINE UP EXAMINER [address] | BMI of 50.0-59.9, | | | | [address] | [place], [place] | adult (HCC) (Primary | | | | Mailcode: Center | [address] | Dx); 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 + Pap test: Please obtain thru your primary care and we want to see the lab result from e PAP smear. (not the note from your provider) + Pre-op Psychological Evaluation: you will need a follow up evaluation with our psychologi st. Your referral is at [facility], the Pain Management Office will call you [...] bariatric surgery. I have referred you to [facility] Cardioaydin groves. Please call to schedule with their office. + Weight Management classes: 2 classes are required in addition to your private appointment with the taxation inspector. These classes will be scheduled apporoximately 1 month apart to allow t zoë for you to put the teaching into action. Please call [phone] to schedule these classes after you have [...] weight. + My Chart Sign up for [employer] so that we can communicate easily back [...] other providers does not guarantee that the [facility] Bariatric Surger y program will deem you [...] on that. 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 History of Present Illness: Jarvis Miguel is a 38 y.o. female who presents with a past [facility] of morbid obesity with a There [...] Redux or Phen/fen: no Transthoracic ECHO: no Episcopalian or cultural reason you would refuse blood [...] is under care of medical genetics at [facility], receives enzyme transfusions Q2 weeks. Medical genetics [...] inches / 40 cm around (measure at [employer])? No 8. Gender = Male? No High risk of sleep apnea if "yes' to four or more Cardiovascular: Denies exertional chest pain, palpitations, syncope, orthopnea, or paroxysm al nocturnal dyspnea. Denies history of lower extremity edema. Has hypertension, on medicati on. Denies hyperlipidemia. Denies CHF, [place], ischemic heart disease, DVT/PE, or pulmonary hype [...] last A1c was done through PCP in [facility] about a month ago per patient and was over 9%. Denies history of g out. Health maintenance: PAP: has appointment tomorrow with sail maker. OBJECTIVE Blood pressure 132/83, pulse 97, resp. [...] need a f/u 1:1 visit with our taxation inspector and to complete our 2 weight management [...] preop risk assessment -she prefers to see [facility] Cardiology for that. Referral placed, pt to [...] go to the 1st floor of the [facility] 2 building and have these labs done. + Pap test: Please obtain thru your primary care and we want to see the lab result from th e PAP smear. (not the note from your provider) + Pre-op Psychological Evaluation: you will need a follow up evaluation with our psychologi st. Your referral is at [facility], the Pain Management Office will call you [...] bariatric surgery. I have referred you to [facility] Cardiol germain. Please call to schedule with their office. + Weight Management classes: 2 classes are required in addition to your private appointment with the taxation inspector. These classes will be scheduled apporoximately 1 month apart to allow t zoë for you to put the teaching into action. Please call [phone] to schedule these classes after you have [...] weight. + My Chart Sign up for [employer] so that we can communicate easily back [...] other providers does not guarantee that the [facility] Bariatric Surger y program will deem you [...] ASHANTI Carrera, MPH Bariatric Surgery Nurse Practitioner [facility] | CH[address] | [place], [place] | [address] | documented in this encounter Plan of [...] | + + + + + | [facility] | [address] | [place] [address] | | | SERVICES, [facility] | | | | | HEALTH [...] | [facility] | | considered for monitoring long wall shear operator glycemic control in patients with: | LABORATORY [...] [facility] | [address] | [place] [address] | | | SERVICES, SPECIAL | PARK [...] | + + + + + | [facility] | [address] | [place] [address] | | | SERVICES, CORE | JAMIA [...] | | | | | determined by [facility] | | | | | | Laboratories. See | | | | | | Compliance Statement B: | | | | | | Corefino.com/CSPerformed | | | | | | by [employer],500 | | | | | | Tila Mcbride [facility] | | | | | | [address] | | | | | | [phone].Medical Device Innovationslab. | | | | | | Last [...] [facility] | [address] | [place], [place] | | | UNIV PTH - INTFC | | [address] | | + + + + + [...] | [facility] | [address] | [place] [address] | | | MARAL BANKS | JAMIA [...] | + + + + + | [facility] | [address] [facility] | [place] [address] | | | SERVICES, CORE | JAMIA [...] | + + + + + | [facility] | [address] | [place] [address] | | | SERVICES, CORE | PARK [...] [facility] | [address] | [place] [address] | | | JOCELYN, MARAL | JAMIA [...] | | | | | determined by [facility] | | | | | | Laboratories. See | | | | | | Compliance Statement B: | | | | | | [employer]/CSPerformed | | | | | | by [employer],500 | | | | | | Tila Mcbride [facility] | | | | | | [address] | | | | | | [phone].Medical Device Innovationslab. | | | | | | Last [...] [facility] | [address] | [place], [place] | | | UNIV PTH - INTFC | | [address] | | + + + + + [...] | + + + + + | [facility] | [address] | [place] [address] | | | [facility] | [address] | | | + [...] B: | | | | | | Per[employer]/CSPerformed | | | | | | by [employer],500 | | | | | | [facility] | | | | | | [address] | | | | | | [phone].Corefino. | | | | | | Confetti GamesLast MD, | | | | | | [...] [facility] | [address] | [place], [place] | | | UNIV PTH - INTFC | | [address] | | + + + + + [...] | + + + + + | [facility] | [address] | [place] [address] | | | SERVICES, CORE | JAMIA [...] [facility] | [address] | [place] [address] | | | SERVICES, SPECIAL | PARK [...] | + + + + + | [facility] | [address] | [place] [address] | | | SERVICES, CORE | JAMIA [...] | | | LABORATORY | | | [place] | | | SERVICES, | | | [...] the MDRD equation recommended by the | [facility] | | National Kidney Disease Education Program. Estimated GFR | LABORATORY | | Interpretive Information: <60 mL/min/1.73 sq m | SERVICES, | | Chronic Kidney Disease <15 mL/min/1.73 sq m | [place] [facility] | | Kidney Failure Estimated GFR [...] [facility] | [address] | [place] [address] | | | SERVICES, [facility] | | | | | HEALTH [...]
--- OUTSIDE RECORDS SUMMARY | ~2020-02-07 | XMS | Encounter Summary ---
Demographics + + + | Address | [address] | | | [place] [address] | + + + | Home Phone [...] Team Providers + +------+ + | Care Attic Fans Mechanic Name | Role | Phone | + +------+ + | Lexx Estiven | PCP | | + +------+ + Reason for Visit + + + | Reason | Comments | + + + | Referral to social | | | worker | | + + + Encounter Details [...] | | [address] | [place], | | | | | Mailcode: CH6A | [place] [address] | | | | | [place], [place] | | | | | | [address] | | | | | | [phone] | | | +--------+ + + + [...]
--- OUTSIDE RECORDS SUMMARY | ~2020-02-07 | XMS | Encounter Summary ---
Demographics + + + | Address | [address] | | | [place] [address] | + + + | Home Phone [...] Team Providers + +------+ + | Care Public Health Dietitian Name | Role | Phone | + [...] | Pain | Diagnoses | Jesika, | Vocational Nurse Psych | | | | Management | Morbid | JONAH Villavicencio | Chh1 [address] | | | | | obesity, | [address] | [address] | | | | | unspecified | [address] | Mailcode: | | | | | obesity type | [place], [place] | [facility] | | | | | ([facility]) | [address] | for Health | | | | | Procedures | Phone: | and Healing, | | | | | CONSULT TO | [phone] | Building 1, | | | | | PAIN | Fax: | 15th Floor | | | | | MANAGEMENT | [phone] | [place], [place] | | | | | [place] | | [address] | | | | | PSYCHIATRIC | | Phone: | | | | | DIAGNOSTIC | | [phone] | | | | | [facility] | | Fax: | | | | | [facility] | | [phone] | | | | | PSYCH TSTNG [...] | [facility] | | | with ARMATURE INSPECTOR | | | | Chh2 [address] [...] | | | | | | | [place], [place] | | | | | | | [address] | | | | | | | Phone: | | | | | | | [phone] | | | | | | | Fax: | | | | | | | [phone] | +--------+ + + + + + [...] | | [address] | [facility] [place] | type (HCC) (Primary | | | | Mailcode: Center | [address] | Dx); DM type 2 | | | | for Health and | | without retinopathy | | | | [facility] 2 | | ([facility]); Fabry disease | | | | [place], [place] | | ([facility]); | | | | [address] | | Gastroesophageal | | | | [...] | | | | | adult ([facility]) | +--------+---------+ + + + Social History [...] encounter Patient Instructions Patient Instructions Kathleen Canchola [facility] - 02/03/2017 11:00 AM PDTPlan: The following [...] to your private appointme nt with the academic administrator. These classes will be scheduled apporoximately 1 month apart to allow time for you to put the teaching into action. Please call [phone] + Labs needed: lipids, CBC, CMP, TSH, [...] Pre-op Psychological Evaluation: Your referral is at [facility], The Pain Management Office will call you in the next week to schedule. + Cardiology Consult: A cardiology provider needs to evaluate your cardiac function and le t us know if you can proceed with with bariatric surgery. If your referral is at [facility], they will call you in the next week to schedule. 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 Insurance requirements: your insurance requires : 4 months consecutive diet May : Kathleen Adan NP February: Class 1 March academic administrator ARMATURE INSPECTOR or PCP (in that order as options) [...] with the surgeon. Kathleen Adan DNP, JONAH, SAP PROJECT MANAGER Nurse Practitioner for Bariatric Surgery [facility] | [address] | [place], [place] | [address] | documented in this encounter Progress Notes Kathleen Canchola ACNP - 02/03/2017 11:00 AM PDTFormatting of this note might be different f rom the original. BARIATRIC INITIAL VISIT Provider: Kathleen Adan DNP, TIFFANIEP, SAP PROJECT MANAGER Referring Provider: Dr. Estiven Hallman Reason for [...] none Use of Redux or Phen/fen: no Zoroastrianism or cultural reason you would refuse blood [...] extremity edema, hypertension, hyperlipidemia . Denies CHF, [place], ischemic heart disease, DVT/PE, or pulmonary hypertension. [...] oldest son for adoption, he lives in [place], met him when he was 13 ( [...] currently on replacement medication. Plan: Check with GEAR TOOTH LAPPING MACHINE OPERATOR regarding her estrodiol at time of surgery, [...] to your private appointme nt with the academic administrator. These classes will be scheduled apporoximately 1 month apart to allow time for you to put the teaching into action. Please call [phone] + Labs needed: lipids, CBC, CMP, TSH, [...] Pre-op Psychological Evaluation: Your referral is at [facility], The Pain Management Office will call you in the next week to schedule. + A1C must be less than 8 + Cardiology Consult: A cardiology provider needs to evaluate your cardiac function and le t us know if you can proceed with with bariatric surgery. If your referral is at [facility], they will call you in the next week to schedule. 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 Insurance requirements: your insurance requires : 4 months consecutive diet May : Kathleen Adan NP February: Class 1 March academic administrator ARMATURE INSPECTOR or PCP (in that order as options) [...] with the surgeon. Kathleen Adan DNP, TIFFANIEP, SAP PROJECT MANAGER Nurse Practitioner for Bariatric Surgery [facility] | [address] | [place], [place] | [address] | documented in this encounter Plan of [...] [place], [place] | | | CARDIOLOGY | [address] | [address] | | + + + + + [...] [facility] | [address] | [place] [address] | | | SERVICES, SPECIAL | PARK [...] [facility] | [address] | [place] [address] | | | SERVICES, CORE | PARK [...] | + + + + + | [facility] | [address] | [place] [address] | | | SERVICES, MARAL | JAMIA [...] CENTER LABORATORY | [address] | [place] [address] | | | SERVICES, CORE | JAMIA [...] | + + + + + | [facility] | [address] | [place] [address] | | | MARAL BANKS | JAMIA [...] [facility] | [address] | [place] [address] | | | JOCELYN, CORE | JAMIA [...] | | | LABORATORY | | | TAIWANESE | | | SERVICES, | | | [...] the MDRD equation recommended by the | [facility] | | National Kidney Disease Education Program. [...] | + + + + + | [facility] | [address] | [place] [address] | | | MARAL BANKS | JAMIA [...]
--- OUTSIDE RECORDS SUMMARY | ~2020-02-07 | XMS | Encounter Summary ---
Demographics + + + | Address | [address] | | | [place] [address] | + + + | Home Phone | | + + + | Preferred Language | Unknown | + + + | Marital Status | Single | + + + | Congregational Affiliation | Unknown | + + + [...] Team Providers + +------+ + | Care Pediatric Oncology Nurse Name | Role | Phone | + [...] | 08/05/ | Telephone | [facility] at [facility] 7th | Shaina Barrett | Medication | | 2013 | | Floor [address] | management | | | | St Mailcode: [facility] | | (Fabryzyme) | | | | [facility] [place], [place] | | | | | | [address] | | | | | | [phone] | | | +--------+ + + + [...]
--- OUTSIDE RECORDS SUMMARY | ~2020-02-07 | XMS | Encounter Summary ---
Demographics + + + | Address | [address] | | | [place] [address] | + + + | Home Phone [...] Providers + +------+ + | Care Superintendent System Operation Name | Role | Phone | + [...] | 2019 | Encounter | at [facility] [place] | B, CARDIOLOGY TEACHER [address] | | | | | [address] | [facility] | | | | | Josephine | [place], [place] | | | | | [facility] | [address] | | | | | 7th Floor [place], | [phone] | | | | | [place] [address] | | | | | | [phone] | | | +--------+ + + + [...]
--- OUTSIDE RECORDS SUMMARY | ~2020-02-07 | XMS | Encounter Summary ---
Demographics + + + | Address | [address] | | | [place] [address] | + + + | Home Phone | | + + + | Preferred Language | Unknown | + + + | Marital Status | Single | + + + | Judaism Affiliation | Unknown | + + + [...] Team Providers + +------+ + | Care Operations Mgr Name | Role | Phone | + +------+ + | Lexx Estiven DO | PCP | | + +------+ + Encounter Details +--------+ + + + + | Date | Type | Department | Care Team | Description | +--------+ + + + + | 01/01/ | Abstract | Digestive Health | Clinic, Surgery | | | 2016 | | [place] [facility] [address] | | | | | | [address] | | | | | | Mailcode: [place] | | | | | | for Health and | | | | | | Healing, Building 2 | | | | | | [place], [place] | | | | | | [address] | | | | | | [phone] | | | +--------+ + + + [...]
--- OUTSIDE RECORDS SUMMARY | ~2020-02-07 | XMS | Encounter Summary ---
Demographics + + + | Address | [address] | | | [place] [address] | + + + | Home Phone [...] Team Providers + +------+ + | Care Machining Department Supervisor Name | Role | Phone | [...] + + + + | 04/29/ | Telephone | [facility] at [facility] 7th | Benny Hernandez MD | Medication | | 2013 | | Floor [address] | [address] | management | | | | St Mailcode: [facility] | [address] | | | | | [facility] [place], [place] | [place], [place] | | | | | [address] | [address] | | | | | [phone] | [phone] | | | | | | | [...]
--- OUTSIDE RECORDS SUMMARY | ~2020-02-07 | XMS | Encounter Summary ---
Demographics + + + | Address | [address] | | | [place] [address] | + + + | Home Phone | | + + + | Preferred Language | Unknown | + + + | Marital Status | Single | + + + | Latter Day Affiliation | Unknown | + + + [...] Team Providers + +------+ + | Care Carousel Operator Name | Role | Phone | + +------+ + | Christina Rain MD | PCP | | + +------+ + Encounter Details +--------+ + + + + | Date | Type | Department | Care Team | Description | +--------+ + + + + | 04/23/ | Telephone | [facility] at [facility] 7th | Fawad Muhammad, | | | 2010 | | Floor [address] | | | | | St Mailcode: [facility] | | | | | | [facility] [place], [place] | | | | | | [address] | | | | | | [phone] | | | +--------+ + + + [...]
--- OUTSIDE RECORDS SUMMARY | ~2020-02-07 | XMS | Encounter Summary ---
Demographics + + + | Address | [address] | | | [place] [address] | + + + | Home Phone [...] Team Providers + +------+ + | Care Sleeper Cutter Name | Role | Phone | + +------+ + | Lexx Estiven | PCP | | + +------+ + Encounter Details +--------+ + + + + | Date | Type | Department | Care Team | Description | +--------+ + + + + | 02/25/ | Documentati | Digestive Health | Kathleen Canchola, | | | 2017 | on | Center at [facility] [address] | ACN [address] | | | | | [address] | [facility] [place] | | | | | Mailcode: [place] | [address] | | | | | for Health and | [phone] | | | | | [facility], [facility] 2 | | | | | | [place], [place] | | | | | | [address] | | | | | | [phone] | | | +--------+ + + + [...]
--- OUTSIDE RECORDS SUMMARY | ~2020-02-07 | XMS | Encounter Summary ---
Demographics + + + | Address | [address] | | | [place] [address] | + + + | Home Phone [...] Team Providers + +------+ + | Care Unit Secretary Name | Role | Phone | + +------+ + | Florian Martinez I | PCP | Unavailable | + +------+ + Encounter Details +--------+ + + + + | Date | Type | Department | Care Team | Description | +--------+ + + + + | 05/28/ | Documentati | [facility] at [facility] 7th | Fawad Muhammad, | | | 2006 | on | Floor [address] | | | | | St Mailcode: [facility] | | | | | | [facility] [place], [place] | | | | | | [address] | | | | | | [phone] | | | +--------+ + + + [...]
--- OUTSIDE RECORDS SUMMARY | ~2020-02-07 | XMS | Encounter Summary ---
Demographics + + + | Address | [address] | | | [place] [address] | + + + | Home Phone [...] Team Providers + +------+ + | Care Laboratory Cureman Name | Role | Phone | + [...] | heterozygous female | | | | [facility] | | ([facility]) | | | | [address] [facility] | | | | | | Josephine | | | | | | [facility] | | | | | | 7th Floor [place], | | | | | | [place] [address] | | | | | | [phone] | | | +--------+------+ + + + [...] | | | PST | ([facility]) | results section. | + +--------+ + + + | CBC, WITH | Routin | 11/04/2017 | Fabry disease in | Results for this | | DIFFERENTIAL | e | 3:50 PM | heterozygous female | procedure are in the | | | | PST | ([facility]) | results section. | + +--------+ + + + | UA, DIPSTICK ONLY | Routin | 11/04/2017 | Fabry disease in | Results for this | | | e | 3:50 PM | heterozygous female | procedure are in the | | | | PST | ([facility]) | results section. | + +--------+ [...] + | [facility] | [address] | [place] [address] | | | SERVICES, CORE | [address] | | | + + + + + COBY MUNIZ ONLY (11/04/2017 3:50 PM PST) + + + + + + | Component | Value | Ref Range | Performed | Pathologist | | | | | At | Signature | + + + + + + | COLOR(UR) | Yellow | | [facility] | | | | | | LABORATORY | | | | | | JOCELYN, | | | | | | CORE [...] | [facility] | | | GRAVITY | [place] performed by | | LABORATORY | | [...] [facility] | [address] | [place] [address] | | | SERVICES, CORE | [address] | | | + + + + + documented in this encounter Visit Diagnoses + + | Diagnosis | + + | 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
--- OUTSIDE RECORDS SUMMARY | ~2020-02-07 | XMS | Encounter Summary ---
Demographics + + + | Address | [address] | | | [place] [address] | + + + | Home Phone [...] Team Providers + +------+ + | Care Chemical Process Equipment Operator Name | Role | Phone | + +------+ + | Lexx Estiven | PCP | | + +------+ + Encounter Details +--------+ + + + + | Date | Type | Department | Care Team | Description | +--------+ + + + + | 01/07/ | Documentati | Digestive Health | Kathleen Canchola, | | | 2017 | on | Center at [facility] [address] | ACN [address] | | | | | [address] | Ave [facility] [place] | | | | | Mailcode: [place] | [address] | | | | | for Health and | [phone] | | | | | [facility], [facility] [address] | | | | | | [place], [place] | | | | | | [address] | | | | | | | [...]
--- OUTSIDE RECORDS SUMMARY | ~2020-02-07 | XMS | Encounter Summary ---
Demographics + + + | Address | [address] | | | [place] [address] | + + + | Home Phone [...] Team Providers + +------+ + | Care Astronomy Department Chair Name | Role | Phone | + +------+ + | Fausto Sinclair | PCP | | + +------+ + Reason for Visit + + + | Reason | Comments | + + + | Prior Authorization | Approved for Fabrazyme until 06/14/2014 | | Request | | + + + Encounter Details +--------+ + + + + | Date | Type | Department | Care Team | Description | +--------+ + + + + | 01/11/ | Telephone | [facility] at [facility] 7th | Shaina Barrett | Prior Authorization | | 2013 | | Floor [address] | Request (Approved | | | | St Mailcode: [facility] | | for Fabrazyme until | | | | [place], [place] | | 06/14/2014) | | | | [address] | | | | | | [phone] | | | +--------+ + + + [...]
--- OUTSIDE RECORDS SUMMARY | ~2020-02-07 | XMS | Encounter Summary ---
Demographics + + + | Address | [address] | | | [place] [address] | + + + | Home Phone [...] Team Providers + +------+ + | Care Oral Surgeon Name | Role | Phone | + [...] | | 2020 | | Center at [place] [address] | | Review | | | | [address] | | | | | | Mailcode: Center | | | | | | [facility] and | | | | | | [facility] 2 | | | | | | [place], [place] | | | | | | [address] | | | | | | [phone] | | | +--------+ + + + [...]
--- OUTSIDE RECORDS SUMMARY | ~2020-02-07 | XMS | Encounter Summary ---
Demographics + + + | Address | [address] | | | [place] [address] | + + + | Home Phone [...] Team Providers + +------+ + | Care Maintenance Of Way Clerk Name | Role | Phone | [...] | [facility] | | | with NUTRITION MANAGER | | | | [facility] [address] | | | | | | | [address] | | | | | | | Mailcode: | | | | | | | [place] for | | | | | | | Health and | | | | | | | Healing, | | | | | | | Building [address] | | | | | | | [place], [place] | | | | | | | [address] | | | | | | | Phone: | | | | | | | [phone] | | | | | | | Fax: | | | | | | | [phone] | +--------+ + + + + + [...] | | [address] | Ave [place], [place] | ([facility]) (Primary Dx); | | | | Mailcode: Center | [address] | DM type 2 without | | | | for Health and | [phone] | retinopathy ([facility]); | | | | Healing, Building 2 | | Fabry disease ([facility]); | | | | [place], [place] | | Benign essential | | | | [address] | | HTN; | | | | [phone] | | Gastroesophageal | | | | [...] was also a no show 08/11/18. Trish MCEKNZIE SALES AND MARKETING ANALYST Bariatric Surgery NP documented in this encounter [...]
--- OUTSIDE RECORDS SUMMARY | ~2020-02-07 | XMS | Encounter Summary ---
Demographics + + + | Address | [address] | | | [place] [address] | + + + | Home Phone | | + + + | Preferred Language | Unknown | + + + | Marital Status | Single | + + + | Gnosticism Affiliation | Unknown | + + + | Race | Unknown | + + + | Ethnic Group | Unknown | + + + Author + + + | Author | [facility] | | | and [place] | + + + | Organization | [facility] | | | and [place] | + + + | Address | Unknown | + + + | Phone | Unavailable | + + + Support + + + + + | Name | Relationship | Address | Phone | + + + + + | Jordyn Miguel | ECON | NONE | | | | | [place] [address] | | + + + + + | Jordyn Miguel | ECON | NONE | + | | | | [place] [address] | | + + + + + Care Team Providers + +------+ + | Care Credit Cashier Name | Role | Phone | + +------+ + PCP | Unavailable | + +------+ + Encounter Details +--------+ + + + + | Date | Type | Department | Care Team | Description | +--------+ + + + + | 01/26/ | Hospital | [facility] | Atilio Grover, | | | 2005 | Encounter | [facility] | [address] | | | | | [facility] [address] | [place] | | | | | [place] [address], | [place] [address] | | | | | [place] [address] | [phone] | | | | | [phone] | | | +--------+ + + + [...]
--- OUTSIDE RECORDS SUMMARY | ~2020-02-07 | XMS | Encounter Summary ---
Demographics + + + | Address | [address] | | | [place] [address] | + + + | Home Phone [...] Team Providers + +------+ + | Care Powder Hand Name | Role | Phone | + +------+ + | Estiven Hallman DO | PCP | | + +------+ + Encounter Details +--------+ + + + + | Date | Type | Department | Care Team | Description | +--------+ + + + + | 03/23/ | Abstract | [facility] | Estiven Hallman DO | | | 2014 | | Department | [facility] | | | | | | Internal Medicin | | | | | | [address] [facility] | | | | | | [place] [address] | | | | | | [phone] | | | | | | | [...]
--- OUTSIDE RECORDS SUMMARY | ~2020-02-07 | XMS | Encounter Summary ---
Demographics + + + | Address | [address] | | | [place] [address] | + + + | Home Phone [...] Team Providers + +------+ + | Care Pillowcase Sewer Name | Role | Phone | + +------+ + PCP | Unavailable | + +------+ + Encounter Details +--------+ + + + + | Date | Type | Department | Care Team | Description | +--------+ + + + + | 10/15/ | Office | [facility] | Consult, [facility] | Progress Note | | 2004 | Visit-Trans | | | | | [...] as of this encounter Progress Notes Interface, Archives Technician In - 04/14/2005 12:36 AM PDT [id number] 10/15/2004 10/15/2004 [id number] IVA ZHU Clinic Date: 10/15/2004 Clinic Name Metabolic Services Discipline Pediatrics We had the pleasure of seeing Jarvis Miguel with her boyfriend in the Metabolic Clinic at [facility] on October 15, 2004. 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 Her expected date of confinement is May 06, 2005, and she has a planned section for the week prior to that date. She was seen in followup after our initial assessment when she was recommended to start enzyme replacement therapy. This was put on hold when we found out about Jarvis's because there is no safety data on the fetus for enzyme replacement in women. Since Jarvis became , she is complaining of more symptoms that she is attributing to her Fabry disease. Her nausea and vomiting is definitely worse than with her previous two pregnancies according to the patientup to the point that she is vomiting blood. 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 She also has abdominal pain, which can be seen with Fabry, but, the bloody stools would not be explained by Fabry disease. She also has daily pain and tingling in her hands and feet and also swelling. Her headaches became more frequent, and she had significant shortness of breath on walking up the stairs. Jarvis also complains of severe fatigue being forced to take days off from work; however, Jarvis's main concern now is that her eyesight is worsening. We have reassured her that Fabry disease rarely causes loss of vision. The main eye changes in Fabry disease is the corneal opacities or tortuous retinal vessels, and none of these would cause vision disturbances. Jarvis s followed closely by her optical engineer, now every two weeks because of her proteinuria. Fabry's disease can also cause proteinuria, even without . She had an echocardiogram earlier in September, but we have not received yet the report. Medications: William medications include: 1. vitamins. 2. Antinausea medicines. 3. Occasional Tylenol. She does not smoke or drink alcohol. Physical Examination: Her weight was 122.8 kg. Heart rate is 96 per minute. Her blood pressure in her left arm was 117/79 and in her right arm 140/90. She looked in no apparent distress but stated that the fluorescent light bothers her eyes. On head and neck examination, she has full extraocular movements, and her pupils were equal, round and reactive to light. Her fundi were normal showing no tortuous vessels. Heart sounds were normal. She had cold extremities and mild peripheral edema. Also, strength was normal and symmetrical, but sensation was different on both sides. Deep tendon reflexes were 2+ and symmetrical. There were no signs of cerebellar dysfunction, and gait was normal. Impression and Recommendations: Jarvis is a 24-year-old woman with Fabry disease who currently is more symptomatic than we initially assessed her last year in April. She has many vague, non-specific symptoms. It is very difficult to determine which of her symptoms might be due to Fabry disease, which might be related to , and which might represent somatization. The bottom line is that there is no treatment that we can offer at this point in terms of the Fabry disease, because ERT and pain medications used in Fabry are contraindicated during . It is a multisystem disease, and we recommend she have her blood pressure and proteinuria monitored. We also will ask for the echocardiogram report as sometimes Fabry's disease can cause cardiomyopathy and congestive heart failure. We do not think there is anything specific about Fabry disease that would make endoscopy or colonoscopy any more or less helpful than in someone without Fabry disease. Jarvis mentioned that she will have an amniocentesis done in November for diagnosis of Fabry. We sent information to Dr. Mckeon with the contact information for [facility] in [place] where the sample for testing would have to be sent. I suggested to him that he would need to contact [facility] well in advance to pre-arrange this testing. Jarvis's mutation has been found at [facility] previously. We would like to see her back two months after she delivers her baby, probably the first week in June 2005. Thank you for allowing us to participate in Jarvis's care. Estefani Taylor M.D. Fawad Muhammad M.D. Pediatric Mill Operator HeadFood Service Worker [facility] Pediatric, Molecular and Medical Genetics Head Division of Metabolism RDS/x29 [id number] cc: Dr. Mckeon Electronically signed by Fawad Muhammad 10-29-2004 12:56:01 PM documented i n this encounter Plan of Treatment Not on filedocumented as of this encounter Visit Diagnoses Not on filedocumented in this encounter"
--- OUTSIDE RECORDS SUMMARY | ~2020-02-07 | XMS | Encounter Summary ---
Demographics + + + | Address | [address] | | | [place] [address] | + + + | Home Phone [...] Providers + +------+ + | Care Certified Ophthalmic Assistant Name | Role | Phone | + +------+ + | Lexx Estiven | PCP | | + +------+ + Reason for Visit + + + | Reason | Comments | + + + | Lab Results | | + + + Encounter Details +--------+ + + + + | Date | Type | Department | Care Team | Description | +--------+ + + + + | 04/07/ | Telephone | [facility] at [facility] 7th | Marcellus Rodriguez MD | Lab Results | | 2013 | | Floor [address] | [address] [facility] | | | | | St Mailcode: CDR | Davin Alfonso | | | | | [facility] [place], [place] | [place], [place] | | | | | [address] | [address] | | | | | [phone] | [phone] | | | | | | | [...]
--- OUTSIDE RECORDS SUMMARY | ~2020-02-07 | XMS | Encounter Summary ---
Demographics + + + | Address | [address] | | | [place] [address] | + + + | Home Phone [...] Team Providers + +------+ + | Care Storeroom Attendant Name | Role | Phone | [...] | 05/13/ | Telephone | [facility] at [facility] 7th | Shaina Barrett | Medication | | 2016 | | Floor [address] | management ([place] | | | | St Mailcode: [facility] | | expiring in Jul) | | | | [place], [place] | | | | | | [address] | | | | | | [phone] | | | +--------+ + + + [...]
--- OUTSIDE RECORDS SUMMARY | ~2020-02-07 | XMS | Encounter Summary ---
Demographics + + + | Address | [address] | | | [place] [address] | + + + | Home Phone [...] Team Providers + +------+ + | Care Wrecker Operator Name | Role | Phone | + +------+ + | Lexx Estiven | PCP | | + +------+ + Encounter Details +--------+ + + + + | Date | Type | Department | Care Team | Description | +--------+ + + + + | 02/06/ | Documentati | [facility] at [facility] 7th | Shaina Barrett | | | 2016 | on | Floor [address] | | | | | St Mailcode: [facility] | | | | | | [facility] [place], [place] | | | | | | [address] | | | | | | [phone] | | | +--------+ + + + [...]
--- OUTSIDE RECORDS SUMMARY | ~2020-02-07 | XMS | Encounter Summary ---
Demographics + + + | Address | [address] | | | [place] [address] | + + + | Home Phone [...] Team Providers + +------+ + | Care Power Machine Operator Name | Role | Phone [...] as of this encounter Progress Notes Interface, Outfitter Cabin In - 04/14/2005 12:36 AM PDT [id number] 10/15/2004 10/15/2004 [id number] IVA ZHU [address] [id number] or October 15, 2004 Fab Delarosa M.D. RE: JARVIS ENRIQUE MR #: [id number] Dear Doctors: We saw your patient, Jarvis Enrique, in the Metabolic Clinic at [facility] on October 15, 2004. I saw Ms. Enrique together with Estefani Taylor M.D., Pediatric resident. We saw and examined Ms. Enrique together. Our findings are accurately documented in the resident's note. We discussed the case together. Doctors, thanks so much for referring Jarivs Enrique to the Metabolic Clinic. Please feel free to call, write, or e-mail if you have any questions or wish to discuss her care. My phone number is , fax , and e-mail [email or web address] Sincerely, Fawad Muhammad M.D. Harvest Worker Field Crop of Pediatrics and Molecular Medical Genetics e-mail:[email or web address] / [email or web address] [id number] [email or web address] [id number] / Jeni Mckeon documented i n this encounter Plan of Treatment Not on filedocumented as of this encounter Visit Diagnoses Not on filedocumented in this encounter"
--- OUTSIDE RECORDS SUMMARY | ~2020-02-07 | XMS | Encounter Summary ---
Demographics + + + | Address | [address] | | | [place] [address] | + + + | Home Phone [...] Team Providers + +------+ + | Care Crusher Supervisor Name | Role | Phone | [...] | [facility] | | | with RN EXAMINER | | | | [facility] [address] | | | | | | | [address] | | | | | | | Center for | | | | | | | Health and | | | | | | | Healing, | | | | | | | Building [address] | | | | | | | [place], [place] | | | | | | | [address] | | | | | | | Phone: | | | | | | | [phone] | | | | | | | Fax: | | | | | | | [phone] | +--------+ + + + + + Encounter Details +--------+---------+ + + + | Date | Type | Department | Care Team | Description | +--------+---------+ + + + | 03/19/ | Office | Digestive Health | [address] | Morbid obesity, | | 2017 | Visit | Center at [facility] [address] | [address] | unspecified obesity | | | | [facility] | Naty Isaacs [place], | type (HCC) (Primary | | | | for Health and | [place] [address] | Dx); DM type 2 | | | | Healing, Building 2 | | without retinopathy | | | | [facility] [place] | | ([facility]) | | | | [address] | | | | | | [phone] | | | +--------+---------+ + + + [...] in this encounter Progress Notes Venus Saldana RD - 03/19/2017 10:00 AM PDT Referring Provider: Estiven Hallman DO Outpatient Nutrition Clinic, Pre-Bariatric Surgery Evaluation Initial diet consultation prior to having Sleeve Gastrectomy. Documented Time of Visit: 10:20 until 11:19 (59 minutes [id number] with patient). 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 SUBJECTIVE: Pt comes in alone from [facility]. Lives with children, grandchildren, mother. Patient viewed online seminar prior to visit. Recent DM diagnosis, met with MARIA TERESA in [facility] ~2.5months ago and started making changes [...] Fabrys disease - upset stomach, diarrhea Weight supervisor records change the past year: lost ~10lbs with diet [...] the stairs more, has been going to [employer] in the past month. Food recall: Eating [...] handout (bariatric surgery notebook) with the charlette fitzgerald on post-surgery diet progression, sample menus, behavior [...] if followin g up with RD in [facility]. Patient verbalizes understanding that surgery is [...] 2 pre-surgery classes. 4. Call or send [employer] message to dietitian with any questions. Contact information was provided. Follow up with dietitian 1-2 weeks after surgery at first post-op visit. Venus Saldana RD, CNSC, LD [facility] Bariatrics [phone] documented in this enco unter Plan of Treatment Not on filedocumented as of this encounter Procedures + +--------+ + + + | Procedure Name | Priori | Date/Time | Associated Diagnosis | Comments | | | ty | | | | + +--------+ + + + | [place] MNT INITIAL | Routin | 03/19/2017 | [...]
--- OUTSIDE RECORDS SUMMARY | ~2020-02-07 | XMS | Encounter Summary ---
Demographics + + + | Address | [address] | | | [place] [address] | + + + | Home Phone [...] Team Providers + +------+ + | Care Guardian Family Member Name | Role | Phone | + [...] Josephine | | | | | | [facility] | | | | | | [address] [facility] | | | | | | Josephine | | | | | | [facility] | | | | | | 7th Floor [place], | | | | | | [place] [address] | | | | | | [phone] | | | +--------+------+ + + + [...] | included in the neutrophil count. | SERVICES, CORE | + + + + + + + + | Performing | Address | City/State/Zipcode | Phone Number | | Organization | | | | + + + + + | [facility] | [address] | [place] [address] | | | SERVICES, CORE | PARK [...] | | | LABORATORY | | | [facility] | | | SERVICES, | | | [...] the MDRD equation recommended by the | [facility] | | National Kidney Disease [...] | + + + + + | [facility] | [address] | [place] [address] | | | SERVICES, MARAL | [address] | | | + + + + + documented in this encounter Visit Diagnoses + + | Diagnosis | + + | Fabry disease (HCC) Lipidoses | + + documented in this encounter"
--- OUTSIDE RECORDS SUMMARY | ~2020-02-07 | XMS | Encounter Summary ---
Demographics + + + | Address | [address] | | | [place] [address] | + + + | Home Phone [...] Team Providers + +------+ + | Care State'S Attorney Name | Role | Phone | + [...] Closed | | [facility] | Procedures | Lexx, | Michael, | | | | Metabolic | 09/17/16 | DO Estiven | MD Marcellus | | | | | Michael | [address] | [address] [facility] | | | | | | Hospital | [facility] | | | | | | Internal | [address] [place], | | | | | | Medicin | [place] | | | | | | [address] | [address] | | | | | | Manolo Cartwright | Phone: | | | | | | [place], | [phone] | | | | | | [place] [address] | Fax: | | | | | | Phone: | [phone] | | | | | | [phone] | | | | | | | Fax: | | | | | | | [phone] | | +--------+--------+ + + + + Encounter Details +--------+---------+ + + + | Date | Type | Department | Care Team | Description | +--------+---------+ + + + | 09/17/ | Office | [facility] 7[facility] | Marcellus Rodriguez MD | Fabry disease in | | 2017 | Visit | Floor [address] | [address] [facility] | heterozygous female | | | | St Mailcode: [facility] | [address] | ([facility]) (Primary Dx) | | | | [facility] [place], [place] | [place], [place] | | | | | [address] | [address] | | | | | [phone] | [phone] | | | | | | | [...] + + + | Blood Pressure | 126/98 | 09/17/2016 1:22 PM | has high bp ; on | | | | PST | meds | + + + + + | [...] + + + + | Weight | 168.7 kg (372 lb) | 09/17/2016 1:22 PM | | | | | PST | | + + + + + | Height | - | - | | + + + + + | Body Mass Index | 64.29 | 11/24/2012 1:06 PM | | | | | PDT | | + + + + + documented in this encounter Progress Notes Marcellus Rodriguez MD - 09/17/2016 3:30 PM PST Mrs. Miguel is a 36 year old woman with Fabry disease on ERT. She comes for routine follow- up. There are no specific new issues/concerns. She is stable and reasonably functional. Her joaquin n problem is the GI tract. She has fairly significant chronic diarrhea. This is not worsenin g, but it is also not improving with ERT. She is receiving enzyme every 2 weeks at the maxim um dose for her ideal body weight. Since she has a very high BMI, the dose on a per kg basis is fairly low. Review of systems: Current Outpatient Prescriptions on [...] mg by mouth once daily at bedtime. CARAFATE 100 mg/mL oral suspension 0 estradiol 1 mg oral tablet 1 L-Methylfolate (DEPLIN) 15 mg Oral Tablet Take 15 mg by mouth once daily. LATUDA 120 mg oral tablet 0 MELOXICAM (MOBIC ORAL) Take 15 mg by mouth once daily. omeprazole (PRILOSEC) 40 mg Oral capsule,delayed release(DR/EC) Take 40 mg by mouth thr ee times daily. ondansetron 8 mg Oral tablet Take 8 mg by mouth. PLUS, CALCIUM CARB, 27 mg iron- 1 mg oral tablet 0 promethazine 25 mg Oral Tablet Take 25 mg by mouth two times daily. traMADol 50 mg oral tablet 0 venlafaxine 75 mg oral tablet extended release 24hr 0 No current facility-administered medications on file prior to visit. Diet: Normal diet. Neurological: No seizures, no muscle cramps. Respiratory:no dyspnea, co ugh. GI: Chronic watery diarrhea, 5+ stools per day. : No dysuria, normal frequency of ur ination. Normal urine color. Skin: No hair loss, no itching, no rashes. No increased bruisin g. Musculoskeletal: Normal strength, no cramping. Vision: normal vision. Hearing: no impairm ent.Habits: Does not smoke; does not have heavy alcohol use. Sleep: no disturbance. Energy l evel/ability to work: low energy, no change to prior visits. Physical exam: Wt 168.7 kg (372 lb), BP 126/98[has high bp ; on meds[, BMI 64.29 kg/(m^2). Skin: clear. No angiokeratomas visible Musculoskeletal: Full range of motion in all joints, no contractures, normal strength, normal bulk, no tenderness. 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 She does not have any worsening of her disease, but remains stably symptomatic. It is difficult to know whether her GI symptoms are due to F abry disease or some other intestinal malady. Plan: 1) Continue ERT 2) RTC in one year. 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
--- OUTSIDE RECORDS SUMMARY | ~2020-02-07 | XMS | Encounter Summary ---
Demographics + + + | Address | [address] | | | [place] [address] | + + + | Home Phone | | + + + | Preferred Language | Unknown | + + + | Marital Status | Single | + + + | Faith Affiliation | Unknown | + + + [...] Team Providers + +------+ + | Care Electromechanical Technologist Name | Role | Phone | + +------+ + | Lexx Estiven | PCP | | + +------+ + Reason for Visit + + + | Reason | Comments | + + + | Prior Authorization | PA for [facility] for Fabrazyme infusions received | | Request | | + + + Encounter Details +--------+ + + + + | Date | Type | Department | Care Team | Description | +--------+ + + + + | 10/09/ | Telephone | [facility] at [facility] 7th | Shaina Barrett | Prior Authorization | | 2017 | | Floor [address] | Angelina, BRYCE | Request ([place]ICO for | | | | St Mailcode: [facility] | | [facility] for | | | | [facility] [place], [place] | | Fabrazyme infusions | | | | [address] | | received) | | | | [phone] | | | +--------+ + + + [...]
--- OUTSIDE RECORDS SUMMARY | ~2020-02-07 | XMS | Encounter Summary ---
Demographics + + + | Address | [address] | | | [place] [address] | + + + | Home Phone [...] Team Providers + +------+ + | Care Loom Operator Name | Role | Phone | [...] as of this encounter Progress Notes Interface, Strapper In - 04/14/2005 9:07 AM PDT [id number] IVA ZHU [facility] [address], [place], [place] [address] September 10, 2004 RE: Jarvis Miguel MR# [...] about Fabry disease. Sincerely, Fawad Muhammad MD Client Leader Department of Pediatrics Head--Division of Metabolism [address] [place] [address] Ferny--[facility] [place] [address] PH# FAX# email:[email or web address] Enc: Article Cc: Dr. Núñez, PCP KOKO/marie P documented i n this encounter Plan of Treatment Not on filedocumented as of this encounter Visit Diagnoses Not on filedocumented in this encounter"
--- OUTSIDE RECORDS SUMMARY | ~2020-02-07 | XMS | Encounter Summary ---
Demographics + + + | Address | [address] | | | [place] [address] | + + + | Home Phone [...] Team Providers + +------+ + | Care Glass Production Machine Operator Name | Role | Phone | + +------+ + | Mikki Barajas MD | PCP | | + +------+ + Encounter Details +--------+ + + + + | Date | Type | Department | Care Team | Description | +--------+ + + + + | 06/17/ | Ancillary | Registration [id number] | | | | 2004 | Reg[address]ratio | [address] | | | | | [address] | [address] Mailcode: RPB07 | | | | | | [place], [place] | | | | | | [address] | | | | | | [phone] | | | +--------+ + + + [...]
--- OUTSIDE RECORDS SUMMARY | ~2020-02-07 | XMS | Encounter Summary ---
Demographics + + + | Address | [address] | | | [place] [address] | + + + | Home Phone [...] Providers + +------+ + | Care Automotive Lot Attendant Name | Role | Phone | + +------+ + | Estiven Hallman DO | PCP | | + +------+ + Encounter Details +--------+--------+ + + + | Date | Type | Department | Care Team | Description | +--------+--------+ + + + | 06/04/ | Travel | | | | | [...]
--- OUTSIDE RECORDS SUMMARY | ~2020-02-07 | XMS | Encounter Summary ---
Demographics + + + | Address | [address] | | | [place] [address] | + + + | Home Phone [...] Providers + +------+ + | Care Concrete Pile Driver Operator Name | Role | Phone | + +------+ + | Lexx Estiven | PCP | | + +------+ + Encounter Details +--------+ + + + + | Date | Type | Department | Care Team | Description | +--------+ + + + + | 06/16/ | Document-Sc | Health Information | Unknown . | | | 2017 | anned | Services [address] | | | | | [address] | | | | | | Mailcode: OP17A | | | | | | [facility] | | | | | | [place], [place] | | | | | | [address] | | | | | | [phone] | | | +--------+ + + + [...]
--- OUTSIDE RECORDS SUMMARY | ~2020-02-07 | XMS | Encounter Summary ---
Demographics + + + | Address | [address] | | | [place] [address] | + + + | Home Phone [...] Providers + +------+ + | Care Hydraulic Barker Operator Name | Role | Phone | + +------+ + | Fausto Sinclair | PCP | | + +------+ + Encounter Details +--------+ + + + + | Date | Type | Department | Care Team | Description | +--------+ + + + + | 06/24/ | Documentati | [facility] at [facility] 7th | Deana Jimenez MD | | | 2012 | on | Floor [address] | [address] | | | | | St Mailcode: [facility] | Nat[address] Isa[address] [place], | | | | | [facility] [place] | [place] [address] | | | | | [address] | [phone] | | | | | [phone] | | | +--------+ + + + [...]
--- OUTSIDE RECORDS SUMMARY | ~2020-02-07 | XMS | Encounter Summary ---
Demographics + + + | Address | [address] | | | [place] [address] | + + + | Home Phone [...] Providers + +------+ + | Care Park Interpretive Ranger Name | Role | Phone | [...] + + + | Closed | | Light Bulb Replacer | Diagnoses | Deidre Nguyen, | Ent | | | | | Shadi | [address] | Audiology Ppv | | | | | disease in | [address] | [address] | | | | | heterozygous | [address] | [address] | | | | | female | [facility] [place] | Physician's | | | | | ([facility]) | [address] | Anjali, | | | | | Procedures | Phone: | 2nd floor | | | | | CONSULT TO | [phone] | [facility] [place] | | | | | AUDIOLOGY | Fax: | [address] | | | | | | [phone] | Phone: | | | | | | | [phone] | | | | | | | Fax: | | | | | | | [phone] | +--------+--------+ + + + + Encounter [...] | | | | [address] | [place] [address] | | | | | Physician's | [phone] | | | | | Anjali, [facility] floor | | | | | | [place], [place] | | | | | | [address] | | | | | | [phone] | | | +--------+ + + + [...] Heraclio Lux AuD,CCC-A - 01/07/2019 10:00 AM [facility] ENT Audiology Clinic NAME: Jarvis Miguel Date of : 1980 MR#: [id number] Primary Care Provider: Estiven Hallman DO Referral Source: Estiven Hallman DO [facility] Internal Medicin [address] [facility] [place] [address] Olivera: Sisters Date of Service: 01/07/19 AUDIOLOGY CLINIC Jarvis Miguel, 38 y.o., was seen for a comprehensive audiological evaluation today per Dr. Minerva Nguyen MD in the [facility] Metabolic Clinic. 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 A speech salon receptionist threshold was obtained at 20 dB HL and is in good agreement with responses to pure-tone stimuli. Word recognition ability was 84% when words were presented at a comfortable level of 50 dB HL. Left Ear: A mostly mild SNHL. A speech salon receptionist threshold was obtained at 30 dB HL and is in good agreement with responses to pure-tone stimuli. Word recognition ability was 100% when words were presented at a comfortable level of 60 dB HL. [facility] for details. A possible trial with [...] | + +--------+ + + + | MS COMPREHENSIVE | Routin | 01/08/2019 | Sensorineural [...]
--- OUTSIDE RECORDS SUMMARY | ~2020-02-07 | XMS | Encounter Summary ---
Demographics + + + | Address | [address] | | | [place] [address] | + + + | Home Phone [...] Providers + +------+ + | Care Supervisor Hide House Name | Role | Phone | + [...] Letters | | 2006 | scribed | [facility] [address] | | | | | | Anjali Todd | | | | | | [address] | | | | | | [address] | | | | | | [place], [place] | | | | | | [address] | | | | | | [phone] | | | +--------+ + + + [...] as of this encounter Progress Notes Interface, Casing Operator In - 11/27/2006 2:35 AM PDT [id number] 11/25/2006 11/25/2006 [id number] [id number] [place] [id number] or November 25, 2006 Florian Martinez [facility] [address] [place] [address] RE: JARVIS ENRIQUE MR #: [id number] Dear Dr. Martinez, We saw your patient, Jarvis Enrique, in the Metabolic Clinic at [facility] on November 25, 2006. Jarvis has Fabry [...] Demerol. This was all done in the [place] area, and I do not have copies [...] symmetric bilaterally. Gait normal. Cerebellar function intact. Egajzw-lu-fvvh testing normal. Impression: A 26-year-old with Fabry [...] be good for her to see a corrugated sheet material sheeter and make sure that she does not have any underlying condition causing her abdominal pain. If there is not a corrugated sheet material sheeter who can see her in the [facility] in the near future, then a general surgeon would be the next choice. Secondly, I recommend consider referring her to the [facility] for a pelvic exam and to make [...] addition, enzyme replacement therapy should, in the assistant casino shift manager, help with a lot of these signs [...] or wish to discuss her care. E-mail: [email or web address] Sincerely, Fawad Muhammad M.D. Professor of Pediatrics and Molecular Medical Genetics e-mail:[email or web address] / [id number] / [id number] / [id number] / documented in this encounter Plan of Treatment Not on filedocumented as of this encounter Visit Diagnoses Not on filedocumented in this encounter"
--- OUTSIDE RECORDS SUMMARY | ~2020-02-07 | XMS | Encounter Summary ---
Demographics + + + | Address | [address] | | | [place] [address] | + + + | Home Phone [...] Providers + +------+ + | Care Manager Bench Name | Role | Phone | + +------+ + | Mikki Barajas MD | PCP | | + +------+ + Reason for Visit +--------+ + | Reason | Comments | +--------+ + | Other | See documentation | +--------+ + Encounter Details +--------+ + + + + | Date | Type | Department | Care Team | Description | +--------+ + + + + | 05/25/ | Telephone | [facility] at [facility] 7th | Fawad Muhammad, | Other (See | | 2007 | | Floor [address] | documentation) | | | | St Mailcode: [facility] | | | | | | [facility] [place], [place] | | | | | | [address] | | | | | | [phone] | | | +--------+ + + + [...]
--- OUTSIDE RECORDS SUMMARY | ~2020-02-07 | XMS | Encounter Summary ---
Demographics + + + | Address | [address] | | | [place] [address] | + + + | Home Phone [...] Team Providers + +------+ + | Care Corporate Securities Research Analyst Name | Role | Phone | [...] | 2019 | Visit | Center at [facility] [address] | | to excess calories | | | | [address] | | ([facility]) (Primary Dx) | | | | Mailcode: Center | | | | | | [facility] and | | | | | | [facility] 2 | | | | | | [place], [place] | | | | | | [address] | | | | | | [phone] | | | +--------+---------+ + + + [...] encounter Progress Notes Kathe Starks RD - 06/04/2019 2:00 PM PDTFormatting of this note might be different fr om the original. Referring Provider: Estiven Hallman DO Outpatient Nutrition Clinic, Pre-Bariatric Surgery Class Pre-Surgery Class #1 prior to having Nessa-En-Y gastric bypass surgery or Sleeve Gastrectomy . Documented Time of Class: 60 minutes wyoh-sn-mtap with patient OBJECTIVE: Height: Ht Readings from [...] Kathe Starks, MS, RDN, CSOWM, LD, CDE [facility] Bariatrics [phone] documented in this e ncounter Plan of Treatment Not on filedocumented as of this encounter Visit Diagnoses + + | Diagnosis | + + | Morbid obesity due to excess calories (HCC) - Primary | + + documented in this encounter
--- OUTSIDE RECORDS SUMMARY | ~2020-02-07 | XMS | Encounter Summary ---
Demographics + + + | Address | [address] | | | [place] [address] | + + + | Home Phone [...] Author + + + | Author | [facility] | + + + | Organization | [facility] | + + + | Address | Unknown | + + + | Phone | Unavailable | + + + Support + + +---------+ + | Name | Relationship | Address | Phone | + + +---------+ + | John Miguel | ECON | Unknown | | + + +---------+ + Care Team Providers + +------+ + | Care Hvac Services Professional Name | Role | Phone | + [...] + + + | Closed | | Velvet Cutter | Diagnoses | Deidre Nguyen, | Ent | | | | | Shadi | [address] | Audiology Ppv | | | | | disease in | Paxton Davin | [address] | | | | | heterozygous | [address] | [address] | | | | | female | [facility] [place] | Physician's | | | | | ([facility]) | [address] | Anjali, | | | | | Procedures | Phone: | 2nd floor | | | | | CONSULT TO | [phone] | [facility] [place] | | | | | AUDIOLOGY | Fax: | [address] | | | | | | [phone] | Phone: | | | | | | | [phone] | | | | | | | Fax: | | | | | | | [phone] | +--------+--------+ + + + + Reason [...] | | | | | Hospital | [place] | | | | | | Internal | [facility] | | | | | | Medicin | Children's | | | | | | [address] | Hospital 7th | | | | | | [address] | Floor | | | | | | [place], | [place], [place] | | | | | | [place] [address] | [address] | | | | | | Phone: | Phone: | | | | | | [phone] | [phone] | | | | | | Fax: | Fax: | | | | | | [phone] | [phone] | +--------+--------+ + + + + Encounter Details +--------+---------+ + + + | Date | Type | Department | Care Team | Description | +--------+---------+ + + + | 07/07/ | Office | Metabolic Genetics | Deidre Nguyen MD | 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[facility] | [address] [facility] | heterozygous female | | | | [address] | [address] [place], | ([facility]) (Primary Dx) | | | | [place] | [place] [address] | | | | | [facility] | [phone] | | | | | 7th Floor [place], | | | | | | [place] [address] | | | | | | [phone] | | | +--------+---------+ + + + [...] AM PDT REFERRING PROVIDER: Estiven Hallman DO [facility] Internal Medicin [address] [place] [address] PRIMARY CARE PROVIDER: Estiven Hallman DO REASON FOR VISIT: Chief Complaint Patient presents with Follow-up visit HPI and PMH: GLA 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 Yes, started prior to 2006, then stopped for , and restarted after 2009 Infusion Location: [facility] infusion facility Date of Last Evaluation: 10/2017 Jarvis Miguel is a 38 y.o. 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 DNA confirmed the above mutation at [facility] ab, but the report just says the [...] reviewed by me at this visit ut [facility] clinic's patient history form. Pertinent positives are [...] and coordination of care. Deidre Nguyen MD [facility] Metabolic Clinic [address] [place] [address] documented in this encounte r [...] | + + + + + | [facility] | [address] | [place] [address] | | | SERVICES, CORE | JAMIA [...] | + + + + + | [facility] | | | | + + + + + | [facility] | [address] | [place] [address] | | | SERVICES, CORE | PARK [...] [place] | | | | | | [address] | | | | + + + [...] + + | [facility] | [address] [facility] | [place] [address] | | | SERVICES, MARAL | JAMIA [...] | | LAB | | | | [place] [address] | | | | + + + [...] | + + + + + | [facility] | [address] | [place] [address] | | | SERVICES, CORE | PARK [...]
--- OUTSIDE RECORDS SUMMARY | ~2020-02-07 | XMS | Encounter Summary ---
Demographics + + + | Address | [address] | | | [place] [address] | + + + | Home Phone [...] Team Providers + +------+ + | Care Township Clerk Name | Role | Phone | [...] ) | | 2018 | | at [facility] | [address] [facility] | | | | | [address] | Naty Isaacs [place], | | | | | [place] | [place] [address] | | | | | [facility] | [phone] | | | | | [address] [place] [address], | | | | | | [place] [address] | | | | | | [phone] | | | +--------+ + + + [...]
--- OUTSIDE RECORDS SUMMARY | ~2020-02-07 | XMS | Encounter Summary ---
Demographics + + + | Address | [address] | | | [place] [address] | + + + | Home Phone [...] Team Providers + +------+ + | Care Special Education Bus Driver Name | Role | Phone | + +------+ + | Estiven Hallman | PCP | | + +------+ + Encounter Details +--------+------+ + + + | Date | Type | Department | Care Team | Description | +--------+------+ + + + | 01/12/ | Lab | Laboratory at [facility] | | | | 2019 | | [address] | | | | | | [place], [place] | | | | | | [address] | | | | | | [phone] | | | +--------+------+ + + + [...] | + + + + + | [facility] | [address] | [place] [address] | | | MARAL BANKS | JAMIA [...] B: | | | | | | [employer].com/CSPerformed | | | | | | by [facility],[address] | | | | | | [address], [facility],[place] | | | | | | [address] | | | | | | [phone].aruplab. | | | | | | Last [...] [facility] | [address] | [place], [place] | | | UNIV P[address] - INTFC | | [address] | | + + + + + [...] | + + + + + | [facility] | [address] | [place] [address] | | | MARAL BANKS | JAMIA [...] | + + + + + | [facility] | [address] | [place] [address] | | | SERVICES, CORE | PARK [...] | + + + + + | [facility] | [address] | [place] [address] | | | SERVICES, CORE | JAMIA [...] [facility] | [address] | [place] [address] | | | SERVICES, CORE | PARK [...] B: | | | | | | [employer].RedShelf/CSPerformed | | | | | | by [employer],[address] | | | | | | [address], [facility],[place] | | | | | | [address] | | | | | | [phone].[employer]. | | | | | | mountain[facility] healthcareLast MD, | | | | | | [...] [facility] | [address] | [place], [place] | | | UN[facility] P[facility] - INTFC | | [address] | | + + + + + [...] | + + + + + | [facility] | [address] | [place] [address] | | | SERVICES, CORE | PARK [...] | | | | | determined by [employer] | | | | | | [employer]. See | | | | | | Compliance Statement B: | | | | | | [employer]/CSPerformed | | | | | | by [facility],[address] | | | | | | [address], [facility],[place] | | | | | | [address] | | | | | | [phone].Convoke Systemslab. | | | | | | mountainstar healthcareLast MD, | | | | | | Lab. Director | | | | + + + + + + + + | Specimen | + + | Blood - Blood | | (substance) | + + + + + + + | Performing | Address | City/State/[facility] Medical Centercode | Phone Number | | Organization | | | | + + + + + | [facility] | [address] | [place], [place] | | | UN[address] P[address] - INTFC | | [address] | | + + + + + [...] [facility] | [address] | [place] [address] | | | JOCELYN, MARAL | PARK [...] | + + + + + | [facility] | [address] | [place] [address] | | | SERVICES, SPECIAL | JAMIA [...] and | 50 - 200 ng/mL | [facility] | | | | Female >18 [...] [facility] | [address] | [place] [address] | | | MARAL BANKS | [address] | | | + + + + + documented in this encounter Visit Diagnoses Not on filedocumented in this encounter"
--- OUTSIDE RECORDS SUMMARY | ~2020-02-07 | XMS | Encounter Summary ---
Demographics + + + | Address | [address] | | | [place] [address] | + + + | Home Phone [...] Team Providers + +------+ + | Care Lay Ups Assembler Name | Role | Phone | [...] | heterozygous female | | | | [facility] | | ([facility]) | | | | [address] | | | | | | [place] | | | | | | [facility] | | | | | | 7th Floor [place], | | | | | | [place] [address] | | | | | | [phone] | | | +--------+------+ + + + [...] the | | | | PDT | ([facility]) | results section. | + +--------+ + + + | PROTEIN, URINE | Routin | 07/06/2019 | Fabry disease in | Results for this | | | e | 11:44 AM | heterozygous female | procedure are in the | | | | PDT | ([facility]) | results section. | + +--------+ + + + | CREATININE, URINE | Routin | 07/06/2019 | Fabry disease in | Results for this | | | e | 11:44 AM | heterozygous female | procedure are in the | | | | PDT | ([facility]) | results section. | + +--------+ + + + | [place] HOLD - LAB | Routin | 07/06/2019 | Fabry disease in | Results for this | | USE ONLY | e | 11:42 AM | heterozygous female | procedure are in the | | | | PDT | ([facility]) | results section. | + +--------+ + + + | RAINBOW HOLD TUBE - | Routin | 07/06/2019 | Fabry disease in | | | GREEN TOP | e | 11:42 AM | heterozygous female | | | | | PDT | ([facility]) | | + +--------+ + + + | LAB OTHER | Routin | 07/06/2019 | Fabry disease in | Results for this | | | e | 11:42 AM | heterozygous female | procedure are in the | | | | PDT | ([facility]) | results section. | + +--------+ + + + | LAB OTHER | Routin | 07/06/2019 | Fabry disease in | Results for this | | | e | 11:42 AM | heterozygous female | procedure are in the | | | | PDT | ([facility]) | results section. | + +--------+ + [...] [facility] | [address] | [place] [address] | | | SERVICES, CORE | JAMIA [...] [facility] | [address] | [place] [address] | | | SERVICES, CORE | PARK [...] | + + + + + | [facility] | [address] | [place] [address] | | | SERVICES, CORE | JAMIA [...] LABORATORY | [address] | [place] [address] | | | SERVICES, CORE | JAMIA [...] | | LAB | | | | [place] [address] | | | | + + + [...] | + + + + + | [facility] | [address] | [place] [address] | | | JOCELYN, MARAL | JAMIA [...] | | LAB | | | | [place] [address] | | | | + + + [...] [facility] | [address] | [place] [address] | | | JOCELYN, MARAL | JAMIA [...]
--- OUTSIDE RECORDS SUMMARY | ~2020-02-07 | XMS | Encounter Summary ---
Demographics + + + | Address | [address] | | | [place] [address] | + + + | Home Phone [...] Author + + + | Author | [facility] | + + + | Organization | [facility] | + + + | Address | Unknown | + + + | Phone | Unavailable | + + + Support + + +---------+ + | Name | Relationship | Address | Phone | + + +---------+ + | John Miguel | ECON | Unknown | | + + +---------+ + Care Team Providers + +------+ + | Care Stationary Engineer Apprentice Name | Role | Phone | [...] [address] | | | | | | [place], [place] | | | | | | [address] | | | +--------+ + + + [...]
--- OUTSIDE RECORDS SUMMARY | ~2020-02-07 | XMS | Encounter Summary ---
Demographics + + + | Address | [address] | | | [place] [address] | + + + | Home Phone [...] Providers + +------+ + | Care Hardware Installation Coordinator Name | Role | Phone | + +------+ + | Florian Martinez I | PCP | Unavailable | + +------+ + Encounter Details +--------+ + + + + | Date | Type | Department | Care Team | Description | +--------+ + + + + | 11/25/ | Office | [facility] 7th | Fawad Muhammad, | OTHER RECORD | | 2006 | Visit-ECX | Floor [address] | | | | | St Mailcode: [facility] | | | | | | [facility] [place], [place] | | | | | | [address] | | | | | | [phone] | | | +--------+ + + + [...]
--- OUTSIDE RECORDS SUMMARY | ~2020-02-07 | XMS | Encounter Summary ---
Demographics + + + | Address | [address] | | | [place] [address] | + + + | Home Phone [...] Team Providers + +------+ + | Care Ointment Mill Tender Name | Role | Phone | + +------+ + | Estiven Hallman DO | PCP | | + +------+ + Encounter Details +--------+--------+ + + + | Date | Type | Department | Care Team | Description | +--------+--------+ + + + | 07/01/ | Travel | | | | | [...]
--- OUTSIDE RECORDS SUMMARY | ~2020-02-07 | XMS | Encounter Summary ---
Demographics + + + | Address | [address] | | | [place] [address] | + + + | Home Phone [...] Providers + +------+ + | Care Service Coordinator Name | Role | Phone | [...] | 08/23/ | Documentati | [facility] 7th | Shaina Barrett | Prior Authorization | | 2016 | on | Floor [address] | BRYCE Alfaro | Request - Medication | | | | St Mailcode: [facility] | | (Approved Fabrazyme | | | | [place] | | 27 visits until | | | | [address] | | 08/19/17 ) | | | | [phone] | | | +--------+ + + + [...]
--- OUTSIDE RECORDS SUMMARY | ~2020-02-07 | XMS | Encounter Summary ---
Demographics + + + | Address | [address] | | | [place] [address] | + + + | Home Phone [...] Providers + +------+ + | Care Certified Dietary Manager Name | Role | Phone | [...] [id number] | | | | | | [facility] | | | | | | [place], [place] | | | | | | [address] | | | | | | [phone] | | | +--------+ + + + [...]
--- OUTSIDE RECORDS SUMMARY | ~2020-02-07 | XMS | Encounter Summary ---
Demographics + + + | Address | [address] | | | [place] [address] | + + + | Home Phone [...] Team Providers + +------+ + | Care Digital Sales Representative Name | Role | Phone [...] | 11/08/ | Telephone | [facility] 7th | Fawad Muhammad, | | | 2009 | | Floor [address] | | | | | St Mailcode: [facility] | | | | | | [facility] [place], [place] | | | | | | [address] | | | | | | [phone] | | | +--------+ + + + [...]
--- OUTSIDE RECORDS SUMMARY | ~2020-02-07 | XMS | Encounter Summary ---
Demographics + + + | Address | [address] | | | [place] [address] | + + + | Home Phone [...] Team Providers + +------+ + | Care Emergency Services Dispatcher Name | Role | Phone | + +------+ + | Florian Martinez I | PCP | Unavailable | + +------+ + Reason for Visit +--------+ + | Reason | Comments | +--------+ + | Other | Pt has questions regarding Fabrazyme and | +--------+ + Encounter Details +--------+ + + + + | Date | Type | Department | Care Team | Description | +--------+ + + + + | 02/24/ | Telephone | [facility] at [facility] 7th | SabinaFawad sterling, | Other (Pt has | | 2006 | | Floor [address] | MD | questions regarding | | | | St Mailcode: [facility] | | Jennifer and | | | | [facility] [employer], [place] | | ) | | | | [address] | | | | | | [phone] | | | +--------+ + + + [...]
--- OUTSIDE RECORDS SUMMARY | ~2020-02-07 | XMS | Encounter Summary ---
Demographics + + + | Address | [address] | | | [place] [address] | + + + | Home Phone | | + + + | Preferred Language | Unknown | + + + | Marital Status | Single | + + + | Scientologist Affiliation | Unknown | + + + | Race | Unknown | + + + | Ethnic Group | Unknown | + + + Author + + + | Author | [facility] | | | and [place] | + + + | Organization | [facility] | | | and [place] | + + + | Address | Unknown | + + + | Phone | Unavailable | + + + Support + + + + + | Name | Relationship | Address | Phone | + + + + + | Jordyn Miguel | ECON | NONE | | | | | [place] [address] | | + + + + + | Jordyn Miguel | ECON | NONE | + | | | | [place] [address] | | + + + + + Care Team Providers + +------+ + | Care Clinical Trial Head Name | Role | Phone | + +------+ + PCP | Unavailable | + +------+ + Encounter Details +--------+ + + + + | Date | Type | Department | Care Team | Description | +--------+ + + + + | 10/12/ | Hospital | [facility] | | Genetic Counseling | | 2009 | Encounter | CONVERSION DEP [address] | | [address] | | | | | | [place], [place] | | | | | | [address] | | | | | | [phone] | | | +--------+ + + + [...]
--- OUTSIDE RECORDS SUMMARY | ~2020-02-07 | XMS | Clinical Summary ---
Demographics + + + | Address | [address] | | | [place] [address] | + + + | Home Phone | | + + + | Preferred Language | Unknown | + + + | Marital Status | Single | + + + | Bahai Affiliation | Unknown | + + + | Race | Unknown | + + + | Ethnic Group | Unknown | + + + Author + + + | Author | [facility] (Historical as of | | | 05-01-19) | + + + | Organization | [facility] (Historical as of | | | 05-01-19) | + + + | Address | Unknown | + + + | Phone | Unavailable | + + + Support + + + + + | Name | Relationship | Address | Phone | + + + + + | Jordyn Enrique | ECON | NONE | | | | | [place] [address] | | + + + + + Care Team Providers + +------+ + | Care Air Sealing Technician Name | Role | Phone | + +------+ + | Christina Rain MD | PP | | + +------+ + Allergies Not on File Current Medications Not on file Active Problems + + + | Problem | Noted Date | + + + | Fabry disease (HCC) | | + + + + + | Overview: with acroparesthesias (Deidre Nguyen MD, [facility] Metabolic | | [facility]) | + + + +---+ | Morbid obesity (HCC) | | + +---+ | Diabetes mellitus type 2 in obese (HCC) | | + +---+ | Hyperlipidemia associated with type 2 diabetes mellitus (HCC) | | + +---+ | Essential hypertension | | + +---+ | Bipolar 1 disorder (HCC) | | + +---+ Family History + + +------+ + | Medical History | Relation | Name | Comments | + + +------+ + | Coronary Artery | Mother | | CABG | | Disease | | | | + + +------+ + | Fabry's disease | Mother | | | + + +------+ + | Heart Disease | Mother | | cardiac arrest | + + +------+ + | Fabry's disease | Son | | | + + +------+ + | Fabry's disease | Son | | | + + +------+ + + +------+--------+ + | Relation | Name | Status | Comments | + +------+--------+ + | Daughter | | Alive | | + +------+--------+ + | Daughter | | Alive | | + +------+--------+ + | Mother | | | | + +------+--------+ + | Son | | Alive | | + +------+--------+ + | Son | | Alive | | + +------+--------+ + Social History + +-------+ +--------+------+ | [...] on file | | + + + Plan of Treatment + + + + + | Health Maintenance | Due Date | Last Done | Comments | + + + + + | Vaccine: | | | | | Dtap/Tdap/Td (1 - | 8 | | | | Tdap) | | [...] filefrom Last 3 Months Insurance + +--------+ +------+-------+ + | Payer | Benefi | Subscriber | Type | Phone | Address | | | t Plan | ID | | | | | | / | | | | | | | Group | | | | | + +--------+ +------+-------+ + | MEDICARE | MEDICA | [id number] | | | [address] | | | RE | | | | [place] [address] | | | IP-OP | | | | | + +--------+ +------+-------+ + | MEDICAID | EASTER | [id number] | | | [address] | | | N | | | | [place] | | | [place] | | | | [address] | | | HOSPITAL TECHNICIAN | | | | | + +--------+ +------+-------+ + + +--------+ +--------+ + + | Guarantor Name | Accoun | Relation to | Date | Phone | Billing Address | | | t Type | Patient | of | | | | | | | | | | + +--------+ +--------+ + + | JARVIS ENRIQUE | Person | Self [birth year] Home: | [address] | | | al/Fam | | 1979 | [phone] | [place] | | | andrew | | | [address] | [address] | + +--------+ +--------+ + +"
--- OUTSIDE RECORDS SUMMARY | ~2020-02-07 | XMS | Encounter Summary ---
Demographics + + + | Address | [address] | | | [place] [address] | + + + | Home Phone [...] Team Providers + +------+ + | Care Narcotics And Vice Detective Name | Role | Phone | + [...] | 01/04/ | Documentati | [facility] 7th | Shaina Barrett | Medication | | 2012 | on | Floor [address] | management | | | | St Mailcode: [facility] | | (Fabrazyme has been | | | | [facility] [place], [place] | | approved) | | | | [address] | | | | | | [phone] | | | +--------+ + + + [...]
--- OUTSIDE RECORDS SUMMARY | ~2020-02-07 | XMS | Encounter Summary ---
Demographics + + + | Address | [address] | | | [place] [address] | + + + | Home Phone [...] Team Providers + +------+ + | Care Abrasives Sales Representative Name | Role | Phone [...] [place] | | | | | | [facility] | | | | | | [address] | | | | | | [place] | | | | | | [facility] | | | | | | 7th Floor [place], | | | | | | [place] [address] | | | | | | [phone] | | | +--------+------+ + + + [...] [facility] | [address] | [place] [address] | | | SERVICES, CORE | PARK [...] | | | LABORATORY | | | NIGERIEN | | | SERVICES, | | | [...] the MDRD equation recommended by the | [facility] | | National Kidney Disease Education Program. [...] | + + + + + | [facility] | [address] | [place] [address] | | | SERVICES, MARAL | JAMIA MOREL | | | + + + + + documented in this encounter Visit Diagnoses + + | Diagnosis | + + | Fabry disease (HCC) Lipidoses | + + documented in this encounter"
--- OUTSIDE RECORDS SUMMARY | ~2020-02-07 | XMS | Encounter Summary ---
Demographics + + + | Address | [address] | | | [place] [address] | + + + | Home Phone [...] Team Providers + +------+ + | Care Health Care Assistant Name | Role | Phone | [...] | 09/17/ | Telephone | [facility] 7th | Benny Hernandez MD | Pain | | 2018 | | Floor [address] | [address] | | | | | St Mailcode: [facility] | Davin Alfonso | | | | | [facility] [place] | [place], [place] | | | | | [address] | [address] | | | | | [phone] | [phone] | | | | | | | [...]
--- OUTSIDE RECORDS SUMMARY | ~2020-02-07 | XMS | Encounter Summary ---
Demographics + + + | Address | [address] | | | [place] [address] | + + + | Home Phone [...] Providers + +------+ + | Care Rn Cardiac Cath Name | Role | Phone | + [...] | | | | | Shadi | [address] | | | | | disease in | Paxton Davin | [address] | | | | | heterozygous | Jamia Isaacs | Mailcode: | | | | | female | [place], [place] | [address] | | | | | ([facility]) | [address] | for Health | | | | | Procedures | Phone: | and Healing, | | | | | TRANSTHORACI | [phone] | [address] | | | | | C | Fax: | [facility] [place] | | | | | ECHOCARDIOGR | [phone] | [address] | | | | | AM, ADULT | | Phone: | | | | | | | [phone] | +--------+--------+ + + + + Reason [...] | | | | | (-elaine) | Manolo | [address] | | | | | disease | Hospital | [address] | | | | | Procedures | Internal | Doerajithechasher | | | | | [place] EST | Medicin | Children's | | | | | PATIENT | [address] | [address] | | | | | LEVEL V | Manolo Cartwright | Floor | | | | | | [place], | [place], [place] | | | | | | [place] [address] | [address] | | | | | | Phone: | Phone: | | | | | | [phone] | [phone] | | | | | | Fax: | Fax: | | | | | | [phone] | [phone] | +--------+--------+ + + + + Encounter Details +--------+---------+ + + + | Date | Type | Department | Care Team | Description | +--------+---------+ + + + | 07/06/ | Office | Metabolic Genetics | Deidre Nguyen MD | Fabry disease in | | 2019 | Visit | at [facility] | [address] [facility] | heterozygous female | | | | [address] | Jamia Isaacs [place], | ([facility]) (Primary Dx); | | | | [place] | [place] [address] | Port-A-Cath in place | | | | [facility] | [phone] | | | | | 7th Floor [place], | | | | | | [place] [address] | | | | | | [phone] | | | +--------+---------+ + + + [...] AM PDT REFERRING PROVIDER: Estiven Hallman DO [facility] Internal Medicin [address] [facility] [place] [address] PRIMARY CARE PROVIDER: Mikki Barajas MD REASON FOR VISIT: Chief Complaint Patient presents with Follow-up visit HPI and PMH: GLA Genotype: [id number] Date of Diagnosis: 2001 On ERT? Yes, started prior to 2006, then stopped for , and restarted after 2009 Infusion Location: [facility] Port-a-cath? Yes, R upper chest, [...] portacath replaced, now on the right side. 5.22.2017 to be moved CURRENT MEDICATIONS: Current Outpatient [...] reviewed by me at this visit ut [facility] clinic's patient history form. Pertinent positives [...] I will order this for her at [facility] as she has not gotten this done locally. We also briefly discussed the rare disease registry, but family is in a dixon at this visit. Can revisit at next visit. PLAN: - Ordered CXR to check port placement - Ordered EKG and echo - Continue IV Fabrazyme at 1 mg/kg every 2 weeks - Labs today: urine GL3, urine microalb/cr urine protein/cr, plasma lyso-GL3, and Fabrazyme AB FOLLOW UP: follow-up in 1 year or sooner if there are concerns. Deidre Nguyen MD [facility] [place] [address] documented in this encounte r Plan of Treatment + +------+--------+ + + [...] collection time. | LABORATORY | | | [place] B[place]KS | + + + + + + + + | Performing | Address | City/State/Zipcode | Phone Number | | Organization | | | | + + + + + | [facility] | [address] | [place] [address] | | | MARAL BANKS | JAMIA [...] [facility] | [address] | [place] [address] | | | SERVICES, CORE | PARK [...] [facility] | [address] | [place] [address] | | | SERVICES, CORE | PARK [...] | | LAB NAME | By:J Luis Mujica | | REFERENCE | | | | Michell Geovany, | | LAB | | | | [place] [address] | | | | + + + [...] + | [facility] | [address] | [place] [address] | | | JOCELYN, MARAL | JAMIA [...] | REFERENCE | | | | Michell Armneta, | | LAB | | | | [place] [address] | | | | + + + [...] + + + + | [facility] | [address] | [place] [address] | | | SERVICES, CORE | JAMIA [...]
--- OUTSIDE RECORDS SUMMARY | ~2020-02-07 | XMS | Encounter Summary ---
Demographics + + + | Address | [address] | | | [place] [address] | + + + | Home Phone [...] Team Providers + +------+ + | Care Content Production Specialist Name | Role | Phone | [...] 07/23/ | Telephone | [facility] | Polk, Alda | Returning Phone Call | | 2019 | | [address] | W, PhD [address] | | | | | Mailcode: CH15P [address] [place], [place] | | | | | [facility] | [address] | | | | | and [place], | [phone] | | | | | Building | | | | | | Floor [place], [place] | | | | | | [address] | | | | | | [phone] | | | +--------+ + + + [...]
--- OUTSIDE RECORDS SUMMARY | ~2020-02-07 | XMS | Encounter Summary ---
Demographics + + + | Address | [address] | | | [place] [address] | + + + | Home Phone [...] Team Providers + +------+ + | Care Core Blower Operator Name | Role | Phone | + +------+ + | Estiven Hallman DO | PCP | | + +------+ + Encounter Details +--------+ + + + + | Date | Type | Department | Care Team | Description | +--------+ + + + + | 08/15/ | Abstract | [facility] | Estiven Hallman DO | | | 2015 | | Department | [facility] | | | | | | Internal Medicin | | | | | | [address] [facility] | | | | | | [place] [address] | | | | | | [phone] | | | | | | | [...]
--- OUTSIDE RECORDS SUMMARY | ~2020-02-07 | XMS | Encounter Summary ---
Demographics + + + | Address | [address] | | | [place] [address] | + + + | Home Phone [...] Team Providers + +------+ + | Care Slab Lifting Supervisor Name | Role | Phone | [...] [id number] | | | | | | [place], [place] | | | | | | [address] | | | | | | [phone] | | | +--------+ + + + [...] DEPARTMENT OF | [address] | [place] [address] | | | PATHOLOGY | [address] | | | + + + + + | [facility] | [address] | [place] [address] | | | PATHOLOGY | [address] [...] by Uribe | | | | | [facility] | [facility] | | | | | M [...] + + + | [facility] | [address] | [place] [address] | | | LABORATORY | | | [...] | + + + + + | [facility] | [address] | [place] [address] | | | PATHOLOGY | [address] | | | + + + + + | [facility] | [facility] [address] | [place] [address] | | | PATHOLOGY | [address] [...] Performed At | + + + | [id number] Estimated GFR > 60 mL/min/1.73 sq m if non- | [facility] | | [id number] Estimated GFR > 60 mL/min/1.73 sq m [...] | + + + + + | [facility] | [address] | [place] [address] | | | PATHOLOGY | [address] | | | + + + + + | [facility] | [address] | [place] [address] | | | PATHOLOGY | [address] | | | + + + + + documented in this encounter Visit Diagnoses Not on filedocumented in this encounter"
--- OUTSIDE RECORDS SUMMARY | ~2020-02-07 | XMS | Encounter Summary ---
Demographics + + + | Address | [address] | | | [place] [address] | + + + | Home Phone [...] Team Providers + +------+ + | Care Obgyn Hospitalist Physician Name | Role | Phone | [...] | | 2014 | | Department | [facility] | | | | | | Internal Medicin | | | | | | [address] [facility] | | | | | | [place] [address] | | | | | | [phone] | | | | | | | [...]
--- OUTSIDE RECORDS SUMMARY | ~2020-02-07 | XMS | Encounter Summary ---
Demographics + + + | Address | [address] | | | [place] [address] | + + + | Home Phone [...] Providers + +------+ + | Care Medical Front Desk Coordinator Name | Role | Phone | [...] [id number] | | | | | | [place], [place] | | | | | | [address] | | | | | | [phone] | | | +--------+ + + + [...]
--- OUTSIDE RECORDS SUMMARY | ~2020-02-07 | XMS | Encounter Summary ---
Demographics + + + | Address | [address] | | | [place] [address] | + + + | Home Phone [...] Team Providers + +------+ + | Care Pantry Worker Name | Role | Phone | + +------+ + | Lexx Estiven | PCP | | + +------+ + Encounter Details +--------+ + + + + | Date | Type | Department | Care Team | Description | +--------+ + + + + | 02/03/ | Documentati | [facility] | Kathleen Canchola, | | | 2017 | on | Center at [facility] [address] | ACN [address] | | | | | [address] | [address] [facility] [place] | | | | | Mailcode: [place] | [address] | | | | | for Health and | [phone] | | | | | [facility] [address] | | | | | | [facility] [place] | | | | | | [address] | | | | | | | [...]
--- OUTSIDE RECORDS SUMMARY | ~2020-02-07 | XMS | Encounter Summary ---
Demographics + + + | Address | [address] | | | [place] [address] | + + + | Home Phone [...] Team Providers + +------+ + | Care Rehabilitation Director Name | Role | Phone | [...] | | | | | | [address] [facility] | | | | | | [place] | | | | | | [facility] | | | | | | 7th Floor [place], | | | | | | [place] [address] | | | | | | [phone] | | | +--------+------+ + + + [...] | [address] | [place] [address] | | | SERVICES, CORE | PARK [...] | + + + + + | [facility] | [address] | [place] [address] | | | SERVICES, CORE | JAMIA [...] + + | [facility] | [address] [facility] | [place] [address] | | | SERVICES, CORE | PARK [...] | + + + + + | [facility] | [address] | [place] [address] | | | SERVICES, CORE | JAMIA [...] | | | LABORATORY | | | [place] | | | SERVICES, | | | [...] [facility] | [address] | [place] [address] | | | SERVICES, CORE | [address] | | | + + + + + documented in this encounter Visit Diagnoses + + | Diagnosis | + + | Fabry disease (HCC) Lipidoses | + + documented in this encounter"
--- OUTSIDE RECORDS SUMMARY | ~2020-02-07 | XMS | Encounter Summary ---
Demographics + + + | Address | [address] | | | [place] [address] | + + + | Home Phone [...] Providers + +------+ + | Care Health Facilities Surveyor Name | Role | Phone | + +------+ + | Katie Dominique MD | PCP | | + +------+ + Reason for Visit + + + | Reason | Comments | + + + | Patient's Condition | | | Worsened | | + + + Encounter Details +--------+ + + + + | Date | Type | Department | Care Team | Description | +--------+ + + + + | 03/07/ | Telephone | Pediatric | Fawad Muhammad, | Patient's Condition | | 2007 | | Neurology at | MD | Worsened | | | | [facility] | | | | | | [facility] | | | | | | [address] [facility] | | | | | | [place] | | | | | | [facility], | | | | | | 7th floor | | | | | | [place], [place] | | | | | | [address] | | | | | | [phone] | | | +--------+ + + + [...]
--- OUTSIDE RECORDS SUMMARY | ~2020-02-07 | XMS | Encounter Summary ---
Demographics + + + | Address | [address] | | | [place] [address] | + + + | Home Phone [...] Team Providers + +------+ + | Care Day Camp Counselor Name | Role | Phone | [...] | | | | | | | [place], [place] | | | | | | | [address] | | | | | | | Phone: | | | | | | | [phone] | | | | | | | Fax: | | | | | | | [phone] | +--------+--------+ + + + + Encounter Details +--------+---------+ + + + | Date | Type | Department | Care Team | Description | +--------+---------+ + + + | 04/24/ | Office | [facility] 7th | Michell Muhammad, | Fabry disease (HCC) | | 2009 | Visit | Floor [address] | MD | (Primary Dx) | | | | St Mailcode: [facility] | | | | | | [facility] [place], [place] | | | | | | [address] | | | | | | [phone] | | | +--------+---------+ + + + [...] Jarvis's increased symptoms and restart ing medication. penitentiary follow up will probably be ok annually, considering she lives [place]v eral [place] drive away in [facility]. 3. Follow-up for her other problems, [...] Professor, Pediatrics and Molecular and Medical Genetics [facility], [place] [address] Email: [email or web address] documented in this en counter Plan of Treatment Not on filedocumented as of this encounter Visit Diagnoses + + | Diagnosis | + + | Fabry disease (HCC) - Primary Lipidoses | + + documented in this encounter
--- OUTSIDE RECORDS SUMMARY | ~2020-02-07 | XMS | Encounter Summary ---
Demographics + + + | Address | [address] | | | [place] [address] | + + + | Home Phone [...] Team Providers + +------+ + | Care Plastic Mould Maker Name | Role | Phone | [...] | Medical Genetics at | [address] [facility] | Request - Medication | | | | KPV [address] [facility] | [facility] [address] | (Needed for | | | | Dr Wick/[id number] | [place], [place] | Michaelry[employer]) | | | | [facility] | [address] | | | | | [place], [place] | [phone] | | | | | [address] | | | | | | [phone] | | | +--------+ + + + [...]
--- OUTSIDE RECORDS SUMMARY | ~2020-02-07 | XMS | Encounter Summary ---
Demographics + + + | Address | [address] | | | [place] [address] | + + + | Home Phone [...] Team Providers + +------+ + | Care Operator Technician Name | Role | Phone | + +------+ + | Mikki Barajas MD | PCP | | + +------+ + Encounter Details +--------+ + + + + | Date | Type | Department | Care Team | Description | +--------+ + + + + | 10/14/ | Abstract | Digestive Health | Clinic, Surgery | | | 2020 | | [place] [facility] [address] | | | | | | [address] | | | | | | Mailcode: [facility] | | | | | | for Health and | | | | | | Healing, Building [address] | | | | | | [place], [place] | | | | | | [address] | | | | | | [phone] | | | +--------+ + + + [...]
--- OUTSIDE RECORDS SUMMARY | ~2020-02-07 | XMS | Encounter Summary ---
Demographics + + + | Address | [address] | | | [place] [address] | + + + | Home Phone [...] Team Providers + +------+ + | Care Music Orchestrator Name | Role | Phone | + +------+ + | Lexx Estiven | PCP | | + +------+ + Encounter Details +--------+ + + + + | Date | Type | Department | Care Team | Description | +--------+ + + + + | 05/04/ | Documentati | Metabolic Genetics | Genny Hagan | | | 2018 | on | at [facility] | B, QUARTER SUPERVISOR [address] | | | | | [address] [facility] | [facility] | | | | | [place] | [place], [place] | | | | | [facility] | [address] | | | | | [address] [place] [address], | [phone] | | | | | [place] [address] | | | | | | [phone] | | | +--------+ + + + [...]
--- OUTSIDE RECORDS SUMMARY | ~2020-02-07 | XMS | Encounter Summary ---
Demographics + + + | Address | [address] | | | [place] [address] | + + + | Home Phone [...] Team Providers + +------+ + | Care Monologist Name | Role | Phone | + [...] | | | | | | | [place], [place] | | | | | | | [address] | | | | | | | Phone: | | | | | | | [phone] | | | | | | | Fax: | | | | | | | [phone] | +--------+--------+ + + + + Encounter Details +--------+---------+ + + + | Date | Type | Department | Care Team | Description | +--------+---------+ + + + | 03/29/ | Office | [facility] 7th | Butch Rodriguez MD | Fabry disease (HCC) | | 2013 | Visit | Floor [address] | [address] [facility] | (Primary Dx) | | | | St Mailcode: [facility] | [facility] | | | | | [facility] [place], [place] | [place], [place] | | | | | [address] | [address] | | | | | [phone] | [phone] | | | | | | | [...] every 3 weeks and works on her QRcao list. Review of systems: Current Outpatient Prescriptions [...] care provide r. As visit to a sales and management trainee may also be warranted. There may be medications that cou ld alleviate her diarrhea and abdominal discomfort. Plan: 1) CBC and metabolic panel today 2) Refer back to PCP for symptom management 3) Continue ERT at current dose 4) RTC in one year. BUTCH RODRIGUEZ MD [facility] [address]TH FLO[address] [place] [address] Mailcode: [place] [address] documented in this enc ounter [...] | | | LABORATORY | | | [facility] | | | SERVICES, | | | [...] | + + + + + | [facility] [employer] | [address] | [place] [address] | | | SERVICES, CORE | [address]AMIA [...]
--- OUTSIDE RECORDS SUMMARY | ~2020-02-07 | XMS | Encounter Summary ---
Demographics + + + | Address | [address] | | | [place] [address] | + + + | Home Phone [...] Team Providers + +------+ + | Care Jewelry Inspector Name | Role | Phone | [...] | heterozygous female | | | | [facility] | | ([facility]) | | | | [address] [facility] | | | | | | [place] | | | | | | [facility] | | | | | | 7th Floor [place], | | | | | | [place] [address] | | | | | | [phone] | | | +--------+------+ + + + [...] the | | | | PST | ([facility]) | results section. | + +--------+ + + + | CBC, WITH | Routin | 11/04/2017 | Fabry disease in | Results for this | | DIFFERENTIAL | e | 3:50 PM | heterozygous female | procedure are in the | | | | PST | ([facility]) | results section. | + +--------+ + + + | UA, DIPSTICK ONLY | Routin | 11/04/2017 | Fabry disease in | Results for this | | | e | 3:50 PM | heterozygous female | procedure are in the | | | | PST | ([facility]) | results section. 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
--- OUTSIDE RECORDS SUMMARY | ~2020-02-07 | XMS | Encounter Summary ---
Demographics + + + | Address | [address] | | | [place] [address] | + + + | Home Phone [...] Team Providers + +------+ + | Care Imaging Analyst Name | Role | Phone | + +------+ + | Fausto Sinclair | PCP | | + +------+ + Encounter Details +--------+ + + + + | Date | Type | Department | Care Team | Description | +--------+ + + + + | 06/23/ | Documentati | [facility] at [facility] 7th | Shaina Barrett | | | 2012 | on | Floor [address] | | | | | St Mailcode: [facility] | | | | | | [facility] [place], [place] | | | | | | [address] | | | | | | [phone] | | | +--------+ + + + [...]
--- OUTSIDE RECORDS SUMMARY | ~2020-02-07 | XMS | Encounter Summary ---
Demographics + + + | Address | [address] | | | [place] [address] | + + + | Home Phone [...] Team Providers + +------+ + | Care Apartment Leasing Specialist Name | Role | Phone | + +------+ + | Lexx Estiven | PCP | | + +------+ + Encounter Details +--------+ + + + + | Date | Type | Department | Care Team | Description | +--------+ + + + + | 09/03/ | Telephone | [facility] 7th | Shaina Barrett | | | 2016 | | Floor [address] | | | | | St Mailcode: [facility] | | | | | | [facility] [place], [place] | | | | | | [address] | | | | | | [phone] | | | +--------+ + + + [...]
--- OUTSIDE RECORDS SUMMARY | ~2020-02-07 | XMS | Encounter Summary ---
Demographics + + + | Address | [address] | | | [place] [address] | + + + | Home Phone [...] Team Providers + +------+ + | Care Acquisition Analyst Name | Role | Phone | + +------+ + | Christina Rain MD | PCP | | + +------+ + Reason for Visit + + + | Reason | Comments | + + + | Medication | Fabrazyme | | management | | + + + Encounter Details +--------+ + + + + | Date | Type | Department | Care Team | Description | +--------+ + + + + | 01/23/ | Documentati | [facility] 7th | Shaina Barrett | Medication | | 2010 | on | Floor [address] | management | | | | St Mailcode: [facility] | | ([employer]razyme) | | | | [place], [place] | | | | | | [address] | | | | | | [phone] | | | +--------+ + + + [...]
--- OUTSIDE RECORDS SUMMARY | ~2020-02-07 | XMS | Encounter Summary ---
Demographics + + + | Address | [address] | | | [place] [address] | + + + | Home Phone [...] Team Providers + +------+ + | Care Recyclable Materials Sorter Name | Role | Phone | [...] | 08/23/ | Documentati | [facility] 7th | Shaina Barrett | Prior Authorization | | 2016 | on | Floor [address] | [address] | Request - Medication | | | | St Mailcode: [facility] | | (Approved [employer] | | | | [place] | | 27 visits until | | | | [address] | | 08/19/17 ) | | | | [phone] | | | +--------+ + + + [...]
--- OUTSIDE RECORDS SUMMARY | ~2020-02-07 | XMS | Encounter Summary ---
Demographics + + + | Address | [address] | | | [place] [address] | + + + | Home Phone [...] Team Providers + +------+ + | Care Pvc Loader Name | Role | Phone | + +------+ + | Lexx Estiven | PCP | | + +------+ + Reason for Visit + + + | Reason | Comments | + + + | Medication | [employer] increased | | management | | + + + Encounter Details +--------+ + + + + | Date | Type | Department | Care Team | Description | +--------+ + + + + | 06/15/ | Telephone | [facility] 7[facility] | Shaina Barrett | Medication | | 2013 | | Floor [address] | management | | | | St Mailcode: [facility] | | (Fabrazyme | | | | [facility] [place], [place] | | increased) | | | | [address] | | | | | | [phone] | | | +--------+ + + + [...]
--- OUTSIDE RECORDS SUMMARY | ~2020-02-07 | XMS | Encounter Summary ---
Demographics + + + | Address | [address] | | | [place] [address] | + + + | Home Phone [...] Team Providers + +------+ + | Care Garage Door Hanger Name | Role | Phone | + +------+ + | Lexx Estiven DO | PCP | | + +------+ + Reason for Visit + + + | Reason | Comments | + + + | Prior Authorization | approved for [employer] [id number] until 09/14/2018 | | Request - Medication | | + + + Encounter Details +--------+ + + + + | Date | Type | Department | Care Team | Description | +--------+ + + + + | 10/09/ | Documentati | [facility] at [facility] 7th | Marcellus Rodriguez MD | Prior Authorization | | 2018 | on | Floor [address] | [address] [facility] | Request - Medication | | | | St Mailcode: [facility] | [facility] | (approved for | | | | [facility], [place] | [place], [place] | [employer]ryzyme [id number] | | | | [address] | [address] | until 09/14/2018 ) | | | | [phone] | [phone] | | | | | | | [...]
--- OUTSIDE RECORDS SUMMARY | ~2020-02-07 | XMS | Encounter Summary ---
Demographics + + + | Address | [address] | | | [place] [address] | + + + | Home Phone [...] Team Providers + +------+ + | Care Aircraft Instrument Engineer Name | Role | Phone | + +------+ + | Estiven Hallman DO | PCP | | + +------+ + Reason for Visit + + + | Reason | Comments | + + + | Prior Authorization | [employer]ra[employer] and HOME infusions approved | | Request | | + + + Encounter Details +--------+ + + + + | Date | Type | Department | Care Team | Description | +--------+ + + + + | 09/11/ | Telephone | [facility] 7th | Shaina Barrett | Prior Authorization | | 2016 | | Floor [address] | Request (Fabrazyme | | | | St Mailcode: [facility] | | and HOME infusions | | | | [facility] [place], [place] | | approved) | | | | [address] | | | | | | [phone] | | | +--------+ + + + [...]
--- OUTSIDE RECORDS SUMMARY | ~2020-02-07 | XMS | Encounter Summary ---
Demographics + + + | Address | [address] | | | [place] [address] | + + + | Home Phone [...] Team Providers + +------+ + | Care Technical Buyer Name | Role | Phone | + +------+ + | Mikki Barajas MD | PCP | | + +------+ + Encounter Details +--------+ + + + + | Date | Type | Department | Care Team | Description | +--------+ + + + + | 07/06/ | Hospital | Radiology at [facility] | Deidre Nguyen MD | | | 2019 | Encounter | [address] | [address] | | | | | [place] | Naty Isacas [place], | | | | | [facility], | [place] [address] | | | | | [address] [place] [address] | [phone] | | | | | [place], [place] | | | | | | [address] | | | | | | [phone] | | | +--------+ + + + [...] | | | | | | bedtime. Pt reports | | | | | | | taking three tablets | | | | | | | once per day | | | | | + + [...] oral | as needed. | | | 16 | | | capsule | | | | [...] + | LATUDA 120 mg oral | 120 mg once daily. | | 0 | 10/11/19 | | | tablet | | | | 16 | | + + + +---------+ + + | NOVOLOG U-100 | | | 0 | 06/17/20 | | | INSULIN ASPART 100 | | | | 19 | | | unit/mL subcutaneous | | | | | | | solution | | | | | | + + + +---------+ + + | omeprazole 20 mg | Take 20 mg by mouth | | 1 | 10/25/19 | | | oral capsule,delayed | once daily at | | | 17 | | | release(/EC) | bedtime. | | | | | [...]
--- OUTSIDE RECORDS SUMMARY | ~2020-02-07 | XMS | Encounter Summary ---
Demographics + + + | Address | [address] | | | [place] [address] | + + + | Home Phone [...] Providers + +------+ + | Care Unit Director Name | Role | Phone | + +------+ + | Lexx Estiven DO | PCP | | + +------+ + Encounter Details +--------+ + + + + | Date | Type | Department | Care Team | Description | +--------+ + + + + | 01/12/ | Orders Only | Digestive Health | Martina Youssef, | | | 2019 | | [place] [facility] [address] | RN [address] [facility] | | | | | [address] | [address] | | | | | Mailcode: Center | [place], [place] | | | | | [facility] and | [address] | | | | | Healing, [address] | | | | | | [place], [place] | | | | | | [address] | | | | | | [phone] | | | +--------+ + + + [...]
--- OUTSIDE RECORDS SUMMARY | ~2020-02-07 | XMS | Encounter Summary ---
Demographics + + + | Address | [address] | | | [place] [address] | + + + | Home Phone [...] Team Providers + +------+ + | Care Load Out Supervisor Name | Role | Phone | + +------+ + | Fausto Sinclair | PCP | | + +------+ + Encounter Details +--------+ + + + + | Date | Type | Department | Care Team | Description | +--------+ + + + + | 12/31/ | Telephone | [facility] 7th | Deana Jimenez MD | | | 2013 | | Floor [address] | [address] | | | | | St Mailcode: [facility] | Naty Isaacs [place], | | | | | [facility] [place], [place] | [place] [address] | | | | | [address] | [phone] | | | | | [phone] | | | +--------+ + + + [...]
--- OUTSIDE RECORDS SUMMARY | ~2020-02-07 | XMS | Encounter Summary ---
Demographics + + + | Address | [address] | | | [place] [address] | + + + | Home Phone [...] Providers + +------+ + | Care Commercial Lines Account Executive Name | Role | Phone | + +------+ + | Mikki Barajas MD | PCP | | + +------+ + Encounter Details +--------+ + + + + | Date | Type | Department | Care Team | Description | +--------+ + + + + | 10/20/ | Document-Sc | Health Information | Other, Faculty | | | 2018 | anned | Services [address] | [phone] | | | | | [address] | | | | | | Mailcode: OP17A | | | | | | [facility] | | | | | | [place], [place] | | | | | | [address] | | | | | | [phone] | | | +--------+ + + + [...]
--- OUTSIDE RECORDS SUMMARY | ~2020-02-07 | XMS | Encounter Summary ---
Demographics + + + | Address | [address] | | | [place] [address] | + + + | Home Phone [...] Team Providers + +------+ + | Care Infantry Assaultman Name | Role | Phone | + +------+ + | Lexx Estiven | PCP | | + +------+ + Reason for Visit + + + | Reason | Comments | + + + | Prior Authorization | Approved for ERT: [id number] until 08/15/16 | | Request | | + + + Encounter Details +--------+ + + + + | Date | Type | Department | Care Team | Description | +--------+ + + + + | 01/22/ | Telephone | [facility] | Marcellus Rodriguez MD | Prior Authorization | | 2016 | | Floor [address] | [address] | Request (Approved | | | | St Mailcode: [facility] | [address] | for ERT: [id number] | | | | [facility], [place] | [place], [place] | until 08/15/16 ) | | | | [address] | [address] | | | | | [phone] | [phone] | | | | | | | [...]
--- OUTSIDE RECORDS SUMMARY | ~2020-02-07 | XMS | Encounter Summary ---
Demographics + + + | Address | [address] | | | [place] [address] | + + + | Home Phone [...] Team Providers + +------+ + | Care Student Finance Specialist Name | Role | Phone | [...] | | | | | | | [place], [place] | | | | | | | [address] | | | | | | | Phone: | | | | | | | [phone] | | | | | | | Fax: | | | | | | | [phone] | +--------+--------+ + + + + Encounter Details +--------+---------+ + + + | Date | Type | Department | Care Team | Description | +--------+---------+ + + + | 12/23/ | Office | [facility] 7th | Michell Muhammad, | Fabry disease (HCC) | | 2011 | Visit | Floor [address] MD | (Primary Dx) | | | | St Mailcode: [facility] | | | | | | [facility] [place], [place] | | | | | | [address] | | | | | | [phone] | | | +--------+---------+ + + + [...] are glad she will be seeing a professional benefits sales consultant next week, but also urged her to [...] since s he will be restarting medication. 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 CHELSEA EDWARDS, WICHO, PA-C [facility] [place] [address] [facility], [place] [address] MICHELL MUHAMMAD MD Professor, Pediatrics and Molecular and Medical Genetics [facility], [address] [address] Email: [email or web address] documented in this en counter Plan of Treatment + +------+--------+ + + | Name | Type | Priori | Associated Diagnoses | Order Schedule | | | | ty | | | + +------+--------+ + + | CREATININE, URINE | Lab | Routin | Fabry disease | Ordered: 12/24/2011 | | | | e | ([facility]ERLY [facility]) | | + +------+--------+ + + | [...] + + + | [facility] | [address] | [place] [address] | | | PATHOLOGY | [address] [...] 99 | 60 - 99 mg/dL | [facility] | | | PLASMA | | | [...] | | | DEPARTMENT | | | CHINESE | | | OF | | | [...] + + + | [facility] | [address] | [place] [address] | | | PATHOLOGY | [address] [...] + + + | [facility] | [address] | [place] [address] | | | PATHOLOGY | [address] | | | + + + + + CREATININE, URINE (12/24/2011 3:20 PM PDT) + +--------+ + + + | Component | Value | Ref Range | Performed | Pathologist | | | | | At | Signature | + +--------+ + + + | CREATININE | 223.38 | mg/dL | [facility] | | | CONC UR | | [...] + + + + + | [facility] DEPARTMENT OF | [address] | [place] [address] | | | PATHOLOGY | [address] [...] + + + | [facility] | [address] | [place] [address] | | | PATHOLOGY | [address] | | | + + + + + documented in this encounter Visit Diagnoses + + | Diagnosis | + + | Fabry disease (HCC) - Primary Lipidoses | + + documented in this encounter"
--- OUTSIDE RECORDS SUMMARY | ~2020-02-07 | XMS | Encounter Summary ---
Demographics + + + | Address | [address] | | | [place] [address] | + + + | Home Phone [...] Team Providers + +------+ + | Care Pensions Retirement Plan Specialist Name | Role | Phone | [...] | | | | | Shadi | [address] | [address] | | | | | disease in | Paxton Davin | [address] | | | | | heterozygous | Jamia Isaacs | Mailcode: | | | | | female | [place], [place] | [address] | | | | | ([facility]) | [address] | for Health | | | | | Procedures | Phone: | and Healing, | | | | | TRANSTHORACI | [phone] | Building [address] | | | | | C | Fax: | [facility] [place] | | | | | ECHOCARDIOGR | [phone] | [address] | | | | | AM, ADULT | | Phone: | | | | | | | [phone] | +--------+--------+ + + + + Reason [...] | | | disease | Hospital | [address] | | | | | Procedures | Internal | Doerajithechasher | | | | | AL EST | Medicin | Children's | | | | | PATIENT | [address] | [address] | | | | | LEVEL V | Manolo Cartwright | Floor | | | | | | [place], | [place], [place] | | | | | | [place] [address] | [address] | | | | | | Phone: | Phone: | | | | | | [phone] | [phone] | | | | | | Fax: | Fax: | | | | | | [phone] | [phone] | +--------+--------+ + + + + Encounter Details +--------+---------+ + + + | Date | Type | Department | Care Team | Description | +--------+---------+ + + + | 07/06/ | Office | Metabolic Genetics | Deidre Nguyen MD | 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 | heterozygous female | | | | [address] | Jamia Isaacs [place], | ([facility]) (Primary Dx); | | | | [place] | [place] [address] | Port-A-Cath in place | | | | [facility] | [phone] | | | | | 7th Floor [place], | | | | | | [place] [address] | | | | | | [phone] | | | +--------+---------+ + + + [...] AM PDT REFERRING PROVIDER: Estiven Hallman DO [facility] Internal Medicin [address] [place] [address] PRIMARY CARE PROVIDER: Mikki Barajas MD REASON FOR VISIT: Chief Complaint Patient presents with Follow-up visit HPI and PMH: GLA Genotype: [id number] Date of Diagnosis: 2001 On ERT? Yes, started prior to 2006, then stopped for , and restarted after 2009 Infusion Location: [facility] Port-a-cath? Yes, R upper chest, [...] reviewed by me at this visit ut [facility] clinic's patient history form. Pertinent positives [...] I will order this for her at [facility] as she has not gotten this done [...] if there are concerns. Deidre Nguyen MD [facility] Metabolic Clinic [facility] [place] [address] documented in this encounte r Plan of [...] LABORATORY | [address] | [place] [address] | | | MARAL BANKS | JAMIA [...] LABORATORY | [address] | [place] [address] | | | SERVICES, CORE | PARK [...] LABORATORY | [address] | [place] [address] | | | SERVICES, CORE | PARK [...] | LAB | | | | [place] [address] | | | | + + + [...] [facility] | [address] | [place] [address] | | | JOCELYN, MARAL | JAMIA [...] | LAB | | | | [place] [address] | | | | + + + [...] | + + + + + | [facility] LABORATORY | [address] | [place] [address] | | | SERVICES, CORE | JAMIA [...]
--- OUTSIDE RECORDS SUMMARY | ~2020-02-07 | XMS | Encounter Summary ---
Demographics + + + | Address | [address] | | | [place] [address] | + + + | Home Phone [...] Team Providers + +------+ + | Care School Psychological Examiner Name | Role | Phone | + +------+ + | Lexx Estiven | PCP | | + +------+ + Encounter Details +--------+ + + + + | Date | Type | Department | Care Team | Description | +--------+ + + + + | 01/11/ | Telephone | [facility] at [facility] 7th | Shaina Barrett | | | 2013 | | Floor [address] | | | | | St Mailcode: [facility] | | | | | | [facility] [place], [place] | | | | | | [address] | | | | | | [phone] | | | +--------+ + + + [...]
--- OUTSIDE RECORDS SUMMARY | ~2020-02-07 | XMS | Encounter Summary ---
Demographics + + + | Address | [address] | | | [place] [address] | + + + | Home Phone [...] Team Providers + +------+ + | Care Tax Map Technician Name | Role | Phone | [...] (Incorrect | | 2019 | | at [facility] | [address] [facility] | sample, cancelling | | | | [address] | [address] [place], | order) | | | | [facility] | [place] [address] | | | | | [facility] | [phone] | | | | | [address] [place] [address], | | | | | | [place] [address] | | | | | | [phone] | | | +--------+ + + + [...]
--- OUTSIDE RECORDS SUMMARY | ~2020-02-07 | XMS | Encounter Summary ---
Demographics + + + | Address | [address] | | | [place] [address] | + + + | Home Phone [...] Team Providers + +------+ + | Care Lining Layer Name | Role | Phone | [...] | 07/31/ | Telephone | [facility] at [facility] 7th | Marcellus Rodriguez MD | Medication | | 2015 | | Floor [address] [facility] | [address] [facility] | management (home | | | | St Mailcode: [facility] | Davin Nat[address] | infusions?) | | | | [place], [place] | [place], [place] | | | | | [address] | [address] | | | | | [phone] | [phone] | | | | | | | [...]
--- OUTSIDE RECORDS SUMMARY | ~2020-02-07 | XMS | Encounter Summary ---
Demographics + + + | Address | [address] | | | [place] [address] | + + + | Home Phone [...] Team Providers + +------+ + | Care Tie Man Name | Role | Phone | + [...] Medication | | 2018 | | at [facility] | [address] [facility] | management (Missed | | | | [address] | [address] [place], | infusions) | | | | [place] | [place] [address] | | | | | [facility] | [phone] | | | | | 7th Floor [place], | | | | | | [place] [address] | | | | | | [phone] | | | +--------+ + + + [...]
--- OUTSIDE RECORDS SUMMARY | ~2020-02-07 | XMS | Encounter Summary ---
Demographics + + + | Address | [address] | | | [place] [address] | + + + | Home Phone [...] Team Providers + +------+ + | Care Geodesy Teacher Name | Role | Phone | [...] | unspecified obesity | | | | [facility] | [address] [place], | type (HCC) (Primary | | | | [address] | [place] [address] | Dx); Physical | | | | Mailcode: CH3P | [phone] | deconditioning | | | | [facility] | | | | | | and Healing, | | | | | | [address] | | | | | | Floor [place], [place] | | | | | | [address] | | | | | | [phone] | | | +--------+---------+ + + + [...] with the proposed therapy treatment pl an [facility] PHYSICAL THERAPY EVALUATION Past Medical History: Diagnosis [...] treatment: N/A. Concurrent medical treatment: Bariatric Dept. [facility] PHYSICAL THERAPY EVALUATION History of Presenting Problem: [...] Good . Personal factors/Comorbidities; High Justification: see PMH Body structures & functions, Activity limitations, participation restrictions: Moderate - 3 or more Justification: obesity, functional weakness LE - unable to squat to floor, poor wa lking endurance Stability of condition: Moderate - Evolving Decline of condition Clinical decision making: Moderate - Moderate complexity: Moderate level of skill to determ ine plan of care and implement changes accordingly Complexity: Moderate - 98708 The patient requires services that can be [...] Emma Beckwith, PT [facility] AT [facility] 1ST FLOOR Scheduled Appointment time: 1:00 PM [...] per session: 45 Procedure Codes: Therapeutic Exercise 67247 Referral information Authorizing Provider: Kathleen Adan NP, Onset/Referral Date: 7 Primary/Referral Diagnosis: E66.01 Morbid obesity, unspecified obesity type R53.81 Physical deconditioning Start of care: 02/03/2017 Service period from: 02/03/2017 to: 03/04/2017 Next progress report 03/05/2017 g code due by 04/07/2017 G8978 GA MOBILITY CURRENT STATUS Impairment 40-59 % G8979 PQRI MOBILITY GOAL STATUS Impairment 1-19 % Number visits authorized: 1 Number visits used: 1 Outcome Measure 02/03/2017 See flow sheet. documented in this encounter Plan of Treatment + + +--------+ + + | Name | Type | Priori | Associated Diagnoses | Order Schedule | | | | ty | | | + + +--------+ + + | GA MOBILITY CURRENT | Procedures | Routin | [...] | + +--------+ + + + | GA THERAPEUTIC | Routin | 02/06/2017 | Morbid [...]
--- OUTSIDE RECORDS SUMMARY | ~2020-02-07 | XMS | Encounter Summary ---
Demographics + + + | Address | [address] | | | [place] [address] | + + + | Home Phone [...] Team Providers + +------+ + | Care Processing Engineer Name | Role | Phone | [...] as of this encounter Progress Notes Interface, Lime Kiln Operator In - 04/14/2005 8:23 AM PDT [id number] 04/30/2004 06/14/2004 [id number] [facility] DATE: 06/14/2004 CLINIC NAME: Metabolism DISCIPLINE: Metabolics I had a nice talk with Dr. Núñez, Jarvismian Enrique's physician [phone]. 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 He agrees she needs treatment. He would be happy to supervise her infusions. He recd a call from "Jef," President of the local [place] Medicaid HMO, who told him this is $20,000 a month and he has no proof of longwall shearer operator efficacy. I suggested he have Jef call [...] them to me)? thanks, Taurus Muhammad MD Oral And Maxillofacial Surgery Department of Pediatrics Head--Division of Metabolism [address] [place] [address] Ferny--[facility], [place] [address]# FAX# email:[email or web address] A documented i n this encounter Plan of Treatment Not on filedocumented as of this encounter Visit Diagnoses Not on filedocumented in this encounter
--- OUTSIDE RECORDS SUMMARY | ~2020-02-07 | XMS | Encounter Summary ---
Demographics + + + | Address | [address] | | | [place] [address] | + + + | Home Phone [...] Team Providers + +------+ + | Care Diabetes Solutions Specialist Name | Role | Phone | [...] | | 2015 | | Department | [facility] | | | | | | Internal Medicin | | | | | | [address] [facility] | | | | | | [place] [address] | | | | | | [phone] | | | | | | | [...]
--- OUTSIDE RECORDS SUMMARY | ~2020-02-07 | XMS | Encounter Summary ---
Demographics + + + | Address | [address] | | | [place] [address] | + + + | Home Phone [...] Team Providers + +------+ + | Care Budget Record Clerk Name | Role | Phone | [...] | 04/03/ | Documentati | [facility] at [facility] 7th | Marcellus Rodriguez MD | Other (Faxed | | 2016 | on | Floor [address] | [address] | Disability forms. | | | | Mailcode: [facility] | [address] | Confirmation rcv'd. | | | | [facility] [place], [place] | [place], [place] | Sent to [facility] ) | | | | [address] | [address] | | | | | [phone] | [phone] | | | | | | | [...]
--- OUTSIDE RECORDS SUMMARY | ~2020-02-07 | XMS | Encounter Summary ---
Demographics + + + | Address | [address] | | | [place] [address] | + + + | Home Phone [...] Team Providers + +------+ + | Care Asbestos Siding Mechanic Name | Role | Phone | [...] | [address] | Nat[address] Isa[address] [place], | | | | | Mailcode: CH6A | [place] [address] | | | | | [place], [place] | | | | | | [address] | | | | | | [phone] | | | +--------+ + + + [...]
--- OUTSIDE RECORDS SUMMARY | ~2020-02-07 | XMS | Encounter Summary ---
Demographics + + + | Address | [address] | | | [place] [address] | + + + | Home Phone | | + + + | Preferred Language | Unknown | + + + | Marital Status | Single | + + + | Muslim Affiliation | Unknown | + + + | Race | Unknown | + + + | Ethnic Group | Unknown | + + + Author + + + | Author | [facility] | | | and [place] | + + + | Organization | [facility] | | | and [place] | + + + | Address | Unknown | + + + | Phone | Unavailable | + + + Support + + + + + | Name | Relationship | Address | Phone | + + + + + | Jordyn Miguel | ECON | NONE | | | | | [place] [address] | | + + + + + | Jordyn Miguel | ECON | NONE | + | | | | [place] [address] | | + + + + + Care Team Providers + +------+ + | Care Reporting Coordinator Name | Role | Phone | + +------+ + | Estiven Hallman DO | PCP | | + +------+ + Encounter Details +--------+ + + + + | Date | Type | Department | Care Team | Description | +--------+ + + + + | 01/23/ | Hospital | [facility] | Parth Mcelroy, | Encounter for care | | 2018 | Encounter | MED CTR XRAY [address] | [address] | related to vascular | | | | [place] | [place], [place] | access port; Fabry | | | | [place] [address] | [address] | disease (HCC) | | | | [phone] | [phone] | | | | | | | | | | | | Rad, [facility] | | +--------+ + + + + [...] + + + +---------+ + + | estradiol | Take 1 tablet by | | 0 | 10/11/19 | | | (ESTRACE) 1 mg | mouth Daily. | | | 16 | | | tablet | | | | | | + + + +---------+ + + | glipiZIDE | Take 1 tablet by | | 0 | 09/09/20 | | | (GLUCOTROL XL) 10 mg | mouth Daily. | | | 16 | | | ER tablet | | | | | | + + + +---------+ + + | lurasidone | Take 1 tablet by | | 0 | 10/11/19 | | | (LATUDA) 120 mg | mouth Daily. | | | 16 | | | tablet | | | | | | + + + +---------+ + + | omeprazole | Take 1 capsule by | | 0 | 10/25/19 | | | (PRILOSEC) 20 mg | mouth Daily. | | | 17 | | | capsule | | | | | | + + + +---------+ + + | ondansetron | Take 1 tablet by | | 0 | 11/02/19 | | | (ZOFRAN) 4 mg tablet | mouth 3 times daily. | | | 17 | | + + + +---------+ + + | propranolol | Take 1 tablet by | | 0 | 09/11/20 | | | (INDERAL) 40 mg | mouth nightly. | | | 16 | | | tablet | | | | | | + + + +---------+ + + | SITagliptin | Take 1 tablet by | | 0 | 11/02/19 | | | (JANUVIA) 100 mg | mouth Daily. | | | 17 | | | tablet | | | | | | + + + +---------+ + + documented as of this encounter Plan of Treatment Not on filedocumented as of this encounter Procedures + +--------+ + + + | Procedure Name | Priori | Date/Time | Associated Diagnosis | Comments | | | ty | | | | + +--------+ + + + | FL CVA DEVICE TUBE | Routin | 01/23/2018 | Encounter for care | Results for this | | CHECK | e | 11:29 AM | related to vascular | procedure are in the | | | | PDT | access port Fabry | results section. | | | | | disease (HCC) | | + +--------+ + + + documented in this encounter Results FL CVA Device Tube Check (01/23/2018 11:29 AM PDT) + + | Specimen | + + | | + + + + + | Narrative | Performed At | + + + | [place] CVA DEVICE TUBE CHECK 01/23/2018 11:13 AM HISTORY: NO BLOOD | [facility] | | RETURN. COMPARISON: None. PROTOCOL: The patient arrived into | | | the radiology suite with a right internal jugular approach central | | | line in place. Aspiration of the catheter demonstrated no significant | | | return of blood. Forward injection of contrast showed normal | | | extension from the tip of the catheter into the SVC. The catheter was | | | then further flushed with saline. IMPRESSION - Gross patency of | | | central line. Following procedure, aspiration of the catheter | | | demonstrated adequate return of blood flow. Dictated and Signed | | | by: Iron France MD Electronically signed: 01/23/2018 2:11 PM | | + + + + + | Procedure Note | + + | Jose, Rad Results In - 01/23/2018 2:14 PM PDT FL CVA DEVICE TUBE CHECK 01/23/2018 | | 11:13 AMHISTORY: NO BLOOD RETURN.COMPARISON: None.PROTOCOL: The patient arrived into the | | radiology suite with a right internaljugular approach central line in place. Aspiration | | of the catheter demonstratedno significant return of blood. Forward injection of | | contrast showed normalextension from the tip of the catheter into the SVC. The catheter | | was thenfurther flushed with saline.IMPRESSION -Gross patency of central line.Following | | procedure, aspiration of the catheter demonstrated adequate return ofblood flow.Dictated | | and Signed by: Iron France MD Electronically signed: 01/23/2018 2:11 PM | |no significant return of blood. Forward injection of contrast showed normal | |extension from the tip of the catheter into the SVC. The catheter was then | |further flushed with saline. | | | |IMPRESSION - | |Gross patency of central line. | | | |Following procedure, aspiration of the catheter demonstrated adequate return of | |blood flow. | | | |Dictated and Signed by: Iron France MD | | Electronically signed: 01/23/2018 2:11 PM | + + + +---------+ + + | Performing | Address | City/State/Zipcode | Phone Number | | Organization | | | | + +---------+ + + | [facility] | | | | + +---------+ + + documented in this encounter Visit Diagnoses + + | Diagnosis | + + | Encounter for care related to vascular access port Fitting and adjustment of vascular | | catheter | + + | Fabry disease (HCC) Lipidoses | + + documented in this encounter Administered Medications + +--------+ +--------+------+------+ | Medication Order | MAR | Action | Dose | Rate | Site | | | Action | Date | | | | + +--------+ +--------+------+------+ | iohexol (OMNIPAQUE 300) 300 | Given | 01/24/20 | 10 mLs | | | | mg/mL injection 10 mL 10 mL, | | 18 11:45 | | | | | Intravenous, ONCE, 01/23/18 at | | AM PDT | | | | | 1145, For 1 dose, Radiology | | | | | | + +--------+ +--------+------+------+ +---+---+ | | | +---+---+ documented in this encounter"
--- OUTSIDE RECORDS SUMMARY | ~2020-02-07 | XMS | Encounter Summary ---
Demographics + + + | Address | [address] | | | [place] [address] | + + + | Home Phone [...] Team Providers + +------+ + | Care Color Dipper Name | Role | Phone | + +------+ + | Mikki Barajas MD | PCP | | + +------+ + Encounter Details +--------+ + + + + | Date | Type | Department | Care Team | Description | +--------+ + + + + | 10/20/ | Document-Sc | Health Information | Other, Faculty | | | 2018 | anned | Services [address] | [phone] | | | | | [address] | | | | | | Mailcode: OP17A | | | | | | [facility] | | | | | | [place], [place] | | | | | | [address] | | | | | | [phone] | | | +--------+ + + + [...]
--- OUTSIDE RECORDS SUMMARY | ~2020-02-07 | XMS | Encounter Summary ---
Demographics + + + | Address | [address] | | | [place] [address] | + + + | Home Phone [...] + + + | Author | [facility] | | | and [place] | + + + | Organization | [facility] | | | and [place] | + + + | Address | Unknown | + + + | Phone | Unavailable | + + + Support + + + + + | Name | Relationship | Address | Phone | + + + + + | Jordyn Miguel | ECON | NONE | | | | | [place] [address] | | + + + + + | Jordyn Miguel | ECON | NONE | + | | | | [place] [address] | | + + + + + Care Team Providers + +------+ + | Care Elastic Attacher Coverstitch Name | Role | Phone | + +------+ + | Estiven Hallman DO | PCP | | + +------+ + Encounter Details +--------+ + + + + | Date | Type | Department | Care Team | Description | +--------+ + + + + | 01/23/ | Hospital | [facility] | Wing Sage MD | Fabry's disease | | 2018 | Encounter | MED CTR CHEMO | [address] | (HCC) (Primary Dx) | | | | INFUSION [address] | [place], [place] | | | | | [place], | [address] | | | | | [place] [address] | | | | | | [phone] | | | +--------+ + + + [...] + | Diagnosis | + + | Fabry's disease (HCC) - Primary Lipidoses | + + documented in this encounter Administered Medications + +--------+ +-------+------+------+ | Medication Order | MAR | Action | Dose | Rate | Site | | | Action | Date | | | | + +--------+ +-------+------+------+ | heparin 100 units/mL flush | Given | 01/24/20 | 500 | | | | injection 500 Units 500 Units ( | | 18 11:34 | Units | | | | mL), Intracatheter, PRN, Line | | AM PDT | | | | | Care, Starting 01/23/18 at | | | | | | | 1113 | | | | | | + +--------+ +-------+------+------+ +---+---+ | | | +---+---+ documented in this encounter"
--- OUTSIDE RECORDS SUMMARY | ~2020-02-07 | XMS | Encounter Summary ---
Demographics + + + | Address | [address] | | | [place] [address] | + + + | Home Phone | | + + + | Preferred Language | Unknown | + + + | Marital Status | Single | + + + | Adventism Affiliation | Unknown | + + + | Race | Unknown | + + + | Ethnic Group | Unknown | + + + Author + + + | Author | [facility] | | | and [place] | + + + | Organization | [facility] | | [...] | | | | | [place] [address] | | + + + + + | Jordyn Miguel | ECON | NONE | + | | | | [place] [address] | | + + + + + Care Team Providers + +------+ + | Care Data Entry Clerk Name | Role | Phone | + +------+ + | Estiven Hallman DO | PCP | | + +------+ + Encounter Details +--------+ + + + + | Date | Type | Department | Care Team | Description | +--------+ + + + + | 01/23/ | Hospital | [facility] | Wing Sage MD | Fabry's disease | | 2018 | Encounter | MED CTR CHEMO | [address] | (HCC) (Primary Dx) | | | | INFUSION [address] | [place], [place] | | | | | [place], | [address] | | | | | [place] [address] | | | | | | [phone] | | | +--------+ + + + [...]
--- OUTSIDE RECORDS SUMMARY | ~2020-02-07 | XMS | Encounter Summary ---
Demographics + + + | Address | [address] | | | [place] [address] | + + + | Home Phone [...] Team Providers + +------+ + | Care Retail Merchandiser Name | Role | Phone | + [...] | 10/12/ | Telephone | [facility] at [facility] 7th | Shaina Barrett | | | 2009 | | Floor [address] | | | | | St Mailcode: [facility] | | | | | | [facility] [place], [place] | | | | | | [address] | | | | | | [phone] | | | +--------+ + + + [...]
--- OUTSIDE RECORDS SUMMARY | ~2020-02-07 | XMS | Encounter Summary ---
Demographics + + + | Address | [address] | | | [place] [address] | + + + | Home Phone [...] Team Providers + +------+ + | Care Gang Hemstitching Machine Operator Name | Role | Phone [...] | Pain | Diagnoses | Nahid, | Dipak | | | | Management | Morbid | [address] | Mu Fortune, PhD | | | | | obesity with | [address] | | | | | BMI of | [address] | Ave | | | | | 50.0-59.9, | [place], [place] | [place], [place] | | | | | adult (HCC) | [address] | [address] | | | | | Fabry | Phone: | Phone: | | | | | disease | [phone] | [phone] | | | | | (HCC) | Fax: | Fax: | | | | | Benign | [phone] | [phone] | | | | | essential | [...] 03/31/ | Office | [facility] | Alda Hung | Morbid obesity with | | 2019 | Visit | [address] | W, PhD [address] | BMI of 50.0-59.9, | | | | Mailcode: CH15P | Ave [place], [place] | adult ([facility]) (Primary | | | | [facility] | [address] | Dx); Fabry disease | | | | and Healing, | [phone] | (HCC); Bipolar 1 | | | | | | disorder, depressed, | | | | Floor [place], [place] | | mild ([facility]) | | | | [address] | | | | | | [phone] | | | +--------+---------+ + + + [...] a 39 y.o. female who lives in [facility] her mom, children, and half the time [...] grandaughter. 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 She is [...] high school on time and attended [employer]. 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 She should continue to follow the survey questionnaire designer's recommendations. 4. She should continue her current routine for exercise. 5. She is urged to participate in a Bariatric Surgery Support Group. 6. She needs to avoid carbonated beverages. 7. She needs to follow-up with me via [employer] in 4 weeks to update progress on the above r ecommendations. Total time I spent with the patient was approximately 55 minutes jtlb-xt-heir with the deep ent, and approximately 15 minutes of administering testing and 1 hour and 40 minutes of non- vgik-ik-lezn interpreting and synthesizing results. Alda Hung, PhD [facility] 15TH FLOOR [address] [facility] Mail Code: Ch15p [place] [address] documented in thi s encounter Plan of Treatment Not on filedocumented as of this encounter Procedures + +--------+ + + + | Procedure Name | Priori | Date/Time | Associated Diagnosis | Comments | | | ty | | | | + +--------+ + + + | MS | Routin | 04/03/2019 | Morbid obesity [...] + +--------+ + + + | MS PSYCHOLOGICAL | Routin | 04/03/2019 | Morbid [...] + +--------+ + + + | MS PSYCHOLOGICAL | Routin | 04/03/2019 | Morbid obesity | | | TESTING EVAL QHP; | e | 9:17 PM | with BMI of | | | FIRST HOUR | | PDT | 50.0-59.9, adult | | | | | | ([facility]) Fabry disease | | | | | | ([facility]) Bipolar 1 | | | | | | disorder, depressed, | | | | | | mild ([facility]) | | + +--------+ + + + documented in this encounter Visit Diagnoses + + | Diagnosis | + + | Morbid obesity with BMI of 50.0-59.9, adult ([facility]) - Primary | + + | Fabry disease ([facility]) Lipidoses | + + | Bipolar 1 disorder, depressed, mild (HCC) Bipolar I disorder, most recent episode (or | | current) depressed, mild | + + documented in this encounter
--- OUTSIDE RECORDS SUMMARY | ~2020-02-07 | XMS | Encounter Summary ---
Demographics + + + | Address | [address] | | | [place] [address] | + + + | Home Phone [...] Team Providers + +------+ + | Care Knitting Machine Mechanic Name | Role | Phone | + +------+ + | Fausto Sinclair | PCP | | + +------+ + Encounter Details +--------+ + + + + | Date | Type | Department | Care Team | Description | +--------+ + + + + | 06/23/ | Documentati | [facility] 7th | Shaina Barrett | | | 2012 | on IP | Floor [address] | | | | | St Mailcode: [facility] | | | | | | [facility] [place], [place] | | | | | | [address] | | | | | | [phone] | | | +--------+ + + + [...]
--- OUTSIDE RECORDS SUMMARY | ~2020-02-07 | XMS | Encounter Summary ---
Demographics + + + | Address | [address] | | | [place] [address] | + + + | Home Phone [...] +------+ + | Care Printed Circuit Board Assembly Repairer Name | Role | Phone | + +------+ + | Mikki Barajas MD | PCP | | + +------+ + Encounter Details +--------+ + + + + | Date | Type | Department | Care Team | Description | +--------+ + + + + | 07/06/ | Hospital | Radiology at [facility] | Deidre Nguyen MD | | | 2019 | Encounter | [address] | [address] | | | | | Josephine | Naty Isaacs [place], | | | | | [facility], | [place] [address] | | | | | [address] [place] [address] | [phone] | | | | | [place], [place] | | | | | | [address] | | | | | | [phone] | | | +--------+ + + + [...]
--- OUTSIDE RECORDS SUMMARY | ~2020-02-07 | XMS | Encounter Summary ---
Demographics + + + | Address | [address] | | | [place] [address] | + + + | Home Phone [...] Team Providers + +------+ + | Care Gas Plant Dispatcher Name | Role | Phone | [...] | | | | [address] | [place], [place] | | | | | | Manolo Cartwright | [address] | | | | | | [place], | Phone: | | | | | | [place] [address] | [phone] | | | | | | Phone: | Fax: | | | | | | [phone] | [phone] | | | | | | Fax: | | | | | | | [phone] | | +--------+--------+ + + + + Encounter Details +--------+---------+ + + + | Date | Type | Department | Care Team | Description | +--------+---------+ + + + | 10/17/ | Office | [facility] at [facility] 7th | Marcellus Rodriguez MD | 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 We do not know the re sults, [...] one year. Marcellus Rodriguez MD [facility] AT [address] FLO[address] [place] [address] Mailcode: [place] [address] documented in this enc ounter [...]
--- OUTSIDE RECORDS SUMMARY | ~2020-02-07 | XMS | Encounter Summary ---
Demographics + + + | Address | [address] | | | [place] [address] | + + + | Home Phone [...] Providers + +------+ + | Care Health Science Writer Name | Role | Phone | + [...] | | | | | | [place] [address] | [place], [place] | | | | | | Phone: | [address] | | | | | | [phone] | Phone: | | | | | | Fax: | [phone] | | | | | | [phone] | Fax: | | | | | | | [phone] | +--------+--------+ + + + + Encounter Details +--------+---------+ + + + | Date | Type | Department | Care Team | Description | +--------+---------+ + + + | 11/24/ | Office | [facility] at [facility] 7th | Michell Muhammad, | Fabry disease (HCC) | | 2012 | Visit | Floor [address] | MD | (Primary Dx) | | | | St Mailcode: [facility] | | | | | | [facility] [place], [place] | | | | | | [address] | | | | | | [phone] | | | +--------+---------+ + + + [...] labs. We will contact [facility] [facility] [employer] Vamp [employer], since Fabrazyme was denied. This is the only treatment and your symptoms are worsening, and it is clear to us that you need to be ba ck on treatment for your disease. Follow up in Metabolic clinic in 6 months for routine follow up. Discuss with PCP regarding medications for headaches. We will send you paperwork for Fabry study. WICHO TAYLOR PA-C [facility] & [address], [place] [address] documented in this encounter Progress Notes Chelsea [...] will be able to [facility] for her Fabry disease. Three surgeries [...] pr ogressing Fabry disease. We will contact [facility] to discuss why she has been denied [...] since s he will be restarting medication. banbury machine operator, once Fabrazyme restarted, annual follow up may be enough, especially as patient lives [place] hours drive away in [facility]. 4. Talk with PCP regarding daily headaches and use of tylenol to treat. Possible that tylen ol may be related to rebound headaches. CHELSEA EDWARDS MPAS, PA-C [facility] [place] [address] MICHELL MUHAMMAD MD Professor, Pediatrics and Molecular and Medical Genetics [facility], [place] [address] Email: [email or web address] documented in this en counter Plan of Treatment Not on filedocumented as of this encounter Results PROTEIN, URINE [...] [facility] | [address] | [place] [address] | | | SERVICES, CORE | PARK [...] | + + + + + | [facility] | [address] | [place] [address] | | | SERVICES, MARAL | JAMIA [...] [facility] | [address] | [place] [address] | | | SERVICES, CORE | PARK [...] | + + + + + | [facility] | [address] | [place] [address] | | | MARAL BANKS | JAMIA [...] | | | LABORATORY | | | BHUTANESE | | | SERVICES, | | | [...] [facility] | [address] | [place] [address] | | | SERVICES, CORE | [address] | | | + + + + + documented in this encounter Visit Diagnoses + + | Diagnosis | + + | Fabry disease (HCC) - Primary Lipidoses | + + documented in this encounter
--- OUTSIDE RECORDS SUMMARY | ~2020-02-07 | XMS | Encounter Summary ---
Demographics + + + | Address | [address] | | | [place] [address] | + + + | Home Phone [...] Team Providers + +------+ + | Care Booster Pump Oiler Name | Role | Phone | + [...] as of this encounter Progress Notes Interface, Webbing Supervisor In - 04/14/2005 12:50 AM PDT [id number] 09/24/2004 [id number] [facility] Date: 09/24/2004 Clinic Name Metabolics Discipline Metabolism I spoke with her optical advisor, John Mckeon. I told him I definitely do not think she should get ERT during . I told him she is definitely affected. I recommended an echo. I sent him info on Fabry for him to read, including the Anjum Phillip and Sabina MOREL, et al article. Fawad Muhammad MD Flatbed Owner Operator Department of Pediatrics Head--Division of Metabolism [address] [place] [address] Ferny--[facility], [place] [address]# FAX# email:[email or web address] P C: 09/25/2004 marck documented i n this encounter Plan of Treatment Not on filedocumented as of this encounter Visit Diagnoses Not on filedocumented in this encounter"
--- OUTSIDE RECORDS SUMMARY | ~2020-02-07 | XMS | Encounter Summary ---
Demographics + + + | Address | [address] | | | [place] [address] | + + + | Home Phone [...] Team Providers + +------+ + | Care Shoeblack Name | Role | Phone | + +------+ + | Lexx Estiven | PCP | | + +------+ + Encounter Details +--------+ + + + + | Date | Type | Department | Care Team | Description | +--------+ + + + + | 09/17/ | Document-Sc | UNKNOWN DEPARTMENT | Other, Faculty | | | 2017 | anned | [address] [facility] | [phone] | | | | | [address] | | | | | | [place], [place] | | | | | | [address] | | | +--------+ + + + [...]
--- OUTSIDE RECORDS SUMMARY | ~2020-02-07 | XMS | Encounter Summary ---
Demographics + + + | Address | [address] | | | [place] [address] | + + + | Home Phone [...] Providers + +------+ + | Care Medical Reception Specialist Name | Role | Phone | + +------+ + | Lexx Estiven | PCP | | + +------+ + Encounter Details +--------+ + + + + | Date | Type | Department | Care Team | Description | +--------+ + + + + | 02/04/ | Laboratory Monitor | Digestive Health | Kathleen Canchola, | | | 2017 | | Center at [facility] [address] | [facility] [address] | | | | | [address] | Ave [facility] [place] | | | | | Mailcode: [place] | [address] | | | | | for Health and | [phone] | | | | | [facility], [facility] 2 | | | | | | [facility] [place] | | | | | | [address] | | | | | | | [...]
--- OUTSIDE RECORDS SUMMARY | ~2020-02-07 | XMS | Encounter Summary ---
Demographics + + + | Address | [address] | | | [place] [address] | + + + | Home Phone | | + + + | Preferred Language | Unknown | + + + | Marital Status | Single | + + + | Taoism Affiliation | Unknown | + + + [...] Providers + +------+ + | Care Rn Clinical Research Name | Role | Phone | [...] | 08/28/ | Refill | [facility] at [facility] 7th | Shaina Barrett | Refill Request | | 2016 | | Floor [address] | | | | | St Mailcode: [facility] | | | | | | [facility] [place], [place] | | | | | | [address] | | | | | | [phone] | | | +--------+--------+ + + + [...]
--- OUTSIDE RECORDS SUMMARY | ~2020-02-07 | XMS | Encounter Summary ---
Demographics + + + | Address | [address] | | | [place] [address] | + + + | Home Phone [...] Team Providers + +------+ + | Care Market Research Executive Name | Role | Phone | + +------+ + | Lexx Estiven | PCP | | + +------+ + Reason for Visit + + + | Reason | Comments | + + + | Symptom Management | | + + + Encounter Details +--------+ + + + + | Date | Type | Department | Care Team | Description | +--------+ + + + + | 04/25/ | Telephone | [facility] at [facility] 7th | Benny Hernandez MD | Symptom Management | | 2013 | | Floor [address] | [address] | | | | | Mailcode: PSYCHIATRIC | [address] | | | | | [facility], [place] | [place], [place] | | | | | [address] | [address] | | | | | [phone] | [phone] | | | | | | | [...]
--- OUTSIDE RECORDS SUMMARY | ~2020-02-07 | XMS | Encounter Summary ---
Demographics + + + | Address | [address] | | | [place] [address] | + + + | Home Phone [...] Team Providers + +------+ + | Care Basket Sorter Name | Role | Phone | [...] | [facility] | | | with SUPERVISOR HIDE HOUSE | | | | [address] | | | | | | | [address] | | | | | | | Center for | | | | | | | Health and | | | | | | | Healing, | | | | | | | Building 2 | | | | | | | [place], [place] | | | | | | | [address] | | | | | | | Phone: | | | | | | | [phone] | | | | | | | Fax: | | | | | | | [phone] | +--------+ + + + + + Encounter Details +--------+---------+ + + + | Date | Type | Department | Care Team | Description | +--------+---------+ + + + | 03/19/ | Office | Digestive Health | [address] | Morbid obesity, | | 2017 | Visit | Center at [facility] [address] | [address] | unspecified obesity | | | | [address] [facility] | Naty Isaacs [place], | type (HCC) (Primary | | | | for Health and | [place] [address] | Dx); DM type 2 | | | | Healing, Building 2 | | without retinopathy | | | | [facility] [place] | | ([facility]) | | | | [address] | | | | | | [phone] | | | +--------+---------+ + + + [...] of Visit: 10:20 until 11:19 (59 minutes ggut-pc-ddvv with patient). 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 SUBJECTIVE: Pt comes in alone from [facility]. Lives with children, grandchildren, mother. Patient viewed online seminar prior to visit. Recent DM diagnosis, met with MARIA TERESA in [facility] ~2.5months ago and started making changes to [...] Fabrys disease - upset stomach, diarrhea Weight slubber frame changer the past year: lost ~10lbs with diet [...] the stairs more, has been going to [place] in the past month. Food recall: Eating [...] if followin g up with RD in [facility]. Patient verbalizes understanding that surgery is a [...] 2 pre-surgery classes. 4. Call or send [employer] message to dietitian with any questions. Contact information was provided. Follow up with dietitian 1-2 weeks after surgery at first post-op visit. Venus Saldana RD, CNSC, LD [facility] Bariatrics [phone] documented in this enco unter Plan of Treatment Not on filedocumented as of this encounter Procedures + +--------+ + + + | Procedure Name | Priori | Date/Time | Associated Diagnosis | Comments | | | ty | | | | + +--------+ + + + | MS MNT INITIAL | Routin | 03/19/2017 | [...]
--- OUTSIDE RECORDS SUMMARY | ~2020-02-07 | XMS | Encounter Summary ---
Demographics + + + | Address | [address] | | | [place] [address] | + + + | Home Phone [...] Team Providers + +------+ + | Care Apparel Sales Associate Name | Role | Phone [...] | 2016 | Visit | Center at [facility] [address] | | unspecified obesity | | | | [address] | | type (HCC) (Primary | | | | Mailcode: Center | | Dx) | | | | for Health and | | | | | | [facility] 2 | | | | | | [place], [place] | | | | | | [address] | | | | | | [phone] | | | +--------+---------+ + + + [...] of Class: 2:00/3:00 until 3:00/4:00 (60 minutes jkwz-jr-tqon with patient) OBJECTIVE: Height: Ht Readings from [...] or sharing information. Yes Venus Saldana RD, [facility], LD [facility] Bariatrics [phone] documented in this enco unter Plan of Treatment Not on filedocumented as of this encounter Visit Diagnoses + + | Diagnosis | + + | Morbid obesity, unspecified obesity type (HCC) - Primary | + + documented in this encounter
--- OUTSIDE RECORDS SUMMARY | ~2020-02-07 | XMS | Encounter Summary ---
Demographics + + + | Address | [address] | | | [place] [address] | + + + | Home Phone [...] Team Providers + +------+ + | Care Asphalt Still Operator Name | Role | Phone | [...]
--- OUTSIDE RECORDS SUMMARY | ~2020-02-07 | XMS | Encounter Summary ---
Demographics + + + | Address | [address] | | | [place] [address] | + + + | Home Phone [...] Team Providers + +------+ + | Care Teenage Program Director Name | Role | Phone | + +------+ + | Lexx Estiven | PCP | | + +------+ + Encounter Details +--------+ + + + + | Date | Type | Department | Care Team | Description | +--------+ + + + + | 09/16/ | Documentati | [facility] at [facility] 7th | Marcellus Rodriguez MD | | | 2018 | on | Floor [address] | [address] [facility] | | | | | St Mailcode: [facility] | [facility] | | | | | [facility] [place], [place] | [place], [place] | | | | | [address] | [address] | | | | | [phone] | [phone] | | | | | | | [...]
--- OUTSIDE RECORDS SUMMARY | ~2020-02-07 | XMS | Encounter Summary ---
Demographics + + + | Address | [address] | | | [place] [address] | + + + | Home Phone [...] Team Providers + +------+ + | Care Harpoon Engagement Planning Operator Name | Role | Phone | [...] | Pain | Diagnoses | Jesika | Board Runner Psych | | | | Management | Morbid | Kathleen F, ACNP | Chh1 [address] | | | | | obesity, | [address] | | | | | unspecified | [address] | Mailcode: | | | | | obesity type | [place], [place] | [address] | | | | | ([facility]) | [address] | for Health | | | | | Procedures | Phone: | and Healing, | | | | | CONSULT TO | [phone] | Building 1, | | | | | PAIN | Fax: | 15th Floor | | | | | MANAGEMENT | [phone] | [place], [place] | | | | | [place] | | [address] | | | | | PSYCHIATRIC | | Phone: | | | | | DIAGNOSTIC | | [phone] | | | | | EVAL, NO MED | | Fax: | | | | | [facility] [place] | | [phone] | | | | | PSYCH TSTNG | | | | | | | PSYCH/PHYS | | | +--------+--------+ + + + + Encounter Details +--------+---------+ + + + | Date | Type | Department | Care Team | Description | +--------+---------+ + + + | 04/04/ | Office | [facility] at [facility] | Doug Chapa, | Morbid obesity with | | 2017 | Visit | [address] | PhD [address] | BMI of 60.0-69.9, | | | | Mailcode: CH15P | [place], [place] | adult ([facility]) (Primary | | | | Center for Health | [address] | Dx); Major | | | | and Healing, | [phone] | depressive disorder, | | | | 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 Weight: 370 lbs BMI: 66 Proposed Surgery: sleeve gastrectomy. Identifying Information: Jarvis Miguel is a 37 y.o. female who lives with her mother and he r children in [place], [place]. She was referred for psychological evaluation prior to [facility] surgery. Informed consent and limits of confidentiality [...] to improve her consistency with following the coordinator hotels's recommendations, especially eating on schedule. 4. She should continue her current exercise routine and gradually increase the duration of her walks. 5. She is urged to participate in a Bariatric Surgery Support Group. Total time I spent with the patient was approximately 50 minutes with approximately 45 heriberto hima of testing interpreting and synthesizing results. Doug Chapa, PhD [facility] [address]TH [address] [facility] Mail Code: Ch[address] [address] documented in this en counter [...]
--- OUTSIDE RECORDS SUMMARY | ~2020-02-07 | XMS | Encounter Summary ---
Demographics + + + | Address | [address] | | | [place] [address] | + + + | Home Phone [...] Team Providers + +------+ + | Care Crimper Assembler Name | Role | Phone | [...] | | 2014 | | Department | [facility] | | | | | | Internal Medicin | | | | | | [address] [facility] | | | | | | [place] [address] | | | | | | [phone] | | | | | | | [...]
--- OUTSIDE RECORDS SUMMARY | ~2020-02-07 | XMS | Encounter Summary ---
Demographics + + + | Address | [address] | | | [place] [address] | + + + | Home Phone [...] Providers + +------+ + | Care Office Machines Wirer Name | Role | Phone | + +------+ + | Lexx Estiven DO | PCP | | + +------+ + Encounter Details +--------+ + + + + | Date | Type | Department | Care Team | Description | +--------+ + + + + | 07/14/ | MyChart | Digestive Health | | Bariatric online | | 2018 | Encounter | Center at [facility] [address] | | support group | | | | [address] | | | | | | Mailcode: [place] | | | | | | for Health and | | | | | | Healing, Building 2 | | | | | | [place], [place] | | | | | | [address] | | | | | | [phone] | | | +--------+ + + + [...]
--- OUTSIDE RECORDS SUMMARY | ~2020-02-07 | XMS | Encounter Summary ---
Demographics + + + | Address | [address] | | | [place] [address] | + + + | Home Phone [...] Team Providers + +------+ + | Care Silverware Etcher Name | Role | Phone | + [...] [place] | | | | | | [address] [facility] | | | | | | [address] | | | | | | [facility] [place], | | | | | | 7th floor | | | | | | [place], [place] | | | | | | [address] | | | | | | [phone] | | | +--------+ + + + [...]
--- OUTSIDE RECORDS SUMMARY | ~2020-02-07 | XMS | Encounter Summary ---
Demographics + + + | Address | [address] | | | [place] [address] | + + + | Home Phone [...] Providers + +------+ + | Care Oil Lease Buyer Name | Role | Phone | [...] [address] | | | | | | [place], [place] | | | | | | [address] | | | +--------+ + + + [...]
--- OUTSIDE RECORDS SUMMARY | ~2020-02-07 | XMS | Encounter Summary ---
Demographics + + + | Address | [address] | | | [place] [address] | + + + | Home Phone [...] Team Providers + +------+ + | Care Feather Trimmer Name | Role | Phone | + +------+ + | Florian Martinez I | PCP | Unavailable | + +------+ + Encounter Details +--------+ + + + + | Date | Type | Department | Care Team | Description | +--------+ + + + + | 05/28/ | Documentati | [facility] at [facility] 7th | Fawad Muhammad, | | | 2006 | on | Floor [address] | | | | | St Mailcode: [facility] | | | | | | [facility] [place], [place] | | | | | | [address] | | | | | | [phone] | | | +--------+ + + + [...]
--- OUTSIDE RECORDS SUMMARY | ~2020-02-07 | XMS | Encounter Summary ---
Demographics + + + | Address | [address] | | | [place] [address] | + + + | Home Phone [...] Providers + +------+ + | Care Tire Servicer Name | Role | Phone | + [...] | 04/07/ | Telephone | [facility] at [facility] 7th | Marcellus Rodriguez MD | Lab Results | | 2013 | | Floor [address] | [address] [facility] | | | | | St Mailcode: CD[facility] | [address] | | | | | [facility] [place], [place] | [place], [place] | | | | | [address] | [address] | | | | | [phone] | [phone] | | | | | | | [...]
--- OUTSIDE RECORDS SUMMARY | ~2020-02-07 | XMS | Encounter Summary ---
Demographics + + + | Address | [address] | | | [place] [address] | + + + | Home Phone [...] Team Providers + +------+ + | Care Outreach Analyst Name | Role | Phone | [...] as of this encounter Progress Notes Interface, Boat Canvas Maker And Installer In - 07/01/2005 5:04 AM PDT [id number] IVA ZHU Clinic Date: 06/25/2005 Clinic: Pediatric [...] sample should be obtained locally at the [facility] which is near where she lives. The sample would have to be DNA mutation analysis sent to [facility] in [place]. We would like to see Jarvis back in Metabolic Clinic in 6 months or sooner p.yen. Tawny Sanches M.D. Fawad Muhammad M.D. Immunopathologist of Pediatrics and Molecular Medical Genetics e-mail:[email or web address] / [id number] / [id number] / [id number] / [id number] cc: Fab Delarosa DO [address] [address] Electronically signed by Fawad Muhammad 06-30-2005 10:11:17 AM documented i n this encounter Plan of Treatment Not on filedocumented as of this encounter Visit Diagnoses Not on filedocumented in this encounter"
--- OUTSIDE RECORDS SUMMARY | ~2020-02-07 | XMS | Encounter Summary ---
Demographics + + + | Address | [address] | | | [place] [address] | + + + | Home Phone [...] Team Providers + +------+ + | Care Workday Financials Consultant Name | Role | Phone | [...] | Metabolic | Procedures | [place] | [address] | | | | | [place] | INTERNAL | [address] | | | | | OFFICE/OUTPT | MEDICINE | [address] [place], | | | | | | [address] | [place] | | | | | VISIT,EST,LE | [place] | [address] | | | | | [address] TO | [address] | | | | | | SEE [address] | [place], | | | | | | ON | [place] [address] | | | | | | 07/14/2006 | Phone: | | | | | | | [phone] | | | | | | | Fax: | | | | | | | [phone] | | +--------+ + + + + + Encounter Details +--------+ + + + + | Date | Type | Department | Care Team | Description | +--------+ + + + + | 07/14/ | Office | [facility] at [facility] 7th | Fawad Muhammad, | | | 2005 | Visit-ECX | Floor [address] | | | | | St Mailcode: [facility] | | | | | | [facility] [place], [place] | | | | | | [address] | | | | | | [phone] | | | +--------+ + + + [...]
--- OUTSIDE RECORDS SUMMARY | ~2020-02-07 | XMS | Encounter Summary ---
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 Noted a diminished reflex on [...] day. Mom has not yet seen a credit underwriter. Had an echo some time ago (mom [...] echcardiogram and ECG and establish with a credit underwriter. Her ERT is currently at a maximu m dose, but there are additional medications that could be considered if she has cardiac inv olvement. Plan: - Pain control per pain specialist and PCP - Yearly routine labs: UA dip, CBC w/diff - Obtain Echo and ECG, establish care with a credit underwriter She Ascencio MD Pediatrics Resident, PGY-3 Pager #[phone] METABOLIC ATTENDING NOTE I personally interviewed the patient, performed the pertinent parts of the physical examina tion and personally formulated the plan with Dr. Ascencio. I agree with her documen tation and have documented any additions or exceptions. MARCELLUS LYLE MD documented in this enc ounter Plan of Treatment Not on filedocumented as of this encounter Results UA, DIPSTICK ONLY (11/04/2017 3:50 PM PST) [...] | [facility] | | | GRAVITY | [place] performed by | | LABORATORY | | [...] | + + + + + | [facility] | [address] | [place] [address] | | | SERVICES, CORE | JAMIA [...]
--- OUTSIDE RECORDS SUMMARY | ~2020-02-07 | XMS | Encounter Summary ---
Demographics + + + | Address | [address] | | | [place] [address] | + + + | Home Phone [...] Team Providers + +------+ + | Care Dry Cure Worker Name | Role | Phone | + +------+ + | Mikki Barajas MD | PCP | | + +------+ + Encounter Details +--------+ + + + + | Date | Type | Department | Care Team | Description | +--------+ + + + + | 08/27/ | Telephone | Metabolic Genetics | Genny Hagan | | | 2019 | | at [facility] | B, HALL MONITOR [address] [facility] | | | | | [address] [facility] | [facility] | | | | | Josephine | [place], [place] | | | | | [facility] | [address] | | | | | [address] [place] [address], | [phone] | | | | | [place] [address] | | | | | | [phone] | | | +--------+ + + + [...]
--- OUTSIDE RECORDS SUMMARY | ~2020-02-07 | XMS | Encounter Summary ---
Demographics + + + | Address | [address] | | | [place] [address] | + + + | Home Phone [...] Team Providers + +------+ + | Care Flooring Machine Operator Name | Role | Phone [...] as of this encounter Progress Notes Interface, Crew Director In - 04/14/2005 8:10 AM PDTClinic Date: [...] leave. She used to work in the [employer]. She is from [place]. She does not drink alcohol, she does [...] grossly intact. Negative Romberg. Negative gait ataxia. Tuaucs-cz-prmv normal. Assessment/Plan: 24-year-old female with diagnosis of [...] M.D. Visiting Medical Student Fourth Year from [facility] RDS/x10 A [id number] cc: CAROLIN NEVAREZ MD [address] [place] [id number] signed by Interface, Crew Director In at 5 8:10 AM PDTdocumented in this encounter Plan of Treatment Not on filedocumented as of this encounter Visit Diagnoses Not on filedocumented in this encounter"
--- OUTSIDE RECORDS SUMMARY | ~2020-02-07 | XMS | Encounter Summary ---
Demographics + + + | Address | [address] | | | [place] [address] | + + + | Home Phone [...] Team Providers + +------+ + | Care Occupational Therapy Aide Name | Role | Phone | + +------+ + | Estiven Hallman DO | PCP | | + +------+ + Encounter Details +--------+ + + + + | Date | Type | Department | Care Team | Description | +--------+ + + + + | 04/03/ | MyChart | [facility] Comprehensive | Alda Marie | Recommendations | | 2019 | Encounter | Pain Center at | W, PhD [address] | | | | | [facility] | Ave [facility] [place] | | | | | [address] | [address] | | | | | Mailcode: CH15P | [phone] | | | | | [place] for [facility] | | | | | | and Healing, | | | | | | | | | | | | Floor [place], [place] | | | | | | [address] | | | | | | [phone] | | | +--------+ + + + [...]
--- OUTSIDE RECORDS SUMMARY | ~2020-02-07 | XMS | Encounter Summary ---
Demographics + + + | Address | [address] | | | [place] [address] | + + + | Home Phone [...] Providers + +------+ + | Care Community Advocate Name | Role | Phone | + [...] | at [facility] | B, EDGER AUTOMATIC [address] | (New Infusion | | | | [address] | [facility] | Orders) | | | | Doerajithecher | [place], [place] | | | | | [facility] | [address] | | | | | [address] [place] [address], | [phone] | | | | | [place] [address] | | | | | | [phone] | | | +--------+ + + + [...]
--- OUTSIDE RECORDS SUMMARY | ~2020-02-07 | XMS | Encounter Summary ---
Demographics + + + | Address | [address] | | | [place] [address] | + + + | Home Phone [...] Team Providers + +------+ + | Care Magnetic Observer Name | Role | Phone | + +------+ + | Mikki Barajas MD | PCP | | + +------+ + Encounter Details +--------+ + + + + | Date | Type | Department | Care Team | Description | +--------+ + + + + | 08/27/ | Telephone | Metabolic Genetics | Genny Hagan | | | 2019 | | at [facility] | B, DIE MAKER TRIM [address] [facility] | | | | | [address] [facility] | [facility] | | | | | Josephine | [place], [place] | | | | | [facility] | [address] | | | | | [address] [place] [address], | [phone] | | | | | [place] [address] | | | | | | [phone] | | | +--------+ + + + [...]
--- OUTSIDE RECORDS SUMMARY | ~2020-02-07 | XMS | Encounter Summary ---
Demographics + + + | Address | [address] | | | [place] [address] | + + + | Home Phone [...] Providers + +------+ + | Care Clinical Product Specialist Name | Role | Phone | [...] [id number] | | | | | | [facility] | | | | | | [place], [place] | | | | | | [address] | | | | | | [phone] | | | +--------+ + + + [...]
--- OUTSIDE RECORDS SUMMARY | ~2020-02-07 | XMS | Encounter Summary ---
Demographics + + + | Address | [address] | | | [place] [address] | + + + | Home Phone [...] Team Providers + +------+ + | Care Pre Owned Sales Consultant Name | Role | Phone | + +------+ + | Lexx Estiven DO | PCP | | + +------+ + Encounter Details +--------+ + + + + | Date | Type | Department | Care Team | Description | +--------+ + + + + | 01/01/ | Abstract | Digestive Health | Clinic, Surgery | | | 2016 | | [facility] [address] | | | | | | [address] | | | | | | Mailcode: [facility] | | | | | | for Health and | | | | | | Healing, Building 2 | | | | | | [place], [place] | | | | | | [address] | | | | | | [phone] | | | +--------+ + + + [...]
--- OUTSIDE RECORDS SUMMARY | ~2020-02-07 | XMS | Encounter Summary ---
Demographics + + + | Address | [address] | | | [place] [address] | + + + | Home Phone [...] Team Providers + +------+ + | Care Cash Applications Coordinator Name | Role | Phone | [...] | 04/29/ | Telephone | [facility] at [facility] 7th | Benny Hernandez MD | Medication | | 2013 | | Floor [address] | [address] | management | | | | St Mailcode: [facility] | [address] | | | | | [facility] [place], [place] | [place], [place] | | | | | [address] | [address] | | | | | [phone] | [phone] | | | | | | | [...]
--- OUTSIDE RECORDS SUMMARY | ~2020-02-07 | XMS | Encounter Summary ---
Demographics + + + | Address | [address] | | | [place] [address] | + + + | Home Phone [...] Team Providers + +------+ + | Care Shingler Name | Role | Phone | + [...] | +--------+ + + + + | 09/13/ | Telephone | [facility] at [facility] 7th | Benny Hernandez MD | Medication | | 2017 | | Floor [address] | [address] | management | | | | St Mailcode: [facility] | [address] | | | | | [facility] [place], [place] | [place], [place] | | | | | [address] | [address] | | | | | [phone] | [phone] | | | | | | | [...]
--- OUTSIDE RECORDS SUMMARY | ~2020-02-07 | XMS | Encounter Summary ---
Demographics + + + | Address | [address] | | | [place] [address] | + + + | Home Phone [...] Team Providers + +------+ + | Care Residential Sales Consultant Name | Role | Phone | + +------+ + | Lexx Estiven | PCP | | + +------+ + Encounter Details +--------+ + + + + | Date | Type | Department | Care Team | Description | +--------+ + + + + | 10/09/ | Documentati | [facility] at [facility] 7th | Marcellus Rodriguez MD | | | 2018 | on | Floor [address] | [address] [facility] | | | | | St Mailcode: [facility] | [facility] | | | | | [facility] [place], [place] | [place], [place] | | | | | [address] | [address] | | | | | [phone] | [phone] | | | | | | | [...]
--- OUTSIDE RECORDS SUMMARY | ~2020-02-07 | XMS | Encounter Summary ---
Demographics + + + | Address | [address] | | | [place] [address] | + + + | Home Phone [...] Team Providers + +------+ + | Care Salon Assistant Name | Role | Phone | + +------+ + | Lexx Estiven | PCP | | + +------+ + Encounter Details +--------+ + + + + | Date | Type | Department | Care Team | Description | +--------+ + + + + | 01/07/ | Documentati | Digestive Health | Kathleen Canchola, | | | 2017 | on | Center at [facility] [address] | ACN [address] | | | | | [address] | Ave [facility] [place] | | | | | Mailcode: [place] | [address] | | | | | for Health and | [phone] | | | | | [facility], [facility] 2 | | | | | | [place], [place] | | | | | | [address] | | | | | | | [...]
--- OUTSIDE RECORDS SUMMARY | ~2020-02-07 | XMS | Encounter Summary ---
Demographics + + + | Address | [address] | | | [place] [address] | + + + | Home Phone [...] Team Providers + +------+ + | Care Agricultural Produce Washer Name | Role | Phone | [...] | 09/27/ | Telephone | [facility] at [facility] 7th | Shaina Barrett | Prior Authorization | | 2015 | | Floor [address] | [address] Al[address]o | Request ([employer] | | | | Mailcode: [facility] | | infusion); Prior | | | | [facility] [place], [place] | | Authorization | | | | [phone] | | Request (Approved | | | | [phone] | | 09-15-15----01-14-16) | +--------+ + + [...]
--- OUTSIDE RECORDS SUMMARY | ~2020-02-07 | XMS | Encounter Summary ---
Demographics + + + | Address | [address] | | | [place] [address] | + + + | Home Phone [...] Providers + +------+ + | Care Clinical Account Manager Name | Role | Phone | [...] as of this encounter Progress Notes Interface, Drywall Taper Helper In - 04/14/2005 12:36 AM PDT [id number] 10/15/2004 10/15/2004 [id number] IVA ZHU Clinic Date: 10/15/2004 Clinic Name Metabolic Services Discipline Pediatrics We had the pleasure of seeing Jarvis Miguel with her boyfriend in the Metabolic Clinic at [facility] on October 15, 2004. As you [...] disturbances. Jarvis s followed closely by her intermission coordinator, now every two weeks because of her [...] Dr. Mckeon with the contact information for [facility] in [place] where the sample for testing would have to be sent. I suggested to him that he would need to contact [facility] well in advance to pre-arrange this testing. Jarvis's mutation has been found at [facility] previously. We would like to see her back two months after she delivers her baby, probably the first week in June 2005. Thank you for allowing us to participate in Jarvis's care. Estefani Taylor M.D. Fawad Muhammad M.D. Pediatric Juke Box ServicerTraffic Or System Dispatcher Pediatric, Molecular and Medical Genetics Head Division of Metabolism RDS/x29 A [id number] cc: Dr. Mckeon Electronically signed by Fawad Muhammad 10-29-2004 12:56:01 PM documented i n this encounter Plan of Treatment Not on filedocumented as of this encounter Visit Diagnoses Not on filedocumented in this encounter"
--- OUTSIDE RECORDS SUMMARY | ~2020-02-07 | XMS | Encounter Summary ---
Demographics + + + | Address | [address] | | | [place] [address] | + + + | Home Phone [...] Team Providers + +------+ + | Care Cementer Machine Applicator Name | Role | Phone | + +------+ + | Lxex Estiven DO | PCP | | + [...] Referral To | | 2016 | | [place] [address] | | Bariatric Surgery | | | | [address] | | | | | | Mailcode: [place] | | | | | | [facility] and | | | | | | [facility] 2 | | | | | | [place], [place] | | | | | | [address] | | | | | | [phone] | | | +--------+ + + + [...]
--- OUTSIDE RECORDS SUMMARY | ~2020-02-07 | XMS | Encounter Summary ---
Demographics + + + | Address | [address] | | | [place] [address] | + + + | Home Phone [...] Providers + +------+ + | Care Appliance Service Supervisor Name | Role | Phone | [...] | 2018 | Encounter | Center at [facility] [address] | | support group | | | | [address] | | | | | | Mailcode: [place] | | | | | | for Health and | | | | | | Healing, Building [address] | | | | | | [place], [place] | | | | | | [address] | | | | | | [phone] | | | +--------+ + + + [...]
--- OUTSIDE RECORDS SUMMARY | ~2020-02-07 | XMS | Encounter Summary ---
Demographics + + + | Address | [address] | | | [place] [address] | + + + | Home Phone [...] Team Providers + +------+ + | Care Geomorphologist Name | Role | Phone | + +------+ + | Lexx Estiven | PCP | | + +------+ + Encounter Details +--------+ + + + + | Date | Type | Department | Care Team | Description | +--------+ + + + + | 04/24/ | Telephone | Metabolic Genetics | Genny Hagan | | | 2018 | | at [facility] | B, MEDICARE CONTACT SPECIALIST [address] [facility] | | | | | [address] [facility] | [facility] | | | | | Josephine | [place], [place] | | | | | [facility] | [address] | | | | | [address] [place] [address], | [phone] | | | | | [place] [address] | | | | | | [phone] | | | +--------+ + + + [...]
--- OUTSIDE RECORDS SUMMARY | ~2020-02-07 | XMS | Encounter Summary ---
Demographics + + + | Address | [address] | | | [place] [address] | + + + | Home Phone [...] Team Providers + +------+ + | Care Section Leader And Machine Setter Name | Role | Phone | + +------+ + | Estiven Hallman DO | PCP | | + +------+ + Encounter Details +--------+ + + + + | Date | Type | Department | Care Team | Description | +--------+ + + + + | 06/12/ | Plating Stripper | [facility] at [facility] 7th | Marcellus Rodriguez MD | Fabry disease (HCC) | | 2017 | | Floor [address] | [address] | (Primary Dx) | | | | St Mailcode: [facility] | [address] | | | | | [facility] [place], [place] | [place], [place] | | | | | [address] | [address] | | | | | [phone] | [phone] | | | | | | | [...]
--- OUTSIDE RECORDS SUMMARY | ~2020-02-07 | XMS | Encounter Summary ---
Demographics + + + | Address | [address] | | | [place] [address] | + + + | Home Phone [...] Team Providers + +------+ + | Care Freight Breaker Name | Role | Phone | + [...] | 05/25/ | Telephone | [facility] at [facility] 7th | Fawad Muhammad, | Other (See | | 2007 | | Floor [address] | documentation) | | | | St Mailcode: [facility] | | | | | | [facility] [place], [place] | | | | | | [address] | | | | | | [phone] | | | +--------+ + + + [...]
--- OUTSIDE RECORDS SUMMARY | ~2020-02-07 | XMS | Encounter Summary ---
Demographics + + + | Address | [address] | | | [place] [address] | + + + | Home Phone [...] Team Providers + +------+ + | Care Media Marketing Coordinator Name | Role | Phone | [...] as of this encounter Progress Notes Interface, Identification Officer In - 08/02/2006 2:33 AM PST [id number] [id number] ZHU [id number] Clinic Date: 07/14/2006 Clinic: Pediatric Metabolic Primary [...] replacement, we are currently awaiting approval from [facility] which is her insurance provider as well [...] p.o. q. day. 2. Iron supplementation. 3. Abkz-clv-dkquzrq multivitamin 1 supplement. Allergies: PEN.VEE K CAUSES [...] Muhammad. Deangelo Crawford M.D. Fawad Muhammad M.D. Scout Leaser of Pediatrics and Molecular Medical Genetics e-mail:[email or web address] / [id number] / [id number] / [id number] / [id number] Electronically signed by Fawad Muhammad 07-30-2006 06:20:55 PM documented i n this encounter Plan of Treatment Not on filedocumented as of this encounter Visit Diagnoses Not on filedocumented in this encounter
--- OUTSIDE RECORDS SUMMARY | ~2020-02-07 | XMS | Encounter Summary ---
Demographics + + + | Address | [address] | | | [place] [address] | + + + | Home Phone [...] | Author | [facility] | | | and [place] | + + + | Organization | [facility] | | | and [place] | + + + | Address | Unknown | + + + | Phone | Unavailable | + + + Support + + + + + | Name | Relationship | Address | Phone | + + + + + | Jordyn Miguel | ECON | NONE | | | | | [place] [address] | | + + + + + | Jordyn Miguel | ECON | NONE | + | | | | [place] [address] | | + + + + + Care Team Providers + +------+ + | Care Recording Clerk Name | Role | Phone | + +------+ + PCP | Unavailable | + +------+ + Encounter Details +--------+ + + + + | Date | Type | Department | Care Team | Description | +--------+ + + + + | 01/26/ | Hospital | [facility] | Atilio Grover, | | | 2005 | Encounter | [facility] | [address] | | | | | [facility] [address] | [place] | | | | | [address]eller [address], | [place] [address] | | | | | [place] [address] | [phone] | | | | | [phone] | | | +--------+ + + + [...]
--- OUTSIDE RECORDS SUMMARY | ~2020-02-07 | XMS | Encounter Summary ---
Demographics + + + | Address | [address] | | | [place] [address] | + + + | Home Phone [...] Providers + +------+ + | Care Roll Bucker Name | Role | Phone | + [...] | Metabolic | Procedures | [place] | [address] | | | | | [place] | INTERNAL | [address] | | | | | OFFICE/OUTPT | MEDICINE | [address] [place], | | | | | | [address] | [place] | | | | | VISIT,EST,LE | [address] | [address] | | | | | [address] III TO | [address] | | | | | | SEE [address] | [place], | | | | | | ON | [place] [address] | | | | | | 07/14/2006 | Phone: | | | | | | | [phone] | | | | | | | Fax: | | | | | | | [phone] | | +--------+ + + + + + Encounter Details +--------+ + + + + | Date | Type | Department | Care Team | Description | +--------+ + + + + | 07/14/ | Office | [facility] at [facility] 7th | Fawad Muhammad, | | | 2005 | Visit-ECX | Floor [address] | | | | | St Mailcode: [facility] | | | | | | [facility] [place], [place] | | | | | | [address] | | | | | | [phone] | | | +--------+ + + + [...]
--- OUTSIDE RECORDS SUMMARY | ~2020-02-07 | XMS | Encounter Summary ---
Demographics + + + | Address | [address] | | | [place] [address] | + + + | Home Phone [...] Team Providers + +------+ + | Care Roadway Designer Name | Role | Phone | [...] | | 2014 | | Department | [facility] | | | | | | Internal Medicin | | | | | | [address] [facility] | | | | | | [place] [address] | | | | | | [phone] | | | | | | | [...]
--- OUTSIDE RECORDS SUMMARY | ~2020-02-07 | XMS | Encounter Summary ---
Demographics + + + | Address | [address] | | | [place] [address] | + + + | Home Phone [...] Providers + +------+ + | Care Clinical Therapist Name | Role | Phone | + [...] Josephine | | | | | | [facility] | | | | | | [address] [facility] | | | | | | Josephine | | | | | | [facility] | | | | | | 7th Floor [place], | | | | | | [place] [address] | | | | | | [phone] | | | +--------+------+ + + + [...] [facility] | [address] | [place] [address] | | | SERVICES, CORE | PARK [...] | + + + + + | [facility] | [address] | [place] [address] | | | SERVICES, CORE | JAMIA [...] + + | [facility] | [address] [facility] [facility] | [place] [address] | | | SERVICES, CORE | PARK [...] | + + + + + | [facility] | [address] | [place] [address] | | | SERVICES, CORE | JAMIA [...] | LABORATORY | | | [place] | | | SERVICES, | | | [...] [facility] | [address] | [place] [address] | | | SERVICES, CORE | [address] | | | + + + + + documented in this encounter Visit Diagnoses + + | Diagnosis | + + | Fabry disease (HCC) Lipidoses | + + documented in this encounter"
--- OUTSIDE RECORDS SUMMARY | ~2020-02-07 | XMS | Clinical Summary ---
Demographics + + + | Address | [address] | | | [place] [address] | + + + | Home Phone | | + + + | Preferred Language | Unknown | + + + | Marital Status | Single | + + + | Congregational Affiliation | Unknown | + + + | Race | Unknown | + + + | Ethnic Group | Unknown | + + + Author + + + | Author | [email or web address] (Historical as of | | | 05-01-19) | + + + | Organization | [facility] (Historical as of | | | 05-01-19) | + + + | Address | Unknown | + + + | Phone | Unavailable | + + + Support + + + + + | Name | Relationship | Address | Phone | + + + + + | Jordyn Enrique | ECON | NONE | | | | | [place] [address] | | + + + + + Care Team Providers + +------+ + | Care Director Of Search Engine Marketing Name | Role | Phone | + +------+ + | Christina Rain MD | PP | | + +------+ + Allergies Not on File Current Medications Not on file Active Problems + + + | Problem | Noted Date | + + + | Fabry disease (HCC) | | + + + + + | Overview: with acroparesthesias (Deidre Nguyen MD, [facility] Metabolic | | [facility]) | + + + +---+ | Morbid [...] +------+-------+ + | MEDICARE | MEDICA | [id number] | | | [address] | | | RE | | | | [place] [address] | | | IP-OP | | | | | + +--------+ +------+-------+ + | MEDICAID | EASTER | [id number] | | | [address] | | | N | | | | [place] | | | [place] | | | | [address] | | | FLIGHT SURVEYOR | | | | | + +--------+ [...] | | al/Fam | | 1979 | [phone] | [place] | | | andrew | | | [birth year] | [address] | + +--------+ +--------+ + +"
--- OUTSIDE RECORDS SUMMARY | ~2020-02-07 | XMS | Encounter Summary ---
Demographics + + + | Address | [address] | | | [place] [address] | + + + | Home Phone [...] Providers + +------+ + | Care Production Cook Name | Role | Phone | + +------+ + | Lexx Estiven | PCP | | + +------+ + Encounter Details +--------+ + + + + | Date | Type | Department | Care Team | Description | +--------+ + + + + | 06/16/ | Telephone | [facility] at [facility] 7th | Shaina Barrett | | | 2013 | | Floor [address] | | | | | St Mailcode: [facility] | | | | | | [facility] [place], [place] | | | | | | [address] | | | | | | [phone] | | | +--------+ + + + [...]
--- OUTSIDE RECORDS SUMMARY | ~2020-02-07 | XMS | Encounter Summary ---
Demographics + + + | Address | [address] | | | [place] [address] | + + + | Home Phone [...] Team Providers + +------+ + | Care Plant Production Manager Name | Role | Phone | [...] as of this encounter Progress Notes Interface, Foster Care Therapist In - 07/01/2005 5:04 AM PDT [id number] IVA ZHU Clinic Date: 06/25/2005 Clinic: Pediatric [...] sample should be obtained locally at the [facility] which is near where she lives. The sample would have to be DNA mutation analysis sent to [facility] in [place]. We would like to see Jarvis back in Metabolic Clinic in 6 months or sooner p.yen. Tawny Sanches M.D. Fawad Muhammad M.D. Food Dehydrator Operator of Pediatrics and Molecular Medical Genetics e-mail:[email or web address] / [id number] / [id number] / [id number] / [id number] cc: Fab Delarosa DO [address] [address] Electronically signed by Fawad Muhammad 06-30-2005 10:11:17 AM documented i n this encounter Plan of Treatment Not on filedocumented as of this encounter Visit Diagnoses Not on filedocumented in this encounter"
--- OUTSIDE RECORDS SUMMARY | ~2020-02-07 | XMS | Encounter Summary ---
Demographics + + + | Address | [address] | | | [place] [address] | + + + | Home Phone [...] + | Author | [facility] | | | and Horace[place] | + + + | Organization | [facility] | | | and [place]ace[place] | + + + | Address | Unknown | + + + | Phone | Unavailable | + + + Support + + + + + | Name | Relationship | Address | Phone | + + + + + | Jordyn Miguel | ECON | NONE | | | | | [place] [address] | | + + + + + | Jordyn Miguel | ECON | NONE | + | | | | [place] [address] | | + + + + + Care Team Providers + +------+ + | Care Leather Splitter Name | Role | Phone | + +------+ + | Estiven Hallman DO | PCP | | + +------+ + Encounter Details +--------+ + + + + | Date | Type | Department | Care Team | Description | +--------+ + + + + | 01/23/ | Hospital | [facility] | Parth Mcelroy, | Encounter for care | | 2018 | Encounter | MED CTR XRAY [address] | [address] | related to vascular | | | | [place] | [place], [place] | access port; Fabry | | | | [place] [address] | [address] | disease (HCC) | | | | [phone] | [phone] | | | | | | | [...]
--- OUTSIDE RECORDS SUMMARY | ~2020-02-07 | XMS | Encounter Summary ---
Demographics + + + | Address | [address] | | | [place] [address] | + + + | Home Phone [...] Team Providers + +------+ + | Care Motion Picture Operator Name | Role | Phone | [...] | heterozygous female | | | | [facility] | | ([facility]) | | | | [address] | | | | | | Josephine | | | | | | [facility] | | | | | | 7th Floor [place], | | | | | | [place] [address] | | | | | | [phone] | | | +--------+------+ + + + [...] the | | | | PDT | ([facility]) | results section. | + +--------+ + + + | LAB OTHER | Routin | 07/07/2018 | Fabry disease in | Results for this | | | e | 12:39 PM | heterozygous female | procedure are in the | | | | PDT | ([facility]) | results section. | + +--------+ + + + | LAB OTHER | Routin | 07/07/2018 | Fabry disease in | Results for this | | | e | 12:39 PM | heterozygous female | procedure are in the | | | | PDT | ([facility]) | results section. | + [...] [facility] | [address] | [place] [address] | | | MARAL BANKS | PARK [...] + + | [facility] | [address] | [place] [address] | | | SERVICES, CORE | JAMIA [...] Mountain | | | | | | [place], [place] | | | | | | [address] | | | | + + + + + + + + | Specimen | + + | Blood - Blood | | (substance) | + + + + + | Narrative | Performed At | + + + | See scanned | [facility] | | report for Technical Results and [...] + + | [facility] | [address] | [place] [address] | | | JOCELYN, MARAL | JAMIA [...] | LAB | | | | [place] [address] | | | | + + + [...] + + | [facility] | [address] | [place] [address] | | | MARAL BANKS | [address] | | | + + + + + | [facility] | see below | | | + + + + + documented in this encounter Visit Diagnoses + + | Diagnosis | + + | 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
--- OUTSIDE RECORDS SUMMARY | ~2020-02-07 | XMS | Encounter Summary ---
Demographics + + + | Address | [address] | | | [place] [address] | + + + | Home Phone [...] Providers + +------+ + | Care Automotive Teacher Name | Role | Phone | [...] Rd | | | | | | [place], [place] | | | | | | [address] | | | +--------+ + + + [...] | + + + + + | [facility] DEPARTMENT OF | [address] | [place] [address] | | | PATHOLOGY | [address] [...] | Anticardiolipin GMA Interpretive Data for | [facility] | | Anticardiolipin Antibodies IgG, IgM Negative: [...] | + + + + + | [facility] DEPARTMENT OF | [address] [facility] | [place] [address] | | | PATHOLOGY | [address] [...] | [facility] | | obtained with the Prime Focus QUANTA Lite B2GP1 IgGMA CELIA. B2GP1 | DEPARTMENT OF | | IgGMA values obtained with different mobile sales technician's assay methods | PATHOLOGY | | may [...] | + + + + + | [facility] | [address] | [place] [address] | | | PATHOLOGY | [address] | | | + + + + + documented in this encounter Visit Diagnoses Not on filedocumented in this encounter"
--- OUTSIDE RECORDS SUMMARY | ~2020-02-07 | XMS | Encounter Summary ---
Demographics + + + | Address | [address] | | | [place] [address] | + + + | Home Phone [...] + +------+ + | Care Solar Installation Technician Name | Role | Phone | [...] | 09/13/ | Telephone | [facility] at [facility] 7th | Benny Hernandez MD | Medication | | 2017 | | Floor [address] | [address] | management | | | | St Mailcode: [facility] | [address] | | | | | [facility] [place], [place] | [place], [place] | | | | | [address] | [address] | | | | | [phone] | [phone] | | | | | | | [...]
--- OUTSIDE RECORDS SUMMARY | ~2020-02-07 | XMS | Encounter Summary ---
Demographics + + + | Address | [address] | | | [place] [address] | + + + | Home Phone [...] Team Providers + +------+ + | Care Merchandise Marker Name | Role | Phone | + +------+ + | Lexx Estiven | PCP | | + +------+ + Encounter Details +--------+ + + + + | Date | Type | Department | Care Team | Description | +--------+ + + + + | 04/24/ | Telephone | Metabolic Genetics | Genny Hagan | | | 2018 | | at [facility] | B, A AND P TECHNICIAN [address] [facility] | | | | | [address] [facility] | [facility] | | | | | Josephine | [place], [place] | | | | | [facility] | [address] | | | | | [address] [place] [address], | [phone] | | | | | [place] [address] | | | | | | [phone] | | | +--------+ + + + [...]
--- OUTSIDE RECORDS SUMMARY | ~2020-02-07 | XMS | Encounter Summary ---
Demographics + + + | Address | [address] | | | [place] [address] | + + + | Home Phone [...] Team Providers + +------+ + | Care Affirmative Action Specialist Name | Role | Phone | [...] | | | | | | [place] [address] | [place], [place] | | | | | | Phone: | [address] | | | | | | [phone] | Phone: | | | | | | Fax: | [phone] | | | | | | [phone] | Fax: | | | | | | | [phone] | +--------+--------+ + + + + Encounter Details +--------+---------+ + + + | Date | Type | Department | Care Team | Description | +--------+---------+ + + + | 11/24/ | Office | [facility] at [facility] 7th | Michell Muhammad, | Fabry disease (HCC) | | 2012 | Visit | Floor [address] | MD | (Primary Dx) | | | | St Mailcode: [facility] | | | | | | [facility] [place], [place] | | | | | | [address] | | | | | | [phone] | | | +--------+---------+ + + + [...] labs. We will contact [employer] Medicaid Spot Checker, since Fabrazyme was denied. This is the [...] Fabry study. WICHO TAYLOR PA-C [facility] & [address], [place] [address] documented in this encounter Progress Notes Chelsea [...] will be [facility] for her Fabry disease. Three surgeries [...] pr ogressing Fabry disease. We will contact [facility] to discuss why she has been [...] since s he will be restarting medication. salvage determiner, once Fabrazyme restarted, annual follow up may be enough, especially as patient lives several hours drive away in [facility]. 4. Talk with PCP regarding daily headaches and use of tylenol to treat. Possible that tylen ol may be related to rebound headaches. CHELSEA EDWARDS MPAS, PA-C [facility] & [place] [address] MICHELL MUHAMMAD MD Professor, Pediatrics and Molecular and Medical Genetics [facility], [place] [address] Email: [email or web address] documented in this en counter Plan of [...] [facility] | [address] | [place] [address] | | | SERVICES, CORE | PARK [...] + + + + + | [facility] | [address] | [place] [address] | | | SERVICES, MARAL | JAMIA [...] [facility] | [address] | [place] [address] | | | SERVICES, CORE | PARK [...] + + + + + | [facility] | [address] | [place] [address] | | | MARAL BANKS | [address]AM[address] [...] | | | LABORATORY | | | MICRONESIAN | | | SERVICES, | | | [...] [facility] | [address] | [place] [address] | | | SERVICES, CORE | [address] | | | + + + + + documented in this encounter Visit Diagnoses + + | Diagnosis | + + | Fabry disease (HCC) - Primary Lipidoses | + + documented in this encounter
--- OUTSIDE RECORDS SUMMARY | ~2020-02-07 | XMS | Encounter Summary ---
Demographics + + + | Address | [address] | | | [place] [address] | + + + | Home Phone [...] Team Providers + +------+ + | Care Bottled Beverage Inspector Name | Role | Phone | [...] as of this encounter Progress Notes Interface, National Expansion Recruiter In - 06/27/2005 5:05 AM PDT [id number] 06/25/2005 06/25/2005 [id number] IVA ZHU [address] [id number] or June 25, 2005 Dr. Andres [place] RE: JARVIS ENRIQUE MR #: [id number] Dear Dr. Andres: We saw your patient, Jarvis Enrique, in the Metabolic Clinic at [facility] on July 26, 2005. Jarvis has [...] wish to discuss her care. ; fax: [phone]; email: [email or web address] Sincerely, Fawad Muhammad M.D. Rn Admissions of Pediatrics and Molecular Medical Genetics e-mail:[email or web address] / [id number] / [id number] / [phone] / documented i n this encounter Plan of Treatment Not on filedocumented as of this encounter Visit Diagnoses Not on filedocumented in this encounter"
--- OUTSIDE RECORDS SUMMARY | ~2020-02-07 | XMS | Encounter Summary ---
Demographics + + + | Address | [address] | | | [place] [address] | + + + | Home Phone [...] Providers + +------+ + | Care Credit Collections Manager Name | Role | Phone | [...] as of this encounter Progress Notes Interface, Weight Loss Centre Manager In - 04/14/2005 12:50 AM PDT [id number] 09/24/2004 [id number] IVA ZHU Clinic Date: 09/24/2004 Clinic Name Metabolics Discipline Metabolism I spoke with her lemon picker, John Mckeon. I told him I definitely do not think she should get ERT during . I told him she is definitely affected. I recommended an echo. I sent him info on Fabry for him to read, including the Anjum Phillip and Sabina MOREL, et al article. Fawad Muhammad MD Therapeutic Recreation Director Department of Pediatrics Head--Division of Metabolism [address] [place] [address] Ferny--[facility], [place] [address]# FAX# email:[email or web address] KOKO/[email or web address] P C: 09/25/2004 marck documented i n this encounter Plan of Treatment Not on filedocumented as of this encounter Visit Diagnoses Not on filedocumented in this encounter"
--- OUTSIDE RECORDS SUMMARY | ~2020-02-07 | XMS | Encounter Summary ---
Demographics + + + | Address | [address] | | | [place] [address] | + + + | Home Phone [...] Team Providers + +------+ + | Care Learning And Development Consultant Name | Role | Phone | [...] | | | | | | | [facility] [place] | | | | | | | [address] | | | | | | | Phone: | | | | | | | [phone] | | | | | | | Fax: | | | | | | | [phone] | +--------+--------+ + + + + Encounter Details +--------+---------+ + + + | Date | Type | Department | Care Team | Description | +--------+---------+ + + + | 01/22/ | Office | [facility] at [facility] 7th | Michell Muhammad, | Fabry disease (HCC) | | 2010 | Visit | Floor [address] Montiel MD | (Primary Dx) | | | | St Mailcode: [facility] | | | | | | [facility] [place], [place] | | | | | | [address] | | | | | | [phone] | | | +--------+---------+ + + + [...] to help with insurance approval for Fabrazyme. [phone]. Will need PCPs office to help with that also. MICHELL MUHAMMAD MD Professor, Pediatrics and Molecular and Medical Genetics [facility], [place] [address] Email: [email or web address] documented in this encounter Progress Notes [...] echocardiogram, locally. 5. Will obtain records from can labeler exam done 04/2010. 3. Follow up in metabolic clinic in six months given Jarvis's increased symptoms and restart ing medication. custodial, once Fabrazyme restarted, follow up may be ok annually, especiall y as patient lives several [place] drive away in [facility]. WICHO YUSUF, PAHenrietta [facility] & [facility] [address] [facility], [facility] [phone] Email: [email or web address] MICHELL MUHAMMAD MD Professor, Pediatrics and Molecular and Medical Genetics [facility], [facility] [address] [place] [address] Email: [email or web address] aradise, Xenia - 01/13 12:59 PM [...] At | + + + | [facility] | [facility] | | [address] [address] [place], [place] | REGIONAL | | [address] | LABORATORY | + + + + + + + + | Performing | Address | City/State/Zipcode | Phone Number | | Organization | | | | + + + + + | [facility] | [address] | [place] [address] | | | LABORATORY | | | [...] | + + + + + | [facility] | [address] | [place] [address] | | | PATHOLOGY | [address] [...] DEPARTMENT OF | [address] | [place] [address] | | | PATHOLOGY | [address] [...] | + + + + + | [facility] | [address] | [place] [address] | | | PATHOLOGY | [address] | | | + + + + + documented in this encounter Visit Diagnoses + + | Diagnosis | + + | Fabry disease (HCC) - Primary Lipidoses | + + documented in this encounter"
--- OUTSIDE RECORDS SUMMARY | ~2020-02-07 | XMS | Encounter Summary ---
Demographics + + + | Address | [address] | | | [place] [address] | + + + | Home Phone [...] Team Providers + +------+ + | Care Artist'S Manager Name | Role | Phone | + +------+ + | Fausto Sinclair | PCP | | + +------+ + Encounter Details +--------+ + + + + | Date | Type | Department | Care Team | Description | +--------+ + + + + | 03/25/ | Documentati | [facility] at [facility] 7th | Deana Jimenez MD | | | 2012 | on | Floor [address] | [address] | | | | | St Mailcode: [facility] | Naty Isaacs [place], | | | | | [facility] [place], [place] | [place] [address] | | | | | [address] | [phone] | | | | | [phone] | | | +--------+ + + + [...]
--- OUTSIDE RECORDS SUMMARY | ~2020-02-07 | XMS | Encounter Summary ---
Demographics + + + | Address | [address] | | | [place] [address] | + + + | Home Phone [...] Providers + +------+ + | Care Machine Heel Seat Laster Name | Role | Phone | + [...]
--- OUTSIDE RECORDS SUMMARY | ~2020-02-07 | XMS | Encounter Summary ---
Demographics + + + | Address | [address] | | | [place] [address] | + + + | Home Phone [...] Team Providers + +------+ + | Care Tank Riveter Name | Role | Phone | + [...] [id number] | | | | | | [facility] | | | | | | [place], [place] | | | | | | [address] | | | | | | [phone] | | | +--------+ + + + [...]
--- OUTSIDE RECORDS SUMMARY | ~2020-02-07 | XMS | Encounter Summary ---
Demographics + + + | Address | [address] | | | [place] [address] | + + + | Home Phone [...] Team Providers + +------+ + | Care Pathology Secretary/Transcriptionist Name | Role | Phone | + [...] | | | | | [address] | Naty Isaacs [employer], | | | | | [place] | [place] [address] | | | | | [facility] | [phone] | | | | | [address] [place] [address], | | | | | | [place] [address] | | | | | | [phone] | | | +--------+ + + + [...]
--- OUTSIDE RECORDS SUMMARY | ~2020-02-07 | XMS | Encounter Summary ---
Demographics + + + | Address | [address] | | | [place] [address] | + + + | Home Phone [...] Team Providers + +------+ + | Care Slot Router Name | Role | Phone | + [...] | 01/23/ | Documentati | [facility] at [facility] 7th | Shaina Barrett | Medication | | 2010 | on | Floor [address] | management | | | | St Mailcode: [facility] | | (Fabrazyme) | | | | [place], [place] | | | | | | [address] | | | | | | [phone] | | | +--------+ + + + [...]
--- OUTSIDE RECORDS SUMMARY | ~2020-02-07 | XMS | Encounter Summary ---
Demographics + + + | Address | [address] | | | [place] [address] | + + + | Home Phone [...] Team Providers + +------+ + | Care Cnc Mechanic Name | Role | Phone | + +------+ + | Lexx Estiven | PCP | | + +------+ + Reason for Visit + + + | Reason | Comments | + + + | IV - Intravenous | Fabrazyme Back at [facility] | | infusion | | + + + | Prior Authorization | Approved fro Fabrazyme through 09/14/18 | | Request | | + + + Encounter Details +--------+ + + + + | Date | Type | Department | Care Team | Description | +--------+ + + + + | 11/06/ | Telephone | [facility] at [facility] 7th | Shaina Barrett | IV - Intravenous | | 2018 | | Floor [address] | [address] | infusion (Fabrazyme | | | | St Mailcode: [facility] | | Back at | | | | [place], [place] | | Ernesto); Prior | | | | [address] | | Authorization | | | | [phone] | | Request (Approved | | | [...]
--- OUTSIDE RECORDS SUMMARY | ~2020-02-07 | XMS | Encounter Summary ---
Demographics + + + | Address | [address] | | | [place] [address] | + + + | Home Phone [...] Team Providers + +------+ + | Care Food And Beverage Lead Name | Role | Phone | + +------+ + | Lexx Estiven | PCP | | + +------+ + Encounter Details +--------+ + + + + | Date | Type | Department | Care Team | Description | +--------+ + + + + | 10/09/ | Documentati | [facility] at [facility] 7th | Marcellus Rodriguez MD | | | 2018 | on | Floor [address] | [address] [facility] | | | | | St Mailcode: [facility] | [facility] | | | | | [facility] [place], [place] | [place], [place] | | | | | [address] | [address] | | | | | [phone] | [phone] | | | | | | | [...]
--- OUTSIDE RECORDS SUMMARY | ~2020-02-07 | XMS | Encounter Summary ---
Demographics + + + | Address | [address] | | | [place] [address] | + + + | Home Phone [...] Providers + +------+ + | Care Drill Rig Operator Name | Role | Phone | [...] | 01/11/ | Telephone | [facility] at [facility] 7th | Shaina Barrett | Prior Authorization | | 2013 | | Floor [address] | Request (Approved | | | | St Mailcode: [facility] | | for Fabrazyme until | | | | [place], [place] | | 06/14/2014) | | | | [address] | | | | | | [phone] | | | +--------+ + + + [...]
--- OUTSIDE RECORDS SUMMARY | ~2020-02-07 | XMS | Encounter Summary ---
Demographics + + + | Address | [address] | | | [place] [address] | + + + | Home Phone [...] Providers + +------+ + | Care Electromechanical Equipment Tester Name | Role | Phone | [...] | | 2015 | | Department | [facility] | | | | | | Internal Medicin | | | | | | [address] [facility] | | | | | | [place] [address] | | | | | | [phone] | | | | | | | [...]
--- OUTSIDE RECORDS SUMMARY | ~2020-02-07 | XMS | Encounter Summary ---
Demographics + + + | Address | [address] | | | [place] [address] | + + + | Home Phone [...] Team Providers + +------+ + | Care Circle Saw Operator Name | Role | Phone | + +------+ + | Lexx Estiven | PCP | | + +------+ + Encounter Details +--------+ + + + + | Date | Type | Department | Care Team | Description | +--------+ + + + + | 02/06/ | Documentati | [facility] at [facility] 7th | Shaina Barrett | | | 2016 | on | Floor [address] | | | | | St Mailcode: [facility] | | | | | | [facility] [place], [place] | | | | | | [address] | | | | | | [phone] | | | +--------+ + + + [...]
--- OUTSIDE RECORDS SUMMARY | ~2020-02-07 | XMS | Encounter Summary ---
Demographics + + + | Address | [address] | | | [place] [address] | + + + | Home Phone [...] Team Providers + +------+ + | Care Lineman Name | Role | Phone | + [...] | 04/25/ | Telephone | [facility]th | Benny Hernandez MD | Symptom Management | | 2013 | | Floor [address] | [address] | | | | | Mailcode: [facility] | Davin Alfonso | | | | | [facility], [place] | [place], [place] | | | | | [address] | [address] | | | | | [phone] | [phone] | | | | | | | [...]
--- OUTSIDE RECORDS SUMMARY | ~2020-02-07 | XMS | Encounter Summary ---
Demographics + + + | Address | [address] | | | [place] [address] | + + + | Home Phone [...] Team Providers + +------+ + | Care Signs And Displays Sales Representative Name | Role | Phone [...] | 10/09/ | Telephone | [facility] 7th | Shaina Barrett | Prior Authorization | | 2017 | | Floor [address] | [place], [place] | Request ([place] for | | | | St Mailcode: [facility] | | [employer] for | | | | [facility] [place], [place] | | [employer] infusions | | | | [address] | | received) | | | | [phone] | | | +--------+ + + + [...]
--- OUTSIDE RECORDS SUMMARY | ~2020-02-07 | XMS | Encounter Summary ---
Demographics + + + | Address | [address] | | | [place] [address] | + + + | Home Phone [...] Team Providers + +------+ + | Care Fermentologist Name | Role | Phone | + +------+ + | iMkki Barajas MD | PCP | | + [...] [id number] | | | | | | [place], [place] | | | | | | [address] | | | | | | [phone] | | | +--------+ + + + [...]
--- OUTSIDE RECORDS SUMMARY | ~2020-02-07 | XMS | Encounter Summary ---
Demographics + + + | Address | [address] | | | [place] [address] | + + + | Home Phone [...] Providers + +------+ + | Care Cloth Stock Sorter Name | Role | Phone | [...] | unspecified obesity | | | | [facility] | [address] [place], | type (HCC) (Primary | | | | [address] | [place] [address] | Dx); Physical | | | | Mailcode: CH3P | [phone] | deconditioning | | | | [facility] | | | | | | and Healing, | | | | | | [address] | | | | | | Floor [place], [place] | | | | | | [address] | | | | | | [phone] | | | +--------+---------+ + + + [...] with the proposed therapy treatment pl an [facility] PHYSICAL THERAPY EVALUATION Past Medical History: Diagnosis [...] treatment: N/A. Concurrent medical treatment: Bariatric Dept. [facility] PHYSICAL THERAPY EVALUATION History of Presenting Problem: [...] and implement changes accordingly Complexity: Moderate - 53[address] The patient requires services that can be [...] status. Emma Beckwith, PT [facility] AT [facility] 1ST FLOOR Scheduled Appointment time: 1:00 [...] per session: 45 Procedure Codes: Therapeutic Exercise 22558 Referral information Authorizing Provider: Kathleen Adan NP, Onset/Referral Date: 7 Primary/Referral Diagnosis: E66.01 Morbid obesity, unspecified obesity type R53.81 Physical deconditioning Start of care: 02/03/2017 Service period from: 02/03/2017 to: 03/04/2017 Next progress report 03/05/2017 g code due by 04/07/2017 G8978 [place] MOBILITY CURRENT STATUS Impairment 40-59 % G8979 [...] | + + +--------+ + + | MN MOBILITY CURRENT | Procedures | Routin | [...] | + +--------+ + + + | MN THERAPEUTIC | Routin | 02/06/2017 | Morbid [...]
--- OUTSIDE RECORDS SUMMARY | ~2020-02-07 | XMS | Encounter Summary ---
Demographics + + + | Address | [address] | | | [place] [address] | + + + | Home Phone [...] Providers + +------+ + | Care Card Tape Converter Operator Name | Role | Phone | [...] | | 2018 | on | at [facility] | B, MANAGER ETL [address] [facility] | management (updated | | | | [address] | [facility] | orders sent to PCP | | | | Josephine | [place], [place] | to [facility]) | | | | [facility] | [address] | | | | | 7th Floor [place], | [phone] | | | | | [place] [address] | | | | | | [phone] | | | +--------+ + + + [...]
--- OUTSIDE RECORDS SUMMARY | ~2020-02-07 | XMS | Encounter Summary ---
Demographics + + + | Address | [address] | | | [place] [address] | + + + | Home Phone [...] Team Providers + +------+ + | Care Refrigeration Mechanic Name | Role | Phone | [...] | | 50.0-59.9, | [place], [place] | [place], [place] | | | | | adult (HCC) | [address] | [address] | | | | | Fabry | Phone: | Phone: | | | | | disease | [phone] | [phone] | | | | | (HCC) | Fax: | Fax: | | | | | Benign | [phone] | [phone] | | | | | essential | [...] 03/31/ | Office | Pain Center at [facility] | Alda Hung | Morbid obesity with | | 2019 | Visit | [address] | W, PhD [address] | BMI of 50.0-59.9, | | | | Mailcode: CH15P | Ave [place], [place] | adult ([facility]) (Primary | | | | [facility] | [address] | Dx); Fabry disease | | | | and Healing, | [phone] | (HCC); Bipolar 1 | | | | | | disorder, depressed, | | | | Floor [place], [place] | | mild ([facility]) | | | | [address] | | | | | | [phone] | | | +--------+---------+ + + + [...] a 39 y.o. female who lives in [facility] her mom, children, and half the time [...] grandaughter. 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 She should continue to follow the gear machine operator's recommendations. 4. She should continue her current routine for exercise. 5. She is urged to participate in a Bariatric Surgery Support Group. 6. She needs to avoid carbonated beverages. 7. She needs to follow-up with me via [facility] in 4 weeks to update progress on the above r ecommendations. Total time I spent with the patient was approximately 55 minutes ncbw-gv-pudh with the deep ent, and approximately 15 minutes of administering testing and 1 hour and 40 minutes of non- vjqz-da-skxs interpreting and synthesizing results. Alda Hung, PhD [facility] 15TH FLOOR [address] [facility] Mail Code: Ch15[place] [address] documented in thi s encounter Plan of Treatment Not on filedocumented as of this encounter Procedures + +--------+ + + + | Procedure Name | Priori | Date/Time | Associated Diagnosis | Comments | | | ty | | | | + +--------+ + + + | [place] | Routin | 04/03/2019 | Morbid obesity [...] | + +--------+ + + + | [place] [facility] | Routin | 04/03/2019 | Morbid [...] | + +--------+ + + + | [place] [facility] | Routin | 04/03/2019 | Morbid obesity | | | TESTING EVAL QHP; | e | 9:17 PM | with BMI of | | | FIRST HOUR | | PDT | 50.0-59.9, adult | | | | | | ([facility]) Fabry disease | | | | | | ([facility]) Bipolar 1 | | | | | | disorder, depressed, | | | | | | mild ([facility]) | | + +--------+ + + + documented in this encounter Visit Diagnoses + + | Diagnosis | + + | Morbid obesity with BMI of 50.0-59.9, adult ([facility]) - Primary | + + | Fabry disease ([facility]) Lipidoses | + + | Bipolar 1 disorder, depressed, mild (HCC) Bipolar I disorder, most recent episode (or | | current) depressed, mild | + + documented in this encounter
--- OUTSIDE RECORDS SUMMARY | ~2020-02-07 | XMS | Encounter Summary ---
Demographics + + + | Address | [address] | | | [place] [address] | + + + | Home Phone [...] Team Providers + +------+ + | Care Exercise Teacher Name | Role | Phone | [...] [place] | | | | | | [facility] | | | | | | [address] [facility] | | | | | | [place]ine | | | | | | [facility] | | | | | | 7th Floor [place], | | | | | | [place] [address] | | | | | | [phone] | | | +--------+------+ + + + [...] (RANDOM | e | 2:48 PM | ([facility]) | procedure are in the | | [...] | + + + + + | [facility] DEPARTMENT OF | [address] | [place] [address] | | | PATHOLOGY | [address] [...] DEPARTMENT OF | [address] | [place] [address] | | | PATHOLOGY | [address] [...] At | + + + | [facility] ([address] [facility]) [facility] | [facility] | | [address] [place], [place] | REGIONAL | | [address] | LABORATORY | + + + + + + + + | Performing | Address | City/State/Zipcode | Phone Number | | Organization | | | | + + + + + | [facility] | [address] | [place] [address] | | | LABORATORY | | | [...] | + + + + + | [facility] | [address] | [place] [address] | | | PATHOLOGY | [address] [...] | | | DEPARTMENT | | | [place] | | | OF | | | [...] DEPARTMENT OF | [address] | [place] [address] | | | PATHOLOGY | [address] [...] | + + + + + | [facility] | [address] | [place] [address] | | | PATHOLOGY | [address] | | | + + + + + documented in this encounter Visit Diagnoses + + | Diagnosis | + + | Fabry disease (HCC) Lipidoses | + + documented in this encounter"
--- OUTSIDE RECORDS SUMMARY | ~2020-02-07 | XMS | Encounter Summary ---
Demographics + + + | Address | [address] | | | [place] [address] | + + + | Home Phone [...] Team Providers + +------+ + | Care Breading Machine Tender Name | Role | Phone | [...] | | | | | [address] [facility] | | | | | | Josephine | | | | | | [facility] | | | | | | 7th Floor [place], | | | | | | [place] [address] | | | | | | [phone] | | | +--------+------+ + + + [...] + + + + | [facility] | [address] | [place] [address] | | | PATHOLOGY | [address] [...] 147 (H)Comment: non-HDL | <130 mg/dL | [facility] | | | CHOLESTEROL | Cholesterol Reference [...] | + + + + + | [facility] DEPARTMENT OF | [address] | [place] [address] | | | PATHOLOGY | [address] [...] | | | DEPARTMENT | | | SWEDISH | | | OF | | | [...] [facility] DEPARTMENT | [address] | [place] [address] | | | PATHOLOGY | [address] [...] | + + + + + | [facility] DEPARTMENT OF | [address] | [place] [address] | | | PATHOLOGY | [address] | | | + + + + + CREATININE, URINE (12/24/2011 3:20 PM PDT) + +--------+ + + + | Component | Value | Ref Range | Performed | Pathologist | | | | | At | Signature | + +--------+ + + + | CREATININE | 223.38 | mg/dL | [facility] | | | CONC UR | | [...] + + + + | [facility] | [address] | [place] [address] | | | PATHOLOGY | [address] [...] DEPARTMENT OF | [address] | [place] [address] | | | PATHOLOGY | [address] | | | + + + + + documented in this encounter Visit Diagnoses + + | Diagnosis | + + | Fabry disease (HCC) Lipidoses | + + documented in this encounter"
--- OUTSIDE RECORDS SUMMARY | ~2020-02-07 | XMS | Encounter Summary ---
Demographics + + + | Address | [address] | | | [place] [address] | + + + | Home Phone [...] Team Providers + +------+ + | Care Pad Extraction Tender Name | Role | Phone | + +------+ + | Lexx Estiven | PCP | | + +------+ + Encounter Details +--------+ + + + + | Date | Type | Department | Care Team | Description | +--------+ + + + + | 12/28/ | Documentati | [facility] 7th | Deana Jimenez MD | | | 2013 | on | Floor [address] | [address] | | | | | St Mailcode: [facility] | [place], | | | | | [facility] [place], [place] | [place] [address] | | | | | [address] | [phone] | | | | | [phone] | | | +--------+ + + + [...]
--- OUTSIDE RECORDS SUMMARY | ~2020-02-07 | XMS | Encounter Summary ---
Demographics + + + | Address | [address] | | | [place] [address] | + + + | Home Phone [...] Team Providers + +------+ + | Care Ux Manager Name | Role | Phone | [...] [address] | | | | | | [employer] [place] | | | | | | [address] | | | +--------+ + + + [...]
--- OUTSIDE RECORDS SUMMARY | ~2020-02-07 | XMS | Encounter Summary ---
Demographics + + + | Address | [address] | | | [place] [address] | + + + | Home Phone [...] Providers + +------+ + | Care Financial Services Rep Name | Role | Phone | + [...] as of this encounter Progress Notes Interface, Data Processing Equipment Repairer In - 06/27/2005 5:05 AM PDT [id number] 06/25/2005 06/25/2005 [id number] IVA ZHU [address] [id number] or June 25, 2005 Dr. Andres [place] RE: JARVIS ENRIQUE MR #: [id number] Dear Dr. Andres: We saw your patient, Jarvis Enrique, in the Metabolic Clinic at [facility] on July 26, 2005. Jarvis has Fabry's [...] wish to discuss her care. ; fax: [phone]; email: [email or web address]. Sincerely, Fawad Muhammad M.D. Turning Machine Set Up Operator of Pediatrics and Molecular Medical Genetics e-mail:[email or web address] / [email or web address] / [id number] [email or web address] [email or web address] / documented i n this encounter Plan of Treatment Not on filedocumented as of this encounter Visit Diagnoses Not on filedocumented in this encounter"
--- OUTSIDE RECORDS SUMMARY | ~2020-02-07 | XMS | Encounter Summary ---
Demographics + + + | Address | [address] | | | [place] [address] | + + + | Home Phone [...] Team Providers + +------+ + | Care Deckhand Tuna Boat Name | Role | Phone | + [...] | 02/24/ | Telephone | [facility] 7th | SabinaFawad sterling, | Other (Pt has | | 2006 | | Floor [address] | MD | questions regarding | | | | St Mailcode: [facility] | | Jennifer and | | | | [facility] [place], [place] | | ) | | | | [address] | | | | | | [phone] | | | +--------+ + + + [...]
--- OUTSIDE RECORDS SUMMARY | ~2020-02-07 | XMS | Encounter Summary ---
Demographics + + + | Address | [address] | | | [place] [address] | + + + | Home Phone [...] Team Providers + +------+ + | Care Change Director Name | Role | Phone | [...] | 2019 | Visit | Center at [facility] [address] | | to excess calories | | | | [address] | | ([facility]) (Primary Dx) | | | | Mailcode: Center | | | | | | [facility] and | | | | | | [facility] 2 | | | | | | [place], [place] | | | | | | [address] | | | | | | [phone] | | | +--------+---------+ + + + [...] . Documented Time of Class: 60 minutes qjvf-zo-ncfc with patient OBJECTIVE: Height: Ht Readings from [...] Kathe Starks, MS, RDN, CSOWM, LD, CDE [facility] Bariatrics [phone] documented in this e ncounter Plan of Treatment Not on filedocumented as of this encounter Visit Diagnoses + + | Diagnosis | + + | Morbid obesity due to excess calories (HCC) - Primary | + + documented in this encounter
--- OUTSIDE RECORDS SUMMARY | ~2020-02-07 | XMS | Encounter Summary ---
Demographics + + + | Address | [address] | | | [place] [address] | + + + | Home Phone [...] Providers + +------+ + | Care Tie Buyer Name | Role | Phone | + +------+ + | Lexx Estiven DO | PCP | | + +------+ + Reason for Visit + + + | Reason | Comments | + + + | Prior Authorization | approved for [employer] [id number] until 09/14/2018 | | Request - Medication | | + + + Encounter Details +--------+ + + + + | Date | Type | Department | Care Team | Description | +--------+ + + + + | 10/09/ | Documentati | [facility] at [facility] 7th | Marcellus Rodriguez MD | Prior Authorization | | 2018 | on | Floor [address] | [address] [facility] | Request - Medication | | | | St Mailcode: [facility] | [facility] | (approved for | | | | [facility], [place] | [place], [place] | [employer] [id number] | | | | [address] | [address] | until 09/14/2018 ) | | | | [phone] | [phone] | | | | | | | [...]
--- OUTSIDE RECORDS SUMMARY | ~2020-02-07 | XMS | Encounter Summary ---
Demographics + + + | Address | [address] | | | [place] [address] | + + + | Home Phone [...] Team Providers + +------+ + | Care High Speed Printer Operator Name | Role | Phone | [...]
--- OUTSIDE RECORDS SUMMARY | ~2020-02-07 | XMS | Encounter Summary ---
Demographics + + + | Address | [address] | | | [place] [address] | + + + | Home Phone [...] Team Providers + +------+ + | Care Chart Calculator Name | Role | Phone | + [...] | | | | [address] | [place], [place] | | | | | | [address] | [address] | | | | | | [place], | Phone: | | | | | | [place] [address] | [phone] | | | | | | Phone: | Fax: | | | | | | [phone] | [phone] | | | | | | Fax: | | | | | | | [phone] | | +--------+--------+ + + + + Encounter Details +--------+---------+ + + + | Date | Type | Department | Care Team | Description | +--------+---------+ + + + | 11/04/ | Office | [facility] 7th | Marcellus Lyle MD | 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 | Visit | Floor [address] | [address] [facility] | heterozygous female | | | | St Mailcode: [facility] | [address] | ([facility]) (Primary Dx); | | | | [facility] [place], [place] | [place], [place] | Need for | | | | [address] | [address] | prophylactic | | | | [phone] | [phone] | vaccination and | | | | [...] with Dr Hugh Astudillo (pain clinic in [facility]). Noted a diminished reflex on the right [...] day. Mom has not yet seen a director of manufacturing. Had an echo some time ago (mom [...] echcardiogram and ECG and establish with a director of manufacturing. Her ERT is currently at a maximu m dose, but there are additional medications that could be considered if she has cardiac inv olvement. Plan: - Pain control per pain specialist and PCP - Yearly routine labs: UA dip, CBC w/diff - Obtain Echo and ECG, establish care with a director of manufacturing She Ascencio MD Pediatrics Resident, PGY-3 Pager #[phone] METABOLIC ATTENDING NOTE I personally interviewed the [...] | [facility] | | | GRAVITY | [place] performed by | | LABORATORY | | [...] | + + + + + | [facility] | [address] | [place] [address] | | | SERVICES, CORE | [address] [...]
--- OUTSIDE RECORDS SUMMARY | ~2020-02-07 | XMS | Encounter Summary ---
Demographics + + + | Address | [address] | | | [place] [address] | + + + | Home Phone [...] Team Providers + +------+ + | Care Shank Archer Name | Role | Phone | + [...] | 02/04/ | Telephone | [facility] at [facility] 7th | Shaina Barrett | Medication | | 2015 | | Floor [address] | management | | | | St Mailcode: [facility] | | | | | | [facility] [place], [place] | | | | | | [address] | | | | | | [phone] | | | +--------+ + + + [...]
--- OUTSIDE RECORDS SUMMARY | ~2020-02-07 | XMS | Encounter Summary ---
Demographics + + + | Address | [address] | | | [place] [address] | + + + | Home Phone [...] Team Providers + +------+ + | Care Election Assistant Name | Role | Phone | [...] | 09/11/ | Telephone | [facility] at [facility] 7th | Shaina Barrett | Prior Authorization | | 2016 | | Floor [address] | Request ([employer] | | | | St Mailcode: [facility] | | and HOME infusions | | | | [facility] [place], [place] | | approved) | | | | [address] | | | | | | [phone] | | | +--------+ + + + [...]
--- OUTSIDE RECORDS SUMMARY | ~2020-02-07 | XMS | Encounter Summary ---
Demographics + + + | Address | [address] | | | [place] [address] | + + + | Home Phone [...] Team Providers + +------+ + | Care Janitor And Cleaner Name | Role | Phone | [...] | | 2020 | | Center at [facility] [address] | | Review | | | | [address] | | | | | | Mailcode: Center | | | | | | [facility] and | | | | | | [facility] 2 | | | | | | [place], [place] | | | | | | [address] | | | | | | [phone] | | | +--------+ + + + [...]
--- OUTSIDE RECORDS SUMMARY | ~2020-02-07 | XMS | Encounter Summary ---
[...] Team Providers + +------+ + | Care Phys Asst Name | Role | Phone | + +------+ + | Lexx Estiven | PCP | | + +------+ + Encounter Details +--------+ + + + + | Date | Type | Department | Care Team | Description | +--------+ + + + + | 09/16/ | Documentati | [facility] at [facility] 7th | Marcellus Rodriguez MD | | | 2018 | on | Floor [address] | [address] | | | | | St Mailcode: [facility] | [facility] | | | | | [facility] [place], [place] | [place], [place] | | | | | [address] | [address] | | | | | [phone] | [phone] | | | | | | | [...]
--- OUTSIDE RECORDS SUMMARY | ~2020-02-07 | XMS | Encounter Summary ---
Demographics + + + | Address | [address] | | | [place] [address] | + + + | Home Phone [...] Team Providers + +------+ + | Care Guitar Repairer Name | Role | Phone | [...] | 2018 | on | Center at [facility] [address] | | | | | | [address] | | | | | | Mailcode: Robert | | | | | | for Health and | | | | | | Healing, Building [address] | | | | | | [place], [place] | | | | | | [address] | | | | | | [phone] | | | +--------+ + + + [...]
--- OUTSIDE RECORDS SUMMARY | ~2020-02-07 | XMS | Encounter Summary ---
Demographics + + + | Address | [address] | | | [place] [address] | + + + | Home Phone [...] Team Providers + +------+ + | Care Airport Maintenance Chief Name | Role | Phone | + +------+ + | Lexx Estiven | PCP | | + +------+ + Reason for Visit + + + | Reason | Comments | + + + | IV - Intravenous | [employer] Back at [facility] | | infusion | | + + + | Prior Authorization | Approved fro [employer] through 09/14/18 | | Request | | + + + Encounter Details +--------+ + + + + | Date | Type | Department | Care Team | Description | +--------+ + + + + | 11/06/ | Telephone | [facility] at [facility] 7th | Shaina Barrett | IV - Intravenous | | 2018 | | Floor [address] | [address] | infusion ([employer] | | | | St Mailcode: [facility] | | Back at | | | | [place], [place] | | Ernesto); Prior | | | | [address] | | Authorization | | | | [phone] | | Request (Approved | | | [...]
--- OUTSIDE RECORDS SUMMARY | ~2020-02-07 | XMS | Encounter Summary ---
Demographics + + + | Address | [address] | | | [place] [address] | + + + | Home Phone [...] Providers + +------+ + | Care Field Technical Specialist Name | Role | Phone | [...] | 03/06/ | Telephone | [facility] at [facility] 7th | Deidre Nguyen MD | Medication | | 2018 | | Floor [address] | [address] | management (needs | | | | St Mailcode: [facility] | Naty Isaacs [place], | carlin briceno ) | | | | [facility], [place] | [place] [address] | | | | | | [phone] | | | | | [phone] | | | +--------+ + + + [...]
--- OUTSIDE RECORDS SUMMARY | ~2020-02-07 | XMS | Encounter Summary ---
Demographics + + + | Address | [address] | | | [place] [address] | + + + | Home Phone [...] Team Providers + +------+ + | Care Payroll Technician Name | Role | Phone | [...] | 2016 | Visit | Center at [facility] [address] | | BMI of 60.0-69.9, | | | | [address] | | adult (HCC) (Primary | | | | Mailcode: Center | | Dx) | | | | for Health and | | | | | | [facility], [facility] 2 | | | | | | [place], [place] | | | | | | [address] | | | | | | [phone] | | | +--------+---------+ + + + [...] of Class: 2:00/3:00 until 3:00/4:00 (60 minutes abax-zu-wanq with patient) OBJECTIVE: Height: Ht Readings from [...] or sharing information. Yes [address], [facility], [place] [facility] Bariatrics [phone] documented in this enc ounter Plan of Treatment Not on filedocumented as of this encounter Visit Diagnoses + + | Diagnosis | + + | Morbid obesity with BMI of 60.0-69.9, adult (HCC) - Primary | + + documented in this encounter
--- OUTSIDE RECORDS SUMMARY | ~2020-02-07 | XMS | Encounter Summary ---
Demographics + + + | Address | [address] | | | [place] [address] | + + + | Home Phone [...] Providers + +------+ + | Care Legal Assistant Name | Role | Phone [...] | 06/15/ | Telephone | [facility] at [facility] 7th | Shaina Barrett | Medication | | 2013 | | Floor [address] | management | | | | St Mailcode: [facility] | | ([employer] | | | | [facility] [place], [place] | | increased) | | | | [address] | | | | | | [phone] | | | +--------+ + + + [...]
--- OUTSIDE RECORDS SUMMARY | ~2020-02-07 | XMS | Encounter Summary ---
Demographics + + + | Address | [address] | | | [place] [address] | + + + | Home Phone [...] Team Providers + +------+ + | Care Car Designer Name | Role | Phone | [...] | 08/05/ | Telephone | [facility] at [facility] 7th | Marcellus Rodriguez MD | Medication | | 2016 | | Floor [address] | [address] | management (Home | | | | St Mailcode: [facility] | [facility] | [facility]) | | | | [facility], [place] | [place], [place] | | | | | [address] | [address] | | | | | [phone] | [phone] | | | | | | | [...]
--- OUTSIDE RECORDS SUMMARY | ~2020-02-07 | XMS | Encounter Summary ---
Demographics + + + | Address | [address] | | | [place] [address] | + + + | Home Phone [...] Providers + +------+ + | Care Sales Recruitment Specialist Name | Role | Phone | [...] | 2019 | Visit | Center at [facility] [address]113 | | to excess calories | | | | [address] | | ([facility]) (Primary Dx) | | | | Mailcode: Center | | | | | | [facility] and | | | | | | [facility] 2 | | | | | | [place], [place] | | | | | | [address] | | | | | | [phone] | | | +--------+---------+ + + + [...] . Documented Time of Class: 60 minutes smjj-qc-wohz with patient OBJECTIVE: Height: Ht Readings from [...] Kathe Starks, MS, RDN, CSOWM, LD, CDE [facility] Bariatrics [phone] documented in this e ncounter Plan of Treatment Not on filedocumented as of this encounter Visit Diagnoses + + | Diagnosis | + + | Morbid obesity due to excess calories (HCC) - Primary | + + documented in this encounter
--- OUTSIDE RECORDS SUMMARY | ~2020-02-07 | XMS | Encounter Summary ---
Demographics + + + | Address | [address] | | | [place] [address] | + + + | Home Phone [...] Providers + +------+ + | Care Payroll Associate Name | Role | Phone | [...] | | Michael | [address] | [address] [facility] | | | | | | Hospital | [facility] | | | | | | Internal | [address] [place], | | | | | | Medicin | [place] | | | | | | [address] | [address] | | | | | | Manolo Cartwright | Phone: | | | | | | [place], | [phone] | | | | | | [place] [address] | Fax: | | | | | | Phone: | [phone] | | | | | | [phone] | | | | | | | Fax: | | | | | | | [phone] | | +--------+--------+ + + + + Encounter Details +--------+---------+ + + + | Date | Type | Department | Care Team | Description | +--------+---------+ + + + | 09/17/ | Office | [facility] at [facility] 7th | Marcellus Rodriguez MD | Fabry disease in | | 2017 | Visit | Floor [address] | [address] [facility] | heterozygous female | | | | St Mailcode: [facility] | [address] | ([facility]) (Primary Dx) | | | | [facility] [place], [place] | [place], [place] | | | | | [address] | [address] | | | | | [phone] | [phone] | | | | | | | [...] one year. Marcellus Rodriguez MD [facility] AT [facility] [address]TH [address] [place] [address] Mailcode: [place] [address] [phone] signed by Marcellus Rodriguez MD at 09/18/2016 11:50 AM PSTdocumented in this encounter Plan of Treatment Not on filedocumented as of this encounter Visit Diagnoses + + | Diagnosis | + + | Fabry disease in heterozygous female (HCC) - Primary | + + documented in this encounter"
--- OUTSIDE RECORDS SUMMARY | ~2020-02-07 | XMS | Encounter Summary ---
Demographics + + + | Address | [address] | | | [place] [address] | + + + | Home Phone [...] Providers + +------+ + | Care Scrap Materials Buyer Name | Role | Phone | [...] | | 2018 | Encounter | at [facility] | B, APPLICATION DEVELOPMENT PROJECT MANAGER [address] | | | | | [address] [facility] | [facility] | | | | | [place] | [place], [place] | | | | | [facility] | [address] | | | | | [address] [place] [address], | [phone] | | | | | [place] [address] | | | | | | [phone] | | | +--------+ + + + [...]
--- OUTSIDE RECORDS SUMMARY | ~2020-02-07 | XMS | Encounter Summary ---
Demographics + + + | Address | [address] | | | [place] [address] | + + + | Home Phone [...] Providers + +------+ + | Care Client Server Developer Name | Role | Phone | [...] | 01/04/ | Documentati | [facility] at [facility] 7th | Shaina Barrett | Medication | | 2012 | on | Floor [address] | management | | | | St Mailcode: [facility] | | ([employer] has been | | | | [facility] [place], [place] | | approved) | | | | [address] | | | | | | [phone] | | | +--------+ + + + [...]
[~2020-02-07 09:17] MED LIST changes: +FLAGYL500 MG PO; +LEVAQUIN500 MG PO; +PROTONIX20 MG PO
--- OUTSIDE RECORDS SUMMARY | 2020-02-07 09:20 | XMS ---
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 ENRIQUE Security Telecom Analyst Events No recent Security Events currently on file CRITERIA MET - [facility] - Has Care Guidelines - PDMP CARE PROVIDERS MERLE SHARMA Internal Medicine 10/12/2018-Current PHONE: [phone] MADDIE TAVARES Internal Medicine: Pulmonary Disease 11/10/2019-Current PHONE: Unknown Guidelines Source: [facility] Guidelines Date: 11/10/2019 Care Coordination: Currently engaged in medication management services with [facility].\T\nbsp; Please contact [facility] with any mental health concerns.\T\nbsp;\T\nbsp; [place] Office:\T\nbsp; [phone] [facility] Crisis: [phone]. Care History Medical/Surgical 11/10/2019 [facility] Patient has scheduled appointment with Dr. Barajas on 11/29/2019 10/12/2018 [facility] - - Patient is currently established with [facility]. If patient is seen in the ED during business hours. Please contact [facility] at [facility]. Care Recommendation: If this patient has had 5 or more Emergency Department visits in the last 12 months.\T\nbsp; Patient will require education on the scope and purpose of the ED as an acute care provider not a Primary Care Provider and should not be utilized for chronic conditions.\T\nbsp; These are guidelines and the provider should exercise clinical judgment when providing care. E.D. VISIT COUNT (12 MO.) 2 [facility] TOTAL 2 NOTE: Visits indicate total known visits. ED/C VISIT TRACKING (12 MO.) 02/07/2020 09:18 [facility] [place] TYPE: Emergency COMPLAINT: - EYE PAIN, VISION PROBLEM 11/09/2019 22:[address] [facility] [place] TYPE: Emergency COMPLAINT: - MEDICATION ISSUE DIAGNOSES: - Essential (primary) hypertension - Adverse effect of other systemic antibiotics, initial encount - Type 2 diabetes mellitus without complications - Dental caries, unspecified - Other specified disorders of teeth and supporting structures - Bipolar disorder, unspecified - Vomiting, unspecified INPATIENT VISIT TRACKING (12 MO.) No inpatient visits to display in this time frame [id number]
[2020-02-07] MEDS ORDERED: VALTREX500 MG PO (11:25)
[2020-02-07] MEDS ORDERED: ERYTHROMYCIN1 GM OD (11:25)
== END 2020-02-07 11:34 | disposition home or self-care (01) ==
LOC: ED 09:17
DX: H10.9 Unspecified conjunctivitis (principal); I10 Essential (primary) hypertension; E11.9 Type 2 diabetes mellitus without complications; F31.9 Bipolar disorder, unspecified; Z88.2 Allergy status to sulfonamides; Z88.0 Allergy status to penicillin; Z88.8 Allergy status to other drugs, medicaments and biological substances
CPT/HCPCS: 99283

== ENCOUNTER 2020-06-09 13:30 | Emergency (ER) | payer MEDICARE, OTHER ==
[~2020-06-09] VITALS: Ht 157.5 cm; Wt 153.9 kg
--- OUTSIDE RECORDS SUMMARY | ~2020-06-09 | XMS | Encounter Summary ---
Demographics + + + | Address | [address] | | | [place] [address] | + + + | Home Phone | | + + + | Preferred Language | Unknown | + + + | Marital Status | Single | + + + | Samaritan Affiliation | Unknown | + + + | Race | White | + + + | Ethnic Group | Not or | + + + Author + + + | Author | [facility] | + + + | Organization | [facility] | + + + | Address | Unknown | + + + | Phone | Unavailable | + + + Support + + +---------+ + | Name | Relationship | Address | Phone | + + +---------+ + | John Miguel | ECON | Unknown | | + + +---------+ + Care Team Providers + +------+ + | Care Pearl Technician Name | Role | Phone | + +------+ + | Estiven Hallman | PCP | | + +------+ + Encounter Details +--------+------+ + + + | Date | Type | Department | Care Team | Description | +--------+------+ + + + | 02/03/ | Lab | Laboratory at [facility] | | Morbid obesity, | | 2017 | | [address] | | unspecified obesity | | | | Center for [facility] | | type (HCC) | | | | and Healing, | | | | | | [address] | | | | | | [place], [place] | | | | | | [address] | | | | | | [phone] | | | +--------+------+ + + + [...] on file | | + + + documented as of this encounter Plan of Treatment +--------+ + + + + | Date | Type | Specialty | Care Team | Description | +--------+ + + + + | 06/05/ | Procedure | Surgery | | | | 2021 | Pass | | | | +--------+ + + + + documented as of this encounter Procedures + +--------+ [...] | | | | PDT | type ([facility]) | results section. | + +--------+ + + + | LIPID SET (TRIG, T | Routin | 02/03/2017 | Morbid obesity, | Results for this | | CHOL, HDL, CALC LDL) | e | 12:18 PM | unspecified obesity | procedure are in the | | | | PDT | type ([facility]) | results section. | + +--------+ + + + | HEMOGLOBIN A1C, | Routin | 02/03/2017 | Morbid obesity, | Results for this | | BLOOD | e | 12:18 PM | unspecified obesity | procedure are in the | | | | PDT | type ([facility]) | results section. | + +--------+ + [...] glycated albumin should be considered for monitoring exterminator | LABORATORY | | glycemic control in [...] + + | [facility] | [address] | [place] [address] | | | SERVICES, SPECIAL | PARK [...] + + | [facility] | [address] | [place] [address] | | | SERVICES, CORE | PARK [...] | + + + + + | [facility] | [address] | [place] [address] | | | JOCELYN, MARAL | [address] | | | + + + + [...] [facility] | [address] | [place] [address] | | | SERVICES, CORE | PARK [...] + + | [facility] | [address] | [place] [address] | | | SERVICES, CORE | PARK [...] + + | [facility] | [address] | [place] [address] | | | SERVICES, CORE | PARK [...] | | | LABORATORY | | | SRI LANKAN | | | SERVICES, | | | [...] | + + + + + | [facility] | [address] | [place] [address] | | | SERVICES, CORE | [address] | | | + + + + + documented in this encounter Visit Diagnoses + + | Diagnosis | + + | Morbid obesity, unspecified obesity type (HCC) | + + documented in this encounter"
--- OUTSIDE RECORDS SUMMARY | ~2020-06-09 | XMS | Encounter Summary ---
Demographics + + + | Address | [address] | | | [place] [address] | + + + | Home Phone | | + + + | Preferred Language | Unknown | + + + | Marital Status | Single | + + + | Jehovah'S Witness Affiliation | Unknown | + + + | Race | White | + + + | Ethnic Group | Not or | + + + Author + + + | Author | [facility] | + + + | Organization | [facility] | + + + | Address | Unknown | + + + | Phone | Unavailable | + + + Support + + +---------+ + | Name | Relationship | Address | Phone | + + +---------+ + | John Migeul | ECON | Unknown | | + + +---------+ + Care Team Providers + +------+ + | Care Sales Demonstrator Name | Role | Phone | + +------+ + | Lexx Estiven | PCP | | + +------+ + Encounter Details +--------+------+ + + + | Date | Type | Department | Care Team | Description | +--------+------+ + + + | 03/29/ | Lab | Lab Center at | | Fabry disease (HCC) | | 2013 | | [place] | | | | | | [facility] | | | | | | [address] [facility] | | | | | | [place] | | | | | | [facility] | | | | | | 7th Floor [place], | | | | | | [place] [address] | | | | | | [phone] | | | +--------+------+ + + + [...] | + +--------+ + + + | CBC AND AUTO DIFF | Routin | 03/29/2014 | Fabry disease | Results for this | | | e | 2:45 PM | (HCC) | procedure are in the | | | | PDT | | results section. | + +--------+ + + + | CBC, WITH | Routin | 03/29/2014 | Fabry disease | Results for this | | DIFFERENTIAL | e | 2:45 PM | (HCC) | procedure are in the | | | | PDT | | results section. | + +--------+ + + + | COMPLETE METABOLIC | Routin | 03/29/2014 | Fabry disease | Results for this | | SET | e | 2:45 PM | (HCC) | procedure are in the | | (NA,K,CL,CO2,BUN,CRE | | PDT | | results section. | | AT,GLUC,CA,AST,ALT,B | | | | | | BECCA TOTAL,ALK | | | | | | PHOS,ALB,PROT TOTAL) | | | | | + +--------+ + + + documented in this encounter Results CBC AND AUTO DIFF (03/29/2014 2:45 PM PDT) + + + + + + | Component | Value | Ref Range | Performed | Pathologist | | | | | At | Signature | + + + + + + | WHITE CELL | 9.16 | 4.40 - 11.00 | [facility] | | | COUNT | | K/cu mm | LABORATORY | | | | | | SERVICES, | | | | | | CORE | | + + + + + + | RED CELL | 4.16 | 4.00 - 5.20 | [facility] | | | COUNT | | M/cu mm | LABORATORY | | | | | | SERVICES, | | | | | | CORE | | + + + + + + | HEMOGLOBIN | 10.8 (L) | 12.0 - 16.0 | [facility] | | | | | g/dL | LABORATORY | | | | | | SERVICES, | | | | | | CORE | | + + + + + + | HEMATOCRIT | 34.5 (L) | 36.0 - 46.0 % | [facility] | | | | | | LABORATORY | | | | | | SERVICES, | | | | | | CORE | | + + + + + + | MCV | 82.9 | 80.0 - 96.0 fL | [facility] | | | | | | LABORATORY | | | | | | SERVICES, | | | | | | CORE | | + + + + + + | MCHC | 31.3 | 33.0 - 35.5 | [facility] | | | | | g/dL | LABORATORY | | | | | | SERVICES, | | | | | | CORE | | + + + + + + | RDW SD | 45.7 | 35.1 - 46.3 fL | [facility] | | | | | | LABORATORY | | | | | | SERVICES, | | | | | | CORE | | + + + + + + | PLATELET | 244 | 150 - 400 K/cu | [facility] | | | COUNT | | mm | LABORATORY | | | | | | SERVICES, | | | | | | CORE | | + + + + + + | MPV | 10.3 | 9.7 - 12.3 fL | [facility] | | | | | | LABORATORY | | | | | | SERVICES, | | | | | | CORE | | + + + + + + | NRBC% | 0.0 | 0.0 - 0.3 % | [facility] | | | | | | LABORATORY | | | | | | SERVICES, | | | | | | CORE | | + + + + + + | NRBC# | 0.00 | 0.00 - 0.02 | [facility] | | | | | K/cu mm | LABORATORY | | | | | | SERVICES, | | | | | | CORE | | + + + + + + | NEUTROPHIL | 64.7 | 50.0 - 70.0 % | [facility] | | | % | | | LABORATORY | | | | | | SERVICES, | | | | | | CORE | | + + + + + + | LYMPHOCYTE | 27.1 | 18.0 - 42.0 % | [facility] | | | % | | | LABORATORY | | | | | | SERVICES, | | | | | | CORE | | + + + + + + | MONOCYTE % | 6.6 | 3.5 - 9.0 % | [facility] | | | | | | LABORATORY | | | | | | SERVICES, | | | | | | CORE | | + + + + + + | EOS % | 1.3 | 1.0 - 3.0 % | [facility] | | | | | | LABORATORY | | | | | | SERVICES, | | | | | | CORE | | + + + + + + | BASO % | 0.1 | 0.0 - 2.0 % | [facility] | | | | | | LABORATORY | | | | | | SERVICES, | | | | | | CORE | | + + + + + + | IG% | 0.2 | 0.0 - 0.6 % | [facility] | | | | | | LABORATORY | | | | | | SERVICES, | | | | | | CORE | | + + + + + + | NEUTROPHIL | 5.93 | 1.80 - 7.70 | [facility] | | | # | | K/cu mm | LABORATORY | | | | | | SERVICES, | | | | | | CORE | | + + + + + + | LYMPHOCYTE | 2.48 | 1.00 - 4.80 | [facility] | | | # | | K/cu mm | LABORATORY | | | | | | SERVICES, | | | | | | CORE | | + + + + + + | MONOCYTE # | 0.60 | 0.10 - 0.90 | [facility] | | | | | K/cu mm | LABORATORY | | | | | | SERVICES, | | | | | | CORE | | + + + + + + | EOS # | 0.12 | 0.00 - 0.50 | [facility] | | | | | K/cu mm | LABORATORY | | | | | | SERVICES, | | | | | | CORE | | + + + + + + | BASO # | 0.01 | 0.00 - 0.10 | [facility] | | | | | K/cu mm | LABORATORY | | | | | | SERVICES, | | | | | | CORE | | + + + + + + | IG# | 0.02 | 0.00 - 0.03 | [facility] | | | | | K/cu mm | LABORATORY | | | | | | SERVICES, | | | | | | CORE | | + + + + + + + + | Specimen | + + | Blood - Blood | + + + + + | Narrative | Performed At | + + + | Immature Granulocytes (IG) include metamyelocytes, myelocytes | [facility] | | and promyelocytes. Bands are not included in the IG count. Bands are | LABORATORY | | included in the neutrophil count. | [address] | + + + + + + + + | Performing | Address | City/State/Zipcode | Phone Number | | Organization | | | | + + + + + | [facility] | [address] | [place] [address] | | | [facility] [place] | [address] | | | + + + + + COMPLETE METABOLIC SET (NA,K,CL,CO2,BUN,CREAT,GLUC,CA,AST,ALT,BILI TOTAL,ALK PHOS,ALB,PROT TOTAL) (03/29/2014 2:45 PM PDT) + +---------+ + + + [...] + + + | BUN, PLASMA | 6 | 6 - 20 mg/dL | [facility] | | | (LAB) | | | LABORATORY | | | | | | SERVICES, | | | | | | CORE | | + +---------+ + + + | CREATININE | 0.77 | 0.60 - 1.10 | [facility] | | | PLASMA | | mg/dL | LABORATORY | | | (LAB) | | | SERVICES, | | | | | | CORE | | + +---------+ + + + | EGFR | >60 | >60 mL/min | [facility] | | | - | | | LABORATORY | | | [facility] | | | SERVICES, | | | | | | CORE | | + +---------+ + + + | EGFR NON | >60 | >60 mL/min | [facility] | | | -TYRONE | | | LABORATORY | | | R[facility] | | | SERVICES, | | | | | | CORE | | + +---------+ + + + | SODIUM, | 142 | 136 - 145 | [facility] | | | PLASMA | | mmol/L | LABORATORY | | | (LAB) | | | SERVICES, | | | | | | CORE | | + +---------+ + + + | POTASSIUM, | 3.8 | 3.4 - 5.0 | [facility] | | | PLASMA | | mmol/L | LABORATORY | | | (LAB) | | | SERVICES, | | | | | | CORE | | + +---------+ + + + | CHLORIDE, | 107 | 97 - 108 mmol/L | [facility] | | | PLASMA | | | LABORATORY | | | (LAB) | | | SERVICES, | | | | | | CORE | | + +---------+ + + + | TOTAL CO2, | 28 | 21 - 32 mmol/L | [facility] | | | PLASMA | | | LABORATORY | | | (LAB) | | | SERVICES, | | | | | | CORE | | + +---------+ + + + | CALCIUM, | 9.1 | 8.6 - 10.2 | [facility] | | | PLASMA | | mg/dL | LABORATORY | | | (LAB) | | | SERVICES, | | | | | | CORE | | + +---------+ + + + | BILIRUBIN | 0.2 (L) | 0.3 - 1.2 mg/dL | [facility] | | | TOTAL | | | LABORATORY | | | | | | SERVICES, | | | | | | CORE | | + +---------+ + + + | TOTAL | 7.3 | 6.4 - 8.2 g/dL | [facility] | | | PROTEIN, | | | LABORATORY | | | PLASMA | | | SERVICES, | | | (LAB) | | | CORE | | + +---------+ + + + | ALBUMIN, | 3.5 | 3.5 - 4.7 g/dL | [facility] | | | PLASMA | | | LABORATORY | | | (LAB) | | | SERVICES, | | | | | | CORE | | + +---------+ + + + | ALK PHOS | 101 (H) | 42 - 98 U/L | [facility] | | | | | | LABORATORY | | | | | | SERVICES, | | | | | | CORE | | + +---------+ + + + | AST(SGOT) | 21 | 15 - 41 U/L | [facility] | | | | | | LABORATORY | | | | | | SERVICES, | | | | | | CORE | | + +---------+ + + + | ALT (SGPT) | 27 | 12 - 60 U/L | [facility] | | | | [...] + + + | ANION GAP | 7 | mmol/L | [facility] | | | | | | LABORATORY | | | | | | SERVICES, | | | | | | CORE | | + +---------+ + + + + + | Specimen | + + | Blood - Blood | + + + + + | Narrative | Performed At | + + + | GFR is estimated using the MDRD equation recommended by the | [facility] | | National Kidney Disease Education Program. Estimated GFR | LABORATORY | | Interpretive Information: <60 mL/min/1.73 sq m | JOCELYN, CORE | | Chronic Kidney Disease <15 [...] | + + + + + | [facility] [employer] | [address] | [place] [address] | | | [place] | [address] | | | + + + + + documented in this encounter Visit Diagnoses + + | Diagnosis | + + | Fabry disease (HCC) Lipidoses | + + documented in this encounter"
--- OUTSIDE RECORDS SUMMARY | ~2020-06-09 | XMS | Encounter Summary ---
Demographics + + + | Address | [address] | | | [place] [address] | + + + | Home Phone | | + + + | Preferred Language | Unknown | + + + | Marital Status | Single | + + + | Holiness Affiliation | Unknown | + + + | Race | White | + + + | Ethnic Group | Not or | + + + Author + + + | Author | [facility] | + + + | Organization | [facility] | + + + | Address | Unknown | + + + | Phone | Unavailable | + + + Support + + +---------+ + | Name | Relationship | Address | Phone | + + +---------+ + | John Miguel | ECON | Unknown | | + + +---------+ + Care Team Providers + +------+ + | Care Banana Loader Name | Role | Phone | + +------+ + | Lexx Estiven | PCP | | + +------+ + Encounter Details +--------+ + + + + | Date | Type | Department | Care Team | Description | +--------+ + + + + | 01/07/ | Documentati | Dig[facility]ive [facility] | Kathleen Canchola, | | | 2017 | on | Center at [facility] [address] | ACNP [address] | | | | | [address] | [address] [facility] [place] | | | | | for Health and | [address] | | | | | [facility], [address] | [phone] | | | | | [place], [place] | | | | | | [address] | | | | | | [phone] | | | +--------+ + + + [...] + + documented as of this encounter Visit Diagnoses Not on filedocumented in this encounter"
--- OUTSIDE RECORDS SUMMARY | ~2020-06-09 | XMS | Encounter Summary ---
Demographics + + + | Address | [address] | | | [place] [address] | + + + | Home Phone | | + + + | Preferred Language | Unknown | + + + | Marital Status | Single | + + + | Mosque Affiliation | Unknown | + + + [...] Team Providers + +------+ + | Care Animal Rehabilitator Name | Role | Phone | + +------+ + | Lexx Estiven | PCP | | + +------+ + Reason for Visit + +--------+ + | Reason | Onset | Comments | | | Date | | + +--------+ + | Medication | 11/15/ | [facility] Orders for Home Infusion | | administration case | 2016 | | | management | | | + +--------+ + Encounter Details +--------+ + + + + | Date | Type | Department | Care Team | Description | +--------+ + + + + | 11/15/ | Telephone | [facility] at [facility] 7th | Shaina Barrett | Medication | | 2017 | | Floor [address] | BRYCE Alfaro | administration case | | | | St Mailcode: [facility] | | management | | | | [facility] [place], [place] | | ([facility] Orders | | | | [address] | | for Home Infusion ) | | | | [phone] | | | +--------+ + + + [...] + + documented as of this encounter Miscellaneous Notes Telephone Encounter - Shaina Barrett FNP - 11/15/2016 11:06 AM PSTFAXed reviewed, andrey roved and signed orders to [facility]. ([phone] Fax and [phone]) See scanned document for details. Infusion of 140 mg in 250 mL NS over 1.5 hours at home. Shaina Barrett, [place], MPH, INFORMATION TECHNOLOGY AUDITOR- Nurse Practitioner, [facility] Electronically signed by BRYCE Palm at 11:07 AM PSTdocumented in this encounter Plan of Treatment +--------+ + [...]
--- OUTSIDE RECORDS SUMMARY | ~2020-06-09 | XMS | Encounter Summary ---
Demographics + + + | Address | [address] | | | [place] [address] | + + + | Home Phone | | + + + | Preferred Language | Unknown | + + + | Marital Status | Single | + + + | Anglican Affiliation | Unknown | + + + | Race | White | + + + | Ethnic Group | Not or | + + + Author + + + | Author | [facility] | + + + | Organization | [facility] | + + + | Address | Unknown | + + + | Phone | Unavailable | + + + Support + + +---------+ + | Name | Relationship | Address | Phone | + + +---------+ + | John Miguel | ECON | Unknown | | + + +---------+ + Care Team Providers + +------+ + | Care Hotel Operation Manager Name | Role | Phone | + +------+ + | Lexx Estiven | PCP | | + +------+ + Encounter Details +--------+ + + + + | Date | Type | Department | Care Team | Description | +--------+ + + + + | 06/16/ | Telephone | [facility] at [facility] 7th | Shaina Barrett | | | 2013 | | Floor [address] | | | | | St Mailcode: [facility] | | | | | | [facility] [place], [place] | | | | | | [address] | | | | | | [phone] | | | +--------+ + + + [...]
--- OUTSIDE RECORDS SUMMARY | ~2020-06-09 | XMS | Encounter Summary ---
Demographics + + + | Address | [address] | | | [place] [address] | + + + | Home Phone | | + + + | Preferred Language | Unknown | + + + | Marital Status | Single | + + + | Mandaeism Affiliation | Unknown | + + + | Race | White | + + + | Ethnic Group | Not or | + + + Author + + + | Author | [facility] | + + + | Organization | [facility] | + + + | Address | Unknown | + + + | Phone | Unavailable | + + + Support + + +---------+ + | Name | Relationship | Address | Phone | + + +---------+ + | John Miguel | ECON | Unknown | | + + +---------+ + Care Team Providers + +------+ + | Care Flaking Roll Operator Name | Role | Phone | + +------+ + | Estiven Hallman DO | PCP | | + +------+ + Reason for Visit Office Visit - E/M Services (Routine) +--------+--------+ + + + + | Status | Reason | Specialty | Diagnoses / | Referred By | Referred To | | | | | Procedures | Contact | Contact | +--------+--------+ + + + + | Closed | | [facility] | Procedures | Tiana Hallman Zzcdr | | | | Metabolic | 11/11/16 | DO Estiven | Metabolic | | | | | [facility] | [facility] | [address] | | | | | | Hospital | St | | | | | | Internal | Mailcode: | | | | | | Medicin | [facility] | | | | | | [address] | [place], [place] | | | | | | [address] | [address] | | | | | | [place], | Phone: | | | | | | [place] [address] | [phone] | | | | | | Phone: | Fax: | | | | | | [phone] | [phone] | | | | | | Fax: | | | | | | | [phone] | | +--------+--------+ + + + + Encounter Details +--------+---------+ + + + | Date | Type | Department | Care Team | Description | +--------+---------+ + + + | 11/04/ | Office | [facility] at [facility] 7th | Marcellus Lyle MD | 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 | Visit | Floor [address] | [address] [facility] | heterozygous female | | | | St Mailcode: [facility] | [address] | ([facility]) (Primary Dx); | | | | [facility] [place], [place] | [place], [place] | Need for | | | | [address] | [address] | prophylactic | | | | [phone] | [phone] | vaccination and | | | | | | inoculation against | | | | | | influenza | +--------+---------+ + + + Social History + +-------+ [...] + + documented as of this encounter Last Filed Vital Signs + + + + + | Vital Sign | Reading | Time Taken | Comments | + + + + + | Blood Pressure | 113/76 | 11/04/2017 1:37 PM | | | | | PST | | + + + + + | Pulse | 80 | 11/04/2017 1:37 PM | | | | | PST | | + + + + + | Temperature | - | - | | + + + + + | Respiratory Rate | - | - | | + + + + + | Oxygen Saturation | - | - | | + + + + + | Inhaled Oxygen | - | - | | | Concentration | | | | + + + + + | Weight | 166.3 kg (366 lb 10 | 11/04/2017 1:37 PM | | | | oz) | PST | | + + + + + | Height | 163.5 cm (5' 4.37") | 11/04/2017 1:37 PM | | | | | PST | | + + + + + | Body Mass Index | 62.21 | 11/04/2017 1:37 PM | | | | | PST | | + + + + + documented in this encounter Progress Notes She Nye MD - 11/04/2017 2:00 PM PSTFormatting of this note might be di fferent from the original. 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 She is here for routine follow up. Has been doing the enzyme infusions for a few years. Previously doing home infusions. Now doing them at the hospital which mom thinks is easier for her son Enoch, who also has Fabry disease. Infusions are every 2 weeks. Mom felt like symptoms initially improved with home in fusions. Jarvis reports she is in pain. Pain is mostly in her feet, legs, lower back and hands. Spoke with Dr Hugh Astudillo (pain clinic in [facility]). Noted a diminished reflex on the right s lonny, they think she may have a pinched nerve. Is being prescribed Voltaren gel. Helps some b ut needs multiple reapplication throughout the day. Jarvis also has diabetes. PCP believes th at the pain is more related to diabetic neuropathy. Was diagnosed with diabetes 2 years ago. Takes lyrics. PCP stopped Tramadol. Jarvis is finding the pain very debilitating. Sometimes doesn't get out of bed. Is also having diarrhea. Her stools are very watery. Diarrhea is about the same as last vis it. Has 6-7 stools a day. Mom has not yet seen a vp production. Had an echo some time ago (mom unsure when). Medications: Current Outpatient Prescriptions on File Prior to Visit Medication Sig Dispense Refill acetaminophen 325 mg Oral tablet Take 325 mg by mouth every four hours as needed. 2 tab s daily for headaches. Indications: HEADACHE DISORDER Agalsidase Beta (FABRAZYME) 35 mg intravenous recon soln Inject 140 mg into the vein (I V) every fourteen days. Indications: Fabry Disease 140 mg 26 amitriptyline 25 mg Oral Tablet Take 75 mg by mouth once daily at bedtime. Pt reports t aking three tablets once per day CARAFATE 100 mg/mL oral suspension 0 cetirizine 10 mg oral tablet Take 10 mg by mouth once daily. 1 ergocalciferol 50,000 unit oral capsule Take 1 capsule by mouth every seven days. Indic ations: Vitamin D Deficiency (High Dose Therapy) 52 capsule 0 estradiol 1 mg oral tablet 1 ferrous gluconate 240 mg total salt (27 mg elemental iron) oral tablet Take 2 tablets b y mouth once daily. Take with 500 mg of Vit c Indications: low ferritin 60 tablet 5 glipiZIDE ER 10 mg oral tablet extended release 24hr Take 10 mg by mouth once daily. 1 hydrOXYzine pamoate 50 mg oral capsule Take 50 mg by mouth once daily. 0 JANUVIA 100 mg oral tablet 1 L-Methylfolate (DEPLIN) 15 mg Oral Tablet Take 15 mg by mouth once daily. LATUDA 120 mg oral tablet 0 LYRICA 75 mg oral capsule Take 75 mg by mouth three times daily. 0 MELOXICAM (MOBIC ORAL) Take 15 mg by mouth once daily. metFORMIN SR 500 mg oral tablet extended release 24 hr 3 omeprazole 20 mg oral capsule,delayed release(DR/EC) two times daily. 1 ondansetron 4 mg oral tablet 8 mg. 1 prazosin 2 mg oral capsule Take 4 mg by mouth once daily at bedtime. 0 PLUS, CALCIUM CARB, 27 mg iron- 1 mg oral tablet 0 promethazine 25 mg Oral Tablet Take 25 mg by mouth two times daily. propranolol 40 mg oral tablet Take 40 mg by mouth three times daily. 0 traMADol 50 mg oral tablet 0 venlafaxine 75 mg oral tablet extended release 24hr 0 venlafaxine XR 37.5 mg oral capsule,extended release 24hr 0 VICTOZA 2-DESTINEE 0.6 mg/0.1 mL (18 mg/3 mL) subcutaneous pen injector Inject 1.8 mg under the skin (SUBC) once daily. 1 No current facility-administered medications on file prior to visit. Diet: Low sugar, low carb ROS: +muscle cramps, weakness. No trouble breathing. Dizziness with standing that often imp roves with laying down (has been referred to a "diabetes doctor"). No dysuria. No rash at pr esent. Sees "floaters" at night. +Difficulty falling asleep. 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 She christensen s ongoing pain in her extremieies and diarrhea. Her peripheral pain is a well known complica tion of Fabry disease and occurs in up to 90% of females with the disorder. Recommend contin ue pain management per PCP and pain specialist. It will also be important for Jarvis to have an echcardiogram and ECG and establish with a vp production. Her ERT is currently at a maximu m dose, but there are additional medications that could be considered if she has cardiac inv olvement. Plan: - Pain control per pain specialist and PCP - Yearly routine labs: UA dip, CBC w/diff - Obtain Echo and ECG, establish care with a vp production She Ascencio MD Pediatrics Resident, PGY-3 Pager #[phone] METABOLIC ATTENDING NOTE I personally interviewed the patient, performed the pertinent parts of the physical examina tion and personally formulated the plan with Dr. Ascencio. I agree with her documen tation and have documented any additions or exceptions. MARCELLUS LYLE MD documented in this enc ounter Plan of Treatment +--------+ + + + + | Date | Type | Specialty | Care Team | Description | +--------+ + + + + | 06/05/ | Procedure | Surgery | | | | 2021 | Pass | | | | +--------+ + + + + documented as of this encounter Results COBY MUNIZ (11/04/2017 3:50 PM PST) + + + + + + | Component | Value | Ref Range | Performed | Pathologist | | | | | At | Signature | + + + + + + | COLOR(UR) | Yellow | | [facility] | | | | | | LABORATORY | | | | | | SERVICES, | | | | | | CORE | | + + + + + + | APPEARANCE | Mod. Cloudy | | [facility] | | | | | | LABORATORY | | | | | | SERVICES, | | | | | | CORE | | + + + + + + | GLUCOSE(UR) | Negative | Negative, 50.0 | [facility] | | | | | mg/dL | LABORATORY | | | | | | SERVICES, | | | | | | CORE | | + + + + + + | PROTEIN(LAB | Negative | Negative, 30.0 | [facility] | | | ) | | mg/dL | LABORATORY | | | | | | SERVICES, | | | | | | CORE | | + + + + + + | BILIRUBIN | Negative | Negative | [facility] | | | | | | LABORATORY | | | | | | SERVICES, | | | | | | CORE | | + + + + + + | UROBILINOGE | <2.0 | <2.0 mg/dL | [facility] | | | N | | | LABORATORY | | | | | | SERVICES, | | | | | | CORE | | + + + + + + | PH(UR) | 5.0 | 5.0 - 8.0 | [facility] | | | | | | LABORATORY | | | | | | SERVICES, | | | | | | CORE | | + + + + + + | BLOOD | Negative | Negative | [facility] | | | | | | LABORATORY | | | | | | SERVICES, | | | | | | CORE | | + + + + + + | KETONES | Negative | Negative mg/dL | [facility] | | | | | | LABORATORY | | | | | | SERVICES, | | | | | | CORE | | + + + + + + | NITRITES | Negative | Negative | [facility] | | | | | | LABORATORY | | | | | | SERVICES, | | | | | | CORE | | + + + + + + | LEUKOCYTE | Negative | Negative | [facility] | | | ESTERASE | | | LABORATORY | | | | | | SERVICES, | | | | | | CORE | | + + + + + + | SPECIFIC | 1.018Comment: Specific | 1.005 - 1.030 | [facility] | | | GRAVITY | [place] performed by | | LABORATORY | | | | refractometry | | SERVICES, | | | | | | CORE | | + + + + + + + + | Specimen | + + | Urine | + + + + + + + | Performing | Address | City/State/Zipcode | Phone Number | | Organization | | | | + + + + + | [facility] | [address] | [place] [address] | | | SERVICES, CORE | [address] | | | + + + + + documented in this encounter Visit Diagnoses + + | Diagnosis | + + | 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
--- OUTSIDE RECORDS SUMMARY | ~2020-06-09 | XMS | Encounter Summary ---
Demographics + + + | Address | [address] | | | [place] [address] | + + + | Home Phone [...] Author | [facility] | + + + | Organization | [facility] | + + + | Address | Unknown | + + + | Phone | Unavailable | + + + Support + + +---------+ + | Name | Relationship | Address | Phone | + + +---------+ + | John Miguel | ECON | Unknown | | + + +---------+ + Care Team Providers + +------+ + | Care Brick Stacker Name | Role | Phone | + +------+ + | Lexx Estiven | PCP | | + +------+ + Encounter Details +--------+------+ + + + | Date | Type | Department | Care Team | Description | +--------+------+ + + + | 07/07/ | Lab | Lab Center at | | Fabry disease in | | 2017 | | [place] | | heterozygous female | | | | [facility] | | ([facility]) | | | | [address] [facility] [address] | | | | | | [place] | | | | | | [facility] | | | | | | 7th Floor [place], | | | | | | [place] [address] | | | | | | [phone] | | | +--------+------+ + + + [...] | + +--------+ + + + | ALBUMIN URINE, | Routin | 07/07/2018 | Fabry disease in | Results for this | | RANDOM | e | 12:39 PM | heterozygous female | procedure are in the | | | | PDT | ([facility]) | results section. | + +--------+ + + + | LAB OTHER | Routin | 07/07/2018 | Fabry disease in | Results for this | | | e | 12:39 PM | heterozygous female | procedure are in the | | | | PDT | ([facility]) | results section. | + +--------+ + + + | LAB OTHER | Routin | 07/07/2018 | Fabry disease in | Results for this | | | e | 12:39 PM | heterozygous female | procedure are in the | | | | PDT | ([facility]) | results section. | + +--------+ + + + | LAB OTHER | Routin | 07/07/2018 | Fabry disease in | Results for this | | | e | 12:39 PM | heterozygous female | procedure are in the | | | | PDT | ([facility]) | results section. | + +--------+ + + + documented in this encounter Results ALBUMIN URINE, RANDOM (07/07/2018 12:39 PM PDT) + +---------+ + + + | Component | Value | Ref Range | Performed | Pathologist | | | | | At | Signature | + +---------+ + + + | ALBUMIN | 152 (H) | <24 mg/L | [facility] | | | URINE, | | | LABORATORY | | | RANDOM | | | SERVICES, | | | | | | CORE | | + +---------+ + + + | CREATININE | 88.50 | mg/dL | [facility] | | | CONC UR | | | LABORATORY | | | | | | SERVICES, | | | | | | CORE | | + +---------+ + + + | ALBUMIN/CRE | 172 (H) | <=30 mg/gm | [facility] | | | ATININE | | | LABORATORY | | | RATIO, URI* | | | SERVICES, | | | | | | CORE | | + +---------+ + + + + + | Specimen | + + | Urine - Urine | | (substance) | + + + + + + + | Performing | Address | City/State/Zipcode | Phone Number | | Organization | | | | + + + + + | [facility] | [address] | [place] [address] | | | SERVICES, CORE | [address] | | | + + + + + LAB OTHER (07/07/2018 12:39 PM PDT) + + + + + + | Component | Value | Ref Range | Performed | Pathologist | | | | | At | Signature | + + + + + + | MISC REF | Fabrazyme, Urine | | [facility] | | | TEST NAME | | | LABORATORY | | | | | | SERVICES, | | | | | | CORE | | + + + + + + | MISC REF | | | [facility] | | | TEST RESULT | | | REFERENCE | | | | | | LAB | | + + + + + + | NORMAL | | | [facility] | | | RANGE | | | REFERENCE | | | | | | LAB | | + + + + + + | REFERRAL | | | [facility] | | | LAB NAME | | | REFERENCE | | | | | | LAB | | + + + + + + + + | Specimen | + + | Urine - Urine | | (substance) | + + + + + | Narrative | Performed At | + + + | See scanned | [facility] | | report for Technical Results and further Interpretation and Comments. | REFERENCE LAB | | | | | | | + + + + + + + + | Performing | Address | City/State/Zipcode | Phone Number | | Organization | | | | + + + + + | [facility] | | | | + + + + + | [facility] | [address] | [place] [address] | | | SERVICES, CORE | [address] | | | + + + + + | [facility] | see below | | | + + + + + LAB OTHER (07/07/2018 12:39 PM PDT) + + + + + + | Component | Value | Ref Range | Performed | Pathologist | | | | | At | Signature | + + + + + + | MISC REF | Fabrazyme IgG | | [facility] | | | TEST NAME | Antibodies/ Serum | | LABORATORY | | | | | | SERVICES, | | | | | | CORE | | + + + + + + | MISC REF | | | [facility] | | | TEST RESULT | | | REFERENCE | | | | | | LAB | | + + + + + + | NORMAL | | | [facility] | | | RANGE | | | REFERENCE | | | | | | LAB | | + + + + + + | REFERRAL | Test Performed: [employer] | | [facility] | | | LAB NAME | [facility] | | REFERENCE | | | | [facility] | | LAB | | | | [place] | | | | | | [facility],[place], [place] | | | | | | [address] | | | | + + + + + + + + | Specimen | + + | Blood - Blood | | (substance) | + + + + + | Narrative | Performed At | + + + | See scanned | [facility] | | report for Technical Results and further Interpretation and Comments. | REFERENCE LAB | | | | | | | + + + + + + + + | Performing | Address | City/State/Zipcode | Phone Number | | Organization | | | | + + + + + | [facility] | | | | + + + + + | [facility] | [address] | [place] [address] | | | SERVICES, CORE | [address] | | | + + + + + | [facility] | see below | | | + + + + + LAB OTHER (07/07/2018 12:39 PM PDT) + + + + + + | Component | Value | Ref Range | Performed | Pathologist | | | | | At | Signature | + + + + + + | MISC REF | GL-3 & LYSO GL-3/ Plasma | | [facility] | | | TEST NAME | | | LABORATORY | | | | | | SERVICES, | | | | | | CORE | | + + + + + + | MISC REF | Comment: This is a | | [facility] | | | TEST RESULT | corrected result. | | REFERENCE | | | | Previous result was | | LAB | | | | Below quantitation | | | | | | limit. on 09/03/2018 at | | | | | | 1459 PST. | | | | + + + + + + | NORMAL | Comment: This is a | | [facility] | | | RANGE | corrected result. | | REFERENCE | | | | Previous result was <5.0 | | LAB | | | | ng/mL (n = 100) on | | | | | | 09/03/2018 at 1459 PST. | | | | + + + + + + | REFERRAL | Testing Performed | | [facility] | | | LAB NAME | By:[facility] | | REFERENCE | | | | [address], | | LAB | | | | [place] [address] | | | | + + + + + + + + | Specimen | + + | Blood - Blood | | (substance) | + + + + + | Narrative | Performed At | + + + | See scanned | [facility] | | report for Technical Results and further Interpretation and Comments. 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
--- OUTSIDE RECORDS SUMMARY | ~2020-06-09 | XMS | Encounter Summary ---
Demographics + + + | Address | [address] | | | [place] [address] | + + + | Home Phone [...] Author + + + | Author | [facility] | + + + | Organization | [facility] | + + + | Address | Unknown | + + + | Phone | Unavailable | + + + Support + + +---------+ + | Name | Relationship | Address | Phone | + + +---------+ + | John Miguel | ECON | Unknown | | + + +---------+ + Care Team Providers + +------+ + | Care Senior Data Analyst Name | Role | Phone | + +------+ + | Lexx Estiven | PCP | | + +------+ + Encounter Details +--------+ + + + + | Date | Type | Department | Care Team | Description | +--------+ + + + + | 01/11/ | Telephone | [facility] at [facility] 7th | Shaina Barrett | | | 2013 | | Floor [address] | | | | | St Mailcode: [facility] | | | | | | [facility] [place], [place] | | | | | | [address] | | | | | | [phone] | | | +--------+ + + + [...]
--- OUTSIDE RECORDS SUMMARY | ~2020-06-09 | XMS | Encounter Summary ---
Demographics + + + | Address | [address] | | | [place] [address] | + + + | Home Phone | | + + + | Preferred Language | Unknown | + + + | Marital Status | Single | + + + | Voodoo Affiliation | Unknown | + + + | Race | White | + + + | Ethnic Group | Not or | + + + Author + + + | Author | [facility] | + + + | Organization | [facility] | + + + | Address | Unknown | + + + | Phone | Unavailable | + + + Support + + +---------+ + | Name | Relationship | Address | Phone | + + +---------+ + | John Miguel | ECON | Unknown | | + + +---------+ + Care Team Providers + +------+ + | Care Door Attendant Name | Role | Phone | + +------+ + | Christina Rain MD | PCP | | + +------+ + Encounter Details +--------+ + + + + | Date | Type | Department | Care Team | Description | +--------+ + + + + | 08/28/ | Telephone | [facility] at [facility] 7th | Fawad Muhammad, | | | 2009 | | Floor [address] | | | | | St Mailcode: [facility] | | | | | | [facility] [place], [place] | | | | | | [address] | | | | | | [phone] | | | +--------+ + + + [...] this encounter Miscellaneous Notes Telephone Encounter - Xenia Herzog - 08/29/2010 3:11 PM PSTLeft another message for deep ent- due to shortage unable to get the medication. Call me if questions. Electronically sig corinne by Xenia Herzog at 08/29/2010 3:11 PM PSTTelephone Encounter - Xenia Herzog - 2009 10:21 AM PSTLeft msg for her to call meElectronically signed by Xenia Herzog at 2009 10:21 AM PSTTelephone Encounter - Xenia Herzog - 08/28/2010 4:18 PM PSTLoss of [facility]- more protein in urine. They are checking it twice a month, doc is concerned, christensen ve her on other medication, wasn't healing properly.. Can't remember name. Took her off to see if it helped the kidney's but it didn't. The PCP said they received the note from Taurus rice at the end of summer but hasn't heard from him since. She would like to know what happened to the restarting of Fabryzyme. I explained about the shortage but she said she was told Dr. Muhammad just had to fill out the correct paperwork si nce she was having such problems and she would get at least some doses. I told her I would have to check into it. documented in this encount er Plan of Treatment +--------+ + + + [...]
--- OUTSIDE RECORDS SUMMARY | ~2020-06-09 | XMS | Encounter Summary ---
Demographics + + + | Address | [address] | | | [place] [address] | + + + | Home Phone | | + + + | Preferred Language | Unknown | + + + | Marital Status | Single | + + + | Religion Affiliation | Unknown | + + + | Race | White | + + + | Ethnic Group | Not or | + + + Author + + + | Author | [facility] | + + + | Organization | [facility] | + + + | Address | Unknown | + + + | Phone | Unavailable | + + + Support + + +---------+ + | Name | Relationship | Address | Phone | + + +---------+ + | John Miguel | ECON | Unknown | | + + +---------+ + Care Team Providers + +------+ + | Care Director Of Software Development Name | Role | Phone | + +------+ + | Lexx Estiven DO | PCP | | + +------+ + Reason for Visit + + + | Reason | Comments | + + + | Prior Authorization | approved for [employer] [id number] until 09/14/2018 | | Request - Medication | | + + + Encounter Details +--------+ + + + + | Date | Type | Department | Care Team | Description | +--------+ + + + + | 10/09/ | Documentati | [facility] at [facility] 7th | Marcellus Rodriguez MD | Prior Authorization | | 2018 | on | Floor [address] | [address] [facility] | Request - Medication | | | | St Mailcode: [facility] | [facility] | (approved for | | | | [facility], [place] | [place], [place] | [employer] [id number] | | | | [address] | [address] | until 09/14/2018 ) | | | | [phone] | [phone] | | | | | | | [...]
--- OUTSIDE RECORDS SUMMARY | ~2020-06-09 | XMS | Encounter Summary ---
Demographics + + + | Address | [address] | | | [place] [address] | + + + | Home Phone | | + + + | Preferred Language | Unknown | + + + | Marital Status | Single | + + + | Yazidi Affiliation | Unknown | + + + [...] Providers + +------+ + | Care Senior Network Security Engineer Name | Role | Phone | + +------+ + | Lexx Estiven | PCP | | + +------+ + Encounter Details +--------+ + + + + | Date | Type | Department | Care Team | Description | +--------+ + + + + | 09/17/ | Document-Sc | UNKNOWN DEPARTMENT | Other, Faculty | | | 2017 | anned | [address] [facility] | [phone] | | | | | [address] | | | | | | [place], [place] | | | | | | [address] | | | +--------+ + + + [...] | + +--------+ + + + | ORDERS OTHER | | 09/17/2016 | | Results for this | | | | 12:00 AM | | procedure are in the | | | | PST | | results section. | + +--------+ + + + documented in this encounter Results ORDERS OTHER (09/17/2016 12:00 AM PST) + + + | Narrative | Performed At | + + + | | | + + + documented in this encounter Visit Diagnoses Not on filedocumented in this encounter"
--- OUTSIDE RECORDS SUMMARY | ~2020-06-09 | XMS | Encounter Summary ---
Demographics + + + | Address | [address] | | | [place] [address] | + + + | Home Phone [...] Author + + + | Author | [facility] | + + + | Organization | [facility] | + + + | Address | Unknown | + + + | Phone | Unavailable | + + + Support + + +---------+ + | Name | Relationship | Address | Phone | + + +---------+ + | John Miguel | ECON | Unknown | | + + +---------+ + Care Team Providers + +------+ + | Care Tumbler Tender Name | Role | Phone | + +------+ + | Gavinolizandro Estiven | PCP | | + +------+ + Encounter Details +--------+ + + + + | Date | Type | Department | Care Team | Description | +--------+ + + + + | 04/09/ | MyChart | [facility] 7th | Deidre Nguyen MD | JOSE ANTONIO group | | 2018 | Encounter | Floor [address] | [address] | | | | | St Mailcode: [facility] | [address] [place], | | | | | [facility] [place], [place] | [place] [address] | | | | | [address] | [phone] | | | | | [phone] | | | +--------+ + + + [...]
--- OUTSIDE RECORDS SUMMARY | ~2020-06-09 | XMS | Encounter Summary ---
Demographics + + + | Address | [address] | | | [place] [address] | + + + | Home Phone [...] Author + + + | Author | [facility] | + + + | Organization | [facility] | + + + | Address | Unknown | + + + | Phone | Unavailable | + + + Support + + +---------+ + | Name | Relationship | Address | Phone | + + +---------+ + | John Miguel | ECON | Unknown | | + + +---------+ + Care Team Providers + +------+ + | Care Yard Pilot Name | Role | Phone | + +------+ + | Fausto Sinclair | PCP | | + +------+ + Encounter Details +--------+ + + + + | Date | Type | Department | Care Team | Description | +--------+ + + + + | 03/25/ | Documentati | [facility] at [facility] 7th | Deana Jimenez MD | | | 2012 | on | Floor [address] | [address] | | | | | St Mailcode: [facility] | [address] [place], | | | | | [facility] [place], [place] | [place] [address] | | | | | [address] | [phone] | | | | | [phone] | | | +--------+ + + + [...] | + +--------+ + + + | [facility] | Routin | 2013 | | Results for this | | EXTERNAL RESULT | e | | | procedure are in the | | PANEL | | | | results section. | + +--------+ + + + | LAB OTHER | Routin | 2013 | | Results for this | | | e | | | procedure are in the | | | | | | results section. | + +--------+ + + + documented in this encounter Results LAB OTHER (2013) + + + + + + | Component | Value | Ref Range | Performed | Pathologist | | | | | At | Signature | + + + + + + | [facility] | negativeComment: | | NON [facility] | | | PHOS, OTHER | [facility]ra[facility] Antibody | | LAB | | | CALC | | | | | + + + + + + + + | Specimen | + + | | + + + +---------+ + + | Performing | Address | City/State/Zipcode | Phone Number | | Organization | | | | + +---------+ + + | NON [facility] | | | | + +---------+ + + [facility] EXTERNAL RESULT PANEL (2013) + + | Specimen | + + | | + + + + + | Narrative | Performed At | + + + | Error in results | NON [facility] | + + + + +---------+ + + | Performing | Address | City/State/Zipcode | Phone Number | | Organization | | | | + +---------+ + + | NON [facility] | | | | + +---------+ + + documented in this encounter Visit Diagnoses Not on filedocumented in this encounter"
--- OUTSIDE RECORDS SUMMARY | ~2020-06-09 | XMS | Encounter Summary ---
Demographics + + + | Address | [address] | | | [place] [address] | + + + | Home Phone [...] Team Providers + +------+ + | Care Asset Protection Lead Name | Role | Phone | + +------+ + PCP | Unavailable | + +------+ + Encounter Details +--------+ + + + + | Date | Type | Department | Care Team | Description | +--------+ + + + + | 09/12/ | Letter-De Leon | [facility] | Letter, [facility] | Letters | | 2003 | scribed | | | | +--------+ [...] as of this encounter Progress Notes Interface, Senior Qa Tester In - 04/14/2005 9:07 AM [facility] [id number] IVA ZHU [facility] [address], [place], [place] [address] September 10, 2004 RE: Jarvis Miguel MR# [id number] Mckeon: Fabiana Christopher told me she is . She has not started on enzyme replacement therapy, and should not start until after delivery. As for other complications of Fabry disease and pregancy, I known of none specifically. She is at risk of having an affected child, but treatment is now available for Fabry disease. She may be taking medications for pain, etc that may be contraindicated in . I am not an expert in that area, and I do not prescribe those medications for her. I do know that the typical medications that work for pain in this condition are Neurontin, Dilantin, and Tegretol. Dilantin and Tegretol are known teratogens and should be avoided. I don't know about Neurontin. Please feel free to call me anytime to discuss this patient. I am enclosing an article about Fabry disease. Sincerely, Fawad Muhammad MD Lpn Instructor Department of Pediatrics Head--Division of Metabolism [address] [address] PH# FAX# email:[email or web address] Enc: Article Cc: OLEG Youngblood/sm P documented i n this encounter Plan of Treatment +--------+ + [...]
--- OUTSIDE RECORDS SUMMARY | ~2020-06-09 | XMS | Encounter Summary ---
Demographics + + + | Address | [address] | | | [place] [address] | + + + | Home Phone | | + + + | Preferred Language | Unknown | + + + | Marital Status | Single | + + + | Restoration Affiliation | Unknown | + + + | Race | White | + + + | Ethnic Group | Not or | + + + Author + + + | Author | [facility] | + + + | Organization | [facility] | + + + | Address | Unknown | + + + | Phone | Unavailable | + + + Support + + +---------+ + | Name | Relationship | Address | Phone | + + +---------+ + | John Miguel | ECON | Unknown | | + + +---------+ + Care Team Providers + +------+ + | Care Shellfish Sorter Name | Role | Phone | + +------+ + | Estiven Hallman | PCP | | + +------+ + Reason for Visit + +--------+ + | Reason | Onset | Comments | | | Date | | + +--------+ + | Medication | 03/06/ | needs new orders | | management | 2018 | | + +--------+ + Encounter Details +--------+ + + + + | Date | Type | Department | Care Team | Description | +--------+ + + + + | 03/06/ | Telephone | [facility] 7th | Deidre Nguyen MD | Medication | | 2018 | | Floor [address] | [address] | management (needs | | | | St Mailcode: [facility] | [address] [place], | new orders ) | | | | [facility], [place] | [place] [address] | | | | | [address] | [phone] | | | | | [phone] | | | +--------+ + + + [...] Notes Telephone Encounter - Xenia Herzog - 03/10/2018 9:28 AM PDTJayme switching back to infus ions at [facility] PCP office has old orders from 2016. Needs new orders they can 'co- sign'. Deidre Nguyen updated orders. Faxed to [id number]. Electronically signed by Xenia Herzog at 02/14 9:29 AM PDTdocumented in this encounter Plan of Treatment +--------+ [...]
--- OUTSIDE RECORDS SUMMARY | ~2020-06-09 | XMS | Encounter Summary ---
Demographics + + + | Address | [address] | | | [place] [address] | + + + | Home Phone | | + + + | Preferred Language | Unknown | + + + | Marital Status | Single | + + + | Confucianist Affiliation | Unknown | + + + | Race | White | + + + | Ethnic Group | Not or | + + + Author + + + | Author | [facility] | + + + | Organization | [facility] | + + + | Address | Unknown | + + + | Phone | Unavailable | + + + Support + + +---------+ + | Name | Relationship | Address | Phone | + + +---------+ + | John Miguel | ECON | Unknown | | + + +---------+ + Care Team Providers + +------+ + | Care Seam Taper Machine Name | Role | Phone | + +------+ + | Florian Martinez I | PCP | Unavailable | + +------+ + Reason for Visit +--------+--------+ + | Reason | Onset | Comments | | | Date | | +--------+--------+ + | Other | 02/24/ | Pt has questions regarding Fabrazyme and | | | 2007 | | +--------+--------+ + Encounter Details +--------+ + + + + | Date | Type | Department | Care Team | Description | +--------+ + + + + | 02/24/ | Telephone | [facility] 7th | Fawad Muhammad, | Other (Pt has | | 2006 | | Floor [address] | MD | questions regarding | | | | St Mailcode: [facility] | | [employer] and | | | | [facility] [place], [place] | | ) | | | | [address] | | | | | | [phone] | | | +--------+ + + + [...] this encounter Miscellaneous Notes Telephone Encounter - Shy Rome Rn - 03/30/2007 10:23 AM PDTReceived word from Lexus Martell at [employer] that she attended an O.B. appointment with Jarvis Miguel to answer question s regarding ERT infusions . Jarvis has moved and we do not have the correct contact informati on for her. I was given cell number by Lexus and left messages for Jarvis. I l eft our contact information for Jarvis by message and reminded her to call. I left our contac t information for Dr. Woodson and Dr. Rodriguez. Our team is available to offer support and an swer questions during Jarvis's . The infusion Center Reports that Jarvis's last ERT infusion was 03/06/07 and they have left messages for Jarvis to call. She has missed 1 infusio n. The following numbers are correct: Dr. Monreal [facility] Shy Rome R.N. elep ronan Encounter - Fawad Muhammad - 03/04/2007 4:24 PM PDTI spoke with Shy Rome RN and asked her to follow-up both to find out what is the recommendation from the drug company, an d to follow-up with the patient. elephone Encounter - Fatuma Rayo - 02/24/2007 10:34 AM PDTI called Jarvis Miguel to schedule a RTC visit, at which point she informed me that she is with twins. Sh e asked what the physician's advice is regarding continuing her Fabrazyme treatment during p regnancy. Jarvis wishes to continue, however she would also like to know what the potential risks are. documented in this encounter Plan of Treatment +--------+ [...]
--- OUTSIDE RECORDS SUMMARY | ~2020-06-09 | XMS | Encounter Summary ---
Demographics + + + | Address | [address] | | | [place] [address] | + + + | Home Phone | | + + + | Preferred Language | Unknown | + + + | Marital Status | Single | + + + | Mormonism Affiliation | Unknown | + + + [...] Team Providers + +------+ + | Care Delinquency Counselor Name | Role | Phone | + +------+ + | Katie Dominique MD | PCP | | + +------+ + Reason for Visit + +--------+ + | Reason | Onset | Comments | | | Date | | + +--------+ + | Evaluation AND/OR | 03/21/ | Possible cholecystectomy | | management - new | 2007 | | | patient | | | + +--------+ + Encounter Details +--------+ + + + + | Date | Type | Department | Care Team | Description | +--------+ + + + + | 03/21/ | Telephone | [facility] in [place] | Deana Jimenez MD | Evaluation AND/OR | | 2007 | | [address] [facility] | [address] | management - new | | | | [place] | [address] [place], | patient (Possible | | | | [address] | [place] [address] | cholecystectomy) | | | | [phone] | [phone] | | | | | | | [...] this encounter Miscellaneous Notes Telephone Encounter - Deana Jimenez - 03/21/2008 5:00 PM ANISHADrArmen Mcelroy called to state that he is planning to schedule Ms. Miguel for a cholecystectomy. She has frequent postprandial RUQ abdominal pain and vomiting. Abdominal ultrasound was normal but a HIDA scan showed etienne yed emptying. CCK administration reportedly induced symptoms similar to those that she has karl rivera complaining about. I agreed that the only way to know whether her pain is related to Fabry or gall bladder is to do the surgery and see how she does. He will let us know the outcome. Deana Jimenez MD Service Vehicle Operator of Molecular and Medical Genetics documented in this encounte r Plan of Treatment +--------+ + + + [...]
--- OUTSIDE RECORDS SUMMARY | ~2020-06-09 | XMS | Encounter Summary ---
Demographics + + + | Address | [address] | | | [place] [address] | + + + | Home Phone [...] Team Providers + +------+ + | Care Medical Sales Representative Name | Role | Phone | [...] [address] | | | | | | [place] | | | | | | [address] | | | +--------+ + + + [...]
--- OUTSIDE RECORDS SUMMARY | ~2020-06-09 | XMS | Encounter Summary ---
Demographics + + + | Address | [address] | | | [place] [address] | + + + | Home Phone [...] + + + | Author | [facility] | + + + | Organization | [facility] | + + + | Address | Unknown | + + + | Phone | Unavailable | + + + Support + + +---------+ + | Name | Relationship | Address | Phone | + + +---------+ + | John Miguel | ECON | Unknown | | + + +---------+ + Care Team Providers + +------+ + | Care Incendiaries Supervisor Name | Role | Phone | + +------+ + | Mikki Barajas MD | PCP | | + +------+ + Encounter Details +--------+ + + + + | Date | Type | Department | Care Team | Description | +--------+ + + + + | 05/26/ | MyChart | Digestive Health | | pre-op information | | 2020 | Encounter | [place] at [facility] [address] | | | | | | [address] [facility] | | | | | | for Health and | | | | | | Healing, [address] | | | | | | [place], [place] | | | | | | [address] | | | | | | [phone] | | | +--------+ + + + [...] + + + + + + | COVID-19 Exposure | Response | Date Recorded | + + + + | In the last month, have you been in contact | No / Unsure | 05/15/2020 8:15 AM | | with someone who was confirmed or | | PDT | | suspected to have Coronavirus / COVID-19? | | | + + + + documented as of [...]
--- OUTSIDE RECORDS SUMMARY | ~2020-06-09 | XMS | Encounter Summary ---
Demographics + + + | Address | [address] | | | [place] [address] | + + + | Home Phone | | + + + | Preferred Language | Unknown | + + + | Marital Status | Single | + + + | Church Affiliation | Unknown | + + + | Race | White | + + + | Ethnic Group | Not or | + + + Author + + + | Author | [facility] | + + + | Organization | [facility] | + + + | Address | Unknown | + + + | Phone | Unavailable | + + + Support + + +---------+ + | Name | Relationship | Address | Phone | + + +---------+ + | John Miguel | ECON | Unknown | | + + +---------+ + Care Team Providers + +------+ + | Care Architecture Department Chair Name | Role | Phone | + +------+ + | Lexx Estiven | PCP | | + +------+ + Reason for Visit + + + | Reason | Comments | + + + | Bariatric Nutrition | | + + + Encounter Details +--------+---------+ + + + | Date | Type | Department | Care Team | Description | +--------+---------+ + + + | 06/04/ | Office | Digestive Health | | Morbid obesity due | | 2019 | Visit | Center at [facility] [address] | | to excess calories | | | | [address] [facility] | | ([facility]) (Primary Dx) | | | | for Health and | | | | | | Healing, [facility] | | | | | | [place], [place] | | | | | | [address] | | | | | | [phone] | | | +--------+---------+ + + + [...] + + + | Blood Pressure | - | - | | + + + + + | Pulse | - | - | | + [...] + + + + | Weight | 147 kg (324 lb) | 06/04/2019 3:37 PM | | | | | PDT | | + + + + + | Height | - | - | | + + + + + | Body Mass Index | 57.39 | 01/12/2019 9:43 AM | | | | | PDT | | + + + + + documented in this encounter Progress Notes Kathe Starks, RD - 06/04/2019 2:00 PM PDTFormatting of this note might be different fr om the original. Referring Provider: Estiven Hallman DO [facility], Pre-Bariatric Surgery Class Pre-Surgery Class #1 prior to having Nessa-En-Y gastric bypass surgery or Sleeve Gastrectomy . Documented Time of Class: 60 minutes [id number] with patient OBJECTIVE: Height: Ht Readings from Last 1 Encounters: 01/12/19 1.6 m (5' 3") Ht Readings from Last 1 Encounters: 01/12/19 1.6 m (5' 3") Wt Readings from Last 2 Encounters: 06/04/19 147 kg (324 lb) 01/18/19 149 kg (328 lb 6.4 oz) BMI: Body mass index is 57.39 kg/m. Teaching Methods: Verbal presentation with Bariatric notebook and additional written materi als. Class content included: 1. Review of johnson points. -Eat within one hour of waking, then every 3 to 4 waking hours (usually 3 meals and 2-3 sna cks daily)Include protein at meals (2-3 ounces) and at snacks (~1 ounce). -Goal is 60-80grams of protein/day -At least 64 ounces of fluids throughout the day (no calories, caffeine, or carbonation) -Separate fluids from meals nothing to drink 30 minutes before, during, and [address] eating -Practice mindful eating eat slowly (30 minutes for meals) without distractions such as T V, computer, phone -Choose foods with < 14 grams of sugar and < 5 grams of fat per serving -30-60 minutes of physical activity most days -Taking vitamins and minerals every day 2. Mindful eating, emotional eating 3. Pre-surgery diet (plate method, label reading, keeping food logs) Assessment: Pt remained attentive throughout the class and/or participated by asking questi ons or sharing information. Kathe Starks, MS, RDN, CSOWM, LD, CDE [facility] Bariatrics [phone] documented in this e ncounter Plan of Treatment +--------+ + + + + | Date | Type | Specialty | Care Team | Description | +--------+ + + + + | 06/05/ | Procedure | Surgery | | | | 2021 | Pass | | | | +--------+ + + + + documented as of this encounter Visit Diagnoses + + | Diagnosis | + + | Morbid obesity due to excess calories (HCC) - Primary | + + documented in this encounter
--- OUTSIDE RECORDS SUMMARY | ~2020-06-09 | XMS | Encounter Summary ---
Demographics + + + | Address | [address] | | | [place] [address] | + + + | Home Phone [...] Team Providers + +------+ + | Care Transitional Care Liaison Name | Role | Phone | + +------+ + | Mikki Barajas MD | PCP | | + +------+ + Encounter Details +--------+ + + + + | Date | Type | Department | Care Team | Description | +--------+ + + + + | 10/20/ | Document-Sc | Health Information | Other, Faculty | | | 2018 | anned | Services [address] | [phone] | | | | | [address] | | | | | | Mailcode: OP17A | | | | | | [facility] | | | | | | [place], [place] | | | | | | [address] | | | | | | [phone] | | | +--------+ + + + [...]
--- OUTSIDE RECORDS SUMMARY | ~2020-06-09 | XMS | Encounter Summary ---
Demographics + + + | Address | [address] | | | [place] [address] | + + + | Home Phone [...] Team Providers + +------+ + | Care Commercial Airplane Pilot Name | Role | Phone | + +------+ + | Estiven Hallman DO | PCP | | + +------+ + Reason for Visit + +--------+ + | Reason | Onset | Comments | | | Date | | + +--------+ + | Referral to social | 05/01/ | | | worker | 2017 | | + +--------+ + Encounter Details +--------+ + + + + | Date | Type | Department | Care Team | Description | +--------+ + + + + | 05/01/ | Telephone | SOCIAL WORK | Liliana Miguel | Referral to social | | 2017 | | AMBULATORY [address] | [address] | worker | | | | [address] | [address] [place], | | | | | Mailcode: [id number] | [place] [address] | | | | | [place], [place] | | | | | | [address] | | | | | | [phone] | | | +--------+ + + + [...] this encounter Miscellaneous Notes Telephone Encounter - Liliana Miguel - 05/02/2017 2:48 PM PDTTransportation assistance sherry taylor [facility]. Patient received a call from the [employer] her medicaid transportation brokerage on 05/01/2017 and was told they were cancelling her medical transportation to all of her bariatric appointments. Tati lopez lives in [place], [place] and does not have her own transportation to [facility]. Called tati lopez's managed care plan [facility]. They confirmed patient is receiving a co kir[place] Medicaid service and there should not be barriers to transportation. They do not have a referral/authorization on file as patient's primary insurance is Medicare. Called the [employer] [phone] and confirmed they had cancelled the patient's transportatio n to [facility] for bariatric care in error. Patient should be able to schedule medical transporta tion for 05/12/2017. Called patient and informed her she is able to contact the [employer] an d schedule transportation. Patient voiced appreciation of the assistance. Provided the patie nt with my contact information. No additional social work interventions anticipated at this time. documented in this encounte r Plan of [...]
--- OUTSIDE RECORDS SUMMARY | ~2020-06-09 | XMS | Encounter Summary ---
Demographics + + + | Address | [address] | | | [place] [address] | + + + | Home Phone | | + + + | Preferred Language | Unknown | + + + | Marital Status | Single | + + + | Episcopal Affiliation | Unknown | + + + [...] Team Providers + +------+ + | Care Rock Star Name | Role | Phone | + [...] Description | +--------+---------+ + + + | 05/12/ | Office | Digestive Health | | Morbid obesity, | | 2016 | Visit | Center at [facility] [address] | | unspecified obesity | | | | [address] | | type (HCC) (Primary | | | | for Health and | | Dx) | | | | Healing, [address] | | | | | | [place], [place] | | | | | | [address] | | | | | | [phone] | | | +--------+---------+ + + + [...] + + + + | Weight | 164.8 kg (363 lb 4.8 | 05/12/2017 4:04 PM | | | | oz) | PDT | | + + + + + | Height | - | - | | + + + + + | Body Mass Index | 65.39 | 02/03/2017 10:58 AM | | | | | PDT | | + + + + + documented in this encounter Progress Notes Venus Saldana RD, CSOWM, LD - 05/12/2017 3:00 PM PDTFormatting of this note might be diff erent from the original. Referring Provider: Estiven Hallman DO [facility], Pre-Bariatric Surgery Class Pre-Surgery Class #2 prior to having Nessa-En-Y gastric bypass surgery or Sleeve Gastrectomy . Documented Time of Class: 2:00/3:00 until 3:00/4:00 (60 minutes kszx-[id number] with patient) OBJECTIVE: Height: Ht Readings from Last 1 Encounters: 02/03/17 1.588 m (5' 2.5") Ht Readings from Last 1 Encounters: 02/03/17 1.588 m (5' 2.5") Wt Readings from Last 2 Encounters: 05/12/17 164.8 kg (363 lb 4.8 oz) 04/04/17 166.2 kg (366 lb 4.8 oz) BMI: Body mass index is 65.39 kg/(m^2). Teaching Methods: PowerPoint and verbal presentation with additional written materials. Class content included: 1. Review of johnson [...] -Taking vitamins and minerals every day 2. Fluids 3. Exercise 4. Vitamins and Minerals & lab work. 5. Liver Reduction Diet 6. Post surgical diet progression Assessment: Pt remained attentive throughout the class and/or participated by asking questi ons or sharing information. Yes Venus Saldana RD, CNSC, LD [facility] Bariatrics [phone] documented i n this encounter Plan of [...] type (HCC) - Primary | + + documented in this encounter
--- OUTSIDE RECORDS SUMMARY | ~2020-06-09 | XMS | Encounter Summary ---
Demographics + + + | Address | [address] | | | [place] [address] | + + + | Home Phone [...] + + + | Author | [facility] | + + + | Organization | [facility] | + + + | Address | Unknown | + + + | Phone | Unavailable | + + + Support + + +---------+ + | Name | Relationship | Address | Phone | + + +---------+ + | John Miguel | ECON | Unknown | | + + +---------+ + Care Team Providers + +------+ + | Care Electric Freight Car Operator Name | Role | Phone | + +------+ + | LexxEstiven | PCP | | + +------+ + Reason for Visit + +--------+ + | Reason | Onset | Comments | | | Date | | + +--------+ + | Medication | 08/05/ | Fabryzyme | | management | 2013 | | + +--------+ + Encounter Details +--------+ + + + + | Date | Type | Department | Care Team | Description | +--------+ + + + + | 08/05/ | Telephone | [facility] at [facility] 7th | Shaina Barrett | Medication | | 2013 | | Floor [address] | management | | | | St Mailcode: [facility] | | (Shadimiguel) | | | | [place], [place] | | | | | | [address] | | | | | | [phone] | | | +--------+ + + + [...] Notes Telephone Encounter - Xenia Herzog - 08/05/2014 9:49 AM PSTPatient called; arrived for h er infusion and needs a prior auth #; I told her I do not have one. I can see documentation by Shaina that 26 doses were approved (call dated 06/15) for the 140mg. She stated she needs a number. I told her I did not have a number nor do I see documentation of a number. I emilio d her I called her ins co and got the message they were in a staff meeting. I talked to Lyndsey dc. She does not have that in writing, just a verbal about the approval. Pt stated she is getting her infusion today because they accidentally mixed up the medicati on already. Jarvis will be there for 3 hrs so will try to get ahold of the ins co and get th e PA number. documented in this encount er Plan of [...]
--- OUTSIDE RECORDS SUMMARY | ~2020-06-09 | XMS | Encounter Summary ---
Demographics + + + | Address | [address] | | | [place] [address] | + + + | Home Phone [...] Team Providers + +------+ + | Care Combustion Engineer Name | Role | Phone | [...] [address] | | | | | | [place], [place] | | | | | | [address] | | | +--------+ + + + [...] DEPARTMENT OF | [address] | [place] [address] | | | PATHOLOGY | [address] [...] | Anticardiolipin GMA Interpretive Data for | [facility] | | Anticardiolipin Antibodies IgG, IgM Negative: [...] | + + + + + | [facility] | [address] | [place] [address] | | | PATHOLOGY | [address] | | | + + + + + ANTI-B2 GLYCOPROTEIN 1 GMA, TANNER SPECMN (01/11/2010 12:00 PM PDT) + +--------+ [...] | [facility] | | obtained with the [employer] QUANTA Lite B2GP1 IgGMA CELIA. B2GP1 | DEPARTMENT OF | | IgGMA values obtained with different cushion maker's assay methods | PATHOLOGY | | may [...] | + + + + + | [facility] | [address] | [place] [address] | | | PATHOLOGY | [address] | | | + + + + + documented in this encounter Visit Diagnoses Not on filedocumented in this encounter"
--- OUTSIDE RECORDS SUMMARY | ~2020-06-09 | XMS | Encounter Summary ---
Demographics + + + | Address | [address] | | | [place] [address] | + + + | Home Phone | | + + + | Preferred Language | Unknown | + + + | Marital Status | Single | + + + | Rastafari Affiliation | Unknown | + + + [...] Team Providers + +------+ + | Care Miller Head Name | Role | Phone | + +------+ + | Gavinolizandro Estiven | PCP | | + +------+ + Reason for Visit + + + | Reason | Comments | + + + | Prior Authorization | Approved until 09/14/17- [employer]ice | | Request - Medication | | + + + Encounter Details +--------+ + + + + | Date | Type | Department | Care Team | Description | +--------+ + + + + | 01/10/ | Documentati | [facility] 7th | Marcellus Rodriguez MD | Prior Authorization | | 2017 | on | Floor [address] | [address] [facility] | Request - Medication | | | | St Mailcode: [facility] | [facility] | (Approved until | | | | [facility], [place] | [place], [place] | 09/14/17- [employer]) | | | | [address] | [address] | | | | | [phone] | [phone] | | | | | | | [...]
--- OUTSIDE RECORDS SUMMARY | ~2020-06-09 | XMS | Encounter Summary ---
Demographics + + + | Address | [address] | | | [place] [address] | + + + | Home Phone [...] Team Providers + +------+ + | Care Calculating Machine Mechanic Name | Role | Phone | + +------+ + | Lexx Estiven | PCP | | + +------+ + Encounter Details +--------+ + + + + | Date | Type | Department | Care Team | Description | +--------+ + + + + | 07/14/ | MyChart | Digestive Health | | Bariatric online | | 2018 | Encounter | Center at [facility] [address] | | support group | | | | [address] | | | | | | for Health and | | | | | | Healing, [address] | | | | | | [place], [place] | | | | | | [address] | | | | | | [phone] | | | +--------+ + + + [...]
--- OUTSIDE RECORDS SUMMARY | ~2020-06-09 | XMS | Encounter Summary ---
Demographics + + + | Address | [address] | | | [place] [address] | + + + | Home Phone [...] Team Providers + +------+ + | Care Educational Manager Name | Role | Phone | + +------+ + | Katie Dominique MD | PCP | | + +------+ + Reason for Visit + +--------+ + | Reason | Onset | Comments | | | Date | | + +--------+ + | | 10/12/ | | | | 2009 | | + +--------+ + Encounter Details +--------+ + + + + | Date | Type | Department | Care Team | Description | +--------+ + + + + | 10/12/ | Telephone | [facility] at [facility] 7th | Shaina Barrett | | | 2009 | | Floor [address] | | | | | St Mailcode: [facility] | | | | | | [place], [place] | | | | | | [address] | | | | | | [phone] | | | +--------+ + + + [...] Telephone Encounter - Shaina Barrett FNP - 10/12/2009 1:34 PM PSTTC from Jar[place]. She is being followed by Dr. Shiraz Gregg, OB High Signal Mechanic. She would like us to share her records with him as well as give him some basic information regarding Fabry. She is 17 weeks and the plan is to do an amniocentesis in the next few weeks to ru le out some issues. He has concerns regarding where to send the specimens and what other iss ues to be watching for with her . His FAX is [phone] with a phone of [phone]. Plan is for us to FAX her most recent visit with us--which was in 2006. Share basic Fabry information and give the physician the on-call physician number to have tee BRAY to Dr. Gregg office. FAXed above information along with contact to on-call physician and articles. Gave information to GeneTinga as good reference starting point. documented in th is encounter Plan of Treatment +--------+ + + [...]
--- OUTSIDE RECORDS SUMMARY | ~2020-06-09 | XMS | Encounter Summary ---
Demographics + + + | Address | [address] | | | [place] [address] | + + + | Home Phone [...] Providers + +------+ + | Care Rock Wool Insulator Name | Role | Phone | + [...] | Pain | Diagnoses | Jesika, | Mobile Web Application Developer Psych | | | | Management | Morbid | JONAH Villavicencio | [facility] [address] | | | | | obesity, | [address] | | | | | unspecified | [address] | Center for | | | | | obesity type | [place], [place] | Health and | | | | | ([facility]ERLY [facility]) | [address] | Healing, | | | | | Procedures | Phone: | Building | | | | | CONSULT TO | [phone] | 1,15th Floor | | | | | PAIN | Fax: | [place], [place] | | | | | MANAGEMENT | [phone] | [address] | | | | | [place] | | Phone: | | | | | PSYCHIATRIC | | [phone] | | | | | DIAGNOSTIC | | Fax: | | | | | [facility] | | [phone] | | | | | [facility] [place] | | | | | | | PSYCH TSTNG | | | | | | | PSYCH/PHYS | | | +--------+--------+ + + + + Reason for Visit + + + | Reason | Comments | + + + | New patient | | | consultation | | + + + Consultation (Routine) + + + + + + + | Status | Reason | Specialty | Diagnoses / | Referred By | Referred To | | | | | Procedures | Contact | Contact | + + + + + + + | Authorized | BAR: | Surgery | | Non-[facility] | Bar | | | Scheduled | | | Epic Dept | [facility] | | | with PERFORMANCE INSTRUCTOR | | | | [facility] [address] | | | | | | | [address] | | | | | | | Center for | | | | | | | Health and | | | | | | | Healing, | | | | | | | Building [address] | | | | | | | [place], [place] | | | | | | | [address] | | | | | | | Phone: | | | | | | | | | | | | | | Fax: | | | | | | | [phone] | + + + + + + + Encounter Details [...] | [address] | [facility] [place] | type (HCC) (Primary | | | | for Health and | [address] | Dx); DM type 2 | | | | Healing, [address] | | without retinopathy | | | | [place], [place] | | ([facility]); Fabry disease | | | | [address] | | ([facility]); | | | | | | Gastroesophageal | | | | [...] | | | | | adult ([facility]) | +--------+---------+ + + + Social History [...] encounter Patient Instructions Patient Instructions Kathleen Canchola ACNP - 02/03/2017 11:00 AM PDTPlan: The following [...] to your private appointme nt with the welding inspector. These classes will be scheduled apporoximately 1 month apart to allow time for you to put the teaching into action. Please call [phone] + Labs needed: lipids, CBC, CMP, TSH, [...] Pre-op Psychological Evaluation: Your referral is at [facility], The Pain Management Office will call you in the next week to schedule. + Cardiology Consult: A cardiology provider needs to evaluate your cardiac function and le t us know if you can proceed with with bariatric surgery. If your referral is at [facility], they will call you in the next week to schedule. 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 Insurance requirements: your insurance requires : 4 months consecutive diet May : Kathleen Adan NP February: Class 1 March welding inspector PERFORMANCE INSTRUCTOR or PCP (in that order as options) [...] insurance authorization then schedule with the surgeon. JONAH Man DNP, TAPING MACHINE OPERATOR Nurse Practitioner for Bariatric Surgery [facility] | [address] | [place], [place] | [address] | documented in this encounter Progress Notes Kathleen Canchola ACNP - 02/03/2017 11:00 AM PDTFormatting of this note might be different f rom the original. BARIATRIC INITIAL VISIT Provider: JONAH Man DNP, TAPING MACHINE OPERATOR Referring Provider: Dr. Estiven Hallman Reason for [...] none Use of Redux or Phen/fen: no Zoroastrian or cultural reason you would refuse blood [...] extremity edema, hypertension, hyperlipidemia . Denies CHF, ID, ischemic heart disease, DVT/PE, or pulmonary hypertension. [...] stools. Denies history of ulcers or hernias. Kevin s history of liver disease or jaundice. [...] oldest son for adoption, he lives in [place], met him when he was 13 ( he is 14 now) , ) Gave him up for treatment as he had known macie and she couldn't support the cost of [...] improved with bariatric surgery. Records have been rocael simental from her PCM and several attempts have been made to lose weight over the past years withou t success. She qualifies for medically necessary weight loss surgery to control co-morbidit ies. Jarvis Miguel has attended the Public Informational Session [...] currently on replacement medication. Plan: Check with [employer]ION CONSULTANT SAL[employer] regarding her estrodiol at time of surgery, [...] to your private appointme nt with the welding inspector. These classes will be scheduled apporoximately 1 month apart to allow time for you to put the teaching into action. Please call [phone] + Labs needed: lipids, CBC, CMP, TSH, [...] Pre-op Psychological Evaluation: Your referral is at [facility], The Pain Management Office will call you in the next week to schedule. + A1C must be less than 8 + Cardiology Consult: A cardiology provider needs to evaluate your cardiac function and le t us know if you can proceed with with bariatric surgery. If your referral is at [facility], they will call you in the next week to schedule. 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 Insurance requirements: your insurance requires : 4 months consecutive diet May : Kathleen Adan PERFORMANCE INSTRUCTOR February: Class 1 March welding inspector PERFORMANCE INSTRUCTOR or PCP (in that order as options) [...] schedule with the surgeon. Kathleen Adan DNP, ACNP, TAPING MACHINE OPERATOR Nurse Practitioner for Bariatric Surgery [facility] | [address] | [place], [place] | [address] | documented in this encounter Plan of [...] + + + + + + | [facility] | [address] | ms | [facility] DEPT [...] DEPT OF | [address] | [place], [place] | | | CARDIOLOGY | [address] | [address] | | + + + + + [...] glycated albumin should be considered for monitoring local intermodal truck driver | LABORATORY | | glycemic control in [...] + | [facility] | [address] | [place] [address] | | | SERVICES, SPECIAL | JAMIA [...] + + + + + | [facility] | [address] | [place] [address] | | | MARAL BANKS | JAMIA [...] | + + + + + | [facility] | [address] | [place] [address] | | | SERVICES, CORE | [address] [...] [facility] | [address] | [place] [address] | | | SERVICES, CORE | JAMIA [...] | + + + + + | [facility] | [address] | [place] [address] | | | SERVICES, CORE | JAMIA [...] | + + + + + | [facility] | [address] [facility] | [place] [address] | | | SERVICES, CORE | JAMIA MOREL | | | + [...] | | | LABORATORY | | | TURKISH | | | SERVICES, | | | | | | CORE | | + +---------+ + + + | EGFR NON | >60 | >60 mL/min | [facility] | | | -YTRONE | | | LABORATORY | | | [...] | + + + + + | [facility] | [address] | [place] [address] | | | SERVICES, CORE | JAMIA [...] uncontrolled | + + | 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
--- OUTSIDE RECORDS SUMMARY | ~2020-06-09 | XMS | Encounter Summary ---
Demographics + + + | Address | [address] | | | [place] [address] | + + + | Home Phone [...] Team Providers + +------+ + | Care Web Press Operator Assistant Name | Role | Phone | + +------+ + | Mikki Barajas MD | PCP | | + +------+ + Encounter Details +--------+ + + + + | Date | Type | Department | Care Team | Description | +--------+ + + + + | 10/14/ | Abstract | Digestive Health | Clinic, Surgery | | | 2020 | | [place] [address] [address] | | | | | [address] | | | | | | for Health and | | | | | | Healing, [address] | | | | | | [place], [place] | | | | | | [address] | | | | | | [phone] | | | +--------+ + + + [...]
--- OUTSIDE RECORDS SUMMARY | ~2020-06-09 | XMS | Encounter Summary ---
Demographics + + + | Address | [address] | | | [place] [address] | + + + | Home Phone | | + + + | Preferred Language | Unknown | + + + | Marital Status | Single | + + + | Latter-Day Affiliation | Unknown | + + + [...] Team Providers + +------+ + | Care Assistant Corporate Secretary Name | Role | Phone | + +------+ + | Mikki Barajas MD | PCP | | + +------+ + Encounter Details +--------+--------+ + + + | Date | Type | Department | Care Team | Description | +--------+--------+ + + + | 04/21/ | Travel | | | | | 2020 | | | | | +--------+--------+ + [...] in contact | No / Unsure | 04/21/2020 10:31 AM | | with someone who was [...]
--- OUTSIDE RECORDS SUMMARY | ~2020-06-09 | XMS | Encounter Summary ---
Demographics + + + | Address | [address] | | | [place] [address] | + + + | Home Phone [...] Team Providers + +------+ + | Care Pie Maker Name | Role | Phone | + +------+ + | Mikki Barajas MD | PCP | | + +------+ + Reason for Visit +--------+--------+ + | Reason | Onset | Comments | | | Date | | +--------+--------+ + | Other | 05/25/ | See documentation | | | 2008 | | +--------+--------+ + Encounter Details +--------+ + + + + | Date | Type | Department | Care Team | Description | +--------+ + + + + | 05/25/ | Telephone | [facility] at [address] | Fawad Muhammad, | Other (See | | 2007 | | Floor [address] | | documentation) | | | | St Mailcode: [facility] | | | | | | [place], [place] | | | | | | [address] | | | | | | [phone] | | | +--------+ + + + [...] this encounter Miscellaneous Notes Telephone Encounter - Theo Santacruz - 01/05/2020 10:52 AM PDTThis encounter has been admin istratively closed with the authorization of the [facility] Committee. elephone Encounter - Grace Lauren - 05/25/2008 4:24 PM PDTKipymloraine called to cancel her appt with Dr. Muhammad on . She said her car was in the shop so she needed to cancel but wanted to come in next week as she is not doing well. I told her that Dr Colindres' first opening was 07/05/08 and that I could schedule her on that date and also put her on the wait list.Electronically sign ed by Grace Patel at 05/25/2008 4:24 PM PDTdocumented in this encounter Plan of Treatment +--------+ + + + + | Date | Type | Specialty | Care Team | Description | +--------+ + + + + | 06/05/ Procedure | Surgery | | | | 2021 | Pass | | | | +--------+ + + + + documented as of this encounter Visit Diagnoses Not on filedocumented in this encounter"
--- OUTSIDE RECORDS SUMMARY | ~2020-06-09 | XMS | Encounter Summary ---
Demographics + + + | Address | [address] | | | [place] [address] | + + + | Home Phone | | + + + | Preferred Language | Unknown | + + + | Marital Status | Single | + + + | Hinduism Affiliation | Unknown | + + + [...] Team Providers + +------+ + | Care Bow Maker Production Name | Role | Phone | + +------+ + | Fautso Sinclair | PCP | | + +------+ + Encounter Details +--------+ + + + + | Date | Type | Department | Care Team | Description | +--------+ + + + + | 06/23/ | Documentati | [facility] at [facility] 7th | Shaina Barrett | | | 2012 | on IP | Floor [address] | | | | | St Mailcode: [facility] | | | | | | [facility] [place], [place] | | | | | | [address] | | | | | | [phone] | | | +--------+ + + + [...]
--- OUTSIDE RECORDS SUMMARY | ~2020-06-09 | XMS | Encounter Summary ---
Demographics + + + | Address | [address] | | | [place] [address] | + + + | Home Phone | | + + + | Preferred Language | Unknown | + + + | Marital Status | Single | + + + | Presybeterian Affiliation | Unknown | + + + [...] Providers + +------+ + | Care Director Day Care Center Name | Role | Phone | + +------+ + | Mikki Barajas MD | PCP | | + +------+ + Encounter Details +--------+ + + + + | Date | Type | Department | Care Team | Description | +--------+ + + + + | 04/27/ | MyChart | Dig[facility]ive Health | Clinic, Surgery | Post-Op Visits | | 2020 | Encounter | Center at [facility] [address] | | | | | | [address] [facility] | | | | | | for Health and | | | | | | Healing, [address] | | | | | | [place], [place] | | | | | | [address] | | | | | | [phone] | | | +--------+ + + + [...]
--- OUTSIDE RECORDS SUMMARY | ~2020-06-09 | XMS | Encounter Summary ---
Demographics + + + | Address | [address] | | | [place] [address] | + + + | Home Phone | | + + + | Preferred Language | Unknown | + + + | Marital Status | Single | + + + | Restorationist Affiliation | Unknown | + + + [...] Team Providers + +------+ + | Care Hide Trimmer Name | Role | Phone | + +------+ + | Lexx Estiven | PCP | | + +------+ + Encounter Details +--------+ + + + + | Date | Type | Department | Care Team | Description | +--------+ + + + + | 09/11/ | Document-Sc | UNKNOWN DEPARTMENT | Unknown . | | | 2016 | anned | [address] | | | | | | [address] | | | | | | [place], [place] | | | | | | [address] | | | +--------+ + + + [...]
--- OUTSIDE RECORDS SUMMARY | ~2020-06-09 | XMS | Encounter Summary ---
Demographics + + + | Address | [address] | | | [place] [address] | + + + | Home Phone [...] Team Providers + +------+ + | Care Television News Reporter Name | Role | Phone | + +------+ + | Mikki Barajas MD | PCP | | + +------+ + Reason for Visit +--------+--------+ + | Reason | Onset | Comments | | | Date | | +--------+--------+ + | Other | 01/03/ | switching to home infusions | | | 2019 | | +--------+--------+ + Encounter Details +--------+ + + + + | Date | Type | Department | Care Team | Description | +--------+ + + + + | 01/03/ | Telephone | Metabolic Genetics | Deidre Nguyen MD | Other (switching to | | 2019 | | at [facility] | [address] [facility] | home infusions) | | | | [address] | [address] [place], | | | | | [place] | [place] [address] | | | | | [facility] | [phone] | | | | | 7th Floor [place], | | | | | | [place] [address] | | | | | | [phone] | | | +--------+ + + + [...] Notes Telephone Encounter - Xenia Herzog - 01/04/2020 10:19 AM PDTWants to switch to home infus ions since she can't go into the infusion center due to COVID and it has been over 30 days. Mom had called saying Dr. Barajas's office needed orders as her's at the end of his mo nth. I did check and we faxed them to [facility] on 12/01 at their request due to them ex piring soon. Mom said Dr. Barajas's office will get the authorization for it. I faxed them to their office. I did explain to her if she changes location to home infusions she needs to let them know that today, told her to call as soon as we were done so they can direct the PA to the correct location. I asked her if her pcp's office can set up the home infusions jhon Jones. She will check. I told her to let us know if we need to do anything at this time, but since Dr. Barajas's off ice has the orders they can do most of it. documented in this encount er Plan [...]
--- OUTSIDE RECORDS SUMMARY | ~2020-06-09 | XMS | Encounter Summary ---
Demographics + + + | Address | [address] | | | [place] [address] | + + + | Home Phone [...] Team Providers + +------+ + | Care Carbide Die Maker Name | Role | Phone | + +------+ + | Lexx Estiven | PCP | | + +------+ + Encounter Details +--------+ + + + + | Date | Type | Department | Care Team | Description | +--------+ + + + + | 05/04/ | Documentati | Metabolic Genetics | Genny Hagan | | | 2018 | on | at [facility] | B, BRUSH SANDER [address] | | | | | [address] [facility] | [facility] | | | | | [place] | [place], [place] | | | | | [facility] | [address] | | | | | [address] [place] [address], | [phone] | | | | | [place] [address] | | | | | | [phone] | | | +--------+ + + + [...] this encounter Miscellaneous Notes Telephone Encounter - Genny Hagan FNP - 05/04/2018 4:55 PM PDTMessage sent to Lalo braden in scheduling that this patient needs to be scheduled with Deidre Nguyen in June. Electr onically signed by BRYCE Boo at 05/04/2018 4:57 PM PDTdocumented in this encou er Plan of Treatment +--------+ + + [...]
--- OUTSIDE RECORDS SUMMARY | ~2020-06-09 | XMS | Encounter Summary ---
Demographics + + + | Address | [address] | | | [place] [address] | + + + | Home Phone [...] Team Providers + +------+ + | Care Field Machinist Name | Role | Phone | + [...] [id number] | | | | | | [place], [place] | | | | | | [address] | | | | | | [phone] | | | +--------+ + + + [...] | + + + + + | [facility] DEPARTMENT OF | [facility] | [place] [address] | | | PATHOLOGY | [address] | | | + + + + + | [place] DEPARTMENT OF | [facility] [address] | [place] [address] | | | PATHOLOGY | [address] [...] by Uribe | | | | | URINE-SUJIT | [facility] | | | | | M | [...] + + + | [facility] | [address] | [place] [address] | | | LABORATORY | | | [...] | + + + + + | [facility] DEPARTMENT OF | [address] [facility] | [place] [address] | | | PATHOLOGY | [address] | | | + + + + + | [facility] DEPARTMENT OF | [address] [facility] | [place] [address] | | | PATHOLOGY | [address] [...] Performed At | + + + | [id number] Estimated GFR > 60 mL/min/1.73 sq m if non- | [facility] | | [id number] Estimated GFR > 60 mL/min/1.73 sq m [...] | + + + + + | [facility] DEPARTMENT OF | [facility] [address] | [place] [address] | | | PATHOLOGY | [address] | | | + + + + + | [place] DEPARTMENT OF | [address] | [place] [address] | | | PATHOLOGY | [address] | | | + + + + + documented in this encounter Visit Diagnoses Not on filedocumented in this encounter"
--- OUTSIDE RECORDS SUMMARY | ~2020-06-09 | XMS | Encounter Summary ---
Demographics + + + | Address | [address] | | | [place] [address] | + + + | Home Phone [...] + + + | Author | [facility] | + + + | Organization | [facility] | + + + | Address | Unknown | + + + | Phone | Unavailable | + + + Support + + +---------+ + | Name | Relationship | Address | Phone | + + +---------+ + | John Miguel | ECON | Unknown | | + + +---------+ + Care Team Providers + +------+ + | Care Head Girls Golf Coach Name | Role | Phone | + +------+ + | Lexx Estiven | PCP | | + +------+ + Reason for Visit +--------+--------+ + | Reason | Onset | Comments | | | Date | | +--------+--------+ + | Other | 04/20/ | lab work | | | 2017 | | +--------+--------+ + Encounter Details +--------+ + + + + | Date | Type | Department | Care Team | Description | +--------+ + + + + | 04/20/ | Telephone | Metabolic Genetics | Deidre Nguyen MD | Other (lab work ) | | 2017 | | at [facility] | [address] | | | | | [address] | [address] [place], | | | | | [place] | [place] [address] | | | | | [facility] | [phone] | | | | | 7th Floor [place], | | | | | | [place] [address] | | | | | | [phone] | | | +--------+ + + + [...] Notes Telephone Encounter - Xenia Herzog - 04/20/2018 2:25 PM PDTI called Jarvis at home, and l et her know that her labs are due in June. Since she is currently having to pay out of p ocket $50 for both her labs and her child s labs at the infusion center, which is too expe nsive. She is interested in either of these two options: 1) calling [facility] and seeing about f inancial assistance on the labs. I provided her the phone number, because she is unable to get into her [employer]hart (password isn t working). If she is able to get financial assistance without too much difficulty, she will have her labs drawn at her June infusion. 2) if bj callcial assistance isn t going to work out, she would like to move her and her child s a nnual appt up to June instead of October and have her labs drawn here. She would like t o avoid an extra trip to [facility] for just labs, but is willing to be seen by provider in instead of Oct to facilitate lab draw. Jarvis will call [facility] today or tomorrow, and leave me a detailed voice message about what option she would prefer. Also Xenia, can you reach ou t to Jarvis or let me know how we can help her with getting mychart working for her again? Genny Danya, RADIOLOGY TECHNICIAN 04/15/18, 5:20 pm documented in this encounter Plan of Treatment [...]
--- OUTSIDE RECORDS SUMMARY | ~2020-06-09 | XMS | Encounter Summary ---
Demographics + + + | Address | [address] | | | [place] [address] | + + + | Home Phone | | + + + | Preferred Language | Unknown | + + + | Marital Status | Single | + + + | Lutheran Affiliation | Unknown | + + + | Race | White | + + + | Ethnic Group | Not or | + + + Author + + + | Author | [facility] | + + + | Organization | [facility] | + + + | Address | Unknown | + + + | Phone | Unavailable | + + + Support + + +---------+ + | Name | Relationship | Address | Phone | + + +---------+ + | John Miguel | ECON | Unknown | | + + +---------+ + Care Team Providers + +------+ + | Care Superintendent Warehouse Name | Role | Phone | + +------+ + | Lexx Estiven | PCP | | + +------+ + Reason for Visit + +--------+ + | Reason | Onset | Comments | | | Date | | + +--------+ + | IV - Intravenous | 11/06/ | [employer] Back at [facility] | | infusion | 2017 | | + +--------+ + | Prior Authorization | 11/06/ | Approved fro [employer] through 09/14/18 | | Request | 2017 | | + +--------+ + Encounter Details +--------+ + + + + | Date | Type | Department | Care Team | Description | +--------+ + + + + | 11/06/ | Telephone | [facility] at [facility] 7th | Shaina Barrett | IV - Intravenous | | 2018 | | Floor [address] | [place], [place] | infusion ([employer] | | | | St Mailcode: CDR | | Back at | | | | [facility] [place], [place] | | Ern[place]); Prior | | | | [phone] | | Authorization | | | | [phone] | | Request (Approved | | | | | | fro [employer] | | | | | | through 09/14/18) | +--------+ + + + + Social [...] Telephone Encounter - Shaina Barrett FNP - 11/06/2017 10:31 AM PSTPrior authorization approved for [employer] at [facility] Number: [id number] from 09/13/2017 to 09/14/2018. Orders are through her PCP, Dr Hallman. See scanned documents under media tab for details. Shaina Barrett [place], MPH, [facility]- Nurse Practitioner, Metabolic Clinic documented in th is encounter Plan of [...]
--- OUTSIDE RECORDS SUMMARY | ~2020-06-09 | XMS | Encounter Summary ---
Demographics + + + | Address | [address] | | | [place] [address] | + + + | Home Phone [...] Team Providers + +------+ + | Care Filter Washer Name | Role | Phone | + +------+ + | Lexx Estiven DO | PCP | | + +------+ + Reason for Visit + + + | Reason | Comments | + + + | Bariatric Nutrition | | + + + Consultation (Routine) +--------+ + + + + + | Status | Reason | Specialty | Diagnoses / | Referred By | Referred To | | | | | Procedures | Contact | Contact | +--------+ + + + + + | Closed | BAR: | Nutrition | | Non-[facility] | Fn | | | Scheduled | | | Epic Dept | [facility] | | | with COT[facility] DISP[facility] | | | | [facility] [address] | | | | | | | [address] | | | | | | | Center for | | | | | | | Health and | | | | | | | Healing, | | | | | | | [address] | | | | | | | [place], [place] | | | | | | | [address] | | | | | | | Phone: | | | | | | | [phone] | | | | | | | Fax: | | | | | | | [phone] | +--------+ + + + + + Encounter Details +--------+---------+ + + + | Date | Type | Department | Care Team | Description | +--------+---------+ + + + | 03/19/ | Office | Digestive Health | Venus [address] RD, | Morbid obesity, | | 2017 | Visit | Center at [facility] [address] | [place], [place] [address] | unspecified obesity | | | | [facility] | [address] | type (HCC) (Primary | | | | for Health and | [place], [place] | Dx); DM type 2 | | | | Healing, [address] | [address] | without retinopathy | | | | [place], [place] | [phone] | ([facility]) | | | | [address] | | | | | | [phone] | | | +--------+---------+ + + + [...] + + + + | Weight | 167.5 kg (369 lb 3.2 | 03/19/2017 10:26 AM | | | | oz) | PDT | | + + + + + | Height | - | - | | + + + + + | Body Mass Index | 66.45 | 02/03/2017 10:58 AM | | | | | PDT | | + + + + + documented in this encounter Progress Notes [facility] Sal[facility]ana RD, [facility] [place] - 03/19/2017 10:00 AM PDTFormatting of this note might be diff erent from the original. Referring Provider: Estiven Hallman DO [facility]patient [facility], Pre-Bariatric Surgery Evaluation Initial diet consultation prior to having Sleeve Gastrectomy. Documented Time of Visit: 10:20 until 11:19 (59 minutes gdeq-mm-pafz with patient). 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 SUBJECTIVE: Pt comes in alone from [facility]. Lives with children, grandchildren, mother. Patient viewed online seminar prior to visit. Recent DM diagnosis, met with MARIA TERESA in [facility] ~2.5months ago and started making changes to her diet. What have you been doing to prepare for surgery: (research) Questions/Information desired today: Read the nutrition section prior to visit. 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 Found that taking probiotics h elps. Noticed she started gaining weight after having son ~7 years ago. Are you able exercise? Yes. Does not sweat and can have seizures if not careful when exerci sing. Current Physical Exercise: Walks to the school 2 blocks (2x/day). Doing PT exercises, takin g the stairs more, has been going to [facility] in the past month. Food recall: Eating like this x 2.5 months Awakes at 6am, bed at 10am. Takes medication to help with sleep. Bkfst: yogurt with fresh fruit (berries work better than pineapple for BG control) Apples or granola bar Lunch: 1/2 SW (turkey and cheese) PM snack: peanut butter and crackers, peanut butter and celery Dinner: Daughter cooks - taco salads, chicken/broccoli/cheese bake, tacos, hamburgers, hot dogs Snacks: watermelon, cantaloupe, tomatoes, celery, cauliflower. Beverages: 1 soda/day (Coke). Drinks a lot of chamomile tea (plain) and water. No coffee or EtOH OBJECTIVE: Height: Ht Readings from Last 1 Encounters: 02/03/17 1.588 m (5' 2.5") WEIGHT ONLY 02/03/2017 Weight (lbs) 370 lbs 14 oz Weight (kg) 168.239 kg Weight: Wt Readings from Last 1 Encounters: 03/19/17 167.5 kg (369 lb 3.2 oz) BMI: Body mass index is 66.45 kg/(m^2). Past Medical History: Past Medical History: Diagnosis Date Abdominal [...] facial pain/ never locked up on her Medications: See list in Epic snap shot Medications for Diabetes: Glipizide, Januvia, Victoza Checking blood glucose: yes. Also appears to be paying attention to how different foods aff ect BG control. Dietary Supplements: PNV - tolerated the best. Cannot tolerate large doses of oral iron. Al so taking probiotics. Labs: see Results Review for current labs (if available) Nutrition Diagnosis: Obesity as evidenced by BMI of Body mass index is 66.45 kg/(m^2).. Factors contributing to obesity: Lack of a regular physical activity program. Food Choices Pre-Surgery Diet: Provided written diet suggestions to help patient lose weight before surgery. -Eat within one hour of waking, then every 3-4 waking hours -Include protein with all meals & snacks -Use healthy plate model or frozen entree (~300 calories, < 600 mg sodium) at lunch & dinn er -Begin keeping daily food logs -Choose foods & beverages with < 14 g sugar & < 5 g fat per serving -Eliminate liquid calories and carbonation; limit caffeine to 16 oz/day Discussed behavior changes to practice before surgery to prepare for surgery. -Begin fluids from meals by 30 minutes before and after -Sip fluids throughout the day, aim for 64 oz/day (non-caloric, non-caffeinated, non-carbo nated) -Begin practicing mindful eating Explore exercise program options Post-surgery diet education: Provided visual, verbal, & written information on all aspects of bariatric surgery. Discuss ed lifelong behavior changes, proper diet selections, and exercise. Encouraged patient to fo llow up with dietitian pre- or post-surgery. Written education provided: Provided and reviewed an instructional handout (bariatric surgery notebook) with the charlette t on post-surgery diet progression, sample menus, behavior modifications, food items, and vi tamin and mineral supplements needed after surgery. Emphasized the importance of a regular p hysical activity program of 30-60 minutes per day to maintain weight loss post-surgery. Patient's Comprehension: The patient is: Receptive Stage of change: Action Barrier(s) to education: No Learning style: Patient is a Visual learner, Verbal learner Information provided in writing, and used visual aids to demonstrate food portions post-luis sheri and size of stomach after surgery. Expected Outcome: I think the patient will do moderately if following all lifestyle and be havioral changes discussed today. Encouraged her to bring binder to appointments if followin g up with RD in [facility]. Patient verbalizes understanding that surgery is a tool to help achieve and maintain weight loss but that surgery will not eliminate the problems that led to weight gain. Yes, appear s to. GOAL: The patient's goal is to have weight loss surgery to maintain weight loss and improve other health conditions. 1. Continue to practice behavioral changes to prepare for surgery. 2. Increase physical activity. 3. Review all information provided for post surgery diet progression in bariatric surger y notebook. Attend 2 pre-surgery classes. 4. Call or send Vinet message to dietitian with any questions. Contact information was provided. Follow up with dietitian 1-2 weeks after surgery at first post-op visit. Venus Saldana RD, [facility], [place] [facility] Bariatrics [phone] documented i n this encounter Plan of [...] | + +--------+ + + + | AR MNT INITIAL | Routin | 03/19/2017 | Morbid obesity, | | | ASSESSMNT X15MIN | e | 11:45 AM | unspecified obesity | | | | | PDT | type (HCC) DM type | | | | | | 2 without | | | | | | retinopathy (HCC) | | + +--------+ + + + [...]
--- OUTSIDE RECORDS SUMMARY | ~2020-06-09 | XMS | Encounter Summary ---
Demographics + + + | Address | [address] | | | [place] [address] | + + + | Home Phone [...] Providers + +------+ + | Care Nuclear Unit Operator Name | Role | Phone | + +------+ + | Lexx Estiven | PCP | | + +------+ + Encounter Details +--------+ + + + + | Date | Type | Department | Care Team | Description | +--------+ + + + + | 01/12/ | Orders Only | Digestive Health | Martina Youssef, | | | 2019 | | [place] [address] [address] | RN [address] [facility] | | | | | [facility] | [facility] | | | | | for Health and | [place], [place] | | | | | [facility], [facility] | [address] | | | | | [place], [place] | | | | | | [address] | | | | | | [phone] | | | +--------+ + + + [...]
--- OUTSIDE RECORDS SUMMARY | ~2020-06-09 | XMS | Encounter Summary ---
Demographics + + + | Address | [address] | | | [place] [address] | + + + | Home Phone [...] Team Providers + +------+ + | Care Sausage Canner Name | Role | Phone | + +------+ + | Katie Dominique MD | PCP | | + +------+ + Reason for Visit + +--------+ + | Reason | Onset | Comments | | | Date | | + +--------+ + | | 11/08/ | | | | 2009 | | + +--------+ + Encounter Details +--------+ + + + + | Date | Type | Department | Care Team | Description | +--------+ + + + + | 11/08/ | Telephone | [facility] at [facility] 7th | Fawad Muhammad, | | | 2009 | | Floor [address] | MD | | | | | St Mailcode: [facility] | | | | | | [place], [place] | | | | | | [address] | | | | | | [phone] | | | +--------+ + + + [...] Notes Telephone Encounter - Xenia Herzog - 11/08/2009 11:01 AM PSTPatient just rcv'd a very dis turbing call from Dr. 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 Pg #4. Also was positive for m antigen . She talked to Dr. Crisostomo and said she needs to find out if it is related to Fabry's. I t old her I do not know anything about the m antigen problem, this certainly is a is chet and our physicians probably can't answer her questions about this, but I would need to p age RSteiner about the clotting issue. She also went on about going to [facility] and the abdirashid ic counselor (Ludy) said she should terminate the because the baby is going to have a lot of problems and will never walk. She is obviously quite upset (and going on and on about different pregnancies and how she doesn't want to have any more babies because this has had so many complications-- dizzy, etc-- and wants her tubes tied) and I told her I wasn't sure what she wanted from our office today. She said she needs to know if the clotting was due to her Fabry's. RS spoke with Dr. Paniagua - they have tried reaching her several times and sent her a cer tified letter and she just minal went out of touch, but he said she needs to take his advice -- Taurus needs copies of all medical records sent to us [facility] so he can look further into it bu t as far as he knows it is not related. Taurus had not heard that this was a complication from her Fabry's but would be willing to look into it further if he could get records. She said the release was already signed for to get the records. I told her I didn't think we rcv' d them yet. She said she is due March 04, but apparently the baby is measuring 2-3 bigger and they have told her they are taking the baby early. She wanted to make a f/u appt (per Ludy's suggestion) after the baby is born to make luis e she is not spilling protein (she currently is which she says happens with her pg's) and ch humberto her kidney functions. I transferred her to [facility] . documented in this encoun ter Plan of Treatment +--------+ + + + [...]
--- OUTSIDE RECORDS SUMMARY | ~2020-06-09 | XMS | Encounter Summary ---
Demographics + + + | Address | [address] | | | [place] [address] | + + + | Home Phone [...] Team Providers + +------+ + | Care Hardwood Floor Installer Name | Role | Phone | + +------+ + | Estiven Hallman DO | PCP | | + +------+ + Reason for Visit Consultation (Routine) + + + + + [...] | [facility] | | | with [facility] | | | | [facility] [address] | | | | | | | [address] | | | | | | | [place] for | | | | | | | Health and | | | | | | | Healing, | | | | | | | [address] | | | | | | | [place], [place] | | | | | | | [address] | | | | | | | Phone: | | | | | | | [phone] | | | | | | | Fax: | | | | | | | [phone] | + + + + + + + Encounter Details +--------+---------+ + + + | Date | Type | Department | Care Team | Description | +--------+---------+ + + + | 08/19/ | Office | Digestive Health | Trish Corea, | Morbid obesity due | | 2018 | Visit | Center at [facility] [address] | ACNP [address] | to excess calories | | | | [address] | [address] [facility] [place] | ([facility]) (Primary Dx); | | | | for Health and | [address] | DM type 2 without | | | | Healing, [address] | [phone] | retinopathy ([facility]); | | | | [place], [place] | | Fabry disease ([facility]); | | | | [address] | | Benign essential | | | | [phone] | | HTN; | | | | | | Gastroesophageal | | | | | | reflux disease | | | | | | without esophagitis | +--------+---------+ + + + Social History [...] + documented as of this encounter Progress Trish Ron ACNP - 08/19/2018 9:35 AM PSTThis patient was a no show for her re-evaluat ion for bariatric surgery. She was also a no show 08/11/18. Trish MCKENZIE [employer] Bariatric Surgery NP documented in this encounter Plan of Treatment [...] calories (HCC) - Primary | + + | DM type 2 without retinopathy (HCC) Type II or unspecified type diabetes mellitus | | without mention of complication, not stated as uncontrolled | + + | Fabry disease (HCC) Lipidoses | + + | Benign essential HTN Essential hypertension, benign | + + | Gastroesophageal reflux disease without esophagitis Esophageal reflux | + + documented in this encounter"
--- OUTSIDE RECORDS SUMMARY | ~2020-06-09 | XMS | Encounter Summary ---
Demographics + + + | Address | [address] | | | [place] [address] | + + + | Home Phone | | + + + | Preferred Language | Unknown | + + + | Marital Status | Single | + + + | Gnosticist Affiliation | Unknown | + + + | Race | White | + + + | Ethnic Group | Not or | + + + Author + + + | Author | [facility] | + + + | Organization | [facility] | + + + | Address | Unknown | + + + | Phone | Unavailable | + + + Support + + +---------+ + | Name | Relationship | Address | Phone | + + +---------+ + | John Miguel | ECON | Unknown | | + + +---------+ + Care Team Providers + +------+ + | Care Hand Candy Cutter Name | Role | Phone | + +------+ + | Estiven Hallman DO | PCP | | + +------+ + Reason for Visit Audiology Services (Routine) +--------+--------+ + + + + | Status | Reason | Specialty | Diagnoses / | Referred By | Referred To | | | | | Procedures | Contact | Contact | +--------+--------+ + + + + | Closed | | Receiver/Laborer | Diagnoses | Deidre Nguyen, | Ent | | | | | Shadi | [address] | Audiology Ppv | | | | | disease in | [address] | [address] | | | | | heterozygous | [address] | [address] | | | | | female | [facility] [place] | Physician's | | | | | ([facility]) | [phone] | Anjali, | | | | | Procedures | Phone: | 2nd floor | | | | | CONSULT TO | [phone] | [facility] [place] | | | | | AUDIOLOGY | Fax: | [address] | | | | | | [phone] | Phone: | | | | | | | [phone] | | | | | | | Fax: | | | | | | | [phone] | +--------+--------+ + + + + Encounter Details +--------+ + + + + | Date | Type | Department | Care Team | Description | +--------+ + + + + | 01/07/ | Diagnostic | Otolaryngology | Heraclio Lux, | | | 2019 | Visit | Audiology Services | Marcos,CCC-A [address] | | | | | at [facility] [address] | [address] | | | | | [address] | [place] [address] | | | | | Physician's | [phone] | | | | | Anjali, [facility] floor | | | | | | [place], [place] | | | | | | [address] | | | | | | [phone] | | | +--------+ + + + [...] documented as of this encounter Progress Notes Heraclio Lux, aMrcos,CCC-A - 01/07/2019 10:00 AM [facility] ENT Audiology Clinic NAME: Jarvis Miguel Date of : 1980 MR#: [id number] Primary Care Provider: Estiven Hallman DO Referral Source: Estiven Hallman DO [facility] Internal Medicin [address] [place] [address] Olivera: Sisters Date of Service: 01/07/19 AUDIOLOGY CLINIC Jarvis Miguel, 38 y.o., was seen for a comprehensive audiological evaluation today per Dr. Minerva Nguyen MD in the [facility] Metabolic Clinic. 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 Today, Jarvis reports difficulty hearing in both ears, the left ear being worse than the right ear. She first noticed difficulty hearing approx 3 yea rs ago after having an ear infection. She reports constant tinnitus that sounds like a "elroy g beep". She reports vertigo when moving from sitting to standing. She denies any history of noise exposure and reports her grandmother (who also has Fabry Disease) having hearing lo ss. Audiologic Results: OTOSCOPY (used to evaluate the outer ear): Right ear: Clear external auditory canal with visible tympanic membrane Left ear: Clear external auditory canal with visible tympanic membrane AUDIOMETRY (used to assess condition of hearing): Cains hearing sensitivity was evaluated using conventional audiometry with insert headpho eva. Jarvis conditioned easily to the task and her responses were consistent and considered r eliable. Pure-tone air and bone conduction results revealed: Right Ear:A mostly mild SNHL. A speech personal injury legal assistant threshold was obtained at 20 dB HL and is in good agreement with responses to pure-tone stimuli. Word recognition ability was 84% when words were presented at a comfortable level of 50 dB HL. Left Ear: A mostly mild SNHL. A speech personal injury legal assistant threshold was obtained at 30 dB HL and is in good agreement with responses to pure-tone stimuli. Word recognition ability was 100% when words were presented at a comfortable level of 60 dB HL. Please see SmartForm audiogram for details. A possible trial with bilateral amplification was discussed. Recommended annual audiograms to monitor for any further progression in hearing loss. Marcos LORENZO CCC-A documented in thi s encounter Plan of Treatment +--------+ + + [...] | + +--------+ + + + | DE COMPREHENSIVE | Routin | 01/08/2019 | Sensorineural | | | HEARING TEST | e | 8:55 AM | hearing loss (SNHL) | | | | | PDT | of both ears | | + +--------+ + + + documented in this encounter Visit Diagnoses + + | Diagnosis | + + | Sensorineural hearing loss (SNHL) of both ears - Primary | + + documented in this encounter
--- OUTSIDE RECORDS SUMMARY | ~2020-06-09 | XMS | Encounter Summary ---
Demographics + + + | Address | [address] | | | [place] [address] | + + + | Home Phone [...] Author + + + | Author | [facility] | + + + | Organization | [facility] | + + + | Address | Unknown | + + + | Phone | Unavailable | + + + Support + + +---------+ + | Name | Relationship | Address | Phone | + + +---------+ + | John Miguel | ECON | Unknown | | + + +---------+ + Care Team Providers + +------+ + | Care Vehicle Body Builder Name | Role | Phone | + [...] as of this encounter Progress Notes Interface, Regeneration Operator In - 08/02/2006 2:33 AM PST [id number] IVA [id number] Clinic Date: 07/14/2006 Clinic: Pediatric Metabolic Primary [...] replacement, we are currently awaiting approval from [facility] which is her insurance provider as [...] p.o. q. day. 2. Iron supplementation. 3. Grdg-rvt-hoflsvk multivitamin 1 supplement. Allergies: PEN.VEE K CAUSES [...] is 2+. There is no clonus. Impression: aJrvis is a 26-year-old female with Fabry's disease [...] patient was seen in conjunction with Dr. Fwaad Muhammad. Deangelo Crawford M.D. Fawad Muhammad M.D. Entertainment Usher of Pediatrics and Molecular Medical Genetics e-mail:[email or web address] / [id number] / [id number] / [phone] / [phone] Electronically signed by Fawad Muhammad 07-30-2006 06:20:55 [...]
--- OUTSIDE RECORDS SUMMARY | ~2020-06-09 | XMS | Encounter Summary ---
Demographics + + + | Address | [address] | | | [place] [address] | + + + | Home Phone | | + + + | Preferred Language | Unknown | + + + | Marital Status | Single | + + + | Cheondoism Affiliation | Unknown | + + + [...] Team Providers + +------+ + | Care Ripshear Operator Name | Role | Phone | + +------+ + | Estiven Hallman DO | PCP | | + +------+ + Reason for Visit + + + | Reason | Comments | + + + | Medication | updated orders sent to PCP to cosign | | management | | + + + Encounter Details +--------+ + + + + | Date | Type | Department | Care Team | Description | +--------+ + + + + | 04/29/ | Documentati | Metabolic Genetics | Genny Hagan | Medication | | 2018 | on | at [facility] | B, DRIER TENDER [address] [facility] | management (updated | | | | [address] | [facility] | orders sent to PCP | | | | Josephine | [place], [place] | to [facility]) | | | | [facility]'s [facility] | [address] | | | | | 7th Floor [place], | [phone] | | | | | [place] [address] | | | | | | [phone] | | | +--------+ + + + [...] Telephone Encounter - Genny Hagan FNP - 04/29/2018 1:47 PM PDTUpdated orders for Luke cook sent to PCP Nicole Hallman to sign and send to [facility], dated 04/29/18.Electr onically signed by BRYCE Boo at 04/29/2018 1:50 PM PDTdocumented in this encou nter Plan of Treatment +--------+ + + + [...]
--- OUTSIDE RECORDS SUMMARY | ~2020-06-09 | XMS | Encounter Summary ---
Demographics + + + | Address | [address] | | | [place] [address] | + + + | Home Phone [...] Providers + +------+ + | Care Manager In Training Name | Role | Phone | + [...] Rd | | | | | | [place], [place] | | | | | | [address] | | | +--------+ + + + [...] + + documented as of this encounter Procedure Wanda Dutta, Faculty - 02/25/2014 11:25 AM PDTAssociated Order(s): ORDERS OTHERElectronically sig corinne by Faculty Other at 02/25/2014 11:26 AM PDTdocumented in this encounter Plan of [...] | Procedure Note | + + | Other, Faculty - 02/25/2014 11:25 AM PDT | + + documented in this encounter Visit Diagnoses Not on filedocumented in this encounter"
--- OUTSIDE RECORDS SUMMARY | ~2020-06-09 | XMS | Encounter Summary ---
Demographics + + + | Address | [address] | | | [place] [address] | + + + | Home Phone [...] Team Providers + +------+ + | Care Gearman Name | Role | Phone | + +------+ + | Mikki Barjaas MD | PCP | | + +------+ + Reason for Visit + +--------+ + | Reason | Onset | Comments | | | Date | | + +--------+ + | Treatment Planning | 08/04/ | | | | 2018 | | + +--------+ + Encounter Details +--------+ + + + + | Date | Type | Department | Care Team | Description | +--------+ + + + + | 08/04/ | Telephone | [facility] Comprehensive | Alda Marie | Treatment Planning | | 2019 | | Pain Center at | W, PhD [address] | | | | | Formerly Named [facility] | [address] [facility] [place] | | | | | [address] | [address] | | | | | [facility] | [phone] | | | | | and Healing, | | | | | | Building | | | | | | [place], [place] | | | | | | [address] | | | | | | [phone] | | | +--------+ + + + [...] this encounter Miscellaneous Notes Telephone Encounter - Alda Marie, PhD - 08/04/2019 5:16 PM PSTTelephone Call Spoke with Jarvis. She has a new therapist, for 3 weeks now. Heather at [employer]. Sees once p er week. Alda Marie, PhD Licensed Psychologist [facility] [address] [place] [address] and [facility], [address] [place] [address] (main) [phone] (direct) documented in thi s encounter Plan of [...]
--- OUTSIDE RECORDS SUMMARY | ~2020-06-09 | XMS | Encounter Summary ---
Demographics + + + | Address | [address] | | | [place] [address] | + + + | Home Phone | | + + + | Preferred Language | Unknown | + + + | Marital Status | Single | + + + | Jewish Affiliation | Unknown | + + + [...] Team Providers + +------+ + | Care Group Exercise Manager Name | Role | Phone | [...] + + + + | 07/14/ | Abstract | Digestive [facility] | Clinic, Surgery | Medical Records | | 2016 | | [place] [address] | | Review | | | | [facility] | | | | | | for Health and | | | | | | [facility], [facility] [address] | | | | | | [place], [place] | | | | | | [address] | | | | | | [phone] | | | +--------+ + + + [...]
--- OUTSIDE RECORDS SUMMARY | ~2020-06-09 | XMS | Encounter Summary ---
Demographics + + + | Address | [address] | | | [place] [address] | + + + | Home Phone | | + + + | Preferred Language | Unknown | + + + | Marital Status | Single | + + + | Sikh Affiliation | Unknown | + + + | Race | White | + + + | Ethnic Group | Not or | + + + Author + + + | Author | [facility] | + + + | Organization | [facility] | + + + | Address | Unknown | + + + | Phone | Unavailable | + + + Support + + +---------+ + | Name | Relationship | Address | Phone | + + +---------+ + | John Miguel | ECON | Unknown | | + + +---------+ + Care Team Providers + +------+ + | Care Spd Manager Name | Role | Phone | + +------+ + | Fausto Sinclair | PCP | | + +------+ + Encounter Details +--------+------+ + + + | Date | Type | Department | Care Team | Description | +--------+------+ + + + | 11/24/ | Lab | Lab Center at | | Fabry disease (HCC) | | 2012 | | [facility] | | | | | | [facility] | | | | | | [address] [facility] | | | | | | [facility] | | | | | | [facility] | | | | | | 7th Floor [place], | | | | | | [place] [address] | | | | | | [phone] | | | +--------+------+ + + + [...] + | COMPLETE METABOLIC | Routin | 11/24/2012 | Fabry disease | Results for this | | SET | e | 3:51 PM | (HCC) | procedure are in the | | (NA,K,CL,CO2,BUN,CRE | | PDT | | results section. | | AT,GLUC,CA,AST,ALT,B | | | | | | BECCA TOTAL,ALK | | | | | | PHOS,ALB,PROT TOTAL) | | | | | + +--------+ + + + | UA, DIPSTICK ONLY | Routin | 11/24/2012 | Fabry disease | Results for this | | | e | 3:51 PM | (HCC) | procedure are in the | | | | PDT | | results section. | + +--------+ + + + | LIPID SET (TRIG, T | Routin | 11/24/2012 | Fabry disease | Results for this | | CHOL, HDL, CALC LDL) | e | 3:51 PM | (HCC) | procedure are in the | | | | PDT | | results section. | + +--------+ + + + | PROTEIN, URINE | Routin | 11/24/2012 | Fabry disease | Results for this | | | e | 3:51 PM | (HCC) | procedure are in the | | | | PDT | | results section. | + +--------+ + + + | CREATININE, URINE | Routin | 11/24/2012 | Fabry disease | Results for this | | | e | 3:51 PM | (HCC) | procedure are in the | | | | PDT | | results section. | + +--------+ + + + documented in this encounter Results PROTEIN, URINE (11/24/2012 3:51 PM PDT) + + + + + + | Component | Value | Ref Range | Performed | Pathologist | | | | | At | Signature | + + + + + + | PROTEIN | 12 | mg/dL | [facility] | | | CONC URINE | | | LABORATORY | | | | | | SERVICES, | | | | | | CORE | | + + + + + + | PROTEIN/CRE | 0.11 (H) | <0.10 mg/mg | [facility] | | | ATININE | | | LABORATORY | | | RATIO | | | SERVICES, | | | | | | CORE | | + + + + + + | URINE | Random | (none) | [facility] | | | INTERVAL | | | LABORATORY | | | | | | SERVICES, | | | | | | CORE | | + + + + + + | URINE | Spot | (none) | [facility] | | | VOLUME | | | LABORATORY | | | | | | SERVICES, | | | | | | CORE | | + + + + + + + + | Specimen | + + | Urine - Urine | + + + + + | Narrative | Performed At | + + + | Normal values based on 24 hour collection interval. Patient | [facility] | | results are calculated from actual collection interval and volume. | LABORATORY | | | [facility] [facility] | + + + + + + + + | Performing | Address | City/State/Zipcode | Phone Number | | Organization | | | | + + + + + | [facility] | [address] | [place] [address] | | | SERVICES, [place] | [address] | | | + + + + + CREATININE, URINE (11/24/2012 3:51 PM PDT) + +--------+ + + + | Component | Value | Ref Range | Performed | Pathologist | | | | | At | Signature | + +--------+ + + + | CREATININE | 112.30 | mg/dL | [facility] | | | CONC UR | | | LABORATORY | | | | | | SERVICES, | | | | | | CORE | | + +--------+ + + + | URINE | Random | (none) | [facility] | | | INTERVAL | | | LABORATORY | | | | | | SERVICES, | | | | | | CORE | | + +--------+ + + + | URINE | Spot | (none) | [facility] | | | VOLUME | | | LABORATORY | | | | | | SERVICES, | | | | | | CORE | | + +--------+ + + + + + | Specimen | + + | Urine - Urine | + + + + + | Narrative | Performed At | + + + | Normal values based on 24 hour collection interval. Patient | [facility] | | results are calculated from actual collection interval and volume. | LABORATORY | | | SERVICES, CORE | + + + + + + + + | Performing | Address | City/State/Zipcode | Phone Number | | Organization | | | | + + + + + | [facility] | [address] | [place] [address] | | | SERVICES, CORE | [address] | | | + + + + + COBY MUNIZ (11/24/2012 3:51 PM PDT) + + + + + + | Component | Value | Ref Range | Performed | Pathologist | | | | | At | Signature | + + + + + + | COLOR(UR) | Yellow | (none) | [facility] | | | | | | LABORATORY | | | | | | [place], | | | | | | [place] | | + + + + + + | APPEARANCE | Sl.Cloudy | (none) | [facility] | | | | | [...] + + + + | PH(UR) | 6.0 | 5.0 - 8.0 | [facility] | [...] + + + + | SPECIFIC | 1.011 | 1.005 - 1.030 | [facility] | | | GRAVITY | | | LABORATORY | | | [...] [facility] | [address] | [place] [address] | | | SERVICES, CORE | [address] | | | + + + + + LIPID SET (TRIG, T CHOL, HDL, CALC LDL) (11/24/2012 3:51 PM PDT) + +---------+ + + + | Component | Value | Ref Range | Performed | Pathologist | | | | | At | Signature | + +---------+ + + + | CHOLESTEROL | 199 | <200 mg/dL | [facility] | | | (LAB) | | | LABORATORY | | | | | | SERVICES, | | | | | | CORE | | + +---------+ + + + | TRIGLYCERID | 120 | <150 mg/dL | [facility] | | | ES | | | LABORATORY | | | | | | SERVICES, | | | | | | CORE | | + +---------+ + + + | HDL | 48 | >40 mg/dL | [facility] | | [...] +---------+ + + + | LDL | 127 (H) | <100 mg/dL | [facility] | | | CHOLESTEROL | | | LABORATORY | | | , | | | SERVICES, | | | CALCULATED | | | CORE | | + +---------+ + + + | VLDL | 24 | <31 mg/dL | [facility] | | | CHOLESTEROL | | | LABORATORY | | | , | | | SERVICES, | | | CALCULATED | | | CORE | | + +---------+ + + + | NON-HDL | 151 (H) | <130 mg/dL | [facility] | [...] | + + + + + | [facility] | [address] [facility] [address] | [place] [address] | | | SERVICES, CORE | [address] | | | + + + + + COMPLETE METABOLIC SET (NA,K,CL,CO2,BUN,CREAT,GLUC,CA,AST,ALT,BILI TOTAL,ALK PHOS,ALB,PROT TOTAL) (11/24/2012 3:51 PM PDT) + +---------+ + + + | Component | Value | Ref Range | Performed | Pathologist | | | | | At | Signature | + +---------+ + + + | GLUCOSE, | 98 | 60 - 99 mg/dL | [facility] [...] +---------+ + + + | CREATININE | 0.69 | 0.60 - 1.10 | [facility] | | | PLASMA | | mg/dL | LABORATORY | | | (LAB) | | | SERVICES, | | | | | | CORE | | + +---------+ + + + | EGFR | >60 | mL/min | [facility] | | | - | | | LABORATORY | | | TAJIK | | | SERVICES, | | | | | | CORE | | + +---------+ + + + | EGFR NON | >60 | mL/min | [facility] | | | -TYRONE | | | LABORATORY | | | RICAN | | | SERVICES, | | | | | | CORE | | + +---------+ + + + | SODIUM, | 137 | 136 - 145 | [facility] | | | PLASMA | | mmol/L | LABORATORY | | | (LAB) | | | SERVICES, | | | | | | CORE | | + +---------+ + + + | POTASSIUM, | 3.7 | 3.4 - 5.0 | [facility] | | | PLASMA | | mmol/L | LABORATORY | | | (LAB) | | | SERVICES, | | | | | | CORE | | + +---------+ + + + | CHLORIDE, | 105 | 97 - 108 mmol/L | [facility] | | | PLASMA | | | LABORATORY | | | (LAB) | | | SERVICES, | | | | | | CORE | | + +---------+ + + + | TOTAL CO2, | 23 | 21 - 32 mmol/L | [facility] | | | PLASMA | | | LABORATORY | | | (LAB) | | | SERVICES, | | | | | | CORE | | + +---------+ + + + | CALCIUM, | 8.9 | 8.6 - 10.2 | [facility] | | | PLASMA | | mg/dL | LABORATORY | | | (LAB) | | | SERVICES, | | | | | | CORE | | + +---------+ + + + | BILIRUBIN | 0.4 | 0.3 - 1.2 mg/dL | [facility] | | | TOTAL | | | LABORATORY | | | | | | SERVICES, | | | | | | CORE | | + +---------+ + + + | TOTAL | 8.4 (H) | 6.1 - 7.9 g/dL | [facility] [...] + + + | ALK PHOS | 139 (H) | 42 - 98 U/L | [facility] | | | | | | LABORATORY | | | | | | SERVICES, | | | | | | CORE | | + +---------+ + + + | AST(SGOT) | 35 | 15 - 41 U/L | [facility] | | | | | | LABORATORY | | | | | | SERVICES, | | | | | | CORE | | + +---------+ + + + | ALT (SGPT) | 47 | 12 - 60 U/L | [facility] [...] + + + | ANION GAP | 9 | 4 - 11 mmol/L [...] | + + + + + | [facility] | [address] | [place] [address] | | | SERVICES, CORE | [address] | | | + + + + + documented in this encounter Visit Diagnoses + + | Diagnosis | + + | Fabry disease (HCC) Lipidoses | + + documented in this encounter"
--- OUTSIDE RECORDS SUMMARY | ~2020-06-09 | XMS | Encounter Summary ---
Demographics + + + | Address | [address] | | | [place] [address] | + + + | Home Phone | | + + + | Preferred Language | Unknown | + + + | Marital Status | Single | + + + | Anabaptist Affiliation | Unknown | + + + | Race | White | + + + | Ethnic Group | Not or | + + + Author + + + | Author | [facility] | + + + | Organization | [facility] | + + + | Address | Unknown | + + + | Phone | Unavailable | + + + Support + + +---------+ + | Name | Relationship | Address | Phone | + + +---------+ + | John Miguel | ECON | Unknown | | + + +---------+ + Care Team Providers + +------+ + | Care Well Reactivator Operator Name | Role | Phone | + +------+ + PCP | Unavailable | + +------+ + Encounter Details +--------+ + + + + | Date | Type | Department | Care Team | Description | +--------+ + + + + | 06/25/ | Office | [facility] | Clinic, Pediatric | Progress Note | | 2004 | Visit-Trans | ENDOCRINOLOGY | Metabolic | [...] as of this encounter Progress Notes Interface, Database Reporting Consultant In - 07/01/2005 5:04 AM PDT [id number] IVA ZHU Clinic Date: 06/25/2005 Clinic: Pediatric Metabolic 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 Jarvis recently had a baby girl in April 2005. She states since the delivery of the baby, her Fabry symptoms have worsened. She describes worsening of the burning sensation that she feels in her hands and feet, increased fatigue, increased heaviness in her legs. She also describes problems with low blood pressures which she checks both in her primary care physician's office as well as at home. However, she cannot remember the exact numbers that her blood pressures have been running; 2 weeks ago, she states she was admitted to the hospital for blood pressure monitoring due to low blood pressures. Jarvis has also been struggling with increased nausea and migraines. She gets an intermittent blistery rash on her chest and abdomen that come and go with stress. Medication: Protonix, vitamins, Phenergan, Vicodin p.r.n. for headaches. Physical Examination: General: In general, she is alert, nontoxic, in no acute distress. HEENT: Normocephalic, atraumatic. Extraocular movements are intact. Pupils are equal, round, and reactive to light. Cardiovascular: Regular rate and rhythm. No murmur. Lungs: Clear to auscultation bilaterally. Abdomen: Obese. Extremities: Cool. Neurologic: Strength is 4/5 in all extremities bilaterally though actually it is difficult to assess. Gait is normal. Deep tendon reflexes are 2+ and symmetric. 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 We recommend that she continues to follow her blood pressure closely with her primary care physician. We discussed starting Fabrazyme, which Jarvis is very interested in starting. We had recommended starting FAbrazyme enzyme replacement therapy previously, but just as we were pursuing this, she lakisha ,a nd is a relative contraindication to use of Fabrazyme. We also discussed the fact that Jarvis is currently breast-feeding and discussed the pros and cons of starting the Fabrazyme at this time. Jarvis is aware of a current study going on involving Fabrazyme in breast-feeding women. We will attempt to get more information regarding the study. (We found out that she is not eligible for that study). We recommend Jarvis be started on Fabrazyme, and we will help get the arrangements in order for that. Jarvis is also requesting that her new baby girl be tested for Fabry disease. We will send the instructions on how this sample should be obtained locally at the [facility] which is near where she lives. The sample would have to be DNA mutation analysis sent to [facility] in [place]. We would like to see Jarvis back in Metabolic Clinic in 6 months or sooner p.r.n. Tawny Sanches M.D. Fawad Muhammad M.D. [employer] Prescription Clerk of Pediatrics and Molecular Medical Genetics e-mail:[email or web address] / [id number] / [id number] / [phone] / [phone] cc: Fab Delarosa DO [address], [place] [address] Electronically signed by Fawad Muhammad 06-30-2005 10:11:17 AM documented i n this encounter Plan of [...]
--- OUTSIDE RECORDS SUMMARY | ~2020-06-09 | XMS | Encounter Summary ---
Demographics + + + | Address | [address] | | | [place] [address] | + + + | Home Phone [...] | + + +---------+ + | John Enrqiue | ECON | Unknown | | + + +---------+ + Care Team Providers + +------+ + | Care Industrial Roofer Helper Name | Role | Phone | + +------+ + | Mikki Barajas MD | PCP | | + +------+ + Reason for Visit Diagnostic Testing (Routine) + +--------+ + + + + | Status | Reason | Specialty | Diagnoses / | Referred By | Referred To | | | | | Procedures | Contact | Contact | + +--------+ + + + + | New Request | | Cardiology | Diagnoses | O Elvin, | [place] | | | | | Fabry | Sterling Y, | Health & | | | | | disease | [address] | [employer] | | | | | ([facility]) | Perez Jin | [address] | | | | | Procedures | Naty Isaacs | [address] | | | | | TRANSTHORACI | [place], [place] | ROAD | | | | | C | [address] | [place], [place] | | | | | ECHOCARDIOGR | Phone: | [phone] | | | | | AM, ADULT | [phone] | Phone: | | | | | | Fax: | [phone] | | | | | | [phone] | | + +--------+ + + + + Encounter Details +--------+ + + + + | Date | Type | Department | Care Team | Description | +--------+ + + + + | 05/15/ | Hospital | Cardiac | | | | 2020 | Encounter | Non-Invasive Testing | | | | | | at [facility] [address] | | | | | | [facility], | | | | | | [address] | | | | | | [facility] [place] | | | | | | [address] | | | | | | [phone] | | | +--------+ + + + [...] + + documented as of this encounter Medications at Time of Discharge + + + +---------+ + + | Medication | Sig | Dispensed | Refills | Start | End Date | | | | | | Date | | + + + +---------+ + + | acetaminophen 325 | Take 325 mg by mouth | | 0 | | | | mg Oral | every four hours as | | | | | | tabletIndications: | needed. 2 tabs | | | | | | headache disorder | daily for headaches. | | | | | | | Indications: | | | | | | | HEADACHE DISORDER | | | | | + + + +---------+ + + | Agalsidase Beta | Inject 140 mg into | 140 mg | 26 | 06/15/20 | | | (FABRAZYME) 35 mg | the vein (IV) every | | | 14 | | | intravenous recon | fourteen days. | | | | | | solnIndications: | Indications: Fabry | | | | | | Fabry disease | Disease | | | | | + + + +---------+ + + | amitriptyline 25 | Take 75 mg by mouth | | 0 | | | | mg Oral Tablet | once daily at | | | | | | | bedtime. | | | | | + + + +---------+ + + | cholecalciferol | Take 1 capsule by | 90 | 1 | 01/13/20 | | | (Vitamin D3) | mouth once daily. | capsule | | 19 | | | (VITAMIN D3) 2,000 | | | | | | | unit oral capsule | | | | | | + + + +---------+ + + | ergocalciferol | Take 1 capsule by | 12 | 0 | 01/13/20 | | | 50,000 unit oral | mouth every seven | capsule | | 19 | | | capsuleIndications: | days. For 12 weeks | | | | | | vitamin D deficiency | Indications: Vitamin | | | | | | (high dose therapy) | D Deficiency (High | | | | | | | Dose Therapy) | | | | | + + + +---------+ + + | hydrOXYzine | Take 50 mg by mouth | | 0 | 09/11/20 | | | pamoate 50 mg oral | every six hours as | | | 16 | | | capsule | needed for anxiety. | | | | | + + + +---------+ + + | insulin glargine | Inject 45 Units | | 0 | | | | 100 unit/mL | under the skin | | | | | | subcutaneous | (SUBC) once daily in | | | | | | solution | the morning. | | | | | + + + +---------+ + + | JANUVIA 100 mg | Take 100 mg by mouth | | 1 | 11/02/19 | | | oral tablet | once daily. | | | 17 | | + + + +---------+ + + | LATUDA 120 mg oral | Take 120 mg by mouth | | 0 | 10/11/19 | | | tablet | once daily. | | | 16 | | + + + +---------+ + + | NOVOLOG U-100 | Inject 1-4 Units | | 0 | 06/17/20 | | | INSULIN ASPART 100 | under the skin | | | 19 | | | unit/mL subcutaneous | (SUBC) three times | | | | | | solution | daily before meals. | | | | | + + + +---------+ + + | nystatin 100,000 | Apply to affected | 15 g | 2 | 05/11/20 | | | unit/gram topical | area two times | | | 20 | | | powderIndications: | daily. Apply to | | | | | | soft tissue | candidal lesions | | | | | | infection | until lesions have | | | | | | | healed. Indications: | | | | | | | skin infection | | | | | + + + +---------+ + + | omeprazole 20 mg | Take 20 mg by mouth | | 1 | 10/25/19 | | | oral capsule,delayed | once daily at | | | 17 | | | release(DR/EC) | bedtime. | | | | | + + + +---------+ + + | prazosin 2 mg oral | Take 2 mg by mouth | | 0 | 09/11/20 | | | capsule | once daily at | | | 16 | | | | bedtime. | | | | | + + + +---------+ + + | propranolol 40 mg | Take 40 mg by mouth | | 0 | 09/11/20 | | | oral tablet | three times daily. | | | 16 | | + + + +---------+ + + | VICTOZA 2-DESTINEE 0.6 | Inject 1.8 mg under | | 1 | 10/28/19 | | | mg/0.1 mL (18 mg/3 | the skin (SUBC) once | | | 17 | | | mL) subcutaneous pen | daily at bedtime. | | | | | | injector | | | | | | + + + +---------+ + + documented as of this encounter Progress Mary Easley - 05/15/2020 10:30 AM PDTTransthoracic echocardiogram completed. Final report to follow. documented in this en counter Plan of Treatment +--------+ + + + [...] | + +--------+ + + + | TRANSTHORACIC | Routin | 05/15/2020 | Fabry disease | Results for this | | ECHOCARDIOGRAM, | e | 10:31 AM | (HCC) | procedure are in the | | ADULT | | PDT | | results section. | + +--------+ + + + documented in this encounter Results TRANSTHORACIC ECHOCARDIOGRAM, ADULT (05/15/2020 10:31 AM PDT) + +-------+ + + + | Component | Value | Ref Range | Performed | Pathologist | | | | | At | Signature | + +-------+ + + + | AOV VMN | 3.5 | | [facility] | | | (AORTIC | | | OF | | | VALVE) | | | CARDIOLOGY | | + +-------+ + + + | BIPLANE, EF | 66 | | [facility] | | | | | | OF | | | | | | CARDIOLOGY | | + +-------+ + + + | LA | 4.1 | | [facility] | | | DIMENSION | | | OF | | | | | | CARDIOLOGY | | + +-------+ + + + | LVIDD | 4.3 | | [facility] | | | | | | OF | | | | | | CARDIOLOGY | | + +-------+ + + + | MV A VMAX | 0.8 | | [facility] | | | | | | OF | | | | | | CARDIOLOGY | | + +-------+ + + + | MV E? | 0.1 | | [facility] | | | | | | OF | | | | | | CARDIOLOGY | | + +-------+ + + + | MV E VMAX | 0.9 | | [facility] | | | | | | OF | | | | | | CARDIOLOGY | | + +-------+ + + + | MV E/E' | 8.4 | | [facility] | | | (MITRAL | | | OF | | | VALVE) | | | CARDIOLOGY | | + +-------+ + + + | MITRAL | 13.2 | | [facility] | | | ANNULUS | | | OF | | | MEDIAL E/E" | | | CARDIOLOGY | | | (TISSUE | | | | | | DOPPLER) | | | | | + +-------+ + + + | RV TAPSE | 1.9 | | [facility] | | | | | | OF | | | | | | CARDIOLOGY | | + +-------+ + + + | RV TDI S? | 11.0 | | [facility] | | | | | | OF | | | | | | CARDIOLOGY | | + +-------+ + + + + + | Specimen | + + | | + + + +---- + | Narrative | Per formed At | + +---- + | [facility] | [facility] DE[facility] OF | | [facility] [address]OLOGY | | [place], [place] [address] Ph: | | | Pt Name: JARVIS ENRIQUE | | | Study Date/Time 05/15/2020 / 10:31:25 AMMRN: [id number] | | | Most recent prior: -[facility] #: [id number] | | | No. previous echos: 0DOB: 1980 40 years | | | Heart Rate: 60 bpmHeight: 63.0 in | | | Blood Pressure: 116/69 mm/HgWeight: 325.8 lb | | | Gender: FBSA: 2.38 m | | | Order ID: [id number] Study | | | [facility]: Mary Carballo BS, RDCS, AE, RVTReferring | | | Provider: STERLING TORRESVERDE VALLEY MEDICAL CENTERodalities Performed: 2D, Color flow, | | | Spectral Doppler.Study Quality: Good.Imaging Limitations: Patient body | | | habitus.Exam Indication: Pre-operative eval. with signs of CV | | | diseaseHistory: Fabry's disease manifesting with acroparesthesia, | | | headaches, fatigue Patient history has been obtained from the EHR | | | Transthoracic Echocardiographic Report | | | + | | | ---------+ Final Impressions: | | | | | | | | | | | | | | | 1. The left ventricular size is normal. | | | 2. There is mild | | | concentric left ventricular hypertrophy. | | | 3. The LV function is normal. | | | 4. Right ventricular size, | | | thickness and function are normal. 5. | | | Strain was not performed due to image quality but no overt | | | echocardiographic findings to suggest heart | | | involvement in Fabry. However, cardiac MRI with T1 mapping is | | | recommended if there is a clinical suspicion or symptoms. | | | | | | 6. There are no prior exams available for | | | comparison. | | | | | | | | | + | | | + Description of Findings: Cardiac Rhythm: Normal sinus | | | rhythm.Left Ventricle: The left ventricular size is normal. There is | | | mild concentric left ventricular hypertrophy. The LV diastolic filling | | | pattern is normal. The ejection fraction is 65.6 % as measured by | | | Zaragoza's biplane method. The LV function is normal.Left Ventricular | | | Wall Motion: Left ventricular systolic thickening is normal in all | | | segments.Atria: Left atrial size is normal. Normal right atrium.Right | | | Ventricle: Right ventricular size, thickness and function are normal. | | | TAPSE measures 1.9cm. The RV TDI s' velocity is 11cm/sec.Aortic Valve: | | | The aortic valve is trileaflet and normal in structure and function. | | | No indication of aortic valve regurgitation.Mitral Valve: The mitral | | | valve is structurally normal. No evidence of mitral valve stenosis. No | | | evidence of mitral valve regurgitation.Tricuspid Valve: The tricuspid | | | valve is structurally normal. Trace tricuspid regurgitation.Pulmonic | | | Valve: The pulmonic valve is structurally normal.Aorta: Visualized | | | portions of the ascending aorta and aortic root appear normal.Venous: | | | Inferior vena cava is normal with normal inspiratory | | | collapse.Pericardium: No pericardial effusion is seen. Additional | | | Findings: There are no prior exams.2D Measurements | | | Doppler Measurements 2D NL Values Aortic | | | MitralLVID(d) 4.31 (3.5-5.7cm) Max Haim 1.23 | | | Peak E 0.93 cm | | | m/s m/sLVID(s) 2.31 | | | Mean grad 3.5 Peak A 0.84 cm | | | mmHg m/sIVS(d) | | | 1.05 (0.6-1.1cm) LVOT Haim 0.99 E/A Ratio 1.11 | | | cm m/sLVPW(d) 1.08 | | | (0.6-1.1cm) LVOT VTI 0.217 TDI (E/e') 8.4 cm | | | mLA A/Ps 2D 4.09 (2.7-3.9cm) LVOT | | | Diam 2.13 MV mn gd cm | | | cmLA vol A/L 26.3 (16-34) LVOT SV 32.3 MR | | | EROindex ml/m | | | indexed ml/m | | | LA vol MOD 58.7 (40-73ml) Tricuspid PulmonicBP | | | ml TR Vmax PV Vmax | | | 1.0LA vol MOD 24.7 (16-34) | | | m/sindex ml/m | | | LVEDV 38.69 Aorta: | | | Index:index ml/m | | | Ao Sinus 3.32 (2.1-3.5cm)Biplane EF 65.6 % | | | cm | | | Asc Ao 2.88 | | | (prox) cmEvaluation of chamber size and geometry is | | | accomplished through the incorporation of linear, volumetric, and | | | indexed values Report electronically signed by: [id number] Kostas Leonard | | | (05/15/2020, 12:14:18 PM) Final | | |LA vol MOD 24.7 (16-34) m/s | | |index ml/m | | |LVEDV 38.69 Aorta: Index: | | |index ml/m Ao Sinus 3.32 (2.1-3.5cm) | | |Biplane EF 65.6 % cm | | | Asc Ao 2.88 | | | (prox) cm | | |Evaluation of chamber size and geometry is accomplished through the incorporation of | | |linear, volumetric, and indexed values | | | | | |Report electronically signed by: [id number] Kostas Leonard MD (05/15/2020, 12:14:18 PM) | | | | | | | | | | | | Final | | + +---- + + + | Procedure Note | + + | Interface, Cardiology Results - 05/15/2020 12:14 PM [facility] | | [facility] Echocardi[facility] [address] [place] [address] | | [place], [place] [address] Pt Name: JARVIS | | MARCELLO ENRIQUE Study Date/Time 05/15/2020 / 10:31:25 AMMRN: [id number] | | Most recent prior: -Acc #: [id number] No. previous echos: 0DOB: | | 1980 40 years Heart Rate: 60 bpmHeight: 63.0 in Blood | | Pressure: 116/69 mm/HgWeight: 325.8 lb Gender: FBSA: | | 2.38 m | | Order ID: [id number] [facility] | | Mary Carballo BS, RDCS, AE, RVTReferring Provider: STERLING TORRESAdventHealth Carrollwood | | Performed: 2D, Color flow, Spectral Doppler.Study Quality: Good.Imaging Limitations: | | Patient body habitus.Exam Indication: Pre-operative eval. with signs of CV | | diseaseHistory: Fabry's disease manifesting with acroparesthesia, headaches, fatigue | | Patient history has been obtained from the EHR Transthoracic Echocardiographic | | Report+ + | | Final Impressions: | | | | 1. The left ventricular | | size is normal. 2. There is mild concentric left | | ventricular hypertrophy. 3. The LV function is normal. | | 4. Right ventricular size, thickness and | | function are normal. 5. Strain was not performed due to image quality | | but no overt echocardiographic findings to suggest heart involvement | | in Fabry. However, cardiac MRI with T1 mapping is recommended if there is a | | clinical suspicion or symptoms. | | 6. There are no prior exams available for comparison. | | | | + + | | Description of Findings: Cardiac Rhythm: Normal sinus rhythm.Left Ventricle: The left | | ventricular size is normal. There is mild concentric left ventricular hypertrophy. The | | LV diastolic filling pattern is normal. The ejection fraction is 65.6 % as measured by | | Zaragoza's biplane method. The LV function is normal.Left Ventricular Wall Motion: Left | | ventricular systolic thickening is normal in all segments.Atria: Left atrial size is | | normal. Normal right atrium.Right Ventricle: Right ventricular size, thickness and | | function are normal. TAPSE measures 1.9cm. The RV TDI s' velocity is 11cm/sec.Aortic | | Valve: The aortic valve is trileaflet and normal in structure and function. No | | indication of aortic valve regurgitation.Mitral Valve: The mitral valve is structurally | | normal. No evidence of mitral valve stenosis. No evidence of mitral valve | | regurgitation.Tricuspid Valve: The tricuspid valve is structurally normal. Trace | | tricuspid regurgitation.Pulmonic Valve: The pulmonic valve is structurally normal.Aorta: | | Visualized portions of the ascending aorta and aortic root appear normal.Venous: | | Inferior vena cava is normal with normal inspiratory collapse.Pericardium: No | | pericardial effusion is seen. Additional Findings: There are no prior exams.2D | | Measurements Doppler Measurements 2D NL Values Aortic | | MitralLVID(d) 4.31 (3.5-5.7cm) Max Haim 1.23 Peak E 0.93 cm | | m/s m/sLVID(s) 2.31 Mean grad | | 3.5 Peak A 0.84 cm mmHg | | m/sIVS(d) 1.05 (0.6-1.1cm) LVOT Haim 0.99 E/A Ratio 1.11 cm | | m/sLVPW(d) 1.08 (0.6-1.1cm) LVOT VTI 0.217 TDI (E/e') 8.4 | | cm mLA A/Ps 2D 4.09 (2.7-3.9cm) LVOT Diam 2.13 MV mn gd | | cm cmLA vol A/L 26.3 (16-34) LVOT SV 32.3 | | MR EROindex ml/m | | indexed ml/m | | LA vol MOD 58.7 (40-73ml) Tricuspid PulmonicBP ml TR | | Vmax PV Vmax 1.0LA vol MOD 24.7 (16-34) | | m/sindex ml/m | | LVEDV 38.69 Aorta: Index:index ml/m | | Ao Sinus 3.32 (2.1-3.5cm)Biplane EF 65.6 % cm | | Asc Ao 2.88 (prox) | | cmEvaluation of chamber size and geometry is accomplished through the incorporation of | | linear, volumetric, and indexed values Report electronically signed by: [id number] Kostas | | Horacio GRIMES (05/15/2020, 12:14:18 PM) Final | |regurgitation. | |Pulmonic Valve: The pulmonic valve is structurally normal. | |Aorta: Visualized portions of the ascending aorta and aortic root appear normal. | |Venous: Inferior vena cava is normal with normal inspiratory collapse. | |Pericardium: No pericardial effusion is seen. | | | |Additional Findings: There are no prior exams. | |2D Measurements Doppler Measurements | | | | 2D NL Values Aortic Mitral | |LVID(d) 4.31 (3.5-5.7cm) Max Haim 1.23 Peak E 0.93 | | cm m/s m/s | |LVID(s) 2.31 Mean grad 3.5 Peak A 0.84 | | cm mmHg m/s | |IVS(d) 1.05 (0.6-1.1cm) LVOT Haim 0.99 E/A Ratio 1.11 | | cm m/s | |LVPW(d) 1.08 (0.6-1.1cm) LVOT VTI 0.217 TDI (E/e') 8.4 | | cm m | |LA A/Ps 2D 4.09 (2.7-3.9cm) LVOT Diam 2.13 MV mn gd | | cm cm | |LA vol A/L 26.3 (16-34) LVOT SV 32.3 MR ERO | |index ml/m indexed ml/m | |LA vol MOD 58.7 (40-73ml) Tricuspid Pulmonic | |BP ml TR Vmax PV Vmax 1.0 | |LA vol MOD 24.7 (16-34) m/s | |index ml/m | |LVEDV 38.69 Aorta: Index: | |index ml/m Ao Sinus 3.32 (2.1-3.5cm) | |Biplane EF 65.6 % cm | | Asc Ao 2.88 | | (prox) cm | |Evaluation of chamber size and geometry is accomplished through the incorporation of | |linear, volumetric, and indexed values | | | |Report electronically signed by: [id number] Kostas Leonard MD (05/15/2020, 12:14:18 PM) | | | | | | | | Final | + + + + + + + | Performing | Address | City/State/Zipcode | Phone Number | | Organization | | | | + + + + + | [facility] | [address] | [place], [place] | | | CARDIOLOGY | [address] | [address] | | + + + + + documented in this encounter Visit Diagnoses + + | Diagnosis | + + | Fabry disease (HCC) Lipidoses | + + documented in this encounter
--- OUTSIDE RECORDS SUMMARY | ~2020-06-09 | XMS | Encounter Summary ---
Demographics + + + | Address | [address] | | | [place] [address] | + + + | Home Phone [...] Author + + + | Author | [facility] | + + + | Organization | [facility] | + + + | Address | Unknown | + + + | Phone | Unavailable | + + + Support + + +---------+ + | Name | Relationship | Address | Phone | + + +---------+ + | John Miguel | ECON | Unknown | | + + +---------+ + Care Team Providers + +------+ + | Care Sap Pp Consultant Name | Role | Phone | [...] [id number] | | | | | | [place], [place] | | | | | | [address] | | | | | | [phone] | | | +--------+ + + + [...]
--- OUTSIDE RECORDS SUMMARY | ~2020-06-09 | XMS | Encounter Summary ---
Demographics + + + | Address | [address] | | | [place] [address] | + + + | Home Phone [...] + + + | Author | [facility] | + + + | Organization | [facility] | + + + | Address | Unknown | + + + | Phone | Unavailable | + + + Support + + +---------+ + | Name | Relationship | Address | Phone | + + +---------+ + | John Enrique | ECON | Unknown | | + + +---------+ + Care Team Providers + +------+ + | Care Steam Hoist Operator Name | Role | Phone | + +------+ + PCP | Unavailable | + +------+ + Encounter Details +--------+ + + + + | Date | Type | Department | Care Team | Description | +--------+ + + + + | 09/24/ | Office | [facility] | Consult, [facility] | Progress Note | | 2005 | Visit-Trans | | | | | [...] as of this encounter Progress Notes Interface, Bulk Tank Driver In - 04/14/2005 12:50 AM PDT [id number] 09/24/2004 [id number] [facility] Clinic Date: 09/24/2004 Clinic Name Metabolics Discipline Metabolism I spoke with her flavor tank tender, John Mckeon. I told him I definitely do not think she should get ERT during . I told him she is definitely affected. I recommended an echo. I sent him info on Fabry for him to read, including the Anjum Phillip and Sabina ISAACS, et al article. Fawad Muhammad MD [facility] Department of Pediatrics Head--Division of Metabolism [address]--[place] [address] PH# FAX# email:[email or web address] KOKO/marie P C: 09/25/2004 dlg documented i n this encounter Plan of [...]
--- OUTSIDE RECORDS SUMMARY | ~2020-06-09 | XMS | Encounter Summary ---
Demographics + + + | Address | [address] | | | [place] [address] | + + + | Home Phone [...] Team Providers + +------+ + | Care Denture Finisher Name | Role | Phone | + +------+ + | Mikki Barajas MD | PCP | | + +------+ + Reason for Visit + +--------+ + | Reason | Onset | Comments | | | Date | | + +--------+ + | Medical Records | 10/21/ | | | Review | 2020 | | + +--------+ + Encounter Details +--------+ + + + + | Date | Type | Department | Care Team | Description | +--------+ + + + + | 10/21/ | Abstract | Digestive Health | Clinic, Surgery | Medical Records | | 2020 | | Center at [facility] [address] | | Review | | | | [address] [facility] | | | | | | for Health and | | | | | | [facility] [address] | | | | | | [place], [place] | | | | | | [address] | | | | | | [phone] | | | +--------+ + + + [...]
--- OUTSIDE RECORDS SUMMARY | ~2020-06-09 | XMS | Encounter Summary ---
Demographics + + + | Address | [address] | | | [place] [address] | + + + | Home Phone [...] Team Providers + +------+ + | Care Cooker Helper Name | Role | Phone | + +------+ + | Lexx Estiven | PCP | | + +------+ + Encounter Details +--------+ + + + + | Date | Type | Department | Care Team | Description | +--------+ + + + + | 09/03/ | Telephone | [facility] [address]th | Shaina Barrett | | | 2016 | | Floor [address] | | | | | [address] Mailcode: [facility] | | | | | | [facility] [place], [place] | | | | | | [address] | | | | | | [phone] | | | +--------+ + + + [...]
--- OUTSIDE RECORDS SUMMARY | ~2020-06-09 | XMS | Encounter Summary ---
Demographics + + + | Address | [address] | | | [place] [address] | + + + | Home Phone [...] Team Providers + +------+ + | Care Loss Prevention Auditor Name | Role | Phone | + +------+ + | Mikki Barajas MD | PCP | | + +------+ + Reason for Referral Diagnostic Testing (Routine) +--------+--------+ + + + + | Status | Reason | Specialty | Diagnoses / | Referred By | Referred To | | | | | Procedures | Contact | Contact | +--------+--------+ + + + + | Closed | | Cardiology | Diagnoses | Deidre Nguyen, | Car Echo | | | | | Shadi | [address] | [facility] [address] | | | | | disease in | [address]xton Davin | [address] | | | | | heterozygous | Jamia Isaacs | [facility] for | | | | | female | [place], [place] | Health and | | | | | ([facility]) | [address] | Healing, | | | | | Procedures | Phone: | Building 1 | | | | | TRANSTHORACI | [phone] | [facility] [place] | | | | | C | Fax: | [address] | | | | | ECHOCARDIOGR | [phone] | Phone: | | | | | AM, ADULT | | [phone] | +--------+--------+ + + + + Reason [...] + | Closed | | Medical | Diagnoses | Lexx, | Mge | | | | Genetics | Shadi | DO Estiven | Metabolic Dch | | | | | (-elaine) | [facility] | [address] | | | | | disease | [facility] [address] | | | | | Procedures | Internal | [place] | | | | | CT EST | Medicin | Children's | | | | | PATIENT | [address] | [facility] 7th | | | | | LEVEL V | [address] | Floor | | | | | | [place], | [place], [place] | | | | | | [place] [address] | [address] | | | | | | Phone: | Phone: | | | | | | [phone] | [phone] | | | | | | Fax: | Fax: | | | | | | [phone] | [phone] | +--------+--------+ + + + + Encounter Details +--------+---------+ + + + | Date | Type | Department | Care Team | Description | +--------+---------+ + + + | 07/06/ | Office | Metabolic Genetics | Deidre Nguyen MD | Fabry disease in | | 2019 | Visit | at [facility] | [address] | heterozygous female | | | | [address] | Jamia Isaacs [place], | ([facility]) (Primary Dx); | | | | Joseph[place] | [place] [address] | Port-A-Cath in place | | | | [facility] | [phone] | | | | | 7th Floor [place], | | | | | | [place] [address] | | | | | | [phone] | | | +--------+---------+ + + + [...] encounter Progress Notes Deidre Nguyen MD - 07/06/2019 11:00 AM PDT REFERRING PROVIDER: Estiven Hallman DO [facility] Internal Medicin [address] [place] [address] PRIMARY CARE PROVIDER: Mikki aBrajas MD REASON FOR VISIT: Chief Complaint Patient presents with Follow-up visit HPI and PMH: GLA Genotype: [id number] Date of Diagnosis: 2002 On ERT? Yes, started prior to 2006, then stopped for , and restarted after 2009 Infusion Location: [facility] Port-a-cath? Yes, R upper chest, catheter thru internal jugular Date of Last Evaluation: 10/2017 and 06/2018 Jarvis Miguel is a 39 y.o. 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 She feels fatigue is the most overwhelming symptom for her currently. She is getting IV Fabrazyme every 2 weeks at an infusion center near home. She used to do this through home infusion but with her son requiring infusions, this is a better schedule f or them both to be infused together. She reports discomfort and pain with infusion feeling it up her neck. Prior port was placed on the L side x 8 yrs and was not bothersome. Since her last evaluation, the patient reports no hospitalization, interval visits to the E R. 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 Has been placed back o n metformin for diabetes and this makes her stools watery. However, overall, she's lost 60 l bs. She's in pre-bariatric surgery clinic classes. She also has a new PCP. Disease specific history by systems: Acroparesthesia: She feels them along her feet, hands, legs, lower back, worse w/ heat and exercise. Stay in bed all day for pain 7-8. She used to be on opiods for this, then Lyrica. Gabapentin an d Lyrica did not help, and the rest just made her drowsy. She feels amitriptyline helps w/ h er sleep, not really w/ the pain. Currently, she just tries to rest as her management. Audiological: Both ears w/ tinnitus and muffled sounds. Has not been evaluated by audiology. Cardiac: No echocardiogram for many years. Last echo was 2009 and was reportedly normal, done wh en she was at 24 weeks. Has SOB, CP, palpipations during exertion, or sometimes w/ CP out of the blue Gastrointestinal: Watery stool, worse on metformin. She was followed by bariatric surgery group in 2016, then stopped, then resumed Jun 2018 . She trying to keep up w/ it. Hypohidrosis: She feel she sweats less than other women Neurological: Headaches daily (takes Tylenol, Motrin) Fatigue daily. She has problem falling sleep, despite taking Benadryl and melatonin, ho wever, with amitriptyline it's better Has never had a stroke or TIA Prescriber: Dr. Tee Mehta Pulmonary: When very active, she gets SOB from fatigue; if she paces herself, she's fine. No need for inhalers. She reports she has obstructive sleep apnea, and is supposed to get CPAP but this has no t happened yet. Renal: No protein on dipstick in 2016. She had intermittent proteinuria that would resolve. L ast urine microalbumin/creatinine was elevated in Jun 2018. Other Medical History: Diabetes type II GERD Obesity HTN MICAH Last Labs: ? Date: 06/16/2018 Urine GL3 BQL Plasma GL3 2 ug/mL Plasma lyso-GL3 BQL Anti-GLA AB neg HOSPITALIZATIONS: none in past [...] to be moved CURRENT MEDICATIONS: Current Outpatient Medications Medication Sig acetaminophen 325 mg Oral tablet Take 325 mg by mouth every four hours as needed. 2 tab s daily for headaches. Indications: HEADACHE DISORDER Agalsidase Beta (FABRAZYME) 35 mg intravenous recon soln Inject 140 mg into the vein (I V) every fourteen days. Indications: Fabry Disease amitriptyline 25 mg Oral Tablet 100 mg by mouth once daily at bedtime. cholecalciferol (Vitamin D3) (VITAMIN D3) 2,000 unit oral capsule Take 1 capsule by keith th once daily. ergocalciferol 50,000 unit oral capsule Take 1 capsule by mouth every seven days. For 1 2 weeks Indications: Vitamin D Deficiency (High Dose Therapy) hydrOXYzine pamoate 50 mg oral capsule Take 50 mg by mouth as needed. insulin glargine 100 unit/mL subcutaneous solution Inject 45 Units under the skin (SUBC ) once daily in the morning. JANUVIA 100 mg oral tablet Take 100 mg by mouth once daily. LATUDA 120 mg oral tablet 120 mg once daily. NOVOLOG U-100 INSULIN ASPART 100 unit/mL subcutaneous solution omeprazole 20 mg oral capsule,delayed release(DR/EC) Take 20 mg by mouth once daily at bedtime. prazosin 2 mg oral capsule Take 2 mg by mouth once daily at bedtime. propranolol 40 mg oral tablet Take 40 mg by mouth three times daily. VICTOZA 2-DESTINEE 0.6 mg/0.1 mL (18 mg/3 mL) subcutaneous pen injector Inject 1.8 mg under the skin (SUBC) once daily at bedtime. ALLERGIES: Allergies Allergen Reactions Augmentin [Amoxicillin-Pot Clavulanate] Nausea and Vomiting rash Doxycycline Rash Clarification Needed PEN V K Sulfa (Sulfonamide Antibiotics) ROS: Medications, allergies, medical, surgical history were reviewed by me at this visit ut [facility] clinic's patient history form. Pertinent positives are [...] Cancer Maternal Grandmother Prostate Cancer Maternal Grandfather SOCIAL HX: Jarvis lives with her partner and son. VITALS: Wt 153.9 kg (339 lb 4.6 oz), BP 131/82, Pulse 102, BMI 57.57 kg/(m^2). PHYSICAL EXAM: General appearance: obese Head: Normocephalic, with normal hair texture and distribution. Neck: supple; R internal jugular catheter felt Face: symmetrical Eyes: EOMs Ears: External ears normally formed and placed. Oropharynx: Normal dentition for age. Mucous membranes moist. Chest: Breath sounds are equal & clear; work of breathing is normal. Heart: No murmurs present, regular rate & rhythm; precordium quiet. Abdomen: soft, rounded, no palpable masses, limited by obesity Extremities: Normal range of motion. Mild non-pitting pedal edema Neurologic: CN grossly normal. Normal neuromuscular tone for patient state and age. Normal strength and gait. 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 She has not had an echocardiogram for many years, th ough she has been treated on ERT more consistently since 2009. She's had history of intermi ttent proteinuria, w/ microalbumin/cr ratio elevated at last visit. She is actively trying to lose weight, but has had worsening diabetes. For her complaint of catheter discomfort along neck, I ordered a CXR to check placement, bu t recommend she goes back to her surgeon to see if the catheter can be anatomically placed e lsewhere that causes less discomfort for her. She would still rather have a port than a PIV . 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 For this reason, patients with Michael ry disease are at risk for microvascular occlusions, acroparesthesia and gut paresthesias, h earing loss, hypohydrosis, arrhythmias, valvular heart disease, cardiomyopathy, renal diseas e, and stroke. While it is X-linked, females can have variable symptoms, from little to no s ymptoms, attenuated disease, to full Fabry manifestations. Genetic and enzyme testing is gen erally not predictive of a female patient s severity. She knows to continue on Fabrayzme for this condition, the only FDA-approved drug in the [place] for the treatment of Fabry disease for her mutation. Her mutation is not amenable to the new oral drug. I stressed compliance of this drug every 2 weeks so that we do not allow th e lysosomal storage of GL3 to be built back up after the slow reduction over the course of m any years on ERT. In addition, we discussed that symptoms of her chronic medical conditions such as diabetes, hypertension, and hyperlipidemia may overlap with Fabry disease symptoms. Therefore, one of the main goals in Fabry management is to maintain these conditions under control to prevent exacerbation of her symptoms. I encouraged her to continue w/ her pre-bariatric surgery cla sses; this in turn will help improve her diabetes, as well as her Fabry disease pain. For upcoming bariatric surgery if planned, I would want to get an echocardiogram beforehand . I will order this for her at [facility] as she has not gotten this done locally. We also briefly discussed the rare disease registry, but family is in a dixno at this visit. Can revisit at next visit. PLAN: - Ordered CXR to check port placement - Ordered EKG and echo - Continue IV Fabrazyme at 1 mg/kg every 2 weeks - Labs today: urine GL3, urine microalb/cr urine protein/cr, plasma lyso-GL3, and Fabrazyme AB FOLLOW UP: follow-up in 1 year or sooner if there are concerns. Deidre Nguyen MD [facility] [address] [place] [address] documented in this encounte r Plan of Treatment +--------+ + + + + | Date | Type | Specialty | Care Team | Description | +--------+ + + + + | 06/05/ | Procedure | Surgery | | | | 2021 | Pass | | | | +--------+ + + + + + +------+--------+ + + | Name | Type | Priori | Associated Diagnoses | Order Schedule | | | | ty | | | + +------+--------+ + + | TRANSTHORACIC | ECG | Routin | Fabry disease in | Ordered: 07/06/2019 | | ECHOCARDIOGRAM, | | e | heterozygous female | | | ADULT | | | (HCC) | | + +------+--------+ + + | 12 LEAD ECG | ECG | Routin | Fabry disease in | Ordered: 07/06/2019 | | | | e | heterozygous female | | | | | | (HCC) | | + +------+--------+ + + documented as of this encounter Results X-RAY CHEST 1 VIEW (07/06/2019 12:00 PM PDT) + + | Specimen | + + | | + + + + + | Narrative | Performed At | + + + | EXAM: CHEST 1 VIEW HISTORY: Check subcutaneous port placement | [facility] | | COMPARISON: None. FINDINGS: A right internal jugular | RADIOLOGY VOICE | | central venous catheter is present with the tip terminating in the | RECOGNITION 2 | | upper SVC. Mild right basilar atelectasis is noted. The lungs are | | | otherwise clear without focal consolidation or pulmonary edema. The | | | cardiomediastinal contour is normal. There is no pleural effusion or | | | pneumothorax. No acute osseus abnormality is noted. IMPRESSION: | | | Right internal jugular central venous catheter tip terminates in the | | | upper SVC. No pneumothorax. Mild right basilar atelectasis. | | | Otherwise clear lungs. I have personally reviewed the images and, | | | if necessary, edited the report. I agree with the report as now | | | presented. Final signature: Nilda Robin MD 07/06/2019 | | | 3:21 PM Preliminary: Nilda Robin MD Dictation | | | initiated: Nilda Robin MD 07/06/2019 3:20 PM | | + + + + + | Procedure Note | + + | Service Account, Radiant Res In Interface - 07/06/2019 3:22 PM PDT EXAM: CHEST 1 | | VIEW HISTORY: Check subcutaneous port placement COMPARISON: None. FINDINGS: A right | | internal jugular central venous catheter is present with the tip terminating in the | | upper SVC. Mild right basilar atelectasis is noted. The lungs are otherwise clear | | without focal consolidation or pulmonary edema. The cardiomediastinal contour is normal. | | There is no pleural effusion or pneumothorax. No acute osseus abnormality is noted. | | IMPRESSION: Right internal jugular central venous catheter tip terminates in the upper | | SVC. No pneumothorax. Mild right basilar atelectasis. Otherwise clear lungs. I have | | personally reviewed the images and, if necessary, edited the report. I agree with the | | report as now presented. Final signature: Nilda Robin MD 07/06/2019 3:21 PM | | Preliminary: Nilda Robin MD Dictation initiated: Nilda Robin MD | | 07/06/2019 3:20 PM | | | |Right internal jugular central venous catheter tip terminates in the upper SVC. No pneumoth orax. | | | |Mild right basilar atelectasis. Otherwise clear lungs. | | | |I have personally reviewed the images and, if necessary, edited the report. I agree with th e report as now presented. | | | |Final signature: Nilda Robin MD 07/06/2019 3:21 PM | |Preliminary: Nilda Robin MD | |Dictation initiated: Nilda Robin MD 07/06/2019 3:20 PM | + + + +---------+ + + | Performing | Address | City/State/Zipcode | Phone Number | | Organization | | | | + +---------+ + + | [facility] | | | | | VOICE RECOGNITION 2 | | | | + +---------+ + + CREATININE, URINE (07/06/2019 11:44 AM [...] | + + + + + | [facility] | [address] | [place] [address] | | | SERVICES, CORE | JAMIA [...] Normal values based on 24 hour | [facility] | | collection interval. Patient results are calculated from actual | | | collection interval and volume. | | + + + + + + + + | Performing | Address | City/State/Zipcode | Phone Number | | Organization | | | | + + + + + | [facility] | [address] | [place] [address] | | | [facility] | [address] | | | + + + + + ALBUMIN URINE, RANDOM (07/06/2019 11:44 AM PDT) [...] | + + + + + | [facility] | [address] | [place] [address] | | | SERVICES, CORE | JAMIA [...] [facility] | | | LAB NAME | By:[employer] | | REFERENCE | | | | Michell Armenta, | | LAB | | | | [place] [address] | | | | + + + [...] | + + + + + | [facility] | | | | + + + + + | [facility] | [address] | [place] [address] | | | SERVICES, CORE | [address] | | | + + + + + | [facility] | see below | | [...] | LAB | | | | [place] [address] | | | | + + + [...] | + + + + + | [facility] | [address] | [place] [address] | | | SERVICES, CORE | [address] | | | + + + + + | [facility] | see below | | | + + + + + documented in this encounter Visit Diagnoses + + | Diagnosis | + + | 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
--- OUTSIDE RECORDS SUMMARY | ~2020-06-09 | XMS | Encounter Summary ---
Demographics + + + | Address | [address] | | | [place] [address] | + + + | Home Phone [...] Author | [facility] | + + + | Organization | [facility] | + + + | Address | Unknown | + + + | Phone | Unavailable | + + + Support + + +---------+ + | Name | Relationship | Address | Phone | + + +---------+ + | John Miguel | ECON | Unknown | | + + +---------+ + Care Team Providers + +------+ + | Care Instrument Adjuster Name | Role | Phone | + [...] [facility] | | | | Metabolic | 03/29/14 | Epic Dept | Metabolic | | | | | [place] | | [address] | | | | | | | St | | | | | | | Mailcode: | | | | | | | [facility] | | | | | | | [place], [place] | | | | | | | [address] | | | | | | | Phone: | | | | | | | [phone] | | | | | | | Fax: | | | | | | | [phone] | +--------+--------+ + + + + Encounter Details +--------+---------+ + + + | Date | Type | Department | Care Team | Description | +--------+---------+ + + + | 03/29/ | Office | [facility] at [facility] 7th | Butch Rodriguez MD | Fabry disease (HCC) | | 2013 | Visit | Floor [address] | [address] [facility] | (Primary Dx) | | | | St Mailcode: [facility] | [facility] | | | | | [facility] [place], [place] | [place], [place] | | | | | [address] | [address] | | | | | [phone] | [phone] | | | | | | | [...] + + + | Blood Pressure | 119/71 | 03/29/2014 1:11 PM | | | | | PDT | | + + + + + | Pulse | 73 | 03/29/2014 1:11 PM | | | | | PDT [...] + + + + | Weight | 151.1 kg (333 lb 1.8 | 03/29/2014 1:11 PM | | | | oz) | PDT | | + + + + + | Height | - | - | | + + + + + | Body Mass Index | 57.57 | 11/24/2012 1:06 PM | | | | | PDT | | + + + + + documented in this encounter Progress Notes Butch Rodriguez MD - 03/30/2014 3:57 PM PDT Mrs. Miguel is a 34 y.o. Female with Fabry disease and multiple medical problems. She comes in for routine f/u and has brought along her 4 y.o. Son, who has the genetic defect but is still assymptomatic. Mrs. Miguel is on ERT which she receives every 2 weeks and tolerates we ll. Her list of problems is long. Some of the issues are probably directly due to her Fabry dis ease, others may be unrelated. Her overall energy level has significantly improved since ERT was restarted about one year ago. The main issues today include: - Insomnia. She has much difficulty falling asleep and sleeping through. Sleep problems are not a known primary symptom of Fabry's but could be related to her chronic pain. - Burning pain in her hands and feet. ERT has helped this to some degree, but the warm summ er weather has intensified the problem. - Abdominal pain and diarrhea: she reports continuous cramping pain in the epigastrium and 4 water stools per day. Mrs. Miguel has a new primary care provider who sees her every 3 weeks and works on her [employer] list. Review of systems: Current Outpatient Prescriptions on File Prior to Visit Medication Sig Dispense Refill acetaminophen 325 mg Oral tablet Take 325 mg by mouth every four hours as needed. 2 tab s daily for headaches. Indications: HEADACHE DISORDER Agalsidase Beta (FABRAZYME) 35 mg Intravenous Recon Soln Inject 70 mg into the vein (IV ). Indications: Fabry Disease ALPRAZolam 1 mg Oral tablet Take 1 mg by mouth two times daily. amitriptyline 25 mg Oral Tablet Take 25 mg by mouth once daily at bedtime. buPROPion SR 150 mg Oral tablet extended release Take 150 mg by mouth three times daily . L-Methylfolate (DEPLIN) 15 mg Oral Tablet Take 15 mg by mouth once daily. LORazepam 1 mg Oral tablet Take 1 mg by mouth every four hours as needed. MELOXICAM (MOBIC ORAL) Take by mouth. omeprazole (PRILOSEC) 40 mg Oral capsule,delayed release(DR/EC) Take 40 mg by mouth thr ee times daily. ondansetron 8 mg Oral tablet Take 8 mg by mouth. oxyCODONE, immediate release, 5 mg Oral tablet Take 5 mg by mouth every six hours as ne eded. For Fabry pain episodes. 2-3 weekly as needed. Indications: Neuropathic Pain prazosin 1 mg Oral Capsule Take 1 mg by mouth once daily. promethazine 25 mg Oral Tablet Take 25 mg by mouth two times daily. traZODone 100 mg Oral Tablet Take 100 mg by mouth once daily at bedtime. ziprasidone (GEODON) 80 mg Oral Capsule Take 80 mg by mouth two times daily with meals. No current facility-administered medications on file prior to visit. Diet: Normal diet. Neurological: Burning pain in hands and feet, consistent with FD parasth esias. No seizures, no muscle cramps, no head-aches. Respiratory:no dyspnea, cough. GI: 3-4 watery stools/day described as diarrhea. : No dysuria, normal frequency of urination. Nor mal urine color. Skin: No hair loss, no itching, no rashes. No increased bruising. Musculosk eletal: No cramping. Vision: normal vision. Hearing: no impairment. Sleep: insomnia, current ly refractory to medication. Melatonin does not help. Energy level/ability to work:moderate. Physical exam: Wt 151.1 kg (333 lb 1.8 oz), BP 119/71, Pulse 73, BMI 57.58 kg/(m^2). Obese patient in no acute distress. Normocephalic. Eyes: Extraocular movements intact. Pupi ls equally reactive to light and accomodation. No coloboma. Ears: Normal. Oropharynx: clear. Normal dentition. Neck: supple, no adenopathy, no masses. Lungs: clear. Heart: Regular rate and rhythm, no murmurs, normal pulses. Abdomen: Mildly tender, particularly in epigastric r egion. No hepatosplenomegaly, no masses although evaluation difficult due to obesity. : de ferred Skin: clear. No angiokeratomas detected. Hair: normal consistency. No abnormal crease s. Musculoskeletal: Full range of motion in all joints, no contractures, normal strength, no rmal bulk, no tenderness. Neurological exam: Normal cognition. Cranial nerves intact. Deep t endon reflexes 2+ in the upper and lower extremity. Normal gait. No tremors. Assessment: Fabry disease on ERT. Many of her symptoms are refractory to the enzyme. Her pain has not d isappeared, but also has not worsened. Her energy level, overall wellbeing may have slightly improved. There is no evidence for renal or cardiac dysfunction at this time. She clearly needs to continue the enzyme replacement therapy to avoid further worsening of her disease. Her abdominal and extremity pain need to be managed by her primary care provide r. As visit to a repair table operator may also be warranted. There may be medications that cou ld alleviate her diarrhea and abdominal discomfort. Plan: 1) CBC and metabolic panel today 2) Refer back to PCP for symptom management 3) Continue ERT at current dose 4) RTC in one year. BUTCH RODRIGUEZ MD [facility] [address]TH [address] [place] [address] Mailcode: [place] [address] documented in this enc ounter Procedure Jamil Luna - 06/22/2014 8:46 AM PDTAssociated Order(s): ORDERS OTHERElectronically sig corinne by Faculty Other at 06/22/2014 8:46 AM PDTdocumented in this encounter Miscellaneous Notes Scan - Luzmaria Faculty - 07/08/2014 6:35 AM PDTElectronically signed by Jamil Dutta at 6:35 AM PDTdocumented in this encounter Plan of [...] + + | ORDERS OTHER | | 03/29/2014 | | Results for this | | | | 12:00 AM | | procedure are in the | | | | PDT | | results section. | + +--------+ + + + documented in this encounter Results COMPLETE METABOLIC SET (NA,K,CL,CO2,BUN,CREAT,GLUC,CA,AST,ALT,BILI TOTAL,ALK PHOS,ALB,PROT TOTAL) [...] | | | LABORATORY | | | [facility] | | | SERVICES, | | | [...] | + + + + + | [facility] | [address] | [place] [address] | | | SERVICES, CORE | [address] | | | + + + + + ORDERS OTHER (03/29/2014 12:00 AM PDT) + + + | Narrative | Performed At | + + + | | | | | | + + + + + | Procedure Note | + + | Jamil Dutta - 06/22/2014 8:46 AM PDT | + + documented in this encounter Visit Diagnoses + + | Diagnosis | + + | Fabry disease (HCC) - Primary Lipidoses | + + documented in this encounter"
--- OUTSIDE RECORDS SUMMARY | ~2020-06-09 | XMS | Encounter Summary ---
Demographics + + + | Address | [address] | | | [place] [address] | + + + | Home Phone [...] Team Providers + +------+ + | Care Community Leader Name | Role | Phone | + +------+ + | Christina Rain MD | PCP | | + +------+ + Encounter Details +--------+ + + + + | Date | Type | Department | Care Team | Description | +--------+ + + + + | 04/23/ | Telephone | [facility] at [facility] 7th | Fawad Muhammad, | | | 2010 | | Floor [address] | | | | | St Mailcode: [facility] | | | | | | [facility] [place], [place] | | | | | | [address] | | | | | | [phone] | | | +--------+ + + + [...] this encounter Miscellaneous Notes Telephone Encounter - Yan Rogel - 04/25/2011 10:24 AM PDT04/23/11 Faxed notes and labs to Marge Newton RN. elephone EncXenia Lee - 04/23/2011 3:17 PM PDTPt called. Had phone hearing today. (Family care/insurance. Surinder Newton RN). They are denying fabryzyme. States it will remain open until the . Attn: Ashley Newton RN Fax: Need documentation from [facility] about symptoms and diagnosis. Will ask Yan to fax this week documented in this encount er Plan of [...]
--- OUTSIDE RECORDS SUMMARY | ~2020-06-09 | XMS | Encounter Summary ---
Demographics + + + | Address | [address] | | | [place] [address] | + + + | Home Phone | | + + + | Preferred Language | Unknown | + + + | Marital Status | Single | + + + | Orthodox Affiliation | Unknown | + + + [...] Team Providers + +------+ + | Care Tour Conductor Name | Role | Phone | + +------+ + | Lexx Estiven | PCP | | + +------+ + Encounter Details +--------+ + + + + | Date | Type | Department | Care Team | Description | +--------+ + + + + | 02/25/ | Documentati | Digestive Health | Kathleen Canchola, | | | 2017 | on | Center at [facility] [address] | ACNP [address] | | | | | [address] | [address] [facility] [place] | | | | | for Health and | [address] | | | | | [facility], [address] | [phone] | | | | | [place], [place] | | | | | | [address] | | | | | | [phone] | | | +--------+ + + + [...]
--- OUTSIDE RECORDS SUMMARY | ~2020-06-09 | XMS | Encounter Summary ---
Demographics + + + | Address | [address] | | | [place] [address] | + + + | Home Phone [...] Providers + +------+ + | Care Manager Commercial Sales Name | Role | Phone | + [...] [place] | | | | | | [facility] | | | | | | [address] [facility] | | | | | | Josephine | | | | | | [facility] | | | | | | 7th Floor [place], | | | | | | [place] [address] | | | | | | [phone] | | | +--------+------+ + + + [...] (RANDOM | e | 2:48 PM | (HCC) [...] + + documented in this encounter Results UADHARMESHSTICK ONLY (01/22/2011 2:48 PM PDT) + + [...] DEPARTMENT OF | [address] | [place] [address] | | | PATHOLOGY | [address] [...] | + + + + + | [facility] | [address] | [place] [address] | | | PATHOLOGY | [address] [...] At | + + + | [facility] | [facility] | | [place] [address] [facility], [place] | REGIONAL | | [address] | LABORATORY | + + + + + + + + | Performing | Address | City/State/Zipcode | Phone Number | | Organization | | | | + + + + + | [facility] | [address] [place] [address] | | | LABORATORY | | | [...] + + + + + | [facility] DEPARTMENT | [address] | [place] [address] | | | PATHOLOGY | [address] [...] | | | DEPARTMENT | | | [place] | | | OF | | | [...] | + + + + + | [facility] | [address] | [place] [address] | | | PATHOLOGY | [address] [...] + + + + + | [facility] DEPARTMENT OF | [address] | [place] [address] | | | PATHOLOGY | [address] | | | + + + + + documented in this encounter Visit Diagnoses + + | Diagnosis | + + | Fabry disease (HCC) Lipidoses | + + documented in this encounter"
--- OUTSIDE RECORDS SUMMARY | ~2020-06-09 | XMS | Encounter Summary ---
Demographics + + + | Address | [address] | | | [place] [address] | + + + | Home Phone [...] Providers + +------+ + | Care Hide Salter Name | Role | Phone | + [...] Referral To | | 2016 | | Center at [facility] [address] | | Bariatric Surgery | | | | [address] [facility] | | | | | | for Health and | | | | | | [facility], [facility] 2 | | | | | | [place], [place] | | | | | | [address] | | | | | | [phone] | | | +--------+ + + + [...]
--- OUTSIDE RECORDS SUMMARY | ~2020-06-09 | XMS | Encounter Summary ---
Demographics + + + | Address | [address] | | | [place] [address] | + + + | Home Phone [...] + + + | Author | [facility] | + + + | Organization | [facility] | + + + | Address | Unknown | + + + | Phone | Unavailable | + + + Support + + +---------+ + | Name | Relationship | Address | Phone | + + +---------+ + | John Miguel | ECON | Unknown | | + + +---------+ + Care Team Providers + +------+ + | Care Professor Of Business Name | Role | Phone | + +------+ + | Estiven Hallman DO | PCP | | + +------+ + Reason for Visit + +--------+ + | Reason | Onset | Comments | | | Date | | + +--------+ + | Symptom Management | 04/25/ | | | | 2013 | | + +--------+ + Encounter Details +--------+ + + + + | Date | Type | Department | Care Team | Description | +--------+ + + + + | 04/25/ | Telephone | [facility] at [facility] 7th | Benny Hernandez MD | Symptom Management | | 2013 | | Floor [address] | [address] | | | | | St Mailcode: [facility] | Davin Alfonso | | | | | [facility] [place], [place] | [place], [place] | | | | | [address] | [address] | | | | | [phone] | [phone] | | | | | | | [...] this encounter Miscellaneous Notes Telephone Encounter - Benny Hernandez MD - 04/25/2014 2:49 PM Jeanine called because she is having more difficulty with pain and paresthesias. During the past month she says her s ymptoms have gotten significantly worse, including severe sharp pains in her feet that shoot s up her legs when walking. Pain always present but gets worse when she takes her first vincent ps. Fabrazyme had been helping but not so much lately. She also reports continued diarrhea and abdominal symptoms. Jarvis said she gets relief from her symptoms after her Fabrazyme infusions, but after aroun d 10 days she is very tired and her pain is worse. She does not want to take any pain medic ation that would cause sedation due to having a 4 year old child to care for. Plan: Her current dose of Fabrazyme is 70 mg every two weeks, which is 0.5 mg/kg. The rossi dard dose is 1.0 mg/kg so I suggested we could increase her Fabrazyme and see whether her sy mptoms improved. documented in this enc ounter Plan of [...]
--- OUTSIDE RECORDS SUMMARY | ~2020-06-09 | XMS | Encounter Summary ---
Demographics + + + | Address | [address] | | | [place] [address] | + + + | Home Phone [...] Team Providers + +------+ + | Care Optical Mechanic Apprentice Name | Role | Phone | + +------+ + | Lexx Estiven | PCP | | + +------+ + Reason for Visit + +--------+ + | Reason | Onset | Comments | | | Date | | + +--------+ + | Refill Request | 08/28/ | | | | 2017 | | + +--------+ + Encounter Details +--------+--------+ + + + | Date | Type | Department | Care Team | Description | +--------+--------+ + + + | 08/28/ | Refill | [facility] at [facility] 7th | Shaina Barrett | Refill Request | | 2017 | | Floor [address] | | | | | Mailcode: [facility] | | | | | | [place], [place] | | | | | | [address] | | | | | | [phone] | | | +--------+--------+ + + + [...] Telephone Encounter - Shaina Barrett FNP - 08/28/2017 6:11 PM PSTFAXed reviewed, andrey roved and signed orders to [facility]. See scanned document for details. Infusion of Fabrazyme 140 mg in 200 ML NS over 1.5 hours. Plan of care from 07.25.17 to 01.22.2018 Shaina Barrett, NICHOLE, MPH, EMPLOYEE COMMUNICATIONS SPECIALIST- Nurse Practitioner, [facility]abolic Clinic documented in th [...]
--- OUTSIDE RECORDS SUMMARY | ~2020-06-09 | XMS | Encounter Summary ---
Demographics + + + | Address | [address] | | | [place] [address] | + + + | Home Phone [...] + + + | Author | [facility] | + + + | Organization | [facility] | + + + | Address | Unknown | + + + | Phone | Unavailable | + + + Support + + +---------+ + | Name | Relationship | Address | Phone | + + +---------+ + | John Miguel | ECON | Unknown | | + + +---------+ + Care Team Providers + +------+ + | Care Parking Lot Manager Name | Role | Phone | + +------+ + | Mikki Barajas MD | PCP | | + +------+ + Encounter Details +--------+ + + + + | Date | Type | Department | Care Team | Description | +--------+ + + + + | 04/28/ | MyChart | Digestive Health | Eber Cho, | RE:Follow up | | 2020 | Encounter | Center at [facility] [address] | [address] | | | | | [address] | [facility] [place] | | | | | for Health and | [address] | | | | | [facility], [address] | [phone] | | | | | [place], [place] | | | | | | [address] | | | | | | [phone] | | | +--------+ + + + [...]
--- OUTSIDE RECORDS SUMMARY | ~2020-06-09 | XMS | Encounter Summary ---
Demographics + + + | Address | [address] | | | [place] [address] | + + + | Home Phone [...] Team Providers + +------+ + | Care Rn Acute Name | Role | Phone | + +------+ + | Mikki Barajas MD | PCP | | + +------+ + Encounter Details +--------+ + + + + | Date | Type | Department | Care Team | Description | +--------+ + + + + | 04/17/ | MyChart | Digestive Health | | Pre check in needed | | 2020 | Encounter | Center at [facility] [address] | | | | | | [address] [facility] | | | | | | for Health and | | | | | | Healing, [address] | | | | | | [place], [place] | | | | | | [address] | | | | | | [phone] | | | +--------+ + + + [...]
--- OUTSIDE RECORDS SUMMARY | ~2020-06-09 | XMS | Encounter Summary ---
Demographics + + + | Address | [address] | | | [place] [address] | + + + | Home Phone | | + + + | Preferred Language | Unknown | + + + | Marital Status | Single | + + + | Hoahaoism Affiliation | Unknown | + + + [...] Team Providers + +------+ + | Care Atmospheric Technician Name | Role | Phone | + +------+ + PCP | Unavailable | + +------+ + Encounter Details +--------+ + + + + | Date | Type | Department | Care Team | Description | +--------+ + + + + | 07/01/ | Abstract | [facility] at [facility] 7th | Fawad Muhammad, | | | 2004 | | Floor [address] | | | | | | St Mailcode: [facility] | | | | | | [facility] [place], [place] | | | | | | [address] | | | | | | [phone] | | | +--------+ + + + [...]
--- OUTSIDE RECORDS SUMMARY | ~2020-06-09 | XMS | Encounter Summary ---
Demographics + + + | Address | [address] | | | [place] [address] | + + + | Home Phone [...] Providers + +------+ + | Care Sap Solutions Architect Name | Role | Phone | + +------+ + | Mikki Barajas MD | PCP | | + +------+ + Encounter Details +--------+ + + + + | Date | Type | Department | Care Team | Description | +--------+ + + + + | 04/28/ | Telephone | Metabolic Genetics | Deidre Nguyen MD | | | 2020 | | at [facility] | [address] | | | | | [address] [facility] | Naty Isaacs [place], | | | | | [place] | [place] [address] | | | | | [facility] | [phone] | | | | | [address] [place] [address], | | | | | | [place] [address] | | | | | | [phone] | | | +--------+ + + + [...] this encounter Miscellaneous Notes Telephone Encounter - Deidre Nguyen MD - 04/28/2020 4:35 PM PDTCalled to touch dequan Conley. We were notified that her and her son have not been at infusions for past 2 doses and not m viola appts for future dose. Jarvis updated that her son has COVID and thus they've been avoidi ng the infusion suite. Jarvis herself was tested negative. They were advised by their PCP to not go into infusion until her son is asymptomatic x 2 weeks. Deidre Nguyen MD [facility] Met[facility], [place] [address] documented in this encounte r Plan of [...]
--- OUTSIDE RECORDS SUMMARY | ~2020-06-09 | XMS | Encounter Summary ---
Demographics + + + | Address | [address] | | | [place] [address] | + + + | Home Phone | | + + + | Preferred Language | Unknown | + + + | Marital Status | Single | + + + | Christian Affiliation | Unknown | + + + [...] Team Providers + +------+ + | Care Carbon Sequestration Plant Engineer Name | Role | Phone | + +------+ + | Gavinolizandro Estiven | PCP | | + +------+ + Encounter Details +--------+ + + + + | Date | Type | Department | Care Team | Description | +--------+ + + + + | 02/07/ | Abstract | Digestive Health | Clinic, Surgery | | | 2016 | | [place] [address] [address] | | | | | | [facility] | | | | | | for Health and | | | | | | Healing, [address] | | | | | | [place], [place] | | | | | | [address] | | | | | | [phone] | | | +--------+ + + + [...]
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
--- OUTSIDE RECORDS SUMMARY | ~2020-06-09 | XMS | Encounter Summary ---
Demographics + + + | Address | [address] | | | [place] [address] | + + + | Home Phone [...] Team Providers + +------+ + | Care Candle Pourer Name | Role | Phone | [...] as of this encounter Progress Notes Interface, Automation Specialist In - 04/14/2005 8:23 AM PDT [id number] 04/30/2004 06/14/2004 [id number] IVA ZHU CLINIC DATE: 06/14/2004 CLINIC NAME: Metabolism DISCIPLINE: Metabolics I had a nice talk with Dr. Núñez, Jarvis Miguel's physician [phone]. 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 He agrees she needs treatment. He would be happy to supervise her infusions. He recd a call from "Jef," President of the local [place] Medicaid HMO, who told him this is $20,000 a month and he has no proof of termite exterminator efficacy. I suggested he have Jef call [...] them to me)? thanks, Taurus Muhammad MD Control Integration Engineer Department of Pediatrics Head--Division of Metabolism [address]--[place] [address] # FAX# email:[email or web address] Julianna A documented i n this encounter Plan [...]
--- OUTSIDE RECORDS SUMMARY | ~2020-06-09 | XMS | Encounter Summary ---
Demographics + + + | Address | [address] | | | [place] [address] | + + + | Home Phone [...] Team Providers + +------+ + | Care Casing Runner Name | Role | Phone | + [...] | | | | | | | [place], [place] | | | | | | | [address] | | | | | | | Phone: | | | | | | | [phone] | | | | | | | Fax: | | | | | | | [phone] | +--------+--------+ + + + + Encounter Details +--------+---------+ + + + | Date | Type | Department | Care Team | Description | +--------+---------+ + + + | 12/23/ | Office | [facility] at [facility] 7th | Michell Muhammad, | Fabry disease (HCC) | | 2011 | Visit | Floor [address] Montiel MD | (Primary Dx) | | | | St Mailcode: [facility] | | | | | | [facility] [place], [place] | | | | | | [address] | | | | | | [phone] | | | +--------+---------+ + + + [...] taking Fabrazyme, but has been off the dc dication for a few years. As stated in the last two visits, Jarvis should be restarted on enz yme replacement therapy with FAbrazyme as soon as possible for the treatment of her Fabry di harvey. She is symptomatic with her Fabry disease, with progressively worsening symptoms desc ribed in HPI above. World[employer] shortage is no longer an issue. We will have Shaina Barrett, WHEEL CUTTER, and nurse coordinator in our program contact [...] are glad she will be seeing a surgeon assistant next week, but also urged her to [...] since s he will be restarting medication. terminologist, once Fabrazyme restarted, annual follow up may be enough, especially as patient lives [place] hours drive away in [facility]. WCIHO TAYLOR, PA-C Count Includes [facility] & [place] [address] [facility], [place] [address] MICHELL MUHAMMAD MD Professor, Pediatrics and Molecular and Medical Genetics [facility], [place] [address] Email: [email or web address] documented in this en counter Plan of [...] | + + + + + | [facility] | [address] | [place] [address] | | | PATHOLOGY | [address] [...] | | | DEPARTMENT | | | BELGIAN | | | OF | | | [...] + | [facility] DEPARTMENT OF | [address] | [place] [address] | | | PATHOLOGY | [address] | | | + + + + + UA, COBY ONLY (12/24/2011 3:20 PM PDT) + + [...] + + + + + | [facility] DEPARTMENT OF | [address] | [place] [address] | | | PATHOLOGY | [address] | | | + + + + + CREATININE, URINE (12/24/2011 3:20 PM PDT) + +--------+ + + + | Component | Value | Ref Range | Performed | Pathologist | | | | | At | Signature | + +--------+ + + + | CREATININE | 223.38 | mg/dL | [facility] | | | CONC UR | | [...] | + + + + + | [facility] | [address] | [place] [address] | | | PATHOLOGY | [address] [...] DEPARTMENT OF | [address] | [place] [address] | | | PATHOLOGY | [address] | | | + + + + + documented in this encounter Visit Diagnoses + + | Diagnosis | + + | Fabry disease (HCC) - Primary Lipidoses | + + documented in this encounter"
--- OUTSIDE RECORDS SUMMARY | ~2020-06-09 | XMS | Encounter Summary ---
Demographics + + + | Address | [address] | | | [place] [address] | + + + | Home Phone [...] Team Providers + +------+ + | Care Dredge Pumper Name | Role | Phone | + [...] | 2016 | Visit | Center at [facility] [address] | | BMI of 60.0-69.9, | | | | [address] | | adult (HCC) (Primary | | | | for Health and | | Dx) | | | | [facility], [facility] 2 | | | | | | [place], [place] | | | | | | [address] | | | | | | [phone] | | | +--------+---------+ + + + [...] this encounter Progress Notes Venus Saldana RD, [facility], [place] - 04/04/2017 2:00 PM PDTFormatting of this note might be diff erent from the original. Referring Provider: Estiven Hallman DO Outpatient Nutrition Clinic, Pre-Bariatric Surgery Class Pre-Surgery Class #1 prior to having Nessa-En-Y gastric bypass surgery or Sleeve Gastrectomy . Documented Time of Class: 2:00/3:00 until 3:00/4:00 (60 minutes ppup-tp-pqfk with patient) OBJECTIVE: Height: Ht Readings from [...] or sharing information. Yes Venus Saldana RD, [facility], [place] [facility] Bariatrics [phone] documented in this encounter Plan of Treatment [...]
--- OUTSIDE RECORDS SUMMARY | ~2020-06-09 | XMS | Encounter Summary ---
Demographics + + + | Address | [address] | | | [place] [address] | + + + | Home Phone [...] Team Providers + +------+ + | Care Advertising Analyst Name | Role | Phone | [...] + + + | Closed | | Water Softener Servicer | Diagnoses | Deidre Nguyen, | Ent | | | | | Shadi | [address] | Audiology Ppv | | | | | disease in | Perez Davin | [address] | | | | | heterozygous | [address] | [address] | | | | | female | [facility] [place] | Physician's | | | | | ([facility]) | [address] | Anjali, | | | | | Procedures | Phone: | 2nd floor | | | | | CONSULT TO | [phone] | [facility] [place] | | | | | AUDIOLOGY | Fax: | [address] | | | | | | [phone] | Phone: | | | | | | | [phone] | | | | | | | Fax: | | | | | | | [phone] | +--------+--------+ + + + + Reason [...] | | | | | Hospital | [facility] | | | | | | Internal | Dojolynn | | | | | | Medicin | Children's | | | | | | [address] | Hospital 7th | | | | | | [address]olo [address] | Floor | | | | | | [place], | [place], [place] | | | | | | [place] [address] | [address] | | | | | | Phone: | Phone: | | | | | | [phone] | [phone] | | | | | | Fax: | Fax: | | | | | | [phone] | [phone] | +--------+--------+ + + + + Encounter Details +--------+---------+ + + + | Date | Type | Department | Care Team | Description | +--------+---------+ + + + | 07/07/ | Office | Metabolic Genetics | Deidre Nguyen MD | 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[facility] | [address] [facility] | heterozygous female | | | | [address] | [address] [place], | ([facility]) (Primary Dx) | | | | Josephine | [place] [address] | | | | | [facility] | [phone] | | | | | 7th Floor [place], | | | | | | [place] [address] | | | | | | [phone] | | | +--------+---------+ + + + [...] AM PDT REFERRING PROVIDER: Estiven Hallman DO 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 Yes, started prior to 2006, then stopped for , and restarted after 2009 Infusion Location: [facility] Date of Last Evaluation: 10/2017 Jarvis Miguel is a 38 y.o. 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 DNA confirmed the above mutation at [facility], but the report just says [...] reviewed by me at this visit ut [facility] hospital clinic's patient history form. Pertinent positives are [...] patient and family inteviewing, examining and evaluating sil huynh; > 50% of time spent on counseling and coordination of care. Deidre Nguyen MD [facility] Metabolic Clinic [address] [place] [address] documented in this encounte r Plan of Treatment +--------+ + + + + | Date | Type | Specialty | Care Team | Description | +--------+ + + + + | 06/05/ | Procedure | Surgery | | | | 2021 | Pass | | | | +--------+ + + + + documented as of this encounter Results ALBUMIN URINE, [...] [facility] | [address] | [place] [address] | | | SERVICES, CORE | PARK [...] | + + + + + | [facility] | [address] | [place] [address] | | | SERVICES, CORE | PARK [...] | | LAB | | | | [place] | | | | | | [place], [place] | | | | | | [address] | | | | + + + [...] [facility] | [address] | [place] [address] | | | SERVICES, CORE | PARK [...] | | | LAB NAME | By:Sanofi GenzymeJeff | | REFERENCE | | | | Michell Armenta, | | LAB | | | | [place] [address] | | | | + + + [...] | + + + + + | [facility] | [address] | [place] [address] | | | SERVICES, CORE | JAMIA [...]
--- OUTSIDE RECORDS SUMMARY | ~2020-06-09 | XMS | Encounter Summary ---
Demographics + + + | Address | [address] | | | [place] [address] | + + + | Home Phone [...] Team Providers + +------+ + | Care Pasta Maker Name | Role | Phone | + +------+ + | Lexx Estiven | PCP | | + +------+ + Reason for Visit + + + | Reason | Comments | + + + | Prior Authorization | Approved Jennifer 27 visits until 08/19/17 | | Request - Medication | | + + + Encounter Details +--------+ + + + + | Date | Type | Department | Care Team | Description | +--------+ + + + + | 08/23/ | Documentati | [facility] at [facility] 7th | Shaina Barrett | Prior Authorization | | 2016 | on | Floor [address] | [place]faro | Request - Medication | | | | St Mailcode: [facility] | | (Approved Fabrazyme | | | | [place], [place] | | 27 visits until | | | | [address] | | 08/19/17 ) | | | | [phone] | | | +--------+ + + + [...] Telephone Encounter - Shaina Barrett FNP - 09/04/2016 2:20 PM PSTPrior authorization approved for [employer] for 27 visits. From [facility] Number:[id number] from 08/20/16 to 08/19/2017. See scanned documents under media tab for details. Shaina Barrett, [place], MPH, FORESTRY BIOLOGY SPECIALIST-BC Nurse Practitioner, Metabolic Clinic documented in th [...]
--- OUTSIDE RECORDS SUMMARY | ~2020-06-09 | XMS | Encounter Summary ---
Demographics + + + | Address | [address] | | | [place] [address] | + + + | Home Phone [...] Team Providers + +------+ + | Care Mold Preparer Name | Role | Phone | + [...] Letters | | 2006 | scribed | [facility] [address] | | | | | | [address]jali Todd | | | | | | Davin Perez | | | | | | [address] | | | | | | [place], [place] | | | | | | [address] | | | | | | [phone] | | | +--------+ + + + [...] as of this encounter Progress Notes Interface, Crime Prevention Worker In - 11/27/2006 2:35 AM PDT [id number] 11/25/2006 11/25/2006 [id number] [address] [address] or November 25, 2006 Florian Martinez [facility] [address] [place] [address] RE: JARVIS ENRIQUE MR #: [id number] Dear Dr. Martinez, We saw your patient, Jarvis Enrique, in the Metabolic Clinic at [facility] on November 25, 2006. Jarvis has Fabry [...] Demerol. This was all done in the [place] area, and I do not have copies [...] symmetric bilaterally. Gait normal. Cerebellar function intact. Ozmlvk-yi-kqvp testing normal. Impression: A 26-year-old with Fabry [...] be good for her to see a director of early childhood and make sure that she does not have any underlying condition causing her abdominal pain. If there is not a director of early childhood who can see her in the [facility] in the near future, then a general surgeon would be the next choice. Secondly, I recommend consider referring her to the RECREATION TECHNICIAN for a pelvic exam and to [...] addition, enzyme replacement therapy should, in the terminal superintendent, help with a lot of these signs [...] or wish to discuss her care. E-mail: [email or web address] Sincerely, Fawad Muhammad M.D. Professor of Pediatrics and Molecular Medical Genetics e-mail:[email or web address] / [id number] / [id number] / [id number] / documented in this encounter Plan of [...]
--- OUTSIDE RECORDS SUMMARY | ~2020-06-09 | XMS | Encounter Summary ---
Demographics + + + | Address | [address] | | | [place] [address] | + + + | Home Phone | | + + + | Preferred Language | Unknown | + + + | Marital Status | Single | + + + | Adventism Affiliation | Unknown | + + + [...] Team Providers + +------+ + | Care Surgical Scrub Technologist Name | Role | Phone | + +------+ + | Fausto Sinclair | PCP | | + +------+ + Encounter Details +--------+ + + + + | Date | Type | Department | Care Team | Description | +--------+ + + + + | 06/23/ | Documentati | [facility] | Shaina Barrett | | | 2012 | on | Floor [address] | | | | | St Mailcode: [facility] | | | | | | [facility] [place], [place] | | | | | | [address] | | | | | | [phone] | | | +--------+ + + + [...] Telephone Encounter - Shaina Barrett FNP - 06/30/2013 1:34 PM Jeanine 's Fabrazyme infusions have been approved by her insurance for another six month period ( 06/25/2013 12/24/2013) PA # [id number]. I received the confirmation of the approval verbally via the phone, thus I have no written documentation to scan. Sample orders were given many months ago to Dr. Rain's office when we were trying to do the prior authorization through Dr. Rain s office; however, as that has been so long ag o I have updated the orders and have sent a new template last week as we need to correct s ome information on those orders. More administrative than clinical concerns in updating the orders. I have scanned a copy of those orders as well as the FAXes to the infusion center and Dr. Aneta forte's office under the media tab. NICHOLE Sutton, MPH, [facility]- Nurse Practitioner, Metabolic Clinic documented in th is encounter Plan of Treatment +--------+ + + + + | Date | Type | Specialty | Care Team | Description | +--------+ + + + + | 06/05/ | Procedure | Surgery | | | | 2022 | Pass | | | | +--------+ + + + + documented as of this encounter Visit Diagnoses Not on filedocumented in this encounter"
--- OUTSIDE RECORDS SUMMARY | ~2020-06-09 | XMS | Encounter Summary ---
Demographics + + + | Address | [address] | | | [place] [address] | + + + | Home Phone [...] Team Providers + +------+ + | Care Cane Weigher Name | Role | Phone | + +------+ + | Lexx Estiven | PCP | | + +------+ + Encounter Details +--------+ + + + + | Date | Type | Department | Care Team | Description | +--------+ + + + + | 09/16/ | Documentati | [facility] 7th | Marcellus Rodriguez MD | | | 2018 | on | Floor [address] | [address] [facility] | | | | | St Mailcode: [facility] | [facility] | | | | | [facility] [place], [place] | [place], [place] | | | | | [address] | [address] | | | | | [phone] | [phone] | | | | | | | [...] + | LAB OTHER | Routin | 06/16/2017 | | Results for this | | | e | | | procedure are in the | | | | | | results section. | + +--------+ + + + documented in this encounter Results LAB OTHER (06/16/2017) + + + + + + | Component | Value | Ref Range | Performed | Pathologist | | | | | At | Signature | + + + + + + | ANTIBODY 1 | negativeComment: | | NON [facility] | | | | Agalsidase beta igG | | LAB | | | | Antibodies | | | | + + + + + + + + | Specimen | + + | | + + + +---------+ + + | Performing | Address | City/State/Zipcode | Phone Number | | Organization | | | | + +---------+ + + | NON [facility] | | | | + +---------+ + + documented in this encounter Visit Diagnoses Not on filedocumented in this encounter"
--- OUTSIDE RECORDS SUMMARY | ~2020-06-09 | XMS | Encounter Summary ---
Demographics + + + | Address | [address] | | | [place] [address] | + + + | Home Phone [...] Team Providers + +------+ + | Care Scrap Dealer Name | Role | Phone | + +------+ + | Estiven Hallman | PCP | | + +------+ + Encounter Details +--------+------+ + + + | Date | Type | Department | Care Team | Description | +--------+------+ + + + | 01/12/ | Lab | Laboratory at [facility] | | | | 2019 | | [address] | | | | | | [facility] | | | | | | and [place], | | | | | | [address] | | | | | | [place], [place] | | | | | | [address] | | | | | | [phone] | | | +--------+------+ + + + [...] | + + + + + | [facility] | [address] | [place] [address] | | | SERVICES, CORE | [address] [...] | | | | | determined by [facility] | | | | | | Laboratories. See | | | | | | Compliance Statement B: | | | | | | [employer].com/CSPerformed | | | | | | by PlayLab,[address] | | | | | | Merlyn Cartwright [facility] | | | | | | [address] | | | | | | [phone].TongCard Holdingslab. | | | | | | Last [...] [facility] | [address] | [place], [place] | | | UNIV PTH - INTFC | | [address] | | + + + + + [...] | + + + + + | [facility] | [address] | [place] [address] | | | MARAL BANKS | JAMIA [...] [facility] | [address] | [place] [address] | | | SERVICES, CORE | PARK [...] [facility] | [address] | [place] [address] | | | SERVICES, CORE | PARK [...] [facility] | [address] | [place] [address] | | | SERVICES, CORE | PARK [...] | | | | | determined by [facility] | | | | | | Laboratories. See | | | | | | Compliance Statement B: | | | | | | [employer].EffiCity/CSPerformed | | | | | | by PlayLab,[address] | | | | | | Merlyn Cartwright [facility] [place] | | | | | | [address] | | | | | | [phone].[employer]. | | | | | | comLast MD, | | | | | | [...] [facility] | [address] | [place], [place] | | | UNIV P[facility] - INTFC | | [address] | | + + + + + [...] [facility] | [address] | [place] [address] | | | SERVICES, [facility] | [address] | | | + [...] | | | | | determined by [facility] | | | | | | Laboratories. See | | | | | | Compliance Statement B: | | | | | | [employer].EffiCity/CSPerformed | | | | | | by PlayLab,[address] | | | | | | Merlyn Cartwright, [facility] | | | | | | [address] | | | | | | [phone].aruplab. | | | | | | Last [...] [facility] | [address] | [place], [place] | | | UN[facility] PTH - INTFC | | [address] | | + + + + + [...] | + + + + + | [facility] | [address] | [place] [address] | | | SERVICES, CORE | JAMIA [...] [facility] | [address] | [place] [address] | | | SERVICES, SPECIAL | PARK [...] [facility] | [address] | [place] [address] | | | SERVICES, CORE | [address] | | | + + + + + documented in this encounter Visit Diagnoses Not on filedocumented in this encounter"
--- OUTSIDE RECORDS SUMMARY | ~2020-06-09 | XMS | Encounter Summary ---
Demographics + + + | Address | [address] | | | [place] [address] | + + + | Home Phone [...] Team Providers + +------+ + | Care Cigar Patcher Name | Role | Phone | + +------+ + | Lexx Estiven | PCP | | + +------+ + Encounter Details +--------+------+ + + + | Date | Type | Department | Care Team | Description | +--------+------+ + + + | 11/04/ | Lab | Lab Center at | | Fabry disease in | | 2017 | | [place] | | heterozygous female | | | | [facility] | | ([facility]) | | | | [address] | | | | | | [place] | | | | | | [facility] | | | | | | 7th Floor [place], | | | | | | [place] [address] | | | | | | [phone] | | | +--------+------+ + + + [...] CBC AND AUTO DIFF | Routin | 11/04/2017 | Fabry disease in | Results for this | | | e | 3:50 PM | heterozygous female | procedure are in the | | | | PST | ([facility]) | results section. | + +--------+ + + + | CBC, WITH | Routin | 11/04/2017 | Fabry disease in | Results for this | | DIFFERENTIAL | e | 3:50 PM | heterozygous female | procedure are in the | | | | PST | ([facility]) | results section. | + +--------+ + + + | UA, DIPSTICK ONLY | Routin | 11/04/2017 | Fabry disease in | Results for this | | | e | 3:50 PM | heterozygous female | procedure are in the | | | | PST | ([facility]) | results section. | + +--------+ + + + documented in this encounter Results CBC AND AUTO DIFF (11/04/2017 3:50 PM PST) + + + + + + | Component | Value | Ref Range | Performed | Pathologist | | | | | At | Signature | + + + + + + | WHITE CELL | 9.24 | 3.50 - 10.80 | [facility] | | | COUNT | | K/cu mm | LABORATORY | | | | | | SERVICES, | | | | | | CORE | | + + + + + + | RED CELL | 4.49 | 4.00 - 5.20 | [facility] | | | COUNT | | M/cu mm | LABORATORY | | | | | | SERVICES, | | | | | | CORE | | + + + + + + | HEMOGLOBIN | 12.5 | 12.0 - 16.0 | [facility] | | | | | g/dL | LABORATORY | | | | | | SERVICES, | | | | | | CORE | | + + + + + + | HEMATOCRIT | 39.1 | 36.0 - 46.0 % | [facility] | | | | | | LABORATORY | | | | | | SERVICES, | | | | | | CORE | | + + + + + + | MCV | 87.1 | 80.0 - 96.0 fL | [facility] | | | | | | LABORATORY | | | | | | SERVICES, | | | | | | CORE | | + + + + + + | MCHC | 32.0 | 33.0 - 35.5 | [facility] | | | | | g/dL | LABORATORY | | | | | | SERVICES, | | | | | | CORE | | + + + + + + | RDW SD | 45.3 | 35.1 - 46.3 fL | [facility] | | | | | | LABORATORY | | | | | | SERVICES, | | | | | | CORE | | + + + + + + | PLATELET | 262 | 150 - 400 K/cu | [facility] | | | COUNT | | mm | LABORATORY | | | | | | SERVICES, | | | | | | CORE | | + + + + + + | MPV | 10.2 [...] + + + + | NEUTROPHIL | 65.1 | 50.0 - 70.0 % | [facility] | | | % | | | LABORATORY | | | | | | SERVICES, | | | | | | CORE | | + + + + + + | LYMPHOCYTE | 27.4 | 18.0 - 42.0 % | [facility] | | | % | | | LABORATORY | | | | | | SERVICES, | | | | | | CORE | | + + + + + + | MONOCYTE % | 4.7 | 3.5 - 9.0 % | [facility] | | | | | | LABORATORY | | | | | | SERVICES, | | | | | | CORE | | + + + + + + | EOS % | 2.2 | 1.0 - 3.0 % | [facility] | | | | | | LABORATORY | | | | | | SERVICES, | | | | | | CORE | | + + + + + + | BASO % | 0.3 | 0.0 - 2.0 % | [facility] | | | | | | LABORATORY | | | | | | SERVICES, | | | | | | CORE | | + + + + + + | IG% | 0.3Comment: Increased | 0.0 - 1.0 % | [facility] | | | | immature granulocytes | | LABORATORY | | | | (IG) define a left | | SERVICES, | | | | shift. Immature | | CORE | | | | granulocytes (IG) are an | | | | | | automated count of | | | | | | metamyelocytes, | | | | | | myelocytes and | | | | | | promyelocytes. Bands | | | | | | are not included in the | | | | | | IG count. Bands are | | | | | | included in the | | | | | | neutrophil count. | | | | + + + + + + | NEUTROPHIL | 6.02 | 1.80 - 7.70 | [facility] | | | # | | K/cu mm | LABORATORY | | | | | | SERVICES, | | | | | | CORE | | + + + + + + | LYMPHOCYTE | 2.53 | 1.00 - 4.80 | [facility] | | | # | | K/cu mm | LABORATORY | | | | | | SERVICES, | | | | | | CORE | | + + + + + + | MONOCYTE # | 0.43 | 0.10 - 0.90 | [facility] | | | | | K/cu mm | LABORATORY | | | | | | SERVICES, | | | | | | CORE | | + + + + + + | EOS # | 0.20 | 0.00 - 0.50 | [facility] | | | | | K/cu mm | LABORATORY | | | | | | SERVICES, | | | | | | CORE | | + + + + + + | BASO # | 0.03 | 0.00 - 0.10 | [facility] | | | | | K/cu mm | LABORATORY | | | | | | SERVICES, | | | | | | CORE | | + + + + + + | IG# | 0.03 | 0.00 - 0.10 | [facility] | [...] Performed At | + + + | New reference ranges for IG% and IG# effective 10/05/2017. | [facility] | | Increased immature granulocytes (IG) define a left shift. Immature | LABORATORY | | granulocytes (IG) are an automated count of metamyelocytes, myelocytes | SERVICES, CORE | | and promyelocytes. Bands are not included in the IG count. Bands are | | | included in the neutrophil count. 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
--- OUTSIDE RECORDS SUMMARY | ~2020-06-09 | XMS | Encounter Summary ---
Demographics + + + | Address | [address] | | | [place] [address] | + + + | Home Phone | | + + + | Preferred Language | Unknown | + + + | Marital Status | Single | + + + | Protestant Affiliation | Unknown | + + + | Race | White | + + + | Ethnic Group | Not or | + + + Author + + + | Author | [facility] | | | and [place] | + + + | Organization | [facility] | | | and [place] | + + + | Address | Unknown | + + + | Phone | Unavailable | + + + Support + + + + + | Name | Relationship | Address | Phone | + + + + + | Jordyn Sharmaves | ECON | NONE | | | | | [place] [address] | | + + + + + | Jordyn Sharmaves | ECON | NONE | | | | | [place] [address] | | + + + + + Care Team Providers + +------+ + | Care Rn Home Health Name | Role | Phone | + +------+ + PCP | Unavailable | + +------+ + Encounter Details +--------+ + + + + | Date | Type | Department | Care Team | Description | +--------+ + + + + | 08/30/ | Hospital | [facility] | | | | 2000 | Encounter | [facility] | | | | | | CENTER [address] | | | | | | [place], [place] | | | | | | [address] | | | | | | [phone] | | | +--------+ + + + [...]
--- OUTSIDE RECORDS SUMMARY | ~2020-06-09 | XMS | Encounter Summary ---
Demographics + + + | Address | [address] | | | [place] [address] | + + + | Home Phone [...] Providers + +------+ + | Care Head Cook Name | Role | Phone | + +------+ + | Mikki Barajas MD | PCP | | + +------+ + Encounter Details +--------+ + + + + | Date | Type | Department | Care Team | Description | +--------+ + + + + | 05/26/ | Floor [facility] | Digestive Health | Eber Cho, | | | 2019 | | Center at [facility] [address] | [address] | | | | | [address] [place] | [facility] [place] | | | | | for Health and | [address] | | | | | [place], [address] | [phone] | | | | | [place], [place] | | | | | | [address] | | | | | | [phone] | | | +--------+ + + + [...]
--- OUTSIDE RECORDS SUMMARY | ~2020-06-09 | XMS | Encounter Summary ---
Demographics + + + | Address | [address] | | | [place] [address] | + + + | Home Phone [...] Author + + + | Author | [facility] | + + + | Organization | [facility] | + + + | Address | Unknown | + + + | Phone | Unavailable | + + + Support + + +---------+ + | Name | Relationship | Address | Phone | + + +---------+ + | John Miguel | ECON | Unknown | | + + +---------+ + Care Team Providers + +------+ + | Care Machine Room Engineer Name | Role | Phone | + +------+ + | Estiven Hallman | PCP | | + +------+ + Reason for Visit + +--------+ + | Reason | Onset | Comments | | | Date | | + +--------+ + | Medication | 07/31/ | home infusions? | | management | 2016 | | + +--------+ + Encounter Details +--------+ + + + + | Date | Type | Department | Care Team | Description | +--------+ + + + + | 07/31/ | Telephone | [facility] at [facility] 7th | Marcellus Rodriguez MD | Medication | | 2016 | | Floor [address] | [address] | management (home | | | | St Mailcode: [facility] | [facility] | infusions?) | | | | [facility] [place] | [place], [place] | | | | | [address] | [address] | | | | | [phone] | [phone] | | | | | | | [...] Notes Telephone Encounter - Xenia Herzog - 07/31/2016 3:37 PM 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 (I asked her if she was new and she said yes, she seems to be getting the tough ones). She said she is trying to figure out if Fabryzyme is one that can be done at h [facility]. I told her I couldn't think of anyone that was on it at home, we have other ERT's that we can do at home but I just wasn't sure. I looked it up and couldn't find it easily. I g ave her [employer] number and said to call them and ask. They will know. She said it is a pebbles y expensive drug and if they could save money by doing it at home that would be great. I as ked if she had talked to the pt yet and she said "no, but I can see from the previous case malik snato she isn't very participatory". I told her yes, I wasn't sure if pt willing to change , but told her good luck. If she needs us to do anything on our end (we would support home infusions if Fabryzyme can be done at home) please let us know. Told her Shaina gates ur ENTERPRISE SYSTEMS ARCHITECT usually helps with the infusion stuff and she is out this week. Electronically tamela d by Xenia Herzog at 07/31/2016 3:40 PM PSTdocumented in this encounter Plan of Treatment [...]
--- OUTSIDE RECORDS SUMMARY | ~2020-06-09 | XMS | Encounter Summary ---
Demographics + + + | Address | [address] | | | [place] [address] | + + + | Home Phone [...] Team Providers + +------+ + | Care Roll Cutter Name | Role | Phone | + +------+ + | Katie Dominique MD | PCP | | + +------+ + Reason for Visit + +--------+ + | Reason | Onset | Comments | | | Date | | + +--------+ + | | 11/29/ | | | | 2009 | | + +--------+ + Encounter Details +--------+ + + + + | Date | Type | Department | Care Team | Description | +--------+ + + + + | 11/29/ | Telephone | [facility] at [facility] 7th | Shaina Barrett | | | 2009 | | Floor [address] | | | | | St Mailcode: [facility] | | | | | | [place], [place] | | | | | | [address] | | | | | | [phone] | | | +--------+ + + + [...] Telephone Encounter - Shaina Barrett FNP - 11/29/2009 11:23 AM PDTTC from Jarvis. Concerned about her (EDC March 04) and that she is now on Lovenox 40 mg daily for coagulation concerns. Since starting she has been light headed and dizzy. 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 Is also on Zofran 8 mg daily, but still having nausea and vomiting. States that the fetus is larger than expected to be at this time via ultrasound. Is now being foll owed by Dr. Kilgore at [facility] . Has signed a release of info rmation for our clinic to receive any records. Continues to be followed routinely by Dr. Kranthi Rivas in [facility]. Wants a confirmation that these complications are caused by the Michael ry. I spoke briefly with Dr. Muhammad, who has spoken with the medicine physicians at [facility] and he notes that Jarvis's care should continue to be monitored with noted inte rventions by the team there. The literature does document that some Fabry patients are at [facility] for auto-immune disorders that she may be currently experiencing. Dr. Muhammad did speak with Jarvis last week and did discuss the follow up after and the care of a male in [facility] with Fabry. She has an appointment scheduled in March to be seen by Dr. Muhammad in the etabolic clinic here at [facility] and has been encouraged to bring the new with her at zuhair t time. I called Jarvis back and relayed the information from Dr. Muhammad and reassured her to erica nue the care with both her highway painter helper and her routine OB provider. I did re-emphasize that some women have had autoimmune disorders during their , and we have no wa y of knowing if her complication are directly related to the Fabry; however, caring for the symptoms is what is most important. She became very quiet and quickly ended the conversation when I advised her to continue care with both OB providers and to continue to ask questions of them regarding her current symptoms regardless of the underlying cause. documented in th is encounter Plan of [...]
--- OUTSIDE RECORDS SUMMARY | ~2020-06-09 | XMS | Encounter Summary ---
Demographics + + + | Address | [address] | | | [place] [address] | + + + | Home Phone [...] Providers + +------+ + | Care Field Tax Auditor Name | Role | Phone | + +------+ + | Christina Rain MD | PCP | | + +------+ + Encounter Details +--------+ + + + + | Date | Type | Department | Care Team | Description | +--------+ + + + + | 04/09/ | Telephone | [facility] at [facility] 7th | Fawad Muhammad, | | | 2010 | | Floor [address] | | | | | St Mailcode: [facility] | | | | | | [facility] [place], [place] | | | | | | [address] | | | | | | [phone] | | | +--------+ + + + [...] Notes Telephone Encounter - Xenia Herzog - 04/09/2011 2:59 PM Berkley called and Jarvis called her about a hearing she is having for the denial for [facility]. Lexus told her to call her pcp, i t is probably through them. Apparently Jarvis was sent 100pages of stuff and wanted Lexus to help or call in for the hearing. She stated she has been calling [facility] and no one is calling her back. I told Lexus that I have not rcv'd any calls from her. RS and Shaina are out. RS for 3 weeks, BW for 2. I do not see any documentation about us being involved. I see BW do cumented about PCP doing this. Lexus will call Jarvis and let her know. documented in this encounter Plan of Treatment [...]
--- OUTSIDE RECORDS SUMMARY | ~2020-06-09 | XMS | Encounter Summary ---
Demographics + + + | Address | [address] | | | [place] [address] | + + + | Home Phone | | + + + | Preferred Language | Unknown | + + + | Marital Status | Single | + + + | Sabianist Affiliation | Unknown | + + + [...] Providers + +------+ + | Care Business Banking Officer Name | Role | Phone | + +------+ + | Estiven Hallman DO | PCP | | + +------+ + Reason for Visit + +--------+ + | Reason | Onset | Comments | | | Date | | + +--------+ + | Medication | 12/09/ | needs PCP appt for infusion | | management | 2018 | | + +--------+ + Encounter Details +--------+ + + + + | Date | Type | Department | Care Team | Description | +--------+ + + + + | 12/09/ | MyChart | Metabolic Genetics | Genny Hagan | Infusion Orders | | 2019 | Encounter | at [facility] | B, PAPER GUILLOTINE OPERATOR [address] [facility] | | | | | [address] [facility] | [facility] | | | | | [place] | [place], [place] | | | | | [facility] | [address] | | | | | [address] [place] [address], | [phone] | | | | | [place] [address] | | | | | | [phone] | | | +--------+ + + + [...]
--- OUTSIDE RECORDS SUMMARY | ~2020-06-09 | XMS | Encounter Summary ---
Demographics + + + | Address | [address] | | | [place] [address] | + + + | Home Phone [...] Team Providers + +------+ + | Care Flight Control Specialist Name | Role | Phone | + +------+ + | Fausto Sinclair | PCP | | + +------+ + Encounter Details +--------+ + + + + | Date | Type | Department | Care Team | Description | +--------+ + + + + | 06/24/ | Documentati | [facility] at [facility] 7th | Deana Jimenez MD | | | 2012 | on | Floor [address] | [address] | | | | | St Mailcode: [facility] | Naty Isaacs [place], | | | | | [facility] [place], [place] | [place] [address] | | | | | [address] | [phone] | | | | | [phone] | | | +--------+ + + + [...]
--- OUTSIDE RECORDS SUMMARY | ~2020-06-09 | XMS | Encounter Summary ---
Demographics + + + | Address | [address] | | | [place] [address] | + + + | Home Phone [...] Team Providers + +------+ + | Care Advisory Intern Name | Role | Phone | + +------+ + | Fausto Sinclair | PCP | | + +------+ + Encounter Details +--------+ + + + + | Date | Type | Department | Care Team | Description | +--------+ + + + + | 06/24/ | Documentati | [facility] | Deana Jimenez MD | | | 2012 | on | Floor [address] | [address] | | | | | St Mailcode: [facility] | Naty Isaacs [place], | | | | | [facility] [place], [place] | [place] [address] | | | | | [address] | [phone] | | | | | [phone] | | | +--------+ + + + [...]
--- OUTSIDE RECORDS SUMMARY | ~2020-06-09 | XMS | Encounter Summary ---
Demographics + + + | Address | [address] | | | [place] [address] | + + + | Home Phone [...] Team Providers + +------+ + | Care Predator Control Trapper Name | Role | Phone | + +------+ + | Mikki Barajas MD | PCP | | + +------+ + Reason for Visit + +--------+ + | Reason | Onset | Comments | | | Date | | + +--------+ + | Medical Records | 07/15/ | | | Review | 2019 | | + +--------+ + Encounter Details +--------+ + + + + | Date | Type | Department | Care Team | Description | +--------+ + + + + | 07/15/ | Abstract | [facility]ive [facility] | Clinic, Surgery | Medical Records | | 2019 | | Center at [facility] [address] | | Review | | | | [address] [facility] | | | | | | for Health and | | | | | | [facility], [facility] 2 | | | | | | [place], [place] | | | | | | [address] | | | | | | [phone] | | | +--------+ + + + [...]
--- OUTSIDE RECORDS SUMMARY | ~2020-06-09 | XMS | Encounter Summary ---
Demographics + + + | Address | [address] | | | [place] [address] | + + + | Home Phone [...] Team Providers + +------+ + | Care Spider Assembler Name | Role | Phone | + +------+ + | Lexx Estiven | PCP | | + +------+ + Encounter Details +--------+ + + + + | Date | Type | Department | Care Team | Description | +--------+ + + + + | 02/03/ | Documentati | Digestive Health | Kathleen Canchola, | | | 2017 | on | Center at [facility] [address] | ACNP [address] | | | | | [address] | [address] [facility] [place] | | | | | for Health and | [address] | | | | | [facility], [address] | [phone] | | | | | [place], [place] | | | | | | [address] | | | | | | [phone] | | | +--------+ + + + [...]
--- OUTSIDE RECORDS SUMMARY | ~2020-06-09 | XMS | Encounter Summary ---
Demographics + + + | Address | [address] | | | [place] [address] | + + + | Home Phone [...] Team Providers + +------+ + | Care Production Assembler Name | Role | Phone | + +------+ + | Florian Martinez I | PCP | Unavailable | + +------+ + Encounter Details +--------+ + + + + | Date | Type | Department | Care Team | Description | +--------+ + + + + | 11/25/ | Office | [facility] 7th | Fawad Muhammad, | OTHER RECORD | | 2006 | Visit-ECX | Floor [address] | | | | | St Mailcode: [facility] | | | | | | [facility] [place], [place] | | | | | | [address] | | | | | | [phone] | | | +--------+ + + + [...] + + + documented in this encounter Miscellaneous Notes Jamil Booker - 04/27/2008 8:35 AM PDT documented in this encounter Plan of Treatment [...]
--- OUTSIDE RECORDS SUMMARY | ~2020-06-09 | XMS | Encounter Summary ---
Demographics + + + | Address | [address] | | | [place] [address] | + + + | Home Phone [...] Team Providers + +------+ + | Care Bowling Ball Grader Name | Role | Phone | + +------+ + | Fausto Sinclair | PCP | | + +------+ + Encounter Details +--------+ + + + + | Date | Type | Department | Care Team | Description | +--------+ + + + + | 12/31/ | Telephone | [facility]th | Deana Jimenez MD | | | 2013 | | Floor [address] | [address] | | | | | St Mailcode: [facility] | Naty Isaacs [place], | | | | | [facility] [place], [place] | [place] [address] | | | | | [address] | [phone] | | | | | [phone] | | | +--------+ + + + [...] Notes Telephone Encounter - Xenia Herzog - 12/31/2013 1:39 PM PDTPt called and left me msg faustino sepulveda she had questions; called her back and left msg to call me. documented in this encount er Plan of [...]
--- OUTSIDE RECORDS SUMMARY | ~2020-06-09 | XMS | Encounter Summary ---
Demographics + + + | Address | [address] | | | [place] [address] | + + + | Home Phone [...] Providers + +------+ + | Care Head Paper Tester Name | Role | Phone | [...] as of this encounter Progress Notes Interface, Director Drug Safety In - 04/14/2005 12:36 AM PDT [id number] 10/15/2004 10/15/2004 [id number] IVA [facility] [address] [place] [address] or October 15, 2004 Fab Delarosa M.D. RE: JARVIS ENRIQUE MR #: [id number] Dear Doctors: We saw your patient, Jarvis Enrique, in the Metabolic Clinic at [facility] on October 15, 2004. I saw Ms. [...] number is , fax , and e-mail [email or web address] Sincerely, Fawad Muhammad M.D. Computer Forensics Examiner of Pediatrics and Molecular Medical Genetics e-mail:[email or web address] / [id number] / [id number] / [phone] / Jeni Mckeon documented i n this [...]
--- OUTSIDE RECORDS SUMMARY | ~2020-06-09 | XMS | Encounter Summary ---
Demographics + + + | Address | [address] | | | [place] [address] | + + + | Home Phone [...] Team Providers + +------+ + | Care Bessemer Regulator Name | Role | Phone | + +------+ + | Estiven Hallman | PCP | | + +------+ + Reason for Visit +--------+--------+ + | Reason | Onset | Comments | | | Date | | +--------+--------+ + | Other | 06/17/ | not specified | | | 2016 | | +--------+--------+ + Encounter Details +--------+ + + + + | Date | Type | Department | Care Team | Description | +--------+ + + + + | 06/17/ | Telephone | [facility] | Deana Jimenez MD | Other (not specified | | 2016 | | Floor [address] | [address] | ) | | | | St Mailcode: [facility] | Naty Isaacs [place], | | | | | [facility], [place] | [place] [address] | | | | | [address] | [phone] | | | | | [phone] | | | +--------+ + + + [...] Notes Telephone Encounter - Xenia Herzog - 06/17/2016 3:14 PM PDTReceived VM from Friday from Jarvis stating she has been trying to reach Shaina or I for "2 weeks" (I have not received any calls from her that I have not returned). I called back and it was an un-id'd voicemail. I left [facility] stating it looks like we seeing her tomorrow (for her son) and we can discuss kellee avalos she needs then. documented in this encount er Plan of [...]
--- OUTSIDE RECORDS SUMMARY | ~2020-06-09 | XMS | Encounter Summary ---
Demographics + + + | Address | [address] | | | [place] [address] | + + + | Home Phone [...] Team Providers + +------+ + | Care Felt Puller Name | Role | Phone | + +------+ + | Lexx Estiven | PCP | | + +------+ + Encounter Details +--------+ + + + + | Date | Type | Department | Care Team | Description | +--------+ + + + + | 06/16/ | Document-Sc | Health Information | Unknown . | | | 2017 | anned | Services [id number] | | | | | [address] | | | | | | Mailcode: OP17A | | | | | | [facility] | | | | | | [place], [place] | | | | | | [address] | | | | | | [phone] | | | +--------+ + + + [...]
--- OUTSIDE RECORDS SUMMARY | ~2020-06-09 | XMS | Encounter Summary ---
Demographics + + + | Address | [address] | | | [place] [address] | + + + | Home Phone [...] Providers + +------+ + | Care Laboratory Mechanic Helper Name | Role | Phone | + +------+ + | Mikki Barajas MD | PCP | | + +------+ + Encounter Details +--------+--------+ + + + | Date | Type | Department | Care Team | Description | +--------+--------+ + + + | 05/15/ | Travel | | | | | [...]
--- OUTSIDE RECORDS SUMMARY | ~2020-06-09 | XMS | Encounter Summary ---
Demographics + + + | Address | [address] | | | [place] [address] | + + + | Home Phone [...] Team Providers + +------+ + | Care Subcontracts Manager Name | Role | Phone | + +------+ + | Fausto Sinclair | PCP | | + +------+ + Reason for Visit + + + | Reason | Comments | + + + | Fabry disease | routine follow up | + + + Office Visit - E/M Services (Routine) +--------+--------+ + + + + | Status | Reason | Specialty | Diagnoses / | Referred By | Referred To | | | | | Procedures | Contact | Contact | +--------+--------+ + + + + | Closed | | [facility] | Procedures | Fanta, | Zzcdr | | | | Metabolic | 3/12/13 | RICO Lambert | Metabolic | | | | | Sabina | FAUSTO | [address] | | | | | | [place] | St | | | | | | [address] | Mailcode: | | | | | | [place], | [facility] | | | | | | [place] [address] | [place], [place] | | | | | | Phone: | [address] | | | | | | [phone] | Phone: | | | | | | Fax: | [phone] | | | | | | [phone] | Fax: | | | | | | | [phone] | +--------+--------+ + + + + Encounter Details +--------+---------+ + + + | Date | Type | Department | Care Team | Description | +--------+---------+ + + + | 11/24/ | Office | [facility] | Michell Muhammad, | Fabry disease (HCC) | | 2012 | Visit | Floor [address] | MD | (Primary Dx) | | | | St Mailcode: [facility] | | | | | | [facility] [place], [place] | | | | | | [address] | | | | | | [phone] | | | +--------+---------+ + + + [...] + + + | Blood Pressure | 133/95 | 11/24/2012 1:06 PM | | | | | PDT | | + + + + + | Pulse | 90 | 11/24/2012 1:06 PM | | | [...] + + + + | Weight | 148.7 kg (327 lb | 11/24/2012 1:06 PM | | | | 13.2 oz) | PDT | | + + + + + | Height | 162 cm (5' 3.78") | 11/24/2012 1:06 PM | | | | | PDT | | + + + + + | Body Mass Index | 56.66 | 11/24/2012 1:06 PM | | | | | PDT | | + + + + + documented in this encounter Patient Instructions Patient Instructions Chelsea Edwards PA-C - 11/24/2012 3:28 PM PDTIt was nice to see you today. Go to lab today for routine Fabry monitoring labs. We will contact [employer] Medicaid Manager R D, since Fabrazyme was denied. This is the only treatment and your symptoms are worsening, and it is clear to us that you need to be ba ck on treatment for your disease. Follow up in Metabolic clinic in 6 months for routine follow up. Discuss with PCP regarding medications for headaches. We will send you paperwork for Fabry study. 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 Muhammad in metabol ic clinic for routine follow up. HPI: Jarvis was last seen in the metabolic clinic 12/24/2011. Has been plan to restart Fabraz yme since 04/24/2010 visit. Has even gone through an appeals process, and medication is still being denied. In the interim, the symptoms she was experiencing continue to worsen. Regardi ng her Fabry disease she reports continued abdominal pain. Also, her acroparesthesias of her hands and feet continues to be bad, and she has been prescribed oxycodonewhich she utilizes at least 2-3 times weekly for pain control. She reports she has increased weakness and fati erick, and decreased stamina, as noted by her difficulty going up a flight of stairs, or carry ing her toddler son for any distance. These symptoms are related to her Fabry. She indicates that the continued worsening of symptoms is affecting her quality of life and ability to in teract with her children. She continues to hope that she will be able to get back on Fabrazy me treatment for her Fabry disease. Three surgeries in the last few months due to cysts: left oopherectomy in August, hystere ctomy in early September, then right oopherectomy and bilateral salpingotomy in late September. Now on an estrogen patch that she states makes her vanegas, with cramping when she places patc h, and feels that it wears off by the end of the week. Some recent episodes of dizziness. No LOC, and recovers quickly. Tends to be when she exert s herself. Reports that last EKG from 08/2012 was normal. Past Medical History Diagnosis Date Lipidoses 07/01/2005 Fabry disease Past Surgical History Procedure Date Cholecystectomy 11/2008 Appendectomy 04/2009 ruptured, hospitalized 21 days section 02/09/2010 emergency Tubal ligation 02/09/2010 Oophorectomy, left 08/2012 Due to cysts Hysterectomy, partial early 09/2012 Salpingo-oophorectomy, right later 09/2012 and left salpingectomy, due to cysts History Social History Marital Status: Single Spouse [...] (Sulfonamide Antibiotics) Current Medication List Name Sig ACETAMINOPHEN 325 MG TABLET Take 325 mg by mouth every four hours as needed. 2 tabs daily f or headaches. Indications: HEADACHE DISORDER ALPRAZOLAM 1 MG TABLET Take 1 mg [...] times daily with meals. PHYSICAL EXAM: Vitals: Filed Vitals 11/24/2012 1:16 PM Height: 162 cm (5' 3.78")( < 3 %ile) Weight: 148.7 kg (327 lbs 13.2 oz)( < 3 %ile) BP: 133/95 Pulse: 90 BMI: 56.66 kg/(m^2) General Appearance: Obese pleasant female in NAD. HEENT: EOMI, PERRL, fundoscopic exam WNL: no papilledema or retinal vessel tortuosity noted . Mucus membranes pink and moist. No LAD [...] function intact by finger-to -nose test, and rapi d alternating movements. Gait normal. Assessment: Jarvis Miguel is a 32 year old female with Fabry disease, previously taking Fabrazyme, but h as been off the medication for quite a few years now. As stated in the last three visits, Kip pappas needs to be restarted on enzyme replacement therapy with Fabrazyme as soon as possible f or the treatment of her Fabry disease. She is symptomatic with her Fabry disease, with progr essively worsening symptoms described in HPI above. Labs also show proteinuria, a sign of pr ogressing Fabry disease. We will contact [facility] to discuss why she has been denied for this e nzyme replacement therapy, which is the only treatment for this disease, and could dramatica lly improve her quality of life. We will do laboratory testing (CMP, urine protein, urine cr eatinine, urinalysis, lipid panel) at this visit today to monitor some of the effects of her disease, and also to serve as baseline tests with restarting Fabrazyme. We discussed that m ost of her symptoms were compatible with Fabry disease. We discussed the decision to restart Fabrazyme, and she strongly agrees that it would be of benefit for her quality of life. Recommendations: 1. Restart enzyme replacement therapy with Fabrazyme at previous dose.. 2. To lab today for labs: Bloodwork: lipid panel, CMP / Urine: UA, protein, albumin: creati nine ratio 3. Follow up in metabolic clinic in six months given Jarvis's increased symptoms and since s he will be restarting medication. 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 4. Talk with PCP regarding daily headaches and use of tylenol to treat. Possible that tylen ol may be related to rebound headaches. CHELSEA EDWARDS MPAS, PA-C [facility] & [place] [address] [facility], [place] [place] [address] MICHELL MUHAMMAD MD Professor, Pediatrics and Molecular and Medical Genetics [facility], [address] [address] Email: [email or web address] documented in this en counter Miscellaneous Notes Scan - Other, Faculty - 09/01/2013 8:51 AM PSTElectronically signed by Faculty Other at 8:51 AM PSTScan - Other, Faculty - 02/25/2013 12:41 PM PDT can - Other, Faculty - 12/11/2012 3:57 PM PDTElec tronically signed by Faculty Other at 12/11/2012 3:57 PM PDTdocumented in this encounter Plan of Treatment +--------+ + + + + | Date | Type | Specialty | Care Team | Description | +--------+ + + + + | 06/05/ | Procedure | Surgery | | | | 2021 | Pass | | | | +--------+ + + + + documented as of this encounter Results PROTEIN, URINE (11/24/2012 3:51 [...] [facility] | [address] | [place] [address] | | | SERVICES, CORE | [address] [...] [facility] | [address] | [place] [address] | | | SERVICES, CORE | [address] | | | + + + + + COBY MUNIZ ONLY (11/24/2012 3:51 PM PDT) + + + + + + | Component | Value | Ref Range | Performed | Pathologist | | | | | At | Signature | + + + + + + | COLOR(UR) | Yellow | (none) | [facility] | | | [...] [facility] | [address] | [place] [address] | | | SERVICES, CORE | [address] [...] | + + + + + | [facility] | [address] | [place] [address] | | | [facility] [address] | [address] [...] | | | LABORATORY | | | GREEK | | | SERVICES, | | | [...] [facility] | [address] | [place] [address] | | | SERVICES, CORE | [address] | | | + + + + + documented in this encounter Visit Diagnoses + + | Diagnosis | + + | Fabry disease (HCC) - Primary Lipidoses | + + documented in this encounter
--- OUTSIDE RECORDS SUMMARY | ~2020-06-09 | XMS | Clinical Summary ---
Demographics + + + | Address | [address] | | | [place] [address] | + + + | Home Phone [...] Team Providers + +------+ + | Care Jazz Musician Name | Role | Phone | + +------+ + | Mikki Barajas MD | PCP | | + +------+ + Source Comments IGNACIO is fully live on both [facility] Ambulatory and [facility] InPatient.[facility] Allergies + + + + [...] | bedtime. | | | | | | + [...] +---------+------+------+-------+ | LATUDA 120 mg oral | Take 120 mg by mouth | | 0 | 01/2 | | Activ | | tablet | once daily. | | | 04/03 | | e | | | | | | 16 | | | + + + +---------+------+------+-------+ | hydrOXYzine | Take 50 mg by mouth | | 0 | 12/2 | | Activ | | pamoate 50 mg oral | every six hours as | | | 8/20 | | e | | capsule | needed for anxiety. | | | 16 | | | + + + +---------+------+------+-------+ | prazosin 2 mg oral | Take 2 mg by mouth | | 0 | 12/2 | | Activ | | capsule | once daily at | | | 8/20 | | e | | | bedtime. | | | 16 | | | + + + +---------+------+------+-------+ | propranolol 40 mg | Take 40 mg by mouth | | 0 | 12/2 | | Activ | | oral tablet | three times daily. | | | 8/20 | | [...] + + +---------+------+------+-------+ | NOVOLOG U-100 | Inject 1-4 Units | | 0 | 10/0 | | Activ | | INSULIN ASPART 100 | under the skin | | | 3/20 | | e | | unit/mL subcutaneous | (SUBC) three times | | | 19 | | | | solution | daily before meals. | | | | | | + + + +---------+------+------+-------+ | nystatin 100,000 | Apply to affected | 15 g | 2 | 08/2 | | Activ | | unit/gram topical | area two times | | | 04/03 | | e | | powderIndications: | daily. Apply to | | | 20 | | | | soft tissue | candidal lesions | | | | | | | infection | until lesions have | | | | | | | | healed. Indications: | | | | | | | | skin infection | | | | | | + + + +---------+------+------+-------+ | simethicone chew | Chew and swallow 1 | 30 | 0 | 09/1 | | Activ | | 80 mg oral | tablet four times | tablet | | 10/04 | | e | | tablet,chewable | daily as needed for | | | 20 | | | | | bloating | | | | | | | | (gas/bloating). | | | | | | | | *BARIATRIC* | | | | | | + + + +---------+------+------+-------+ | polyethylene | Mix 17 g in liquid | 255 g | 0 | 09 | | Activ | | glycol 17 gram/dose | and drink once | | | 20 | | e | | oral powder | daily. Dissolve 17g | | | 20 | | | | | (1 capful) into 4 | | | | | | | | ounces of liquid and | | | | | | | | drink as needed for | | | | | | | | constipation. | | | | | | | | *BARIATRIC* | | | | | | + + + +---------+------+------+-------+ | glycerin (ADULT) | Unwrap and insert 1 | 25 | 2 | 05/16 | | Activ | | rectal suppository | suppository rectally | supposito | | 20 | | e | | | once daily as | ry | | 20 | | | | | needed for | | | | | | | | constipation (for | | | | | | | | constipation). | | | | | | | | *BARIATRIC* | | | | | | + + + +---------+------+------+-------+ | omeprazole 20 mg | Take 1 capsule by | 90 | 0 | 05/16 | 12/ | Activ | | oral capsule,delayed | mouth once daily in | capsule | | 10/04 | 0/20 | e | | release(DR/EC) | the morning. Open | | | 20 | 20 | | | | the capsule and mix | | | | | | | | into sugar-free | | | | | | | | liquid or yogurt. | | | | | | | | *BARIATRIC* | | | | | | + + + +---------+------+------+-------+ | acetaminophen 325 | Take 2 tablets by | 100 | 0 | 05/16 | | Activ | | mg oral tablet | mouth every six | tablet | | 1/20 | | e | | | hours as needed (as | | | 20 | | | | | needed for pain). | | | | | | | | Cut tablet into | | | | | | | | small pieces. Do | | | | | | | | not crush. | | | | | | | | *BARIATRIC* | | | | | | + + + +---------+------+------+-------+ | ondansetron ODT 4 | Dissolve 1 tablet on | 30 | 1 | 05/16 | | Activ | | mg oral | tongue and swallow | tablet | | 1/20 | | e | | tablet,disintegratin | every six hours. As | | | 20 | | | | g | needed for | | | | | | | | nausea/vomiting. | | | | | | | | Place 1 tablet on | | | | | | | | tongue and let it | | | | | | | | dissolve. | | | | | | | | *BARIATRIC* | | | | | | + [...] + | Overview: Overview: | | PER [facility] NOTES | + + Resolved Problems + [...] + + | 05/26/ | MyChart | Surgery | | pre-op information | | 2020 | Encounter | | | | +--------+ + + + + | 05/26/ | Exhibits Curator | Surgery | Eber Cho, | | | 2020 | | | MD | | +--------+ + + + + | 05/23/ | MyChart | Surgery | | RE:Surgery postponed | | 2020 | Encounter | | | | +--------+ + + + + | 05/16/ | MyChart | Pre-operative | Sterling Yee | ECHO results | | 2020 | Encounter | Medicine | MD Shabbir | | +--------+ + + + + | 05/15/ | Anesthesia | Pre-operative | O Sterling Oconnor | | | 2019 | Event | Medicine | MD Shabbir | | +--------+ + + + + | 05/15/ | Hospital | Cardiology | | | | 2020 | Encounter | | | | +--------+ + + + + | 05/15/ | Office | Pre-operative | Sterling Yee | Preop examination | | 2019 | Visit | Medicine | MD Shabbir | (Primary Dx); 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); Type | | | | | | 2 diabetes mellitus | | | | | | with other specified | | | | | | complication, with | | | | | | long-term current | | | | | | use of insulin | | | | | | (HCC); Morbid | | | | | | obesity due to | | | | | | excess calories | | | | | | (HCC); DM type 2 | | | | | | without retinopathy | | | | | | (HCC); Benign | | | | | | essential HTN; PTSD | | | | | | (post-traumatic | | | | | | stress disorder); | | | | | | PONV (postoperative | | | | | | nausea and vomiting) | +--------+ + + + + | 05/15/ | Travel | | | | | 2019 | | | | | +--------+ + + + + | 05/11/ | Telephone | Surgery | Eber Cho, | Medication | | 2019 | | | MD | | +--------+ + + + + | 05/10/ | Telephone | Pre-operative | Danika, | | | 2020 | | Medicine | CHYNA Mendez | | +--------+ + + + + | 04/28/ | MyChart | Surgery | Eber Cho, | RE:Follow up | | 2020 | Encounter | | MD | | +--------+ + + + + | 04/28/ | Telephone | Medical Genetics | Deidre Nguyen MD | | 2019 | | | | | +--------+ + + + + | 04/27/ | Documentati | Medical Genetics | Deidre Nguyen MD | Other (missed | 2019 | on | | | infusions ) | +--------+ + + + + | 04/27/ | MyChart | Surgery | Clinic, Surgery | Post-Op Visits | | 2019 | Encounter | | | | +--------+ + + + + | 04/21/ | Office | Surgery | Eber Cho, | Severe obesity (BMI | 2019 | Visit | | MD | >= 40) (HCC) | | | | | | (Primary Dx); DM | | | | | | type 2 without | | | | | | retinopathy ([facility]); | | | | | | Gastroesophageal | | | | | | reflux disease | | | | | | without esophagitis; | | | | | | Fabry disease | | | | | | ([facility]); Benign | | | | | | essential HTN | +--------+ + + + + | 04/21/ | Travel | | | | | 2019 | | | | | +--------+ + + + + | 04/17/ | MyChart | Surgery | | Pre check in needed | | 2020 | Encounter | | | | +--------+ + + [...] | | | + + + + Last Filed Vital Signs + + + + + | Vital Sign | Reading | Time Taken | Comments | + + + + + | Blood Pressure | 122/68 | 05/15/2020 8:41 AM | | | | | PDT | | + + + + + | Pulse | 68 | 05/15/2020 8:41 AM | | | | | PDT | | + + + + + | Temperature | 36.4 C (97.6 F) | 05/15/2020 8:41 AM | | | | | PDT | | + + + + + | Respiratory Rate | 22 | 05/15/2020 8:41 AM | | | | | PDT | | + + + + + | Oxygen Saturation | 100% | 05/15/2020 8:41 AM | | | | | PDT | | + + + + + | Inhaled Oxygen | - | - | | | Concentration | | | | + + + + + | Weight | 150.1 kg (331 lb) | 05/15/2020 8:41 AM | | | | | PDT | | + + + + + | Height | 158.8 cm (5' 2.5") | 05/15/2020 8:41 AM | | | | | PDT | | + + + + + | Body Mass Index | 59.58 | 05/15/2020 8:41 AM | | | | | PDT | | + + + + + Plan of Treatment +--------+ + + + + | Date | Type | Specialty | Care Team | Description | +--------+ + + + + | 06/05/ | Procedure | Surgery | | | | 2021 | Pass | | | | +--------+ + + + + + + + + + | Health Maintenance | Due Date | Last | Comments | | | | Done | | + + + + + | Pneumococcal | | 12/31/19 | | | vaccination (1 of 1 | 5 | 19 | | | - PPSV23) | | | | + + + + + | Influenza (Flu) | | 06/28/20 | | | vaccination (#1) | 0 | 19, | | | | | 06/30/20 | | | | | 08, | | | | | 06/30/20 | | | | | 08, | | | | | Addition | | | | | al | | | | | history | | | | | exists | | + + + + + Procedures + +--------+ + + + | [...] | + +--------+ + + + | ANTIBODY SCREEN | Routin | 05/15/2020 | Preop examination | Results for this | | | e | 9:04 AM | | procedure are in the | | | | PDT | | results section. | + +--------+ + + + | ABO & RH TYPE | Routin | 05/15/2020 | Preop examination | Results for this | | | e | 9:04 AM | | procedure are in the | | | | PDT | | results section. | + +--------+ + + + | [facility] - BASIC | Routin | 05/15/2020 | Preop examination | Results for this | | METABOLIC SET | e | 9:04 AM | | procedure are in the | | | | PDT | | results section. | + +--------+ + + + | HEMOGLOBIN A1C, | Routin | 05/15/2020 | Type 2 diabetes | Results for this | | BLOOD | e | 9:04 AM | mellitus with other | procedure are in the | | | | PDT | specified | results section. | | | | | complication, with | | | | | | long-term current | | | | | | use of insulin (HCC) | | | | | | Preop examination | | + +--------+ + + + | [facility] - CBC ONLY | Routin | 05/15/2020 | Preop examination | Results for this | | | e | 9:04 AM | | procedure are in the | | | | PDT | | results section. | + +--------+ + + + | TYPE AND SCREEN | Routin | 05/15/2020 | Preop examination | Results for this | | | e | 9:04 AM | | procedure are in the | | | | PDT | | results section. | + +--------+ + + + | 12 LEAD ECG | Routin | 05/15/2020 | Preop examination | Results for this | | | e | 8:53 AM | | procedure are in the | | | | PDT | | results section. | + +--------+ + + + from Last 3 Months Results TRANSTHORACIC ECHOCARDIOGRAM, ADULT (05/15/2020 10:31 AM [...] formed At | + +---- + | [facility] | [facility] DEPT OF | | [facility] Adult Echocardiography [facility] [address] | | [place], [place] [address] Ph: | | | Pt Name: JARVIS ENRIQUE | | | Study Date/Time 05/15/2020 / 10:31:25 AMMRN: [id number] | | | Most recent prior: -Acc #: [id number] | | | No. previous echos: 0DOB: 1980 40 years | | | Heart Rate: 60 bpmHeight: 63.0 in | | | Blood Pressure: 116/69 mm/HgWeight: 325.8 lb | | | Gender: FBSA: 2.38 m | | | Order ID: [id number] Study | | | [facility] Mary Carballo BS, RDCS, AE, RVTReferring | | | Provider: STERLING TORRESERModalities Performed: 2D, Color flow, | | | [...] | indexed values Report electronically signed by: [id number] Kostas Leonard | | | (05/15/2020, 12:14:18 [...] | | | |Report electronically signed by: [id number] Kostas Leonard MD (05/15/2020, 12:14:18 PM) | | | | | | | | | | | | Final | | + +---- + + + | Procedure Note | + + | Interface, Cardiology Results - 05/15/2020 12:14 PM [facility] | | [facility] Echocardiography Laboratory [address] [place] [address] | | [place], [place] [address] Pt Name: JARVIS | | JENN ENRIQUE Study Date/Time 05/15/2020 / 10:31:25 AMMRN: [id number] | | Most recent prior: -Acc #: [id number] No. previous echos: 0DOB: | | 1980 40 years Heart Rate: 60 bpmHeight: 63.0 in Blood | | Pressure: 116/69 mm/HgWeight: 325.8 lb Gender: FBSA: | | 2.38 m | | Order ID: [id number] [facility] | | Mary Carballo BS, RDCS, AE, RVTReferring Provider: STERLING Schwartz | | Performed: 2D, Color flow, Spectral [...] and indexed values Report electronically signed by: [id number] [facility] | | Horacio GRIMES (05/15/2020, 12:14:18 PM) [...] | | | |Report electronically signed by: [id number] Kostas Leonard MD (05/15/2020, 12:14:18 PM) | | | | | | | | Final | + + + + + + + | Performing | Address | City/State/Zipcode | Phone Number | | Organization | | | | + + + + + | [facility] | [address] | [place], [place] | | | CARDIOLOGY | [address] | [address] | | + + + + + [facility] - CBC ONLY (05/15/2020 9:04 AM PDT) + +-------+ + + + | Component | Value | Ref Range | Performed | Pathologist | | | | | At | Signature | + +-------+ + + + | WHITE CELL | 8.95 | 3.50 - 10.80 | [facility] | | | COUNT | | K/cu mm | LABORATORY | | | | | | SERVICES, | | | | | | [facility] + | | | | | | HEALING | | + +-------+ + + + | RED CELL | 4.80 | 4.00 - 5.20 | [facility] | | | COUNT | | M/cu mm | LABORATORY | | | | | | SERVICES, | | | | | | [facility] | | | | [facility] + | | | | | | HEALING | | + +-------+ + + + | HEMOGLOBIN | 13.5 | 12.0 - 16.0 | [facility] | | | | | g/dL | LABORATORY | | | | | | SERVICES, | | | | | | [facility] | | | | | | [facility] + | | | | | | HEALING | | + +-------+ + + + | HEMATOCRIT | 41.3 | 36.0 - 46.0 % | [facility] | | | | | | LABORATORY | | | | | | SERVICES, | | | | | | [facility] | | | | | [facility] + | | | | | | HEALING | | + +-------+ + + + | MCV | 86.0 | 80.0 - 100.0 fL | [facility] | | | | | | LABORATORY | | | | | | SERVICES, | | | | | | [facility] | | | | | | [facility] + | | | | | | HEALING | | + +-------+ + + + | MCHC | 32.7 | 32.0 - 36.0 | [facility] | | | | | g/dL | LABORATORY | | | | | | SERVICES, | | | | | | [facility] | | | | [facility] + | | | | | | HEALING | | + +-------+ + + + | RDW SD | 40.1 | 35.1 - 46.3 fL | [facility] | | | | | | LABORATORY | | | | | | SERVICES, | | | | | | [facility] | | | [facility] + | | | | | | HEALING | | + +-------+ + + + | PLATELET | 241 | 150 - 400 K/cu | [facility] | | | COUNT | | mm | LABORATORY | | | | | | SERVICES, | | | | | | [facility] | | [facility] + | | | | | | HEALING | | + +-------+ + + + | MPV | 10.9 | 9.7 - 12.3 fL | [facility] [...] + + + | [facility] | [address] | [place] [address] | | | [facility] | | | | | HEALTH + HEALING | | | | + + + + + [facility] - BASIC METABOLIC SET (05/15/2020 9:04 AM PDT) + +---------+ + + + | Component | Value | Ref Range | Performed | Pathologist | | | | | At | Signature | + +---------+ + + + | GLUCOSE, | 337 (H) | 70 - 99 mg/dL | [facility] | | | PLASMA | | | LABORATORY | | | (LAB) | | | SERVICES, | | | | | | [facility] | | | | | [facility] + | | | | | | HEALING | | + +---------+ + + + | BUN, PLASMA | 9 | 6 - 20 mg/dL | [facility] | | | (LAB) | | | LABORATORY | | | | | | SERVICES, | | | | | | [facility] | | | | | | [facility] + | | | | | | HEALING | | + +---------+ + + + | CREATININE | 0.85 | 0.60 - 1.10 | [facility] | [...] +---------+ + + + | SODIUM, | 135 (L) | 136 - 145 | [facility] | [...] +---------+ + + + | CHLORIDE, | 98 | 97 - 108 mmol/L | [facility] [...] +---------+ + + + | CALCIUM, | 8.2 (L) | 8.6 - 10.2 | [facility] | [...] | + +---------+ + + + | BUN/CREATIN | 11 | 8 - 25 | [facility] | | | INE RATIO | | | LABORATORY | | | [...] MDRD equation recommended by the National | [facility] | | Kidney Disease Education Program. Estimated GFR Interpretive | LABORATORY | | Information: <60 mL/min/1.73 sq m Chronic Kidney | SERVICES, | | Disease <15 mL/min/1.73 sq m Kidney Failure | CENTER FOR | | Estimated GFR greater than 60 mL/min/1.73 sq m is of limited clinical | HEALTH + | | value. The MDRD equation is not valid in the following situations: | HEALING | | - Patients under 18 years of age - Severe malnutrition or obesity | | | - Vegetarian diet - Rapidly changing kidney function - Amputees, | | | paraplegics, or other muscle-wasting diseases | | + + + + + + + + | Performing | Address | City/State/Zipcode | Phone Number | | Organization | | | | + + + + + | [facility] | [address] | [place] [address] | | | SERVICES, [facility] | | | | | HEALTH + HEALING | | | | + + + + + ANTIBODY SCREEN (05/15/2020 9:04 AM PDT) + + + + + + | Component | Value | Ref Range | Performed | Pathologist | | | | | At | Signature | + + + + + + | Antibody | Negative | | [facility] | | | Screen | | | LABORATORY | | | | | | SERVICES, | | | | | | TRANSFUSION | | | | | | MEDICINE | | + + + + + + + + | Specimen | + + | Blood - Blood | | (substance) | + + + + + + + | Performing | Address | City/State/Zipcode | Phone Number | | Organization | | | | + + + + + | [facility] | [address] | [place] [address] | | | SERVICES, | [address] | | | | TRANSFUSION MEDICINE | | | | + + + + + ABO & RH TYPE (05/15/2020 9:04 AM PDT) + + + + + + | Component | Value | Ref Range | Performed | Pathologist | | | | | At | Signature | + + + + + + | ABO Group | A | | [facility] | | | | | | LABORATORY | | | | | | SERVICES, | | | | | | TRANSFUSION | | | | | | MEDICINE | | + + + + + + | Rh Type | Positive | | [facility] | | | | | | LABORATORY | | | | | | SERVICES, | | | | | | TRANSFUSION | | | | | | MEDICINE | | + + + + + + + + | Specimen | + + | Blood - Blood | | (substance) | + + + + + + + | Performing | Address | City/State/Zipcode | Phone Number | | Organization | | | | + + + + + | [facility] | [address] | [place] [address] | | | SERVICES, | [address] | | | | TRANSFUSION MEDICINE | | | | + + + + + HEMOGLOBIN A1C, BLOOD (05/15/2020 9:04 AM PDT) + + + + + + | Component | Value | Ref Range | Performed | Pathologist | | | | | At | Signature | + + + + + + | HEMOGLOBIN | 11.3 (H)Comment: Hgb A1C | <5.7 % | [...] + + + + | ESTIMATED | 278Comment: The | mg/dL | [facility] | | [...] | [facility] | | considered for monitoring penitentiary glycemic control in patients with: | LABORATORY [...] + + + + + | [facility] | [address] | [place] [address] | | | SERVICES, SPECIAL | [address] | | | | IMM + COAG | | | | + + + + + 12 LEAD ECG (05/15/2020 8:53 AM PDT) + + + + + + | Component | Value | Ref Range | Performed | Pathologist | | | | | At | Signature | + + + + + + | VENTRICULAR | 62 | bpm | [facility] | | | RATE | | | OF | | | | | | CARDIOLOGY | | + + + + + + | ATRIAL RATE | 62 | ms | [facility] | | | | | | OF | | | | | | CARDIOLOGY | | + + + + + + | P-R | 188 | ms | [facility] | | | INTERVAL | | | OF | | | | | | CARDIOLOGY | | + + + + + + | P AXIS | 13 | deg | [facility] | | | | | | OF | | | | | | CARDIOLOGY | | + + + + + + | QRS | 97 | ms | [facility] | | | DURATION | | | OF | | | | | | CARDIOLOGY | | + + + + + + | QT | 424 | ms | [facility] | | | | | | OF | | | | | | CARDIOLOGY | | + + + + + + | QTC-BAZETT | 432 | ms | [facility] | | | | | | OF | | | | | | CARDIOLOGY | | + + + + + + | QTC-RACHAEL | 429 | ms | [facility] | | | BR[place]ORD | | | OF | | | | | | CARDIOLOGY | | + + + + + + | R AXIS | -30 | deg | [facility] | | | | | | OF | | | | | | CARDIOLOGY | | + + + + + + | T AXIS | 58 | deg | [facility] | | | | | | OF | | | | | | CARDIOLOGY | | + + + + + + | ECG | Sinus rhythm | | [facility] | | | IMPRESSION | | | OF | | | | | | CARDIOLOGY | | + + + + + + | ECG | Low voltage, precordial | | [facility] | | | IMPRESSION | leads | | OF | | | | | | CARDIOLOGY | | + + + + + + | ECG | Consider anterior | | [facility] | | | IMPRESSION | infarct- BORDERLINE ECG | | OF | | | | - | | CARDIOLOGY | | + + + + + + | ECG | Electronically signed | | [facility] | | | IMPRESSION | by: ISAC DAVIS | | OF | | | | 05-16-2020 11:21:28 | | CARDIOLOGY | | + + [...] | + + + + + | [facility] | [address] | [place], [place] | | | CARDIOLOGY | [address] | [address] | | + + + + + from Last 3 Months Insurance + +--------+ +--------+ [...] + +--------+ | MEDICARE | MEDICA | [id number] | 09/15/19 | [phone] | [address] | Med[address] | | | RE A & | | [address] | [phone] | [address] | | | B | | sent | | [place], [place] | | | | | | | | [address] | | + +--------+ +--------+ + +--------+ | [employer] MEDICAID | [employer] | [id number] | | | | Medica | | [...] + +--------+ +--------+ + + | Jarvis Enrique | Person | Self [birth year] | [address] | | [place] | al/Alan | | 1980 | [phone] | [place] [address] | | | andrew | | | 3 (Home) | | + +--------+ +--------+ + + Advance Directives + + + + + | Type | Date Recorded | Patient | Explanation | | | | Distribution Lineman | | + + + + + | Advance | | | | | Directives and | | | | | Living Will | | | | + + + + + | Power of | | | | | Folding Machine Operator | | | | + + + + +
--- OUTSIDE RECORDS SUMMARY | ~2020-06-09 | XMS | Encounter Summary ---
Demographics + + + | Address | [address] | | | [place] [address] | + + + | Home Phone [...] Team Providers + +------+ + | Care Dish Stacker Name | Role | Phone | + +------+ + | Florian Martinez I | PCP | Unavailable | + +------+ + Reason for Visit Office Visit - E/M Services (Routine) +--------+ + + + + + | Status | Reason | Specialty | Diagnoses / | Referred By | Referred To | | | | | Procedures | Contact | Contact | +--------+ + + + + + | Closed | Specialty | Pediatrics / | Diagnoses | Lexx, | Sabina, | | | Services | [facility] | Lipidoses | DO Estiven | MD Fawad | | | Required | Metabolic | Procedures | [facility] | [address] | | | | | [place] | INTERNAL | [place] | | | | | OFFICE/OUTPT | MEDICINE | [address] [place], | | | | | | [address] | [place] | | | | | VISIT,EST,LE | [address] | [address] | | | | | [address] TO | [address] | | | | | | SEE SABINA | [place], | | | | | | ON | [place] [address] | | | | | | 07/14/2006 | Phone: | | | | | | | [phone] | | | | | | | Fax: | | | | | | | [phone] | | +--------+ + + + + + Encounter Details +--------+ + + + + | Date | Type | Department | Care Team | Description | +--------+ + + + + | 07/14/ | Office | [facility] at [facility] | Fawad Muhammad, | | | 2005 | Visit-ECX | [address] | | | | | St Mailcode: [facility] | | | | | | [facility] [place], [place] | | | | | | [address] | | | | | | [phone] | | | +--------+ + + + [...] + + + + | Weight | 130.5 kg (287 lb | 07/14/2006 2:52 PM | | | | 11.2 oz) | PST | | + + [...]
--- OUTSIDE RECORDS SUMMARY | ~2020-06-09 | XMS | Encounter Summary ---
Demographics + + + | Address | [address] | | | [place] [address] | + + + | Home Phone [...] Team Providers + +------+ + | Care Sod Farmer Name | Role | Phone | + +------+ + | Christina Rain MD | PCP | | + +------+ + Reason for Visit + +--------+ + | Reason | Onset | Comments | | | Date | | + +--------+ + | Medication | 11/01/ | ERT available | | management | 2011 | | + +--------+ + Encounter Details +--------+ + + + + | Date | Type | Department | Care Team | Description | +--------+ + + + + | 11/01/ | Telephone | [facility] at [facility] 7th | Fawad Muhammad, | Medication | | 2010 | | Floor [address] | | management (ERT | | | | St Mailcode: [facility] | | available) | | | | [place], [place] | | | | | | [address] | | | | | | [phone] | | | +--------+ + + + [...] Notes Telephone Encounter - Xenia Herzog - 11/01/2010 2:19 PM DIONNA talked to Jarvis. Andriy has be en in contact with her to let her know she was approved to restart enzyme. She should hear d etails next week. They were going to contact [facility] to ask if she should get the full 1 time d ose, of the 1/2 dose twice for the infusion.Electronically signed by Xenia Herzog at 2010 2:19 PM PSTdocumented in this encounter Plan of [...]
--- OUTSIDE RECORDS SUMMARY | ~2020-06-09 | XMS | Encounter Summary ---
Demographics + + + | Address | [address] | | | [place] [address] | + + + | Home Phone [...] Providers + +------+ + | Care Manager Sterile Name | Role | Phone | + +------+ + | Mikki Barajas MD | PCP | | + +------+ + Encounter Details +--------+ + + + + | Date | Type | Department | Care Team | Description | +--------+ + + + + | 05/10/ | Telephone | Preoperative | Danika, | | | 2019 | | Medicine Clinic at | [address] | | | | | [facility] | [facility] | | | | | [address] | [place], [place] | | | | | [place] [facility] | [address] | | | | | and Healing, | | | | | | Building [address] | | | | | | [facility] [place] | | | | | | [address] | | | | | | [phone] | | | +--------+ + + + [...] this encounter Miscellaneous Notes Telephone Encounter - Vanessa Garnica RN - 05/10/2020 11:57 AM PDTPatient scheduled to have pre-operative exam with the [facility] on May 15, in prepara tion for an upcoming surgery with Dr. Cho on June 05. Per office visit with Dr. Minerva Nguyen 07/06/2019, patient was to have had an echocardiogram before having bariatric surger y, as patient has not had one since 2009. Patient also reported "SOB, CP, palpitations duri ng exertion, and sometimes w/CP out of the blue." Reached out to office of patient's PCP, Mikki Barajas MD. Per their records, an echocardiogr am was ordered to be done locally in June but had not been completed yet. Chayo, the M A for Dr. Barajas was to follow up with Dr. Barajas about this and see if this could be re-order ed if necessary. d ocumented in this encounter Plan of Treatment +--------+ [...]
--- OUTSIDE RECORDS SUMMARY | ~2020-06-09 | XMS | Encounter Summary ---
Demographics + + + | Address | [address] | | | [place] [address] | + + + | Home Phone [...] Team Providers + +------+ + | Care Assembler Insulator Name | Role | Phone | + +------+ + | Gavinolizandro Estiven | PCP | | + +------+ + Reason for Visit + +--------+ + | Reason | Onset | Comments | | | Date | | + +--------+ + | Medication | 04/29/ | | | management | 2013 | | + +--------+ + Encounter Details +--------+ + + + + | Date | Type | Department | Care Team | Description | +--------+ + + + + | 04/29/ | Telephone | [facility] at [facility] 7th | Benny Hernandez MD | Medication | | 2013 | | Floor [address] | [address] [facility] | management | | | | St Mailcode: [facility] | [facility] | | | | | [place], [place] | [place], [place] | | | | | [address] | [address] | | | | | [phone] | [phone] | | | | | | | [...] this encounter Miscellaneous Notes Telephone Encounter - Rosenda Xenia - 04/29/2014 10:01 AM PDTRcv'd msg on voicemail from Angelina shepherd yesterday. She wants us to call the pcp's office and get them to sign the orders needed for her infusion. I called and left detailed msg at pcp's office that she should still be getting her infusions, at previous dose as indicated, UNTIL (as noted on orders template fax ed by Shaina) approval is rec'vd for increase dose. It does not help she is not getting her infusions. documented in this encount er Plan of [...]
--- OUTSIDE RECORDS SUMMARY | ~2020-06-09 | XMS | Encounter Summary ---
Demographics + + + | Address | [address] | | | [place] [address] | + + + | Home Phone [...] Team Providers + +------+ + | Care Utility Worker Forge Name | Role | Phone | + +------+ + | Lexx Estievn | PCP | | + +------+ + Reason for Visit + +--------+ + | Reason | Onset | Comments | | | Date | | + +--------+ + | Medication | 02/04/ | | | management | 2015 | | + +--------+ + Encounter Details +--------+ + + + + | Date | Type | Department | Care Team | Description | +--------+ + + + + | 02/04/ | Telephone | [facility] at [facility] 7th | Shaina Barrett | Medication | | 2016 | | Floor [address] [place] | management | | | | St Mailcode: [facility] | | | | | | [place], [place] | | | | | | [address] | | | | | | [phone] | | | +--------+ + + + [...] Telephone Encounter - Shaina Barrett FNP - 02/09/2016 3:44 PM PDT Prior authorization extended to 09-15-16 Authorization number [id number]. TC to patient to discuss and share information. [employer] team notified. NICHOLE Sutton, MPH, [facility]- Nurse Practitioner, Metabolic Clinic elephone Xenia Roca - 02/05/2016 8:52 AM PDTRcv'd call from Jarvis. She talked to Shaina on Friday and still isn't sure where we are at with the submitted PA. She tried calling ins c o herself and was told they are unable to give her information, that it needed to go back to the provider requesting the PA. I did not see any documentation from Shaina. I still have the paperwork in my pending auth's folder. I called [facility]) spoke with Lexus Rincon and they rcv'd our fax for the PA on January 22. I t was a con't of care and was sent to review nurses. Nothing in system yet. She came back online (and said the PCP's office was also calling in about the same PA). Said it has not karl rivera acted on. She said PA's are taking 14-24 business days. She was emailing the PA as a r ush today, but with [facility] plans they have 3 business days for [employer] approvals. She said it is a first in line system with those. She cannot tell me where this request is at in that syst em. We may or may not hear back today. I explained again the pt has a 2pm appt and has mis sed previous infusions due to this PA issue. I did ask her, and explained Jarvis said she christensen d called them and was told they could not give her information if it was approved or not. Diana francis said that is not true. They will tell her if it has been received, in process, or appr suni/denied. I called Jarvis. Also explained to her that they WILL tell her if it was approved or denied or where it was in the system. They cannot tell her the diagnosis or the procedure being a pproved, but if she calls and tells them what PA she is asking about they can give her some info. I told Jarvis she may need to call the infusion place and discuss if they need to cancel tod ay and schedule for later in the week. documented in this encount er Plan of [...]
--- OUTSIDE RECORDS SUMMARY | ~2020-06-09 | XMS | Encounter Summary ---
Demographics + + + | Address | [address] | | | [place] [address] | + + + | Home Phone [...] Providers + +------+ + | Care Lead Javascript Developer Name | Role | Phone | + +------+ + | Mikki Barajas MD | PCP | | + +------+ + Reason for Visit + +--------+ + | Reason | Onset | Comments | | | Date | | + +--------+ + | Medication | 05/11/ | | | | 2019 | | + +--------+ + Encounter Details +--------+ + + + + | Date | Type | Department | Care Team | Description | +--------+ + + + + | 05/11/ | Telephone | [facility] | Eber Cho, | Medication | | 2019 | | [place] [phone] | MD [address] | | | | | [address] | [place], [place] | | | | | for Health and | [address] | | | | | [place], [facility] | | | | | | [place], [place] | | | | | | [address] | | | | | | | [...] this encounter Miscellaneous Notes Telephone Encounter - Maddie Alba - 05/11/2020 2:34 PM PDTPerson calling? (Patient , spouse, caregiver, medical office, etc): Jarvis the patient Reason for call: Last time pt was in and seen Tammie they had talked about a power and a pi ll that she could take for the yeast. Pt is wanting to know if that was sent in and to what pharmacy. Seeking call back Provider / Specialty: Tammie Call back number confirmed?: YES Best call back number / ext: / noted under contact or phone tab. Caller would like a call back to discuss. Ok to leave a detailed message?: Yes documented in this en counter Plan of [...]
--- OUTSIDE RECORDS SUMMARY | ~2020-06-09 | XMS | Encounter Summary ---
Demographics + + + | Address | [address] | | | [place] [address] | + + + | Home Phone [...] Team Providers + +------+ + | Care Calender Inspector Name | Role | Phone | + [...] as of this encounter Progress Notes Interface, Automotive Shop Foreman In - 04/14/2005 8:10 AM [place] [address] [place] [address] or April 30, 2004 Tera Delarosa M.D. [address] [address] RE: JARVIS ENRIQUE MR #: [id number] Dear Dr. Delarosa: We saw your patient Jarvis Enrique in the Metabolic Clinic at [facility] at [facility] on April 30, 2004. [...] was also seen by Lucio Cheng, research case management assistant for enrollment in the Fabry Database Registry. Mine was primarily a counseling visit. I spent 60 minutes in upgh-fy-latk contact with Ms. Enrique, more than half [...] discuss her care. Sincerely, Fawad Muhammad M.D. Chain Maker of Pediatrics and Molecular Medical Genetics e-mail:[email or web address] [place] / LEANNE [id number] / [id number] / [id number] / Tdocumented in this encounter Plan of Treatment +--------+ [...]
--- OUTSIDE RECORDS SUMMARY | ~2020-06-09 | XMS | Encounter Summary ---
Demographics + + + | Address | [address] | | | [place] [address] | + + + | Home Phone [...] Author + + + | Author | [facility] | | | and [place] | + + + | Organization | [facility] | | | and [place] | + + + | Address | Unknown | + + + | Phone | Unavailable | + + + Support + + + + + | Name | Relationship | Address | Phone | + + + + + | Jordyn Sharmaves | ECON | NONE | | | | | [place] [address] | | + + + + + | Jordyn Sharmaves | ECON | NONE | | | | | [place] [address] | | + + + + + Care Team Providers + +------+ + | Care Cashier General Name | Role | Phone | + +------+ + PCP | Unavailable | + +------+ + Encounter Details +--------+ + + + + | Date | Type | Department | Care Team | Description | +--------+ + + + + | 01/26/ | Hospital | [facility] | Atilio Grover, | | | 2004 | Encounter | [facility] | [address] | | | | | [facility] [place] | | | | | [place], | [place] [address] | | | | | [place] [address] | [phone] | | | | | [phone] | | | +--------+ + + + [...]
--- OUTSIDE RECORDS SUMMARY | ~2020-06-09 | XMS | Encounter Summary ---
Demographics + + + | Address | [address] | | | [place] [address] | + + + | Home Phone | | + + + | Preferred Language | Unknown | + + + | Marital Status | Single | + + + | Oriental Orthodox Affiliation | Unknown | + + + | Race | White | + + + | Ethnic Group | Not or | + + + Author + + + | Author | [facility] | | | and [place] | + + + | Organization | [facility] | | | and [place] | + + + | Address | Unknown | + + + | Phone | Unavailable | + + + Support + + + + + | Name | Relationship | Address | Phone | + + + + + | Jordyn Sharmaves | ECON | NONE | | | | | [place] [address] | | + + + + + | Jordyn Sharmaves | ECON | NONE | | | | | [place] [address] | | + + + + + Care Team Providers + +------+ + | Care Rv Parts And Service Director Name | Role | Phone | + +------+ + PCP | Unavailable | + +------+ + Encounter Details +--------+ + + + + | Date | Type | Department | Care Team | Description | +--------+ + + + + | 10/12/ | Hospital | [facility] | | Genetic Counseling | | 2009 | Encounter | CONVERSION DEP [address] | | | | | | [place], [place] | | | | | | [address] | | | | | | [phone] | | | +--------+ + + + [...]
--- OUTSIDE RECORDS SUMMARY | ~2020-06-09 | XMS | Encounter Summary ---
Demographics + + + | Address | [address] | | | [place] [address] | + + + | Home Phone [...] Providers + +------+ + | Care Bowling Alley Manager Name | Role | Phone | [...] | | | | | | | [facility] [place] | | | | | | | [address] | | | | | | | Phone: | | | | | | | [phone] | | | | | | | Fax: | | | | | | | [phone] | +--------+--------+ + + + + Encounter Details +--------+---------+ + + + | Date | Type | Department | Care Team | Description | +--------+---------+ + + + | 01/22/ | Office | [facility] at [facility] 7th | Michell Muhammad, | Fabry disease (HCC) | | 2010 | Visit | Floor [address] MD | (Primary Dx) | | | | St Mailcode: [facility] | | | | | | [facility] [place], [place] | | | | | | [address] | | | | | | [phone] | | | +--------+---------+ + + + [...] to help with insurance approval for Fabrazyme. [phone]. Will need PCPs office to help with that also. MICHELL MUHAMMAD MD Professor, Pediatrics and Molecular and Medical Genetics [facility], [address] [id number] Email: [email or web address] documented in this encounter Progress Notes Chelsea Edwards PA-C - 01/22/2011 4:02 PM PDT CC/Patient Profile Jarvis is seen today by myself and Dr. 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 She is here with her mother, and her 11 month old son wh o has an appointment today as well. Son [...] echocardiogram, locally. 5. Will obtain records from certified caregiver exam done 04/2010. 3. Follow up in metabolic clinic in six months given Jarvis's increased symptoms and restart ing medication. salvage determiner, once Fabrazyme restarted, follow up may be ok annually, especiall y as patient lives [place] drive away in [facility]. WICHO YUSUF, PA-C [facility] & [address], [place] [address] Email: [email or web address] MICHELL MUHAMMAD MD Professor, Pediatrics and Molecular [place] [address] Email: [email or web address] - 01/13 12:59 PM PDTTaking something for bladder infection (to numb) does not know nameElectr onically signed by Xenia Herzog at 01/22/2011 12:59 PM PDTdocumented in this encounter Miscellaneous Notes Scan - Other, Faculty - 06/17/2011 9:26 PM PDTElectronically signed by Faculty Other at 9:26 PM PDTScan - Other, Faculty - 01/22/2011 12:00 AM PDT can - Other, Faculty - 01/22/2011 12:00 AM PDT can - Other, Faculty - 01/22/2011 12:00 AM PDT can - Unknown - 05/10/2 011 12:00 AM PDT documented in this encounter Plan [...] At | + + + | [facility] | [facility] | | [address] [address] [address] [place] | REGIONAL | | [address] | LABORATORY | + + + + + + + + | Performing | Address | City/State/Zipcode | Phone Number | | Organization | | | | + + + + + | [facility] | [address] | [place] [address] | | | LABORATORY | | | [...] | + + + + + | [facility] | [address] [facility] | [place] [address] | | | PATHOLOGY | [address] [...] | | | DEPARTMENT | | | [place] | | | OF | | | [...] | + + + + + | [facility] DEPARTMENT OF | [address] | [place] [address] | | | PATHOLOGY | [address] [...] | + + + + + | [facility] | [address] | [place] [address] | | | PATHOLOGY | [address] | | | + + + + + documented in this encounter Visit Diagnoses + + | Diagnosis | + + | Fabry disease (HCC) - Primary Lipidoses | + + documented in this encounter"
--- OUTSIDE RECORDS SUMMARY | ~2020-06-09 | XMS | Encounter Summary ---
Demographics + + + | Address | [address] | | | [place] [address] | + + + | Home Phone [...] Team Providers + +------+ + | Care Crisis Manager Name | Role | Phone | + +------+ + | Lexx Estiven | PCP | | + +------+ + Reason for Visit + + + | Reason | Comments | + + + | Medicare | | | Certification | | + + + Encounter Details +--------+---------+ + + + | Date | Type | Department | Care Team | Description | +--------+---------+ + + + | 02/03/ | Office | [facility] | Emma Beckwith PT | Morbid obesity, | | 2017 | Visit | Therapy Services at | [address] | unspecified obesity | | | | [facility] | [address] [place], | type (HCC) (Primary | | | | [address] | [place] [address] | Dx); Physical | | | | [facility] | [phone] | deconditioning | | | | and Healing, | | | | | | Building [address], 1st | | | | | | Floor [place], [place] | | | | | | [address] | | | | | | [phone] | | | +--------+---------+ + + + [...] this encounter Last Filed Vital Signs + +---------+ + + | Vital Sign | Reading | Time Taken | Comments | + +---------+ + + | Blood Pressure | 113/70 | 02/03/2017 1:04 PM | | | | | PDT | | + +---------+ + + | Pulse | 75 | 02/03/2017 1:04 PM | | | | | PDT | | + +---------+ + + | Temperature | - | - | | + +---------+ + + | Respiratory Rate | - | - | | + +---------+ + + | Oxygen Saturation | - | - | | + +---------+ + + | Inhaled Oxygen | - | - | | | Concentration | | | | + +---------+ + + | Weight | - | - | | + +---------+ + + | Height | - | - | | + +---------+ + + | Body Mass Index | - | - | | + +---------+ + + documented in this encounter Progress Notes Emma Beckwith, PT - 02/03/2017 1:00 PM PDT Insurance: Payor: MEDICARE / Plan: MEDICARE A & B / Product Type: Medicare / Medicare: Cosigning this note indicates that I agree with the proposed therapy treatment pl an [facility] PHYSICAL THERAPY EVALUATION Past Medical History: Diagnosis Date Abdominal pain Depression Diabetes (HCC) Dizziness Fabry's disease (HCC) GERD (gastroesophageal reflux disease) HBP (high blood pressure) Headache Intertriginous candidiasis Kidney disease Lipidoses 07/01/2005 Obsessive compulsive disorder Port catheter in place SOB (shortness of breath) TMJ (dislocation of temporomandibular joint) Past Surgical History Procedure Laterality Date Cholecystectomy 11/2008 Appendectomy 04/2009 ruptured, hospitalized 21 days section 02/09/2010 emergency Tubal ligation 02/09/2010 Oophorectomy, left 08/2012 Due to cysts Hysterectomy, partial early 09/2012 Salpingo-oophorectomy, right later 09/2012 and left salpingectomy, due to cysts Central line placement 04/2013 Had portacath replaced, now on the right side. 02.03.2017 to be moved Current Outpatient Prescriptions: acetaminophen 325 mg Oral [...] mouth once daily., Disp: , Rfl: 1 ergocalciferol 50,000 unit oral capsule, Take 1 capsule by mouth every seven days. Indicati ons: Vitamin D Deficiency (High Dose Therapy), Disp: 52 capsule, Rfl: 0 estradiol 1 mg oral tablet, , Disp: , Rfl: 1 ferrous gluconate 240 mg total salt (27 mg elemental iron) oral tablet, Take 2 tablets by m outh once daily. Take with 500 mg of Vit c Indications: low ferritin, Disp: 60 tablet, Rfl: 5 glipiZIDE ER 10 mg oral tablet [...] oral capsule, Take 75 mg by mouth three times daily., Disp: , Rfl: 0 MELOXICAM (MOBIC [...] 1.8 mg under the skin (SUBC) once daily., Disp: , Rfl: 1 Previous physical therapy treatment or alternative treatments for this condition includes f or this condition includes: none. Results of previous treatment: N/A. Concurrent medical treatment: Bariatric Dept. [facility] PHYSICAL THERAPY EVALUATION History of Presenting Problem: Pt is here for Prehabilitation evaluation prior to Bariatric abdominal surgery. She plans to have gastric sleeve abdominal surgery . Current PA: walks 2x day 15 minutes / 15 minutes total 30 min am 30 min pm. Pain Reported in location of legs an feet, neuropathy. Pain is a 4 on a scale of 0-10. Pain is: intermittent. states their pain is sharp. Like walking on pins/needles The pain is worst in morning/evening. Current functional Status: The following activities aggravate the pain: walking. The pain limits the 's ability to wal k. The pain is relieved by rest. sleep is interrupted by the pain occasionally. sleeps 8 -10 hours per night and wakes rested. Current stress level is high. Current stressors are dtr with 2 children. Patient's current occupational status: disabled. lives mother, children and grand-dtr. Living situation/environment is limiting function: 2 level Equipment at home: treadmill - does use it. Requests family members or friends involved with rehabilitation therapy: No Anxieties or concerns about therapy: no Patient's goals are to: be more active with children and grandchildren. OBJECTIVE: EXAM: Vitals: 113//70 Pulse 75 Weight: 370 lbs ROM: MMT: 01/17 Balance/Coordination: - rhomberg eyes closed , - tandom walking, able to walk on toes/heels , unilateral balance right (seconds) 10 and unilateral balance left (seconds) 10 Squat - unable. Outcome Measures: Outcome measure Score 02/03/2017 Interpretation Goal at 12 weeks 30 sec sit to stand 14 Normal values: 30 y/o = 30 reps 40 y/o = 25 reps 50 y/o = 20 reps 60 y/o = 15 reps 70 y/o = 13 reps 80 y/o = 12 reps 90 y/o = 10 reps 30 sec sit to stand: 25 6 min walk test: Vitals at rest: BP 113//70 Pulse 75 Vitals at end of walk test: 105 132/84 mmHg Distance walked: 1210 feet Assistive device: none Deviations: none Seated/standing breaks: one (Track = 110') Rate of perceived Exertion(10pt scale): moderate 6-Minute Walk Test Distances: Means and Standard Deviations by Age and Gender (Meters/Feet) Age Gender (N) Mean SD Normal Range (2SD) 60-69 Male (15) Female (22) 572m/1877' 538/1765' 92m/269' 92m/269' 388-756m 354-722m 70-79 Male (14) Female (22) 527m/1729' 471m/1545' 85m/279' 75m/246' 357-697m 321-621m 80-89 Male (8) Female (15) 417m/1368' 392m/1286' 73m/240' 85m/279' 271-563m 222-562m Manuelito Steinberg (2000) Functional assessment: A literature review of four tools. Focus: Keyur villafana Physical Therapy: An Independent Home Study Course for Individual Continuing Education. Treatment: Therapeutic exercises:15 minutes Intervention Date* Comments Compliance 02/03/2017 Predicted: good Progressive walking program 02/03/2017 Instructions and handout provided General light strengthening/stretching exercises 02/03/2017 Instructions and handout provi ded Logroll instruction 02/03/2017 Instructions and handout provided Abdominal precautions instruction 02/03/2017 Instructions and handout provided * indicates date intervention started. see comments for details of compliance, modification s, deletions ASSESSMENT: Patient is a referred to PT for prehabilitation evaluation prior to Bariatric a bdominal surgery. Patient exam findings include decreased ROM, decreased strength, decreased activity tolerance and physical deconditioning. Scored low on functional tests. Symptoms ar e limiting patient with daily and functional activities including: walking for wellness, squ atting to floor. Best evidence practice recommends obese pt's with knee pain lose 5% of their wt doing non-w t bearing activities prior to doing wt bearing activities to avoid progress on OA. Patient has been provided with instruction on appropriate exercise and pain control strateg ies to increase aerobic PA to prepare for major bariatric abdominal surgery. LONG-TERM GOALS: Discussed with . Due in 12 weeks. Aerobic PA 30 minutes per day, all days(may be three 10 minute or two 15 minute bouts) Performing strengthening exercises 3x/wk. Independent with home exercise program. Goals discussed with . Individual cultural needs addressed. Condition Specific Evaluation: Including Body functions, Body structures and Impairments Pain: pain is a significant clinical problem See topics above to identify problem areas and goals Critical behavior/Cognitive Status: Affect : appropriate and cooperative Learning Barriers: none. Social issues that might affect completion of set goals and treatment plan none Patient's knowledge of disease process: Good . Personal factors/Comorbidities; High Justification: see [facility] Body structures & functions, Activity limitations, participation restrictions: Moderate - 3 or more Justification: obesity, functional weakness LE - unable to squat to floor, poor wa lking endurance Stability of condition: Moderate - Evolving Decline of condition Clinical decision making: Moderate - Moderate complexity: Moderate level of skill to determ ine plan of care and implement changes accordingly Complexity: Moderate - 67993 The patient requires services that can be safely and effectively performed only by a quali fied therapist to address the aforementioned and highlighted problems and goals. Goals discussed and agreed upon with patient and/or family. Individual cultural and social needs addressed. Rehab Potential: Good, if Jarvis carries through with home exercise program. This note is to serve as the discharge summary if the patient fails to attend further Physi fransico Therapy appointments or contact the therapist regarding any change in their status. Emma Beckwith, PT [facility] AT [facility] 1ST FLOOR Scheduled Appointment time: 1:00 PM Treatment began: 1300 Treatment ended: 1345 Patient was seen for a total of 45 minutes of treatment time. 45 minutes was in direct cont act care as described above and on completed flow sheets. Treatment Interventions duration in minutes: Procedure:Physical Therapy Evaluation and Ther apeutic Exercise 15 min PLAN OF CARE (Established 02/03/2017 to be updated every 30 days): Treatment Plan Summary: PLAN OF CARE: Follow up with PT if needed. Aerobic PA Strengthening exercises Stretching exercises Frequency: 1 Duration: 1 Total number of visits: 1 Minutes per session: 45 Procedure Codes: Therapeutic Exercise 14186 Referral information Authorizing Provider: Kathleen Adan NP, Onset/Referral Date: 7 Primary/Referral Diagnosis: E66.01 Morbid obesity, unspecified obesity type R53.81 Physical deconditioning Start of care: 02/03/2017 Service period from: 02/03/2017 to: 03/04/2017 Next progress report 03/05/2017 g code due by 04/07/2017 [id number] NV MOBILITY CURRENT STATUS Impairment 40-59 % [id number] PQRI MOBILITY GOAL STATUS Impairment 1-19 % Number visits authorized: 1 Number visits used: 1 Outcome Measure 02/03/2017 See flow sheet. documented in this encounter Plan of Treatment +--------+ + + + + | Date | Type | Specialty | Care Team | Description | +--------+ + + + + | 06/05/ | Procedure | Surgery | | | | 2021 | Pass | | | | +--------+ + + + + + + +--------+ + + | Name | Type | Priori | Associated Diagnoses | Order Schedule | | | | ty | | | + + +--------+ + + | NV MOBILITY CURRENT | Procedures | Routin | Morbid obesity, | Ordered: 02/06/2017 | | STATUS | | e | unspecified obesity | | | | | | type (HCC) Physical | | | | | | deconditioning | | + + +--------+ + + | PQRI MOBILITY GOAL | Procedures | Routin | Morbid obesity, | Ordered: 02/06/2017 | | STATUS | | e | unspecified obesity | | | | | | type (HCC) Physical | | | | | | deconditioning | | + + +--------+ + + documented as of this encounter Procedures + +--------+ + + + | Procedure Name | Priori | Date/Time | Associated Diagnosis | Comments | | | ty | | | | + +--------+ + + + | NV THERAPEUTIC | Routin | 02/06/2017 | Morbid obesity, | | | EXERCISES | e | 5:19 PM | unspecified obesity | | | | | PDT | type (HCC) Physical | | | | | | deconditioning | | + +--------+ + + + documented in this encounter Visit Diagnoses + + | Diagnosis | + + | Morbid obesity, unspecified obesity type (HCC) - Primary | + + | Physical deconditioning Debility, unspecified | + + documented in this encounter"
--- OUTSIDE RECORDS SUMMARY | ~2020-06-09 | XMS | Encounter Summary ---
Demographics + + + | Address | [address] | | | [place] [address] | + + + | Home Phone [...] Team Providers + +------+ + | Care Resident Physician Name | Role | Phone | + +------+ + | Lexx Estiven | PCP | | + +------+ + Encounter Details +--------+ + + + + | Date | Type | Department | Care Team | Description | +--------+ + + + + | 04/24/ | Telephone | Metabolic Genetics | Genny Hagan | | | 2018 | | at [facility] | B, [address] [facility] | | | | | [address] [facility] | [facility] | | | | | [place] | [place], [place] | | | | | [facility] | [address] | | | | | [address] [place] [address], | [phone] | | | | | [place] [address] | | | | | | [phone] | | | +--------+ + + + [...] Telephone Encounter - Genny Hagan FNP - 04/24/2018 10:48 AM Carlosloraine has not heard anything back from [employer] for financial assistance for her lab work. Her preference at this po int is to just come here in June for her annual provider appointment (would otherwise hav e been in Oct) and get her labs drawn here on that same day. I will let Deidre Nguyen know, and email Josefina to schedule patient for provider appt and lab draw in June. I also asked her to please PublikDemandhart me when she has her PublikDemandhart reset. documented in this encounter Plan of Treatment [...]
--- OUTSIDE RECORDS SUMMARY | ~2020-06-09 | XMS | Encounter Summary ---
Demographics + + + | Address | [address] | | | [place] [address] | + + + | Home Phone [...] Team Providers + +------+ + | Care Receivables Specialist Name | Role | Phone | + +------+ + | Estiven Hallman | PCP | | + +------+ + Reason for Visit + +--------+ + | Reason | Onset | Comments | | | Date | | + +--------+ + | Prior Authorization | 01/08/ | Needed for Fabryzyme | | Request - Medication | 2016 | | + +--------+ + Encounter Details +--------+ + + + + | Date | Type | Department | Care Team | Description | +--------+ + + + + | 01/08/ | Telephone | Molecular and | Benny Hernandez MD | Prior Authorization | | 2017 | | Medical Genetics at | [address] [facility] | Request - Medication | | | | [address] [facility] | [facility] | (Needed for | | | | Dr Wick/[id number] | [place], [place] | Fabryzyme) | | | | [facility] | [address] | | | | | [place], [place] | [phone] | | | | | [address] | | | | | | [phone] | | | +--------+ + + + [...] Notes Telephone Encounter - Xenia Herzog - 01/08/2017 3:23 PM PDTPt called; she changed her rx coverage through Medicare (the previous company wouldn't cover her diabetic medds) and she now has [employer]. She just received a letter stating Fabryzyme is not on their formulary. Kahlil perrin need to submit a prior auth request. RX GODFREY: [id number] Subscriber: [id number] Group: [id number] Grip: [id number] Told her I would complete the paperwork and fax to [employer] documented in this encounter Plan of Treatment [...]
--- OUTSIDE RECORDS SUMMARY | ~2020-06-09 | XMS | Encounter Summary ---
Demographics + + + | Address | [address] | | | [place] [address] | + + + | Home Phone [...] Team Providers + +------+ + | Care Product Craftsman Name | Role | Phone | + +------+ + | Ricky Sinclairarekody GÓMEZ | PCP | | + +------+ + Reason for Visit + + + | Reason | Comments | + + + | Medication | Fabrazyme has been approved | | management | | + + + Encounter Details +--------+ + + + + | Date | Type | Department | Care Team | Description | +--------+ + + + + | 01/04/ | Documentati | [facility] at [facility] 7th | Shaina Barrett | Medication | | 2012 | on | Floor [address] | management | | | | St Mailcode: [facility] | | (Fabrazyme has been | | | | [facility] [place], [place] | | approved) | | | | [address] | | | | | | [phone] | | | +--------+ + + + [...] Telephone Encounter - Shaina Barrett FNP - 01/04/2013 11:18 AM PDTFabrazyme approved by [employer] for 6 months (12-14-2012 to 06-15-2013[place] [id number]. TC to patient to let her know of the status. She has appointment with Dr. Rain on Dec. TC to Dr. Rain's office, only administrative staff in the office today. I will call in t he AM and speak with Dr. Briseyda Vines's metal forger's assistant. . I will resend orders for patient also at that time. documented in th is encounter Plan of [...]
--- OUTSIDE RECORDS SUMMARY | ~2020-06-09 | XMS | Encounter Summary ---
Demographics + + + | Address | [address] | | | [place] [address] | + + + | Home Phone [...] Providers + +------+ + | Care Cloth Beamer Name | Role | Phone | + +------+ + | Lexx Estiven | PCP | | + +------+ + Reason for Visit +--------+--------+ + | Reason | Onset | Comments | | | Date | | +--------+--------+ + | Pain | 09/17/ | | | | 2018 | | +--------+--------+ + Encounter Details +--------+ + + + + | Date | Type | Department | Care Team | Description | +--------+ + + + + | 09/17/ | Telephone | [facility] at [facility] 7th | Benny Hernandez MD | Pain | | 2018 | | Floor [address] | [address] | | | | | St Mailcode: [facility] | Davin Alfonso | | | | | [place], [place] | [place], [place] | | | | | [address] | [address] | | | | | [phone] | [phone] | | | | | | | [...] this encounter Miscellaneous Notes Telephone Encounter - La SalXenia leach - 09/17/2017 2:25 PM PSTPatient called and said her P CP is refusing to refer her to a pain clinic. She wants us to refer her. 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 She said the re is a pain clinic in [place] and in [place]. She called the pain clinic and they to ld her to call us. Although, after talking to her she said "it's been awhile since I talked to them". She said she was about a week late in getting her infusion and now she can't wear snow boot s or shoes as her feet her so bad. She then stated she also has Medicare and shouldn't need to use the MACHINE SETUP OPERATOR Medicaid. I told h er I was not an insurance person, and I really do not know all the details but she should ca ll the pain clinic again and request an appointment and make sure they take Medicare. I emilio d her if they just need a note faxed from us, or a previous dictation, outlining her diagnos is, we can provide that. Jarvis will let me know. documented in this encount er Plan of [...]
--- OUTSIDE RECORDS SUMMARY | ~2020-06-09 | XMS | Encounter Summary ---
Demographics + + + | Address | [address] | | | [place] [address] | + + + | Home Phone [...] Team Providers + +------+ + | Care Acting Section Chief Name | Role | Phone | + +------+ + | Estiven Hallman DO | PCP | | + +------+ + Reason for Visit + +--------+ + | Reason | Onset | Comments | | | Date | | + +--------+ + | Medication | 11/11/ | Missed infusions | | management | 2019 | | + +--------+ + Encounter Details +--------+ + + + + | Date | Type | Department | Care Team | Description | +--------+ + + + + | 11/11/ | Telephone | Metabolic Genetics | Deidre Nguyen MD | Medication | | 2019 | | at [facility] | [address] [facility] | management (Missed | | | | [address] | [address] [place], | infusions) | | | | [place] | [place] [address] | | | | | [facility] | [phone] | | | | | 7th Floor [place], | | | | | | [place] [address] | | | | | | [phone] | | | +--------+ + + + [...] Notes Telephone Encounter - Xenia Herzog - 11/11/2018 3:30 PM PSTSpoke with CHYNA Simpson- ) She stated it is very common for them to miss infusions and usually only makes one ou t of 3 visits or so. She looked at recent dates they had infusions: I did verify they do no t have a visit on the books at this point and they rely on mom to call and make the infusion appointments. Infusion was 10/21/18. 09/22/18 . 08/19/18 (before that 06/22/18- although I think they were doi ng home infusions or something for awhile) [facility] Plan of Treatment +--------+ + + [...]
--- OUTSIDE RECORDS SUMMARY | ~2020-06-09 | XMS | Encounter Summary ---
Demographics + + + | Address | [address] | | | [place] [address] | + + + | Home Phone [...] Providers + +------+ + | Care Senior Sas Developer Name | Role | Phone | + +------+ + | Lexx Estiven | PCP | | + +------+ + Encounter Details +--------+ + + + + | Date | Type | Department | Care Team | Description | +--------+ + + + + | 10/09/ | Documentati | [facility] at [facility] 7[facility] | Marcellus Rodriguez MD | | | 2018 | on | Floor [address] | [address] [facility] | | | | | St Mailcode: [facility] | [facility] | | | | | [facility] [place], [place] | [place], [place] | | | | | [address] | [address] | | | | | [phone] | [phone] | | | | | | | [...] | + +--------+ + + + | GL-3 | Routin | 06/16/2017 | | Results for this | | | e | | | procedure are in the | | | | | | results section. | + +--------+ + + + documented in this encounter Results GL-3 (06/16/2017) + +-------+ + + + | Component | Value | Ref Range | Performed | Pathologist | | | | | At | Signature | + +-------+ + + + | GL-3 | 2.0 | <7.0 ug/mL | NON [facility] | | | | | | LAB | | + +-------+ + + + + + | Specimen | + + | | + + + +---------+ + + | Performing | Address | City/State/Zipcode | Phone Number | | Organization | | | | + +---------+ + + | NON [facility] | | | | + +---------+ + + documented in this encounter Visit Diagnoses Not on filedocumented in this encounter"
--- OUTSIDE RECORDS SUMMARY | ~2020-06-09 | XMS | Encounter Summary ---
Demographics + + + | Address | [address] | | | [place] [address] | + + + | Home Phone [...] Team Providers + +------+ + | Care Local Az Truck Driver Name | Role | Phone | + +------+ + | Mikki Barajas MD | PCP | | + +------+ + Reason for Referral PROC - Inpatient Surgery (Routine) + +--------+ + + + + | Status | Reason | Specialty | Diagnoses / | Referred By | Referred To | | | | | Procedures | Contact | Contact | + +--------+ + + + + | Authorized | | Surgery | Diagnoses | Tammie, | Tammie, | | | | | Severe | Eber Cornell MD | Eber Cornell MD | | | | | obesity (BMI | [address] | | | | | >= 40) | [address] | Ave | | | | | ([facility]) | [place], [place] | [place] | | | | | Procedures | [id number] | [phone] | | | | | REQUEST TO | Phone: | Phone: | | | | | SURGERY | | | | | | | MOLDING TECHNICIAN | Fax: | Fax: | | | | | [place] [facility] | [phone] | [phone] | | | | | GASTRIC | | | | | | | BYPASS/FRANKLIN- | | | | | | | EN-Y | | | + +--------+ + + + + Reason for Visit + + + | Reason | Comments | + + + | Pre-op evaluation | | + + + Consultation (Routine) [...] | [facility] | | | with MANAGER INSTALLATION | | | | [facility] [address] | | | | | | [address] | | | | | | | [facility] | [facility] | | | | | | | [facility]aling, | | | | | | | [address] | | | | | | | [place], [place] | | | | | | | [address] | | | | | | | Phone: | | | | | | | | | | | | | | Fax: | | | | | | | [phone] | + + + + + + + Encounter Details +--------+---------+ + + + | Date | Type | Department | Care Team | Description | +--------+---------+ + + + | 04/21/ | Office | Digestive Health | Eber Cho, | Severe obesity (BMI | | 2020 | Visit | Center at [facility] [address] | MD [address] | >= 40) (HCC) | | | | [address] | [facility] [place] | (Primary Dx); DM | | | | for Health and | [address] | type 2 without | | | | Healing, [address] | | retinopathy ([facility]); | | | | [place], [place] | | Gastroesophageal | | | | [address] | | reflux disease | | | | [phone] | | without esophagitis; | | | | | | Fabry disease | | | | | | ([facility]); Benign | | | | | | essential HTN | +--------+---------+ + + + Social History [...] + + + | Blood Pressure | 104/84 | 04/21/2020 10:41 AM | | | | | PDT | | + + + + + | Pulse | 94 | 04/21/2020 10:41 AM | | | | | PDT | | + + + + + | Temperature | 36.8 C (98.2 F) | 04/21/2020 10:41 AM | | | | | PDT | | + + + + + | Respiratory Rate | - | - | | + + + + + | Oxygen Saturation | 97% | 04/21/2020 10:41 AM | | | | | PDT | | + + + + + | Inhaled Oxygen | - | - | | | Concentration | | | | + + + + + | Weight | 147.8 kg (325 lb | 04/21/2020 10:41 AM | | | | 12.8 oz) | PDT | | + + + + + | Height | 160 cm (5' 3") | 04/21/2020 10:41 AM | | | | | PDT | | + + + + + | Body Mass Index | 57.71 | 04/21/2020 10:41 AM | | | | | PDT | | + + + + + documented in this encounter Progress Notes Ratna House - 04/21/2020 11:00 AM PDTFormatting of this note might be different from the or iginal. [facility] Department of Surgery Red Surgery Consultation Note Author: Ratna House, MS4 ID Jarvis Miguel is a 40 y.o. female here to discuss surgical weight loss - conside ring sleeve gastrectomy, but open to bypass as well. SUBJECTIVE Jarvis Miguel is a 40 y.o. 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 She has lost over 75 lbs (405lbs 2.5 years ago) through PT and dietary changes, but has bee n unable to lose more weight - stable at 325 from 07/01/19 to 325 lbs today. Tries to walk d aily, but limited by leg/foot pain from Fabry's - at best walks about 1 miles, and about a b lock when having a flare. Also doing body grooving with neighbor daily. Has had GERD for 20 years, was previously on pepcid for many years without relief. She avoi ds spicy/acidy foods and has been on omeprazole for the past 3 years 20mg daily with no refl ux symptoms. Reports she had an EGD <10 years ago without esophagitis or Lyn's in [place] - unable to find report in records. Followed by medical genetics at [facility] for her Fabry's, infusions Q2 weeks. Fabry disease man ifesting with with GI symptoms (diarrhea with carbs, diet controlled), acroparesthesia (most limiting), and fatigue. Hearing loss is very mild, and no known kidney problems. Denies his tory of MICAH. She had an ECHO about a year ago in [place] but unable to access report. PMH: Past Medical History: Diagnosis Date Abdominal pain [...] facial pain/ never locked up on her Meds: acetaminophen 325 mg Oral tablet, Take 325 mg by mouth every four hours as needed. 2 tabs d aily for headaches. Indications: HEADACHE DISORDER Agalsidase Beta (FABRAZYME) 35 mg intravenous recon soln, Inject 140 mg into the vein (IV) every fourteen days. Indications: Fabry Disease amitriptyline 25 mg Oral Tablet, Take 75 mg by mouth once daily at bedtime. Pt reports taki ng three tablets once per day cholecalciferol (Vitamin D3) (VITAMIN D3) 2,000 unit oral capsule, Take 1 capsule by mouth once daily. ergocalciferol 50,000 unit oral capsule, Take 1 capsule by mouth every seven days. For 12 w eeks Indications: Vitamin D Deficiency (High Dose Therapy) hydrOXYzine pamoate 50 mg oral capsule, Take 50 mg by mouth as needed. insulin glargine 100 unit/mL subcutaneous solution, Inject 45 Units under the skin (SUBC) o nce daily in the morning. JANUVIA 100 mg oral tablet, Take 100 mg by mouth once daily. LATUDA 120 mg oral tablet, 120 mg once daily. NOVOLOG U-100 INSULIN ASPART 100 unit/mL subcutaneous solution, omeprazole 20 mg oral capsule,delayed release(DR/EC), Take 20 mg by mouth once daily at bed time. prazosin 2 mg oral capsule, Take 2 mg by mouth once daily at bedtime. propranolol 40 mg oral tablet, Take 40 mg by mouth three times daily. VICTOZA 2-DESTINEE 0.6 mg/0.1 mL (18 mg/3 mL) subcutaneous pen injector, Inject 1.8 mg under the skin (SUBC) once daily at bedtime. Centrum daily SocHx: She lives with her mother, her boyfriend and her children. On disabilty. No alcohol, no smoking, no rec drug use. SHx: Past Surgical History Procedure Laterality Date Cholecystectomy 11/2008 Appendectomy 04/2009 ruptured, hospitalized 21 days section 02/09/2010 emergency Tubal ligation 02/09/2010 Oophorectomy, left 08/2012 Due to cysts Hysterectomy, partial early 09/2012 Salpingo-oophorectomy, right later 09/2012 and left salpingectomy, due to cysts Central line placement 04/2013 Had portacath replaced, now on the right side. 02.03.2017 to be moved 4 c-sections R hand tendon repair L knee tendon repair OBJECTIVE BP 104/84 | Pulse 94 | Temp 36.8 C (98.2 F) | Ht 1.6 m (5' 3") | Wt 147.8 kg (325 l b 12.8 oz) | SpO2 97% | BMI 57.71 kg/m | BSA 2.56 m GENERAL: Well nourished, well developed and in no apparent distress, alert and active. HEENT: Grossly within normal limits. NECK: Supple, full range of motion. SKIN: No visible rashes. CHEST: Respirations even and unlabored. CARDIAC: Extremities warm and well perfused. ABDOMEN: Soft, nontender, nondistended, no mass, no hepatosplenomegaly. GROINS/: Deferred. EXTREMITIES: No edema, normal range of motion. NEUROLOGIC: Moves all extremities spontaneously. No apparent neurologic deficits. Cranial nerves 2-12 grossly intact. Gait symmetric and age appropriate. ASSESSMENT Jacob Walter is a 40 y.o. female who meets and/or exceeds NIH criteria for morbid obesit y and comorbidities related to obesity including DM2 on insulin, hypertension, GERD which ma y be improved with bariatric surgery. We discussed surgical options, including laparoscopic sleeve gastrectomy and laparoscopic R YGB. The patient has done extensive research and would like to decrease morbidity from daily insulin injections and GERD. We discussed at length the pros and cons of gastric sleeve and gastric bypass as they relate to her comorbidities, including more sustained weight loss an d diabetes management with RYGB however with the likely extensive adhesions due to prior abd ominal surgeries (ruptured appendix in particular) that could pose a technical surgical chal lenge. She also has history of diarrhea which may be worsened after the bypass given altered anatomy. While a sleeve gastrectomy would be a simpler and faster surgery, it has less evid ence for diabetes remission and with her longstanding GERD history, may worsen her symptoms. Given her comorbidities and desire to lose weight and have better diabetes management, deep ent chose to proceed with gastric bypass surgery. Discussed with the patient that based on a current BMI of 58 (325 lbs), the goals of surgery would be the reduction of this weight by 25-30% or 70-85 lbs at one year post op. The patient understands the critical role that strict adherence to a diet and exercise prog shin will play in reaching this goal. She expresses willingness to comply with the post-opera tive program, including adherence to diet and exercise recommendations. PLAN: 1. Plan for Franklin-en-Y gastric bypass with possible conversion to sleeve if adhesions preven t necessary access for anastomosis. 2. Consent obtained. 3. Pre-operative liver shrinking diet, partial meal replacement X 1-2 weeks, instructions p rovided. 4. Obtain EGD and echo results. Ratna House, MS4 Associated attestation - Eber Cho MD - 04/28/2020 4:45 PM PDTFormatting of this n ote might be different from the original. A student assisted with documenting this service. I saw the patient and reviewed and verifi ed all information documented by the student and made modifications to such information, whe n appropriate. BARIATRIC SURGERY INITIAL SURGEON VISIT DATE OF VISIT: 04/28/20 HISTORY: Jarvis Miguel is a 40 y.o. female who has failed prior attempts at sustain ed dietary/medical weight loss and desires surgical weight loss in order to "improve diabete s and other medical problems", be healthier. The patient presents today for discussion about bariatric surgery. We discussed surgical op tions, including laparoscopic sleeve gastrectomy and laparoscopic RYGB. She has been through the prescribed screening protocols as defined by the [facility] bariatric program including medic al, psychiatric and nutrition evaluations and meets criteria for surgery. The patient has d one extensive research and selected the laparoscopic RYGB as her procedure of choice. I discussed with the patient that based on a current BMI of 58 (325 lbs), I counseled the p atient that the goals of surgery would be the reduction of this weight by 25-35% or 80-114 l bs at one year post op. The patient understands the critical role that strict adherence to a diet and exercise prog shin will play in reaching this goal. She expresses willingness to comply with the post-oper ative program, including adherence to diet and exercise recommendations. Past Medical History: Diagnosis Date Abdominal pain [...] side. 02.03.2017 to be moved Current Outpatient Medications Medication Sig acetaminophen 325 mg Oral tablet Take 325 mg by mouth every four hours as needed. 2 tabs d aily for headaches. Indications: HEADACHE DISORDER Agalsidase Beta (FABRAZYME) 35 mg intravenous recon soln Inject 140 mg into the vein (IV) every fourteen days. Indications: Fabry Disease amitriptyline 25 mg Oral Tablet Take 75 mg by mouth once daily at bedtime. Pt reports taki ng three tablets once per day cholecalciferol (Vitamin D3) (VITAMIN D3) 2,000 unit oral capsule Take 1 capsule by mouth once daily. ergocalciferol 50,000 unit oral capsule Take 1 capsule by mouth every seven days. For 12 w eeks Indications: Vitamin D Deficiency (High Dose Therapy) hydrOXYzine pamoate 50 mg oral capsule Take 50 mg by mouth as needed. insulin glargine 100 unit/mL subcutaneous solution Inject 45 Units under the skin (SUBC) o nce daily in the morning. JANUVIA 100 mg oral tablet Take 100 mg by mouth once daily. LATUDA 120 mg oral tablet 120 mg once daily. NOVOLOG U-100 INSULIN ASPART 100 unit/mL subcutaneous solution omeprazole 20 mg oral capsule,delayed release(DR/EC) Take 20 mg by mouth once daily at bed time. prazosin 2 mg oral capsule Take 2 mg by mouth once daily at bedtime. propranolol 40 mg oral tablet Take 40 mg by mouth three times daily. VICTOZA 2-DESTINEE 0.6 mg/0.1 mL (18 mg/3 mL) subcutaneous pen injector Inject 1.8 mg under the skin (SUBC) once daily at bedtime. No current facility-administered medications for this visit. Allergies Allergen Reactions Augmentin [Amoxicillin-Pot Clavulanate] Nausea and Vomiting rash Doxycycline Rash Clarification Needed PEN V K Sulfa (Sulfonamide Antibiotics) Family History Problem Relation Heart Disease Mother V Fib, and has a AICD no history of cardiomyopathy Fabry's disease Mother Breast Cancer Maternal Grandmother Prostate Cancer Maternal Grandfather Social History Social History Narrative Not on file REVIEW OF SYSTEMS: All 14 systems reviewed and negative except as noted above. PHYSICAL EXAMINATION: BP 104/84 | Pulse 94 | Temp 36.8 C (98.2 F) | Ht 1.6 m (5' 3") | Wt 147.8 kg (325 l b 12.8 oz) | SpO2 97% | BMI 57.71 kg/m | BSA 2.56 m GENERAL: Well nourished, well developed and in no apparent distress, alert and active. HEENT: Grossly within normal limits. NECK: Supple, full range of motion. SKIN: No visible rashes. CHEST: Respirations even and unlabored. CARDIAC: Extremities warm and well perfused. ABDOMEN: Soft, nontender, nondistended, no mass, no hepatosplenomegaly. GROINS/: Deferred. EXTREMITIES: No edema, normal range of motion. NEUROLOGIC: Moves all extremities spontaneously. No apparent neurologic deficits. Cranial nerves 2-12 grossly intact. Gait symmetric and age appropriate. ASSESSMENT:: A(n) 40 y.o. female who meets and or exceeds NIH criteria for morbid obesity a nd comorbidities related to obesity including T2DM, GERD, and HTN, which may be improved wit h bariatric surgery. PLAN: 1. Plan for Franklin-en-Y gastric bypass with possible conversion to sleeve if adhesions preven t necessary access for anastomosis. 2. Consent obtained. 3. Pre-operative liver shrinking diet, partial meal replacement X 1-2 weeks, instructions p rovided. 4. Obtain EGD and echo results. DISCUSSION: A full PARQ session was held. We had a lengthy discussion regarding laparoscopi c gastric bypass verses sleeve gastrectomy. The risks of both procedures were discussed and include but are not limited to , myocardial infarction, stroke, bleeding, infection, an astomotic leak, anastomotic stricture, gastric conduit torsion, gastric conduit stenosis, de velopment or worsening of gastroesophageal reflux disease, DVT/PE, injury to bowel or other structures upon entering the abdomen, conversion to an open procedure, internal hernia, inci sional hernia especially if converted to an open procedure, bowel obstruction, chronic nause a, and chronic nutritional/vitamin deficiencies despite supplementation. In addition, the ri sk of poor or no weight loss was discussed. The patient s expected weight loss of approxim ately 50-60% of excess body weight for sleeve gastrectomy and 50-70% for gastric bypass was calculated for this patient s height and current weight, along with the fact that there is a wide range of weight loss results after bariatric surgery. Rare patients do not lose much weight at all after bariatric surgery, and this variability is thought to be due to genetic differences among patients that are not yet fully understood. I quoted an approximate overa ll 7-8% risk of all carol-operative complications in the carol-operative period, a 1-5% risk o f serious carol-operative complications, a 4-5% rate of reoperation over the correction (i.e. years), as well as other late complications that may or may not require operation or other i ntervention. I stressed that all complication rates and outcomes were estimates only. The ryan tinoco appeared to understand, was given an opportunity to ask questions, and agrees to proce ed. We discussed that sleeve gastrectomy does not treat GERD and can, in fact,worsen heartburn/ GERD. We discussed at length that some patients will experience worsening GERD symptoms and rarely severe, unrelenting symptoms requiring additional surgery. We discussed increased fertility after wt loss surgery and need for control. We discu ssed that before 18 months after surgery is at risk for defects and can sign ificantly interfere with weight loss trajectory. We discussed possible complications, and if any occur, they may need longer hospitalization and additional procedures. We discussed the specific complications as outlined above, specifically addressing the fact that leak rates may be higher for sleeve gastrectomy than gastric bypass, and may approach 5%. We reviewed the [facility] consent form. We discussed that we did not cover all possible risks and outcomes, but that I have provided the patient with a summary of the most common and im portant risks. We discussed the possibility of blood transfusion or liver biopsy with attend ant risks, the need for sedation and anesthesia with attendant risks that would be reviewed in detail with the anesthesiologists, the possibility that observers may be present and phot ographs may be taken in the operating room for teaching purposes, and that all of observers and photographs will be compliant with HIPPA. We discussed the fact that fellows and residen ts would be involved in intra-operative and post-operative care but that I will be the prima ry surgeon, present for the entire procedure, and manage and supervise all care delivered. Tong baron discussed the fact that if we encounter anything unexpected in the operating room (for exa mple cirrhosis or tumors) that I would adjust the operative plan accordingly based on my bes t judgment. The patient appeared to understand, was given an opportunity to ask questions, a nd agrees to proceed. I spent 60 minutes with the patient and >50% of this time was spent counseling the patient about surgery and surgical risks/expectations. Eber Cho MD Electronically signed on 04/28/2020 at 4:40 PM Eber Cho MD. documented in this encounter Plan of Treatment [...] + | Diagnosis | + + | Severe obesity (BMI >= 40) ([facility]) - Primary Morbid obesity | + + | DM type 2 without retinopathy ([facility]) Type II or unspecified type diabetes mellitus | | without mention of complication, not stated as uncontrolled | + + | Gastroesophageal reflux disease without esophagitis Esophageal reflux | + + | Fabry disease (HCC) Lipidoses | + + | Benign essential HTN Essential hypertension, benign | + + documented in this encounter
--- OUTSIDE RECORDS SUMMARY | ~2020-06-09 | XMS | Encounter Summary ---
Demographics + + + | Address | [address] | | | [place] [address] | + + + | Home Phone [...] Providers + +------+ + | Care Supervisor Housecleaner Name | Role | Phone | + +------+ + | Fausto Sinclair | PCP | | + +------+ + Reason for Visit + +--------+ + | Reason | Onset | Comments | | | Date | | + +--------+ + | Prior Authorization | 01/11/ | Approved for Jennifer until 06/14/2014 | | Request | 2013 | | + +--------+ + Encounter Details +--------+ + + + + | Date | Type | Department | Care Team | Description | +--------+ + + + + | Telephone | [facility] | Shaina Barrett | Prior Authorization | | 2013 | | Floor [address] | Request (Approved | | | | St Mailcode: [facility] | | for Fabrazyme until | | | | [place], [place] | | 06/14/2014) | | | | [phone] | | | | | | [phone] | | | +--------+ + + + [...] Telephone Encounter - Shaina Barrett FNP - 01/11/2014 1:42 PM PDTReceived TC message that Fabrazyme infusions have been approved until 06/14/2014. #[id number] Rupa at [employer] left message . She stated that [facility] would only approve unt il 06/14/2014 as would then be using ICD 10 codes. Just announced that ICD 10 codes are bein g delayed at least a year as passed in Congress earlier today. Will forward this message to PCP office. I will do PA again for patient in early May. Patient notified of this approval. NICHOLE Sutton, MPH, SANDBLASTING SUPERVISOR- Nurse Practitioner, [facility] documented in th [...]
--- OUTSIDE RECORDS SUMMARY | ~2020-06-09 | XMS | Encounter Summary ---
Demographics + + + | Address | [address] | | | [place] [address] | + + + | Home Phone [...] Providers + +------+ + | Care Nuclear Equipment Research Engineer Name | Role | Phone | [...] | | 2015 | | Department | [facility] | | | | | | Internal Medicin | | | | | | [address] [facility] [facility] | | | | | | [place] [address] | | | | | | [phone] | | | | | | | [...]
--- OUTSIDE RECORDS SUMMARY | ~2020-06-09 | XMS | Encounter Summary ---
Demographics + + + | Address | [address] | | | [place] [address] | + + + | Home Phone [...] Team Providers + +------+ + | Care Data Reporting Analyst Name | Role | Phone | [...] | | 2014 | | Department | [facility] | | | | | | Internal Medicin | | | | | | [address] [facility] | | | | | | [place] [address] | | | | | | [phone] | | | | | | | [...]
--- OUTSIDE RECORDS SUMMARY | ~2020-06-09 | XMS | Encounter Summary ---
Demographics + + + | Address | [address] | | | [place] [address] | + + + | Home Phone [...] Providers + +------+ + | Care Educational Technology Specialist Name | Role | Phone | [...] | | | | | | | [place], [place] | | | | | | | [address] | | | | | | | Phone: | | | | | | | [phone] | | | | | | | Fax: | | | | | | | [phone] | +--------+--------+ + + + + Encounter Details +--------+---------+ + + + | Date | Type | Department | Care Team | Description | +--------+---------+ + + + | 04/24/ | Office | [facility] 7th | Michell Muhammad, | Fabry disease (HCC) | | 2009 | Visit | Floor [address] | MD | (Primary Dx) | | | | St Mailcode: [facility] | | | | | | [facility] [place], [place] | | | | | | [address] | | | | | | [phone] | | | +--------+---------+ + + + [...] + documented in this encounter Progress Notes Feal Laurie - 04/25/2010 3:09 PM Jeanine is seen today for routine follow-up regarding her known diagnosis of Fabry disease. She also brought her 2 month old son to this appoint ment, he was diagnosed with Fabry disease prenatally, we have documentation showing he has t he familiall Fabry mutation. We were not able to see him today, as there was not an insuran ce referral/approval. She comes today primarily to discuss [...] put on Lovenox 80 mg daily for th e remainder of her and she continues to [...] Jarvis's increased symptoms and restart ing medication. care home follow up will probably be ok annually, considering she [place] drive away in [facility]. 3. Follow-up for her other problems, like [...] Professor, Pediatrics and Molecular and Medical Genetics [facility], [place] [address] Email: [email or web address] documented in this en counter Miscellaneous Notes Scan - Unknown - 04/24/2010 12:00 AM PDT documented in this encounter [...]
--- OUTSIDE RECORDS SUMMARY | ~2020-06-09 | XMS | Encounter Summary ---
Demographics + + + | Address | [address] | | | [place] [address] | + + + | Home Phone [...] Providers + +------+ + | Care Television Presenter Name | Role | Phone | + +------+ + | Gavinolizandro Estiven | PCP | | + +------+ + Encounter Details +--------+ + + + + | Date | Type | Department | Care Team | Description | +--------+ + + + + | 01/01/ | Abstract | Digestive Health | Clinic, Surgery | | | 2016 | | [place] [address] [address] | | | | | | [facility] | | | | | | for Health and | | | | | | Healing, Building [address] | | | | | | [place], [place] | | | | | | [address] | | | | | | [phone] | | | +--------+ + + + [...]
--- OUTSIDE RECORDS SUMMARY | ~2020-06-09 | XMS | Encounter Summary ---
Demographics + + + | Address | [address] | | | [place] [address] | + + + | Home Phone [...] Team Providers + +------+ + | Care Actimize Architect Name | Role | Phone | + +------+ + | Lexx Estiven | PCP | | + +------+ + Reason for Visit + +--------+ + | Reason | Onset | Comments | | | Date | | + +--------+ + | Prior Authorization | 10/09/ | [place] kendrick Axelamairani for Fabrazyme infusions received | | Request | 2017 | | + +--------+ + Encounter Details +--------+ + + + + | Date | Type | Department | Care Team | Description | +--------+ + + + + | 10/09/ | Telephone | [facility] at [facility] 7th | Shaina Barrett | Prior Authorization | | 2017 | | Floor [address] | Request ([place] for | | | | St Mailcode: [facility] | | [facility] for | | | | [place], [place] | | Fabrazyme infusions | | | | [address] | | received) | | | | [phone] | | | +--------+ + + + [...] Telephone Encounter - Shaina Barrett FNP - 03/19/2017 12:52 PM PDTPrior authorization approved for Fabrazyme home infusions via [facility] PA Number: [id number] From 11/13/2016 to 08/19/2017. See scanned documents under media tab for details. NICHOLE Sutton, MPH, BRYCE- Nurse Practitioner, Metabolic Clinic elephone Shaina Brandt FNP - 10/09/2016 4:28 PM PSTPrior authorization approved for Michael razyme 140 mg every 2 weeks from [employer] through [employer]. PA Number: [id number] From 09/16/2016 to 08/19/2017. See scanned documents under media tab for details. NICHOLE Sutton, MPH, BRYCE- Nurse Practitioner, Metabolic Clinic documented in th [...]
--- OUTSIDE RECORDS SUMMARY | ~2020-06-09 | XMS | Encounter Summary ---
Demographics + + + | Address | [address] | | | [place] [address] | + + + | Home Phone [...] + +------+ + | Care Parking Lot Chauffeur Name | Role | Phone | + +------+ + | Estiven Hallman DO | PCP | | + +------+ + Encounter Details +--------+ + + + + | Date | Type | Department | Care Team | Description | +--------+ + + + + | 09/17/ | Abstract | [facility] | Other, Faculty | | | 2017 | | Department | [phone] | | +--------+ + + + + [...]
--- OUTSIDE RECORDS SUMMARY | ~2020-06-09 | XMS | Encounter Summary ---
Demographics + + + | Address | [address] | | | [place] [address] | + + + | Home Phone [...] Team Providers + +------+ + | Care Drainage Engineer Name | Role | Phone | [...] as of this encounter Progress Notes Interface, Auditor Supervisor In - 04/14/2005 12:36 AM PDT [id number] 10/15/2004 10/15/2004 [id number] IV[facility] Clinic Date: 10/15/2004 Clinic Name Metabolic Services Discipline Pediatrics We had the pleasure of seeing Jarvis Miguel with her boyfriend in the Metabolic Clinic at [facility] in [facility] on October 15, 2004. As you well [...] disturbances. Jarvis s followed closely by her procurement technician, now every two weeks because of her [...] Dr. Mckeon with the contact information for [facility] in [place] where the sample for testing would have to be sent. I suggested to him that he would need to contact [facility] well in advance to pre-arrange this testing. 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 We would like to see her back two months after she delivers her baby, probably the first week in June 2005. Thank you for allowing us to participate in Jarvis's care. Estefani Taylor M.D. Fawad Muhammad M.D. Pediatric Advertising Dispatch Clerks SupervisorClient Services Vice President Pediatric, Molecular and Medical Genetics Head Division of Metabolism RDS/x29 A [phone] cc: Dr. Mckeon Electronically signed by Fawad [...]
--- OUTSIDE RECORDS SUMMARY | ~2020-06-09 | XMS | Encounter Summary ---
Demographics + + + | Address | [address] | | | [place] [address] | + + + | Home Phone [...] Phone | + + +---------+ + | Jonh Miguel | ECON | Unknown | | + + +---------+ + Care Team Providers + +------+ + | Care Area Director Of Home Health Sales Name | Role | Phone | + +------+ + | Mikki Barajas MD | PCP | | + +------+ + Encounter Details +--------+ + + + + | Date | Type | Department | Care Team | Description | +--------+ + + + + | 07/06/ | Hospital | Radiology at [facility] | Deidre Nguyen MD | | | 2019 | Encounter | [address] | [address] | | | | | [place] | Naty Isaacs [place], | | | | | [facility], | [place] [address] | | | | | [address] [place] [address] | [phone] | | | | | [place], [place] | | | | | | [address] | | | | | | [phone] | | | +--------+ + + + [...] | + +--------+ + + + | X-RAY CHEST 1 VIEW | Routin | 07/06/2019 | Port-A-Cath in | Results for this | | | e | 12:00 PM | place | procedure are in the | | | | PDT | | results section. | + +--------+ + + + documented in this encounter Results X-RAY CHEST 1 VIEW [...] + | Diagnosis | + + | Port-A-Cath in place Other postprocedural status | + + documented in this encounter"
--- OUTSIDE RECORDS SUMMARY | ~2020-06-09 | XMS | Encounter Summary ---
Demographics + + + | Address | [address] | | | [place] [address] | + + + | Home Phone [...] Team Providers + +------+ + | Care Sub Assembly Team Worker Name | Role | Phone | [...] | heterozygous female | | | | [facility] | | ([facility]) | | | | [address] | | | | | | [place] | | | | | | [facility] | | | | | | 7th Floor [place], | | | | | | [place] [address] | | | | | | [phone] | | | +--------+------+ + + + [...] documented as of this encounter Miscellaneous Notes Addendum Note - Geri Jiménez - 07/06/2019 12:00 PM PDT Addended by: GERI JIMÉNEZ on: 02:24 PM Modules accepted: Orders documented in this encou er Plan of Treatment [...] the | | | | PDT | ([facility]) | results section. | + +--------+ + + + | PROTEIN, URINE | Routin | 07/06/2019 | Fabry disease in | Results for this | | | e | 11:44 AM | heterozygous female | procedure are in the | | | | PDT | ([facility]) | results section. | + +--------+ + + + | CREATININE, URINE | Routin | 07/06/2019 | Fabry disease in | Results for this | | | e | 11:44 AM | heterozygous female | procedure are in the | | | | PDT | ([facility]) | results section. | + +--------+ + + + | RAINBOW HOLD - LAB | Routin | 07/06/2019 | Fabry disease in | Results for this | | USE ONLY | e | 11:42 AM | heterozygous female | procedure are in the | | | | PDT | ([facility]) | results section. | + +--------+ + + + | RAINBOW HOLD TUBE - | Routin | 07/06/2019 | Fabry disease in | | | GREEN TOP | e | 11:42 AM | heterozygous female | | | | | PDT | ([facility]) | | + +--------+ + + + | LAB OTHER | Routin | 07/06/2019 | Fabry disease in | Results for this | | | e | 11:42 AM | heterozygous female | procedure are in the | | | | PDT | ([facility]) | results section. | + +--------+ + + + | LAB OTHER | Routin | 07/06/2019 | Fabry disease in | Results for this | | | e | 11:42 AM | heterozygous female | procedure are in the | | | | PDT | ([facility]) | results section. | + +--------+ + [...] | + + + + + | [facility] | [address] | [place] [address] | | | [place]KS | PARK [...] [facility] | [address] | [place] [address] | | | SERVICES, CORE | PARK [...] | + + + + + | [facility] | [address] | [place] [address] | | | SERVICES, CORE | PARK [...] [facility] | [address] | [place] [address] | | | SERVICES, CORE | PARK [...] | | LAB | | | | [place] [address] | | | | + + + [...] | + + + + + | [facility] | [address] | [place] [address] | | | SERVICES, CORE | [address]AM[address] [...] | REFERENCE | | | | [place] Isa[place], | | LAB | | | | [place] [address] | | | | + + + [...] [facility] | [address] | [place] [address] | | | SERVICES, CORE | JAMIA [...]
--- OUTSIDE RECORDS SUMMARY | ~2020-06-09 | XMS | Encounter Summary ---
Demographics + + + | Address | [address] | | | [place] [address] | + + + | Home Phone [...] Team Providers + +------+ + | Care Thermostat Maker Name | Role | Phone | + +------+ + | Fausto Sinclair | PCP | | + +------+ + Reason for Visit + +--------+ + | Reason | Onset | Comments | | | Date | | + +--------+ + | Medication | 04/15/ | Needs updated orders | | management | 2012 | | + +--------+ + Encounter Details +--------+ + + + + | Date | Type | Department | Care Team | Description | +--------+ + + + + | 04/15/ | Telephone | [facility] at [facility] 7th | Deana Jimenez MD | Medication | | 2012 | | Floor [address] | [address] | management (Needs | | | | St Mailcode: [facility] | [address] [place], | updated orders ) | | | | [facility] [place] | [place] [address] | | | | | [address] | [phone] | | | | | [phone] | | | +--------+ + + + [...] Notes Telephone Encounter - Xenia Herzog - 04/15/2013 8:[address] Jimenez. I fransico led her back. We see a draft in our system from December but usually the pcp does the orders, we just help them with a template. She said yes, they called the doc and she is 'co-signing' them.. Apparently they have our stickers info on it, but the local doc co-signs...Nava gomez signed by Xenia Herzog at 04/15/2013 8:39 AM PDTdocumented in this encounter Plan of [...]
--- OUTSIDE RECORDS SUMMARY | ~2020-06-09 | XMS | Encounter Summary ---
Demographics + + + | Address | [address] | | | [place] [address] | + + + | Home Phone [...] Author + + + | Author | [facility] | + + + | Organization | [facility] | + + + | Address | Unknown | + + + | Phone | Unavailable | + + + Support + + +---------+ + | Name | Relationship | Address | Phone | + + +---------+ + | John Miguel | ECON | Unknown | | + + +---------+ + Care Team Providers + +------+ + | Care Steam Fitter Supervisor Maintenance Name | Role | Phone | + +------+ + PCP | Unavailable | + +------+ + Encounter Details +--------+ + + + + | Date | Type | Department | Care Team | Description | +--------+ + + + + | 04/30/ | Results | [facility] at [facility] 7th | Fawad Muhammad, | | | 2003 | Only | Floor [address] | | | | | St Mailcode: [facility] | | | | | | [facility] [place], [place] | | | | | | [address] | | | | | | [phone] | | | +--------+ + + + [...] | | | SERUM | performed by [facility] | | | | | | [facility] | | | | | | Laboratories. | | | | + + + + + + + + | Specimen | + + | | + + + + + + + | Performing | Address | City/State/Zipcode | Phone Number | | Organization | | | | + + + + + | [facility] | [address] | [place] [address] | | | LABORATORY | | | [...] | | | | | performed by [facility] | uIU/ml | | | | | [facility] | | | | | | Laboratories. | | | | + + + + + + + + | Specimen | + + | | + + + + + + + | Performing | Address | City/State/Zipcode | Phone Number | | Organization | | | | + + + + + | [facility] | [address] | [place] [address] | | | LABORATORY | | | [...] + + + + + | [facility] DEPARTMENT [facility] | [address] | [place] [address] | | | PATHOLOGY | [address] | | | + + + + + | [facility] DEPARTMENT [facility] | [address] | [place] [address] | | | PATHOLOGY | [address] [...] | + + + + + | [facility] | [address] [facility] | [place] [address] | | | PATHOLOGY | [address] | | | + + + + + | [facility] | [address] [facility] [facility] | [place] [address] | | | PATHOLOGY | [address] [...] + + + + + | [facility] DEPARTMENT [facility] | [facility] | [place] [address] | | | PATHOLOGY | [address] | | | + + + + + | [place] DEPARTMENT OF | [address] | [place] [address] | | | PATHOLOGY | [address] [...] + + + + + | [facility] DEPARTMENT OF | [address] | [place] [address] | | | PATHOLOGY | [address] | | | + + + + + | [facility] DEPARTMENT OF | [address] | [place] [address] | | | PATHOLOGY | [address] [...] + + + + + | [facility] DEPARTMENT OF | [address] | [place] [address] | | | PATHOLOGY | [address] | | | + + + + + | [facility] DEPARTMENT OF | [address] | [place] [address] | | | PATHOLOGY | [address] [...] UG/G | | | | | | ACCOUNTANT SUPERVISOR | | | | | + + [...] [facility] | [address] | [place], [place] | | | [facility] | | [address] | | + + + + + documented in this encounter Visit Diagnoses Not on filedocumented in this encounter"
--- OUTSIDE RECORDS SUMMARY | ~2020-06-09 | XMS | Encounter Summary ---
Demographics + + + | Address | [address] | | | [place] [address] | + + + | Home Phone [...] Providers + +------+ + | Care Case Coordinator Name | Role | Phone | [...] | 01/23/ | Documentati | [facility] at [facility] 7th | Shaina Barrett | Medication | | 2010 | on | Floor [address] | management | | | | St Mailcode: [facility] | | (Fabrazyme) | | | | [place], [place] | | | | | | [address] | | | | | | [phone] | | | +--------+ + + + [...] Telephone Encounter - Shaina Barrett FNP - 01/23/2011 2:45 PM PDTTC to [employer]--esa Yap as new POC for [employer] at [facility] [id number]. He states that [facility] is doing second round of PA as Dr. Rain has submitted the paperwork l ast January 17 and awaiting approval. TC to Dr. Rain's office and spoke with her. She is just awaiting the PA from [facility]. Patient will be doing infusions at [facility] and she has the template for orders and thinks that she has all the information needed to docume nt the process. I did let her know that we saw Jarvis yesterday and that she will be receiving updated infor mation via FAX shortly through the [employer] system. I shared my contact information with Dr. Rain should the insurance company require more information or if she has questions when writing the infusion orders. documented in this encounter Plan of Treatment [...]
--- OUTSIDE RECORDS SUMMARY | ~2020-06-09 | XMS | Encounter Summary ---
Demographics + + + | Address | [address] | | | [place] [address] | + + + | Home Phone [...] Team Providers + +------+ + | Care Speech Correction Assistant Name | Role | Phone | [...] | | | | | | | [place], [place] | | | | | | | [address] | | | | | | | Phone: | | | | | | | [phone] | | | | | | | Fax: | | | | | | | [phone] | +--------+--------+ + + + + Encounter Details +--------+---------+ + + + | Date | Type | Department | Care Team | Description | +--------+---------+ + + + | 07/06/ | Office | [facility] at [facility] | Deana Jimenez MD | Fabry disease (HCC) | | 2012 | Visit | Floor [address] | [address] | (Primary Dx) | | | | St Mailcode: [facility] | Naty Isaacs [place], | | | | | [facility] [place], [place] | [place] [address] | | | | | [address] | [phone] | | | | | [phone] | | | +--------+---------+ + + + [...] disease who returns to Metabolic Clinic for caro center follow up. She is currently receiving Fabrazyme [...] metabolic clinic for followup. Deana Jimenez MD Radio Frequency Design Engineer of Molecular and Medical Genetics documented in this enco unter Procedure Notes Other Faculty - 09/02/2013 10:44 AM PSTAssociated Order(s): ORDERS OTHERElectronically sig corinne by Faculty Other at 09/02/2013 10:44 AM PSTdocumented in this encounter Miscellaneous Notes Scan - Luzmaria Faculty - 09/02/2013 7:04 AM PSTElectronically signed by Faculty Other at 7:04 AM PSTdocumented in this encounter Plan of [...]
--- OUTSIDE RECORDS SUMMARY | ~2020-06-09 | XMS | Encounter Summary ---
Demographics + + + | Address | [address] | | | [place] [address] | + + + | Home Phone [...] Providers + +------+ + | Care Supervisor Long Goods Name | Role | Phone | + +------+ + | Estiven Hallman DO | PCP | | + +------+ + Encounter Details +--------+ + + + + | Date | Type | Department | Care Team | Description | +--------+ + + + + | 06/12/ | Battery Charger Tester | [facility] at [facility] 7th | Marcellus Rodriguez MD | Fabry disease (HCC) | | 2017 | | Floor [address] | [address] | (Primary Dx) | | | | St Mailcode: [facility] | [address] | | | | | [facility] [place], [place] | [place], [place] | | | | | [address] | [address] | | | | | [phone] | [phone] | | | | | | | [...]
--- OUTSIDE RECORDS SUMMARY | ~2020-06-09 | XMS | Encounter Summary ---
Demographics + + + | Address | [address] | | | [place] [address] | + + + | Home Phone [...] Team Providers + +------+ + | Care Pressure Washer Name | Role | Phone | + +------+ + | Lexx Estiven | PCP | | + +------+ + Reason for Visit + +--------+ + | Reason | Onset | Comments | | | Date | | + +--------+ + | Evaluation AND/OR | 04/07/ | | | management - new | 2017 | | | patient | | | + +--------+ + Consultation (Routine) +--------+--------+ + + + + | Status | Reason | Specialty | Diagnoses / | Referred By | Referred To | | | | | Procedures | Contact | Contact | +--------+--------+ + + + + | Closed | | Pain | Diagnoses | T[place]gner, | Counter Intelligence Psych | | | | Management | Morbid | Kathleen F, ACNP | [address] [address] | | | | | obesity, | [address] | | | | | unspecified | [address] | Center for | | | | | obesity type | [place], [place] | Health and | | | | | ([facility]) | [address] | Healing, | | | | | Procedures | Phone: | Building | | | | | CONSULT TO | [phone] | 1,15th Floor | | | | | PAIN | Fax: | [place], [place] | | | | | MANAGEMENT | [phone] | [address] | | | | | SD | | Phone: | | | | | PSYCHIATRIC | | [phone] | | | | | DIAGNOSTIC | | Fax: | | | | | EVAL, NO MED | | [phone] | | | | | [facility] [place] | | | | | | | PSYCH TSTNG | | | | | | | PSYCH/PHYS | | | +--------+--------+ + + + + Encounter Details +--------+---------+ + + + | Date | Type | Department | Care Team | Description | +--------+---------+ + + + | 04/04/ | Office | [facility] | Doug Chapa, | Morbid obesity with | | 2017 | Visit | [address] | PhD [address] | BMI of 60.0-69.9, | | | | Center for Health | [place], [place] | adult ([facility]) (Primary | | | | and Healing, | [address] | Dx); Major | | | | Building | [phone] | depressive disorder, | | | | Floor [place], [place] | | recurrent, mild | | | | [address] | | ([facility]); DM type 2 | | | | [phone] | | without retinopathy | | | | | | ([facility]); Generalized | | | | | | [...] Name: Jarvis Miguel : 1980 Medical Record: [id number] Age:37 y.o. Weight: 370 lbs BMI: 66 Proposed Surgery: sleeve gastrectomy. Identifying Information: Jarvis Miguel is a 37 y.o. female who lives with her mother and he r children in [place], [place]. She was referred for psychological evaluation prior to bariatr ic surgery. Informed consent and limits of confidentiality [...] has spoken with people who have had [facility], and has read the Bariatric Surgery [...] to improve her consistency with following the resources representative's recommendations, especially eating on schedule. 4. She should continue her current exercise routine and gradually increase the duration of her walks. 5. She is urged to participate in a Bariatric Surgery Support Group. Total time I spent with the patient was approximately 50 minutes with approximately 45 heriberto hima of testing interpreting and synthesizing results. Doug Chapa, PhD [facility] 15TH FLOOR [address] [facility] Mail Code: [address] [place] [address] documented in this en counter [...] Morbid obesity with BMI of 60.0-69.9, adult ([facility]) - Primary | + + | Major depressive disorder, recurrent, mild ([facility]) Major depressive disorder, recurrent | | episode, mild | + + | DM type 2 without retinopathy (HCC) Type II or unspecified type diabetes mellitus | | without mention of complication, not stated as uncontrolled | + + | Generalized anxiety disorder | + + documented in this encounter"
--- OUTSIDE RECORDS SUMMARY | ~2020-06-09 | XMS | Encounter Summary ---
Demographics + + + | Address | [address] | | | [place] [address] | + + + | Home Phone [...] Providers + +------+ + | Care Surgical Assistant Certified Name | Role | Phone | + +------+ + | Florian Martinez I | PCP | Unavailable | + +------+ + Encounter Details +--------+ + + + + | Date | Type | Department | Care Team | Description | +--------+ + + + + | 05/28/ | Documentati | [facility] 7th | Fawad Muhammad, | | | 2006 | on | Floor [address] | | | | | St Mailcode: [facility] | | | | | | [facility] [place], [place] | | | | | | [address] | | | | | | [phone] | | | +--------+ + + + [...] Telephone Encounter - Shy Rome Rn - 05/28/2007 3:27 PM PDT03/05/07 Call from [facility] staff on 02/24/07 to request information on fabrazyme and . Contacted Lexus du at [employer] who called pharmacovigilence to request information. Jarvis was not on fabrazyme during her last . The [employer] Registry was queried and one case study was availble . This case study was sent to us by Tara Reynaga at [employer] and Ms. Reynaga called Jarvis at Jarvis's request to give her this inf ormation. Jarvis requested that this case study #[id number] et all be sent to her O.B. physician. This was done and confirmed by Ms. Reynaga. Ms. Blackwood reports that there is an ongoing clinical t rial for subjects on fabrazyme who are or lactating. There are no other published r eports available at this time.. Animal studies have been done. They are now in the process o f obtaining anecdotal information. They will repor t any new findings. Lexus Martell is staying in contact with Jarvis at Jarvis's request. Shy Rhodes pg. # [id number] documented in this enc ounter Plan of [...]
--- OUTSIDE RECORDS SUMMARY | ~2020-06-09 | XMS | Encounter Summary ---
Demographics + + + | Address | [address] | | | [place] [address] | + + + | Home Phone [...] Team Providers + +------+ + | Care Oil Well Services Supervisor Name | Role | Phone | + +------+ + | Mikki Barajas MD | PCP | | + +------+ + Reason for Visit + +--------+ + | Reason | Onset | Comments | | | Date | | + +--------+ + | Returning Phone Call | 07/23/ | | | | 2019 | | + +--------+ + Encounter Details +--------+ + + + + | Date | Type | Department | Care Team | Description | +--------+ + + + + | 07/23/ | Telephone | [facility] | Alda Marie | Returning Phone Call | | 2019 | | [address] | W, PhD [address] | | | | | [facility] | [place], [place] | | | | | and [place], | [address] | | | | | | [phone] | | | | | Floor [place], [place] | | | | | | [address] | | | | | | [phone] | | | +--------+ + + + [...] this encounter Miscellaneous Notes Telephone Encounter - Kaya Soares - 07/23/2019 10:17 AM PSTPatient called to speak to Dr. Marie regarding Bariatric surgery clearance. Patient states her Tweekaboohart is not working and she is unable to access it, so she would like a call back to check in about clearing her for surgery. Please advise. P STdocumented in this encounter Plan of Treatment +--------+ [...]
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
--- OUTSIDE RECORDS SUMMARY | ~2020-06-09 | XMS | Encounter Summary ---
Demographics + + + | Address | [address] | | | [place] [address] | + + + | Home Phone [...] Team Providers + +------+ + | Care Software Support Technician Name | Role | Phone | [...] | | 2019 | on | at [facility] | B, WORKERS COMPENSATION PARALEGAL [address] | (New Infusion | | | | [address] | [facility] | Orders) | | | | Doerajithecher | [place], [place] | | | | | [facility] | [address] | | | | | [address] [place] [address], | [phone] | | | | | [place] [address] | | | | | | [phone] | | | +--------+ + + + [...] Miscellaneous Notes Telephone Encounter - Genny Hagan, WORKERS COMPENSATION PARALEGAL - 12/03/2018 3:[address] Hallman' s office and let them know that new infusion orders need to be signed and faxed to [facility]. I let the person who answered the phone that there are changes in dose, a nd to review the orders carefully. The changes can't be made unless Dr. Hallman signs the or ders and sends to [facility], and they should contact me with any questions. They provided me with fax number [phone]. I also sent a copy of the unsigned order to [facility] so they can review, and let them kn ow that Dr. Hallman should be faxing a signed copy very soon. I farhad their attention to the dose change. They should call me with any questions or concerns. documented in this encounter Plan of Treatment [...]
--- OUTSIDE RECORDS SUMMARY | ~2020-06-09 | XMS | Encounter Summary ---
Demographics + + + | Address | [address] | | | [place] [address] | + + + | Home Phone [...] Team Providers + +------+ + | Care Braid Cutter Name | Role | Phone | + +------+ + | Estiven Hallman DO | PCP | | + +------+ + Encounter Details +--------+ + + + + | Date | Type | Department | Care Team | Description | +--------+ + + + + | 03/22/ | Abstract | [facility] | Estiven Hallman DO | | | 2014 | | Department | [facility] | | | | | | Internal Medicin | | | | | | [address] [facility] | | | | | | [place] [address] | | | | | | [phone] | | | | | | | [...]
--- OUTSIDE RECORDS SUMMARY | ~2020-06-09 | XMS | Encounter Summary ---
Demographics + + + | Address | [address] | | | [place] [address] | + + + | Home Phone [...] Team Providers + +------+ + | Care Seismograph Operator Helper Name | Role | Phone [...] [id number] | | | | | | [facility] | | | | | | [place], [place] | | | | | | [address] | | | | | | [phone] | | | +--------+ + + + [...]
--- OUTSIDE RECORDS SUMMARY | ~2020-06-09 | XMS | Encounter Summary ---
Demographics + + + | Address | [address] | | | [place] [address] | + + + | Home Phone [...] Team Providers + +------+ + | Care Tire Repair Mechanic Name | Role | Phone | [...] | | 2019 | on | at [facility] | B, PROSTHODONTIST/OWNER [address] [facility] | (co-signed orders | | | | [address] | [facility] | for fabrazyme sent | | | | Joseph[place] | [place], [place] | to Dr[facility] Andersen's | | | | [facility] | [address] | office for her | | | | 7th Floor [place], | [phone] | signature. I let | | | | [place] [address] | | staff know to expect | | | | [phone] | | them today.) | +--------+ + [...]
--- OUTSIDE RECORDS SUMMARY | ~2020-06-09 | XMS | Encounter Summary ---
Demographics + + + | Address | [address] | | | [place] [address] | + + + | Home Phone [...] Author + + + | Author | [facility] | | | and [place] | + + + | Organization | [facility] | | | and [place] | + + + | Address | Unknown | + + + | Phone | Unavailable | + + + Support + + + + + | Name | Relationship | Address | Phone | + + + + + | Jordyn Sharmaves | ECON | NONE | + | | | | [place] [address] | | + + + + + | Jordyn Sharmaves | ECON | NONE | + | | | | [place] [address] | | + + + + + Care Team Providers + +------+ + | Care Clam Bed Laborer Name | Role | Phone | + +------+ + | Estiven Hallman DO | PCP | | + +------+ + Encounter Details +--------+ + + + + | Date | Type | Department | Care Team | Description | +--------+ + + + + | 01/23/ | Hospital | [facility] | Wing Sage MD | Fabry's disease | | 2018 | Encounter | MED CTR CHEMO | [address] | (HCC) (Primary Dx) | | | | INFUSION [address] | [place], [place] | | | | | [place], | [address] | | | | | [place] [address] | | | | | | [phone] | | | +--------+ + + + [...] injection 500 Units 500 Units ( | 11:34 | Units | | | | mL), Intracatheter, PRN, Line | | AM PDT | | | | | Care, Starting 01/23/18 at | | | | | | | 1113 | | | | | | + +--------+ +-------+------+------+ +---+---+ | | | +---+---+ documented in this encounter"
--- OUTSIDE RECORDS SUMMARY | ~2020-06-09 | XMS | Encounter Summary ---
Demographics + + + | Address | [address] | | | [place] [address] | + + + | Home Phone [...] Providers + +------+ + | Care Supervisor Grips Name | Role | Phone | + [...] as of this encounter Progress Notes Interface, Mesh Worker In - 04/14/2005 8:10 AM PDTClinic Date: 04/30/2004 Clinic Name Metabolic Clinic [facility] Metabolics Jarvis is a 24-year-old female diagnosed [...] leave. She used to work in the [employer] for [employer]. She is from [place]. She does not drink alcohol, she does [...] grossly intact. Negative Romberg. Negative gait ataxia. Prnzyp-xl-myrx normal. 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
--- OUTSIDE RECORDS SUMMARY | ~2020-06-09 | XMS | Encounter Summary ---
Demographics + + + | Address | [address] | | | [place] [address] | + + + | Home Phone [...] Team Providers + +------+ + | Care French Binder Name | Role | Phone | + +------+ + | Lexx Estiven | PCP | | + +------+ + Encounter Details +--------+ + + + + | Date | Type | Department | Care Team | Description | +--------+ + + + + | 01/22/ | Abstract | Digestive Health | Clinic, Surgery | | | 2019 | | [place] [address] [address] | | | | | [address] [facility] | | | | | | for Health and | | | | | | Healing, [address] | | | | | | [place], [place] | | | | | | [address] | | | | | | [phone] | | | +--------+ + + + [...]
--- OUTSIDE RECORDS SUMMARY | ~2020-06-09 | XMS | Encounter Summary ---
Demographics + + + | Address | [address] | | | [place] [address] | + + + | Home Phone [...] Providers + +------+ + | Care Regional Trainer Name | Role | Phone | + [...] | 04/03/ | Documentati | [facility] 7[facility] | Marcellus Rodriguez MD | Other (Faxed | | 2016 | on | Floor [address] | [address] | Disability forms. | | | | Mailcode: [facility] | [address] | Confirmation rcv'd. | | | | [facility] [place], [place] | [place], [place] | Sent to [facility] ) | | | | [address] | [address] | | | | | [phone] | [phone] | | | | | | | [...]
--- OUTSIDE RECORDS SUMMARY | ~2020-06-09 | XMS | Encounter Summary ---
Demographics + + + | Address | [address] | | | [place] [address] | + + + | Home Phone [...] Team Providers + +------+ + | Care Dinkey Engine Firer Name | Role | Phone | [...]
--- OUTSIDE RECORDS SUMMARY | ~2020-06-09 | XMS | Encounter Summary ---
Demographics + + + | Address | [address] | | | [place] [address] | + + + | Home Phone [...] Author + + + | Author | [facility] | | | and [place] | + + + | Organization | [facility] | | | and [place] | + + + | Address | Unknown | + + + | Phone | Unavailable | + + + Support + + + + + | Name | Relationship | Address | Phone | + + + + + | Jordyn Sharmaves | ECON | NONE | + | | | | [place] [address] | | + + + + + | Jordyn Miguel | ECON | NONE | + | | | | [place] [address] | | + + + + + Care Team Providers + +------+ + | Care Brush Loader And Handle Attacher Name | Role | Phone | + +------+ + | Estiven Hallman DO | PCP | | + +------+ + Encounter Details +--------+ + + + + | Date | Type | Department | Care Team | Description | +--------+ + + + + | 01/23/ | Hospital | [facility] | Parth Mcelroy, | Encounter for care | | 2018 | Encounter | MED CTR XRAY [address] | MD Rigoberto Rodas | related to vascular | | | | [address] [place] | Melony [place] | access port; [place] | | | | [place] [address] | [address] | disease (HCC) | | | | [phone] | [phone] | | | | | | | | | | | | [address] | | +--------+ + + + [...]
--- OUTSIDE RECORDS SUMMARY | ~2020-06-09 | XMS | Encounter Summary ---
Demographics + + + | Address | [address] | | | [place] [address] | + + + | Home Phone [...] Team Providers + +------+ + | Care Stitcher Tape Controlled Machine Name | Role | Phone | + +------+ + PCP | Unavailable | + +------+ + Encounter Details +--------+ + + + + | Date | Type | Department | Care Team | Description | +--------+ + + + + | 06/25/ | [facility] | | Letter, Clinic [...] as of this encounter Progress Notes Interface, Irrigation Technician In - 06/27/2005 5:05 AM PDT [id number] 06/25/2005 06/25/2005 [id number] IVA ZHU [place] [address] [facility] [place] [address] or June 25, 2005 Dr. Andres [place] RE: JARVIS ENRIQUE MR #: [id number] Dear Dr. Andres: We saw your patient, Jarvis Enrique, in the Metabolic Clinic at [facility] on July 26, 2005. 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 I saw her together with Tawny Sanches M.D. We saw and examined Ms. Enrique together. Our findings are accurately documented in her note. We discussed the case together. Dr. Andres, thanks so much for allowing us to participate in the care of your patient, Jarvis Enrique. Please feel free to write, call, or email if you have questions or wish to discuss her care. ; fax: [phone]; email: [email or web address]. Sincerely, Fawad Muhammad M.D. [facility] e-mail:[email or web address] / [id number] / [id number] / [phone] / documented i n this encounter Plan of [...]
--- OUTSIDE RECORDS SUMMARY | ~2020-06-09 | XMS | Encounter Summary ---
Demographics + + + | Address | [address] | | | [place] [address] | + + + | Home Phone [...] Team Providers + +------+ + | Care Principal Bioinformatics Specialist Name | Role | Phone | + +------+ + | Estiven Hallman | PCP | | + +------+ + Reason for Visit + +--------+ + | Reason | Onset | Comments | | | Date | | + +--------+ + | Medication | 06/15/ | Fabrazyme increased | | management | 2013 | | + +--------+ + Encounter Details +--------+ + + + + | Date | Type | Department | Care Team | Description | +--------+ + + + + | 06/15/ | Telephone | [facility] 7[facility] | Shaina Barrett | Medication | | 2013 | | Floor [address] | management | | | | St Mailcode: [facility] | | (Fabrazyme | | | | [facility] [place], [place] | | increased) | | | | [address] | | | | | | [phone] | | | +--------+ + + + [...] Telephone Encounter - Shaina Barrett FNP - 06/15/2014 3:29 PM PDTFabrazyme approved by insurance for 140 mg for 26 doses. (See scanned documents for sample orders sent to Dr. Daniel maxwell earlier.) ALso sent message to Dr. Hallman office for lab orders. Will send kit to Jarvis to do at next infusion. Urine creatinine and protein to also to be completed. Does not need CBC and CMP this time a s just completed here, but should be done again in 6 months. Re-instructed that Jarvis does not need to be seen again until next year. She agreed. NICHOLE Sutton, MPH, ORGANIC EXTRACTIONS TECHNICIAN- Nurse Practitioner, Metabolic Clinic Electronically signed by BRYCE Palm at 1:11 PM PDTdocumented in this encounter Plan of [...]
--- OUTSIDE RECORDS SUMMARY | ~2020-06-09 | XMS | Encounter Summary ---
Demographics + + + | Address | [address] | | | [place] [address] | + + + | Home Phone [...] Team Providers + +------+ + | Care Store Hand Name | Role | Phone | [...] | | Michael | [facility] | [address] [facility] | | | | | | Hospital | [facility] | | | | | | Internal | [address] [place], | | | | | | Medicin | [place] | | | | | | [address] | [address] | | | | | | Manolo Cartwright | Phone: | | | | | | [place], | [phone] | | | | | | [place] [address] | Fax: | | | | | | Phone: | [phone] | | | | | | [phone] | | | | | | | Fax: | | | | | | | [phone] | | +--------+--------+ + + + + Encounter Details +--------+---------+ + + + | Date | Type | Department | Care Team | Description | +--------+---------+ + + + | 09/17/ | Office | [facility] at [facility] 7th | Marcellus Rodriguez MD | Fabry disease in | | 2017 | Visit | Floor [address] | [address] [facility] | heterozygous female | | | | St Mailcode: [facility] | [address] | ([facility]) (Primary Dx) | | | | [facility] [place], [place] | [place], [place] | | | | | [address] | [address] | | | | | [phone] | [phone] | | | | | | | [...] RTC in one year. 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
--- OUTSIDE RECORDS SUMMARY | ~2020-06-09 | XMS | Encounter Summary ---
[...] Team Providers + +------+ + | Care Sheet Taker Name | Role | Phone | + +------+ + | Lexx Estiven | PCP | | + +------+ + Reason for Visit + +--------+ + | Reason | Onset | Comments | | | Date | | + +--------+ + | Prior Authorization | 09/27/ | Fabrazyme infusion | | Request | 2015 | | + +--------+ + | Prior Authorization | 09/27/ | Approved 09-15-15----01-14-16 | | Request | 2015 | | + +--------+ + Encounter Details +--------+ + + + + | Date | Type | Department | Care Team | Description | +--------+ + + + + | 09/27/ | Telephone | [facility] 7th | Shaina Barrett | Prior Authorization | | 2016 | | Floor [address] | Request (Fabrazyme | | | | Mailcode: [facility] | | infusion); Prior | | | | [facility] [place], [place] | | Authorization | | | | [id number] | | Request (Approved | | | | [phone] | | 09-15-15----01-14-16) | +--------+ + + [...] Telephone Encounter - Shaina Barrett FNP - 10/11/2015 8:56 AM PSTPrior authorization approved from 09-15-15 to 01-14-16 Authorization number [id number]. Telephonic notification, so no paper documentation at this time to scan. NICHOLE Sutton, MPH, BRYCE-RANJANA Nurse Practitioner, Metabolic Clinic TC made to patient (left message) and to infusion center to let them know of authorization approval. elephone Encoun Shaina Almaraz FNP - 09/27/2015 7:41 AM PSTPrior authorization sent via FAX to [email or web address] for Fabrazyme infusions. See scanned document under media tab. NICHOLE Sutton, MPH, BRYCE-RANJANA Nurse Practitioner, Metabolic Clinic documented in th [...]
--- OUTSIDE RECORDS SUMMARY | ~2020-06-09 | XMS | Encounter Summary ---
Demographics + + + | Address | [address] | | | [place] [address] | + + + | Home Phone [...] Team Providers + +------+ + | Care Pipe Coverer And Insulator Name | Role | Phone | + +------+ + | Mikki Barajas MD | PCP | | + +------+ + Reason for Visit + +--------+ + | Reason | Onset | Comments | | | Date | | + +--------+ + | Lab Draw | 07/07/ | Incorrect sample, cancelling order | | | 2018 | | + +--------+ + Encounter Details +--------+ + + + + | Date | Type | Department | Care Team | Description | +--------+ + + + + | 07/07/ | Telephone | Metabolic Genetics | Deidre Nguyen MD | Lab Draw (Incorrect | | 2019 | | at [facility] | [address] [facility] | sample, cancelling | | | | [address] | [address] [place], | order) | | | | [place] | [place] [address] | | | | | [facility] | [phone] | | | | | [address] [place] [address], | | | | | | [place] [address] | | | | | | [phone] | | | +--------+ + + + [...] this encounter Miscellaneous Notes Telephone Encounter - Olman Romero - 07/07/2019 10:33 AM PDTReceived a call from Carleen at [facility] core lab to report they received a "Genzyme kit" and sample for this patient today h owever the sample is incorrect. It should have been a "red top" tube but instead they recei hunter "sodium heparin". She reports they will have to cancel the Fabrizyme antibody test for this patient. They can keep the kit on hand in case and send when the correct sample is rec eived. Reported to Xenia Hrezog who was in Metabolic clinic with Dr. Nguyen. documented in this encounter Plan of Treatment [...]
--- OUTSIDE RECORDS SUMMARY | ~2020-06-09 | XMS | Encounter Summary ---
Demographics + + + | Address | [address] | | | [place] [address] | + + + | Home Phone [...] Team Providers + +------+ + | Care Hull Line Crew Member Name | Role | Phone | + +------+ + | Mikki Barajas MD | PCP | | + +------+ + Encounter Details +--------+ + + + + | Date | Type | Department | Care Team | Description | +--------+ + + + + | 05/15/ | Anesthesia | Preoperative | O Nicky Oconnor | | | 2020 | Event | Medicine Clinic at | MD Shabbir [address] | | | | | [facility] | [address] | | | | | [address] | [facility] [place] | | | | | [place] for [facility] | [address] | | | | | and Healing, | [phone] | | | | | Building [address] | | | | | | [place], [place] | | | | | | [address] | | | | | | [phone] | | | +--------+ + + + + Anesthesia Record + + + + + | Procedure Name | Responsible | Anesthesia Start | Anesthesia Stop Time | | | Anesthesiologist | Time | | + + + + + | PREANESTHETIC | | | | | EVALUATION | | | | + + + + + + + | No events on file. | + + +------+ | Meds | +------+ + + + No medications | on file. | + + + + + | No agents on file. | + + + + | No blood administrations on file. | + + + + | No LDAs on file. | + + documented in this encounter Social History + +-------+ +--------+------+ | Tobacco [...] documented as of this encounter Miscellaneous Notes PMC/ANE PreOp Note - O Nicky Oconnor MD - 05/15/2020 9:25 AM PDTROS: HPI: Prior Anesthetic Problems: Yes PONV Pulmonary: no shortness of breath no cough no wheezing no rhinorrhea no sputum no Recent Respi ratory Infection Pt. Has no asthma no COPD No dx of sleep apnea Cardiovascular: Functional Capacity: Moderate - palpitations and syncope negative for pulmonary HTN no PAD no chest pain no CHF hy pertension well controlled no valvular problems/murmurs -congenital heart disease no arrhy thmia no Cardiac assist devices no pacemaker/ICD GI/Hepatic: no GERD no liver disease Renal: no renal failure no electrolyte abnormalities Urology/Probate Clerk: No dysuria no Urologic Conditions Endo: (+) Fabry's disease Diabetes: type 2 well controlled insulin injections and oral hypoglyce mics no Endocrine Other Hx Corticosteroid Use: < 6 months Neuro/Psych: No Head Conditions No Spine Conditions Psych Disorder bipolar disorder and post-traumatic stress disorder pain Current pain score: Chronic pain related to scheduled surgery Chronic P ain Musculoskeletal: arthritis Type: osteoarthritis No Muscular Disorders no skeletal disorders Heme/Onc: Pt. has: no active bleeding no bleeding disorder No clotting disorders no malignancy Infectious Disease: MRSA (over a decade ago after csection) no VRE no clostridium difficile no HIV/AIDS Skin: no open wounds No active skin infections no skin conditions AutoImmune Disorders: No autoimmune disorders Physical Exam General: Appearance: Healthy, Age appropriate, No distress and Smiling LOC: Alert HEENT: Normocephalic/Atraumatic, Normal sclerae/conjunctivae and EOMI Airway: Mallampati: Unable to assess Mouth Opening: Unable to assess TM Distance:> 6 cm C-Spine ROM: Normal Neck Anatomy: Thick, obese Pulmonary: CTA(B), no w/r/r, good air movement, no increased work of breathing and speaking in full se ntences Respiratory: pulmonary exam normal Breath Sounds: breath sounds normal Cardiovascular: No m/r/g, no carotid bruit, no LE edema, JVP not seen elevated Rhythm: Regular Rate: Normal Abdomen: General: Normal Body Habitus: obesity Bowel Sounds: bowel sounds are normal Musculoskeletal: Range of Motion: Normal range of motion Neuro/Psych: Affect: Normal Cognitive Status: Normal Speech: Normal speech Strength: Normal Muscle Tone: Normal Movement: Normal Gait Station: Normal Skin: Color: skin color normal Texture: Normal Turgor: turgor normal Temperature: Warm Other Implanted Devices: Implanted devices: Other Implanted Devices R chest PORT documented in thi s encounter Plan of [...]
--- OUTSIDE RECORDS SUMMARY | ~2020-06-09 | XMS | Encounter Summary ---
Demographics + + + | Address | [address] | | | [place] [address] | + + + | Home Phone [...] Team Providers + +------+ + | Care Acid Cutter Name | Role | Phone | + +------+ + | Lexx Estiven | PCP | | + +------+ + Reason for Visit + +--------+ + | Reason | Onset | Comments | | | Date | | + +--------+ + | Prior Authorization | 01/22/ | Approved for ERT: [id number] until 08/15/16 | | Request | 2016 | | + +--------+ + Encounter Details +--------+ + + + + | Date | Type | Department | Care Team | Description | +--------+ + + + + | 01/22/ | Telephone | [facility] at [facility] 7th | Marcellus Rodriguez MD | Prior Authorization | | 2016 | | Floor [address] | [address] | Request (Approved | | | | St Mailcode: [facility] | [facility] | for ERT: [id number] | | | | [facility], [place] | [place], [place] | until 08/15/16 ) | | | | [address] | [address] | | | | | [phone] | [phone] | | | | | | | [...] Notes Telephone Encounter - Xenia Herzog - 01/23/2016 8:46 AM PDTPt called to inquire where we are at with her current PA. I told her I could not find one (or the paperwork for it) on Graciela degroot's desk. She knew Shaina out this week; I told her I would re-submit today. Faxed to [employer] today docum ented in this encounter Plan of Treatment +--------+ [...]
--- OUTSIDE RECORDS SUMMARY | ~2020-06-09 | XMS | Encounter Summary ---
Demographics + + + | Address | [address] | | | [place] [address] | + + + | Home Phone [...] Team Providers + +------+ + | Care Lithographic Proofer Apprentice Name | Role | Phone | + +------+ + | Lexx Estiven | PCP | | + +------+ + Encounter Details +--------+ + + + + | Date | Type | Department | Care Team | Description | +--------+ + + + + | 12/28/ | Documentati | [facility] at [facility] 7th | Deana Jimenez MD | | | 2013 | on | Floor [address] | [address] | | | | | St Mailcode: [facility] | Naty Isaacs [place], | | | | | [facility] [place], [place] | [place] [address] | | | | | [address] | [phone] | | | | | [phone] | | | +--------+ + + + [...]
--- OUTSIDE RECORDS SUMMARY | ~2020-06-09 | XMS | Encounter Summary ---
Demographics + + + | Address | [address] | | | [place] [address] | + + + | Home Phone [...] Providers + +------+ + | Care Wellness Nurse Rn Name | Role | Phone | + [...] as of this encounter Progress Notes Interface, Premium Card Cancellation Clerk In - 07/16/2006 2:32 AM PST [id number] 07/14/2006 07/14/2006 [id number] IVA [id number] [address] [place] [address] or July 14, 2006 Florian Martinez RE: JARVIS ENRIQUE MR #: [id number] Dear Dr. Martinez: We saw your patient, Jarvis Enrique, in the Metabolic [facility] at [facility] on July 14, 2006. I saw Jarvis [...] discuss her care. Sincerely, Fawad Muhammad M.D. Home Health Clinician of Pediatrics and Molecular Medical Genetics e-mail:[email or web address] / [id number] / [id number] / [phone] / [phone] documented i n this encounter Plan of [...]
--- OUTSIDE RECORDS SUMMARY | ~2020-06-09 | XMS | Encounter Summary ---
Demographics + + + | Address | [address] | | | [place] [address] | + + + | Home Phone [...] Providers + +------+ + | Care Technical Systems Architect Name | Role | Phone | [...] [place] | | | | | | [facility] | | | | | | [address] | | | | | | [place] | | | | | | [facility] | | | | | | 7th Floor [place], | | | | | | [place] [address] | | | | | | [phone] | | | +--------+------+ + + + [...] + + | [facility] DEPARTMENT | [address] | [place] [address] | | | PATHOLOGY | [address] [...] + + | [facility] | [address] [facility] [address] | [place] [address] | | | PATHOLOGY | [address] [...] | | | DEPARTMENT | | | [place] | | | OF | | | [...] DEPARTMENT OF | [address] | [place] [address] | | | PATHOLOGY | [address] [...] + + + + | [place] DEPARTMENT | [address] | [place] [address] | | | PATHOLOGY | [address] | | | + + + + + CREATININE, URINE (12/24/2011 3:20 PM PDT) + +--------+ + + + | Component | Value | Ref Range | Performed | Pathologist | | | | | At | Signature | + +--------+ + + + | CREATININE | 223.38 | mg/dL | [facility] | | | [...] DEPARTMENT OF | [address] | [place] [address] | | | PATHOLOGY | [address] [...] DEPARTMENT OF | [address] | [place] [address] | | | PATHOLOGY | [address] | | | + + + + + documented in this encounter Visit Diagnoses + + | Diagnosis | + + | Fabry disease (HCC) Lipidoses | + + documented in this encounter"
--- OUTSIDE RECORDS SUMMARY | ~2020-06-09 | XMS | Encounter Summary ---
Demographics + + + | Address | [address] | | | [place] [address] | + + + | Home Phone [...] Team Providers + +------+ + | Care Marketing Intelligence Manager Name | Role | Phone | [...] | 01/31/ | Documentati | [facility] at [facility] 7th | Fawad Muhammad, | Research data | | 2010 | on-ECX | Floor [address] MD | collection | | | | St Mailcode: [facility] | | | | | | [place], [place] | | | | | | [address] | | | | | | [phone] | | | +--------+ + + + [...] documented as of this encounter Progress Notes Geri Arredondo - 01/31/2011 12:48 PM PDTResearch Enrollment Note: [employer] Fabry Registry PI: Fawad Muhammad MD IRB Number: [id number] Initials: On January 22, 2011 JR was approached to be re-consented for the Fabry registry and s ub registry. This registry was discussed at length and informed consent document was review ed with including risk/benefit/cost/procedures/confidentiality/withdrawal Questions were answered by myself, Geri Arredondo and Dr. Muhammad was available to answer questions as well. was agreeable to her continued participation in this registry and also agree to participa derick in the sub registry. signed the general consent form and sub-registry por tion of the consent form as well as the HIPAA form for this registry. She was given copies o f these signed forms. meets all protocol inclusion and exclusion criteria as reviewed by myself and Dr. Muhammad. After re-consent was obtained, was given a quality of life and br ief pain questionnaire to complete. Contact information for study staff was provided to this family. Geri Arredondo-Research Coordinator Phone: [phone] Pager: [phone] documented in this encounter Plan of Treatment [...]
--- OUTSIDE RECORDS SUMMARY | ~2020-06-09 | XMS | Encounter Summary ---
Demographics + + + | Address | [address] | | | [place] [address] | + + + | Home Phone [...] Team Providers + +------+ + | Care Expert Medical Writer Name | Role | Phone | + +------+ + | Katie Dominique MD | PCP | | + +------+ + Reason for Visit + +--------+ + | Reason | Onset | Comments | | | Date | | + +--------+ + | Patient's Condition | 03/07/ | | | Worsened | 2007 | | + +--------+ + Encounter Details +--------+ + + + + | Date | Type | Department | Care Team | Description | +--------+ + + + + | 03/07/ | Telephone | Pediatric | Fawad Muhammad, | Patient's Condition | | 2007 | | Neurology at | MD | Worsened | | | | [place] | | | | | | [facility] | | | | | | [address] | | | | | | [place] | | | | | | [facility], | | | | | | [address] [place] [address] | | | | | | [place], [place] | | | | | | [address] | | | | | | [phone] | | | +--------+ + + + [...] this encounter Miscellaneous Notes Telephone Encounter - Wild Mcpherson, Shy Palma - 03/07/2008 3:59 PM PDTCall to Jarvis Sharmaves to esau purvis status. Jarvis reports that she has been off Fabrazyme for about 4 months -since she was . She did have a loss but has not yet started the Fabrazyme again. Jarvis complains of abdominal pain which is intermittent and getting worse. The pain is severe afte r eating.and radiates from right rib area up to right shoulder. She reports that she has inc reased bruising. She had a CBC which Jarvis said was reported as normal but her PCP has asked her to get "a special platlet test" at [facility] in [place]. Jarvis reports that she is very concerned about her condition in general. She reports increased headaches and fatig ue. It was difficult to come to appointments with the and miscarriage and feeling so ill. Jarvis would like the metabolic physician to call her PCP and discuss options and lana ecially discuss her pain. She will call back tomorrow for an update. I will notify the metab olic physician manager of investigations re the status.Electronically signed by Shy Rome Rn at 8 3:59 PM PDTTelephone Encounter - Xenia Herzog - 03/07/2008 3:49 PM PDTHas spoke with Daniel meredith and has also seen her PCP and they have done a lot of blood work and doesn't feel like she is going anywhere. Her current symptoms are fatigue, migraine headaches, severe nausea , sharp pains --hydroscan done today for gallbladder and not functioning normal, but not en ough to do anything. Needs to only eat oatmeal, low fat foods and bland foods. Has a f/u i n 6 weeks. She feels like her problems are because she has been off fabryzyme for so long. Had given her immitrex for migrains and it use to work but it doesn't anymore. She wants to go back on enzyme. Dr. Aguilar (pcp) doesn't feel the infusions will make that big of diff erence. She said Shy is going to have one of our doctors call Dr. Aguilar and explain that the p t needs to go back on ERT. She was given her pager number if she doesn't hear back from her by tomorrow. I told Jarvis it is difficult for our schedulers to put her in an Urgent slot when they look up appt's and she has no showed her last 2. She did not say anything. She would like to b e put on the urgent call list if someone cancels. I told her sometimes we do not know until that morning and it takes her at least 3 hours to get her. She said she needed 8-9 hours no irene. documented in this encount er Plan of [...]
--- OUTSIDE RECORDS SUMMARY | ~2020-06-09 | XMS | Encounter Summary ---
Demographics + + + | Address | [address] | | | [place] [address] | + + + | Home Phone [...] Team Providers + +------+ + | Care Crm System Administrator Name | Role | Phone | [...] [id number] | | | | | | [facility] | | | | | | [place], [place] | | | | | | [address] | | | | | | [phone] | | | +--------+ + + + [...]
--- OUTSIDE RECORDS SUMMARY | ~2020-06-09 | XMS | Encounter Summary ---
Demographics + + + | Address | [address] | | | [place] [address] | + + + | Home Phone [...] Team Providers + +------+ + | Care Erector Operator Name | Role | Phone | + +------+ + | Estiven Hallman DO | PCP | | + +------+ + Encounter Details +--------+ + + + + | Date | Type | Department | Care Team | Description | +--------+ + + + + | 04/03/ | MyChart | [facility] Comprehensive | Alda Marie | Recommendations | | 2019 | Encounter | Pain Center at | W, PhD [address] | | | | | [facility] | Ave [facility] [place] | | | | | [address] | [address] | | | | | [place] for [facility] | [phone] | | | | | and Healing, | | | | | | | | | | | | Floor [place], [place] | | | | | | [address] | | | | | | [phone] | | | +--------+ + + + [...]
--- OUTSIDE RECORDS SUMMARY | ~2020-06-09 | XMS | Encounter Summary ---
Demographics + + + | Address | [address] | | | [place] [address] | + + + | Home Phone [...] Team Providers + +------+ + | Care Diagnostic Technician Name | Role | Phone | [...] | | | | Morbid | Laurie [employer]ERSHIP GENERAL MANAGER | [facility] [address] | | | | | obesity with | [address] | | | | | BMI of | [address] | Center for | | | | | 50.0-59.9, | [facility] [place] | Health and | | | | | adult (HCC) | [address] | Healing, | | | | | Shadi | Phone: | Building 1, | | | | | disease | [phone] | 7th Floor | | | | | (HCC) | Fax: | [place], [place] | | | | | Benign | [phone] | [address] | | | | | essential | | Phone: | | | | | HTN | | [phone] | | | | | Procedures | | Fax: | | | | | CONSULT TO | | [phone] | | | | | CARDIOLOGY | | | +--------+--------+ + + + + Consultation [...] | | | | | 50.0-59.9, | [place], [place] | [place], [place] | | | | | adult (HCC) | [address] | [address] | | | | | Fabry | Phone: | Phone: | | | | | disease | | [phone] | | | | | (HCC) | Fax: | Fax: | | | | | Benign | [phone] | [phone] | | | | | essential | [...] | [facility] | | | with MISSILE AND MISSILE CHECKOUT TECHNICIAN | | | | [facility] | | | | | | | [address] | | | | | | | Center for | | | | | | | Health and | | | | | | | Healing, | | | | | | | Building 2 | | | | | | | [facility] [place] | | | | | | | [address] | | | | | | | Phone: | | | | | | | | | | | | | | Fax: | | | | | | | [phone] | + + + + + + + Encounter Details +--------+---------+ + + + | Date | Type | Department | Care Team | Description | +--------+---------+ + + + | 01/12/ | Office | Digestive Health | Laurie Whitfield, | Morbid obesity with | | 2019 | Visit | Center at [facility] [address] | DEALERSHIP GENERAL MANAGER [address] | BMI of 50.0-59.9, | | | | [address] | [facility] [place] | adult ([facility]) (Primary | | | | for Health and | [address] | Dx); Fabry disease | | | | Healing, Building 2 | | ([facility]); | | | | [place], [place] | | Gastroesophageal | | | | [address] | | reflux disease | | | | [phone] | | without esophagitis; | | | [...] : -[facility] for Adults -Equate version of [facility] daily multivitamin + Tobacco: we will [...] go to the 1st floor of the [facility] 2 building and have these labs done. + Pap test: Please obtain thru your primary care and we want to see the lab result from th e PAP smear. (not the note from your provider) + Pre-op Psychological Evaluation: you will need a follow up evaluation with our psychologi st. Your referral is at [facility], the Pain Management Office will call you [...] bariatric surgery. I have referred you to [facility] Cardiol germain. Please call to schedule with their office. + Weight Management classes: 2 classes are required in addition to your private appointment with the crm administrator. These classes will be scheduled apporoximately 1 month apart to allow t zoë for you to put the teaching into action. Please call [phone] to schedule these classes after you have had your Dietitian Appoin tment. Ask for Jennifer in bariatrics. + Insurance [...] weight. + My Chart Sign up for [place] so that we can communicate easily back [...] other providers does not guarantee that the [facility] Bariatric Surger y program will deem you [...] on that. Still sees medical genetics at [facility] for her Fabry's, states has OV's with them annually and infusions Q2 weeks. History of Present Illness: Jarvis Miguel is a 38 y.o. female who presents with a past [facility] history of morbid obesity with a There [...] Redux or Phen/fen: no Transthoracic ECHO: no Evangelical or cultural reason you would refuse blood [...] is under care of medical genetics at [facility], receives enzyme transfusions Q2 weeks. Medical genetics provider recommended cardiology eval uation at their 10/2017 office visit: EKG, echocardiogram and to establish with cardiology, p lia has not done so. Has almost daily [...] asthma. Denies hx of sleep apnea, stat es was told at one time she should [...] inches / 40 cm around (measure at [employer])? No 8. Gender = Male? No High risk of sleep apnea if "yes' to four or more Cardiovascular: Denies exertional chest pain, palpitations, syncope, orthopnea, or paroxysm al nocturnal dyspnea. Denies history of lower extremity edema. Has hypertension, on medicati on. Denies hyperlipidemia. Denies CHF, AL, ischemic heart disease, DVT/PE, or pulmonary hype [...] last A1c was done through PCP in [facility] about a month ago per patient and was over 9%. Denies history of g out. Health maintenance: PAP: has appointment tomorrow with investigative writer. OBJECTIVE Blood pressure 132/83, pulse 97, resp. [...] need a f/u 1:1 visit with our crm administrator and to complete our 2 weight management [...] preop risk assessment -she prefers to see [facility] Cardiology for that. Referral placed, pt to [...] go to the 1st floor of the [facility] 2 building and have these labs done. + Pap test: Please obtain thru your primary care and we want to see the lab result from th e PAP smear. (not the note from your provider) + Pre-op Psychological Evaluation: you will need a follow up evaluation with our psychologi . Your referral is at [facility], the Pain Management Office will call you [...] bariatric surgery. I have referred you to [facility] Cardioaydin groves. Please call to schedule with their office. + Weight Management classes: 2 classes are required in addition to your private appointment with the crm administrator. These classes will be scheduled apporoximately 1 month apart to allow t zoë for you to put the teaching into action. Please call [phone] to schedule these classes after you have had your Dietitian Appoin tment. Ask for Jennifer in bariatrics. + Insurance [...] weight. + My Chart Sign up for [place] so that we can communicate easily back [...] other providers does not guarantee that the [facility] Bariatric Surger y program will deem you [...] ASHANTI Carrera, MPH Bariatric Surgery Nurse Practitioner [facility] | CH[address] [facility] [address]. | [place], [place] | [address] | documented in this encounter Plan of [...] + + | [facility] | [address] | [place] [address] | | | [facility] | | | | | HEALTH + [...] | [facility] | | considered for monitoring intermodal owner operator truck driver glycemic control in patients with: | LABORATORY [...] [facility] | [address] | [place] [address] | | | SERVICES, SPECIAL | JAMIA [...] | [facility] | [address] | [place] [address] | | | SERVICES, CORE | PARK [...] | | | | | determined by [facility] | | | | | | Laboratories. See | | | | | | Compliance Statement B: | | | | | | [employer]/CSPerformed | | | | | | by [employer],[address] | | | | | | [facility] | | | | | | [address] | | | | | | [phone].[employer]. | | | | | | Last bassett MD, | | | | | | Lab. Director | | | | + + + + + + | COTININE | <2 | ng/mL | [facility] | | | | | | REG [...] [facility] | [address] | [place], [place] | | | [facility] | | [address] | | + + + + + [...] | + + + + + | [facility] | [address] | [place] [address] | | | SERVICES, CORE | PARK [...] [facility] | [address] | [place] [address] | | | SERVICES, CORE | PARK [...] [facility] | [address] | [place] [address] | | | SERVICES, CORE | PARK [...] | + + + + + | [facility] | [address] | [place] [address] | | | SERVICES, CORE | JAMIA [...] INTERPRETIVE | 70 - 180 nmol/L | [facility] | | | WHOLE | INFORMATION: Vitamin [...] | | | | | determined by [facility] | | | | | | Laboratories. See | | | | | | Compliance Statement B: | | | | | | [place]/CSPerformed | | | | | | by [employer],[address] | | | | | | Merlyn Cartwright [facility] | | | | | | [address] | | | | | | [phone].[employer]. | | | | | | com, Last Burnett MD, | | | | | | [...] [facility] | [address] | [place], [place] | | | [facility] | | [address] | | + + + + + [...] [facility] | [address] | [place] [address] | | | SERVICES, CORE | JAMIA [...] | | | | | determined by [employer] | | | | | | Laboratories. See | | | | | | Compliance Statement B: | | | | | | [employer]/CSPerformed | | | | | | by [employer],[address] | | | | | | [place], [place] | | | | | | [address] | | | | | | [phone].[employer]. | | | | | | Last [...] [facility] | [address] | [place], [place] | | | [facility] | | [address] | | + + + + + [...] [facility] | [address] | [place] [address] | | | SERVICES, CORE | JAMIA [...] | + + + + + | [employer] [employer] | [address] | [place] [address] | | | SERVICES, SPECIAL | JAMIA [...] | [facility] | [address] | [place] [address] | | | SERVICES, CORE | PARK [...] | | | LABORATORY | | | CHINESE | | | SERVICES, | | | [...] Kidney Disease <15 mL/min/1.73 sq m | CENTER FOR | | Kidney Failure Estimated GFR [...] | + + + + + | [facility] | [address] | [place] [address] | | | [facility] | | | | | HEALTH + [...]
--- OUTSIDE RECORDS SUMMARY | ~2020-06-09 | XMS | Encounter Summary ---
Demographics + + + | Address | [address] | | | [place] [address] | + + + | Home Phone [...] Team Providers + +------+ + | Care Carton Counter Feeder Name | Role | Phone | + +------+ + | Mikki Barajas MD | PCP | | + +------+ + Encounter Details +--------+ + + + + | Date | Type | Department | Care Team | Description | +--------+ + + + + | 04/27/ | Documentati | Digestive Health | Clinic, Surgery | | | 2018 | on | Center [place] [address] [address] | | | | | | [address] [facility] | | | | | | for Health and | | | | | | Healing, Building [address] | | | | | | [place], [place] | | | | | | [address] | | | | | | [phone] | | | +--------+ + + + [...]
--- OUTSIDE RECORDS SUMMARY | ~2020-06-09 | XMS | Encounter Summary ---
Demographics + + + | Address | [address] | | | [place] [address] | + + + | Home Phone [...] Team Providers + +------+ + | Care Sys Dir Name | Role | Phone | + +------+ + | Gavinolizandro Estiven | PCP | | + +------+ + Reason for Visit + +--------+ + | Reason | Onset | Comments | | | Date | | + +--------+ + | Medication | 09/13/ | | | management | 2017 | | + +--------+ + Encounter Details +--------+ + + + + | Date | Type | Department | Care Team | Description | +--------+ + + + + | 09/13/ | Telephone | [facility] at [facility] 7th | eBnny Hernandez MD | Medication | | 2017 | | Floor [address] | [address] [facility] | management | | | | St Mailcode: [facility] | [facility] | | | | | [place], [place] | [place], [place] | | | | | [address] | [address] | | | | | [phone] | [phone] | | | | | | | [...] Telephone Encounter - Benny Hernandez MD - 09/13/2017 11:52 AM MINHJarvis called me yesterday evening asking for help arranging for her to receive her Fabrazyme infusion. She normally receives her infusions at home, but due to bad weather the nurse was unable to come to her h ome to administer her last infusion. She spoke to her PCP, Dr. Hallman who told her she need ed the OK of Dr. Rodriguez to proceed. This morning I spoke to the supervising nurse at [facility] in [place] and explained that Jarvis had the Fabrazyme and just needed to com e in to receive it. She subsequently discovered that Dr. Hallman had written orders for an in fusion, but they had not been acted on, and Jarvis had not been contacted. I proved her with Jarvis's telephone number, and they were going to contact her to schedule a time to come and get her infusion. sofya in this e ncounter Plan of Treatment [...]
--- OUTSIDE RECORDS SUMMARY | ~2020-06-09 | XMS | Encounter Summary ---
Demographics + + + | Address | [address] | | | [place] [address] | + + + | Home Phone [...] Team Providers + +------+ + | Care Rocket Scientist Name | Role | Phone | + +------+ + | Mikki Barajas MD | PCP | | + +------+ + Reason for Referral Diagnostic Testing (Routine) + +--------+ + + + + | Status | Reason | Specialty | Diagnoses / | Referred By | Referred To | | | | | Procedures | Contact | Contact | + +--------+ + + + + | New Request | | Cardiology | Diagnoses | O Elvin, | [place] | | | | | Fabry | Sterling Y, | Health & | | | | | disease | [address] | [employer] | | | | | ([facility]) | Paxton Jin | [address] | | | | | Procedures | Naty Isaacs | [address] | | | | | TRANSTHORACI | [place], [place] | RO[address] | | | | | C | [address] | [place], [place] | | | | | ECHOCARDIOGR | Phone: | [phone] | | | | | AM, ADULT | [phone] | Phone: | | | | | | Fax: | [phone] | | | | | | [phone] | | + +--------+ + + + + Reason for Visit + + + | Reason | Comments | + + + | Pre-op evaluation | | + + + Encounter Details +--------+---------+ + + + | Date | Type | Department | Care Team | Description | +--------+---------+ + + + | 05/15/ | Office | Preoperative | O Sterling Oconnor | Preop examination | | 2020 | Visit | Medicine Clinic at | MD Shabbir [address] | (Primary Dx); Fabry | | | | [facility] | [facility] [address] | disease (HCC); Type | | | | [address] | [place], [place] | 2 diabetes mellitus | | | | [facility] | [phone] | with other specified | | | | and Healing, | [phone] | complication, with | | | | [address] | | long-term current | | | | [place], [place] | | use of insulin | | | | [phone] | | ([facility]); Morbid | | | | [phone] | | obesity due to | | | | | | excess calories | | | | | | ([facility]); DM type 2 | | | | | | without retinopathy | | | | | | ([facility]); Benign | | | | | | essential HTN; PTSD | | | | | | (post-traumatic | | | | | | stress disorder); | | | | | | PONV (postoperative | | | | | | nausea and vomiting) | +--------+---------+ + + + Anesthesia Record + + [...] in this encounter Patient Instructions Patient Instructions O Sterling Oconnor MD - 05/15/2020 9:00 AM PDT PREOPERATIVE INSTRUCTIONS To help minimize risk of asymptomatic spread of coronavirus during your procedure we ask th at you: Social Distance: Follow physical distancing and handwashing guidelines. As you are able, this applies to the person who will be bringing you to and from surgery as well. Avoid contact with others or leaving the home as much as possible prior to surgery, lana ecially during the two days immediately prior to your procedure. Report Symptoms: Check for the symptoms daily prior to surgery. An [place] Forestry Worker will include a symptom chec k when they call 1-2 days prior to your procedure with your check in time. Notify us if you have any of the following: o Symptoms including, but not limited to, fever, sore throat, runny nose, cough, shortness of breath, and body aches. o International travel within the last 14 days to CDC Level 3 risk countries. For updated i nformation in restricted countries visit: https://www.cdc.gov/coronavirus/2019-ncov/traveler s/uja-eor-amkhqm-notices.html o Diagnosis of COVID-19 o Contact with known or suspected or suspected COVID-19 cases within the last 14 days o Cruise ship travel within the last 30 days. For updated information on cruise ships visit : https://wwwnc.cdc.gov/travel/notices/warning/axuqjasfamf-wlbfkx-kmyk If you have any questions about COVID-19 symptoms and care, please call the [facility] COV ID-19 Hotline at [phone] between 8 a.m. and 8 p.m. 7 days a week. As part of [facility]'s efforts to keep patients and visitors safe, this is the current vi sitation policy--please see more about what to expect on the day of surgery in the informati on you also receive from your surgical team: Patients are allowed one healthy adult (18 or older) support person (aka visitor) per d ay. Visitors will NOT be allowed in the Main hospital operating room (SOR) and [facility] pre-proc edure area unless needed for their support answering questions or if the care team thinks th ey are needed for patient care and safety (information about [facility] and procedure unit vi sits is coming soon) Masks are required to be worn by anyone age 2 or older. We encourage you and your suppo rt person to wear your own mask from home to the hospital. However, we will provide you one if needed. Refusal to wear a mask may result in cancellation of your surgery. Upon entering our facility you and your support person will be health screened by our t charissa in the lobby. Please follow instructions from your surgery and surgery scheduling team about getting test ed for COVID-19 before your surgery. Any questions or concerns about this process need to b e called in to your surgeon's office, not the Preoperative Medicine Clinic. If you are not having respiratory symptoms or concerning close contacts but would like to c ancel/postpone your surgery, please contact your surgeon directly. More information can be found here: [email or web address]. Pre-surgery "homework" * Unless otherwise instructed by your surgeon, stay active between now and surgery, even st riving to increase your activity levels if you can (ex. taking at least one walk daily, even around the block). This can help speed your surgery recovery. * Follow any nutrition recommendations from your surgeon (including special diet or nutriti onal supplements) Surgery check-in location Admitting - [facility], ninth floor lob Surgery Check in Time Your surgery staff will call you 1-3 business days before your surgery to confirm your exac t arrival and check-in time for your surgery day. The Preoperative Medicine Clinic does not have access to check in-times, so please contact your surgeon's office if you need help cinthya nning for your arrival time. Do NOT eat or drink after midnight the night before surgery On the day BEFORE your surgery, drink plenty of fluids. Do NOT eat or drink after midnight the night before surgery. This includes water, coffe e, candy, mints and gum. Medication instructions General Diabetes instructions: If you have a blood glucose meter, check your blood glucose the evening prior to surgery, w hen you wake up the day of surgery, and every 4 hours until you reach the hospital. Your bl ood glucose will be checked when you arrive at the hospital. If you experience a glucose level less than 70 during the time you are fasting, take 4 gluc ose tablets. If you do not have glucose tablets, you can drink 4 ounces (1/2 cup) of a prisca r sugar-containing beverage such as apple juice or osiris gianna--ideally, do this at least two hours before your surgery. Wait 15 minutes, and recheck your glucose level If it is still less than 70, repeat the above treatment until your glucose level is over 70 . Be sure to report the time and amount of any oral intake on arrival to the hospital. Insulin: If you are on both long acting and short acting (mealtime) insulin: Do not take short acting insulin/mealtime when fasting. Prior to fasting, take your usual d ose of short acting insulin with your meals. If you take your long acting insulin in the morning, take 80% of the usual dose in the morn ing on the day of surgery--this equals 36 units The morning of surgery, DO take these medications with a sip of water: Tylenol if needed for pain Hydroxyzine if needed for anxiety Propranolol Latuda Omeprazole The morning of surgery, do NOT take these medications: michel Vitamins and minerals Do NOT take any of these for the 7 days before your surgery, unless your doctor tells yo u to: Aspirin, fish oil supplements, vitamin E, NSAIDs (Advil, Aleve, ibuprofen, etc.) or he rbal supplements. These drugs may cause extra bleeding and bruising. If you need a pain medication for general purposes, use Tylenol as directed. You can ev en take it on the morning of surgery, if you need to. Call us if you have any questions about any medications you are taking. Skin preparation to help avoid surgical site infections HIBICLENS GUIDE TO GENERAL SKIN CLEANSING AT HOME BEFORE SURGERY Before you bathe or shower: ? Read the instructions given to you by your healthcare practitioner, and begin your genera l skin cleansing protocol as directed. ? Carefully read all directions on the product label. ? Hibiclens is not to be used on the head or face, keep out of the eyes, ears and mouth. ? Hibiclens is not to be used in the genital area. ? Hibiclens should not be used if you are allergic to chlorhexidine gluconate or any other ingredients in this preparation. *See Hibiclens label for full product information and precautions. When you bathe or shower the night before your surgery: ? If you plan to wash your hair, do so with your regular shampoo. Then rinse hair and body thoroughly to remove any shampoo residue. ? Wash your face with your regular soap or water only. ? Thoroughly rinse your body with warm water from neck down. ? Use Hibiclens as you would any other liquid soap. Please do not put the Hibiclens on a wa sh cloth, apply directly to the skin and wash gently. Apply the minimum amount of Hibiclens necessary to cover the skin. Leave the Hibiclens on your skin for 1 minute, then rinse off. ? Rinse thoroughly with warm water. ? Do not use your regular soap after applying and rinsing Hibiclens. When using Hibiclens for a second day in a row (morning of surgery, as soon as you wake up) : ? Shower/bathe again using Hibiclens in the same method as described above. ? Do not apply any lotions, deodorants, powders or perfumes to the body areas that have been cleaned with Hibiclens. Other important instructions for the day of surgery Do NOT shave the surgical area. Do NOT wear a tampon on the day of your procedure. Do NOT smoke, drink alcohol or use recreational drugs for 24 hours before your surgery. ? Let your surgeon know right away if you do not feel well. Call them if you think you are coming down with a "cold" a few days before your surgery. ? Do NOT bring your own medications unless your doctor tells you to. ? Do NOT wear makeup, perfume, lotions, deodorant, powder or hairspray. ? Do NOT wear any jewelry to the hospital. ? Wear loose, comfortable clothing. ? Leave all your valuables at home. ? Make sure you have enough travel time so you're not late for your check-in for surgery. ? [place] your teeth the night before and the morning of your procedure. How to prevent complications after surgery ? Use an incentive spirometer or peep breathe to keep your lungs working properly and to help prevent breathing problems. Use it at least once every hour you are awake to help you take long, deep breaths. ? Exercise your legs and feet to help prevent blood clots. Your doctor might order sequent ial air compression stockings to help the blood flow in your legs. ? Walk and move around to help with normal blood flow and deep breathing. Going home ? Your surgical team will let you know when you are medically ready to go home. ? If you stayed overnight in the hospital after surgery, please talk to your hospital team about how to make transportation plans for going home. ? If you have questions or concerns after you go home, please call your doctor's office. I f it is after office hours, call the [facility] asphalt spreader operator at [phone] and ask them to page your doctor. Service animals Service animals are NOT allowed in the following areas: ? [facility] - 6A ? [facility] - 11B PCU ? [facility], Building 1 - pre-op and post-op areas ? [facility], Building 2 - multispecialty procedure unit (MSPU) documented in this encounter Progress Notes Sterling Yee MD - 05/15/2020 9:00 AM PDT PRE-OPERATIVE MEDICINE CLINIC (PMC) CONSULT NOTE Author: Sterling Ibarra MD, [facility], [facility] Referring Physician: Eber Cho MD Primary Care Provider: Mikki Barajas MD Reason for Consult: Preoperative evaluation and risk assessment Proposed Procedure/Date: laparoscopic RYGB 06/05 Proposed Procedure Location: [facility] HISTORY OF PRESENT ILLNESS: Jarvis Enrique is a 40 y.o. female here for preoperative evaluation of medical comorbid conditions and risk assessment in anticipation of the above procedure. The patient's history is significant for morbid obesity with unsuccessful attemp ts at sustained dietary/medical WT loss. Body mass index is 59.58 kg/m. Her obesity is c omplicated by diabetes. 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), acroparesthesia, fatigue, mild hearing loss, extremity "heaviness", inability to sweat (gets overheated) Followed by medical genetics at [facility] On Fabrazyme q2 weeks Supposed to have ECHO, PMC team was able to get it scheduled for today DM on insulin Last A1C 7.5 per her report AM CBGs 90s PTSD On QHS prazosin, Latuda, and propranolol for this No triggers in the healthcare setting HTN Chart history of MICAH but she says she doesn't have it Prior carol-operative or carol-anesthesia complications: (+) PONV --does very well with premedication Says her TMJ has never affected intubation ROS: Pulmonary: no shortness of breath no cough [...] Renal: no renal failure no electrolyte abnormalities Urology/Media Librarian: No dysuria no Urologic Conditions Endo: (+) [...] skin conditions AutoImmune Disorders: No autoimmune disorders Current medications reviewed / updated Current Outpatient Medications Medication Sig acetaminophen 325 [...] oral capsule Take 50 mg by mouth every six hours as needed fo r anxiety. insulin glargine 100 unit/mL subcutaneous solution Inject 45 Units under the skin (SUBC ) once daily in the morning. JANUVIA 100 mg oral tablet Take 100 mg by mouth once daily. LATUDA 120 mg oral tablet Take 120 mg by mouth once daily. NOVOLOG U-100 INSULIN ASPART 100 unit/mL subcutaneous solution Inject 1-4 Units under t he skin (SUBC) three times daily before meals. nystatin 100,000 unit/gram topical powder Apply to affected area two times daily. Apply to candidal lesions until lesions have healed. Indications: skin infection omeprazole 20 mg oral capsule,delayed release(DR/EC) Take [...] the skin (SUBC) once daily at bedtime. Level of confidence in medication reconciliation accuracy: High Allergies reviewed / updated Allergies Allergen Reactions Augmentin [Amoxicillin-Pot Clavulanate] Nausea and Vomiting rash Doxycycline Rash Clarification Needed PEN V K Sulfa (Sulfonamide Antibiotics) Past medical history reviewed / updated Past Medical History: Diagnosis Date Abdominal pain Depression Diabetes (HCC) Dizziness Fabry's disease (HCC) infusions Q 2 weeks thru a port GERD (gastroesophageal reflux disease) Headache HTN (hypertension) Intertriginous candidiasis Lipidoses 07/01/2005 Fabry disease Obsessive compulsive disorder PONV (postoperative nausea and vomiting) Port catheter in place TMJ (dislocation of temporomandibular joint) history of clicking and facial pain/ never locked up on her Past surgery reviewed / updated Past Surgical History Procedure Laterality Date Cholecystectomy 11/2008 Appendectomy 04/2009 ruptured, hospitalized 21 days section 02/09/2010 emergency Tubal ligation 02/09/2010 Oophorectomy, left 08/2012 Due to cysts Hysterectomy, partial early 09/2012 Salpingo-oophorectomy, right later 09/2012 and left salpingectomy, due to cysts Central line placement 04/2013 Had portacath replaced, now on the right side. 02.03.2017 to be moved Family history reviewed / updated Family History Problem Relation Heart Disease Mother V Fib, and has a AICD no history of cardiomyopathy Fabry's disease Mother Breast Cancer Maternal Grandmother Prostate Cancer Maternal Grandfather Social history reviewed / updated Social History Tobacco Use Smoking status: Never Smoker Smokeless tobacco: Never Used Substance Use Topics Alcohol use: No Drug use: No PHYSICAL EXAM: Last Vitals: BP 122/68 | Pulse 68 | Temp 36.4 C (97.6 F) (Forehead) | Resp 22 | Ht 1.588 m (5' 2.5") | Wt 150.1 kg (331 lb) | SpO2 100% | BMI 59.58 kg/m | BSA 2.57 m Body mass index is 59.58 kg/m. General: Appearance: Healthy, Age appropriate, No distress [...] devices: Other Implanted Devices R chest PORT LABS & DATA REVIEWED/ORDERED Lab Results Component Value Date WBC 8.95 05/15/2020 HB 13.5 05/15/2020 HCT 41.3 05/15/2020 PLT 241 05/15/2020 MCV 86.0 05/15/2020 RDW 40.1 05/15/2020 Lab Results Component Value Date NA 135 05/15/2020 K 4.0 05/15/2020 CL 98 05/15/2020 BICARB 29 05/15/2020 BUN 9 05/15/2020 CR 0.85 05/15/2020 GLU 337 05/15/2020 CA 8.2 05/15/2020 AST 34 01/12/2019 ALT 54 01/12/2019 AP 142 01/12/2019 TBILI 0.3 01/12/2019 TP 7.8 01/12/2019 ALB 3.3 01/12/2019 Lab Results Component Value Date ABO A 05/15/2020 RH Positive 05/15/2020 Lab Results Component Value Date A1C 11.3 (H) 05/15/2020 EKG: Personally reviewed. Results for orders placed or performed in visit on 05/15/20 12 LEAD ECG Result Value Ref Range VENTRICULAR RATE 62 bpm ATRIAL RATE 62 ms P-R INTERVAL 188 ms P AXIS 13 deg QRS DURATION 97 ms QT 424 ms QTC-BAZETT 432 ms QTC-FRIDERICIA 429 ms R AXIS -30 deg T AXIS 58 deg ECG IMPRESSION Sinus rhythm ECG IMPRESSION Low voltage, precordial leads ECG IMPRESSION Consider anterior infarct- BORDERLINE ECG - ECG IMPRESSION Electronically signed by: PRELIMINARY - Unconfirmed ECHO today: Final Impressions: 1. The left ventricular size is normal. 2. There is mild concentric left ventricular hypertrophy. 3. The LV function is normal. 4. Right ventricular size, thickness and function are normal. 5. Strain was not performed due to image quality but no overt echocardiographic findings to suggest heart involvement in Fabry. However, cardiac MRI with T1 mapping is recommended if there is a clinical suspicion or symptoms. 6. There are no prior exams available for comparison. Perioperative risk evaluation: 2014 ACC/AHA Perioperative Cardiac Risk Stratification for non-emergent, non-cardiac surger y Are active cardiac conditions present? No Calculate the combined surgical and patient-specific risk: using the [place] perioperative ca rdiac risk calculator, the risk of major adverse cardiac event (MACE) is: less than 1%. No further risk stratification for coronary disease is indicated. Estimated ASA class 4 ASSESSMENT and RECOMMENDATIONS: Perioperative risk assessment: Jarvis Enrique is a 40 y.o. female referred for p re-operative evaluation and risk assessment before the above surgery for the above surgical indications. Based on the clinical information obtained and reviewed during this visit, the overall assessment is that the patient is having Intermediate risk surgery with identified risk factors. The patient is stable / optimized for surgery: Additional testing needed: no aside from preop COVID testing Additional optimization needed: no Venue: SOR is appropriate based on this patients comorbid conditions and [id number] care coordination needs Medication management recommendations: The patient was advised to continue all usual med ications except as noted in Patient Instructions (After Visit Summary given to pt) Fabry's disease--Followed by medical genetics at [facility], On Fabrazyme q2 weeks. SCreening ECHO completed today and overall reassuring. Notes one of her manifestations is the inabi lity to sweat (gets overheated) , FYI for intraop temp management. DM on insulin--Last A1C 7.5 per her report though much more poorly controlled with A1C 1 1.[address]. [address] Cho in case surgery needs to be delayed though bariatric surgery will improve glycemic control PTSD--No triggers in the healthcare setting HTN--continue propranolol PONV--FYI to the DOS team for management I counseled Jarvis Enrique regarding perioperative risk (cardiac/bleeding/ DVT/ res piratory failure/ infection, etc.) and methods to mitigate risk. I advised the patient rega rding NPO requirements, hydration before surgery, showering, general body hygiene. All pre- procedure instructions given to the patient (after-visit summary). All of patient's questio ns were addressed. The patient verbalized understanding of the instructions given. Thank cassius iglesias for the opportunity to contribute to this patient's care. Sterling Ibarra MD, [facility], [facility] QUALITY TECHNICIAN [facility] DEPARTMENT OF MEDICINE DIVISION OF HOSPITAL MEDICINE PRE-OPERATIVE MEDICINE CLINIC RECRUITING [place] [address] [phone] (fax) Tdocumented in this encounter Plan of Treatment [...] | + + +--------+ + + | COMMUNICATION TO [facility] | Procedures | Routin | Preop examination | Ordered: 05/15/2020 | | LAB DRAW | | e | | | + + +--------+ + [...] ECHOCARDIOGRAM, | e | 10:31 AM | ([facility]) | procedure are in the | | [...] formed At | + +---- + | [facility] | [facility] DEPT OF | | [facility] Adult Echocardiography Laboratory [address] | | [place], [place] [address] Ph: | | | Pt Name: JARVIS ENRIQUE | | | Study Date/Time 05/15/2020 / 10:31:25 AMMRN: [id number] | | | Most recent prior: -Acc #: [id number] | | | No. previous echos: 0DOB: 1980 40 years | | | Heart Rate: 60 bpmHeight: 63.0 in | | | Blood Pressure: 116/69 mm/HgWeight: 325.8 lb | | | Gender: FBSA: 2.38 m | | | Order ID: [id number] Study | | | [facility]: Mary Carballo BS, RDCS, AE, RVTReferring | | | Provider: STERLING TORRESERModalkayden Performed: 2D, Color flow, | | | [...] | indexed values Report electronically signed by: [id number] Kostas Leonard | | | (05/15/2020, 12:14:18 [...] | | | |Report electronically signed by: [id number] Kostas Leonard MD (05/15/2020, 12:14:18 PM) | | | | | | | | | | | | Final | | + +---- + + + | Procedure Note | + + | Interface, Cardiology Results - 05/15/2020 12:14 PM [facility] | | [facility] Echocardiography Laboratory [address] [place] [address] | | [place], [place] [address] Pt Name: JARVIS | | MARCELLO ENRIQUE Study Date/Time 05/15/2020 / 10:31:25 AMMRN: [id number] | | Most recent prior: -[facility] #: [id number] No. previous echos: 0DOB: | | 1980 40 years Heart Rate: 60 bpmHeight: 63.0 in Blood | | Pressure: 116/69 mm/HgWeight: 325.8 lb Gender: FBSA: | | 2.38 m | | Order ID: [id number] Study [facility]: | | Mary Carballo BS, RDCS, AE, RVTReferring Provider: STERLING TORRESVALLEYWISE HEALTH MEDICAL CENTERyudy | | Performed: 2D, Color flow, Spectral [...] and indexed values Report electronically signed by: [id number] [facility] | | Horacio GRIMES (05/15/2020, 12:14:18 PM) [...] | | | |Report electronically signed by: [id number] Kostas Leonard MD (05/15/2020, 12:14:18 PM) | | | | | | | | Final | + + + + + + + | Performing | Address | City/State/Zipcode | Phone Number | | Organization | | | | + + + + + | [facility] DEPT OF | [address] [facility] | [place], [place] | | | CARDIOLOGY | [facility] | [address] | | + + + + + [...] + | [facility] | [address] | [place] [address] | | | SERVICES, | [address] [...] + | [facility] | [address] | [place] [address] | | | SERVICES, | [address] [...] [facility] | [address] | [place] [address] | | | SERVICES, CENTER FOR | | | | | HEALTH [...] | [facility] | | considered for monitoring assisted glycemic control in patients with: | LABORATORY [...] | + + + + + | [facility] | [address] | [place] [address] | | | SERVICES, SPECIAL | PARK [...] | | | LABORATORY | | | AFGHAN | | | SERVICES, | | | [...] MDRD equation recommended by the National | [facility] | | Kidney Disease Education Program. Estimated [...] + + + + + | [facility] | [address] | [place] [address] | | | SERVICES, [facility] | | | | | [...] + + + + | [facility]-HINA | 432 | ms | [facility] | | | | | | OF | | | | | | CARDIOLOGY | | + + + + + + | [facility]TC-FRIDERI | 429 | ms | [facility] [...] + + + + + | [facility] | [address] | [place], [place] | | | CARDIOLOGY | [address] | [address] | | + + + + + documented in this encounter Visit Diagnoses + + | Diagnosis | + + | Preop examination - Primary Preoperative examination, unspecified | + + | Fabry disease (HCC) Lipidoses | + + | Type 2 diabetes mellitus with other specified complication, with long-term current use | | of insulin (HCC) | + + | Morbid obesity due to excess calories (HCC) | + + | DM type 2 without retinopathy (HCC) Type II or unspecified type diabetes mellitus | | without mention of complication, not stated as uncontrolled | + + | Benign essential HTN Essential hypertension, benign | + + | PTSD (post-traumatic stress disorder) Posttraumatic stress disorder | + + | PONV (postoperative nausea and vomiting) Nausea with vomiting | + + documented in this encounter
--- OUTSIDE RECORDS SUMMARY | ~2020-06-09 | XMS | Encounter Summary ---
Demographics + + + | Address | [address] | | | [place] [address] | + + + | Home Phone [...] Team Providers + +------+ + | Care Welt Rander Name | Role | Phone | + +------+ + | Gavinolizandro Estiven | PCP | | + +------+ + Reason for Visit + +--------+ + | Reason | Onset | Comments | | | Date | | + +--------+ + | Medication | 04/28/ | | | management | 2013 | | + +--------+ + Encounter Details +--------+ + + + + | Date | Type | Department | Care Team | Description | +--------+ + + + + | 04/28/ | Telephone | [facility] at [facility] 7th | Benny Hernandez MD | Medication | | 2013 | | Floor [address] | [address] [facility] | management | | | | St Mailcode: [facility] | [facility] | | | | | [place], [place] | [place], [place] | | | | | [address] | [address] | | | | | [phone] | [phone] | | | | | | | [...] Notes Telephone Encounter - Xenia Herzog - 04/28/2014 9:56 AM Manuelmian called quite upset. She arrived at her inf today and they said they did not have the authorization for the increase of medication so they could not give her infusion. I called Rocio [facility] [phone] she stated that she was not aware of any increas e in medication ( they would not have the dose on hand today) until she called Dr. Hallman's office for the orders to be signed. They are only good for 90 days and she called to let the m know they didn't even have signature for the current orders (before any increase). I expl ained she should get her regular dose via those orders until the increase is approved and pr ior auth obtained. She understood this and is just waiting for Dr. Hallman's office to fax the orders back. I called Jarvis and explained this. 10 :00 AM Isaccumented in this encounter Plan of Treatment +--------+ [...]
--- OUTSIDE RECORDS SUMMARY | ~2020-06-09 | XMS | Encounter Summary ---
Demographics + + + | Address | [address] | | | [place] [address] | + + + | Home Phone [...] Team Providers + +------+ + | Care Corrosion Control Specialist Name | Role | Phone [...] | | | | [address] | [place], [place] | | | | | | Manolo [address]wright | [address] | | | | | | [place], | Phone: | | | | | | [place] [address] | [phone] | | | | | | Phone: | Fax: | | | | | | [phone] | [phone] | | | | | | Fax: | | | | | | | [phone] | | +--------+--------+ + + + + Encounter Details +--------+---------+ + + + | Date | Type | Department | Care Team | Description | +--------+---------+ + + + | 10/17/ | Office | [facility] at [facility] 7th | Marcellus Rodriguez MD | Fabry disease in | | 2016 | Visit | Floor [address] | [address] [facility] | heterozygous female | | | | St Mailcode: [facility] | [facility] [address] | ([facility]) (Primary Dx) | | | | [facility] [place], [place] | [place], [place] | | | | | [address] | [address] | | | | | [phone] | [phone] | | | | | | | [...] 3 months ago sent labs of to [place]. We do not know the re sults, [...] RTC in one year. Marcellus Rodriguez MD [facility] 7TH FLOOR [address] [place] [address] Mailcode: [place] [address] documented in this enc ounter [...]
--- OUTSIDE RECORDS SUMMARY | ~2020-06-09 | XMS | Encounter Summary ---
Demographics + + + | Address | [address] | | | [place] [address] | + + + | Home Phone [...] + | | | | [place] [address] | | + + + + + | Jordyn Sharmaves | ECON | NONE | + | | | | [place] [address] | | + + + + + Care Team Providers + +------+ + | Care Monogram Machine Operator Name | Role | Phone [...] PHYSIATRY [address] | MD [address] | | | | | [address] | [place], [place] | | | | | [place] | [address] | | | | | [address] | | | | | | [phone] | | | +--------+ + + + [...]
--- OUTSIDE RECORDS SUMMARY | ~2020-06-09 | XMS | Encounter Summary ---
Demographics + + + | Address | [address] | | | [place] [address] | + + + | Home Phone [...] Providers + +------+ + | Care Music Grapher Name | Role | Phone | + +------+ + | Estiven Hallman | PCP | | + +------+ + Encounter Details +--------+ + + + + | Date | Type | Department | Care Team | Description | +--------+ + + + + | 04/22/ | MyCcrist | Metabolic Genetics | Genny Hagan | lab work | | 2018 | Encounter | at [facility] | B, LIBRARY CLERK [address] | | | | | [address] [facility] | [facility] | | | | | [place] | [place], [place] | | | | | [facility] | [address] | | | | | [address] [place] [address], | [phone] | | | | | [place] [address] | | | | | | [phone] | | | +--------+ + + + [...]
--- OUTSIDE RECORDS SUMMARY | ~2020-06-09 | XMS | Encounter Summary ---
Demographics + + + | Address | [address] | | | [place] [address] | + + + | Home Phone [...] Team Providers + +------+ + | Care Authorization Specialist Name | Role | Phone | [...]
--- OUTSIDE RECORDS SUMMARY | ~2020-06-09 | XMS | Encounter Summary ---
Demographics + + + | Address | [address] | | | [place] [address] | + + + | Home Phone [...] Team Providers + +------+ + | Care Hims Manager Name | Role | Phone | + +------+ + | Gavinolizandro Estiven | PCP | | + +------+ + Reason for Visit + +--------+ + | Reason | Onset | Comments | | | Date | | + +--------+ + | Lab Results | 04/07/ | | | | 2013 | | + +--------+ + Encounter Details +--------+ + + + + | Date | Type | Department | Care Team | Description | +--------+ + + + + | 04/07/ | Telephone | [facility] at [facility] 7th | Butch Rodriguez MD | Lab Results | | 2013 | | Floor [address] | [address] | | | | | St Mailcode: [facility] | [facility] | | | | | [place], [place] | [place], [place] | | | | | [address] | [address] | | | | | [phone] | [phone] | | | | | | | [...] Notes Telephone Encounter - Xenia Herzog - 04/07/2014 9:36 AM PDTTalked to Jarvis. Electronical ly signed by Xeina Herzog at 04/07/2014 9:36 AM PDTTelephone Encounter - Xenia Herzog - 04/07/2014 9:36 AM PDTMessage copied by XENIA HERZOG on FriApr 07, 2014 9:36 AM ------ Message from: BUTCH RODRIGUEZ MD Created: FriApr 05, 2014 5:09 PM Regarding: RE: Please comment on Jarvis Miguel labs Results look good, in particular renal function. You can reassure her. ----- Message ----- From: Xenia Herzog Sent: 04/01/2014 9:42 AM To: Butch Rodriguez MD Subject: Please comment on Jarvis Miguel labs Please review so I can call her once with her and Enoch's test results. Thanks. ------ documented in this e ncounter Plan of [...]
--- OUTSIDE RECORDS SUMMARY | ~2020-06-09 | XMS | Encounter Summary ---
Demographics + + + | Address | [address] | | | [place] [address] | + + + | Home Phone [...] Providers + +------+ + | Care Maintenance Craftsman Name | Role | Phone | + +------+ + | Mikki Barajas MD | PCP | | + +------+ + Encounter Details +--------+ + + + + | Date | Type | Department | Care Team | Description | +--------+ + + + + | 05/23/ | MyChart | Digestive Health | | RE:Surgery postponed | | 2020 | Encounter | Center at [facility] [address] | | | | | | [address] [facility] | | | | | | for Health and | | | | | | Healing, [address] | | | | | | [place], [place] | | | | | | [address] | | | | | | [phone] | | | +--------+ + + + [...]
--- OUTSIDE RECORDS SUMMARY | ~2020-06-09 | XMS | Encounter Summary ---
Demographics + + + | Address | [address] | | | [place] [address] | + + + | Home Phone [...] Team Providers + +------+ + | Care Match Up Worker Name | Role | Phone | [...] | Dig[facility]ive Hc | | | with PATROL SUPERVISOR | | | | [facility] [address] | | | | | | | [address] | | | | | | | Center for | | | | | | | Health and | | | | | | | Healing, | | | | | | | [address] | | | | | | | [place], [place] | | | | | | | [address] | | | | | | | Phone: | | | | | | | [phone] | | | | | | | Fax: | | | | | | | [phone] | +--------+ + + + + + Encounter Details +--------+---------+ + + + | Date | Type | Department | Care Team | Description | +--------+---------+ + + + | 01/18/ | Office | Digestive Health | [address], | Morbid obesity, | | 2019 | Visit | Center at [facility] [address] | [place], [place] [address] | unspecified obesity | | | | [address] [facility] | [address] | type (HCC) (Primary | | | | for Health and | [place], [place] | Dx); DM type 2 | | | | Healing, [address] | [address] | without retinopathy | | | | [place], [place] | [phone] | ([facility]) | | | | [address] | | | | | | [phone] | | | +--------+---------+ + + + [...] this encounter Progress Notes [address], [facility], [place] - 01/18/2019 1:00 PM PDTFormatting of this note might be diff erent from the original. Referring Provider: Estiven Hallman DO [facility], Pre-Bariatric Surgery Visit Follow-up diet consult prior to having Nessa-En-Y gastric bypass surgery or Sleeve Gastrecto my. Documented Time of Visit: 1:18 to 1:47 (29 minutes tyrr-kv-tsli with patient) SUBJECTIVE: More protein More water [...] days. Chasing her granddaughter. Swimming next m [facility] OBJECTIVE: Height: Ht Readings from Last 1 [...] post-surgery diet progression. 4. Call or send 121nexust message to dietitian with any questions. Contact information was provided. Follow up with dietitian prior to surgery (1:1 visit or WM class) [address], [facility], [place] [facility] Bariatrics [phone] documented i n this encounter Plan of [...] + +--------+ + + + | HI MNT RE-ASSESSMNT | Routin | 01/18/2019 | [...]
--- OUTSIDE RECORDS SUMMARY | ~2020-06-09 | XMS | Encounter Summary ---
Demographics + + + | Address | [address] | | | [place] [address] | + + + | Home Phone [...] Team Providers + +------+ + | Care Transport Company Manager Name | Role | Phone | [...] | | 2015 | | Department | [facility] | | | | | | Internal Medicin | | | | | | [address] [facility] | | | | | | [place] [address] | | | | | | [phone] | | | | | | | [...]
--- OUTSIDE RECORDS SUMMARY | ~2020-06-09 | XMS | Encounter Summary ---
Demographics + + + | Address | [address] | | | [place] [address] | + + + | Home Phone [...] Team Providers + +------+ + | Care Hacksaw Inspector Name | Role | Phone | + +------+ + | Lexx Estiven | PCP | | + +------+ + Encounter Details +--------+ + + + + | Date | Type | Department | Care Team | Description | +--------+ + + + + | 02/06/ | Documentati | [facility] at [facility] 7th | Shaina Barrett | | | 2016 | on | Floor [address] | | | | | St Mailcode: [facility] | | | | | | [facility] [place], [place] | | | | | | [address] | | | | | | [phone] | | | +--------+ + + + [...]
--- OUTSIDE RECORDS SUMMARY | ~2020-06-09 | XMS | Encounter Summary ---
Demographics + + + | Address | [address] | | | [place] [address] | + + + | Home Phone [...] Providers + +------+ + | Care Hand Flatwork Finisher Name | Role | Phone | + +------+ + | Lexx Estiven | PCP | | + +------+ + Reason for Visit + +--------+ + | Reason | Onset | Comments | | | Date | | + +--------+ + | Prior Authorization | 09/11/ | [employer] and HOME infusions approved | | Request | 2016 | | + +--------+ + Encounter Details +--------+ + + + + | Date | Type | Department | Care Team | Description | +--------+ + + + + | 09/11/ | Telephone | [facility] at [facility] 7[facility] | Shaina Barrett | Prior Authorization | | 2016 | | Floor [address] | Request ([employer] | | | | St Mailcode: [facility] | | and HOME infusions | | | | [facility] [place], [place] | | approved) | | | | [address] | | | | | | [phone] | | | +--------+ + + + [...] Telephone Encounter - Shaina Barrett FNP - 09/11/2016 10:33 AM PSTPrior authorization approved for [employer] 140 mg IV every 2 weeks [facility] [place] [facility] ([place] n RX approval) and Home Infusions approved through [facility] [place] Medicaid (Olga Lidia azevedo ot approval) PA Number: [id number] From 09/16/16 to 08/19/17. NICHOLE Sutton, MPH, COSTUMER ASSISTANT-BC Nurse Practitioner, Metabolic Clinic documented in th [...]
--- OUTSIDE RECORDS SUMMARY | ~2020-06-09 | XMS | Encounter Summary ---
Demographics + + + | Address | [address] | | | [place] [address] | + + + | Home Phone [...] Team Providers + +------+ + | Care Petroleum Production Engineer Name | Role | Phone | + +------+ + | Mikki Barajas MD | PCP | | + +------+ + Reason for Visit +--------+--------+ + | Reason | Onset | Comments | | | Date | | +--------+--------+ + | Other | 04/27/ | missed infusions | | | 2020 | | +--------+--------+ + Encounter Details +--------+ + + + + | Date | Type | Department | Care Team | Description | +--------+ + + + + | 04/27/ | Documentati | Metabolic Genetics | Deidre Nguyen MD | Other (missed | | 2020 | on | at [place] [facility] | [address] [facility] | infusions ) | | | | [address] | Naty Isaacs [place], | | | | | [place] | [place] [address] | | | | | [facility] | [phone] | | | | | 7th Floor [place], | | | | | | [place] [address] | | | | | | [phone] | | | +--------+ + + + [...] Notes Telephone Encounter - Xenia Herzog - 04/27/2020 4:12 PM PDTCaseworkers at [employer] notifi ed us that he has missed several infusions. Last infusion was March 15. Missed 03/29///. documented in this encount er Plan of [...]
--- OUTSIDE RECORDS SUMMARY | ~2020-06-09 | XMS | Encounter Summary ---
Demographics + + + | Address | [address] | | | [place] [address] | + + + | Home Phone [...] Team Providers + +------+ + | Care Project Construction Assistant Manager Name | Role | Phone | + +------+ + | Estiven Hallman | PCP | | + +------+ + Reason for Visit + +--------+ + | Reason | Onset | Comments | | | Date | | + +--------+ + | Medication | 08/05/ | Home infusions | | management | 2015 | | + +--------+ + Encounter Details +--------+ + + + + | Date | Type | Department | Care Team | Description | +--------+ + + + + | 08/05/ | Telephone | [facility] at [facility] 7th | Marcellus Rodriguez MD | Medication | | 2016 | | Floor [address] | [address] | management (Home | | | | St Mailcode: [facility] | [address] | infusions) | | | | [facility] [place] [place] | [place], [place] | | | | | [address] | [address] | | | | | [phone] | [phone] | | | | | | | [...] Notes Telephone Encounter - Xenia Herzog - 08/07/2016 1:27 PM Jaimee called back and said th jez have worked it out; Jarvis and her son will receive their ERT infusions at home. She needs us to do the PA for [facility] (Rx for the medication) this is an infusion cente r in [facility] from [facility] that will mix it up and provide it to the home care nurse s. They also need new PA's for home health RN's from [facility] (no NPI # [id number]) and this can be faxed direction to Marcelina at [phone]. I asked her if (since she is from the [facility]) they could use the CURRENT PA's on file as we just did the son's and Jarvis's isn't due until Oct. She said unfortunately, no, need all p aperwork to be redone and resubmitted. I told her I would discuss with Shaina when she retur ns next week and we will work on it. (I still am not sure if WE are doing the orders or jaymie eone locally). They are trying for a Russell start date. elephone Encounter - Xenia Herzog - 08/05/2016 3:35 PM Jaimee called back to say Jarvis is very interested in doing home infusions for her and EnochArmen Marcelina wanted to let us know they are moving forward with that. I asked her what [employer] said about that one for home infusions and she hasn't spoke with them yet. I told her to keep us posted. documented in this encount er Plan of [...]
--- OUTSIDE RECORDS SUMMARY | ~2020-06-09 | XMS | Encounter Summary ---
Demographics + + + | Address | [address] | | | [place] [address] | + + + | Home Phone [...] Team Providers + +------+ + | Care In Store Marketing Representative Name | Role | Phone | [...]
--- OUTSIDE RECORDS SUMMARY | ~2020-06-09 | XMS | Encounter Summary ---
Demographics + + + | Address | [address] | | | [place] [address] | + + + | Home Phone [...] Team Providers + +------+ + | Care Call Circuit Worker Name | Role | Phone | [...]
--- OUTSIDE RECORDS SUMMARY | ~2020-06-09 | XMS | Encounter Summary ---
Demographics + + + | Address | [address] | | | [place] [address] | + + + | Home Phone [...] Providers + +------+ + | Care Legal Compliance Officer Name | Role | Phone | + +------+ + | Lexx Estiven | PCP | | + +------+ + Encounter Details +--------+ + + + + | Date | Type | Department | Care Team | Description | +--------+ + + + + | 02/04/ | [employer] | Digestive Health | Kathleen Canchola, | | | 2017 | | Center at [facility] [address] | [facility] [address] | | | | | [address] | [address] [facility] [place] | | | | | for Health and | [address] | | | | | [facility], [address] | [phone] | | | | | [place], [place] | | | | | | [address] | | | | | | [phone] | | | +--------+ + + + [...]
--- OUTSIDE RECORDS SUMMARY | ~2020-06-09 | XMS | Encounter Summary ---
Demographics + + + | Address | [address] | | | [place] [address] | + + + | Home Phone [...] Team Providers + +------+ + | Care Quality Assurance Lead Name | Role | Phone | + +------+ + | Mikki Barajas MD | PCP | | + +------+ + Encounter Details +--------+ + + + + | Date | Type | Department | Care Team | Description | +--------+ + + + + | 01/22/ | Documentati | Digestive Health | Clinic, Surgery | | | 2018 | on | Center [place] [address] [address] | | | | | | [address] [facility] | | | | | | for Health and | | | | | | Healing, [address] | | | | | | [place], [place] | | | | | | [address] | | | | | | [phone] | | | +--------+ + + + [...]
--- OUTSIDE RECORDS SUMMARY | ~2020-06-09 | XMS | Encounter Summary ---
Demographics + + + | Address | [address] | | | [place] [address] | + + + | Home Phone [...] Providers + +------+ + | Care Medical Receptionist Name | Role | Phone | + +------+ + | Mikki Barajas MD | PCP | | + +------+ + Encounter Details +--------+ + + + + | Date | Type | Department | Care Team | Description | +--------+ + + + + | 05/16/ | MyChart | Preoperative | O Nicky Oconnor | ECHO results | | 2020 | Encounter | Medicine Clinic at | MD Shabbir [address] | | | | | [facility] | [facility] [address] | | | | | [address] | [place], [place] | | | | | [place] for [facility] | [address] | | | | | and Healing, | [phone] | | | | | [address] | | | | | | [place], [place] | | | | | | [address] | | | | | | [phone] | | | +--------+ + + + [...]
--- OUTSIDE RECORDS SUMMARY | ~2020-06-09 | XMS | Encounter Summary ---
Demographics + + + | Address | [address] | | | [place] [address] | + + + | Home Phone [...] Providers + +------+ + | Care Film And Video Editor Name | Role | Phone | + +------+ + | Estiven Hallman | PCP | | + +------+ + Reason for Visit + +--------+ + | Reason | Onset | Comments | | | Date | | + +--------+ + | Medication | 05/13/ | PA expiring in Nov | | management | 2015 | | + +--------+ + Encounter Details +--------+ + + + + | Date | Type | Department | Care Team | Description | +--------+ + + + + | 05/13/ | Telephone | [facility] at [facility] 7th | Shaina Barrett | Medication | | 2016 | | Floor [address] | management (PA | | | | St Mailcode: [facility] | | expiring in Jul) | | | | [facility] [place], [place] | | | | | | [address] | | | | | | [phone] | | | +--------+ + + + [...] Notes Telephone Encounter - Xenia Herzog - 05/13/2016 12:50 PM Jeanine called (mainly for son) but wanted me to let Shaina know her PA is expiring in Jul. I told her we cannot submit zuhair t now, it is too early. She said she just doesn't want to have a gap in care. I told her w e usually don't get PA's for outside facilities and they should be doing these. She said he r pcp's office said they don't know how to submit PA's so Shaina has been doing it as a favor to her. I told her I would let Shaina know. I will also let Shaina know the PA process for [facility] has changed and now has to do different PA's- one for CPT codes for infusion, and one for the J code for medication. documented in this encount er Plan of [...]
--- OUTSIDE RECORDS SUMMARY | ~2020-06-09 | XMS | Encounter Summary ---
Demographics + + + | Address | [address] | | | [place] [address] | + + + | Home Phone [...] Providers + +------+ + | Care Tax Collector Name | Role | Phone | + +------+ + | Mikki Barajas MD | PCP | | + +------+ + Encounter Details +--------+ + + + + | Date | Type | Department | Care Team | Description | +--------+ + + + + | 12/01/ | Telephone | Metabolic Genetics | Deidre Nguyen MD | | | 2020 | | at [facility] | [address] | | | | | [address] | Naty Isaacs [place], | | | | | [place] | [place] [address] | | | | | [facility] | [phone] | | | | | [address] [place] [address], | | | | | | [place] [address] | | | | | | [phone] | | | +--------+ + + + [...] this encounter Miscellaneous Notes Telephone Encounter - Natasha Dasilva - 12/02/2019 11:05 AM [facility]isa [facility] [place] called and stated the patient's orders are expiring. Any questions return call to [phone]. Fax orders to [phone].Electronically signed by Natasha fitzgerald 12/02/2019 11:07 AM PDTdocumented in this encounter Plan of [...]
--- OUTSIDE RECORDS SUMMARY | ~2020-06-09 | XMS | Encounter Summary ---
Demographics + + + | Address | [address] | | | [place] [address] | + + + | Home Phone [...] Team Providers + +------+ + | Care City Dispatcher Name | Role | Phone | [...] [id number] | | | | | | [place], [place] | | | | | | [address] | | | | | | [phone] | | | +--------+ + + + [...]
--- OUTSIDE RECORDS SUMMARY | ~2020-06-09 | XMS | Encounter Summary ---
Demographics + + + | Address | [address] | | | [place] [address] | + + + | Home Phone [...] Team Providers + +------+ + | Care Threat Analyst Name | Role | Phone | [...] | 2019 | Visit | Center at [facility] [address] | | to excess calories | | | | [address] | | ([facility]) (Primary Dx) | | | | for Health and | | | | | | Healing, [facility] [address] | | | | | | [place], [place] | | | | | | [address] | | | | | | [phone] | | | +--------+---------+ + + + [...] encounter Progress Notes Kathe Starks, RD - 07/01/2019 9:30 AM PDTFormatting of this note might be different fr om the original. Referring Provider: Estiven Hallman DO [facility], Pre-Bariatric Surgery Class Pre-Surgery Class #2 prior to having Nessa-En-Y gastric bypass surgery or Sleeve Gastrectomy . Documented Time of Class: 60 minutes [id number] with patient OBJECTIVE: Height: Ht Readings from [...] questi ons or sharing information. Kathe Starks, , RDN, CSOWM, LD, CDE [facility] Bariatrics [phone] documented in this e ncounter Plan of [...]
--- OUTSIDE RECORDS SUMMARY | ~2020-06-09 | XMS | Clinical Summary ---
Demographics + + + | Address | [address] | | | [place] [address] | + + + | Home Phone [...] | Author | [facility] | | | and [place] | + + + | Organization | [facility] | | | and [place] | + + + | Address | Unknown | + + + | Phone | Unavailable | + + + Support + + + + + | Name | Relationship | Address | Phone | + + + + + | Jordyn Sharmaves | ECON | NONE | + | | | | [place] [address] | | + + + + + | Jordyn Sharmaves | ECON | NONE | + | | | | [place] [address] | | + + + + + Care Team Providers + +------+ + | Care Editor Name | Role | Phone | [...] mg | mouth Daily. | | | 20 | | e | | tablet | | | | 17 | | | + + + +---------+------+------+-------+ | glipiZIDE | Take 1 tablet by | | 0 | 12/2 | | Activ | | (GLUCOTROL XL) 10 mg | mouth Daily. | | | 620 | | e | | ER tablet | | | | 16 | | | + + + +---------+------+------+-------+ | ondansetron | Take 1 tablet by | | 0 | 02/1 | | Activ | | (ZOFRAN) 4 mg tablet | mouth 3 times daily. | | | 820 | | e | | | | [...] on file | | + + + Last Filed Vital Signs Not on file Plan of Treatment + + +-------+ + | Health Maintenance | Due Date | Last | Comments | | | | Done | | + + +-------+ + | Vaccine: | | | | | Dtap/Tdap/Td (1 - | 8 | | | | Tdap) | | | | + + +-------+ + | Cervical Cancer | | | | | Screening (Pap) | 9 | | | + + +-------+ + | Vaccine: Influenza | | | | | (#1) | 0 | | | + + +-------+ + Results Not on filefrom Last 3 [...] +--------+ +---------+--------+ | MEDICARE | MEDICA | [id number] | 09/15/19 | [phone] | | Medica | | | RE | | 17-Pre | 5 | | re | | | PART A | | sent | | | | | | AND B | | | | | | + +--------+ +--------+ +---------+--------+ | [employer] | MODA | [id number] | | [phone] | | Medica | [...] | [birth year] | [address] | | Jenn | al/Fam | | 1980 | [phone] | [place] [address] | | | andrew | | | 7 (Home) | | + +--------+ +--------+ + + Advance Directives + + + + + | Type | Date Recorded | Patient | Explanation | | | | Heel Padder | | + + + + + | Power of | | | | | District Branch Manager | | | | + + + + + | Advance | 01/23/2018 10:29 | | [facility] | | Directive | AM | | | + + + + +"
[~2020-06-09 13:30] MED LIST changes: +ERYTHROMYCIN1 GM OD; +VALTREX500 MG PO
--- OUTSIDE RECORDS SUMMARY | 2020-06-09 13:34 | XMS ---
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 ENRIQUE Security Gas Load Dispatcher Events No recent Security Events currently on file CRITERIA MET - [facility] - Has Care Guidelines - PDMP CARE PROVIDERS MERLE SHARMA Internal Medicine 10/12/2018-Current PHONE: [phone] MADDIE TAVARES Internal Medicine: Pulmonary Disease 11/10/2019-Current PHONE: Unknown Guidelines [facility] Date: 11/10/2019 Care Coordination: Currently engaged in medication management services with [facility].\T\nbsp; Please contact [facility] with any mental health concerns.\T\nbsp;\T\nbsp; [place] Office:\T\nbsp; [phone] [facility] Crisis: [phone]. Care History Medical/Surgical 02/09/2020 [facility] Next apt with PCP is March. Have asked [place] to coordinate ED follow up appt. Patient does shave upcoming appt in Sleep Lab with Johanna Nobles. 11/10/2019 [facility] Patient has scheduled appointment with Dr. Barajas on 11/29/2019 10/12/2018 [facility] - - Patient is currently established with [facility]. If patient is seen in the ED during business hours. Please contact CHWs at [facility]. Care Recommendation: If this patient has had [...] providing care. E.D. VISIT COUNT (12 MO.) 3 [facility]. TOTAL 3 NOTE: Visits indicate total known visits. ED/UCC VISIT TRACKING (12 MO.) 06/09/2020 13:31 [facility] [place] TYPE: Emergency COMPLAINT: - LOW BLOOD SUGAR 02/07/2020 09:18 [facility] [place] TYPE: Emergency COMPLAINT: - EYE PAIN, VISION PROBLEM DIAGNOSES: - Allergy status to penicillin - Bipolar disorder, unspecified - Unspecified conjunctivitis - Type 2 diabetes mellitus without complications - Ocular pain, right eye - Essential (primary) hypertension - Allergy status to sulfonamides status - Allergy status to other drugs, medicaments and biological sub 11/09/2019 22:22 [facility] [place] TYPE: Emergency COMPLAINT: - MEDICATION ISSUE DIAGNOSES: - Essential (primary) hypertension - Adverse effect of other systemic antibiotics, initial encount - Type 2 diabetes mellitus without complications - Dental caries, unspecified - Other specified disorders of teeth and supporting structures - Bipolar disorder, unspecified - Vomiting, unspecified INPATIENT VISIT TRACKING (12 MO.) No inpatient visits to display in this time frame [email or web address]
[2020-06-09] MEDS ORDERED: BASAGLAR K100 UNIT/1 SQ (13:49)
[2020-06-09] MEDS ORDERED: METFORMIN HCL500 M1 PO (13:51)
== END 2020-06-09 15:24 | disposition home or self-care (01) ==
LOC: ED 13:30
DX: E11.649 Type 2 diabetes mellitus with hypoglycemia without coma (principal); F31.9 Bipolar disorder, unspecified; I10 Essential (primary) hypertension; E11.9 Type 2 diabetes mellitus without complications; Z88.8 Allergy status to other drugs, medicaments and biological substances; Z88.2 Allergy status to sulfonamides; Z88.0 Allergy status to penicillin; Z79.899 Other long term (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; Z79.4 Long term (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 of insulin
CPT/HCPCS: 80053; 81001; 85025; 96374; 99284-25; J2405

== ENCOUNTER 2020-08-28 16:05 | Emergency (ER) | payer MEDICARE, OTHER ==
[~2020-08-28] VITALS: Ht 157.5 cm; Wt 153.9 kg
[~2020-08-28 16:05] MED LIST changes: +BASAGLAR K100 UNIT/1 SQ
--- OUTSIDE RECORDS SUMMARY | 2020-08-28 16:08 | XMS ---
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 ENRIQUE Security Vocational Rehabilitation Administrator Events No recent Security Events currently on file CRITERIA MET - [facility] - Has Care Guidelines - PDMP CARE PROVIDERS MERLE SHARMA Internal Medicine 10/12/2018-Current PHONE: [phone] MADDIE TAVARES Internal Medicine: Pulmonary Disease 11/10/2019-Current PHONE: Unknown Guidelines [facility]: [facility] Guidelines Date: 11/10/2019 Care Coordination: Currently engaged in medication management services with Re[facility].\T\nbsp; Please contact Receptor with any mental health concerns.\T\nbsp;\T\nbsp; [place] Office:\T\nbsp; [phone] [facility] Crisis: . Care History Medical/Surgical 02/09/2020 [facility] Next apt with PCP is March. Have asked ID to coordinate ED follow up appt. Patient does shave upcoming appt in Sleep Lab with Johanna Nobles. 11/10/2019 [facility] Patient has scheduled appointment with Dr. Barajas on 11/29/2019 10/12/2018 [facility] - - Patient is currently established with [facility]. If patient is seen in the ED during business hours. Please contact CHWs at [facility]. Care Recommendation: If this patient has had [...] providing care. E.D. VISIT COUNT (12 MO.) 4 [facility] TOTAL 4 NOTE: Visits indicate total known visits. ED/UCC VISIT TRACKING (12 MO.) 08/28/2020 16:06 [facility] [place] TYPE: Emergency COMPLAINT: - FALL, VOMITING AND SHARP PAIN ON L SIDE 06/09/2020 13:31 [facility] [place] TYPE: Emergency COMPLAINT: - LOW BLOOD SUGAR DIAGNOSES: - Allergy status to other drugs, medicaments and biological substances - Essential (primary) hypertension - Type 2 diabetes mellitus with hypoglycemia without coma - Type 2 diabetes mellitus with hypoglycemia without coma - Other telephone information clerk (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 - Bipolar disorder, unspecified - Type 2 diabetes mellitus without complications - Allergy status to sulfonamides - power 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 [place] TYPE: Emergency COMPLAINT: - MEDICATION ISSUE DIAGNOSES: - Essential (primary) hypertension - Adverse effect of other systemic antibiotics, initial encounter - Type 2 diabetes mellitus without complications - Dental caries, unspecified - Other specified disorders of teeth and supporting structures - Bipolar disorder, unspecified - Vomiting, unspecified INPATIENT VISIT TRACKING (12 MO.) 07/26/2020 08:13 [facility] TYPE: Weight Management DIAGNOSES: 36647. MORBID OBESITY 75464. Morbid (severe) obesity due to excess calories [email or web address]
[2020-08-28] MEDS ORDERED: NORCO 7.5-3251 EACH PO (19:21)
[2020-08-28] MEDS ORDERED: PROMETHAZINE HC25 M1 PO (19:21)
== END 2020-08-28 19:40 | disposition home or self-care (01) ==
LOC: ED 16:05
DX: S30.1XXA Contusion of abdominal wall, initial encounter (principal); Z98.890 Other specified postprocedural states; I10 Essential (primary) hypertension; E11.9 Type 2 diabetes mellitus without complications; Z88.8 Allergy status to other drugs, medicaments and biological substances; Z88.2 Allergy status to sulfonamides; Z88.0 Allergy status to penicillin; Z79.899 Other long term (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
CPT/HCPCS: 74177; 80053; 83690; 85025; 99284-25; J1170; J2405; J2550; J7030; Q9967

== ENCOUNTER 2020-10-09 20:45 | Emergency (ER) | payer MEDICARE, OTHER ==
[~2020-10-09] VITALS: Ht 157.5 cm; Wt 140.8 kg
[~2020-10-09 20:45] MED LIST changes: +NORCO 7.5-3251 EACH PO
--- OUTSIDE RECORDS SUMMARY | 2020-10-09 20:48 | XMS ---
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 ENRIQUE Security Dish Carrier Events No recent Security Events currently on file CRITERIA MET - [facility] - Has Care Guidelines - PDMP CARE PROVIDERS MERLE SHARMA Internal Medicine 10/12/2018-Current PHONE: [phone] MADDIE TAVARES Internal Medicine: Pulmonary Disease 11/10/2019-Current PHONE: Unknown Guidelines [facility]: [facility] Guidelines Date: 11/10/2019 Care Coordination: Currently engaged in medication management services with [email or web address].\T\nbsp; Please contact [email or web address] with any mental health concerns.\T\nbsp;\T\nbsp; [place] Office:\T\nbsp; [phone] [email or web address] Crisis: . Care History Medical/Surgical 02/09/2020 [facility] Next apt with PCP is March. Have asked PR to coordinate ED follow up appt. Patient does shave upcoming appt in Sleep Lab with Johanna Nobles. 11/10/2019 [facility] Patient has scheduled appointment with Dr. Barajas on 11/29/2019 10/12/2018 [facility] - - Patient is currently established with [facility]. If patient is seen in the ED during business hours. Please contact CHWs at [facility]. Care Recommendation: If this patient has [...] providing care. E.D. VISIT COUNT (12 MO.) 5 [facility] [place] [facility] TOTAL 5 NOTE: Visits indicate total known visits. ED/UCC VISIT TRACKING (12 MO.) 10/09/2020 20:46 [facility] [place] TYPE: Emergency COMPLAINT: - NAUSEA 08/28/2020 16:06 [facility] [place] TYPE: Emergency COMPLAINT: - FALL, VOMITING AND SHARP PAIN ON L SIDE DIAGNOSES: - Allergy status to sulfonamides - Allergy status to penicillin - Type 2 diabetes mellitus without complications - Other exterminator helper termite (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 - Contusion of abdominal wall, initial encounter - Essential (primary) hypertension - Other specified postprocedural states - Allergy status to other drugs, medicaments and biological substances - Left upper quadrant pain 06/09/2020 13:31 [facility] [place] TYPE: Emergency COMPLAINT: - LOW BLOOD SUGAR DIAGNOSES: - Allergy status to other drugs, medicaments and biological substances - Essential (primary) hypertension - Type 2 diabetes mellitus with hypoglycemia without coma - Type 2 diabetes mellitus with hypoglycemia without coma - Other residential (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 - Bipolar disorder, unspecified - Type 2 diabetes mellitus without complications - Allergy status to sulfonamides - retirement (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 of insulin - Allergy status [...] drugs, medicaments and biological substances 11/09/2019 22:22 [facility] TYPE: Emergency COMPLAINT: - MEDICATION ISSUE DIAGNOSES: - Essential (primary) hypertension - Adverse effect of other systemic antibiotics, initial encounter - Type 2 diabetes mellitus without complications - Dental caries, unspecified - Other specified disorders of teeth and supporting structures - Bipolar disorder, unspecified - Vomiting, unspecified INPATIENT VISIT TRACKING (12 MO.) 07/26/2020 08:13 [facility] TYPE: Weight Management DIAGNOSES: 02834. MORBID OBESITY 21500. Morbid (severe) obesity due to excess calories [email or web address]
== END 2020-10-09 23:58 | disposition home or self-care (01) ==
LOC: ED 20:45
DX: G43.909 Migraine, unspecified, not intractable, without status migrainosus (principal); I10 Essential (primary) hypertension; E11.9 Type 2 diabetes mellitus without complications; Z88.8 Allergy status to other drugs, medicaments and biological substances; Z88.0 Allergy status to penicillin; Z88.2 Allergy status to sulfonamides; Z79.899 Other long term (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
CPT/HCPCS: 80053; 85025; 96374; 96375; 99284-25; J1200; J1790; J1885; J2765; J7030

== ENCOUNTER 2021-03-22 20:14 | Emergency (ER) | payer MEDICARE, OTHER ==
[~2021-03-22] VITALS: Ht 157.5 cm; Wt 133.0 kg
--- OUTSIDE RECORDS SUMMARY | 2021-03-22 20:16 | XMS ---
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 ENRIQUE Security Customer Service Sales Associate Events No recent Security Events currently on file CRITERIA MET - [facility] - Has Care Guidelines - PDMP CARE PROVIDERS MERLE SHARMA Internal Medicine 10/12/2018-Current PHONE: [phone] MADDIE TAVARES Internal Medicine: Pulmonary Disease 11/10/2019-Current PHONE: Unknown Guidelines Source: [facility] Guidelines Date: 11/10/2019 Care Coordination: Currently engaged in medication management services with [employer].\T\nbsp; Please contact [employer] with any mental health concerns.\T\nbsp;\T\nbsp; [place] Office:\T\nbsp; [phone] [employer] Crisis: . Care History Medical/Surgical 10/10/2020 [facility] Patient seen for migraine with n/v.\T\nbsp; Patient was seen 10/05/2020 by PCP, Dr. Barajas. 02/09/2020 [facility] Next apt with PCP is March. Have asked MA to coordinate ED follow up appt. Patient does shave upcoming appt in Sleep Lab with Johanna Nobles. 11/10/2019 [facility] Patient has scheduled appointment with Dr. Barajas on 11/29/2019 [place] VISIT COUNT (12 MO.) 4 [facility] [place] TOTAL 4 NOTE: Visits indicate total known visits. ED/UCC VISIT TRACKING (12 MO.) [facility]22[facility]2021 [facility] [place] [facility] COMPLAINT: - POSS ALLERGIC REACTION 10/09/2020 20:46 [facility] [place] TYPE: Emergency COMPLAINT: - COLD SYMPTOMS DIAGNOSES: - Migraine, unspecified, not intractable, without status migrainosus - Essential (primary) hypertension - Allergy status to penicillin - Other rat exterminator (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 - Allergy status to sulfonamides - Type 2 diabetes mellitus without complications - Allergy status to other drugs, medicaments and biological substances - Headache, unspecified 08/28/2020 16:06 [facility] [place] TYPE: Emergency COMPLAINT: - FALL, VOMITING AND SHARP PAIN ON L SIDE DIAGNOSES: - Allergy status to sulfonamides - Allergy status to penicillin - Type 2 diabetes mellitus without complications - Other rat exterminator (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 - Allergy status to sulfonamides - Allergy status to other drugs, medicaments and biological substances - Contusion of abdominal wall, initial encounter [...] mellitus with hypoglycemia without coma - Other rat exterminator (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 - Bipolar disorder, unspecified - Type 2 diabetes mellitus without complications - Allergy status to sulfonamides - terminal clerk (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 of insulin - Allergy status to penicillin INPATIENT VISIT TRACKING (12 MO.) 07/26/2020 08:13 [facility] TYPE: Weight Management DIAGNOSES: 40610. MORBID OBESITY 62401. Morbid (severe) obesity due to excess calories [email or web address]
[2021-03-22] MEDS ORDERED: LATUDA80 MG PO (23:29)
[2021-03-22] MEDS ORDERED: ONDANSETRON ODT8 MG PO (23:29)
[2021-03-22] MEDS ORDERED: SUMATRIPTAN SUC50 MG PO (23:30)
[2021-03-22] MEDS ORDERED: FLUTICASONE PRO16 GM NAS (23:30)
[2021-03-22] MEDS ORDERED: MINIPRESS2 MG PO (23:30)
[2021-03-22] MEDS ORDERED: OMEPRAZOLE20 MG PO (23:30)
[2021-03-22] MEDS ORDERED: MECLIZINE HCL25 MG PO (23:30)
[2021-03-22] MEDS ORDERED: PREGABALIN75 MG PO (23:31)
[2021-03-22] MEDS ORDERED: METFORMIN HCL500 M1 PO (23:31)
[2021-03-23] MEDS ORDERED: HYDROXYZINE HCL25 MG PO (02:42)
[2021-05-07] MEDS ORDERED: REGLAN10 MG PO (19:02)
[2021-05-07] MEDS ORDERED: LEVOFLOXACIN500 MG PO (19:02)
== END 2021-03-23 02:55 | disposition home or self-care (01) ==
LOC: ED 20:14
DX: L50.9 Urticaria, unspecified (principal); R11.2 Nausea with vomiting, unspecified; I10 Essential (primary) hypertension; E11.9 Type 2 diabetes mellitus without complications; Z88.2 Allergy status to sulfonamides; Z88.0 Allergy status to penicillin; Z88.8 Allergy status to other drugs, medicaments and biological substances; Z79.899 Other long term (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
CPT/HCPCS: 80053; 81001; 83690; 85025; 85610; 85730; 96374; 99284-25; J2405; J7030

== ENCOUNTER 2021-04-26 11:58 | Emergency (ER) | payer MEDICARE, OTHER ==
[~2021-04-26] VITALS: Ht 157.5 cm; Wt 127.9 kg
[~2021-04-26 11:58] MED LIST changes: +FLUTICASONE PRO16 GM NAS; +HYDROXYZINE HCL25 MG PO; +LATUDA80 MG PO; +MECLIZINE HCL25 MG PO; +MINIPRESS2 MG PO; +OMEPRAZOLE20 MG PO; +ONDANSETRON ODT8 MG PO; +PREGABALIN75 MG PO; +SUMATRIPTAN SUC50 MG PO
--- OUTSIDE RECORDS SUMMARY | 2021-04-26 12:06 | XMS ---
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 ENRIQUE Security Chain Saw Operator Events No recent Security Events currently on file CRITERIA MET - [facility] - Has Care Guidelines CARE PROVIDERS MERLE SHARMA Internal Medicine 10/12/2018-Current PHONE: [phone] MADDIE TAVARES Internal Medicine: Pulmonary Disease 11/10/2019-Current PHONE: Unknown Guidelines Source: [facility] Guidelines Date: 11/10/2019 Care Coordination: Currently engaged in medication management services with [employer].\T\nbsp; Please contact [employer] with any mental health concerns.\T\nbsp;\T\nbsp; [place] Office:\T\nbsp; [phone] [employer] Crisis: . Care History Medical/Surgical 10/10/2020 [facility] Patient seen for migraine with n/v.\T\nbsp; Patient was seen 10/05/2020 by PCP, Dr. Barajas. 02/09/2020 [facility] Next apt with PCP is March. Have asked MA to coordinate ED follow up appt. Patient does shave upcoming appt in Sleep Lab with Johanna Nobles. 11/10/2019 [facility] Patient has scheduled appointment with Dr. Barajas on 11/29/2019 [place] VIS[facility] (12 MO.) 5 [facility] NOTE: Visits indicate total known visits. ED/C VISIT TRACKING (12 MO.) 04/26/2021 11:59 [facility] [place] [facility] COMPLAINT: - HEADACHE, NAUSEA, DIZZY, SEEING SPOTS, FAINT 03/22/2021 20:[address] [facility] [place] TYPE: Emergency COMPLAINT: - POSS ALLERGIC REACTION DIAGNOSES: - Nausea with vomiting, unspecified - Allergy status to other drugs, medicaments and biological substances - Urticaria, unspecified - Essential (primary) hypertension - Allergy status to penicillin - Allergy status to sulfonamides - Other half-way (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 - Type 2 diabetes mellitus without complications 10/09/2020 20:[address] [facility] [place] TYPE: Emergency COMPLAINT: - COLD SYMPTOMS DIAGNOSES: - Migraine, unspecified, not intractable, without status migrainosus - Essential (primary) hypertension - Allergy status to penicillin - Other half-way (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 - Allergy status to sulfonamides - Type 2 diabetes mellitus without complications - Allergy status to other drugs, medicaments and biological substances - Headache, unspecified 08/28/2020 16:[address] [facility] [place] [facility] [place] TYPE: Emergency COMPLAINT: - FALL, VOMITING AND SHARP PAIN ON L SIDE DIAGNOSES: - Allergy status to sulfonamides - Allergy status to penicillin - Type 2 diabetes mellitus without complications - Other half-way (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 - Allergy status to sulfonamides - Allergy status to other drugs, medicaments and biological substances - Contusion of abdominal wall, initial encounter - Essential (primary) hypertension - Other specified postprocedural states - Allergy status to other drugs, medicaments and biological substances - Left upper quadrant pain 06/09/2020 13:31 [facility] TYPE: Emergency COMPLAINT: - LOW BLOOD SUGAR DIAGNOSES: - Allergy status to other drugs, medicaments and biological substances - Essential (primary) hypertension - Type 2 diabetes mellitus with hypoglycemia without coma - Type 2 diabetes mellitus with hypoglycemia without coma - 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 MORBID OBESITY 21309. Morbid (severe) obesity due to excess calories [email or web address]
[2021-04-26] MEDS ORDERED: PREGABALIN150 MG PO (14:05)
[2021-04-26] MEDS ORDERED: ONDANSETRON HCL4 MG PO (14:06)
[2021-05-07] MEDS ORDERED: LEVOFLOXACIN500 MG PO (19:02)
[2021-05-07] MEDS ORDERED: REGLAN10 MG PO (19:02)
== END 2021-04-26 17:05 | disposition home or self-care (01) ==
LOC: ED 11:58
DX: R42 Dizziness and giddiness (principal); I10 Essential (primary) hypertension; E11.9 Type 2 diabetes mellitus without complications; Z88.8 Allergy status to other drugs, medicaments and biological substances; Z88.2 Allergy status to sulfonamides; Z88.0 Allergy status to penicillin; Z79.899 Other long term (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; Z79.84 Long term (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 of oral hypoglycemic drugs
CPT/HCPCS: 70450; 99284-25

== ENCOUNTER 2021-05-20 16:26 | Emergency (ER) | payer MEDICARE, OTHER ==
[~2021-05-20] VITALS: Ht 157.5 cm; Wt 128.1 kg
[~2021-05-20 16:26] MED LIST changes: +LEVOFLOXACIN500 MG PO; +ONDANSETRON HCL4 MG PO; +PREGABALIN150 MG PO; +REGLAN10 MG PO
--- OUTSIDE RECORDS SUMMARY | 2021-05-20 16:30 | XMS ---
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 ENRIQUE Security Fx Artist Events No recent Security Events currently on file CRITERIA MET - PDMP - [facility] - 2 Visits in 30 Days - [facility] - Has Care Guidelines CARE PROVIDERS MERLE SHARMA Internal Medicine 10/12/2018-Current PHONE: [phone] MADDIE TAVARES Internal Medicine: Pulmonary Disease 11/10/2019-Current PHONE: Unknown Care Guidelines exist for the following facilities: [facility] ( 11/10/2019 ) Care History Medical/Surgical 10/10/[address] [facility] Patient seen for migraine with n/v.\T\nbsp; Patient was seen 10/05/2020 by PCP, Dr. Barajas. 02/09/2020 [facility] Next apt with PCP is March. Have asked MA to coordinate ED follow up appt. Patient does shave upcoming appt in Sleep Lab with Johanna Nobles. 11/10/2019 [facility] Patient has scheduled appointment with Dr. Barajas on 11/29/2019 [place] VISIT COUNT (12 MO.) [facility] 7 NOTE: Visits indicate total known visits. ED/UCC VISIT TRACKING (12 MO.) 05/20/2021 16:[facility] [place] [facility] COMPLAINT: - L LEG PAIN AND SWELLING 05/07/2021 11:[address] [facility] [address] [facility] [place] TYPE: Emergency COMPLAINT: - DIZZY, N/V, FEVER, CHILLS DIAGNOSES: - Pneumonia, unspecified organism - Other long term acute care registered nurse (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 - Essential (primary) hypertension - terminal supervisor (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 of oral hypoglycemic drugs - Allergy status to other drugs, medicaments and biological substances - Allergy status to sulfonamides - Type 2 diabetes mellitus without complications - Allergy status to penicillin - Dizziness and giddiness 04/26/2021 11:[address] [facility] [address] [facility] [place] TYPE: Emergency COMPLAINT: - HEADACHE, NAUSEA, DIZZY, SEEING SPOTS, FAINT DIAGNOSES: - Headache, unspecified - Other assisted (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 - Allergy status to other drugs, medicaments and biological substances - Allergy status to penicillin - prison (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 of oral hypoglycemic drugs - Essential (primary) hypertension - Allergy status to sulfonamides - Dizziness and giddiness - Type 2 diabetes mellitus without complications 03/22/2021 20:[address] [facility] [address] [facility] [place] TYPE: Emergency COMPLAINT: - POSS ALLERGIC REACTION DIAGNOSES: - Nausea with vomiting, unspecified - Allergy status to other drugs, medicaments and biological substances - Urticaria, unspecified - Essential (primary) hypertension - Allergy status to penicillin - Allergy status to sulfonamides - Other long term acute care registered nurse (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 - Type 2 diabetes mellitus without complications 10/09/2020 20:46 [facility] [place] TYPE: Emergency COMPLAINT: - COLD SYMPTOMS DIAGNOSES: - Migraine, unspecified, not intractable, without status migrainosus - Essential (primary) hypertension - Allergy status to penicillin - Other long term acute care registered nurse (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 - Allergy status to [...] 2 diabetes mellitus without complications - Other long term acute care registered nurse (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 - Allergy status to [...] mellitus with hypoglycemia without coma - Other long term acute care registered nurse (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 - Bipolar disorder, unspecified - Type 2 diabetes mellitus without complications - Allergy status to sulfonamides - terminal supervisor (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 of insulin - Allergy status to penicillin INPATIENT VISIT TRACKING (12 MO.) 07/26/2020 08:13 [facility] TYPE: Weight Management DIAGNOSES: 65085. MORBID OBESITY 41115. Morbid (severe) obesity due to excess calories [email or web address]
[2021-05-20] MEDS ORDERED: ZOLPIDEM TARTRA10 MG PO (17:39)
[2021-05-20] MEDS ORDERED: VALACYCLOVIR500 MG PO (17:40)
[2021-05-20] MEDS ORDERED: HYDROCODON-ACE1 EA10 PO (18:57)
== END 2021-05-20 19:58 | disposition home or self-care (01) ==
LOC: ED 16:26
DX: S82.832A Other fracture of upper and lower end of left fibula, initial encounter for closed fracture (principal); Z88.2 Allergy status to sulfonamides; Z88.0 Allergy status to penicillin; Z88.1 Allergy status to other antibiotic agents; Z88.8 Allergy status to other drugs, medicaments and biological substances; I10 Essential (primary) hypertension; E11.9 Type 2 diabetes mellitus without complications; Z79.899 Other long term (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; Z79.84 Long term (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 of oral hypoglycemic drugs; W10.9XXA Fall (on) (from) unspecified stairs and steps, initial encounter
CPT/HCPCS: 73560; 73590; 73610; 73630; 99283-25

== ENCOUNTER 2021-06-06 10:24 | Emergency (ER) | payer MEDICARE, OTHER ==
[~2021-06-06] VITALS: Ht 157.5 cm; Wt 128.1 kg
[~2021-06-06 10:24] MED LIST changes: +HYDROCODON-ACE1 EA10 PO; +VALACYCLOVIR500 MG PO; +ZOLPIDEM TARTRA10 MG PO
--- OUTSIDE RECORDS SUMMARY | 2021-06-06 10:28 | XMS ---
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 ENRIQUE Security Fiberglass Product Tester Events No recent Security Events currently on file CRITERIA MET - [facility] - Has Care Guidelines - PDMP - [facility] - 2 Visits in 30 Days CARE PROVIDERS MERLE SHARMA Internal Medicine 10/12/2018-Current PHONE: [phone] MADDIE TAVARES Internal Medicine: Pulmonary Disease 11/10/2019-Current PHONE: Unknown Care Guidelines exist for the following facilities: [facility] ( 11/10/2019 ) Care History Medical/Surgical 10/10/2020 [facility] Patient seen for migraine with n/v.\T\nbsp; [...] on 11/29/2019 [place] VISIT COUNT (12 MO.) [address] [address] NOTE: Visits indicate total known visits. ED/UCC VISIT TRACKING (12 MO.) 06/06/2021 10:25 [facility] [place] Britany Leyon [place] TYPE: Emergency COMPLAINT: - L LEG PAIN, LOW O2 SATS 05/20/2021 16:28 GLORIA Watkins [place] TYPE: Emergency COMPLAINT: - L LEG PAIN AND SWELLING DIAGNOSES: - Allergy status to sulfonamides - Allergy status to penicillin - box sealing machine catcher (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 of oral hypoglycemic drugs - Allergy status to other antibiotic agents - Unspecified injury of left lower leg, initial encounter - Other fracture of left lower leg, initial encounter for closed fracture - Other fracture of upper and lower end of left fibula, initial encounter for closed fracture - Essential (primary) hypertension - Type 2 diabetes mellitus without complications - Fall (on) (from) unspecified stairs and steps, initial encounter - Allergy status to other drugs, medicaments and biological substances - Other director of dementia operations (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 05/07/2021 11:49 GLORIA Watkins [place] TYPE: Emergency COMPLAINT: - DIZZY, N/V, FEVER, CHILLS DIAGNOSES: - Pneumonia, unspecified organism - Other nursing home (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 - Essential (primary) hypertension - box sealing machine catcher (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 of oral hypoglycemic drugs - Allergy status to other drugs, medicaments and biological substances - Allergy status to sulfonamides - Type 2 diabetes mellitus without complications - Allergy status to penicillin - Dizziness and giddiness 04/26/2021 11:59 [facility] Britany Barrett [place] TYPE: Emergency COMPLAINT: - HEADACHE, NAUSEA, DIZZY, SEEING SPOTS, FAINT DIAGNOSES: - Headache, unspecified - Other nursing home (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 - Allergy status to other drugs, medicaments and biological substances - Allergy status to penicillin - [facility] (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 of oral hypoglycemic drugs - Essential (primary) hypertension - Allergy status to sulfonamides - Dizziness and giddiness - Type 2 diabetes mellitus without complications 03/22/2021 20:15 [facility] Emergency COMPLAINT: - POSS ALLERGIC REACTION DIAGNOSES: - Nausea with vomiting, unspecified - Allergy status to other drugs, medicaments and biological substances - Urticaria, unspecified - Essential (primary) hypertension - Allergy status to penicillin - Allergy status to sulfonamides - Other director of dementia operations (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 - Type 2 diabetes mellitus without complications 10/09/2020 20:46 [facility]: Emergency COMPLAINT: - COLD SYMPTOMS DIAGNOSES: - Migraine, unspecified, not intractable, without status migrainosus - Essential (primary) hypertension - Allergy status to penicillin - Other director of dementia operations (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 - Allergy status to [...] 2 diabetes mellitus without complications - Other nursing home (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 - Allergy status to [...] mellitus with hypoglycemia without coma - Other nursing home (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 - Bipolar disorder, unspecified - Type 2 diabetes mellitus without complications - Allergy status to sulfonamides - box sealing machine catcher (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 of insulin - Allergy status to penicillin INPATIENT VISIT TRACKING (12 MO.) 07/26/2020 08:13 [facility] TYPE: Weight Management DIAGNOSES: 52897. MORBID OBESITY [id number]. Morbid (severe) obesity due to excess calories [email or web address]
[2021-06-06] MEDS ORDERED: VOLTAREN ARTHRI20 GM TOP (10:50)
[2021-06-06] MEDS ORDERED: REGLAN10 MG PO (14:31)
== END 2021-06-06 14:45 | disposition home or self-care (01) ==
LOC: ED 10:24
DX: U07.1 COVID-19 (principal); M25.572 Pain in left ankle and joints of left foot; R11.2 Nausea with vomiting, unspecified; I10 Essential (primary) hypertension; E11.9 Type 2 diabetes mellitus without complications; E75.21 Fabry (-Anderson) disease; Z88.2 Allergy status to sulfonamides; Z88.8 Allergy status to other drugs, medicaments and biological substances; Z88.0 Allergy status to penicillin; Z79.899 Other long term (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; Z79.84 Long term (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 of oral hypoglycemic drugs
CPT/HCPCS: 71045; 93971; 96374; 96375; 99285-25; J1885; J2405; J2765; J7030; M0243; Q0244

== ENCOUNTER 2021-09-16 12:49 | Emergency (ER) | payer MEDICARE, OTHER ==
[~2021-09-16] VITALS: Ht 157.5 cm; Wt 128.1 kg
[~2021-09-16 12:49] MED LIST changes: +VOLTAREN ARTHRI20 GM TOP
--- OUTSIDE RECORDS SUMMARY | 2021-09-16 12:52 | XMS ---
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 Barajas. 02/09/2020 [facility] Next apt with PCP is March. Have asked MA to coordinate ED follow up appt. Patient does shave upcoming appt in Sleep Lab with Johanna Nobles. 11/10/2019 [facility] Patient has scheduled appointment with Dr. Barajas on 11/29/2019 [place] [facility] MO[facility] NOTE: Visits indicate total known visits. 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 - Allergy status to other drugs, medicaments and biological substances - termite inspector (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 of oral hypoglycemic drugs - Pain in left leg - Fabry (-Carroll) disease - Allergy status to sulfonamides - Nausea with vomiting, unspecified - Type 2 diabetes mellitus without complications - Essential (primary) hypertension 05/20/2021 16:28 GLORIA Watkins [place] TYPE: Emergency COMPLAINT: - L LEG PAIN AND SWELLING DIAGNOSES: - Allergy status to sulfonamides - Allergy status to penicillin - [facility] [...] drugs, medicaments and biological substances - 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 05/07/2021 11:49 GLORIA Watkins [place] TYPE: Emergency COMPLAINT: - DIZZY, N/V, FEVER, CHILLS DIAGNOSES: - Pneumonia, unspecified organism - Other snf (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 - Essential (primary) hypertension - [facility] (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 of oral hypoglycemic drugs - Allergy status to other drugs, medicaments and biological substances - Allergy status to sulfonamides - Type 2 diabetes mellitus without complications - Allergy status to penicillin - Dizziness and giddiness 04/26/2021 11:59 GLORIA Watkins [place] TYPE: Emergency COMPLAINT: - HEADACHE, NAUSEA, DIZZY, SEEING SPOTS, FAINT DIAGNOSES: - Headache, unspecified - 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 - Allergy status to other drugs, medicaments and biological substances - Allergy status to penicillin - termite inspector (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 of oral hypoglycemic drugs - Essential (primary) hypertension - Allergy status to sulfonamides - Dizziness and giddiness - Type 2 diabetes mellitus without complications 03/22/2021 20:15 GLORIA Watkins [place] TYPE: Emergency COMPLAINT: - POSS ALLERGIC REACTION DIAGNOSES: - Nausea with vomiting, unspecified - Allergy status to other drugs, medicaments and biological substances - Urticaria, unspecified - Essential (primary) hypertension - Allergy status to penicillin - Allergy status to sulfonamides - Other snf (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 - Type 2 diabetes mellitus without complications 10/09/2020 20:[address] [facility] [place] TYPE: Emergency COMPLAINT: - COLD SYMPTOMS DIAGNOSES: - Migraine, unspecified, not intractable, without status migrainosus - Essential (primary) hypertension - Allergy status to penicillin - Other snf (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 - Allergy status to sulfonamides - Type 2 diabetes mellitus without complications - Allergy status to other drugs, medicaments and biological substances - Headache, unspecified INPATIENT VISIT TRACKING (12 MO.) No inpatient visits to display in this time frame [email or web address]
[2021-09-16] MEDS ORDERED: AMITRIPTYLINE100 MG PO (15:10)
[2021-09-16] MEDS ORDERED: LORAZEPAM0.5 MG PO (15:11)
[2021-09-16] MEDS ORDERED: FLUVOXAMINE MA100 MG PO (15:12)
[2021-09-16] MEDS ORDERED: HYDROCODON-ACE1 EA11 PO (17:51)
== END 2021-09-16 18:05 | disposition home or self-care (01) ==
LOC: ED 12:49
DX: M79.602 Pain in left arm (principal); E75.21 Fabry (-Anderson) disease; I10 Essential (primary) hypertension; E11.9 Type 2 diabetes mellitus without complications; Z88.8 Allergy status to other drugs, medicaments and biological substances; Z88.2 Allergy status to sulfonamides; Z88.1 Allergy status to other antibiotic agents; Z88.0 Allergy status to penicillin; Z79.899 Other long term (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; Z79.84 Long term (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 of oral hypoglycemic drugs
CPT/HCPCS: 80048; 85025; 93971; 96374; 96375; 99284-25; A9270; J2405; J2550; J7030

== ENCOUNTER 2021-09-19 22:02 | Emergency (ER) | payer MEDICARE, OTHER ==
[~2021-09-19] VITALS: Ht 157.5 cm; Wt 127.0 kg
[~2021-09-19 22:02] MED LIST changes: +AMITRIPTYLINE100 MG PO; +FLUVOXAMINE MA100 MG PO; +HYDROCODON-ACE1 EA11 PO; +LORAZEPAM0.5 MG PO
--- OUTSIDE RECORDS SUMMARY | 2021-09-19 22:06 | XMS ---
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 ( 11/10/2019 ) Care History Medical/Surgical 09/18/2021 [facility] This patient has been discharged from [facility] due to non-compliance, discontent and repeated cancelling of scheduled appointments, effective 2020 with 30 days for "urgent conditions only". 10/10/2020 [facility] Patient seen for migraine with n/v.\\T\\nbsp; Patient was seen 10/05/2020 by PCP, Dr. Barajas. 02/09/2020 [facility] Next apt with PCP is March. Have asked MS to coordinate ED follow up appt. Patient does shave upcoming appt in Sleep Lab with Johanna Duque E.D. VISIT COUNT (12 MO.) 8 [facility]. TOTAL 8 NOTE: Visits indicate total known visits. ED/UCC VISIT TRACKING (12 MO.) 09/19/2021 22:03 [facility] [place] TYPE: Emergency COMPLAINT: - VOMITING, LEFT SIDE PAIN 09/16/2021 12:[address] [facility] [address] 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 [facility] [place] TYPE: Emergency COMPLAINT: - L LEG PAIN, LOW O2 SATS DIAGNOSES: - COVID-19 - Allergy status to penicillin - Pain in left ankle and joints of left foot - Other fpc (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 - Allergy status to other drugs, medicaments and biological substances - custodial (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 of oral hypoglycemic drugs - Pain in left leg - Fabry (-Carroll) disease - Allergy status to sulfonamides - Nausea with vomiting, unspecified - Type 2 diabetes mellitus without complications - Essential (primary) hypertension 05/20/2021 16:28 GLORIA Watkins [place] TYPE: Emergency COMPLAINT: - L LEG PAIN AND SWELLING DIAGNOSES: - Allergy status to sulfonamides - Allergy status to penicillin - custodial (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 of oral hypoglycemic drugs - [...] drugs, medicaments and biological substances - Other fpc (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 05/07/2021 11:49 GLORIA Watkins [place] TYPE: Emergency COMPLAINT: - DIZZY, N/V, FEVER, CHILLS DIAGNOSES: - Pneumonia, unspecified organism - Other fpc (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 - Essential (primary) hypertension - exterminator (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 of oral hypoglycemic 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 - Allergy status to other drugs, medicaments and biological substances - Allergy status to sulfonamides - Type 2 diabetes mellitus without complications - Allergy status to penicillin - Dizziness and giddiness 04/26/2021 11:59 GLORIA Watkins [place] TYPE: Emergency COMPLAINT: - HEADACHE, NAUSEA, DIZZY, SEEING SPOTS, FAINT DIAGNOSES: - Headache, unspecified - Other fpc (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 - Allergy status to other drugs, medicaments and biological substances - Allergy status to penicillin - exterminator (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 of oral hypoglycemic drugs - Essential (primary) hypertension - Allergy status to sulfonamides - Dizziness and giddiness - Type 2 diabetes mellitus without complications 03/22/2021 20:[address] [facility] [address] 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 - Type 2 diabetes mellitus without complications 10/09/2020 20:46 GLORIA Watkins [place] TYPE: Emergency COMPLAINT: - COLD SYMPTOMS DIAGNOSES: - Migraine, unspecified, not intractable, without status migrainosus - Essential (primary) hypertension - Allergy status to penicillin - Other oysterman (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
== END 2021-09-20 01:47 | disposition home or self-care (01) ==
LOC: ED 22:02
DX: R10.12 Left upper quadrant pain (principal); I10 Essential (primary) hypertension; E11.9 Type 2 diabetes mellitus without complications; Z88.8 Allergy status to other drugs, medicaments and biological substances; Z88.2 Allergy status to sulfonamides; Z88.1 Allergy status to other antibiotic agents; Z88.0 Allergy status to penicillin; Z79.899 Other long term (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
CPT/HCPCS: 74177; 80053; 81001; 83690; 84703; 85025; 99284-25; Q9967

== ENCOUNTER 2022-02-03 19:55 | Emergency (ER) | payer MEDICARE, OTHER ==
[~2022-02-03] VITALS: Ht 160 cm; Wt 130.0 kg
--- OUTSIDE RECORDS SUMMARY | 2022-02-03 19:58 | XMS ---
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 ENRIQUE Security Legal Biller Events 1 event(s) in the past 18 months Most recent security events: Elopement at [facility] 11/15/2021 15:07 Details: PATIENT LWBS CRITERIA MET - [facility] - Has Care Guidelines - PDMP CARE PROVIDERS MERLE SHARMA Internal Medicine 10/12/2018-Current PHONE: Unknown [facility] 09/25/2021-Current PHONE: Unknown Care Guidelines exist for the following facilities: [facility] ( 11/10/2019 ) Care History Medical/Surgical 09/18/2021 [facility] This patient has been discharged from [facility] due to non-compliance, discontent and repeated cancelling of scheduled appointments, effective 2020 with 30 days for "urgent conditions only". 10/10/2020 [facility] Patient seen for migraine with n/v.\\T\\nbsp; Patient was seen 10/05/2020 by PCP, Dr. Barajas. 02/09/2020 [facility] Next apt with PCP is March. Have asked MA to coordinate ED follow up appt. Patient does shave upcoming appt in Sleep Lab with Johanna Duque E.D. [facility] TOTAL 10 NOTE: Visits indicate total known visits. ED/UCC VISIT TRACKING (12 MO.) 02/03/2022 19:[address] [facility] [address] [facility] Barrett [place] TYPE: Emergency COMPLAINT: - HAND SWELLING/SHOULDER PAIN 11/15/2021 15:[address] [facility] [address] [facility] Barrett [place] TYPE: Emergency COMPLAINT: - FLANK/ABD PAIN 09[facility]23[facility]2021 [facility] DIAGNOSES: - Dehydration - Unspecified abdominal pain - abd pain, nausea, vomitting - Abdominal Pain - Vomiting, unspecified 09/19/2021 22:[address] [facility] [address] 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 (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 - Allergy status to other drugs, medicaments and biological substances - Allergy status to penicillin - Allergy status to sulfonamides - Type 2 diabetes mellitus without complications - long term care phlebotomist (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 of oral hypoglycemic drugs - Essential (primary) hypertension - Fabry (-Carroll) disease - Pain in left arm 06/06/2021 10:25 GLORIA Watkins [place] TYPE: Emergency COMPLAINT: - L LEG PAIN, LOW O2 SATS DIAGNOSES: - COVID-19 - Allergy status to penicillin - Pain in left ankle and joints of left foot - 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 (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 - Allergy status to other drugs, medicaments and biological substances - long term care phlebotomist (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 of oral hypoglycemic drugs - Pain in left leg - Fabry (-Carroll) disease - Allergy status to sulfonamides - Nausea with vomiting, unspecified - Type 2 diabetes mellitus without complications - Essential (primary) hypertension 05/20/2021 16:28 GLORIA Watkins [place] TYPE: Emergency COMPLAINT: - L LEG PAIN AND SWELLING DIAGNOSES: - Allergy status to sulfonamides - Allergy status to penicillin - long term care phlebotomist (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 of oral hypoglycemic drugs - [...] drugs, medicaments and biological substances - Other retirement (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 05/07/2021 11:49 GLORIA Watkins [place] TYPE: Emergency COMPLAINT: - DIZZY, N/V, FEVER, CHILLS DIAGNOSES: - Pneumonia, unspecified organism - Other retirement (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 - Essential (primary) hypertension - long term care phlebotomist (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 of oral hypoglycemic drugs - Allergy status to other drugs, medicaments and biological substances - Allergy status to sulfonamides - Type 2 diabetes mellitus without complications - Allergy status to penicillin - Dizziness and giddiness 04/26/2021 11:59 GLORIA Watkins [place] TYPE: Emergency COMPLAINT: - HEADACHE, NAUSEA, DIZZY, SEEING SPOTS, FAINT DIAGNOSES: - Headache, unspecified - 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 [facility] [place] TYPE: Emergency COMPLAINT: - POSS ALLERGIC REACTION DIAGNOSES: - Nausea with vomiting, unspecified - Allergy status to other drugs, medicaments and biological substances - Urticaria, unspecified - Essential (primary) hypertension - Allergy status to penicillin - Allergy status to sulfonamides - Other retirement (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 - Type 2 diabetes mellitus without complications INPATIENT VISIT TRACKING (12 MO.) No inpatient visits to display in this time frame [email or web address]
[2022-02-03] MEDS ORDERED: METRONIDAZOLE500 MG PO (21:10)
[2022-02-03] MEDS ORDERED: NYAMYC15 GM TOP (21:10)
[2022-02-03] MEDS ORDERED: PRAZOSIN HCL2 MG PO (21:11)
[2022-02-03] MEDS ORDERED: FLUTICASONE PRO16 GM NAS (21:11)
[2022-02-03] MEDS ORDERED: LATUDA120 MG PO (21:11)
== END 2022-02-03 21:58 | disposition home or self-care (01) ==
LOC: ED 19:55
DX: M06.9 Rheumatoid arthritis, unspecified (principal); I10 Essential (primary) hypertension; E11.9 Type 2 diabetes mellitus without complications; F32.A Depression, unspecified; Z88.1 Allergy status to other antibiotic agents; Z88.0 Allergy status to penicillin; Z88.2 Allergy status to sulfonamides; Z88.8 Allergy status to other drugs, medicaments and biological substances; Z79.899 Other long term (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
CPT/HCPCS: 99283

== ENCOUNTER 2022-02-05 16:21 | Emergency (ER) | payer MEDICARE, OTHER ==
[~2022-02-05] VITALS: Ht 160 cm; Wt 130.5 kg
[~2022-02-05 16:21] MED LIST changes: +METRONIDAZOLE500 MG PO; +NYAMYC15 GM TOP; +PRAZOSIN HCL2 MG PO
--- OUTSIDE RECORDS SUMMARY | 2022-02-05 16:25 | XMS ---
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 1 event(s) in the past 18 months Most recent security events: Elopement at [facility] 11/15/2021 15:07 Details: PATIENT LWBS CRITERIA MET - 6 ED Visits in 6 Months - [facility] - 2 Visits in 30 Days - PDMP - [facility] - Has Care Guidelines CARE PROVIDERS MERLE SHARMA Internal Medicine 10/12/2018-Current PHONE: Unknown [facility] 09/25/2021-Current PHONE: Unknown Care Guidelines exist for the following facilities: [facility] ( 11/10/2019 ) Care History Medical/Surgical 09/18/2021 [facility] This patient has been discharged from [facility] due to non-compliance, discontent and repeated cancelling of scheduled appointments, effective 2020 with 30 days for "urgent conditions only". 10/10/2020 [facility] Patient seen for migraine with n/v.\\T\\nbsp; Patient was seen 10/05/2020 by PCP, Dr. Barajas. 02/09/2020 [facility] Next apt with PCP is March. Have asked MA to coordinate ED follow up appt. Patient does shave upcoming appt in Sleep Lab with Johanna Duque E.D. VISIT COUNT (12 MO.) 1 [facility] 10 [facility]. TOTAL 11 NOTE: Visits indicate total known visits. ED/UCC VISIT TRACKING (12 MO.) 02/05/2022 16:21 GL[place] TYPE: Emergency COMPLAINT: - HAND SWELLING 02/03/2022 19:56 GLORIA [place] TYPE: Emergency COMPLAINT: - HAND SWELLING/SHOULDER PAIN 11/15/2021 15:[address] [facility] [address] [facility] [place] TYPE: Emergency COMPLAINT: - FLANK/ABD PAIN 09/23/2021 09:58 [facility] Sheldon GUTIERRES TYPE: Emergency DIAGNOSES: - Dehydration - Unspecified abdominal pain - abd pain, nausea, vomitting - Abdominal Pain - Vomiting, unspecified 09/19/2021 22:03 [place] TYPE: Emergency COMPLAINT: - VOMITING, LEFT SIDE PAIN DIAGNOSES: - Essential (primary) hypertension - Allergy status to other antibiotic agents - Allergy status to other drugs, medicaments and biological substances - Type 2 diabetes mellitus without complications - Allergy status to penicillin - Left upper quadrant pain - Allergy status to sulfonamides - 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 radiation control specialist (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 09/16/2021 12:50 GLOR[place] TYPE: Emergency COMPLAINT: - L SIDE PAIN DIAGNOSES: - Allergy status to other antibiotic agents - Other radiation control specialist (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 - Allergy status to other drugs, medicaments and biological substances - Allergy status to penicillin - Allergy status to sulfonamides - Type 2 diabetes mellitus without complications - alf (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 of oral hypoglycemic drugs - Essential (primary) hypertension - Fabry (-Carroll) disease - Pain in left arm 06/06/2021 10:25 [place] TYPE: Emergency COMPLAINT: - L LEG PAIN, LOW O2 SATS DIAGNOSES: - COVID-19 - Allergy status to penicillin - Pain in left ankle and joints of left foot - Other correction (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 - Allergy status to other drugs, medicaments and biological substances - dx board operator (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 of oral hypoglycemic 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 - Pain in left leg - Fabry (-Carroll) disease - Allergy status to sulfonamides - Nausea with vomiting, unspecified - Type 2 diabetes mellitus without complications - Essential (primary) hypertension 05/20/2021 16:28 [place] TYPE: Emergency COMPLAINT: - L LEG PAIN AND SWELLING DIAGNOSES: - Allergy status to sulfonamides - Allergy status to penicillin - dx board operator (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 of oral hypoglycemic 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 - [...] drugs, medicaments and biological substances - Other radiation control specialist (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 05/07/2021 11:49 GLOR[place] TYPE: Emergency COMPLAINT: - DIZZY, N/V, FEVER, CHILLS DIAGNOSES: - Pneumonia, unspecified organism - Other correction (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 - Essential (primary) hypertension - alf (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 of oral hypoglycemic drugs - Allergy status to other drugs, medicaments and biological substances - Allergy status to sulfonamides - Type 2 diabetes mellitus without complications - Allergy status to penicillin - Dizziness and giddiness 04/26/2021 11:59 [place] TYPE: Emergency COMPLAINT: - HEADACHE, NAUSEA, DIZZY, SEEING SPOTS, FAINT DIAGNOSES: - Headache, unspecified - Other radiation control specialist (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 - Allergy status to other drugs, medicaments and biological substances - Allergy status to penicillin - dx board operator (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 of oral hypoglycemic drugs - [...] - Allergy status to sulfonamides - Other radiation control specialist (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 - Type 2 diabetes mellitus without complications INPATIENT VISIT TRACKING (12 MO.) No inpatient visits to display in this time frame [email or web address]
[2022-02-05] MEDS ORDERED: HYDROCODON-ACE1 EA10 PO (16:58)
[2022-02-05] MEDS ORDERED: PREDNISONE20 MG PO (16:58)
== END 2022-02-05 17:20 | disposition home or self-care (01) ==
LOC: ED 16:21
DX: M06.9 Rheumatoid arthritis, unspecified (principal); I10 Essential (primary) hypertension; E11.9 Type 2 diabetes mellitus without complications; Z88.8 Allergy status to other drugs, medicaments and biological substances; Z88.1 Allergy status to other antibiotic agents; Z88.2 Allergy status to sulfonamides; Z88.0 Allergy status to penicillin; Z79.899 Other long term (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; Z79.84 Long term (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 of oral hypoglycemic drugs
CPT/HCPCS: 99283

== ENCOUNTER 2022-02-23 10:23 | Emergency (ER) | payer OTHER, MEDICARE ==
[~2022-02-23] VITALS: Ht 160 cm; Wt 129.8 kg
--- OUTSIDE RECORDS SUMMARY | 2022-02-23 10:26 | XMS ---
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 ENRIQUE Security Clinical Haematologist Events 1 event(s) in the past 18 months Most recent security events: Elopement at [facility] 11/15/2021 15:07 Details: PATIENT LWBS CRITERIA MET - 6 ED Visits in 6 Months - [facility] - Has Care Guidelines - PDMP - [facility] - 2 Visits in 30 Days CARE PROVIDERS MERLE SHARMA Internal Medicine 10/12/2018-Current PHONE: Unknown [facility] 09/25/2021-Current PHONE: Unknown Care Guidelines exist for the following facilities: [facility] ( 11/10/2019 ) Care History Medical/Surgical 09/18/2021 [facility] This patient has been discharged from [facility] due to non-compliance, discontent and repeated cancelling of scheduled appointments, effective 2020 with 30 days for "urgent conditions only". 10/10/2020 [facility] Patient seen for migraine with n/v.\\T\\nbsp; Patient was seen 10/05/2020 by PCP, Dr. Barajas. 02/09/2020 [facility] Next apt with PCP is March. Have asked MA to coordinate ED follow up appt. Patient does shave upcoming appt in Sleep Lab with Johanna Duque E.D. VISIT COUNT (12 MO.) 1 [facility] 11 [facility]. TOTAL 12 NOTE: Visits indicate total known visits. ED/UCC VISIT TRACKING (12 MO.) 02/23/2022 10:24 [facility] [place] TYPE: Emergency COMPLAINT: - FALL,BULRRY VISION 02/05/2022 16:21 [facility] [place] TYPE: Emergency COMPLAINT: - HAND SWELLING DIAGNOSES: - Allergy status to other antibiotic agents - Type 2 diabetes mellitus without complications - retirement (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 of oral hypoglycemic drugs - Essential (primary) hypertension - Other retirement (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 - Allergy status to other drugs, medicaments and biological substances - Allergy status to sulfonamides - Rheumatoid arthritis, unspecified - Allergy status to penicillin 02/03/2022 19:56 [facility] [place] TYPE: Emergency COMPLAINT: - HAND SWELLING/SHOULDER PAIN DIAGNOSES: - Depression, unspecified - Allergy status to sulfonamides - Allergy status to penicillin - Allergy status to other drugs, medicaments and biological substances - Allergy status to other antibiotic agents - Essential (primary) hypertension - Other superintendent terminal (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 - Pain in left wrist - Rheumatoid arthritis, unspecified - Type 2 diabetes mellitus without complications 11/15/2021 15:07 [facility] [place] TYPE: Emergency COMPLAINT: - FLANK/ABD PAIN 09/23/2021 09:58 [facility] Sheldon GUTIERRES TYPE: Emergency DIAGNOSES: - [...] sulfonamides - Other retirement (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 09/16/2021 12:50 GL[facility] Perry TYPE: Emergency COMPLAINT: - L SIDE PAIN DIAGNOSES: - Allergy status to other antibiotic agents - Other retirement (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 - Allergy status to other drugs, medicaments and biological substances - Allergy status to penicillin - Allergy status to sulfonamides - Type 2 diabetes mellitus without complications - retirement (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 of oral hypoglycemic drugs - Essential (primary) hypertension - Fabry (-Carroll) disease - Pain in left arm 06/06/2021 10:25 [facility] [place] TYPE: Emergency COMPLAINT: - L LEG PAIN, LOW O2 SATS DIAGNOSES: - COVID-19 - Allergy status to penicillin - Pain in left ankle and joints of left foot - Other retirement (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 - Allergy status to other drugs, medicaments and biological substances - 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 - Pain in left leg - Fabry (-Carroll) disease - Allergy status to sulfonamides - Nausea with vomiting, unspecified - Type 2 diabetes mellitus without complications - Essential (primary) hypertension 05/20/2021 16:28 [facility] [place] TYPE: Emergency COMPLAINT: - L LEG PAIN AND SWELLING DIAGNOSES: - Allergy status to sulfonamides - Allergy status to penicillin - retirement (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 of oral hypoglycemic drugs - [...] drugs, medicaments and biological substances - Other superintendent terminal (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 05/07/2021 11:49 [facility] [place] TYPE: Emergency COMPLAINT: - DIZZY, N/V, FEVER, CHILLS DIAGNOSES: - Pneumonia, unspecified organism - Other retirement (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 - Essential (primary) hypertension - 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 - Allergy status to other drugs, medicaments and biological substances - Allergy status to sulfonamides - Type 2 diabetes mellitus without complications - Allergy status to penicillin - Dizziness and giddiness 04/26/2021 11:59 [facility] [place] TYPE: Emergency COMPLAINT: - HEADACHE, NAUSEA, DIZZY, SEEING SPOTS, FAINT DIAGNOSES: - Headache, unspecified - Other superintendent terminal (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 - Allergy status to other drugs, medicaments and biological substances - Allergy status to penicillin - retirement (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 of oral hypoglycemic drugs - [...] visits to display in this time frame [id number]
[2022-02-23] MEDS ORDERED: REGLAN10 MG PO (15:08)
[2022-02-23] MEDS ORDERED: CYCLOBENZAPRINE10 MG PO (15:08)
== END 2022-02-23 15:15 | disposition home or self-care (01) ==
LOC: ED 10:23
DX: S06.0X0A Concussion without loss of consciousness, initial encounter (principal); M54.2 Cervicalgia; M25.461 Effusion, right knee; I10 Essential (primary) hypertension; E11.9 Type 2 diabetes mellitus without complications; M06.9 Rheumatoid arthritis, unspecified; Z79.899 Other long term (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; Z88.1 Allergy status to other antibiotic agents; Z88.2 Allergy status to sulfonamides; Z88.8 Allergy status to other drugs, medicaments and biological substances; Z79.4 Long term (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 of insulin; W10.9XXA Fall (on) (from) unspecified stairs and steps, initial encounter; Y92.9 Unspecified place or not applicable
CPT/HCPCS: 36415; 70450; 72125; 80048; 85025; A9270; J2765; J7030

== ENCOUNTER 2022-05-27 19:28 | Emergency (ER) | payer MEDICARE, OTHER ==
[~2022-05-27] VITALS: Ht 160 cm; Wt 130.0 kg
[~2022-05-27 19:28] MED LIST changes: +CYCLOBENZAPRINE10 MG PO
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
[2022-05-27] MEDS ORDERED: VOLTAREN ARTHRI20 GM TOP (20:50)
== END 2022-05-27 21:05 | disposition home or self-care (01) ==
LOC: ED 19:28
DX: S60.211A Contusion of right wrist, initial encounter (principal); W01.198A Fall on same level from slipping, tripping and stumbling with subsequent striking against other object, initial encounter; I10 Essential (primary) hypertension; E11.9 Type 2 diabetes mellitus without complications; M06.9 Rheumatoid arthritis, unspecified; Z88.8 Allergy status to other drugs, medicaments and biological substances; Z88.1 Allergy status to other antibiotic agents; Z88.2 Allergy status to sulfonamides; Z79.899 Other long term (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; Z79.84 Long term (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 of oral hypoglycemic drugs
CPT/HCPCS: 73110; 99283-25

== ENCOUNTER 2022-08-26 15:45 | Emergency (ER) | payer OTHER, MEDICARE ==
[~2022-08-26] VITALS: Ht 160 cm; Wt 130.0 kg
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
== END 2022-08-26 21:51 | disposition home or self-care (01) ==
LOC: ED 15:45
DX: T14.8XXA Other injury of unspecified body region, initial encounter (principal); I10 Essential (primary) hypertension; E11.9 Type 2 diabetes mellitus without complications; W18.09XA Striking against other object with subsequent fall, initial encounter; Z88.8 Allergy status to other drugs, medicaments and biological substances; Z88.2 Allergy status to sulfonamides; Z79.899 Other long term (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; Z79.4 Long term (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 of insulin
CPT/HCPCS: 70450; 72070; 72100; 72125; A9270; J2405; J7030

== ENCOUNTER 2022-11-10 10:35 | Emergency (ER) | payer MEDICARE, OTHER ==
[~2022-11-10] VITALS: Ht 160 cm; Wt 126.5 kg
[~2022-11-10 10:35] MED LIST changes: +ANTIFUNGAL113 GM TOP; +CARAFATE1 GM PO; +PROTONIX40 MG PO; +TEGRETOL XR100 MG PO
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
[2022-11-10] MEDS ORDERED: CLINDAMYCIN HC300 MG PO (12:06)
[2022-11-10] MEDS ORDERED: FUROSEMIDE40 MG PO (12:08)
== END 2022-11-10 13:37 | disposition home or self-care (01) ==
LOC: ED 10:35
DX: S93.402A Sprain of unspecified ligament of left ankle, initial encounter (principal); S83.92XA Sprain of unspecified site of left knee, initial encounter; S90.32XA Contusion of left foot, initial encounter; W19.XXXA Unspecified fall, initial encounter; I10 Essential (primary) hypertension; E11.9 Type 2 diabetes mellitus without complications; M06.9 Rheumatoid arthritis, unspecified; Z88.8 Allergy status to other drugs, medicaments and biological substances; Z88.1 Allergy status to other antibiotic agents; Z88.2 Allergy status to sulfonamides; Z88.0 Allergy status to penicillin; Z79.899 Other long term (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; Z79.84 Long term (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 of oral hypoglycemic drugs
CPT/HCPCS: 72170; 73560; 73610; 84703; 99283-25

== ENCOUNTER 2022-12-08 09:23 | Emergency (ER) | payer OTHER, MEDICARE ==
[~2022-12-08] VITALS: Ht 160 cm; Wt 127.9 kg
[~2022-12-08 09:23] MED LIST changes: +FUROSEMIDE40 MG PO
--- OUTSIDE RECORDS SUMMARY | 2022-12-08 09:24 | XMS ---
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 ENRIQUE Security Insulation Cutter And Former Events 1 event(s) in the past 18 months Most recent security events: Elopement at [facility] 11/15/2021 15:07 Details: PATIENT LWBS CRITERIA MET - PDMP - [facility] - 2 Visits in 30 Days - [facility] - Has Care Guidelines CARE PROVIDERS -, Nena- Dentist: Quill Picking Machine Operator [facility] PHONE: [phone] MERLE SHARMA Internal Medicine 10/12/2018-Current PHONE: [facility]Current PHONE: Unknown Care Guidelines exist for the following facilities: [facility] [place], [facility] ( 11/10/2019 ) Care History Medical/Surgical 09/18/2021 [facility] This patient has been discharged from [facility] due to non-compliance, discontent and repeated cancelling of scheduled appointments, effective 2020 with 30 days for "urgent conditions only". 10/10/2020 [facility] Patient seen for migraine with n/v.\\T\\nbsp; Patient was seen 10/05/2020 by PCP, Dr. Barajas. 02/09/2020 [facility] Next apt with PCP is March. Have asked MA to coordinate ED follow up appt. Patient does shave upcoming appt in Sleep Lab with Johanna Duque E.D. VISIT COUNT (12 MO.) 10 [facility]. TOTAL 10 NOTE: Visits indicate total known visits. 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 - Essential (primary) hypertension - Contusion of left foot, initial encounter - Other filler leaf cutter long (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 - Allergy status to penicillin - Allergy status to other drugs, medicaments and biological substances - Pain in left foot - Type 2 diabetes mellitus without complications - Allergy status to sulfonamides - Rheumatoid arthritis, unspecified - Allergy status to other antibiotic agents - Sprain of unspecified ligament of left ankle, initial encounter 09/23/2022 18:31 [facility] [place] TYPE: Emergency COMPLAINT: - BLOOD IN STOOL DIAGNOSES: - Essential (primary) hypertension - Fibromyalgia - Allergy status to sulfonamides - Type 2 diabetes mellitus without complications - Contact with and (suspected) exposure to COVID-19 - Allergy status to other drugs, medicaments and biological substances - Hemorrhage of anus and rectum - Allergy status to penicillin - Other filler leaf cutter long (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 - Hematemesis - intermediate (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 of oral hypoglycemic drugs - Gastro-esophageal laceration-hemorrhage syndrome - Gastritis, unspecified, with bleeding - Rheumatoid arthritis, unspecified 09/20/2022 22:15 [facility] [place] TYPE: Emergency COMPLAINT: - OXYGEN AT 79, FEELS LIKE SHE IS DROWNING DIAGNOSES: - Allergy status to sulfonamides - Erythema intertrigo - Weakness - Other viral agents as the cause of diseases classified elsewhere - Allergy status to penicillin - Essential (primary) hypertension - Fibromyalgia - Other fdc (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 - 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 - Respiratory disorder, unspecified - Contact with and (suspected) exposure to COVID-19 - Type 2 diabetes mellitus without complications - Allergy status to other drugs, medicaments and biological substances 08/26/2022 15:46 [facility] [place] TYPE: Emergency COMPLAINT: - FALL,POSS HEAD INJURY DIAGNOSES: - intermediate (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 of insulin - Allergy status to other drugs, medicaments and biological substances - Other injury of unspecified body region, initial encounter - Dizziness and giddiness - Type 2 diabetes mellitus without complications - Essential (primary) hypertension - Other fdc (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 - Allergy status to sulfonamides - Striking against other object with subsequent fall, initial encounter 05/27/2022 19:29 [facility] [place] TYPE: Emergency COMPLAINT: - RT WRIST INJURY DIAGNOSES: - Other fdc (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 - Type 2 diabetes mellitus without complications - 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 - [...] - Allergy status to sulfonamides 04/24/2022 15:52 [facility] [place] TYPE: Emergency [...] bite of left forearm, initial encounter - intermediate (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 of oral hypoglycemic drugs - Other fdc (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 02/23/2022 10:24 [facility] [place] TYPE: Emergency COMPLAINT: - FALL,BULRRY VISION DIAGNOSES: - Effusion, right knee - Cervicalgia - intermediate (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 of insulin - Allergy status to sulfonamides - Unspecified place or not applicable - Allergy status to other antibiotic agents - Rheumatoid arthritis, unspecified - Concussion without loss of consciousness, initial encounter - Other fdc (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 - Allergy status to [...] - Allergy status to sulfonamides - Other filler leaf cutter long (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 - 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 - Allergy status to other antibiotic agents - Rheumatoid arthritis, unspecified 02/03/2022 19:56 [facility] [place] TYPE: Emergency COMPLAINT: - HAND SWELLING/SHOULDER PAIN DIAGNOSES: - Essential (primary) hypertension - Allergy status to other drugs, medicaments and biological substances - Allergy status to sulfonamides - Rheumatoid arthritis, unspecified - Other fdc (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 - Allergy status to other antibiotic agents - Allergy status to penicillin - Type 2 diabetes mellitus without complications - Depression, unspecified - Pain in left wrist INPATIENT VISIT TRACKING (12 MO.) No inpatient visits to display in this time frame [email or web address]
[2022-12-08] MEDS ORDERED: HYDROCODON-ACE1 EA11 PO (11:43)
[2022-12-08] MEDS ORDERED: ONDANSETRON ODT8 MG PO (11:43)
[2022-12-08] MEDS ORDERED: PREDNISONE20 MG PO (14:28)
[2022-12-08] MEDS ORDERED: ZITHROMAX250 MG PO (14:28)
[2022-12-08] MEDS ORDERED: ALBUTEROL2.5 MG/3 M INH (14:28)
== END 2022-12-08 14:37 | disposition home or self-care (01) ==
LOC: ED 09:23
DX: S33.5XXA Sprain of ligaments of lumbar spine, initial encounter (principal); W01.198A Fall on same level from slipping, tripping and stumbling with subsequent striking against other object, initial encounter; K29.00 Acute gastritis without bleeding; J18.9 Pneumonia, unspecified organism; Z20.822 Contact with and (suspected) exposure to COVID-19; I10 Essential (primary) hypertension; E11.9 Type 2 diabetes mellitus without complications; Z88.2 Allergy status to sulfonamides; Z88.1 Allergy status to other antibiotic agents; Z88.0 Allergy status to penicillin; Z88.8 Allergy status to other drugs, medicaments and biological substances; Z79.899 Other long term (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
CPT/HCPCS: 36415; 71045; 72100; 80048; 83880; 85025; 87502; 94640; C9113; C9803; J0696; J1170; J2405; J2765; J7030; J7512; U0003

== ENCOUNTER 2022-12-21 08:40 | Emergency (ER) | payer MEDICARE, OTHER ==
[~2022-12-21] VITALS: Ht 160 cm; Wt 128.4 kg
[~2022-12-21 08:40] MED LIST changes: +ALBUTEROL2.5 MG/3 M INH; +ZITHROMAX250 MG PO
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
[2022-12-21] MEDS ORDERED: ONDANSETRON ODT8 MG PO (11:55)
== END 2022-12-21 12:10 | disposition home or self-care (01) ==
LOC: ED 08:40
DX: S93.402A Sprain of unspecified ligament of left ankle, initial encounter (principal); W01.0XXA Fall on same level from slipping, tripping and stumbling without subsequent striking against object, initial encounter; K29.71 Gastritis, unspecified, with bleeding; I10 Essential (primary) hypertension; E11.9 Type 2 diabetes mellitus without complications; Z88.0 Allergy status to penicillin; Z88.8 Allergy status to other drugs, medicaments and biological substances; Z88.2 Allergy status to sulfonamides; Z88.1 Allergy status to other antibiotic agents; Z79.899 Other long term (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; Z79.84 Long term (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 of oral hypoglycemic drugs
CPT/HCPCS: 36415; 71046; 73590; 73630; 85025; 99284-25; A9270

== ENCOUNTER 2023-02-24 18:48 | Emergency (ER) | payer OTHER, MEDICARE ==
[~2023-02-24] VITALS: Ht 160 cm; Wt 124.3 kg
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
[2023-02-24] MEDS ORDERED: CLEOCIN HCL300 MG PO (21:51)
[2023-02-24 22:10] VITALS: BP 141/97
== END 2023-02-24 22:10 | disposition home or self-care (01) ==
LOC: ED 18:48
DX: S61.421A Laceration with foreign body of right hand, initial encounter (principal); I10 Essential (primary) hypertension; W54.0XXA Bitten by dog, initial encounter; E11.9 Type 2 diabetes mellitus without complications; Z88.2 Allergy status to sulfonamides; Z88.0 Allergy status to penicillin; Z88.8 Allergy status to other drugs, medicaments and biological substances; Z79.84 Long term (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 of oral hypoglycemic drugs; Z79.899 Other long term (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
CPT/HCPCS: 73130; 90715; A9270

== ENCOUNTER 2023-04-16 16:41 | Emergency (ER) | payer MEDICARE, OTHER ==
[~2023-04-16] VITALS: Ht 7.6 cm; Wt 124.8 kg
--- OUTSIDE RECORDS SUMMARY | ~2023-04-16 | XMS | Continuity of Care Document ---
Demographics + + + | Address | [address] | | | [place] [address] | + + + | Preferred Language | Unknown | + + + | Marital Status | | + + + | Restorationist Affiliation | Unknown | + + + | Race | White | + + + | Ethnic Group | Not or | + + + Author + + + | Author | [facility] | + + + | Organization | [facility] | + + + | Address | [address] | | | [place] [address] | + + + | Phone | | + + + Care Team Providers + + + + | Care Church Administrator Name | Role | Phone | + + + + Unavailable | Unavailable | + + + + Unavailable | Unavailable | + + + + Unavailable | Unavailable | + + + + Unavailable | Unavailable | + + + + Unavailable | Unavailable | + + + + Unavailable | Unavailable | + + + + Unavailable | Unavailable | + + + + Allergies and Intolerances + + + + + + | date | description | facility | reaction | severity | + + + + + + | (no date) | Doxycycline | [facility] | (no reaction) | (no severity) | | | [facility] | | | + + + + + + | (no date) | Gabapentin | [facility] | (no reaction) | (no severity) | | | [facility] | | | + + + + + + | (no date) | Augmentin | [facility] | (no reaction) | (no severity) | | | | [facility] | | | + + + + + + | (no date) | Gabapentin | [facility] | (no reaction) | (no severity) | | | [facility] | | | + + + + + + | (no date) | gabapentin | [facility] | (no reaction) | (no severity) | | | [facility] | | | + + + + + + | (no date) | Mild | [facility] | (no reaction) | (no severity) | | | [facility] | | | + + + + + + | (no date) | Divalproex | [facility] | (no reaction) | (no severity) | | | sodium | [facility] | | | + + + + + + | (no date) | divalproex | [facility] | (no reaction) | (no severity) | | | sodium | [facility] | | | + + + + + + | (no date) | Rash | [facility] | (no reaction) | (no severity) | | | [facility] | | | + + + + + + | (no date) | Skin Rashes / | [facility] | (no reaction) | (no severity) | | | Eruption of | [facility]. | | | | | skin | | | | + + + + + + | (no date) | Doxycycline | [facility] | (no reaction) | (no severity) | | | | [facility] | | | + + + + + + | (no date) | doxycycline | [facility] | (no reaction) | (no severity) | | | [facility] | | | + + + + + + | (no date) | Penicillin v | [facility] | (no reaction) | (no severity) | | | [facility] | | | + + + + + + | (no date) | Augmentin | [facility] | (no reaction) | (no severity) | | | 250-125 MG Oral | [facility] | | | | | Tablet | | | | + + + + + + | (no date) | Divalproex | [facility] | (no reaction) | (no severity) | | | sodium | [facility] | | | + + + + + + | (no date) | Divalproex | [facility] | (no reaction) | (no severity) | | | sodium | [facility] | | | + + + + + + | (no date) | Gabapentin | [facility] | (no reaction) | (no severity) | | | [facility] | | | + + + + + + | (no date) | Penicillin v | [facility] | (no reaction) | (no severity) | | | | [facility] | | | + + + + + + | (no date) | Doxycycline | [facility] | (no reaction) | (no severity) | | | 100 mg Oral | [facility] | | | | | Tablet | | | | + + + + + + | (no date) | Doxycycline | [facility] | (no reaction) | (no severity) | | | | [facility] | | | + + + + + + | (no date) | Penicillin v | [facility] | (no reaction) | (no severity) | | | | [facility] | | | + + + + + + Encounters No information. Functional Status No information. Immunizations + + + + | date | description | facility | + + + + | 2023-02-24 00:00 | Tdap | [facility] | + + + + | 2023-02-24 00:00 | Tdap | [facility] | + + + + Medications + + + + | date | description | facility | + + + + | 2022-05-01 00:00 | CETIRIZINE HCL | [facility] | + + + + | 2022-05-27 00:00 | CETIRIZINE HCL | [facility] | + + + + | 2022-08-26 00:00 | CETIRIZINE HCL | [facility] | + + + + | 2022-09-21 00:00 | CETIRIZINE HCL | [facility] | + + + + | 2022-09-23 00:00 | CETIRIZINE HCL | [facility] | + + + + | 2022-11-10 00:00 | CETIRIZINE HCL | [facility] | + + + + | 2022-12-08 00:00 | CETIRIZINE HCL | [facility] | + + + + | 2022-12-21 00:00 | CETIRIZINE HCL | [facility] | + + + + | 2023-02-18 00:00 | CETIRIZINE HCL | [facility] | + + + + | 2023-02-24 00:00 | CETIRIZINE HCL | [facility] | + + + + | 2023-02-28 00:00 | CETIRIZINE HCL | [facility] | + + + + | 2022-05-01 00:00 | LURASIDONE HCL | [facility] | + + + + | 2022-05-27 00:00 | LURASIDONE HCL | [facility] | + + + + | 2022-08-26 00:00 | LURASIDONE HCL | [facility] | + + + + | 2022-09-21 00:00 | LURASIDONE HCL | [facility] | + + + + | 2022-09-23 00:00 | LURASIDONE HCL | [facility] | + + + + | 2022-11-10 00:00 | LURASIDONE HCL | [facility] | + + + + | 2022-12-08 00:00 | LURASIDONE HCL | [facility] | + + + + | 2022-12-21 00:00 | LURASIDONE HCL | [facility] | + + + + | 2023-02-18 00:00 | LURASIDONE HCL | [facility] | + + + + | 2023-02-24 00:00 | LURASIDONE HCL | [facility] | + + + + | 2023-02-28 00:00 | LURASIDONE HCL | [facility] | + + + + | 2022-05-01 00:00 | ONDANSETRON HCL | [facility] | + + + + | 2022-05-27 00:00 | ONDANSETRON HCL | [facility] | + + + + | 2022-08-26 00:00 | ONDANSETRON HCL | [facility] | + + + + | 2022-09-21 00:00 | ONDANSETRON HCL | [facility] | + + + + | 2022-09-23 00:00 | ONDANSETRON HCL | [facility] | + + + + | 2022-11-10 00:00 | ONDANSETRON HCL | [facility] | + + + + | 2022-12-08 00:00 | ONDANSETRON HCL | [facility] | + + + + | 2022-12-21 00:00 | ONDANSETRON HCL | [facility] | + + + + | 2023-02-18 00:00 | ONDANSETRON HCL | [facility] | + + + + | 2023-02-24 00:00 | ONDANSETRON HCL | [facility] | + + + + | 2023-02-28 00:00 | ONDANSETRON HCL | [facility] | + + + + | 2020-02-07 00:00 | VALACYCLOVIR HCL | [facility] | + + + + | 2020-02-07 00:00 | VALACYCLOVIR HCL | [facility] | + + + + | 2020-02-07 00:00 | VALACYCLOVIR HCL | [facility] | + + + + | 2020-02-07 00:00 | VALACYCLOVIR HCL | [facility] | + + + + | 2020-02-07 00:00 | VALACYCLOVIR HCL | [facility] | + + + + | 2020-02-07 00:00 | VALACYCLOVIR HCL | [facility] | + + + + | 2022-09-11 00:00 | Amitriptyline HCl 100 MG | [facility] | | | Oral Tablet | | + + + + | 2022-09-11 00:00 | LORazepam 1 MG Oral Tablet | [facility] | | | | | + + + + | 2022-05-01 00:00 | POTASSIUM GLUCONATE | [facility] | + + + + | 2022-05-27 00:00 | POTASSIUM GLUCONATE | [facility] | + + + + | 2022-08-26 00:00 | POTASSIUM GLUCONATE | [facility] | + + + + | 2022-09-21 00:00 | POTASSIUM GLUCONATE | [facility] | + + + + | 2022-09-23 00:00 | POTASSIUM GLUCONATE | [facility] | + + + + | 2022-11-10 00:00 | POTASSIUM GLUCONATE | [facility] | + + + + | 2022-12-08 00:00 | POTASSIUM GLUCONATE | [facility] | + + + + | 2022-12-21 00:00 | POTASSIUM GLUCONATE | [facility] | + + + + | 2023-02-18 00:00 | POTASSIUM GLUCONATE | [facility] | + + + + | 2023-02-24 00:00 | POTASSIUM GLUCONATE | [facility] | + + + + | 2023-02-28 00:00 | POTASSIUM GLUCONATE | [facility] | + + + + | 2022-05-01 00:00 | LURASIDONE HCL | [facility] | + + + + | 2022-05-27 00:00 | LURASIDONE HCL | [facility] | + + + + | 2022-08-26 00:00 | LURASIDONE HCL | [facility] | + + + + | 2022-09-21 00:00 | LURASIDONE HCL | [facility] | + + + + | 2022-09-23 00:00 | LURASIDONE HCL | [facility] | + + + + | 2022-11-10 00:00 | LURASIDONE HCL | [facility] | + + + + | 2022-12-08 00:00 | LURASIDONE HCL | [facility] | + + + + | 2022-12-21 00:00 | LURASIDONE HCL | [facility] | + + + + | 2023-02-18 00:00 | LURASIDONE HCL | [facility] | + + + + | 2023-02-24 00:00 | LURASIDONE HCL | [facility] | + + + + | 2023-02-28 00:00 | LURASIDONE HCL | [facility] | + + + + | 2022-09-11 00:00 | lurasidone hydrochloride | [facility] | | | 120 MG Oral Tablet [Latuda] | | | | | | + + + + | 2022-09-11 00:00 | fluvoxaMINE Maleate ER 100 | [facility] | | | MG Oral Capsule Extended | | | | Release 24 Hour | | + + + + | 2022-05-01 00:00 | METRONIDAZOLE | [facility] | + + + + | 2022-05-27 00:00 | METRONIDAZOLE | [facility] | + + + + | 2022-08-26 00:00 | METRONIDAZOLE | [facility] | + + + + | 2022-09-21 00:00 | METRONIDAZOLE | [facility] | + + + + | 2022-09-23 00:00 | METRONIDAZOLE | [facility] | + + + + | 2022-11-10 00:00 | METRONIDAZOLE | [facility] | + + + + | 2022-12-08 00:00 | METRONIDAZOLE | [facility] | + + + + | 2022-12-21 00:00 | METRONIDAZOLE | [facility] | + + + + | 2023-02-18 00:00 | METRONIDAZOLE | [facility] | + + + + | 2023-02-24 00:00 | METRONIDAZOLE | [facility] | + + + + | 2023-02-28 00:00 | METRONIDAZOLE | [facility] | + + + + | 2022-05-01 00:00 | MELOXICAM | [facility] | + + + + | 2022-05-27 00:00 | MELOXICAM | [facility] | + + + + | 2022-08-26 00:00 | MELOXICAM | [facility] | + + + + | 2022-09-21 00:00 | MELOXICAM | [facility] | + + + + | 2022-09-23 00:00 | MELOXICAM | [facility] | + + + + | 2022-11-10 00:00 | MELOXICAM | [facility] | + + + + | 2022-12-08 00:00 | MELOXICAM | [facility] | + + + + | 2022-12-21 00:00 | MELOXICAM | [facility] | + + + + | 2023-02-18 00:00 | MELOXICAM | [facility] | + + + + | 2023-02-24 00:00 | MELOXICAM | [facility] | + + + + | 2023-02-28 00:00 | MELOXICAM | [facility] | + + + + | 2022-05-01 00:00 | Insulin | [facility] | | | SaranyaHum.[email or web address] | | + + + + | 2022-05-27 00:00 | Insulin | [facility] | | | Glalakeshia,Hum.rec.anlog | | + + + + | 2022-08-26 00:00 | Insulin | [facility] | | | Glalakeshia,Hum.rec.anlog | | + + + + | 2022-09-21 00:00 | Insulin | [facility] | | | Glanoreene,Hum.rec.anlog | | + + + + | 2022-09-23 00:00 | Insulin | [facility] | | | Glalakeshia,Hum.rec.anlog | | + + + + | 2022-11-10 00:00 | Insulin | [facility] | | | Glanoreene,Hum.rec.anlog | | + + + + | 2022-12-08 00:00 | Insulin | [facility] | | | Glargine,Hum.rec.anlog | | + + + + | 2022-12-21 00:00 | Insulin | [facility] | | | [facility] | | + + + + | 2023-02-18 00:00 | Insulin | [facility] | | | [facility] | | + + + + | 2023-02-24 00:00 | Insulin | [facility] | | | [facility]an[facility] | | + + + + | 2023-02-28 00:00 | Insulin | [facility] | | | Hum. SaranyarecArmenanlog | | + + + + | 2022-09-11 00:00 | Prazosin HCl 2 MG Oral | [facility] | | | Capsule | | + + + + | 2022-09-11 00:00 | Prazosin HCl 5 MG Oral | [facility] | | | Capsule | | + + + + | 2022-09-11 00:00 | Latuda 120 MG Oral Tablet | [facility] | | | | | + + + + | 2022-09-11 00:00 | Promethazine HCl 25 MG | [facility] | | | Oral Tablet | | + + + + | 2022-05-01 00:00 | FLUTICASONE PROPIONATE 50 | [facility] | | | MCG | | + + + + | 2022-05-27 00:00 | FLUTICASONE PROPIONATE 50 | [facility] | | | MCG | | + + + + | 2022-08-26 00:00 | FLUTICASONE PROPIONATE 50 | [facility] | | | MCG | | + + + + | 2022-09-21 00:00 | FLUTICASONE PROPIONATE 50 | [facility] | | | MCG | | + + + + | 2022-09-23 00:00 | FLUTICASONE PROPIONATE 50 | [facility] | | | MCG | | + + + + | 2022-11-10 00:00 | FLUTICASONE PROPIONATE 50 | [facility] | | | MCG | | + + + + | 2022-12-08 00:00 | FLUTICASONE PROPIONATE 50 | [facility] | | | MCG | | + + + + | 2022-12-21 00:00 | FLUTICASONE PROPIONATE 50 | [facility] | | | MCG | | + + + + | 2023-02-18 00:00 | FLUTICASONE PROPIONATE 50 | [facility] | | | MCG | | + + + + | 2023-02-24 00:00 | FLUTICASONE PROPIONATE 50 | [facility] | | | MCG | | + + + + | 2023-02-28 00:00 | FLUTICASONE PROPIONATE 50 | [facility] | | | MCG | | + + + + | 2022-05-01 00:00 | AGALSIDASE BETA | [facility] | + + + + | 2022-05-27 00:00 | AGALSIDASE BETA | [facility] | + + + + | 2022-08-26 00:00 | AGALSIDASE BETA | [facility] | + + + + | 2022-09-21 00:00 | AGALSIDASE BETA | [facility] | + + + + | 2022-09-23 00:00 | AGALSIDASE BETA | [facility] | + + + + | 2022-11-10 00:00 | AGALSIDASE BETA | [facility] | + + + + | 2022-12-08 00:00 | AGALSIDASE BETA | [facility] | + + + + | 2022-12-21 00:00 | AGALSIDASE BETA | [facility] | + + + + | 2023-02-18 00:00 | AGALSIDASE BETA | [facility] | + + + + | 2023-02-24 00:00 | AGALSIDASE BETA | [facility] | + + + + | 2023-02-28 00:00 | AGALSIDASE BETA | [facility] | + + + + | 2022-05-01 00:00 | ESTRADIOL | [facility] | + + + + | 2022-05-27 00:00 | ESTRADIOL | [facility] | + + + + | 2022-08-26 00:00 | ESTRADIOL | [facility] | + + + + | 2022-09-21 00:00 | ESTRADIOL | [facility] | + + + + | 2022-09-23 00:00 | ESTRADIOL | [facility] | + + + + | 2022-11-10 00:00 | ESTRADIOL | [facility] | + + + + | 2022-12-08 00:00 | ESTRADIOL | [facility] | + + + + | 2022-12-21 00:00 | ESTRADIOL | [facility] | + + + + | 2023-02-18 00:00 | ESTRADIOL | [facility] | + + + + | 2023-02-24 00:00 | ESTRADIOL | [facility] | + + + + | 2023-02-28 00:00 | ESTRADIOL | [facility] | + + + + | 2022-05-01 00:00 | LORAZEPAM | [facility] | + + + + | 2022-05-27 00:00 | LORAZEPAM | [facility] | + + + + | 2022-08-26 00:00 | LORAZEPAM | [facility] | + + + + | 2022-09-21 00:00 | LORAZEPAM | [facility] | + + + + | 2022-09-11 00:00 | lorazepam 1 MG Oral Tablet | [facility] | | | | | + + + + | 2022-05-01 00:00 | OMEPRAZOLE | [facility] | + + + + | 2022-05-27 00:00 | OMEPRAZOLE | [facility] | + + + + | 2022-08-26 00:00 | OMEPRAZOLE | [facility] | + + + + | 2022-09-21 00:00 | OMEPRAZOLE | [facility] | + + + + | 2022-09-23 00:00 | OMEPRAZOLE | [facility] | + + + + | 2022-11-10 00:00 | OMEPRAZOLE | [facility] | + + + + | 2022-05-01 00:00 | ONDANSETRON HCL | [facility] | + + + + | 2022-05-27 00:00 | ONDANSETRON HCL | [facility] | + + + + | 2022-08-26 00:00 | ONDANSETRON HCL | [facility] | + + + + | 2022-09-21 00:00 | ONDANSETRON HCL | [facility] | + + + + | 2022-09-23 00:00 | ONDANSETRON HCL | [facility] | + + + + | 2022-11-10 00:00 | ONDANSETRON HCL | [facility] | + + + + | 2022-12-08 00:00 | ONDANSETRON HCL | [facility] | + + + + | 2022-12-21 00:00 | ONDANSETRON HCL | [facility] | + + + + | 2023-02-18 00:00 | ONDANSETRON HCL | [facility] | + + + + | 2023-02-24 00:00 | ONDANSETRON HCL | [facility] | + + + + | 2023-02-28 00:00 | ONDANSETRON HCL | [facility] | + + + + | 2022-05-01 00:00 | PRAZOSIN HCL | [facility] | + + + + | 2022-05-27 00:00 | PRAZOSIN HCL | [facility] | + + + + | 2022-08-26 00:00 | PRAZOSIN HCL | [facility] | + + + + | 2022-09-21 00:00 | PRAZOSIN HCL | [facility] | + + + + | 2022-09-23 00:00 | PRAZOSIN HCL | [facility] | + + + + | 2022-11-10 00:00 | PRAZOSIN HCL | [facility] | + + + + | 2022-12-08 00:00 | PRAZOSIN HCL | [facility] | + + + + | 2022-12-21 00:00 | PRAZOSIN HCL | [facility] | + + + + | 2023-02-18 00:00 | PRAZOSIN HCL | [facility] | + + + + | 2023-02-24 00:00 | PRAZOSIN HCL | [facility] | + + + + | 2023-02-28 00:00 | PRAZOSIN HCL | [facility] | + + + + | 2022-09-11 00:00 | prazosin 5 MG Oral Capsule | [facility] | | | | | + + + + | 2021-05-07 00:00 | LEVOFLOXACIN | [facility] | + + + + | 2021-05-07 00:00 | LEVOFLOXACIN | [facility] | + + + + | 2021-05-07 00:00 | LEVOFLOXACIN | [facility] | + + + + | 2021-05-07 00:00 | LEVOFLOXACIN | [facility] | + + + + | 2021-05-07 00:00 | LEVOFLOXACIN | [facility] | + + + + | 2021-05-07 00:00 | LEVOFLOXACIN | [facility] | + + + + | 2022-05-01 00:00 | MONTELUKAST SODIUM | [facility] | + + + + | 2022-05-27 00:00 | MONTELUKAST SODIUM | [facility] | + + + + | 2022-08-26 00:00 | MONTELUKAST SODIUM | [facility] | + + + + | 2022-09-21 00:00 | MONTELUKAST SODIUM | [facility] | + + + + | 2022-09-23 00:00 | MONTELUKAST SODIUM | [facility] | + + + + | 2022-11-10 00:00 | MONTELUKAST SODIUM | [facility] | + + + + | 2022-12-08 00:00 | MONTELUKAST SODIUM | [facility] | + + + + | 2022-12-21 00:00 | MONTELUKAST SODIUM | [facility] | + + + + | 2023-02-18 00:00 | MONTELUKAST SODIUM | [facility] | + + + + | 2023-02-24 00:00 | MONTELUKAST SODIUM | [facility] | + + + + | 2023-02-28 00:00 | MONTELUKAST SODIUM | [facility] | + + + + | 2022-09-11 00:00 | omeprazole 20 MG | [facility] | | | Disintegrating Oral Tablet | | + + + + | 2022-05-01 00:00 | FUROSEMIDE | [facility] | + + + + | 2022-05-27 00:00 | FUROSEMIDE | [facility] | + + + + | 2022-08-26 00:00 | FUROSEMIDE | [facility] | + + + + | 2022-09-21 00:00 | FUROSEMIDE | [facility] | + + + + | 2022-09-23 00:00 | FUROSEMIDE | [facility] | + + + + | 2022-11-10 00:00 | FUROSEMIDE | [facility] | + + + + | 2022-12-08 00:00 | FUROSEMIDE | [facility] | + + + + | 2022-12-21 00:00 | FUROSEMIDE | [facility] | + + + + | 2023-02-18 00:00 | FUROSEMIDE | [facility] | + + + + | 2023-02-24 00:00 | FUROSEMIDE | [facility] | + + + + | 2023-02-28 00:00 | FUROSEMIDE | [facility] | + + + + | 2022-09-11 00:00 | Omeprazole 20 MG Oral | [facility] | | | Tablet Delayed Release | | | | Disintegrating | | + + + + | 2022-09-10 00:00 | hydrocortisone 10 MG/ML / | [facility] | | | neomycin 3.5 MG/ML / | | | | polymyxin B 34562 UNT/ML | | | | Otic Solution | | + + + + | 2022-09-12 00:00 | hydrocortisone 10 MG/ML / | [facility] | | | neomycin 3.5 MG/ML / | | | | polymyxin B [id number] UNT/ML | | | | Otic Solution | | + + + + | 2015-04-07 00:00 | CLARITHROMYCIN | [facility] | + + + + | 2015-04-07 00:00 | CLARITHROMYCIN | [facility] | + + + + | 2015-04-07 00:00 | CLARITHROMYCIN | [facility] | + + + + | 2015-04-07 00:00 | CLARITHROMYCIN | [facility] | + + + + | 2015-04-07 00:00 | CLARITHROMYCIN | [facility] | + + + + | 2015-04-07 00:00 | CLARITHROMYCIN | [facility] | + + + + | 2022-05-01 00:00 | LORAZEPAM | [facility] | + + + + | 2022-05-27 00:00 | LORAZEPAM | [facility] | + + + + | 2022-08-26 00:00 | LORAZEPAM | [facility] | + + + + | 2022-09-21 00:00 | LORAZEPAM | [facility] | + + + + | 2022-09-23 00:00 | LORAZEPAM | [facility] | + + + + | 2022-11-10 00:00 | LORAZEPAM | [facility] | + + + + | 2022-12-08 00:00 | LORAZEPAM | [facility] | + + + + | 2022-12-21 00:00 | LORAZEPAM | [facility] | + + + + | 2023-02-18 00:00 | LORAZEPAM | [facility] | + + + + | 2023-02-24 00:00 | LORAZEPAM | [facility] | + + + + | 2023-02-28 00:00 | LORAZEPAM | [facility] | + + + + | 2021-05-07 00:00 | METOCLOPRAMIDE HCL | [facility] | + + + + | 2021-05-07 00:00 | METOCLOPRAMIDE HCL | [facility] | + + + + | 2021-05-07 00:00 | METOCLOPRAMIDE HCL | [facility] | + + + + | 2021-05-07 00:00 | METOCLOPRAMIDE HCL | [facility] | + + + + | 2021-05-07 00:00 | METOCLOPRAMIDE HCL | [facility] | + + + + | 2021-05-07 00:00 | METOCLOPRAMIDE HCL | [facility] | + + + + | 2021-06-06 00:00 | METOCLOPRAMIDE HCL | [facility] | + + + + | 2021-06-06 00:00 | METOCLOPRAMIDE HCL | [facility] | + + + + | 2022-02-23 00:00 | METOCLOPRAMIDE HCL | [facility] | + + + + | 2022-02-23 00:00 | METOCLOPRAMIDE HCL | [facility] | + + + + | 2022-04-24 00:00 | METOCLOPRAMIDE HCL | [facility] | + + + + | 2022-04-24 00:00 | METOCLOPRAMIDE HCL | [facility] | + + + + | 2019-11-09 00:00 | METRONIDAZOLE | [facility] | + + + + | 2019-11-09 00:00 | METRONIDAZOLE | [facility] | + + + + | 2019-11-09 00:00 | METRONIDAZOLE | [facility] | + + + + 2019-11-09 00:00 | METRONIDAZOLE | [facility] | + + + + | 2019-11-09 00:00 | METRONIDAZOLE | [facility] | + + + + | 2019-11-09 00:00 | METRONIDAZOLE | [facility] | + + + + | 2022-12-04 00:00 | Nella Delica Plus | [facility] | | | [id number] Miscellaneous | | + + + + | 2022-09-23 00:00 | SUCRALFATE | [facility] | + + + + | 2022-05-01 00:00 | PRAZOSIN HCL | [facility] | + + + + | 2022-05-27 00:00 | PRAZOSIN HCL | [facility] | + + + + | 2022-08-26 00:00 | PRAZOSIN HCL | [facility] | + + + + | 2022-09-21 00:00 | PRAZOSIN HCL | [facility] | + + + + | 2022-09-23 00:00 | PRAZOSIN HCL | [facility] | + + + + | 2022-11-10 00:00 | PRAZOSIN HCL | [facility] | + + + + | 2022-12-08 00:00 | PRAZOSIN HCL | [facility] | + + + + | 2022-12-21 00:00 | PRAZOSIN HCL | [facility] | + + + + | 2023-02-18 00:00 | PRAZOSIN HCL | [facility] | + + + + | 2023-02-24 00:00 | PRAZOSIN HCL | [facility] | + + + + | 2023-02-28 00:00 | PRAZOSIN HCL | [facility] | + + + + | 2019-11-09 00:00 | LEVOFLOXACIN | [facility] | + + + + | 2019-11-09 00:00 | LEVOFLOXACIN | [facility] | + + + + | 2019-11-09 00:00 | LEVOFLOXACIN | [facility] | + + + + | 2019-11-09 00:00 | LEVOFLOXACIN | [facility] | + + + + | 2019-11-09 00:00 | LEVOFLOXACIN | [facility] | + + + + | 2019-11-09 00:00 | LEVOFLOXACIN | [facility] | + + + + | 2015-08-17 00:00 | CEPHALEXIN | [facility] | + + + + | 2015-08-17 00:00 | CEPHALEXIN | [facility] | + + + + | 2015-08-17 00:00 | CEPHALEXIN | [facility] | + + + + | 2015-08-17 00:00 | CEPHALEXIN | [facility] | + + + + | 2015-08-17 00:00 | CEPHALEXIN | [facility] | + + + + | 2015-08-17 00:00 | CEPHALEXIN | [facility] | + + + + | 2022-12-08 00:00 | AZITHROMYCIN | [facility] | + + + + | 2022-12-08 00:00 | AZITHROMYCIN | [facility] | + + + + | 2022-12-08 00:00 | AZITHROMYCIN | [facility] | + + + + | 2022-05-01 00:00 | ALPRAZOLAM | [facility] | + + + + | 2022-05-27 00:00 | ALPRAZOLAM | [facility] | + + + + | 2022-08-26 00:00 | ALPRAZOLAM | [facility] | + + + + | 2022-09-21 00:00 | ALPRAZOLAM | [facility] | + + + + | 2022-09-23 00:00 | ALPRAZOLAM | [facility] | + + + + | 2022-11-10 00:00 | ALPRAZOLAM | [facility] | + + + + | 2022-12-08 00:00 | ALPRAZOLAM | [facility] | + + + + | 2022-12-21 00:00 | ALPRAZOLAM | [facility] | + + + + | 2023-02-18 00:00 | ALPRAZOLAM | [facility] | + + + + | 2023-02-24 00:00 | ALPRAZOLAM | [facility] | + + + + | 2023-02-28 00:00 | ALPRAZOLAM | [facility] | + + + + | 2022-05-01 00:00 | ESTRADIOL | [facility] | + + + + | 2022-05-27 00:00 | ESTRADIOL | [facility] | + + + + | 2022-08-26 00:00 | ESTRADIOL | [facility] | + + + + | 2022-09-21 00:00 | ESTRADIOL | [facility] | + + + + | 2022-09-23 00:00 | ESTRADIOL | [facility] | + + + + | 2022-11-10 00:00 | ESTRADIOL | [facility] | + + + + | 2022-12-08 00:00 | ESTRADIOL | [facility] | + + + + | 2022-12-21 00:00 | ESTRADIOL | [facility] | + + + + | 2023-02-18 00:00 | ESTRADIOL | [facility] | + + + + | 2023-02-24 00:00 | ESTRADIOL | [facility] | + + + + | 2023-02-28 00:00 | ESTRADIOL | [facility] | + + + + | 2022-05-01 00:00 | BIOTIN | [facility] | + + + + | 2022-05-27 00:00 | BIOTIN | [facility] | + + + + | 2022-08-26 00:00 | BIOTIN | [facility] | + + + + | 2022-09-21 00:00 | BIOTIN | [facility] | + + + + | 2022-09-23 00:00 | BIOTIN | [facility] | + + + + | 2022-11-10 00:00 | BIOTIN | [facility] | + + + + | 2022-12-08 00:00 | BIOTIN | [facility] | + + + + | 2022-12-21 00:00 | BIOTIN | [facility] | + + + + | 2023-02-18 00:00 | BIOTIN | [facility] | + + + + | 2023-02-24 00:00 | BIOTIN | [facility] | + + + + | 2023-02-28 00:00 | BIOTIN | [facility] | + + + + | 2013-07-16 00:00 | CLINDAMYCIN HCL | [facility] | + + + + | 2013-07-16 00:00 | CLINDAMYCIN HCL | [facility] | + + + + | 2013-07-16 00:00 | CLINDAMYCIN HCL | [facility] | + + + + | 2013-07-16 00:00 | CLINDAMYCIN HCL | [facility] | + + + + | 2013-07-16 00:00 | CLINDAMYCIN HCL | [facility] | + + + + | 2013-07-16 00:00 | CLINDAMYCIN HCL | [facility] | + + + + | 2018-10-09 00:00 | CLINDAMYCIN HCL | [facility] | + + + + | 2018-10-09 00:00 | CLINDAMYCIN HCL | [facility] | + + + + | 2018-10-09 00:00 | CLINDAMYCIN HCL | [facility] | + + + + | 2018-10-09 00:00 | CLINDAMYCIN HCL | [facility] | + + + + | 2018-10-09 00:00 | CLINDAMYCIN HCL | [facility] | + + + + | 2018-10-09 00:00 | CLINDAMYCIN HCL | [facility] | + + + + | 2022-11-10 00:00 | CLINDAMYCIN HCL | [facility] | + + + + | 2022-09-23 00:00 | PANTOPRAZOLE SODIUM | [facility] | + + + + | 2022-05-01 00:00 | ZIPRASIDONE HCL | [facility] | + + + + | 2022-05-27 00:00 | ZIPRASIDONE HCL | [facility] | + + + + | 2022-08-26 00:00 | ZIPRASIDONE HCL | [facility] | + + + + | 2022-09-21 00:00 | ZIPRASIDONE HCL | [facility] | + + + + | 2022-09-23 00:00 | ZIPRASIDONE HCL | [facility] | + + + + | 2022-11-10 00:00 | ZIPRASIDONE HCL | [facility] | + + + + | 2022-12-08 00:00 | ZIPRASIDONE HCL | [facility] | + + + + | 2022-12-21 00:00 | ZIPRASIDONE HCL | [facility] | + + + + | 2023-02-18 00:00 | ZIPRASIDONE HCL | [facility] | + + + + | 2023-02-24 00:00 | ZIPRASIDONE HCL | [facility] | + + + + | 2023-02-28 00:00 | ZIPRASIDONE HCL | [facility] | + + + + | 2022-09-11 00:00 | carbamazepine 200 MG Oral | [facility] | | | Tablet | | + + + + | 2022-09-21 00:00 | Clotrimazole | [facility] | + + + + | 2022-10-01 00:00 | Sucralfate 1 GM Oral | [facility] | | | Tablet | | + + + + | 2020-02-07 00:00 | Erythromycin Base | [facility] | + + + + | 2020-02-07 00:00 | Erythromycin Base | [facility] | + + + + | 2020-02-07 00:00 | Erythromycin Base | [facility] | + + + + | 2020-02-07 00:00 | Erythromycin Base | [facility] | + + + + | 2020-02-07 00:00 | Erythromycin Base | [facility] | + + + + | 2020-02-07 00:00 | Erythromycin Base | [facility] | + + + + | 2022-05-01 00:00 | LISINOPRIL | [facility] | + + + + | 2022-05-27 00:00 | LISINOPRIL | [facility] | + + + + | 2022-08-26 00:00 | LISINOPRIL | [facility] | + + + + | 2022-09-21 00:00 | LISINOPRIL | [facility] | + + + + | 2022-09-23 00:00 | LISINOPRIL | [facility] | + + + + | 2022-11-10 00:00 | LISINOPRIL | [facility] | + + + + | 2022-12-08 00:00 | LISINOPRIL | [facility] | + + + + | 2022-12-21 00:00 | LISINOPRIL | [facility] | + + + + | 2023-02-18 00:00 | LISINOPRIL | [facility] | + + + + | 2023-02-24 00:00 | LISINOPRIL | [facility] | + + + + | 2023-02-28 00:00 | LISINOPRIL | [facility] | + + + + | 2022-05-01 00:00 | ONDANSETRON | [facility] | + + + + | 2022-05-27 00:00 | ONDANSETRON | [facility] | + + + + | 2022-08-26 00:00 | ONDANSETRON | [facility] | + + + + | 2022-09-21 00:00 | ONDANSETRON | [facility] | + + + + | 2022-09-23 00:00 | ONDANSETRON | [facility] | + + + + | 2022-11-10 00:00 | ONDANSETRON | [facility] | + + + + | 2022-12-08 00:00 | ONDANSETRON | [facility] | + + + + | 2022-12-08 00:00 | ONDANSETRON | [facility] | + + + + | 2022-12-08 00:00 | ONDANSETRON | [facility] | + + + + | 2022-12-21 00:00 | ONDANSETRON | [facility] | + + + + | 2022-12-21 00:00 | ONDANSETRON | [facility] | + + + + | 2022-12-21 00:00 | ONDANSETRON | [facility] | + + + + | 2022-10-01 00:00 | ondansetron 8 MG | [facility] | | | Disintegrating Oral Tablet | | + + + + | 2023-01-01 00:00 | ondansetron 8 MG | [facility] | | | Disintegrating Oral Tablet | | + + + + | 2023-01-06 00:00 | ondansetron 8 MG | [facility] | | | Disintegrating Oral Tablet | | + + + + | 2022-05-01 00:00 | PRAZOSIN HCL | [facility] | + + + + | 2022-05-27 00:00 | PRAZOSIN HCL | [facility] | + + + + | 2022-08-26 00:00 | PRAZOSIN HCL | [facility] | + + + + | 2022-09-21 00:00 | PRAZOSIN HCL | [facility] | + + + + | 2022-09-23 00:00 | PRAZOSIN HCL | [facility] | + + + + | 2022-11-10 00:00 | PRAZOSIN HCL | [facility] | + + + + | 2022-12-08 00:00 | PRAZOSIN HCL | [facility] | + + + + | 2022-12-21 00:00 | PRAZOSIN HCL | [facility] | + + + + | 2023-02-18 00:00 | PRAZOSIN HCL | [facility] | + + + + | 2023-02-24 00:00 | PRAZOSIN HCL | [facility] | + + + + | 2023-02-28 00:00 | PRAZOSIN HCL | [facility] | + + + + | 2022-09-11 00:00 | prazosin 2 MG Oral Capsule | [facility] | | | | | + + + + | 2015-04-07 00:00 | predniSONE | [facility] | + + + + | 2015-04-07 00:00 | predniSONE | [facility] | + + + + | 2015-04-07 00:00 | predniSONE | [facility] | + + + + | 2015-04-07 00:00 | predniSONE | [facility] | + + + + | 2015-04-07 00:00 | predniSONE | [facility] | + + + + | 2015-04-07 00:00 | predniSONE | [facility] | + + + + | 2022-12-08 00:00 | predniSONE | [facility] | + + + + | 2022-12-08 00:00 | predniSONE | [facility] | + + + + | 2022-12-08 00:00 | predniSONE | [facility] | + + + + | 2022-05-01 00:00 | QUETIAPINE FUMARATE | [facility] | + + + + | 2022-05-27 00:00 | QUETIAPINE FUMARATE | [facility] | + + + + | 2022-08-26 00:00 | QUETIAPINE FUMARATE | [facility] | + + + + | 2022-09-21 00:00 | QUETIAPINE FUMARATE | [facility] | + + + + | 2022-09-23 00:00 | QUETIAPINE FUMARATE | [facility] | + + + + | 2022-11-10 00:00 | QUETIAPINE FUMARATE | [facility] | + + + + | 2022-12-08 00:00 | QUETIAPINE FUMARATE | [facility] | + + + + | 2022-12-21 00:00 | QUETIAPINE FUMARATE | [facility] | + + + + | 2023-02-18 00:00 | QUETIAPINE FUMARATE | [facility] | + + + + | 2023-02-24 00:00 | QUETIAPINE FUMARATE | [facility] | + + + + | 2023-02-28 00:00 | QUETIAPINE FUMARATE | [facility] | + + + + | 2022-05-01 00:00 | SUMATRIPTAN SUCCINATE | [facility] | + + + + | 2022-05-27 00:00 | SUMATRIPTAN SUCCINATE | [facility] | + + + + | 2022-08-26 00:00 | SUMATRIPTAN SUCCINATE | [facility] | + + + + | 2022-09-21 00:00 | SUMATRIPTAN SUCCINATE | [facility] | + + + + | 2022-09-23 00:00 | SUMATRIPTAN SUCCINATE | [facility] | + + + + | 2022-11-10 00:00 | SUMATRIPTAN SUCCINATE | [facility] | + + + + | 2022-12-08 00:00 | SUMATRIPTAN SUCCINATE | [facility] | + + + + | 2022-12-21 00:00 | SUMATRIPTAN SUCCINATE | [facility] | + + + + | 2023-02-18 00:00 | SUMATRIPTAN SUCCINATE | [facility] | + + + + | 2023-02-24 00:00 | SUMATRIPTAN SUCCINATE | [facility] | + + + + | 2023-02-28 00:00 | SUMATRIPTAN SUCCINATE | [facility] | + + + + | 2022-05-01 00:00 | VALACYCLOVIR HCL | [facility] | + + + + | 2022-05-27 00:00 | VALACYCLOVIR HCL | [facility] | + + + + | 2022-08-26 00:00 | VALACYCLOVIR HCL | [facility] | + + + + | 2022-09-21 00:00 | VALACYCLOVIR HCL | [facility] | + + + + | 2022-09-23 00:00 | VALACYCLOVIR HCL | [facility] | + + + + | 2022-11-10 00:00 | VALACYCLOVIR HCL | [facility] | + + + + | 2022-09-11 00:00 | valacyclovir 500 MG Oral | [facility] | | | Tablet | | + + + + | 2022-10-07 00:00 | valacyclovir 500 MG Oral | [facility] | | | Tablet | | + + + + | 2022-11-10 00:00 | FUROSEMIDE | [facility] | + + + + | 2022-12-08 00:00 | FUROSEMIDE | [facility] | + + + + | 2022-12-21 00:00 | FUROSEMIDE | [facility] | + + + + | 2023-02-18 00:00 | FUROSEMIDE | [facility] | + + + + | 2023-02-24 00:00 | FUROSEMIDE | [facility] | + + + + | 2023-02-28 00:00 | FUROSEMIDE | [facility] | + + + + | 2022-09-11 00:00 | furosemide 40 MG Oral | [facility] | | | Tablet | | + + + + | 2022-10-01 00:00 | pantoprazole 40 MG Delayed | [facility] | | | Release Oral Tablet | | + + + + | 2022-10-30 00:00 | pantoprazole 40 MG Delayed | [facility] | | | Release Oral Tablet | | + + + + | 2022-10-01 00:00 | sucralfate 1000 MG Oral | [facility] | | | Tablet | | + + + + | 2022-05-01 00:00 | GLIPIZIDE | [facility] | + + + + | 2022-05-27 00:00 | GLIPIZIDE | [facility] | + + + + | 2022-08-26 00:00 | GLIPIZIDE | [facility] | + + + + | 2022-09-21 00:00 | GLIPIZIDE | [facility] | + + + + | 2022-09-23 00:00 | GLIPIZIDE | [facility] | + + + + | 2022-11-10 00:00 | GLIPIZIDE | [facility] | + + + + | 2022-12-08 00:00 | GLIPIZIDE | [facility] | + + + + | 2022-12-21 00:00 | GLIPIZIDE | [facility] | + + + + | 2023-02-18 00:00 | GLIPIZIDE | [facility] | + + + + | 2023-02-24 00:00 | GLIPIZIDE | [facility] | + + + + | 2023-02-28 00:00 | GLIPIZIDE | [facility] | + + + + | 2022-09-11 00:00 | Zolpidem Tartrate 10 MG | [facility] | | | Oral Tablet | | + + + + | 2022-09-11 00:00 | Meclizine HCl 25 MG Oral | [facility] | | | Tablet | | + + + + | 2022-05-01 00:00 | PANTOPRAZOLE SODIUM | [facility] | + + + + | 2022-05-27 00:00 | PANTOPRAZOLE SODIUM | [facility] | + + + + | 2022-08-26 00:00 | PANTOPRAZOLE SODIUM | [facility] | + + + + | 2022-09-21 00:00 | PANTOPRAZOLE SODIUM | [facility] | + + + + | 2022-09-23 00:00 | PANTOPRAZOLE SODIUM | [facility] | + + + + | 2022-11-10 00:00 | PANTOPRAZOLE SODIUM | [facility] | + + + + | 2022-12-08 00:00 | PANTOPRAZOLE SODIUM | [facility] | + + + + | 2022-12-21 00:00 | PANTOPRAZOLE SODIUM | [facility] | + + + + | 2023-02-18 00:00 | PANTOPRAZOLE SODIUM | [facility] | + + + + | 2023-02-24 00:00 | PANTOPRAZOLE SODIUM | [facility] | + + + + | 2023-02-28 00:00 | PANTOPRAZOLE SODIUM | [facility] | + + + + | 2022-09-11 00:00 | valACYclovir HCl 500 MG | [facility] | | | Oral Tablet | | + + + + | 2022-10-07 00:00 | valACYclovir HCl 500 MG | [facility] | | | Oral Tablet | | + + + + | 2022-09-11 00:00 | carBAMazepine 200 MG Oral | [facility] | | | Tablet | | + + + + | 2022-05-01 00:00 | Pregabalin | [facility] | + + + + | 2022-05-27 00:00 | Pregabalin | [facility] | + + + + | 2022-08-26 00:00 | Pregabalin | [facility] | + + + + | 2022-09-21 00:00 | Pregabalin | [facility] | + + + + | 2022-05-01 00:00 | Pregabalin | [facility] | + + + + | 2022-05-27 00:00 | Pregabalin | [facility] | + + + + | 2022-08-26 00:00 | Pregabalin | [facility] | + + + + | 2022-09-21 00:00 | Pregabalin | [facility] | + + + + | 2022-09-23 00:00 | Pregabalin | [facility] | + + + + | 2022-11-10 00:00 | Pregabalin | [facility] | + + + + | 2022-12-08 00:00 | Pregabalin | [facility] | + + + + | 2022-12-21 00:00 | Pregabalin | [facility] | + + + + | 2023-02-18 00:00 | Pregabalin | [facility] | + + + + | 2023-02-24 00:00 | Pregabalin | [facility] | + + + + | 2023-02-28 00:00 | Pregabalin | [facility] | + + + + | 2022-05-01 00:00 | NYSTATIN | [facility] | + + + + | 2022-05-27 00:00 | NYSTATIN | [facility] | + + + + | 2022-08-26 00:00 | NYSTATIN | [facility] | + + + + | 2022-09-21 00:00 | NYSTATIN | [facility] | + + + + | 2022-09-23 00:00 | NYSTATIN | [facility] | + + + + | 2022-11-10 00:00 | NYSTATIN | [facility] | + + + + | 2022-12-08 00:00 | NYSTATIN | [facility] | + + + + | 2022-12-21 00:00 | NYSTATIN | [facility] | + + + + | 2023-02-18 00:00 | NYSTATIN | [facility] | + + + + | 2023-02-24 00:00 | NYSTATIN | [facility] | + + + + | 2023-02-28 00:00 | NYSTATIN | [facility] | + + + + | 2022-09-11 00:00 | metFORMIN HCl 1000 MG Oral | [facility] | | | Tablet | | + + + + | 2022-10-01 00:00 | metFORMIN HCl 1000 MG Oral | [facility] | | | Tablet | | + + + + | 2022-12-17 00:00 | metFORMIN HCl 1000 MG Oral | [facility] | | | Tablet | | + + + + | 2022-05-01 00:00 | DULOXETINE HCL | [facility] | + + + + | 2022-05-27 00:00 | DULOXETINE HCL | [facility] | + + + + | 2022-08-26 00:00 | DULOXETINE HCL | [facility] | + + + + | 2022-09-21 00:00 | DULOXETINE HCL | [facility] | + + + + | 2022-09-23 00:00 | DULOXETINE HCL | [facility] | + + + + | 2022-11-10 00:00 | DULOXETINE HCL | [facility] | + + + + | 2022-12-08 00:00 | DULOXETINE HCL | [facility] | + + + + | 2022-12-21 00:00 | DULOXETINE HCL | [facility] | + + + + | 2023-02-18 00:00 | DULOXETINE HCL | [facility] | + + + + | 2023-02-24 00:00 | DULOXETINE HCL | [facility] | + + + + | 2023-02-28 00:00 | DULOXETINE HCL | [facility] | + + + + | 2022-05-01 00:00 | PREGABALIN | [facility] | + + + + | 2022-05-27 00:00 | PREGABALIN | [facility] | + + + + | 2022-08-26 00:00 | PREGABALIN | [facility] | + + + + | 2022-09-21 00:00 | PREGABALIN | [facility] | + + + + | 2022-09-23 00:00 | PREGABALIN | [facility] | + + + + | 2022-11-10 00:00 | PREGABALIN | [facility] | + + + + | 2022-12-08 00:00 | PREGABALIN | [facility] | + + + + | 2022-12-21 00:00 | PREGABALIN | [facility] | + + + + | 2023-02-18 00:00 | PREGABALIN | [facility] | + + + + | 2023-02-24 00:00 | PREGABALIN | [facility] | + + + + | 2023-02-28 00:00 | PREGABALIN | [facility] | + + + + | 2022-10-01 00:00 | Pantoprazole Sodium 40 MG | [facility] | | | Oral Tablet Delayed Release | | | | | | + + + + | 2022-10-30 00:00 | Pantoprazole Sodium 40 MG | [facility] | | | Oral Tablet Delayed Release | | | | | | + + + + | 2022-12-08 00:00 | ALBUTEROL SULFATE | [facility] | + + + + | 2022-12-08 00:00 | ALBUTEROL SULFATE | [facility] | + + + + | 2022-12-08 00:00 | ALBUTEROL SULFATE | [facility] | + + + + | 2022-10-01 00:00 | nystatin 100 UNT/MG | [facility] | | | Topical Powder | | + + + + | 2022-10-01 00:00 | Ondansetron 8 MG Oral | [facility] | | | Tablet Disintegrating | | + + + + | 2023-01-01 00:00 | Ondansetron 8 MG Oral | [facility] | | | Tablet Disintegrating | | + + + + | 2023-01-06 00:00 | Ondansetron 8 MG Oral | [facility] | | | Tablet Disintegrating | | + + + + | 2022-10-01 00:00 | Dicyclomine HCl 10 MG Oral | [facility] | | | Capsule | | + + + + | 2023-02-24 00:00 | CLINDAMYCIN HCL | [facility] | + + + + | 2023-02-24 00:00 | CLINDAMYCIN HCL | [facility] | + + + + | 2022-12-03 00:00 | BD Lancet Ultrafine 33G | [facility] | | | Miscellaneous | | + + + + | 2022-09-10 00:00 | Jlsklwzg-Cxqjhidua-PO | [facility] | | | 3.5-33808-0 Otic Solution | | + + + + | 2022-09-12 00:00 | Edzqdczc-Mrtnqqgug-OY | [facility] | | | 3.5-19905-4 Otic Solution | | + + + + | 2022-05-01 00:00 | VITAMIN D3/MENAQUINONE 7 | [facility] | + + + + | 2022-05-27 00:00 | VITAMIN D3/MENAQUINONE 7 | [facility] | + + + + | 2022-08-26 00:00 | VITAMIN D3/MENAQUINONE 7 | [facility] | + + + + | 2022-09-21 00:00 | VITAMIN D3/MENAQUINONE 7 | [facility] | + + + + | 2022-09-23 00:00 | VITAMIN D3/MENAQUINONE 7 | [facility] | + + + + | 2022-11-10 00:00 | VITAMIN D3/MENAQUINONE 7 | [facility] | + + + + | 2022-12-08 00:00 | VITAMIN D3/MENAQUINONE 7 | [facility] | + + + + | 2022-12-21 00:00 | VITAMIN D3/MENAQUINONE 7 | [facility] | + + + + | 2023-02-18 00:00 | VITAMIN D3/MENAQUINONE 7 | [facility] | + + + + | 2023-02-24 00:00 | VITAMIN D3/MENAQUINONE 7 | [facility] | + + + + | 2023-02-28 00:00 | VITAMIN D3/MENAQUINONE 7 | [facility] | + + + + | 2022-05-01 00:00 | TRAMADOL HCL | [facility] | + + + + | 2022-05-27 00:00 | TRAMADOL HCL | [facility] | + + + + | 2022-08-26 00:00 | TRAMADOL HCL | [facility] | + + + + | 2022-09-21 00:00 | TRAMADOL HCL | [facility] | + + + + | 2022-09-23 00:00 | TRAMADOL HCL | [facility] | + + + + | 2022-11-10 00:00 | TRAMADOL HCL | [facility] | + + + + | 2022-12-08 00:00 | TRAMADOL HCL | [facility] | + + + + | 2022-12-21 00:00 | TRAMADOL HCL | [facility] | + + + + | 2023-02-18 00:00 | TRAMADOL HCL | [facility] | + + + + | 2023-02-24 00:00 | TRAMADOL HCL | [facility] | + + + + | 2023-02-28 00:00 | TRAMADOL HCL | [facility] | + + + + | 2018-10-11 00:00 | TRAMADOL HCL | [facility] | + + + + | 2018-10-11 00:00 | TRAMADOL HCL | [facility] | + + + + | 2018-10-11 00:00 | TRAMADOL HCL | [facility] | + + + + | 2018-10-11 00:00 | TRAMADOL HCL | [facility] | + + + + | 2018-10-11 00:00 | TRAMADOL HCL | [facility] | + + + + | 2018-10-11 00:00 | TRAMADOL HCL | [facility] | + + + + | 2022-05-01 00:00 | TRAMADOL HCL | [facility] | + + + + | 2022-05-27 00:00 | TRAMADOL HCL | [facility] | + + + + | 2022-08-26 00:00 | TRAMADOL HCL | [facility] | + + + + | 2022-09-21 00:00 | TRAMADOL HCL | [facility] | + + + + | 2022-09-23 00:00 | TRAMADOL HCL | [facility] | + + + + | 2022-11-10 00:00 | TRAMADOL HCL | [facility] | + + + + | 2022-12-08 00:00 | TRAMADOL HCL | [facility] | + + + + | 2022-12-21 00:00 | TRAMADOL HCL | [facility] | + + + + | 2023-02-18 00:00 | TRAMADOL HCL | [facility] | + + + + | 2023-02-24 00:00 | TRAMADOL HCL | [facility] | + + + + | 2023-02-28 00:00 | TRAMADOL HCL | [facility] | + + + + | 2022-05-01 00:00 | INSULIN | [facility] | | | GLALAKESHIA,HUM.REC.ANLOG | | + + + + | 2022-05-27 00:00 | INSULIN | [facility] | | | GLANOREENE,HUM.REC.ANLOG | | + + + + | 2022-08-26 00:00 | INSULIN | [facility] | | | GLARRENE,HUM.REC.ANLOG | | + + + + | 2022-09-21 00:00 | INSULIN | [facility] | | | GLANOREENE,HUM.REC.ANLOG | | + + + + | 2022-09-23 00:00 | INSULIN | [facility] | | | GLANOREENE,HUM.REC.ANLOG | | + + + + | 2022-11-10 00:00 | INSULIN | [facility] | | | GLARRENE,HUM.REC.ANLOG | | + + + + | 2022-12-08 00:00 | INSULIN | [facility] | | | GLARGINE,HUM.REC.ANLOG | | + + + + | 2022-12-21 00:00 | INSULIN | [facility] | | | [facility] | | + + + + | 2023-02-18 00:00 | INSULIN | [facility] | | | [facility] | | + + + + | 2023-02-24 00:00 | INSULIN | [facility] | | | [facility] | | + + + + | 2023-02-28 00:00 | INSULIN | [facility] | | | GLALAKESHIAHUM.REC.ANLOG | | + + + + | 2022-05-01 00:00 | ZOLPIDEM TARTRATE | [facility] | + + + + | 2022-05-27 00:00 | ZOLPIDEM TARTRATE | [facility] | + + + + | 2022-08-26 00:00 | ZOLPIDEM TARTRATE | [facility] | + + + + | 2022-09-21 00:00 | ZOLPIDEM TARTRATE | [facility] | + + + + | 2022-09-23 00:00 | ZOLPIDEM TARTRATE | [facility] | + + + + | 2022-11-10 00:00 | ZOLPIDEM TARTRATE | [facility] | + + + + | 2022-12-08 00:00 | ZOLPIDEM TARTRATE | [facility] | + + + + | 2022-12-21 00:00 | ZOLPIDEM TARTRATE | [facility] | + + + + | 2023-02-18 00:00 | ZOLPIDEM TARTRATE | [facility] | + + + + | 2023-02-24 00:00 | ZOLPIDEM TARTRATE | [facility] | + + + + | 2023-02-28 00:00 | ZOLPIDEM TARTRATE | [facility] | + + + + | 2022-09-11 00:00 | zolpidem tartrate 10 MG | [facility] | | | Oral Tablet | | + + + + | 2022-05-01 00:00 | Diclofenac Sodium | [facility] | + + + + | 2022-05-27 00:00 | Diclofenac Sodium | [facility] | + + + + | 2022-05-01 00:00 | TRAZODONE HCL | [facility] | + + + + | 2022-05-27 00:00 | TRAZODONE HCL | [facility] | + + + + | 2022-08-26 00:00 | TRAZODONE HCL | [facility] | + + + + | 2022-09-21 00:00 | TRAZODONE HCL | [facility] | + + + + | 2022-09-23 00:00 | TRAZODONE HCL | [facility] | + + + + | 2022-11-10 00:00 | TRAZODONE HCL | [facility] | + + + + | 2022-12-08 00:00 | TRAZODONE HCL | [facility] | + + + + | 2022-12-21 00:00 | TRAZODONE HCL | [facility] | + + + + | 2023-02-18 00:00 | TRAZODONE HCL | [facility] | + + + + | 2023-02-24 00:00 | TRAZODONE HCL | [facility] | + + + + | 2023-02-28 00:00 | TRAZODONE HCL | [facility] | + + + + | 2022-05-01 00:00 | PROPRANOLOL HCL | [facility] | + + + + | 2022-05-27 00:00 | PROPRANOLOL HCL | [facility] | + + + + | 2022-08-26 00:00 | PROPRANOLOL HCL | [facility] | + + + + | 2022-09-21 00:00 | PROPRANOLOL HCL | [facility] | + + + + | 2022-09-23 00:00 | PROPRANOLOL HCL | [facility] | + + + + | 2022-11-10 00:00 | PROPRANOLOL HCL | [facility] | + + + + | 2022-12-08 00:00 | PROPRANOLOL HCL | [facility] | + + + + | 2022-12-21 00:00 | PROPRANOLOL HCL | [facility] | + + + + | 2023-02-18 00:00 | PROPRANOLOL HCL | [facility] | + + + + | 2023-02-24 00:00 | PROPRANOLOL HCL | [facility] | + + + + | 2023-02-28 00:00 | PROPRANOLOL HCL | [facility] | + + + + | 2022-05-01 00:00 | AMITRIPTYLINE HCL | [facility] | + + + + | 2022-05-27 00:00 | AMITRIPTYLINE HCL | [facility] | + + + + | 2022-08-26 00:00 | AMITRIPTYLINE HCL | [facility] | + + + + | 2022-09-21 00:00 | AMITRIPTYLINE HCL | [facility] | + + + + | 2022-09-23 00:00 | AMITRIPTYLINE HCL | [facility] | + + + + | 2022-11-10 00:00 | AMITRIPTYLINE HCL | [facility] | + + + + | 2022-12-08 00:00 | AMITRIPTYLINE HCL | [facility] | + + + + | 2022-12-21 00:00 | AMITRIPTYLINE HCL | [facility] | + + + + | 2023-02-18 00:00 | AMITRIPTYLINE HCL | [facility] | + + + + | 2023-02-24 00:00 | AMITRIPTYLINE HCL | [facility] | + + + + | 2023-02-28 00:00 | AMITRIPTYLINE HCL | [facility] | + + + + | 2022-09-11 00:00 | amitriptyline | [facility] | | | hydrochloride 100 MG Oral | | | | Tablet | | + + + + | 2022-05-01 00:00 | AMITRIPTYLINE HCL | [facility] | + + + + | 2022-05-27 00:00 | AMITRIPTYLINE HCL | [facility] | + + + + | 2022-08-26 00:00 | AMITRIPTYLINE HCL | [facility] | + + + + | 2022-09-21 00:00 | AMITRIPTYLINE HCL | [facility] | + + + + | 2022-09-23 00:00 | AMITRIPTYLINE HCL | [facility] | + + + + | 2022-11-10 00:00 | AMITRIPTYLINE HCL | [facility] | + + + + | 2022-12-08 00:00 | AMITRIPTYLINE HCL | [facility] | + + + + | 2022-12-21 00:00 | AMITRIPTYLINE HCL | [facility] | + + + + | 2023-02-18 00:00 | AMITRIPTYLINE HCL | [facility] | + + + + | 2023-02-24 00:00 | AMITRIPTYLINE HCL | [facility] | + + + + | 2023-02-28 00:00 | AMITRIPTYLINE HCL | [facility] | + + + + | 2022-05-01 00:00 | AMITRIPTYLINE HCL | [facility] | + + + + | 2022-05-27 00:00 | AMITRIPTYLINE HCL | [facility] | + + + + | 2022-08-26 00:00 | AMITRIPTYLINE HCL | [facility] | + + + + | 2022-09-21 00:00 | AMITRIPTYLINE HCL | [facility] | + + + + | 2022-09-23 00:00 | AMITRIPTYLINE HCL | [facility] | + + + + | 2022-11-10 00:00 | AMITRIPTYLINE HCL | [facility] | + + + + | 2022-12-08 00:00 | AMITRIPTYLINE HCL | [facility] | + + + + | 2022-12-21 00:00 | AMITRIPTYLINE HCL | [facility] | + + + + | 2023-02-18 00:00 | AMITRIPTYLINE HCL | [facility] | + + + + | 2023-02-24 00:00 | AMITRIPTYLINE HCL | [facility] | + + + + | 2023-02-28 00:00 | AMITRIPTYLINE HCL | [facility] | + + + + | 2022-05-01 00:00 | HYDROCODONE/APAP | [facility] | | | (10-325MG) | | + + + + | 2022-05-27 00:00 | HYDROCODONE/APAP | [facility] | | | (10-325MG) | | + + + + | 2022-08-26 00:00 | HYDROCODONE/APAP | [facility] | | | (10-325MG) | | + + + + | 2022-09-21 00:00 | HYDROCODONE/APAP | [facility] | | | (10-325MG) | | + + + + | 2022-09-23 00:00 | HYDROCODONE/APAP | [facility] | | | (10-325MG) | | + + + + | 2022-11-10 00:00 | HYDROCODONE/APAP | [facility] | | | (10-325MG) | | + + + + | 2022-12-08 00:00 | HYDROCODONE/APAP | [facility] | | | (10-325MG) | | + + + + | 2022-12-21 00:00 | HYDROCODONE/APAP | [facility] | | | (10-325MG) | | + + + + | 2023-02-18 00:00 | HYDROCODONE/APAP | [facility] | | | (10-325MG) | | + + + + | 2023-02-24 00:00 | HYDROCODONE/APAP | [facility] | | | (10-325MG) | | + + + + | 2023-02-28 00:00 | HYDROCODONE/APAP | [facility] | | | (10-325MG) | | + + + + | 2021-05-20 00:00 | HYDROCODONE | [facility] | | | BIT/ACETAMINOPHEN | | + + + + | 2021-05-20 00:00 | HYDROCODONE | [facility] | | | BIT/ACETAMINOPHEN | | + + + + | 2021-05-20 00:00 | HYDROCODONE | [facility] | | | BIT/ACETAMINOPHEN | | + + + + | 2021-05-20 00:00 | HYDROCODONE | [facility] | | | BIT/ACETAMINOPHEN | | + + + + | 2021-05-20 00:00 | HYDROCODONE | [facility] | | | BIT/ACETAMINOPHEN | | + + + + | 2021-05-20 00:00 | HYDROCODONE | [facility] | | | BIT/ACETAMINOPHEN | | + + + + | 2022-09-23 00:00 | HYDROCODONE | [facility] | | | BIT/ACETAMINOPHEN | | + + + + | 2023-02-28 00:00 | HYDROCODONE | [facility] | | | BIT/ACETAMINOPHEN | | + + + + | 2015-08-17 00:00 | HYDROCODONE | [facility] | | | BIT/ACETAMINOPHEN | | + + + + | 2015-08-17 00:00 | HYDROCODONE | [facility] | | | BIT/ACETAMINOPHEN | | + + + + | 2015-08-17 00:00 | HYDROCODONE | [facility] | | | BIT/ACETAMINOPHEN | | + + + + | 2015-08-17 00:00 | HYDROCODONE | [facility] | | | BIT/ACETAMINOPHEN | | + + + + | 2015-08-17 00:00 | HYDROCODONE | [facility] | | | BIT/ACETAMINOPHEN | | + + + + | 2015-08-17 00:00 | HYDROCODONE | [facility] | | | BIT/ACETAMINOPHEN | | + + + + | 2015-09-03 00:00 | HYDROCODONE | [facility] | | | BIT/ACETAMINOPHEN | | + + + + | 2015-09-03 00:00 | HYDROCODONE | [facility] | | | BIT/ACETAMINOPHEN | | + + + + | 2015-09-03 00:00 | HYDROCODONE | [facility] | | | BIT/ACETAMINOPHEN | | + + + + | 2015-09-03 00:00 | HYDROCODONE | [facility] | | | BIT/ACETAMINOPHEN | | + + + + | 2015-09-03 00:00 | HYDROCODONE | [facility] | | | BIT/ACETAMINOPHEN | | + + + + | 2015-09-03 00:00 | HYDROCODONE | [facility] | | | BIT/ACETAMINOPHEN | | + + + + | 2018-10-09 00:00 | HYDROCODONE | [facility] | | | BIT/ACETAMINOPHEN | | + + + + | 2018-10-09 00:00 | HYDROCODONE | [facility] | | | BIT/ACETAMINOPHEN | | + + + + | 2018-10-09 00:00 | HYDROCODONE | [facility] | | | BIT/ACETAMINOPHEN | | + + + + | 2018-10-09 00:00 | HYDROCODONE | [facility] | | | BIT/ACETAMINOPHEN | | + + + + | 2018-10-09 00:00 | HYDROCODONE | [facility] | | | BIT/ACETAMINOPHEN | | + + + + | 2018-10-09 00:00 | HYDROCODONE | [facility] | | | BIT/ACETAMINOPHEN | | + + + + | 2022-05-01 00:00 | HYDROCODONE | [facility] | | | BIT/ACETAMINOPHEN | | + + + + | 2022-05-27 00:00 | HYDROCODONE | [facility] | | | BIT/ACETAMINOPHEN | | + + + + | 2022-08-26 00:00 | HYDROCODONE | [facility] | | | BIT/ACETAMINOPHEN | | + + + + | 2022-09-21 00:00 | HYDROCODONE | [facility] | | | BIT/ACETAMINOPHEN | | + + + + | 2022-09-23 00:00 | HYDROCODONE | [facility] | | | BIT/ACETAMINOPHEN | | + + + + | 2022-11-10 00:00 | HYDROCODONE | [facility] | | | BIT/ACETAMINOPHEN | | + + + + | 2022-12-08 00:00 | HYDROCODONE | [facility] | | | BIT/ACETAMINOPHEN | | + + + + | 2022-12-21 00:00 | HYDROCODONE | [facility] | | | BIT/ACETAMINOPHEN | | + + + + | 2023-02-18 00:00 | HYDROCODONE | [facility] | | | BIT/ACETAMINOPHEN | | + + + + | 2023-02-24 00:00 | HYDROCODONE | [facility] | | | BIT/ACETAMINOPHEN | | + + + + | 2023-02-28 00:00 | HYDROCODONE | [facility] | | | BIT/ACETAMINOPHEN | | + + + + | 2022-12-08 00:00 | HYDROCODONE | [facility] | | | BIT/ACETAMINOPHEN | | + + + + | 2022-12-08 00:00 | HYDROCODONE | [facility] | | | BIT/ACETAMINOPHEN | | + + + + | 2022-12-08 00:00 | HYDROCODONE | [facility] | | | BIT/ACETAMINOPHEN | | + + + + | 2020-08-28 00:00 | HYDROCODONE | [facility] | | | BIT/ACETAMINOPHEN | | + + + + | 2020-08-28 00:00 | HYDROCODONE | [facility] | | | BIT/ACETAMINOPHEN | | + + + + | 2020-08-28 00:00 | HYDROCODONE | [facility] | | | BIT/ACETAMINOPHEN | | + + + + | 2020-08-28 00:00 | HYDROCODONE | [facility] | | | BIT/ACETAMINOPHEN | | + + + + | 2020-08-28 00:00 | HYDROCODONE | [facility] | | | BIT/ACETAMINOPHEN | | + + + + | 2020-08-28 00:00 | HYDROCODONE | [facility] | | | BIT/ACETAMINOPHEN | | + + + + | 2022-05-01 00:00 | METFORMIN HCL | [facility] | + + + + | 2022-05-27 00:00 | METFORMIN HCL | [facility] | + + + + | 2022-08-26 00:00 | METFORMIN HCL | [facility] | + + + + | 2022-09-21 00:00 | METFORMIN HCL | [facility] | + + + + | 2022-09-23 00:00 | METFORMIN HCL | [facility] | + + + + | 2022-11-10 00:00 | METFORMIN HCL | [facility] | + + + + | 2022-12-08 00:00 | METFORMIN HCL | [facility] | + + + + | 2022-12-21 00:00 | METFORMIN HCL | [facility] | + + + + | 2023-02-18 00:00 | METFORMIN HCL | [facility] | + + + + | 2023-02-24 00:00 | METFORMIN HCL | [facility] | + + + + | 2023-02-28 00:00 | METFORMIN HCL | [facility] | + + + + | 2022-09-11 00:00 | metformin hydrochloride | [facility] | | | 1000 MG Oral Tablet | | + + + + | 2022-10-01 00:00 | metformin hydrochloride | [facility] | | | 1000 MG Oral Tablet | | + + + + | 2022-12-17 00:00 | metformin hydrochloride | [facility] | | | 1000 MG Oral Tablet | | + + + + | 2022-09-23 00:00 | CARBAMAZEPINE | [facility] | + + + + | 2022-11-10 00:00 | CARBAMAZEPINE | [facility] | + + + + | 2022-12-08 00:00 | CARBAMAZEPINE | [facility] | + + + + | 2022-12-21 00:00 | CARBAMAZEPINE | [facility] | + + + + | 2023-02-18 00:00 | CARBAMAZEPINE | [facility] | + + + + | 2023-02-24 00:00 | CARBAMAZEPINE | [facility] | + + + + | 2023-02-28 00:00 | CARBAMAZEPINE | [facility] | + + + + | 2015-09-03 00:00 | ONDANSETRON | [facility] | + + + + | 2015-09-03 00:00 | ONDANSETRON | [facility] | + + + + | 2015-09-03 00:00 | ONDANSETRON | [facility] | + + + + | 2015-09-03 00:00 | ONDANSETRON | [facility] | + + + + | 2015-09-03 00:00 | ONDANSETRON | [facility] | + + + + | 2015-09-03 00:00 | ONDANSETRON | [facility] | + + + + | 2015-11-21 00:00 | ONDANSETRON | [facility] | + + + + | 2015-11-21 00:00 | ONDANSETRON | [facility] | + + + + | 2015-11-21 00:00 | ONDANSETRON | [facility] | + + + + | 2015-11-21 00:00 | ONDANSETRON | [facility] | + + + + | 2015-11-21 00:00 | ONDANSETRON | [facility] | + + + + | 2015-11-21 00:00 | ONDANSETRON | [facility] | + + + + | 2014-09-29 00:00 | ONDANSETRON | [facility] | + + + + | 2014-09-29 00:00 | ONDANSETRON | [facility] | + + + + | 2014-09-29 00:00 | ONDANSETRON | [facility] | + + + + | 2014-09-29 00:00 | ONDANSETRON | [facility] | + + + + | 2014-09-29 00:00 | ONDANSETRON | [facility] | + + + + | 2014-09-29 00:00 | ONDANSETRON | [facility] | + + + + | 2022-10-01 00:00 | Nystatin [id number] UNIT/GM | [facility] | | | External Powder | | + + + + | 2022-09-11 00:00 | Furosemide 40 MG Oral | [facility] | | | Tablet | | + + + + | 2022-05-01 00:00 | LIRAGLUTIDE | [facility] | + + + + | 2022-05-27 00:00 | LIRAGLUTIDE | [facility] | + + + + | 2022-08-26 00:00 | LIRAGLUTIDE | [facility] | + + + + | 2022-09-21 00:00 | LIRAGLUTIDE | [facility] | + + + + | 2022-09-23 00:00 | LIRAGLUTIDE | [facility] | + + + + | 2022-11-10 00:00 | LIRAGLUTIDE | [facility] | + + + + | 2022-12-08 00:00 | LIRAGLUTIDE | [facility] | + + + + | 2022-12-21 00:00 | LIRAGLUTIDE | [facility] | + + + + | 2023-02-18 00:00 | LIRAGLUTIDE | [facility] | + + + + | 2023-02-24 00:00 | LIRAGLUTIDE | [facility] | + + + + | 2023-02-28 00:00 | LIRAGLUTIDE | [facility] | + + + + | 2022-09-11 00:00 | 24 HR fluvoxamine maleate | [facility] | | | 100 MG Extended Release | | | | Oral Capsule | | + + + + | 2022-05-01 00:00 | FLUVOXAMINE MALEATE | [facility] | + + + + | 2022-05-27 00:00 | FLUVOXAMINE MALEATE | [facility] | + + + + | 2022-08-26 00:00 | FLUVOXAMINE MALEATE | [facility] | + + + + | 2022-09-21 00:00 | FLUVOXAMINE MALEATE | [facility] | + + + + | 2022-09-23 00:00 | FLUVOXAMINE MALEATE | [facility] | + + + + | 2022-11-10 00:00 | FLUVOXAMINE MALEATE | [facility] | + + + + | 2022-12-08 00:00 | FLUVOXAMINE MALEATE | [facility] | + + + + | 2022-12-21 00:00 | FLUVOXAMINE MALEATE | [facility] | + + + + | 2023-02-18 00:00 | FLUVOXAMINE MALEATE | [facility] | + + + + | 2023-02-24 00:00 | FLUVOXAMINE MALEATE | [facility] | + + + + | 2023-02-28 00:00 | FLUVOXAMINE MALEATE | [facility] | + + + + | 2022-10-01 00:00 | dicyclomine hydrochloride | [facility] | | | 10 MG Oral Capsule | | + + + + | 2018-10-09 00:00 | PROMETHAZINE HCL | [facility] | + + + + | 2018-10-09 00:00 | PROMETHAZINE HCL | [facility] | + + + + | 2018-10-09 00:00 | PROMETHAZINE HCL | [facility] | + + + + | 2018-10-09 00:00 | PROMETHAZINE HCL | [facility] | + + + + | 2018-10-09 00:00 | PROMETHAZINE HCL | [facility] | + + + + | 2018-10-09 00:00 | PROMETHAZINE HCL | [facility] | + + + + | 2020-08-28 00:00 | PROMETHAZINE HCL | [facility] | + + + + | 2020-08-28 00:00 | PROMETHAZINE HCL | [facility] | + + + + | 2020-08-28 00:00 | PROMETHAZINE HCL | [facility] | + + + + | 2020-08-28 00:00 | PROMETHAZINE HCL | [facility] | + + + + | 2020-08-28 00:00 | PROMETHAZINE HCL | [facility] | + + + + | 2020-08-28 00:00 | PROMETHAZINE HCL | [facility] | + + + + | 2022-09-11 00:00 | promethazine hydrochloride | [facility] | | | 25 MG Oral Tablet | | + + + + | 2015-08-17 00:00 | PROMETHAZINE HCL | [facility] | + + + + | 2015-08-17 00:00 | PROMETHAZINE HCL | [facility] | + + + + | 2015-08-17 00:00 | PROMETHAZINE HCL | [facility] | + + + + | 2015-08-17 00:00 | PROMETHAZINE HCL | [facility] | + + + + | 2015-08-17 00:00 | PROMETHAZINE HCL | [facility] | + + + + | 2015-08-17 00:00 | PROMETHAZINE HCL | [facility] | + + + + | 2022-05-01 00:00 | buPROPion HCL | [facility] | + + + + | 2022-05-27 00:00 | buPROPion HCL | [facility] | + + + + | 2022-08-26 00:00 | buPROPion HCL | [facility] | + + + + | 2022-09-21 00:00 | buPROPion HCL | [facility] | + + + + | 2022-09-23 00:00 | buPROPion HCL | [facility] | + + + + | 2022-11-10 00:00 | buPROPion HCL | [facility] | + + + + | 2022-12-08 00:00 | buPROPion HCL | [facility] | + + + + | 2022-12-21 00:00 | buPROPion HCL | [facility] | + + + + | 2023-02-18 00:00 | buPROPion HCL | [facility] | + + + + | 2023-02-24 00:00 | buPROPion HCL | [facility] | + + + + | 2023-02-28 00:00 | buPROPion HCL | [facility] | + + + + | 2021-03-23 00:00 | hydrOXYzine HCL | [facility] | + + + + | 2021-03-23 00:00 | hydrOXYzine HCL | [facility] | + + + + | 2021-03-23 00:00 | hydrOXYzine HCL | [facility] | + + + + | 2021-03-23 00:00 | hydrOXYzine HCL | [facility] | + + + + | 2021-03-23 00:00 | hydrOXYzine HCL | [facility] | + + + + | 2021-03-23 00:00 | hydrOXYzine HCL | [facility] | + + + + | 2022-05-01 00:00 | MECLIZINE HCL | [facility] | + + + + | 2022-05-27 00:00 | MECLIZINE HCL | [facility] | + + + + | 2022-08-26 00:00 | MECLIZINE HCL | [facility] | + + + + | 2022-09-21 00:00 | MECLIZINE HCL | [facility] | + + + + | 2022-09-11 00:00 | meclizine hydrochloride 25 | [facility] | | | MG Oral Tablet | | + + + + | 2015-04-07 00:00 | GUAIFENESIN/CODEINE | [facility] | | | PHOSPHATE | | + + + + | 2015-04-07 00:00 | GUAIFENESIN/CODEINE | [facility] | | | PHOSPHATE | | + + + + | 2015-04-07 00:00 | GUAIFENESIN/CODEINE | [facility] | | | PHOSPHATE | | + + + + | 2015-04-07 00:00 | GUAIFENESIN/CODEINE | [facility] | | | PHOSPHATE | | + + + + | 2015-04-07 00:00 | GUAIFENESIN/CODEINE | [facility] | | | PHOSPHATE | | + + + + | 2015-04-07 00:00 | GUAIFENESIN/CODEINE | [facility] | | | PHOSPHATE | | + + + + | 2022-09-11 00:00 | Vitamin D 5000IU Oral | [facility] | | | Capsule | | + + + + Problems + + + + | date | description | facility | + + + + | 2014-05-24 00:00 | Anemia | [facility] | + + + + | 2014-05-24 00:00 | Anemia | [facility] | + + + + | 2014-05-24 00:00 | Anemia | [facility] | + + + + | 2014-05-24 00:00 | Anemia | [facility] | + + + + | 2014-05-24 00:00 | Anemia | [facility] | + + + + | 2014-05-24 00:00 | Anemia | [facility] | + + + + | 2014-05-24 00:00 | Somnolence | [facility] | + + + + | 2014-05-24 00:00 | Somnolence | [facility] | + + + + | 2014-05-24 00:00 | Somnolence | [facility] | + + + + | 2014-05-24 00:00 | Somnolence | [facility] | + + + + | 2014-05-24 00:00 | Somnolence | [facility] | + + + + | 2014-05-24 00:00 | Somnolence | [facility] | + + + + | 2014-05-24 00:00 | Dizziness | [facility] | + + + + | 2014-05-24 00:00 | Dizziness | [facility] | + + + + | 2014-05-24 00:00 | Dizziness | [facility] | + + + + | 2014-05-24 00:00 | Dizziness | [facility] | + + + + | 2014-05-24 00:00 | Dizziness | [facility] | + + + + | 2014-05-24 00:00 | Dizziness | [facility] | + + + + | 2014-05-27 00:00 | Abdominal pain | [facility] | + + + + | 2014-05-27 00:00 | Abdominal pain | [facility] | + + + + | 2014-05-27 00:00 | Abdominal pain | [facility] | + + + + | 2014-05-27 00:00 | Abdominal pain | [facility] | + + + + | 2014-05-27 00:00 | Abdominal pain | [facility] | + + + + | 2014-05-27 00:00 | Abdominal pain | [facility] | + + + + | 2014-09-29 00:00 | Sinusitis | [facility] | + + + + | 2014-09-29 00:00 | Sinusitis | [facility] | + + + + | 2014-09-29 00:00 | Sinusitis | [facility] | + + + + | 2014-09-29 00:00 | Sinusitis | [facility] | + + + + | 2014-09-29 00:00 | Sinusitis | [facility] | + + + + | 2014-09-29 00:00 | Sinusitis | [facility] | + + + + | 2014-09-29 00:00 | Headache | [facility] | + + + + | 2014-09-29 00:00 | Headache | [facility] | + + + + | 2014-09-29 00:00 | Headache | [facility] | + + + + | 2014-09-29 00:00 | Headache | [facility] | + + + + | 2014-09-29 00:00 | Headache | [facility] | + + + + | 2014-09-29 00:00 | Headache | [facility] | + + + + | 2015-08-17 00:00 | Acute streptococcal | [facility] | | | pharyngitis | | + + + + | 2015-08-17 00:00 | Acute streptococcal | [facility] | | | pharyngitis | | + + + + | 2015-08-17 00:00 | Acute streptococcal | [facility] | | | pharyngitis | | + + + + | 2015-08-17 00:00 | Acute streptococcal | [facility] | | | pharyngitis | | + + + + | 2015-08-17 00:00 | Acute streptococcal | [facility] | | | pharyngitis | | + + + + | 2015-08-17 00:00 | Acute streptococcal | [facility] | | | pharyngitis | | + + + + | 2015-08-17 00:00 | Vomiting and diarrhea | [facility] | + + + + | 2015-08-17 00:00 | Vomiting and diarrhea | [facility] | + + + + | 2015-08-17 00:00 | Vomiting and diarrhea | [facility] | + + + + | 2015-08-17 00:00 | Vomiting and diarrhea | [facility] | + + + + | 2015-08-17 00:00 | Vomiting and diarrhea | [facility] | + + + + | 2015-08-17 00:00 | Vomiting and diarrhea | [facility] | + + + + | 2015-09-03 00:00 | Cough | [facility] | + + + + | 2015-09-03 00:00 | Cough | [facility] | + + + + | 2015-09-03 00:00 | Cough | [facility] | + + + + | 2015-09-03 00:00 | Cough | [facility] | + + + + | 2015-09-03 00:00 | Cough | [facility] | + + + + | 2015-09-03 00:00 | Cough | [facility] | + + + + | 2015-09-03 00:00 | Vomiting | [facility] | + + + + | 2015-09-03 00:00 | Vomiting | [facility] | + + + + | 2015-09-03 00:00 | Vomiting | [facility] | + + + + | 2015-09-03 00:00 | Vomiting | [facility] | + + + + | 2015-09-03 00:00 | Vomiting | [facility] | + + + + | 2015-09-03 00:00 | Vomiting | [facility] | + + + + | 2015-11-21 00:00 | Pneumonia | [facility] | + + + + | 2015-11-21 00:00 | Pneumonia | [facility] | + + + + | 2015-11-21 00:00 | Pneumonia | [facility] | + + + + | 2015-11-21 00:00 | Pneumonia | [facility] | + + + + | 2015-11-21 00:00 | Pneumonia | [facility] | + + + + | 2015-11-21 00:00 | Pneumonia | [facility] | + + + + | 2018-08-02 00:00 | Encounter for medical | [facility] | | | screening examination | | + + + + | 2018-08-02 00:00 | Encounter for medical | [facility] | | | screening examination | | + + + + | 2018-08-02 00:00 | Encounter for medical | [facility] | | | screening examination | | + + + + | 2018-08-02 00:00 | Encounter for medical | [facility] | | | screening examination | | + + + + | 2018-08-02 00:00 | Encounter for medical | [facility] | | | screening examination | | + + + + | 2018-08-02 00:00 | Encounter for medical | [facility] | | | screening examination | | + + + + | 2018-10-11 00:00 | Abscess | [facility] | + + + + | 2018-10-11 00:00 | Abscess | [facility] | + + + + | 2018-10-11 00:00 | Abscess | [facility] | + + + + | 2018-10-11 00:00 | Abscess | [facility] | + + + + | 2018-10-11 00:00 | Abscess | [facility] | + + + + | 2018-10-11 00:00 | Abscess | [facility] | + + + + | 2019-11-09 00:00 | Toothache | [facility] | + + + + | 2019-11-09 00:00 | Toothache | [facility] | + + + + | 2019-11-09 00:00 | Toothache | [facility] | + + + + | 2019-11-09 00:00 | Toothache | [facility] | + + + + 2019-11-09 00:00 | Toothache | [facility] | + + + + 2019-11-09 00:00 | Toothache | [facility] | + + + + | 2019-11-09 00:00 | Adverse effect of drug | [facility] | + + + + | 2019-11-09 00:00 | Adverse effect of drug | [facility] | + + + + | 2019-11-09 00:00 | Adverse effect of drug | [facility] | + + + + | 2019-11-09 00:00 | Adverse effect of drug | [facility] | + + + + 2019-11-09 00:00 | Adverse effect of drug | [facility] | + + + + | 2019-11-09 00:00 | Adverse effect of drug | [facility] | + + + + | 2020-06-09 00:00 | Hypoglycemia associated | [facility] | | | with type 2 diabetes | | | | mellitus | | + + + + | 2020-06-09 00:00 | Hypoglycemia associated | [facility] | | | with type 2 diabetes | | | | mellitus | | + + + + | 2020-06-09 00:00 | Hypoglycemia associated | [facility] | | | with type 2 diabetes | | | | mellitus | | + + + + | 2020-06-09 00:00 | Hypoglycemia associated | [facility] | | | with type 2 diabetes | | | | mellitus | | + + + + | 2020-06-09 00:00 | Hypoglycemia associated | [facility] | | | with type 2 diabetes | | | | mellitus | | + + + + | 2020-06-09 00:00 | Hypoglycemia associated | [facility] | | | with type 2 diabetes | | | | mellitus | | + + + + | 2020-08-28 00:00 | Contusion of abdominal | [facility] | | | wall | | + + + + | 2020-08-28 00:00 | Contusion of abdominal | [facility] | | | wall | | + + + + | 2020-08-28 00:00 | Contusion of abdominal | [facility] | | | wall | | + + + + | 2020-08-28 00:00 | Contusion of abdominal | [facility] | | | wall | | + + + + | 2020-08-28 00:00 | Contusion of abdominal | [facility] | | | wall | | + + + + | 2020-08-28 00:00 | Contusion of abdominal | [facility] | | | wall | | + + + + | 2020-10-09 00:00 | Migraine headache | [facility] | + + + + | 2020-10-09 00:00 | Migraine headache | [facility] | + + + + | 2020-10-09 00:00 | Migraine headache | [facility] | + + + + | 2020-10-09 00:00 | Migraine headache | [facility] | + + + + | 2020-10-09 00:00 | Migraine headache | [facility] | + + + + | 2020-10-09 00:00 | Migraine headache | [facility] | + + + + | 2021-03-23 00:00 | Urticaria | [facility] | + + + + | 2021-03-23 00:00 | Urticaria | [facility] | + + + + | 2021-03-23 00:00 | Urticaria | [facility] | + + + + | 2021-03-23 00:00 | Urticaria | [facility] | + + + + | 2021-03-23 00:00 | Urticaria | [facility] | + + + + | 2021-03-23 00:00 | Urticaria | [facility] | + + + + | 2021-03-23 00:00 | Nausea and vomiting | [facility] | + + + + | 2021-03-23 00:00 | Nausea and vomiting | [facility] | + + + + | 2021-03-23 00:00 | Nausea and vomiting | [facility] | + + + + | 2021-03-23 00:00 | Nausea and vomiting | [facility] | + + + + | 2021-03-23 00:00 | Nausea and vomiting | [facility] | + + + + | 2021-03-23 00:00 | Nausea and vomiting | [facility] | + + + + | 2021-05-20 00:00 | Closed fracture of left | [facility] | | | ankle | | + + + + | 2021-05-20 00:00 | Closed fracture of left | [facility] | | | ankle | | + + + + | 2021-05-20 00:00 | Closed fracture of left | [facility] | | | ankle | | + + + + | 2021-05-20 00:00 | Closed fracture of left | [facility] | | | ankle | | + + + + | 2021-05-20 00:00 | Closed fracture of left | [facility] | | | ankle | | + + + + | 2021-05-20 00:00 | Closed fracture of left | [facility] | | | ankle | | + + + + | 2021-06-06 00:00 | Left ankle pain | [facility] | + + + + | 2021-06-06 00:00 | Left ankle pain | [facility] | + + + + | 2021-06-06 00:00 | Left ankle pain | [facility] | + + + + | 2021-06-06 00:00 | Left ankle pain | [facility] | + + + + | 2021-06-06 00:00 | Left ankle pain | [facility] | + + + + | 2021-06-06 00:00 | Left ankle pain | [facility] | + + + + | 2021-06-06 00:00 | Infection due to severe | [facility] | | | acute respiratory syndrome | | | | coronavirus 2 (SARS-CoV-2) | | + + + + | 2021-06-06 00:00 | Infection due to severe | [facility] | | | acute respiratory syndrome | | | | coronavirus 2 (SARS-CoV-2) | | + + + + | 2021-06-06 00:00 | Infection due to severe | [facility] | | | acute respiratory syndrome | | | | coronavirus 2 (SARS-CoV-2) | | + + + + | 2021-06-06 00:00 | Infection due to severe | [facility] | | | acute respiratory syndrome | | | | coronavirus 2 (SARS-CoV-2) | | + + + + | 2021-06-06 00:00 | Infection due to severe | [facility] | | | acute respiratory syndrome | | | | coronavirus 2 (SARS-CoV-2) | | + + + + | 2021-06-06 00:00 | Infection due to severe | [facility] | | | acute respiratory syndrome | | | | coronavirus 2 (SARS-CoV-2) | | + + + + | 2021-09-16 00:00 | Fabry's disease | [facility] | + + + + | 2021-09-16 00:00 | Fabry's disease | [facility] | + + + + | 2021-09-16 00:00 | Fabry's disease | [facility] | + + + + | 2021-09-16 00:00 | Fabry's disease | [facility] | + + + + | 2021-09-16 00:00 | Fabry's disease | [facility] | + + + + | 2021-09-16 00:00 | Fabry's disease | [facility] | + + + + | 2021-09-16 00:00 | Pain of left upper | [facility] | | | extremity | | + + + + | 2021-09-16 00:00 | Pain of left upper | [facility] | | | extremity | | + + + + | 2021-09-16 00:00 | Pain of left upper | [facility] | | | extremity | | + + + + | 2021-09-16 00:00 | Pain of left upper | [facility] | | | extremity | | + + + + | 2021-09-16 00:00 | Pain of left upper | [facility] | | | extremity | | + + + + | 2021-09-16 00:00 | Pain of left upper | [facility] | | | extremity | | + + + + | 2021-11-15 00:00 | Patient left without being | [facility] | | | seen | | + + + + | 2021-11-15 00:00 | Patient left without being | [facility] | | | seen | | + + + + | 2021-11-15 00:00 | Patient left without being | [facility] | | | seen | | + + + + | 2021-11-15 00:00 | Patient left without being | [facility] | | | seen | | + + + + | 2021-11-15 00:00 | Patient left without being | [facility] | | | seen | | + + + + | 2021-11-15 00:00 | Patient left without being | [facility] | | | seen | | + + + + | 2022-02-03 19:56 | Type 2 diabetes mellitus | [facility] | | | without complications [facility] [employer] | + + + + | 2022-02-03 19:56 | Depression, unspecified | [facility] | | | | [employer] | + + + + | 2022-02-03 19:56 | Essential (primary) | [facility] | | | hypertension | [employer] | + + + + | 2022-02-03 19:56 | Rheumatoid arthritis, | [facility] | | | unspecified | [employer] | + + + + | 2022-02-03 19:56 | Pain in left wrist | [facility] | | | | [employer] | + + + + | 2022-02-03 19:56 | 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) | [facility] | | | 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 | [employer] | + + + + | 2022-02-03 19:56 | Allergy status to | [facility] | | | penicillin | [employer] | + + + + | 2022-02-03 19:56 | Allergy status to other | [facility] | | | antibiotic agents | [employer] | + + + + | 2022-02-03 19:56 | Allergy status to | [facility] | | | sulfonamides | [employer] | + + + + | 2022-02-03 19:56 | Allergy status to other | [facility] | | | drugs, medicaments and | [employer] | | | biological substances | | + + + + | 2022-02-05 00:00 | Flare of rheumatoid | [facility] | | | arthritis | | + + + + | 2022-02-05 00:00 | Flare of rheumatoid | [facility] | | | arthritis | | + + + + | 2022-02-05 00:00 | Flare of rheumatoid | [facility] | | | arthritis | | + + + + | 2022-02-05 00:00 | Flare of rheumatoid | [facility] | | | arthritis | | + + + + | 2022-02-05 00:00 | Flare of rheumatoid | [facility] | | | arthritis | | + + + + | 2022-02-05 00:00 | Flare of rheumatoid | [facility] | | | arthritis | | + + + + | 2022-02-05 16:21 | Type 2 diabetes mellitus | [facility] | | | without complications | [employer] | + + + + | 2022-02-05 16:21 | Essential (primary) | [facility] | | | hypertension | [employer] | + + + + | 2022-02-05 16:21 | Rheumatoid arthritis, | [facility] | | | unspecified | [employer] | + + + + | 2022-02-05 16:21 | intermediate (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 of | [facility] | | | oral hypoglycemic drugs | [employer] | + + + + | 2022-02-05 16:21 | Other snf (current) | [facility] | | | 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 | [employer] | + + + + | 2022-02-05 16:21 | Allergy status to | [facility] | | | penicillin | [employer] | + + + + | 2022-02-05 16:21 | Allergy status to other | [facility] | | | antibiotic agents | [employer] | + + + + | 2022-02-05 16:21 | Allergy status to | [facility] | | | sulfonamides | [employer] | + + + + | 2022-02-05 16:21 | Allergy status to other | [facility] | | | drugs, medicaments and | [employer] | | | biological substances | | + + + + | 2022-02-23 00:00 | Concussion | [facility] | + + + + | 2022-02-23 00:00 | Concussion | [facility] | + + + + | 2022-02-23 00:00 | Concussion | [facility] | + + + + | 2022-02-23 00:00 | Concussion | [facility] | + + + + | 2022-02-23 00:00 | Concussion | [facility] | + + + + | 2022-02-23 00:00 | Concussion | [facility] | + + + + | 2022-02-23 00:00 | Strain of neck muscle | [facility] | + + + + | 2022-02-23 00:00 | Strain of neck muscle | [facility] | + + + + | 2022-02-23 00:00 | Strain of neck muscle | [facility] | + + + + | 2022-02-23 00:00 | Strain of neck muscle | [facility] | + + + + | 2022-02-23 00:00 | Strain of neck muscle | [facility] | + + + + | 2022-02-23 00:00 | Strain of neck muscle | [facility] | + + + + | 2022-02-23 10:24 | Type 2 diabetes mellitus | [facility] | | | without complications | [employer] | + + + + | 2022-02-23 10:24 | Essential (primary) | [facility] | | | hypertension | [employer] | + + + + | 2022-02-23 10:24 | Rheumatoid arthritis, | [facility] | | | unspecified | [employer] | + + + + | 2022-02-23 10:24 | Effusion, right knee | [facility] | | | | [employer] | + + + + | 2022-02-23 10:24 | Cervicalgia | [facility] | | | | [employer] | + + + + | 2022-02-23 10:24 | Concussion without loss of | [facility] | | | consciousness, initial | [employer] | | | encounter | | + + + + | 2022-02-23 10:24 | Fall (on) (from) | [facility] | | | unspecified stairs and | [employer] | | | steps, initial encounter | | + + + + | 2022-02-23 10:24 | Unspecified place or not | [facility] | | | applicable | [employer] | + + + + | 2022-02-23 10:24 | intermediate (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 of | [facility] | | | insulin | [employer] | + + + + | 2022-02-23 10:24 | Other snf (current) | [facility] | | | 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 | [employer] | + + + + | 2022-02-23 10:24 | Allergy status to other | [facility] | | | antibiotic agents | [employer] | + + + + | 2022-02-23 10:24 | Allergy status to | [facility] | | | sulfonamides | [employer] | + + + + | 2022-02-23 10:24 | Allergy status to other | [facility] | | | drugs, medicaments and | [employer] | | | biological substances | | + + + + | 2022-05-27 00:00 | Contusion of right wrist | [facility] | + + + + | 2022-05-27 00:00 | Contusion of right wrist | [facility] | + + + + | 2022-05-27 00:00 | Contusion of right wrist | [facility] | + + + + | 2022-05-27 00:00 | Contusion of right wrist | [facility] | + + + + | 2022-05-27 00:00 | Contusion of right wrist | [facility] | + + + + | 2022-09-10 00:00 | Antiphospholipid syndrome | [facility] | | | (disorder) | | + + + + | 2022-09-10 00:00 | HYPERCOAGULABLE STATE | [facility] | | | | | + + + + | 2022-09-10 00:00 | Antiphospholipid Antibody | [facility] 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 | | + + + + | 2022-09-21 00:00 | Intertriginous candidiasis | [facility] | | | | | + + + + | 2022-09-21 00:00 | Intertriginous candidiasis | [facility] | | | | | + + + + | 2022-09-21 00:00 | Intertriginous candidiasis | [facility] | | | | | + + + + | 2022-09-21 00:00 | Viral respiratory | [facility] | | | infection | | + + + + | 2022-09-21 00:00 | Viral respiratory | [facility] | | | infection | | + + + + | 2022-09-21 00:00 | Viral respiratory | [facility] | | | infection | | + + + + | 2022-09-23 00:00 | Lona-Calderon tear | [facility] | + + + + | 2022-09-23 00:00 | Lona-Calderon tear | [facility] | + + + + | 2022-09-23 00:00 | Lona-Calderon tear | [facility] | + + + + | 2022-09-23 00:00 | Gastritis | [facility] | + + + + | 2022-09-23 00:00 | Gastritis | [facility] | + + + + | 2022-09-23 00:00 | Gastritis | [facility] | + + + + | 2022-09-23 00:00 | Rectal hemorrhage | [facility] | + + + + | 2022-09-23 00:00 | Rectal hemorrhage | [facility] | + + + + | 2022-09-23 00:00 | Rectal hemorrhage | [facility] | + + + + | 2022-10-02 00:00 | Gerd | [facility] | | | | | + + + + | 2022-10-02 00:00 | Bipolar disorder | [facility] | | | (disorder) | | + + + + | 2022-10-02 00:00 | Obsessive-compulsive | [facility] | | | disorder (disorder) | | + + + + | 2022-10-02 00:00 | Insomnia (disorder) | [facility] | | | | | + + + + | 2022-10-02 00:00 | Generalized anxiety | [facility] | | | disorder (disorder) | | + + + + | 2022-10-02 00:00 | DM II CONTROLLED | [facility] | | | | | + + + + | 2022-10-02 00:00 | DIABETES W/NEUROLOGICAL | [facility] Jermey PRADHAN. | | | MANIFESTATIONS,TYPEII | | + + + + | 2022-10-02 00:00 | Vitamin Deficiency | [facility]. | | | | | + + + + | 2022-10-02 00:00 | BIPOLAR DISORDER | [facility] | | | UNSPECIFIED | | + + + + | 2022-10-02 00:00 | ANXIETY GENERALIZED | [facility]. | | | | | + + + + | 2022-10-02 00:00 | Migraine Headache | [facility] | | | | | + + + + | 2022-10-02 00:00 | Obsessive Compulsive | [facility] | | | Disorder | | + + + + | 2022-10-02 00:00 | Migraine (disorder) | [facility] | | | | | + + + + | 2022-10-02 00:00 | Diabetes mellitus type 2 | [facility] | | | (disorder) | | + + + + | 2022-10-02 00:00 | History of bypass of | Abdul[facility]iz [facility]AD[facility]. | | | stomach (situation) | | + + + + | 2022-10-02 00:00 | INSOMNIA | Jeremy [facility]. 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 | | | (disorder) | | + + + + | 2022-10-02 00:00 | Diabetes Mellitus Type 2 | [facility] | | | with Diabetic Neuropathic | | | | Arthropathy | | + + + + | 2022-10-02 00:00 | Diabetes Mellitus Type 2 | [facility] | | | | | + + + + | 2022-10-02 00:00 | Bipolar Disorder Nos | [facility] | | | | | + + + + | 2022-10-02 00:00 | Generalized Anxiety | [facility] | | | Disorder | | + + + + | 2022-10-02 00:00 | Sleep Disorder Insomnia | [facility] Jeremy PRADHAN. | | | | | + + + + | 2022-10-02 00:00 | status post gastric bypass | [facility] Jeremy PRADHAN. | | | | | + + + + | 2022-10-02 00:00 | Postsurgical Status | [facility] Jeremy VELAZQUEZ. | | | Post-gastric Bypass For | | | | Obesity | | + + + + | 2022-11-10 00:00 | Sprain of knee | [facility] | + + + + | 2022-11-10 00:00 | Sprain of knee | [facility] | + + + + | 2022-11-10 00:00 | Sprain of knee | [facility] | + + + + | 2022-11-10 00:00 | Contusion of foot | [facility] | + + + + | 2022-11-10 00:00 | Contusion of foot | [facility] | + + + + | 2022-11-10 00:00 | Contusion of foot | [facility] | + + + + | 2022-11-10 00:00 | Sprain of ankle | [facility] | + + + + | 2022-11-10 00:00 | Sprain of ankle | [facility] | + + + + | 2022-11-10 00:00 | Sprain of ankle | [facility] | + + + + | 2022-12-21 00:00 | Sprain of left ankle | [facility] | + + + + | 2022-12-21 00:00 | Sprain of left ankle | [facility] | + + + + | 2022-12-21 00:00 | Sprain of left ankle | [facility] | + + + + | 2023-02-18 00:00 | Combined abdominal pain, | [facility] | | | vomiting, and diarrhea | | + + + + | 2023-02-18 00:00 | Combined abdominal pain, | [facility] | | | vomiting, and diarrhea | | + + + + | 2023-02-18 08:43 | TYPE 2 DIABETES MELLITUS | [facility] | | | WITHOUT COMPLICATIONS | | + + + + | 2023-02-18 08:43 | FABRY (-DANNIELLE) DISEASE | [facility] | + + + + | 2023-02-18 08:43 | Essential (primary) | [facility] | | | hypertension | | + + + + | 2023-02-18 08:43 | UNSPECIFIED ABDOMINAL PAIN | [facility] | | | | | + + + + | 2023-02-18 08:43 | VOMITING, UNSPECIFIED | [facility] | + + + + | 2023-02-18 08:43 | DIARRHEA, UNSPECIFIED | [facility] | + + + + | 2023-02-18 08:43 | JAIL (CURRENT) USE OF | [facility] | | | ORAL HYPOGLYCEMIC DRUGS | | + + + + | 2023-02-18 08:43 | OTHER JAIL (CURRENT) | [facility] | | | DRUG THERAPY | | + + + + | 2023-02-18 08:43 | ALLERGY STATUS TO | [facility] | | | PENICILLIN | | + + + + | 2023-02-18 08:43 | ALLERGY STATUS TO OTHER | [facility] | | | ANTIBIOTIC AGENTS STATUS | | + + + + | 2023-02-18 08:43 | ALLERGY STATUS TO | [facility] | | | SULFONAMIDES STATUS | | + + + + | 2023-02-18 08:43 | ALLERGY STATUS TO OTH | [facility] | | | DRUG/MEDS/BIOL SUBST STATUS | | | | | | + + + + | 2023-02-18 08:43 | ACQUIRED ABSENCE OF OTHER | [facility] | | | SPECIFIED PARTS OF DIGES | | + + + + | 2023-02-18 08:43 | ACQUIRED ABSENCE OF BOTH | [facility] | | | CERVIX AND UTERUS | | + + + + | 2023-02-18 08:43 | BARIATRIC SURGERY STATUS | [facility] | + + + + | 2023-02-24 00:00 | Laceration of hand | [facility] | + + + + | 2023-02-24 00:00 | Laceration of hand | [facility] | + + + + | 2023-02-24 18:49 | TYPE 2 DIABETES MELLITUS | [facility] | | | WITHOUT COMPLICATIONS | | + + + + | 2023-02-24 18:49 | Essential (primary) | [facility] | | | hypertension | | + + + + | 2023-02-24 18:49 | LACERATION WITH FOREIGN | [facility] | | | BODY OF RIGHT HAND, INIT E | | + + + + | 2023-02-24 18:49 | OPEN BITE OF RIGHT HAND, | [facility] | | | INITIAL ENCOUNTER | | + + + + | 2023-02-24 18:49 | BITTEN BY DOG, INITIAL | [facility] | | | ENCOUNTER | | + + + + | 2023-02-24 18:49 | JAIL (CURRENT) USE OF | [facility] | | | ORAL HYPOGLYCEMIC DRUGS | | + + + + | 2023-02-24 18:49 | OTHER PROOFER APPRENTICE (CURRENT) | [facility] | | | DRUG THERAPY | | + + + + | 2023-02-24 18:49 | ALLERGY STATUS TO | [facility] | | | PENICILLIN | | + + + + | 2023-02-24 18:49 | ALLERGY STATUS TO | [facility] | | | SULFONAMIDES STATUS | | + + + + | 2023-02-24 18:49 | ALLERGY STATUS TO OTH | [facility] | | | DRUG/MEDS/BIOL SUBST STATUS | | | | | | + + + + | 2023-02-28 00:00 | Local infection of wound | [facility] | + + + + | 2023-02-28 16:08 | TYPE 2 DIABETES MELLITUS | [facility] | | | WITHOUT COMPLICATIONS | | + + + + | 2023-02-28 16:08 | BIPOLAR DISORDER, | [facility] | | | UNSPECIFIED | | + + + + | 2023-02-28 16:08 | Essential (primary) | [facility] | | | hypertension | | + + + + | 2023-02-28 16:08 | LOCAL INFECTION OF THE | [facility] | | | SKIN AND SUBCUTANEOUS | | | | TISSUE, UNSP | | + + + + | 2023-02-28 16:08 | OPEN BITE OF RIGHT HAND, | [facility] | | | SUBSEQUENT ENCOUNTER | | + + + + | 2023-02-28 16:08 | BITTEN BY DOG, SUBSEQUENT | [facility] | | | ENCOUNTER | | + + + + | 2023-02-28 16:08 | JAIL (CURRENT) USE OF | [facility] | | | ORAL HYPOGLYCEMIC DRUGS | | + + + + | 2023-02-28 16:08 | OTHER PROOFER APPRENTICE (CURRENT) | [facility] | | | DRUG THERAPY | | + + + + | 2023-02-28 16:08 | ALLERGY STATUS TO | [facility] | | | PENICILLIN | | + + + + | 2023-02-28 16:08 | ALLERGY STATUS TO OTHER | [facility] | | | ANTIBIOTIC AGENTS STATUS | | + + + + | 2023-02-28 16:08 | ALLERGY STATUS TO | [facility] | | | SULFONAMIDES STATUS | | + + + + | 2023-02-28 16:08 | ALLERGY STATUS TO OTH | [facility] | | | DRUG/MEDS/BIOL SUBST STATUS | | | | | | + + + + Procedures + + + + | date | description | facility | + + + + | 2022-09-10 00:00 | Other surgery; | [facility] | | | | | + + + + | 2022-09-10 00:00 | Appendectomy | [facility] | | | | | + + + + | 2022-09-10 00:00 | Operation on | [facility]. | | | musculoskeletal system | | | | (procedure) | | + + + + | 2022-09-10 00:00 | section | [facility]. | | | (procedure) | | + + + + | 2022-09-10 00:00 | Hysterectomy (procedure) | [facility]. | | | | | + + + + | 2022-09-10 00:00 | Operative procedure on | Jeremy [facility]. | | | wrist (procedure) | | + + + + | 2022-09-10 00:00 | Wrist Surgery | [facility]. | | | | | + + + + | 2022-09-10 00:00 | Hysterectomy | [facility] | | | | | + + + + | 2022-09-10 00:00 | Section | [facility] | | | | | + + + + | 2022-09-10 00:00 | Orthopedic Surgery | [facility] Jeremy [facility]AD[facility]AN. | | | | | + + + + Results/Labs +--------+--------+ +---------+--------+---------+ | test | date | facility | value | unit | notes | +--------+--------+ +---------+--------+---------+ + + | Result panel 1 | + + + + + + + + + | No Results | (no date) | [facility] | No Results | (missing) | (missing) | | | [facility] | [facility] | | | | + + + + + + + + + | Result panel 2 | + + + + + + + + + | No Results | (no date) | [facility] | No Results | (missing) | (missing) | | | | [facility] | | | | | | | [facility] | | | | + + + + + + + + + | Result panel 3 | + + + + + + + + + | No Results | (no date) | [facility] | No Results | (missing) | (missing) | | | | MEDICAL | | | | | | | Jeremy PRADHAN. | | | | + + + + + + + + + | Result panel 4 | + + + + + +-------+ + + | | 2022-02-23 | [facility] | 7.6 | (missing) | (missing) | | (unavailable | 13:35 | [facility] | | | | + + + +-------+ + + + + | Result panel 5 | + + + + + +--------+ + + | | 2022-02-23 | [facility] | 4.00 | (missing) | (missing) | | (unavailable | 13:35 | [facility] | | | | + + + +--------+ + + + + | Result panel 6 | + + + + + +--------+ + + | | 2022-02-23 | [facility] | 12.2 | (missing) | (missing) | | (unavailable | 13:35 | [facility] | | | | + + + +--------+ + + + + | Result panel 7 | + + + + + +--------+ + + | | 2022-02-23 | [facility] | 36.9 | (missing) | (missing) | | (unavailable | 13:35 | [facility] | | | | + + + +--------+ + + + + | Result panel 8 | + + + + + +--------+ + + | | 2022-02-23 | [facility] | 92.2 | (missing) | (missing) | | (unavailable | 13:35 | [facility] | | | | + + + +--------+ + + + + | Result panel 9 | + + + + + +--------+ + + | | 2022-02-23 | [facility] | 30.4 | (missing) | (missing) | | (unavailable | 13:35 | [facility] | | | | + + + +--------+ + + + + | Result panel 10 | + + + + + +--------+ + + | | 2022-02-23 | [facility] | 33.0 | (missing) | (missing) | | (unavailable | 13:35 | [facility] | | | | + + + +--------+ + + + + | Result panel 11 | + + + + + +--------+ + + | | 2022-02-23 | [facility] | 13.9 | (missing) | (missing) | | (unavailable | 13:35 | [facility] | | | | + + + +--------+ + + + + | Result panel 12 | + + + + + +-------+ + + | | 2022-02-23 | [facility] | 239 | (missing) | (missing) | | (unavailable | 13:35 | [facility] | | | | + + + +-------+ + + + + | Result panel 13 | + + + + + +--------+ + + | | 2022-02-23 | [facility] | 56.3 | (missing) | (missing) | | (unavailable | 13:35 | [facility] | | | | + + + +--------+ + + + + | Result panel 14 | + + + + + +--------+ + + | | 2022-02-23 | [facility] | 35.1 | (missing) | (missing) | | (unavailable | 13:35 | [facility] | | | | + + + +--------+ + + + + | Result panel 15 | + + + + + +-------+ + + | | 2022-02-23 | [facility] | 6.6 | (missing) | (missing) | | (unavailable | 13:35 | [facility] | | | | + + + +-------+ + + + + | Result panel 16 | + + + + + +-------+ + + | | 2022-02-23 | [facility] | 1.4 | (missing) | (missing) | | (unavailable | 13:35 | [facility] | | | | + + + +-------+ + + + + | Result panel 17 | + + + + + +-------+ + + | | 2022-02-23 | [facility] | 0.6 | (missing) | (missing) | | (unavailable | 13:35 | [facility] | | | | + + + +-------+ + + + + | Result panel 18 | + + + + + +-------+---------+ + | | 2022-02-23 | [facility] | 123 | mg/dL | (missing) | | (unavailable | 13:35 | [facility] | | | | + + + +-------+---------+ + + + | Result panel 19 | + + + + + +-----+---------+ + | | 2022-02-23 | [facility] | 7 | mg/dL | (missing) | | (unavailable | 13:35 | [facility] | | | | + + + +-----+---------+ + + + | Result panel 20 | + + + + + +--------+---------+ + | | 2022-02-23 | [facility] | 0.77 | mg/dL | (missing) | | (unavailable | 13:35 | [facility] | | | | + + + +--------+---------+ + + + | Result panel 21 | + + + + + +------+ + + | | 2022-02-23 | [facility] | 98 | (missing) | (missing) | | (unavailable | 13:35 | [facility] | | | | + + + +------+ + + + + | Result panel 22 | + + + + + +--------+ + + | | 2022-02-23 | [facility] | 9.09 | (missing) | (missing) | | (unavailable | 13:35 | [facility] | | | | + + + +--------+ + + + + | Result panel 23 | + + + + + +-------+ + + | | 2022-02-23 | [facility] | 142 | (missing) | (missing) | | (unavailable | 13:35 | [facility] | | | | + + + +-------+ + + + + | Result panel 24 | + + + + + +-------+ + + | | 2022-02-23 | [facility] | 4.2 | (missing) | (missing) | | (unavailable | 13:35 | [facility] | | | | + + + +-------+ + + + + | Result panel 25 | + + + + + +-------+ + + | | 2022-02-23 | [facility] | 105 | (missing) | (missing) | | (unavailable | 13:35 | [facility] | | | | + + + +-------+ + + + + | Result panel 26 | + + + + + +------+ + + | | 2022-02-23 | [facility] | 27 | (missing) | (missing) | | (unavailable | 13:35 | [facility] | | | | + + + +------+ + + + + | Result panel 27 | + + + + + +--------+ + + | | 2022-02-23 | [facility] | 14.2 | (missing) | (missing) | | (unavailable | 13:35 | [facility] | | | | + + + +--------+ + + + + | Result panel 28 | + + + + + +-------+---------+ + | | 2022-02-23 | [facility] | 9.2 | mg/dL | (missing) | | (unavailable | 13:35 | [facility] | | | | + + + +-------+---------+ + + + | Result panel 29 | + + + + + + + + + | | 2022-09-20 | [facility] | NEGATIVE | (missing) | (missing) | | (unavailable | 23:07:08 | [facility] | | | | + + + + + + + + + | Result panel 30 | + + + + + + + + + | | 2022-09-20 | [facility] | NEGATIVE | (missing) | (missing) | | (unavailable | 23:07:08 | [facility] | | | | + + + + + + + + + | Result panel 31 | + + + + + + + + + | | 2022-09-20 | [facility] | NEGATIVE | (missing) | (missing) | | (unavailable | 23:07:08 | [facility] | | | | + + + + + + + + + | Result panel 32 | + + + + + + + + + | | 2022-09-20 | [facility] | NEGATIVE | (missing) | (missing) | | (unavailable | 23:07:08 | [facility] | | | | + + + + + + + + + | Result panel 33 | + + + + + +-------+ + + | | 2022-09-20 | [facility] | 7.4 | (missing) | (missing) | | (unavailable | 23:41:08 | [facility] | | | | + + + +-------+ + + + + | Result panel 34 | + + + + + +--------+ + + | | 2022-09-20 | [facility] | 4.05 | (missing) | (missing) | | (unavailable | 23:41:08 | [facility] | | | | + + + +--------+ + + + + | Result panel 35 | + + + + + +--------+ + + | | 2022-09-20 | [facility] | 11.7 | (missing) | (missing) | | (unavailable | 23:41:08 | [facility] | | | | + + + +--------+ + + + + | Result panel 36 | + + + + + +--------+ + + | | 2022-09-20 | [facility] | 36.7 | (missing) | (missing) | | (unavailable | 23:41:08 | [facility] | | | | + + + +--------+ + + + + | Result panel 37 | + + + + + +--------+ + + | | 2022-09-20 | [facility] | 90.8 | (missing) | (missing) | | (unavailable | 23:41:08 | [facility] | | | | + + + +--------+ + + + + | Result panel 38 | + + + + + +--------+ + + | | 2022-09-20 | [facility] | 28.9 | (missing) | (missing) | | (unavailable | 23:41:08 | [facility] | | | | + + + +--------+ + + + + | Result panel 39 | + + + + + +--------+ + + | | 2022-09-20 | [facility] | 31.9 | (missing) | (missing) | | (unavailable | 23:41:08 | [facility] | | | | + + + +--------+ + + + + | Result panel 40 | + + + + + +--------+ + + | | 2022-09-20 | [facility] | 15.1 | (missing) | (missing) | | (unavailable | 23:41:08 | [facility] | | | | + + + +--------+ + + + + | Result panel 41 | + + + + + +-------+ + + | | 2022-09-20 | [facility] | 315 | (missing) | (missing) | | (unavailable | 23:41:08 | [facility] | | | | + + + +-------+ + + + + | Result panel 42 | + + + + + +--------+ + + | | 2022-09-20 | [facility] | 67.9 | (missing) | (missing) | | (unavailable | 23:41:08 | [facility] | | | | + + + +--------+ + + + + | Result panel 43 | + + + + + +--------+ + + | | 2022-09-20 | [facility] | 25.3 | (missing) | (missing) | | (unavailable | 23:41:08 | [facility] | | | | + + + +--------+ + + + + | Result panel 44 | + + + + + +-------+ + + | | 2022-09-20 | [facility] | 5.5 | (missing) | (missing) | | (unavailable | 23:41:08 | [facility] | | | | + + + +-------+ + + + + | Result panel 45 | + + + + + +-------+ + + | | 2022-09-20 | [facility] | 0.5 | (missing) | (missing) | | (unavailable | 23:41:08 | [facility] | | | | + + + +-------+ + + + + | Result panel 46 | + + + + + +-------+ + + | | 2022-09-20 | [facility] | 0.8 | (missing) | (missing) | | (unavailable | 23:41:08 | [facility] | | | | + + + +-------+ + + + + | Result panel 47 | + + + + + +-------+---------+ + | | 2022-09-20 | [facility] | 145 | mg/dL | (missing) | | (unavailable | 23:41:08 | [facility] | | | | + + + +-------+---------+ + + + | Result panel 48 | + + + + + +------+---------+ + | | 2022-09-20 | [facility] | 10 | mg/dL | (missing) | | (unavailable | 23:41:08 | [facility] | | | | + + + +------+---------+ + + + | Result panel 49 | + + + + + +--------+---------+ + | | 2022-09-20 | [facility] | 1.01 | mg/dL | (missing) | | (unavailable | 23:41:08 | [facility] | | | | + + + +--------+---------+ + + + | Result panel 50 | + + + + + +------+ + + | | 2022-09-20 | [facility] | 71 | (missing) | (missing) | | (unavailable | 23:41:08 | [facility] | | | | + + + +------+ + + + + | Result panel 51 | + + + + + +--------+ + + | | 2022-09-20 | [facility] | 9.90 | (missing) | (missing) | | (unavailable | 23:41:08 | [facility] | | | | + + + +--------+ + + + + | Result panel 52 | + + + + + +-------+ + + | | 2022-09-20 | [facility] | 138 | (missing) | (missing) | | (unavailable | 23:41:08 | [facility] | | | | + + + +-------+ + + + + | Result panel 53 | + + + + + +-------+ + + | | 2022-09-20 | [facility] | 4.1 | (missing) | (missing) | | (unavailable | 23:41:08 | [facility] | | | | + + + +-------+ + + + + | Result panel 54 | + + + + + +-------+ + + | | 2022-09-20 | [facility] | 102 | (missing) | (missing) | | (unavailable | 23:41:08 | [facility] | | | | + + + +-------+ + + + + | Result panel 55 | + + + + + +------+ + + | | 2022-09-20 | [facility] | 22 | (missing) | (missing) | | (unavailable | 23:41:08 | [facility] | | | | + + + +------+ + + + + | Result panel 56 | + + + + + +--------+ + + | | 2022-09-20 | [facility] | 18.1 | (missing) | (missing) | | (unavailable | 23:41:08 | [facility] | | | | + + + +--------+ + + + + | Result panel 57 | + + + + + +-------+---------+ + | | 2022-09-20 | [facility] | 8.8 | mg/dL | (missing) | | (unavailable | 23:41:08 | [facility] | | | | + + + +-------+---------+ + + + | Result panel 58 | + + + + + +-------+ + + | | 2022-09-20 | [facility] | 7.6 | (missing) | (missing) | | (unavailable | 23:41:08 | [facility] | | | | + + + +-------+ + + + + | Result panel 59 | + + + + + +-------+ + + | | 2022-09-20 | [facility] | 3.6 | (missing) | (missing) | | (unavailable | 23:41:08 | [facility] | | | | + + + +-------+ + + + + | Result panel 60 | + + + + + +-------+ + + | | 2022-09-20 | [facility] | 4.0 | (missing) | (missing) | | (unavailable | 23:41:08 | [facility] | | | | + + + +-------+ + + + + | Result panel 61 | + + + + + +--------+ + + | | 2022-09-20 | [facility] | 0.90 | (missing) | (missing) | | (unavailable | 23:41:08 [facility] | | | | + + + +--------+ + + + + | Result panel 62 | + + + + + +-------+ + + | | 2022-09-20 | [facility] | 0.2 | (missing) | (missing) | | (unavailable | 23:41:08 [facility] | | | | + + + +-------+ + + + + | Result panel 63 | + + + + + +------+ + + | | 2022-09-20 | [facility] | 21 | (missing) | (missing) | | (unavailable | 23:41:08 | [facility] | | | | + + + +------+ + + + + | Result panel 64 | + + + + + +------+ + + | | 2022-09-20 | [facility] | 28 | (missing) | (missing) | | (unavailable | 23:41:08 | [facility] | | | | + + + +------+ + + + + | Result panel 65 | + + + + + +-------+ + + | | 2022-09-20 | [facility] | 131 | (missing) | (missing) | | (unavailable | 23:41:08 | [facility] | | | | + + + +-------+ + + + + | Result panel 66 | + + + + + +-------+ + + | | 2022-09-23 | [facility] | 7.3 | (missing) | (missing) | | (unavailable | 19:24:08 | [facility] | | | | + + + +-------+ + + + + | Result panel 67 | + + + + + +--------+ + + | | 2022-09-23 | [facility] | 4.10 | (missing) | (missing) | | (unavailable | 19:24:08 | [facility] | | | | + + + +--------+ + + + + | Result panel 68 | + + + + + +--------+ + + | | 2022-09-23 | [facility] | 12.0 | (missing) | (missing) | | (unavailable | 19:24:08 | [facility] | | | | + + + +--------+ + + + + | Result panel 69 | + + + + + +--------+ + + | | 2022-09-23 | [facility] | 37.2 | (missing) | (missing) | | (unavailable | 19:24:08 | [facility] | | | | + + + +--------+ + + + + | Result panel 70 | + + + + + +--------+ + + | | 2022-09-23 | [facility] | 90.8 | (missing) | (missing) | | (unavailable | 19:24:08 | [facility] | | | | + + + +--------+ + + + + | Result panel 71 | + + + + + +--------+ + + | | 2022-09-23 | [facility] | 29.4 | (missing) | (missing) | | (unavailable | 19:24:08 | [facility] | | | | + + + +--------+ + + + + | Result panel 72 | + + + + + +--------+ + + | | 2022-09-23 | [facility] | 32.4 | (missing) | (missing) | | (unavailable | 19:24:08 | [facility] | | | | + + + +--------+ + + + + | Result panel 73 | + + + + + +--------+ + + | | 2022-09-23 | [facility] | 15.3 | (missing) | (missing) | | (unavailable | 19:24:08 | [facility] | | | | + + + +--------+ + + + + | Result panel 74 | + + + + + +-------+ + + | | 2022-09-23 | [facility] | 309 | (missing) | (missing) | | (unavailable | 19:24:08 | [facility] | | | | + + + +-------+ + + + + | Result panel 75 | + + + + + +--------+ + + | | 2022-09-23 | [facility] | 53.3 | (missing) | (missing) | | (unavailable | 19:24:08 | [facility] | | | | + + + +--------+ + + + + | Result panel 76 | + + + + + +--------+ + + | | 2022-09-23 | [facility] | 36.1 | (missing) | (missing) | | (unavailable | :08 | [facility] | | | | + + + +--------+ + + + + | Result panel 77 | + + + + + +-------+ + + | | 2022-09-23 | [facility] | 8.2 | (missing) | (missing) | | (unavailable | :24:08 | [facility] | | | | + + + +-------+ + + + + | Result panel 78 | + + + + + +-------+ + + | | 2022-09-23 | [facility] | 1.9 | (missing) | (missing) | | (unavailable | 19:24:08 | [facility] | | | | + + + +-------+ + + + + | Result panel 79 | + + + + + +-------+ + + | | 2022-09-23 | [facility] | 0.5 | (missing) | (missing) | | (unavailable | 19:24:08 | [facility] | | | | + + + +-------+ + + + + | Result panel 80 | + + + + + +-------+---------+ + | | 2022-09-23 | [facility] | 126 | mg/dL | (missing) | | (unavailable | 19:24:08 | [facility] | | | | + + + +-------+---------+ + + + | Result panel 81 | + + + + + +-----+---------+ + | | 2022-09-23 | [facility] | 7 | mg/dL | (missing) | | (unavailable | 19:24:08 | [facility] | | | | + + + +-----+---------+ + + + | Result panel 82 | + + + + + +--------+---------+ + | | 2022-09-23 | [facility] | 0.80 | mg/dL | (missing) | | (unavailable | 19:24:08 | [facility] | | | | + + + +--------+---------+ + + + | Result panel 83 | + + + + + +------+ + + | | 2022-09-23 | [facility] | 94 | (missing) | (missing) | | (unavailable | 19:24:08 | [facility] | | | | + + + +------+ + + + + | Result panel 84 | + + + + + +--------+ + + | | 2022-09-23 | [facility] | 8.75 | (missing) | (missing) | | (unavailable | 19:24:08 | [facility] | | | | + + + +--------+ + + + + | Result panel 85 | + + + + + +-------+ + + | | 2022-09-23 | [facility] | 138 | (missing) | (missing) | | (unavailable | 19:24:08 | [facility] | | | | + + + +-------+ + + + + | Result panel 86 | + + + + + +-------+ + + | | 2022-09-23 | [facility] | 3.9 | (missing) | (missing) | | (unavailable | 19:24:08 | [facility] | | | | + + + +-------+ + + + + | Result panel 87 | + + + + + +-------+ + + | | 2022-09-23 | [facility] | 102 | (missing) | (missing) | | (unavailable | 19:24:08 | [facility] | | | | + + + +-------+ + + + + | Result panel 88 | + + + + + +------+ + + | | 2022-09-23 | [facility] | 30 | (missing) | (missing) | | (unavailable | 19:24:08 | [facility] | | | | + + + +------+ + + + + | Result panel 89 | + + + + + +-------+ + + | | 2022-09-23 | [facility] | 9.9 | (missing) | (missing) | | (unavailable | 19:24:08 | [facility] | | | | + + + +-------+ + + + + | Result panel 90 | + + + + + +-------+---------+ + | | 2022-09-23 | [facility] | 9.0 | mg/dL | (missing) | | (unavailable | 19:24:08 | [facility] | | | | + + + +-------+---------+ + + + | Result panel 91 | + + + + + +-------+ + + | | 2022-09-23 | [facility] | 7.6 | (missing) | (missing) | | (unavailable | 19:24:08 | [facility] | | | | + + + +-------+ + + + + | Result panel 92 | + + + + + +-------+ + + | | 2022-09-23 | [facility] | 3.6 | (missing) | (missing) | | (unavailable | 19:24:08 | [facility] | | | | + + + +-------+ + + + + | Result panel 93 | + + + + + +-------+ + + | | 2022-09-23 | [facility] | 4.0 | (missing) | (missing) | | (unavailable | 19:24:08 | [facility] | | | | + + + +-------+ + + + + | Result panel 94 | + + + + + +--------+ + + | | 2022-09-23 | [facility] | 0.90 | (missing) | (missing) | | (unavailable | 19:24:08 | [facility] | | | | + + + +--------+ + + + + | Result panel 95 | + + + + + +-------+ + + | | 2022-09-23 | [facility] | 0.2 | (missing) | (missing) | | (unavailable | 19:24:08 | [facility] | | | | + + + +-------+ + + + + | Result panel 96 | + + + + + +------+ + + | | 2022-09-23 | [facility] | 31 | (missing) | (missing) | | (unavailable | 19:24:08 | [facility] | | | | + + + +------+ + + + + | Result panel 97 | + + + + + +------+ + + | | 2022-09-23 | [facility] | 38 | (missing) | (missing) | | (unavailable | 19:24:08 | [facility] | | | | + + + +------+ + + + + | Result panel 98 | + + + + + +-------+ + + | | 2022-09-23 | [facility] | 142 | (missing) | (missing) | | (unavailable | 19:24:08 | [facility] | | | | + + + +-------+ + + + + | Result panel 99 | + + + + + +------+ + + | | 2022-09-23 | [facility] | 64 | (missing) | (missing) | | (unavailable | 19:24:08 | [facility] | | | | + + + +------+ + + + + | Result panel 100 | + + + + + + + + + | | 2022-09-23 | [facility] | NEGATIVE | (missing) | (missing) | | (unavailable | 19:48:08 | [facility] | | | | + + + + + + + + + | Result panel 101 | + + + + + + + + + | | 2022-09-23 | [facility] | NEGATIVE | (missing) | (missing) | | (unavailable | 19:48:08 | [facility] | | | | + + + + + + + + + | Result panel 102 | + + + + + + + + + | | 2022-09-23 | [facility] | NEGATIVE | (missing) | (missing) | | (unavailable | 19:48:08 | [facility] | | | | + + + + + + + + + | Result panel 103 | + + + + + + + + + | | 2022-09-23 | [facility] | NEGATIVE | (missing) | (missing) | | (unavailable | 19:48:08 | [facility] | | | | + + + + + + + + + | Result panel 104 | + + + + + + + + + | | 2022-09-23 | [facility] | YELLOW | (missing) | (missing) | | (unavailable | 20:39:08 | [facility] | | | | + + + + + + + + + | Result panel 105 | + + + + + +---------+ + + | | 2022-09-23 | [facility] | CLEAR | (missing) | (missing) | | (unavailable | 20:39:08 | [facility] | | | | + + + +---------+ + + + + | Result panel 106 | + + + + + + + + + | | 2022-09-23 | [facility] | NEGATIVE | (missing) | (missing) | | (unavailable | 20:39:08 | [facility] | | | | + + + + + + + + + | Result panel 107 | + + + + + + + + + | | 2022-09-23 | [facility] | NEGATIVE | (missing) | (missing) | | (unavailable | 20:39:08 | [facility] | | | | + + + + + + + + + | Result panel 108 | + + + + + + + + + | | 2022-09-23 | [facility] | NEGATIVE | (missing) | (missing) | | (unavailable | 20:39:08 | [facility] | | | | + + + + + + + + + | Result panel 109 | + + + + + +---------+ + + | | 2022-09-23 | [facility] | 1.015 | (missing) | (missing) | | (unavailable | 20:39:08 | [facility] | | | | + + + +---------+ + + + + | Result panel 110 | + + + + + + + + + | | 2022-09-23 | [facility] | NEGATIVE | (missing) | (missing) | | (unavailable | 20:39:08 | [facility] | | | | + + + + + + + + + | Result panel 111 | + + + + + +-------+ + + | | 2022-09-23 | [facility] | 5.5 | (missing) | (missing) | | (unavailable | 20:39:08 | [facility] | | | | + + + +-------+ + + + + | Result panel 112 | + + + + + + + + + | | 2022-09-23 | [facility] | NEGATIVE | (missing) | (missing) | | (unavailable | 20:39:08 | [facility] | | | | + + + + + + + + + | Result panel 113 | + + + + + + + + + | | 2022-09-23 | [facility] | NORMAL | (missing) | (missing) | | (unavailable | 20:39:08 | [facility] | | | | + + + + + + + + + | Result panel 114 | + + + + + + + + + | | 2022-09-23 | [facility] | NEGATIVE | (missing) | (missing) | | (unavailable | 20:39:08 | [facility] | | | | + + + + + + + + + | Result panel 115 | + + + + + + + + + | | 2022-09-23 | [facility] | NEGATIVE | (missing) | (missing) | | (unavailable | 20:39:08 | [facility] | | | | + + + + + + + + + | Result panel 116 | + + + + + +-------+ + + | | 2022-12-08 | [facility] | 8.7 | (missing) | (missing) | | (unavailable | 10:28:07 | [facility] | | | | + + + +-------+ + + + + | Result panel 117 | + + + + + +--------+ + + | | 2022-12-08 | [facility] | 3.95 | (missing) | (missing) | | (unavailable | 10:28:07 | [facility] | | | | + + + +--------+ + + + + | Result panel 118 | + + + + + +--------+ + + | | 2022-12-08 | [facility] | 11.7 | (missing) | (missing) | | (unavailable | 10:28:07 | [facility] | | | | + + + +--------+ + + + + | Result panel 119 | + + + + + +--------+ + + | | 2022-12-08 | [facility] | 35.8 | (missing) | (missing) | | (unavailable | 10:28:07 | [facility] | | | | + + + +--------+ + + + + | Result panel 120 | + + + + + +--------+ + + | | 2022-12-08 | [facility] | 90.8 | (missing) | (missing) | | (unavailable | 10:28:07 | [facility] | | | | + + + +--------+ + + + + | Result panel 121 | + + + + + +--------+ + + | | 2022-12-08 | [facility] | 29.7 | (missing) | (missing) | | (unavailable | 10:28:07 | [facility] | | | | + + + +--------+ + + + + | Result panel 122 | + + + + + +--------+ + + | | 2022-12-08 | [facility] | 32.7 | (missing) | (missing) | | (unavailable | 10:28:07 | [facility] | | | | + + + +--------+ + + + + | Result panel 123 | + + + + + +--------+ + + | | 2022-12-08 | [facility] | 14.7 | (missing) | (missing) | | (unavailable | 10:28:07 | [facility] | | | | + + + +--------+ + + + + | Result panel 124 | + + + + + +-------+ + + | | 2022-12-08 | [facility] | 237 | (missing) | (missing) | | (unavailable | 10:28:07 | [facility] | | | | + + + +-------+ + + + + | Result panel 125 | + + + + + +--------+ + + | | 2022-12-08 | [facility] | 88.4 | (missing) | (missing) | | (unavailable | 10:28:07 | [facility] | | | | + + + +--------+ + + + + | Result panel 126 | + + + + + +-------+ + + | | 2022-12-08 | [facility] | 7.2 | (missing) | (missing) | | (unavailable | 10:28:07 | [facility] | | | | + + + +-------+ + + + + | Result panel 127 | + + + + + +-------+ + + | | 2022-12-08 | [facility] | 3.9 | (missing) | (missing) | | (unavailable | 10:28:07 | [facility] | | | | + + + +-------+ + + + + | Result panel 128 | + + + + + +-------+ + + | | 2022-12-08 | [facility] | 0.3 | (missing) | (missing) | | (unavailable | 10:28:07 | [facility] | | | | + + + +-------+ + + + + | Result panel 129 | + + + + + +-------+ + + | | 2022-12-08 | [facility] | 0.2 | (missing) | (missing) | | (unavailable | 10:28:07 | [facility] | | | | + + + +-------+ + + + + | Result panel 130 | + + + + + +-------+---------+ + | | 2022-12-08 | [facility] | 144 | mg/dL | (missing) | | (unavailable | 10:28:07 | [facility] | | | | + + + +-------+---------+ + + + | Result panel 131 | + + + + + +------+---------+ + | | 2022-12-08 | [facility] | 10 | mg/dL | (missing) | | (unavailable | 10:28:07 | [facility] | | | | + + + +------+---------+ + + + | Result panel 132 | + + + + + +--------+---------+ + | | 2022-12-08 | [facility] | 0.81 | mg/dL | (missing) | | (unavailable | 10:28:07 | [facility] | | | | + + + +--------+---------+ + + + | Result panel 133 | + + + + + +------+ + + | | 2022-12-08 | [facility] | 92 | (missing) | (missing) | | (unavailable | 10:28:07 | [facility] | | | | + + + +------+ + + + + | Result panel 134 | + + + + + +---------+ + + | | 2022-12-08 | [facility] | 12.34 | (missing) | (missing) | | (unavailable | 10:28:07 | [facility] | | | | + + + +---------+ + + + + | Result panel 135 | + + + + + +-------+ + + | | 2022-12-08 | [facility] | 138 | (missing) | (missing) | | (unavailable | 10:28:07 | [facility] | | | | + + + +-------+ + + + + | Result panel 136 | + + + + + +-------+ + + | | 2022-12-08 | [facility] | 3.8 | (missing) | (missing) | | (unavailable | 10:28:07 | [facility] | | | | + + + +-------+ + + + + | Result panel 137 | + + + + + +-------+ + + | | 2022-12-08 | [facility] | 100 | (missing) | (missing) | | (unavailable | 10:28:07 | [facility] | | | | + + + +-------+ + + + + | Result panel 138 | + + + + + +------+ + + | | 2022-12-08 | [facility] | 28 | (missing) | (missing) | | (unavailable | 10:28:07 | [facility] | | | | + + + +------+ + + + + | Result panel 139 | + + + + + +--------+ + + | | 2022-12-08 | [facility] | 13.8 | (missing) | (missing) | | (unavailable | 10:28:07 | [facility] | | | | + + + +--------+ + + + + | Result panel 140 | + + + + + +-------+---------+ + | | 2022-12-08 | [facility] | 8.5 | mg/dL | (missing) | | (unavailable | 10:28:07 | [facility] | | | | + + + +-------+---------+ + + + | Result panel 141 | + + + + + +-------+---------+ + | | 2022-12-08 | [facility] | 144 | mg/dL | (missing) | | (unavailable | 10:28:07 | [facility] | | | | + + + +-------+---------+ + + + | Result panel 142 | + + + + + +------+---------+ + | | 2022-12-08 | [facility] | 10 | mg/dL | (missing) | | (unavailable | 10:28:07 | [facility] | | | | + + + +------+---------+ + + + | Result panel 143 | + + + + + +--------+---------+ + | | 2022-12-08 | [facility] | 0.81 | mg/dL | (missing) | | (unavailable | :28:07 | [facility] | | | | + + + +--------+---------+ + + + | Result panel 144 | + + + + + +------+ + + | | 2022-12-08 | [facility] | 92 | (missing) | (missing) | | (unavailable | 10:28:07 | [facility] | | | | + + + +------+ + + + + | Result panel 145 | + + + + + +---------+ + + | | 2022-12-08 | [facility] | 12.34 | (missing) | (missing) | | (unavailable | 10:28:07 | [facility] | | | | + + + +---------+ + + + + | Result panel 146 | + + + + + +-------+ + + | | 2022-12-08 | [facility] | 138 | (missing) | (missing) | | (unavailable | 10:28:07 | [facility] | | | | + + + +-------+ + + + + | Result panel 147 | + + + + + +-------+ + + | | 2022-12-08 | [facility] | 3.8 | (missing) | (missing) | | (unavailable | 10:28:07 | [facility] | | | | + + + +-------+ + + + + | Result panel 148 | + + + + + +-------+ + + | | 2022-12-08 | [facility] | 100 | (missing) | (missing) | | (unavailable | 10:28:07 | [facility] | | | | + + + +-------+ + + + + | Result panel 149 | + + + + + +------+ + + | | 2022-12-08 | [facility] | 28 | (missing) | (missing) | | (unavailable | 10:28:07 | [facility] | | | | + + + +------+ + + + + | Result panel 150 | + + + + + +--------+ + + | | 2022-12-08 | [facility] | 13.8 | (missing) | (missing) | | (unavailable | 10:28:07 | [facility] | | | | + + + +--------+ + + + + | Result panel 151 | + + + + + +-------+---------+ + | | 2022-12-08 | [facility] | 8.5 | mg/dL | (missing) | | (unavailable | 10:28:07 | [facility] | | | | + + + +-------+---------+ + + + | Result panel 152 | + + + + + + + + + | | 2022-12-08 | [facility] | NEGATIVE | (missing) | (missing) | | (unavailable | 12:33:07 | [facility] | | | | + + + + + + + + + | Result panel 153 | + + + + + + + + + | | 2022-12-08 | [facility] | NEGATIVE | (missing) | (missing) | | (unavailable | 12:33:07 | [facility] | | | | + + + + + + + + + | Result panel 154 | + + + + + + + + + | | 2022-12-08 | [facility] | NEGATIVE | (missing) | (missing) | | (unavailable | 12:33:07 | [facility] | | | | + + + + + + + + + | Result panel 155 | + + + + + + + + + | | 2022-12-08 | [facility] | NEGATIVE | (missing) | (missing) | | (unavailable | 12:33:07 | [facility] | | | | + + + + + + + + + | Result panel 156 | + + + + + + + + + | | 2022-12-08 | [facility] | NEGATIVE | (missing) | (missing) | | (unavailable | 12:33:07 | [facility] | | | | + + + + + + + + + | Result panel 157 | + + + + + + + + + | | 2022-12-08 | [facility] | NEGATIVE | (missing) | (missing) | | (unavailable | 12:33:07 | [facility] | | | | + + + + + + + + + | Result panel 158 | + + + + + + + + + | | 2022-12-08 | [facility] | NEGATIVE | (missing) | (missing) | | (unavailable | 12:33:07 | [facility] | | | | + + + + + + + + + | Result panel 159 | + + + + + + + + + | | 2022-12-08 | [facility] | NEGATIVE | (missing) | (missing) | | (unavailable | 12:33:07 | [facility] | | | | + + + + + + + + + | Result panel 160 | + + + + + +--------+ + + | | 2022-12-21 | [facility] | 12.3 | (missing) | (missing) | | (unavailable | 09:57:07 [facility] | | | | + + + +--------+ + + + + | Result panel 161 | + + + + + +--------+ + + | | 2022-12-21 | [facility] | 4.11 | (missing) | (missing) | | (unavailable | 09:57:07 [facility] | | | | + + + +--------+ + + + + | Result panel 162 | + + + + + +--------+ + + | | 2022-12-21 | [facility] | 11.9 | (missing) | (missing) | | (unavailable | 09:57:07 [facility] | | | | + + + +--------+ + + + + | Result panel 163 | + + + + + +--------+ + + | | 2022-12-21 | [facility] | 37.3 | (missing) | (missing) | | (unavailable | 09:57:07 [facility] | | | | + + + +--------+ + + + + | Result panel 164 | + + + + + +--------+ + + | | 2022-12-21 | [facility] | 90.7 | (missing) | (missing) | | (unavailable | 09:57:07 [facility] | | | | + + + +--------+ + + + + | Result panel 165 | + + + + + +--------+ + + | | 2022-12-21 | [facility] | 29.0 | (missing) | (missing) | | (unavailable | 09:57:07 [facility] | | | | + + + +--------+ + + + + | Result panel 166 | + + + + + +--------+ + + | | 2022-12-21 | [facility] | 31.9 | (missing) | (missing) | | (unavailable | 09:57:07 [facility] | | | | + + + +--------+ + + + + | Result panel 167 | + + + + + +--------+ + + | | 2022-12-21 | [facility] | 14.8 | (missing) | (missing) | | (unavailable | 09:57:07 [facility] | | | | + + + +--------+ + + + + | Result panel 168 | + + + + + +-------+ + + | | 2022-12-21 | [facility] | 374 | (missing) | (missing) | | (unavailable | 09:57:07 [facility] | | | | + + + +-------+ + + + + | Result panel 169 | + + + + + +--------+ + + | | 2022-12-21 | [facility] | 73.1 | (missing) | (missing) | | (unavailable | 09:57:07 [facility] | | | | + + + +--------+ + + + + | Result panel 170 | + + + + + +--------+ + + | | 2022-12-21 | [facility] | 21.0 | (missing) | (missing) | | (unavailable | 09:57:07 [facility] | | | | + + + +--------+ + + + + | Result panel 171 | + + + + + +-------+ + + | | 2022-12-21 | [facility] | 4.5 | (missing) | (missing) | | (unavailable | 09:57:07 [facility] | | | | + + + +-------+ + + + + | Result panel 172 | + + + + + +-------+ + + | | 2022-12-21 | [facility] | 0.5 | (missing) | (missing) | | (unavailable | 09:57:07 [facility] | | | | + + + +-------+ + + + + | Result panel 173 | + + + + + +-------+ + + | | 2022-12-21 | [facility] | 0.9 | (missing) | (missing) | | (unavailable | 09:57:07 [facility] | | | | + + + +-------+ + + + + | Result panel 174 | + + + + + +-------+ + + | | 2023-02-18 | [facility] | 8.0 | (missing) | (missing) | | (unavailable | 09:00:07 [facility] | | | | + + + +-------+ + + + + | Result panel 175 | + + + + + +--------+ + + | | 2023-02-18 | [facility] | 69.6 | (missing) | (missing) | | (unavailable | 09:00:07 [facility] | | | | + + + +--------+ + + + + | Result panel 176 | + + + + + +--------+ + + | | 2023-02-18 | [facility] | 14.5 | (missing) | (missing) | | (unavailable | 09:00:07 [facility] | | | | + + + +--------+ + + + + | Result panel 177 | + + + + + +-------+ + + | | 2023-02-18 | [facility] | 316 | (missing) | (missing) | | (unavailable | 09:00:07 [facility] | | | | + + + +-------+ + + + + | Result panel 178 | + + + + + +--------+ + + | | 2023-02-18 | [facility] | 69.6 | (missing) | (missing) | | (unavailable | 09:00:07 [facility] | | | | + + + +--------+ + + + + | Result panel 179 | + + + + + +--------+ + + | | 2023-02-18 | [facility] | 23.9 | (missing) | (missing) | | (unavailable | 09:00:07 [facility] | | | | + + + +--------+ + + + + | Result panel 180 | + + + + + +-------+ + + | | 2023-02-18 | [facility] | 4.9 | (missing) | (missing) | | (unavailable | 09:00:07 [facility] | | | | + + + +-------+ + + + + | Result panel 181 | + + + + + +-------+ + + | | 2023-02-18 | [facility] | 1.1 | (missing) | (missing) | | (unavailable | ::07 | [facility] | | | | + + + +-------+ + + + + | Result panel 182 | + + + + + +-------+ + + | | 2023-02-18 | [facility] | 0.5 | (missing) | (missing) | | (unavailable | :00:07 | [facility] | | | | + + + +-------+ + + + + | Result panel 183 | + + + + + + + + + | | 2023-02-18 | [facility] | YELLOW | (missing) | (missing) | | (unavailable | 09:00:07 [facility] | | | | + + + + + + + + + | Result panel 184 | + + + + + +---------+ + + | | 2023-02-18 | [facility] | CLEAR | (missing) | (missing) | | (unavailable | 09:00:07 [facility] | | | | + + + +---------+ + + + + | Result panel 185 | + + + + + + + + + | | 2023-02-18 | [facility] | NEGATIVE | (missing) | (missing) | | (unavailable | 09:00:07 [facility] | | | | + + + + + + + + + | Result panel 186 | + + + + + +--------+ + + | | 2023-02-18 | [facility] | 23.9 | (missing) | (missing) | | (unavailable | 09:00:07 [facility] | | | | + + + +--------+ + + + + | Result panel 187 | + + + + + + + + + | | 2023-02-18 | [facility] | NEGATIVE | (missing) | (missing) | | (unavailable | 09:00:07 | [facility] | | | | + + + + + + + + + | Result panel 188 | + + + + + + + + + | | 2023-02-18 | [facility] | NEGATIVE | (missing) | (missing) | | (unavailable | 09:00:07 | [facility] | | | | + + + + + + + + + | Result panel 189 | + + + + + + + + + | | 2023-02-18 | [facility] | >=1.030 | (missing) | (missing) | | (unavailable | 09:00:07 | [facility] | | | | + + + + + + + + + | Result panel 190 | + + + + + + + + + | | 2023-02-18 | [facility] | NEGATIVE | (missing) | (missing) | | (unavailable | 09:: | [facility] | | | | + + + + + + + + + | Result panel 191 | + + + + + +-------+ + + | | 2023-02-18 | [facility] | 5.0 | (missing) | (missing) | | (unavailable | 09::07 | [facility] | | | | + + + +-------+ + + + + | Result panel 192 | + + + + + + + + + | | 2023-02-18 | [facility] | NEGATIVE | (missing) | (missing) | | (unavailable | 09::07 | [facility] | | | | + + + + + + + + + | Result panel 193 | + + + + + + + + + | | 2023-02-18 | [facility] | NORMAL | (missing) | (missing) | | (unavailable | 09::07 | [facility] | | | | + + + + + + + + + | Result panel 194 | + + + + + + + + + | | 2023-02-18 | [facility] | NEGATIVE | (missing) | (missing) | | (unavailable | 09:00:07 | [facility] | | | | + + + + + + + + + | Result panel 195 | + + + + + + + + + | | 2023-02-18 | [facility] | NEGATIVE | (missing) | (missing) | | (unavailable | 09:00:07 | [facility] | | | | + + + + + + + + + | Result panel 196 | + + + + + +-------+---------+ + | | 2023-02-18 | [facility] | 168 | mg/dL | (missing) | | (unavailable | 09:00:07 | [facility] | | | | + + + +-------+---------+ + + + | Result panel 197 | + + + + + +-------+ + + | | 2023-02-18 | [facility] | 4.9 | (missing) | (missing) | | (unavailable | 09:00:07 | [facility] | | | | + + + +-------+ + + + + | Result panel 198 | + + + + + +-----+---------+ + | | 2023-02-18 | [facility] | 8 | mg/dL | (missing) | | (unavailable | 09:00:07 | [facility] | | | | + + + +-----+---------+ + + + | Result panel 199 | + + + + + +--------+---------+ + | | 2023-02-18 | [facility] | 1.00 | mg/dL | (missing) | | (unavailable | 09:00:07 | [facility] | | | | + + + +--------+---------+ + + + | Result panel 200 | + + + + + +------+ + + | | 2023-02-18 | [facility] | 71 | (missing) | (missing) | | (unavailable | 09:00:07 | [facility] | | | | + + + +------+ + + + + | Result panel 201 | + + + + + +--------+ + + | | 2023-02-18 | [facility] | 8.00 | (missing) | (missing) | | (unavailable | 09:00:07 | [facility] | | | | + + + +--------+ + + + + | Result panel 202 | + + + + + +-------+ + + | | 2023-02-18 | [facility] | 139 | (missing) | (missing) | | (unavailable | 09:00:07 | [facility] | | | | + + + +-------+ + + + + | Result panel 203 | + + + + + +-------+ + + | | 2023-02-18 | [facility] | 3.3 | (missing) | (missing) | | (unavailable | 09:00:07 | [facility] | | | | + + + +-------+ + + + + | Result panel 204 | + + + + + +-------+ + + | | 2023-02-18 | [facility] | 100 | (missing) | (missing) | | (unavailable | 09:00:07 | [facility] | | | | + + + +-------+ + + + + | Result panel 205 | + + + + + +------+ + + | | 2023-02-18 | [facility] | 25 | (missing) | (missing) | | (unavailable | 09:00:07 | [facility] | | | | + + + +------+ + + + + | Result panel 206 | + + + + + +--------+ + + | | 2023-02-18 | [facility] | 17.3 | (missing) | (missing) | | (unavailable | 09:00:07 | [facility] | | | | + + + +--------+ + + + + | Result panel 207 | + + + + + +-------+---------+ + | | 2023-02-18 | [facility] | 8.8 | mg/dL | (missing) | | (unavailable | 09:00:07 | [facility] | | | | + + + +-------+---------+ + + + | Result panel 208 | + + + + + +-------+ + + | | 2023-02-18 | [facility] | 1.1 | (missing) | (missing) | | (unavailable | 09:00:07 | [facility] | | | | + + + +-------+ + + + + | Result panel 209 | + + + + + +-------+ + + | | 2023-02-18 | [facility] | 7.5 | (missing) | (missing) | | (unavailable | 09:00:07 | [facility] | | | | + + + +-------+ + + + + | Result panel 210 | + + + + + +-------+ + + | | 2023-02-18 | [facility] | 3.6 | (missing) | (missing) | | (unavailable | 09:00:07 | [facility] | | | + + + +-------+ + + + + | Result panel 211 | + + + + + +-------+ + + | | 2023-02-18 | [facility] | 3.9 | (missing) | (missing) | | (unavailable | 09:00:07 | [facility] | | | | + + + +-------+ + + + + | Result panel 212 | + + + + + +--------+ + + | | 2023-02-18 | [facility] | 0.92 | (missing) | (missing) | | (unavailable | ::07 | [facility] | | | | + + + +--------+ + + + + | Result panel 213 | + + + + + +-------+ + + | | 2023-02-18 | [facility] | 0.3 | (missing) | (missing) | | (unavailable | :00:07 | [facility] | | | | + + + +-------+ + + + + | Result panel 214 | + + + + + +------+ + + | | 2023-02-18 | [facility] | 15 | (missing) | (missing) | | (unavailable | 09:00:07 | [facility] | | | + + + +------+ + + + + | Result panel 215 | + + + + + +------+ + + | | 2023-02-18 | [facility] | 27 | (missing) | (missing) | | (unavailable | 09:00:07 | [facility] | | | + + + +------+ + + + + | Result panel 216 | + + + + + +-------+ + + | | 2023-02-18 | [facility] | 196 | (missing) | (missing) | | (unavailable | 09:00:07 | [facility] | | | + + + +-------+ + + + + | Result panel 217 | + + + + + +------+ + + | | 2023-02-18 | [facility] | 64 | (missing) | (missing) | | (unavailable | 09:00:07 | [facility] | | | | + + + +------+ + + + + | Result panel 218 | + + + + + +-------+ + + | | 2023-02-18 | [facility] | 0.5 | (missing) | (missing) | | (unavailable | 09:00:07 | [facility] | | | | + + + +-------+ + + + + | Result panel 219 | + + + + + + + + + | | 2023-02-18 | [facility] | YELLOW | (missing) | (missing) | | (unavailable | 09:00:07 | [facility] | | | | + + + + + + + + + | Result panel 220 | + + + + + +---------+ + + | | 2023-02-18 | [facility] | CLEAR | (missing) | (missing) | | (unavailable | 09:00:07 | [facility] | | | | + + + +---------+ + + + + | Result panel 221 | + + + + + + + + + | | 2023-02-18 | [facility] | NEGATIVE | (missing) | (missing) | | (unavailable | 09:00:07 | [facility] | | | | + + + + + + + + + | Result panel 222 | + + + + + + + + + | | 2023-02-18 | [facility] | NEGATIVE | (missing) | (missing) | | (unavailable | 09:00:07 | [facility] | | | | + + + + + + + + + | Result panel 223 | + + + + + + + + + | | 2023-02-18 | [facility] | NEGATIVE | (missing) | (missing) | | (unavailable | 09:00:07 | [facility] | | | | + + + + + + + + + | Result panel 224 | + + + + + +--------+ + + | | 2023-02-18 | [facility] | 3.99 | (missing) | (missing) | | (unavailable | 09:00:07 | [facility] | | | | + + + +--------+ + + + + | Result panel 225 | + + + + + + + + + | | 2023-02-18 | [facility] | >=1.030 | (missing) | (missing) | | (unavailable | 09:00:07 | [facility] | | | | + + + + + + + + + | Result panel 226 | + + + + + + + + + | | 2023-02-18 | [facility] | NEGATIVE | (missing) | (missing) | | (unavailable | 09:00:07 | [facility] | | | | + + + + + + + + + | Result panel 227 | + + + + + +-------+ + + | | 2023-02-18 | [facility] | 5.0 | (missing) | (missing) | | (unavailable | 09:00:07 | [facility] | | | | + + + +-------+ + + + + | Result panel 228 | + + + + + + + + + | | 2023-02-18 | [facility] | NEGATIVE | (missing) | (missing) | | (unavailable | 09:00:07 | [facility] | | | | + + + + + + + + + | Result panel 229 | + + + + + + + + + | | 2023-02-18 | [facility] | NORMAL | (missing) | (missing) | | (unavailable | 09:00:07 | [facility] | | | | + + + + + + + + + | Result panel 230 | + + + + + + + + + | | 2023-02-18 | [facility] | NEGATIVE | (missing) | (missing) | | (unavailable | 09:00:07 | [facility] | | | | + + + + + + + + + | Result panel 231 | + + + + + + + + + | | 2023-02-18 | [facility] | NEGATIVE | (missing) | (missing) | | (unavailable | 09:00:07 | [facility] | | | | + + + + + + + + + | Result panel 232 | + + + + + +-------+---------+ + | | 2023-02-18 | [facility] | 168 | mg/dL | (missing) | | (unavailable | 09:00:07 | [facility] | | | | + + + +-------+---------+ + + + | Result panel 233 | + + + + + +-----+---------+ + | | 2023-02-18 | [facility] | 8 | mg/dL | (missing) | | (unavailable | 09:00:07 | [facility] | | | | + + + +-----+---------+ + + + | Result panel 234 | + + + + + +--------+---------+ + | | 2023-02-18 | [facility] | 1.00 | mg/dL | (missing) | | (unavailable | 09:00:07 | [facility] | | | | + + + +--------+---------+ + + + | Result panel 235 | + + + + + +--------+ + + | | 2023-02-18 | [facility] | 11.4 | (missing) | (missing) | | (unavailable | 09:00:07 | [facility] | | | | + + + +--------+ + + + + | Result panel 236 | + + + + + +------+ + + | | 2023-02-18 | [facility] | 71 | (missing) | (missing) | | (unavailable | 09:00:07 | [facility] | | | | + + + +------+ + + + + | Result panel 237 | + + + + + +--------+ + + | | 2023-02-18 | [facility] | 8.00 | (missing) | (missing) | | (unavailable | 09:00:07 | [facility] | | | | + + + +--------+ + + + + | Result panel 238 | + + + + + +-------+ + + | | 2023-02-18 | [facility] | 139 | (missing) | (missing) | | (unavailable | 09:00:07 | [facility] | | | | + + + +-------+ + + + + | Result panel 239 | + + + + + +-------+ + + | | 2023-02-18 | [facility] | 3.3 | (missing) | (missing) | | (unavailable | 09:00:07 | [facility] | | | | + + + +-------+ + + + + | Result panel 240 | + + + + + +-------+ + + | | 2023-02-18 | [facility] | 100 | (missing) | (missing) | | (unavailable | 09:00:07 | [facility] | | | | + + + +-------+ + + + + | Result panel 241 | + + + + + +------+ + + | | 2023-02-18 | [facility] | 25 | (missing) | (missing) | | (unavailable | 09:00:07 | [facility] | | | | + + + +------+ + + + + | Result panel 242 | + + + + + +--------+ + + | | 2023-02-18 | [facility] | 17.3 | (missing) | (missing) | | (unavailable | 09:00:07 | [facility] | | | | + + + +--------+ + + + + | Result panel 243 | + + + + + +-------+---------+ + | | 2023-02-18 | [facility] | 8.8 | mg/dL | (missing) | | (unavailable | 09:00:07 | [facility] | | | | + + + +-------+---------+ + + + | Result panel 244 | + + + + + +-------+ + + | | 2023-02-18 | [facility] | 7.5 | (missing) | (missing) | | (unavailable | 09:00:07 | [facility] | | | | + + + +-------+ + + + + | Result panel 245 | + + + + + +-------+ + + | | 2023-02-18 | [facility] | 3.6 | (missing) | (missing) | | (unavailable | 09::07 | [facility] | | | | + + + +-------+ + + + + | Result panel 246 | + + + + + +--------+ + + | | 2023-02-18 | [facility] | 35.3 | (missing) | (missing) | | (unavailable | 09:00:07 | [facility] | | | | + + + +--------+ + + + + | Result panel 247 | + + + + + +-------+ + + | | 2023-02-18 | [facility] | 3.9 | (missing) | (missing) | | (unavailable | 09:00:07 | [facility] | | | | + + + +-------+ + + + + | Result panel 248 | + + + + + +--------+ + + | | 2023-02-18 | [facility] | 0.92 | (missing) | (missing) | | (unavailable | 09:00:07 | [facility] | | | + + + +--------+ + + + + | Result panel 249 | + + + + + +-------+ + + | | 2023-02-18 | [facility] | 0.3 | (missing) | (missing) | | (unavailable | 09:00:07 | [facility] | | | | + + + +-------+ + + + + | Result panel 250 | + + + + + +------+ + + | | 2023-02-18 | [facility] | 15 | (missing) | (missing) | | (unavailable | 09:00:07 | [facility] | | | | + + + +------+ + + + + | Result panel 251 | + + + + + +------+ + + | | 2023-02-18 | [facility] | 27 | (missing) | (missing) | | (unavailable | 09:00:07 | [facility] | | | | + + + +------+ + + + + | Result panel 252 | + + + + + +-------+ + + | | 2023-02-18 | [facility] | 196 | (missing) | (missing) | | (unavailable | 09:00:07 | [facility] | | | | + + + +-------+ + + + + | Result panel 253 | + + + + + +------+ + + | | 2023-02-18 | [facility] | 64 | (missing) | (missing) | | (unavailable | 09:00:07 | [facility] | | | | + + + +------+ + + + + | Result panel 254 | + + + + + +--------+ + + | | 2023-02-18 | [facility] | 88.6 | (missing) | (missing) | | (unavailable | 09:00:07 | [facility] | | | | + + + +--------+ + + + + | Result panel 255 | + + + + + +--------+ + + | | 2023-02-18 | [facility] | 28.6 | (missing) | (missing) | | (unavailable | 09:00:07 | [facility] | | | | + + + +--------+ + + + + | Result panel 256 | + + + + + +--------+ + + | | 2023-02-18 | [facility] | 32.3 | (missing) | (missing) | | (unavailable | 09:00:07 | [facility] | | | | + + + +--------+ + + + + | Result panel 257 | + + + + + +--------+ + + | | 2023-02-18 | [facility] | 14.5 | (missing) | (missing) | | (unavailable | 09:00:07 | [facility] | | | | + + + +--------+ + + + + | Result panel 258 | + + + + + + + + + | | 2023-02-18 | [facility] | YELLOW | (missing) | (missing) | | (unavailable | 09:00:07 | [facility] | | | | + + + + + + + + + | Result panel 259 | + + + + + +---------+ + + | | 2023-02-18 | [facility] | CLEAR | (missing) | (missing) | | (unavailable | 09:00:07 | [facility] | | | | + + + +---------+ + + + + | Result panel 260 | + + + + + + + + + | | 2023-02-18 | [facility] | NEGATIVE | (missing) | (missing) | | (unavailable | 09:00:07 | [facility] | | | | + + + + + + + + + | Result panel 261 | + + + + + + + + + | | 2023-02-18 | [facility] | NEGATIVE | (missing) | (missing) | | (unavailable | 09:00:07 | [facility] | | | | + + + + + + + + + | Result panel 262 | + + + + + + + + + | | 2023-02-18 | [facility] | NEGATIVE | (missing) | (missing) | | (unavailable | 09:00:07 | [facility] | | | | + + + + + + + + + | Result panel 263 | + + + + + + + + + | | 2023-02-18 | [facility] | >=1.030 | (missing) | (missing) | | (unavailable | 09:00:07 | [facility] | | | | + + + + + + + + + | Result panel 264 | + + + + + + + + + | | 2023-02-18 | [facility] | NEGATIVE | (missing) | (missing) | | (unavailable | 09:00:07 | [facility] | | | | + + + + + + + + + | Result panel 265 | + + + + + +-------+ + + | | 2023-02-18 | [facility] | 5.0 | (missing) | (missing) | | (unavailable | 09:00:07 | [facility] | | | | + + + +-------+ + + + + | Result panel 266 | + + + + + + + + + | | 2023-02-18 | [facility] | NEGATIVE | (missing) | (missing) | | (unavailable | 09:00:07 | [facility] | | | | + + + + + + + + + | Result panel 267 | + + + + + + + + + | | 2023-02-18 | [facility] | NORMAL | (missing) | (missing) | | (unavailable | 09:00:07 | [facility] | | | | + + + + + + + + + | Result panel 268 | + + + + + +-------+ + + | | 2023-02-18 | [facility] | 316 | (missing) | (missing) | | (unavailable | 09:00:07 | [facility] | | | | + + + +-------+ + + + + | Result panel 269 | + + + + + + + + + | | 2023-02-18 | [facility] | NEGATIVE | (missing) | (missing) | | (unavailable | 09:00:07 | [facility] | | | | + + + + + + + + + | Result panel 270 | + + + + + + + + + | | 2023-02-18 | [facility] | NEGATIVE | (missing) | (missing) | | (unavailable | 09:00:07 | [facility] | | | | + + + + + + + + + | Result panel 271 | + + + + + +------+ + + | | 2023-02-18 | [facility] | 64 | (missing) | (missing) | | (unavailable | 09:00:07 | [facility] | | | | + + + +------+ + + + + | Result panel 272 | + + + + + +-------+ + + | | 2023-02-18 | [facility] | 8.0 | (missing) | (missing) | | (unavailable | 09:00:07 | [facility] | | | | + + + +-------+ + + + + | Result panel 273 | + + + + + +--------+ + + | | 2023-02-18 | [facility] | 3.99 | (missing) | (missing) | | (unavailable | 09:00:07 | [facility] | | | | + + + +--------+ + + + + | Result panel 274 | + + + + + +--------+ + + | | 2023-02-18 | [facility] | 11.4 | (missing) | (missing) | | (unavailable | 09:00:07 | [facility] | | | | + + + +--------+ + + + + | Result panel 275 | + + + + + +--------+ + + | | 2023-02-18 | [facility] | 35.3 | (missing) | (missing) | | (unavailable | 09:00:07 | [facility] | | | | + + + +--------+ + + + + | Result panel 276 | + + + + + +--------+ + + | | 2023-02-18 | [facility] | 88.6 | (missing) | (missing) | | (unavailable | 09:00:07 | [facility] | | | | + + + +--------+ + + + + | Result panel 277 | + + + + + +--------+ + + | | 2023-02-18 | [facility] | 28.6 | (missing) | (missing) | | (unavailable | 09:00:07 | [facility] | | | | + + + +--------+ + + + + | Result panel 278 | + + + + + +--------+ + + | | 2023-02-18 | [facility] | 32.3 | (missing) | (missing) | | (unavailable | 09:00:07 | [facility] | | | | + + + +--------+ + + + + | Result panel 279 | + + + + + +-------+ + + | | 2023-02-28 | [facility] | 9.5 | (missing) | (missing) | | (unavailable | 18:26:07 | [facility] | | | | + + + +-------+ + + + + | Result panel 280 | + + + + + +--------+ + + | | 2023-02-28 | [facility] | 4.28 | (missing) | (missing) | | (unavailable | 18:26:07 | [facility] | | | | + + + +--------+ + + + + | Result panel 281 | + + + + + +--------+ + + | | 2023-02-28 | [facility] | 12.2 | (missing) | (missing) | | (unavailable | 18:26:07 [facility] | | | | + + + +--------+ + + + + | Result panel 282 | + + + + + +--------+ + + | | 2023-02-28 | [facility] | 37.8 | (missing) | (missing) | | (unavailable | 18:26:07 | [facility] | | | | + + + +--------+ + + + + | Result panel 283 | + + + + + +--------+ + + | | 2023-02-28 | [facility] | 88.3 | (missing) | (missing) | | (unavailable | 18:26:07 | [facility] | | | | + + + +--------+ + + + + | Result panel 284 | + + + + + +--------+ + + | | 2023-02-28 | [facility] | 28.4 | (missing) | (missing) | | (unavailable | 18:26:07 [facility] | | | | + + + +--------+ + + + + | Result panel 285 | + + + + + +--------+ + + | | 2023-02-28 | [facility] | 32.1 | (missing) | (missing) | | (unavailable | 18:26:07 [facility] | | | | + + + +--------+ + + + + | Result panel 286 | + + + + + +--------+ + + | | 2023-02-28 | [facility] | 14.5 | (missing) | (missing) | | (unavailable | 18:26:07 | [facility] | | | | + + + +--------+ + + + + | Result panel 287 | + + + + + +-------+ + + | | 2023-02-28 | [facility] | 336 | (missing) | (missing) | | (unavailable | 18:26:07 | [facility] | | | | + + + +-------+ + + + + | Result panel 288 | + + + + + +--------+ + + | | 2023-02-28 | [facility] | 65.4 | (missing) | (missing) | | (unavailable | 18:26:07 [facility] | | | | + + + +--------+ + + + + | Result panel 289 | + + + + + +--------+ + + | | 2023-02-28 | [facility] | 27.4 | (missing) | (missing) | | (unavailable | 18:26:07 [facility] | | | | + + + +--------+ + + + + | Result panel 290 | + + + + + +-------+ + + | | 2023-02-28 | [facility] | 5.4 | (missing) | (missing) | | (unavailable | 18:26:07 [facility] | | | | + + + +-------+ + + + + | Result panel 291 | + + + + + +-------+ + + | | 2023-02-28 | [facility] | 0.7 | (missing) | (missing) | | (unavailable | 18:26:07 [facility] | | | | + + + +-------+ + + + + | Result panel 292 | + + + + + +-------+ + + | | 2023-02-28 | [facility] | 1.1 | (missing) | (missing) | | (unavailable | 18:26:07 [facility] | | | | + + + +-------+ + + + + | Result panel 293 | + + + + + +------+---------+ + | | 2023-02-28 | [facility] | 97 | mg/dL | (missing) | | (unavailable | 18:26:07 [facility] | | | | + + + +------+---------+ + + + | Result panel 294 | + + + + + +------+---------+ + | | 2023-02-28 | [facility] | 11 | mg/dL | (missing) | | (unavailable | 18:26:07 [facility] | | | | + + + +------+---------+ + + + | Result panel 295 | + + + + + +--------+---------+ + | | 2023-02-28 | [facility] | 0.90 | mg/dL | (missing) | | (unavailable | 18:26:07 [facility] | | | | + + + +--------+---------+ + + + | Result panel 296 | + + + + + +------+ + + | | 2023-02-28 | [facility] | 81 | (missing) | (missing) | | (unavailable | 18:26:07 [facility] | | | | + + + +------+ + + + + | Result panel 297 | + + + + + +---------+ + + | | 2023-02-28 | [facility] | 12.22 | (missing) | (missing) | | (unavailable | 18:26:07 [facility] | | | | + + + +---------+ + + + + | Result panel 298 | + + + + + +-------+ + + | | 2023-02-28 | [facility] | 141 | (missing) | (missing) | | (unavailable | 18:26:07 [facility] | | | | + + + +-------+ + + + + | Result panel 299 | + + + + + +-------+ + + | | 2023-02-28 | [facility] | 3.3 | (missing) | (missing) | | (unavailable | 18:26:07 [facility] | | | | + + + +-------+ + + + + | Result panel 300 | + + + + + +-------+ + + | | 2023-02-28 | [facility] | 101 | (missing) | (missing) | | (unavailable | 18:26:07 [facility] | | | | + + + +-------+ + + + + | Result panel 301 | + + + + + +------+ + + | | 2023-02-28 | [facility] | 30 | (missing) | (missing) | | (unavailable | 18:26:07 [facility] | | | | + + + +------+ + + + + | Result panel 302 | + + + + + +--------+ + + | | 2023-02-28 | [facility] | 13.3 | (missing) | (missing) | | (unavailable | 18:26:07 [facility] | | | | + + + +--------+ + + + + | Result panel 303 | + + + + + +-------+---------+ + | | 2023-02-28 | [facility] | 9.0 | mg/dL | (missing) | | (unavailable | 18:26:07 [facility] | | | | + + + +-------+---------+ + + + | Result panel 304 | + + + + + +-------+ + + | | 2023-02-28 | [facility] | 7.9 | (missing) | (missing) | | (unavailable | 18:26:07 [facility] | | | | + + + +-------+ + + + + | Result panel 305 | + + + + + +-------+ + + | | 2023-02-28 | [facility] | 3.8 | (missing) | (missing) | | (unavailable | 18:26:07 [facility] | | | | + + + +-------+ + + + + | Result panel 306 | + + + + + +-------+ + + | | 2023-02-28 | [facility] | 4.1 | (missing) | (missing) | | (unavailable | 18:26:07 [facility] | | | | + + + +-------+ + + + + | Result panel 307 | + + + + + +--------+ + + | | 2023-02-28 | [facility] | 0.93 | (missing) | (missing) | | (unavailable | 18:26:07 [facility] | | | | + + + +--------+ + + + + | Result panel 308 | + + + + + +-------+ + + | | 2023-02-28 | [facility] | 0.2 | (missing) | (missing) | | (unavailable | 18:26:07 [facility] | | | | + + + +-------+ + + + + | Result panel 309 | + + + + + +------+ + + | | 2023-02-28 | [facility] | 20 | (missing) | (missing) | | (unavailable | 18::07 | [facility] | | | | + + + +------+ + + + + | Result panel 310 | + + + + + +------+ + + | | 2023-02-28 | [facility] | 30 | (missing) | (missing) | | (unavailable | 18:26:07 | [facility] | | | | + + + +------+ + + + + | Result panel 311 | + + + + + +-------+ + + | | 2023-02-28 | [facility] | 175 | (missing) | (missing) | | (unavailable | 18:26:07 | [facility] | | | | + + + +-------+ + + + + | TREPONEMAL AB TOT | + + + + + + + + + | TREPONEMAL | 2023-01-03 | [facility] | | (missing) | (missing) | | AB TOT | 14:58 | [facility] | NON-REACTIVE | | | | | | [facility] | | | | + + + + + + + + + | MICROALBUMIN, URINE (RANDOM) | + + + + + + + + + | CREATININE, | 2022-10-11 | [facility] | 207.71 | mg/dL | (missing) | | URINE | 07:15 | [facility] | | | | | | | [facility] | | | | + + + + + + + | MICROALB, | 2022-10-11 | [facility] | 3.6 | mg/dL | (missing) | | URINE | 07:15 | [facility] | | | | | | | [facility] | | | | + + + + + + + | | 2022-10-11 | [facility] | 17.3 | mg/g_creat | (missing) | | MICROALB/CRE | 07:15 | [facility] | | | | | AT | | [facility] | | | | + + + + + + + + + | LIPID PANEL | + + + + + +--------+ + + | VLDL | 2022-10-11 | [facility] | 28 | mg/dL | (missing) | | | 07:15 | [facility] | | | | | | | [facility] | | | | + + + +--------+ + + | LDL | 2022-10-11 | [facility] | 93 | mg/dL | (missing) | | | 07:15 | [facility] | | | | | | | [facility] | | | | + + + +--------+ + + | HDL | 2022-10-11 | [facility] | 66.3 | mg/dL | (missing) | | | 07:15 | [facility] | | | | | | | [facility] | | | | + + + +--------+ + + | CHOLESTEROL | 2022-10-11 | [facility] | 188 | mg/dL | (missing) | | | 07:15 | [facility] | | | | | | | [facility] | | | | + + + +--------+ + + | | 2022-10-11 | [facility] | 142 | mg/dL | (missing) | | TRIGLYCERIDE | 07:15 | [facility] | | | | | S | | , [facility] | | | | + + + +--------+ + + | NON-HDL | 2022-10-11 | [facility] | 122 | mg/dL | (missing) | | CHOL | 07:15 | [facility] | | | | | | | [facility] | | | | + + + +--------+ + + | CHOL/HDL | 2022-10-11 | [facility] | 2.8 | (missing) | (missing) | | | 07:15 | [facility] | | | | | | | [facility] | | | | + + + +--------+ + + + + | COMPREHENSIVE METABOLIC PANEL | + + + + + +--------+ + + | GLOBULIN | 2022-10-11 | [facility] | 2.3 | g/dl | (missing) | | | 07:15 | [facility] | | | | | | | [facility] | | | | + + + +--------+ + + | ALKALINE | 2022-10-11 | [facility] | 128 | U/L | (missing) | | PHOS | 07:15 | [facility] | | | | | | | [facility] | | | | + + + +--------+ + + | ALT(SGPT) | 2022-10-11 | [facility] | 24 | U/L | (missing) | | | 07:15 | [facility] | | | | | | | [facility] | | | | + + + +--------+ + + | ALBUMIN | 2022-10-11 | [facility] | 4.3 | g/dl | (missing) | | | 07:15 | [facility] | | | | | | | [facility] | | | | + + + +--------+ + + | A/G RATIO | 2022-10-11 | [facility] | 1.9 | (missing) | (missing) | | | 07:15 | [facility] | | | | | | | [facility] | | | | + + + +--------+ + + | CALCIUM | 2022-10-11 | [facility] | 9.2 | mg/dL | (missing) | | | 07:15 | [facility] | | | | | | | [facility] | | | | + + + +--------+ + + | ANION GAP | 2022-10-11 | [facility] | 15.3 | (missing) | (missing) | | | 07:15 | [facility] | | | | | | | [facility] | | | | + + + +--------+ + + | AST(SGOT) | 2022-10-11 | [facility] | 14 | U/L | (missing) | | | 07:15 | [facility] | | | | | | | [facility] | | | | + + + +--------+ + + | BILIRUBIN, | 2022-10-11 | [facility] | 0.3 | mg/dL | (missing) | | TOTAL | 07:15 | [facility] | | | | | | | [facility] | | | | + + + +--------+ + + | CARBON | 2022-10-11 | [facility] | 28 | meq/L | (missing) | | DIOXIDE | 07:15 | [facility] | | | | | | | [facility] | | | | + + + +--------+ + + | CHLORIDE | 2022-10-11 | [facility] | 101 | meq/L | (missing) | | | 07:15 | [facility] | | | | | | | [facility] | | | | + + + +--------+ + + | CREATININE, | 2022-10-11 | [facility] | 0.76 | mg/dL | (missing) | | [facility] | 07:15 | [facility] | | | | | | | [facility] | | | | + + + +--------+ + + | GLUCOSE | 2022-10-11 | [facility] | 100 | mg/dL | (missing) | | | 07:15 | [facility] | | | | | | [facility] | | | | + + + +--------+ + + | POTASSIUM | 2022-10-11 | [facility] | 4.3 | meq/L | (missing) | | | 07:15 | [facility] | | | | | | | [facility] | | | | + + + +--------+ + + | PROTEIN | 2022-10-11 | [facility] | 6.6 | g/dL | (missing) | | | 07:15 | [facility] | | | | | | | [facility] | | | | + + + +--------+ + + | SODIUM | 2022-10-11 | [facility] | 140 | meq/L | (missing) | | | 07:15 | [facility] | | | | | | | [facility] | | | | + + + +--------+ + + | UREA | 2022-10-11 | [facility] | 11 | mg/dL | (missing) | | NITROGEN | 07:15 | MED[facility] | | | | | | | [facility] | | | | + + + +--------+ + + | | 2022-10-11 | [facility] | 14.5 | (missing) | (missing) | | BUN/CREAT.RA | 07:15 | MEDICAL | | | | | [facility] | | [facility] | | | | + + + +--------+ + + | GFR | 2022-10-11 | [facility] | 83 | ml/min | (missing) | | ESTIMATION | 07:15 | [facility] | | | | | | | [facility] | | | | + + + +--------+ + + + + | COMPREHENSIVE METABOLIC PANEL | + + + + + +--------+ + + | GLOBULIN | 2023-01-03 | [facility] | 2.9 | g/dl | (missing) | | | 14:58 | [facility] | | | | | | | [facility] | | | | + + + +--------+ + + | ALKALINE | 2023-01-03 | [facility] | 162 | U/L | (missing) | | PHOS | 14:58 | [facility] | | | | | | | [facility] | | | | + + + +--------+ + + | ALT(SGPT) | 2023-01-03 | [facility] | 22 | U/L | (missing) | | | 14:58 | [facility] | | | | | | | [facility] | | | | + + + +--------+ + + | ALBUMIN | 2023-01-03 | [facility] | 4.2 | g/dl | (missing) | | | 14:58 | [facility] | | | | | | | [facility] | | | | + + + +--------+ + + | A/G RATIO | 2023-01-03 | [facility] | 1.4 | (missing) | (missing) | | | 14:58 | MED[facility] | | | | | | | [facility] | | | | + + + +--------+ + + | CALCIUM | 2023-01-03 | [facility] | 9.3 | mg/dL | (missing) | | | 14:58 | [facility] | | | | | | | [facility] | | | | + + + +--------+ + + | ANION GAP | 2023-01-03 | [facility] | 15.8 | (missing) | (missing) | | | 14:58 | MED[facility] | | | | | | | [facility] | | | | + + + +--------+ + + | AST(SGOT) | 2023-01-03 | [facility] | 16 | U/L | (missing) | | | 14:58 | [facility] | | | | | | | [facility] | | | | + + + +--------+ + + | BILIRUBIN, | 2023-01-03 | [facility] | 0.2 | mg/dL | (missing) | | TOTAL | 14:58 | [facility] | | | | | | | [facility] | | | | + + + +--------+ + + | CARBON | 2023-01-03 | [facility] | 28 | meq/L | (missing) | | DIOXIDE | 14:58 | MED[facility] | | | | | | | [facility] | | | | + + + +--------+ + + | CHLORIDE | 2023-01-03 | [facility] | 100 | meq/L | (missing) | | | 14:58 | [facility] | | | | | | | [facility] | | | | + + + +--------+ + + | CREATININE, | 2023-01-03 | [facility] | 0.79 | mg/dL | (missing) | | SERUM | 14:58 | [facility] | | | | | | | [facility] | | | | + + + +--------+ + + | GLUCOSE | 2023-01-03 | [facility] | 119 | mg/dL | (missing) | | | 14:58 | [facility] | | | | | | | [facility] | | | | + + + +--------+ + + | POTASSIUM | 2023-01-03 | [facility] | 3.8 | meq/L | (missing) | | | 14:58 | MED[facility] | | | | | | | [facility] | | | | + + + +--------+ + + | PROTEIN | 2023-01-03 | [facility] | 7.1 | g/dL | (missing) | | | 14:58 | [facility] | | | | | | | , [facility] | | | | + + + +--------+ + + | SODIUM | 2023-01-03 | [facility] | 140 | meq/L | (missing) | | | 14:58 | MED[facility] | | | | | | | , [facility] | | | | + + + +--------+ + + | UREA | 2023-01-03 | [facility] | 9 | mg/dL | (missing) | | NITROGEN | 14:58 | MEDICAL | | | | | | | , [facility] | | | | + + + +--------+ + + | | 2023-01-03 | [facility] | 11.4 | (missing) | (missing) | | BUN/CREAT.RA | 14:58 | MEDICAL | | | | | [facility] | | , [facility] | | | | + + + +--------+ + + | GFR | 2023-01-03 | [facility] | 79 | ml/min | (missing) | | ESTIMATION | 14:58 | [facility] | | | | | | | [facility] | | | | + + + +--------+ + + + + | HEMOGLOBIN A1C PANEL | + + + + + +-------+---------+ + | EST AVG | 2022-10-11 | [facility] | 128 | mg/dL | (missing) | | GLUCOSE | 07:15 | [facility] | | | | | | | [facility] | | | | + + + +-------+---------+ + | HEMOGLOBIN | 2022-10-11 | [facility] | 6.1 | % | (missing) | | A1C | 07:15 | [facility] | | | | | | | [facility] | | | | + + + +-------+---------+ + + + | HEMOGLOBIN A1C PANEL | + + + + + +-------+---------+ + | EST AVG | 2023-01-03 | [facility] | 148 | mg/dL | (missing) | | GLUCOSE | 14:58 | MED[facility] | | | | | | | , [facility] | | | | + + + +-------+---------+ + | HEMOGLOBIN | 2023-01-03 | [facility] | 6.8 | % | (missing) | | A1C | 14:58 | MED[facility] | | | | | | | , [facility] | | | | + + + +-------+---------+ + +---------+ | HBsAg | +---------+ +---------+ + + + + + | HBsAg | 2023-01-03 | [facility] | NEGATIVE | (missing) | (missing) | | | 14:58 | [facility] | | | | | | | [facility] | | | | +---------+ + + + + + + + | ANTI-HBs | + + + + + + + + + | ANTI-HBs | 2023-01-03 | [facility] | POSITIVE | (missing) | (missing) | | | 14:58 | [facility] | | | | | | | [facility] | | | | + + + + + + + + + | ANTI-HCV | + + + + + + + + + | ANTI-HCV | 2023-01-03 | [facility] | NEGATIVE | (missing) | (missing) | | | 14:58 | MED[facility] | | | | | | | [facility] | | | | + + + + + + + + + | HIV 1+2 Ab/Ag | + + + + + + + + + | HIV 1+2 | 2023-01-03 | [facility] | | (missing) | (missing) | | Ab/Ag | 14:58 | MEDICAL | NON-REACTIVE | | | | | | [facility] | | | | + + + + + + + +-------+ | CBC | +-------+ + + + +--------+--------+ + | HEMOGLOBIN | 2022-10-11 | [facility] | 12.1 | g/dl | (missing) | | | 07:15 | [facility] | | | | | | | [facility] | | | | + + + +--------+--------+ + | RDW | 2022-10-11 | [facility] | 15.9 | % | (missing) | | | 07:15 | [facility] | | | | | | | [facility] | | | | + + + +--------+--------+ + | HEMATOCRIT | 2022-10-11 | [facility] | 36.7 | % | (missing) | | | 07:15 | [facility] | | | | | | | [facility] | | | | + + + +--------+--------+ + | MONOCYTES | 2022-10-11 | [facility] | 7.3 | % | (missing) | | | 07:15 | [facility] | | | | | | | [facility] | | | | + + + +--------+--------+ + | WBC | 2022-10-11 | [facility] | 7.7 | K/ul | (missing) | | | 07:15 | [facility] | | | | | | | [facility] | | | | + + + +--------+--------+ + | BASOPHILS | 2022-10-11 | [facility] | 0.2 | % | (missing) | | | 07:15 | [facility] | | | | | | | [facility] | | | | + + + +--------+--------+ + | EOSINOPHILS | 2022-10-11 | [facility] | 0.9 | % | (missing) | | | 07:15 | [facility] | | | | | | | [facility] | | | | + + + +--------+--------+ + | LYMPHOCYTES | 2022-10-11 | [facility] | 35.3 | % | (missing) | | | 07:15 | [facility] | | | | | | | [facility] | | | | + + + +--------+--------+ + | NEUTROPHILS | 2022-10-11 | [facility] | 56.3 | % | (missing) | | | 07:15 | [facility] | | | | | | | [facility] | | | | + + + +--------+--------+ + | PLATELET | 2022-10-11 | [facility] | 237 | K/ul | (missing) | | COUNT | 07:15 | [facility] | | | | | | | [facility] | | | | + + + +--------+--------+ + | MCH | 2022-10-11 | [facility] | 30 | pg | (missing) | | | 07:15 | MED[facility] | | | | | | | [facility] | | | | + + + +--------+--------+ + | MCHC | 2022-10-11 | [facility] | 33 | g/dL | (missing) | | | 07:15 | [facility] | | | | | | | [facility] | | | | + + + +--------+--------+ + | MCV | 2022-10-11 | [facility] | 92.2 | fl | (missing) | | | 07:15 | [facility] | | | | | | | [facility] | | | | + + + +--------+--------+ + | RBC | 2022-10-11 | [facility] | 3.98 | M/ul | (missing) | | | 07:15 | [facility] | | | | | | | [facility] | | | | + + + +--------+--------+ + +-------+ | CBC | +-------+ + + + +--------+--------+ + | HEMOGLOBIN | 2023-01-03 | [facility] | 12.5 | g/dl | (missing) | | | 14:58 | [facility] | | | | | | | , [facility] | | | | + + + +--------+--------+ + | RDW | 2023-01-03 | [facility] | 14.5 | % | (missing) | | | 14:58 | [facility] | | | | | | | [facility] | | | | + + + +--------+--------+ + | HEMATOCRIT | 2023-01-03 | [facility] | 38.6 | % | (missing) | | | 14:58 | [facility] | | | | | | | [facility] | | | | + + + +--------+--------+ + | MONOCYTES | 2023-01-03 | [facility] | 7.1 | % | (missing) | | | 14:58 | [facility] | | | | | | | [facility] | | | | + + + +--------+--------+ + | WBC | 2023-01-03 | [facility] | 8.7 | K/ul | (missing) | | | 14:58 | [facility] | | | | | | | [facility] | | | | + + + +--------+--------+ + | BASOPHILS | 2023-01-03 | [facility] | 1.2 | % | (missing) | | | 14:58 | [facility] | | | | | | | [facility] | | | | + + + +--------+--------+ + | EOSINOPHILS | 2023-01-03 | [facility] | 1.2 | % | (missing) | | | 14:58 | [facility] | | | | | | | [facility] | | | | + + + +--------+--------+ + | LYMPHOCYTES | 2023-01-03 | [facility] | 29.9 | % | (missing) | | | 14:58 | [facility] | | | | | | | [facility] | | | | + + + +--------+--------+ + | NEUTROPHILS | 2023-01-03 | [facility] | 60.6 | % | (missing) | | | 14:58 | [facility] | | | | | | | [facility] | | | | + + + +--------+--------+ + | PLATELET | 2023-01-03 | [facility] | 360 | K/ul | (missing) | | COUNT | 14:58 | [facility] | | | | | | | [facility] | | | | + + + +--------+--------+ + | MCH | 2023-01-03 | [facility] | 29 | pg | (missing) | | | 14:58 | MED[facility] | | | | | | | [facility] | | | | + + + +--------+--------+ + | MCHC | 2023-01-03 | [facility] | 32 | g/dL | (missing) | | | 14:58 | MED[facility] | | | | | | | [facility] | | | | + + + +--------+--------+ + | MCV | 2023-01-03 | [facility] | 90.8 | fl | (missing) | | | 14:58 | [facility] | | | | | | | [facility] | | | | + + + +--------+--------+ + | RBC | 2023-01-03 | [facility] | 4.26 | M/ul | (missing) | | | 14:58 | MED[facility] | | | | | | | [facility] | | | | + + + +--------+--------+ + Social History + + + + | date | description | facility | + + + + | 2022-09-12 00:00 | Unknown if ever smoked | [facility] | | | | | + + + + | 2022-09-19 00:00 | Unknown if ever smoked | [facility] | | | | | + + + + | 2022-10-02 00:00 | [facility] | | | + + + + | 2023-01-03 00:00 | [facility] if ever [facility] | | | | | + + + + | 2023-01-07 00:00 | Unknown if ever smoked | [facility] | | | | | + + + + Vital Signs + + + + + | date | measurement | value | units | + + + + + | 2021-11-15 00:00 | BMI | 52.3 | kg/m2 | + + + + + | 2021-11-15 00:00 | BP_diastolic | 0 | mmHg | + + + + + | 2021-11-15 00:00 | BP_systolic | 0 | mmHg | + + + + + | 2021-11-15 00:00 | heart_rate | 0 | /min | + + + + + | 2021-11-15 00:00 | height_metric | 157.48 | cm | + + + + + | 2021-11-15 00:00 | height_standard | 62 | in | + + + + + | 2021-11-15 00:00 | o2_saturation | 0 | % | + + + + + | 2021-11-15 00:00 | respiration_rate | 0 | /min | + + + + + | 2021-11-15 00:00 | temperature_metric | -17.78 | C | | | | | | + + + + + | 2021-11-15 00:00 | | 0 | F | | | temperature_standar | | | | | d | | | + + + + + | 2021-11-15 00:00 | weight_metric | 129.7 | kg | + + + + + | 2021-11-15 00:00 | weight_standard | 285.94 | lb | + + + + + | 2022-02-03 00:00 | BMI | 50.8 | kg/m2 | + + + + + | 2022-02-03 00:00 | BP_diastolic | 78 | mmHg | + + + + + | 2022-02-03 00:00 | BP_systolic | 129 | mmHg | + + + + + | 2022-02-03 00:00 | heart_rate | 97 | /min | + + + + + | 2022-02-03 00:00 | height_metric | 160.02 | cm | + + + + + | 2022-02-03 00:00 | height_standard | 63 | in | + + + + + | 2022-02-03 00:00 | o2_saturation | 97 | % | + + + + + | 2022-02-03 00:00 | respiration_rate | 18 | /min | + + + + + | 2022-02-03 00:00 | temperature_metric | 36.78 | C | | | | | | + + + + + | 2022-02-03 00:00 | | 98.2 | F | | | temperature_standar | | | | | d | | | + + + + + | 2022-02-03 00:00 | weight_metric | 130 | kg | + + + + + | 2022-02-03 00:00 | weight_standard | 286.6 | lb | + + + + + | 2022-02-05 00:00 | BMI | 51.0 | kg/m2 | + + + + + | 2022-02-05 00:00 | BP_diastolic | 84 | mmHg | + + + + + | 2022-02-05 00:00 | BP_systolic | 127 | mmHg | + + + + + | 2022-02-05 00:00 | heart_rate | 72 | /min | + + + + + | 2022-02-05 00:00 | height_metric | 160.02 | cm | + + + + + | 2022-02-05 00:00 | height_standard | 63 | in | + + + + + | 2022-02-05 00:00 | o2_saturation | 98 | % | + + + + + | 2022-02-05 00:00 | respiration_rate | 18 | /min | + + + + + | 2022-02-05 00:00 | temperature_metric | 37.22 | C | | | | | | + + + + + | 2022-02-05 00:00 | | 99 | F | | | temperature_standar | | | | | d | | | + + + + + | 2022-02-05 00:00 | weight_metric | 130.5 | kg | + + + + + | 2022-02-05 00:00 | weight_standard | 287.7 | lb | + + + + + | 2022-02-05 00:00 | weight_standard | 287.71 | lb | + + + + + | 2022-02-23 00:00 | BMI | 50.7 | kg/m2 | + + + + + | 2022-02-23 00:00 | BP_diastolic | 83 | mmHg | + + + + + | 2022-02-23 00:00 | BP_systolic | 115 | mmHg | + + + + + | 2022-02-23 00:00 | heart_rate | 74 | /min | + + + + + | 2022-02-23 00:00 | height_metric | 160.02 | cm | + + + + + | 2022-02-23 00:00 | height_standard | 63 | in | + + + + + | 2022-02-23 00:00 | o2_saturation | 99 | % | + + + + + | 2022-02-23 00:00 | respiration_rate | 16 | /min | + + + + + | 2022-02-23 00:00 | temperature_metric | 36.5 | C | | | | | | + + + + + | 2022-02-23 00:00 | | 97.7 | F | | | temperature_standar | | | | | d | | | + + + + + | 2022-02-23 00:00 | weight_metric | 129.8 | kg | + + + + + | 2022-02-23 00:00 | weight_standard | 286.16 | lb | + + + + + | 2022-04-24 00:00 | BMI | 50.7 | kg/m2 | + + + + + | 2022-04-24 00:00 | BP_diastolic | 92 | mmHg | + + + + + | 2022-04-24 00:00 | BP_systolic | 124 | mmHg | + + + + + | 2022-04-24 00:00 | heart_rate | 75 | /min | + + + + + | 2022-04-24 00:00 | height_metric | 160.02 | cm | + + + + + | 2022-04-24 00:00 | height_standard | 63 | in | + + + + + | 2022-04-24 00:00 | o2_saturation | 97 | % | + + + + + | 2022-04-24 00:00 | respiration_rate | 16 | /min | + + + + + | 2022-04-24 00:00 | temperature_metric | 36.83 | C | | | | | | + + + + + | 2022-04-24 00:00 | | 98.3 | F | | | temperature_standar | | | | | d | | | + + + + + | 2022-04-24 00:00 | weight_metric | 129.78 | kg | + + + + + | 2022-04-24 00:00 | weight_metric | 129.79 | kg | + + + + + | 2022-04-24 00:00 | weight_standard | 286.12 | lb | + + + + + | 2022-04-24 00:00 | weight_standard | 286.13 | lb | + + + + + | 2022-05-27 00:00 | BMI | 50.8 | kg/m2 | + + + + + | 2022-05-27 00:00 | BP_diastolic | 98 | mmHg | + + + + + | 2022-05-27 00:00 | BP_systolic | 136 | mmHg | + + + + + | 2022-05-27 00:00 | heart_rate | 74 | /min | + + + + + | 2022-05-27 00:00 | height_metric | 160.02 | cm | + + + + + | 2022-05-27 00:00 | height_standard | 63 | in | + + + + + | 2022-05-27 00:00 | o2_saturation | 99 | % | + + + + + | 2022-05-27 00:00 | respiration_rate | 17 | /min | + + + + + | 2022-05-27 00:00 | temperature_metric | 36.89 | C | | | | | | + + + + + | 2022-05-27 00:00 | | 98.4 | F | | | temperature_standar | | | | | d | | | + + + + + | 2022-05-27 00:00 | weight_metric | 130 | kg | + + + + + | 2022-05-27 00:00 | weight_standard | 286.6 | lb | + + + + + | 2022-08-26 00:00 | BMI | 50.8 | kg/m2 | + + + + + | 2022-08-26 00:00 | BP_diastolic | 80 | mmHg | + + + + + | 2022-08-26 00:00 | BP_systolic | 118 | mmHg | + + + + + | 2022-08-26 00:00 | heart_rate | 64 | /min | + + + + + | 2022-08-26 00:00 | height_metric | 160.02 | cm | + + + + + | 2022-08-26 00:00 | height_standard | 63 | in | + + + + + | 2022-08-26 00:00 | o2_saturation | 96 | % | + + + + + | 2022-08-26 00:00 | respiration_rate | 17 | /min | + + + + + | 2022-08-26 00:00 | temperature_metric | 36.72 | C | | | | | | + + + + + | 2022-08-26 00:00 | | 98.1 | F | | | temperature_standar | | | | | d | | | + + + + + | 2022-08-26 00:00 | weight_metric | 129.98 | kg | + + + + + | 2022-08-26 00:00 | weight_standard | 286.56 | lb | + + + + + | 2022-09-10 00:00 | BP_diastolic | 66 | mmHg | + + + + + | 2022-09-10 00:00 | BP_systolic | 100 | mmHg | + + + + + | 2022-09-10 00:00 | heart_rate | 1|1| | completed | + + + + + | 2022-09-10 00:00 | heart_rate | 91 | /min | + + + + + | 2022-09-10 00:00 | o2_saturation | 96 | % | + + + + + | 2022-09-10 00:00 | temperature_metric | 36.5 | C | | | | | | + + + + + | 2022-09-10 00:00 | | 97.7 | F | | | temperature_standar | | | | | d | | | + + + + + | 2022-09-10 00:00 | weight_metric | 131.54 | kg | + + + + + | 2022-09-10 00:00 | weight_standard | 290 | lb | + + + + + | 2022-09-20 00:00 | BMI | 50.8 | kg/m2 | + + + + + | 2022-09-20 00:00 | height_metric | 160.02 | cm | + + + + + | 2022-09-20 00:00 | height_standard | 63 | in | + + + + + | 2022-09-20 00:00 | weight_metric | 129.98 | kg | + + + + + | 2022-09-20 00:00 | weight_standard | 286.56 | lb | + + + + + | 2022-09-21 00:00 | BP_diastolic | 80 | mmHg | + + + + + | 2022-09-21 00:00 | BP_systolic | 120 | mmHg | + + + + + | 2022-09-21 00:00 | heart_rate | 101 | /min | + + + + + | 2022-09-21 00:00 | o2_saturation | 99 | % | + + + + + | 2022-09-21 00:00 | respiration_rate | 16 | /min | + + + + + | 2022-09-21 00:00 | temperature_metric | 36.94 | C | | | | | | + + + + + | 2022-09-21 00:00 | | 98.5 | F | | | temperature_standar | | | | | d | | | + + + + + | 2022-09-23 00:00 | BMI | 50.2 | kg/m2 | + + + + + | 2022-09-23 00:00 | BP_diastolic | 86 | mmHg | + + + + + | 2022-09-23 00:00 | BP_systolic | 117 | mmHg | + + + + + | 2022-09-23 00:00 | heart_rate | 78 | /min | + + + + + | 2022-09-23 00:00 | height_metric | 160.02 | cm | + + + + + | 2022-09-23 00:00 | height_standard | 63 | in | + + + + + | 2022-09-23 00:00 | o2_saturation | 99 | % | + + + + + | 2022-09-23 00:00 | respiration_rate | 16 | /min | + + + + + | 2022-09-23 00:00 | temperature_metric | 36.78 | C | | | | | | + + + + + | 2022-09-23 00:00 | | 98.2 | F | | | temperature_standar | | | | | d | | | + + + + + | 2022-09-23 00:00 | weight_metric | 128.6 | kg | + + + + + | 2022-09-23 00:00 | weight_standard | 283.51 | lb | + + + + + | 2022-10-01 00:00 | BP_diastolic | 92 | mmHg | + + + + + | 2022-10-01 00:00 | BP_systolic | 136 | mmHg | + + + + + | 2022-10-01 00:00 | heart_rate | 1|1| | completed | + + + + + | 2022-10-01 00:00 | heart_rate | 82 | /min | + + + + + | 2022-10-01 00:00 | o2_saturation | 96 | % | + + + + + | 2022-10-01 00:00 | temperature_metric | 36.5 | C | | | | | | + + + + + | 2022-10-01 00:00 | | 97.7 | F | | | temperature_standar | | | | | d | | | + + + + + | 2022-10-01 00:00 | weight_metric | 128.82 | kg | + + + + + | 2022-10-01 00:00 | weight_standard | 284 | lb | + + + + + | 2022-11-10 00:00 | BMI | 49.4 | kg/m2 | + + + + + | 2022-11-10 00:00 | BP_diastolic | 101 | mmHg | + + + + + | 2022-11-10 00:00 | BP_systolic | 147 | mmHg | + + + + + | 2022-11-10 00:00 | heart_rate | 92 | /min | + + + + + | 2022-11-10 00:00 | height_metric | 160.02 | cm | + + + + + | 2022-11-10 00:00 | height_standard | 63 | in | + + + + + | 2022-11-10 00:00 | o2_saturation | 98 | % | + + + + + | 2022-11-10 00:00 | respiration_rate | 18 | /min | + + + + + | 2022-11-10 00:00 | temperature_metric | 36.89 | C | | | | | | + + + + + | 2022-11-10 00:00 | | 98.4 | F | | | temperature_standar | | | | | d | | | + + + + + | 2022-11-10 00:00 | weight_metric | 126.55 | kg | + + + + + | 2022-11-10 00:00 | weight_standard | 278.99 | lb | + + + + + | 2022-11-10 00:00 | weight_standard | 279 | lb | + + + + + | 2022-12-08 00:00 | BMI | 50.0 | kg/m2 | + + + + + | 2022-12-08 00:00 | BP_diastolic | 55 | mmHg | + + + + + | 2022-12-08 00:00 | BP_systolic | 105 | mmHg | + + + + + | 2022-12-08 00:00 | heart_rate | 98 | /min | + + + + + | 2022-12-08 00:00 | height_metric | 160.02 | cm | + + + + + | 2022-12-08 00:00 | height_standard | 63 | in | + + + + + | 2022-12-08 00:00 | o2_saturation | 96 | % | + + + + + | 2022-12-08 00:00 | respiration_rate | 18 | /min | + + + + + | 2022-12-08 00:00 | temperature_metric | 37.5 | C | | | | | | + + + + + | 2022-12-08 00:00 | | 99.5 | F | | | temperature_standar | | | | | d | | | + + + + + | 2022-12-08 00:00 | weight_metric | 127.91 | kg | + + + + + | 2022-12-08 00:00 | weight_standard | 281.99 | lb | + + + + + | 2022-12-08 00:00 | weight_standard | 282 | lb | + + + + + | 2022-12-21 00:00 | BMI | 50.1 | kg/m2 | + + + + + | 2022-12-21 00:00 | BP_diastolic | 74 | mmHg | + + + + + | 2022-12-21 00:00 | BP_systolic | 112 | mmHg | + + + + + | 2022-12-21 00:00 | heart_rate | 72 | /min | + + + + + | 2022-12-21 00:00 | height_metric | 160.02 | cm | + + + + + | 2022-12-21 00:00 | height_standard | 63 | in | + + + + + | 2022-12-21 00:00 | o2_saturation | 97 | % | + + + + + | 2022-12-21 00:00 | respiration_rate | 18 | /min | + + + + + | 2022-12-21 00:00 | temperature_metric | 36.94 | C | | | | | | + + + + + | 2022-12-21 00:00 | | 98.5 | F | | | temperature_standar | | | | | d | | | + + + + + | 2022-12-21 00:00 | weight_metric | 128.37 | kg | + + + + + | 2022-12-21 00:00 | weight_standard | 283 | lb | + + + + + | 2022-12-21 00:00 | weight_standard | 283.01 | lb | + + + + + | 2023-02-18 00:00 | BMI | 48.5 | kg/m2 | + + + + + | 2023-02-18 00:00 | BP_diastolic | 97 | mmHg | + + + + + | 2023-02-18 00:00 | BP_systolic | 138 | mmHg | + + + + + | 2023-02-18 00:00 | heart_rate | 65 | /min | + + + + + | 2023-02-18 00:00 | height_metric | 160.02 | cm | + + + + + | 2023-02-18 00:00 | height_standard | 63 | in | + + + + + | 2023-02-18 00:00 | o2_saturation | 98 | % | + + + + + | 2023-02-18 00:00 | respiration_rate | 16 | /min | + + + + + | 2023-02-18 00:00 | temperature_metric | 36.39 | C | | | | | | + + + + + | 2023-02-18 00:00 | | 97.5 | F | | | temperature_standar | | | | | d | | | + + + + + | 2023-02-18 00:00 | weight_metric | 124.3 | kg | + + + + + | 2023-02-18 00:00 | weight_standard | 274.03 | lb | + + + + + | 2023-02-18 00:00 | weight_standard | 274.04 | lb | + + + + + | 2023-02-24 00:00 | BMI | 48.5 | kg/m2 | + + + + + | 2023-02-24 00:00 | BP_diastolic | 97 | mmHg | + + + + + | 2023-02-24 00:00 | BP_systolic | 141 | mmHg | + + + + + | 2023-02-24 00:00 | heart_rate | 88 | /min | + + + + + | 2023-02-24 00:00 | height_metric | 160.02 | cm | + + + + + | 2023-02-24 00:00 | height_standard | 63 | in | + + + + + | 2023-02-24 00:00 | o2_saturation | 97 | % | + + + + + | 2023-02-24 00:00 | respiration_rate | 17 | /min | + + + + + | 2023-02-24 00:00 | temperature_metric | 36.11 | C | | | | | | + + + + + | 2023-02-24 00:00 | | 97 | F | | | temperature_standar | | | | | d | | | + + + + + | 2023-02-24 00:00 | weight_metric | 124.26 | kg | + + + + + | 2023-02-24 00:00 | weight_standard | 273.94 | lb | + + + + + | 2023-02-24 00:00 | weight_standard | 273.95 | lb | + + + + + | 2023-02-28 00:00 | BMI | 48.4 | kg/m2 | + + + + + | 2023-02-28 00:00 | BP_diastolic | 83 | mmHg | + + + + + | 2023-02-28 00:00 | BP_systolic | 129 | mmHg | + + + + + | 2023-02-28 00:00 | heart_rate | 73 | /min | + + + + + | 2023-02-28 00:00 | height_metric | 160.02 | cm | + + + + + | 2023-02-28 00:00 | height_standard | 63 | in | + + + + + | 2023-02-28 00:00 | o2_saturation | 100 | % | + + + + + | 2023-02-28 00:00 | respiration_rate | 17 | /min | + + + + + | 2023-02-28 00:00 | temperature_metric | 36.83 | C | | | | | | + + + + + | 2023-02-28 00:00 | | 98.3 | F | | | temperature_standar | | | | | d | | | + + + + + | 2023-02-28 00:00 | weight_metric | 123.83 | kg | + + + + + | 2023-02-28 00:00 | weight_standard | 273 | lb | + + + + +"
--- OUTSIDE RECORDS SUMMARY | ~2023-04-16 | XMS | Continuity of Care Document ---
Demographics + + + | Address | [address] | | | [place] [address] | + + + | Preferred Language | Unknown | + + + | Marital Status | | + + + | Latter Day Affiliation | Unknown | + + + | Race | White | + + + | Ethnic Group | Not or | + + + Author + + + | Author | [facility] | + + + | Organization | [facility] | + + + | Address | [address] | | | [place] [address] | + + + | Phone | | + + + Care Team Providers + + + + | Care Workers Compensation Claims Analyst Name | Role | Phone | [...] | (no severity) | | | | Mairta PRADHAN | | | + + + [...] + | 2023-02-24 00:00 | Tdap | [facility] | + + + + | 2023-02-24 00:00 | Tdap | [facility] | + + + + Medications + + + + | date | description | facility | + + + + | 2022-05-01 00:00 | CETIRIZINE HCL | [facility] | + + + + | 2022-05-27 00:00 | CETIRIZINE HCL | [facility] | + + + + | 2022-08-26 00:00 | CETIRIZINE HCL | [facility] | + + + + | 2022-09-21 00:00 | CETIRIZINE HCL | [facility] | + + + + | 2022-09-23 00:00 | CETIRIZINE HCL | [facility] | + + + + | 2022-11-10 00:00 | CETIRIZINE HCL | [facility] | + + + + | 2022-12-08 00:00 | CETIRIZINE HCL | [facility] | + + + + | 2022-12-21 00:00 | CETIRIZINE HCL | [facility] | + + + + | 2023-02-18 00:00 | CETIRIZINE HCL | [facility] | + + + + | 2023-02-24 00:00 | CETIRIZINE HCL | [facility] | + + + + | 2023-02-28 00:00 | CETIRIZINE HCL | [facility] | + + + + | 2022-05-01 00:00 | LURASIDONE HCL | [facility] | + + + + | 2022-05-27 00:00 | LURASIDONE HCL | [facility] | + + + + | 2022-08-26 00:00 | LURASIDONE HCL | [facility] | + + + + | 2022-09-21 00:00 | LURASIDONE HCL | [facility] | + + + + | 2022-09-23 00:00 | LURASIDONE HCL | [facility] | + + + + | 2022-11-10 00:00 | LURASIDONE HCL | [facility] | + + + + | 2022-12-08 00:00 | LURASIDONE HCL | [facility] | + + + + | 2022-12-21 00:00 | LURASIDONE HCL | [facility] | + + + + | 2023-02-18 00:00 | LURASIDONE HCL | [facility] | + + + + | 2023-02-24 00:00 | LURASIDONE HCL | [facility] | + + + + | 2023-02-28 00:00 | LURASIDONE HCL | [facility] | + + + + | 2022-05-01 00:00 | ONDANSETRON HCL | [facility] | + + + + | 2022-05-27 00:00 | ONDANSETRON HCL | [facility] | + + + + | 2022-08-26 00:00 | ONDANSETRON HCL | [facility] | + + + + | 2022-09-21 00:00 | ONDANSETRON HCL | [facility] | + + + + | 2022-09-23 00:00 | ONDANSETRON HCL | [facility] | + + + + | 2022-11-10 00:00 | ONDANSETRON HCL | [facility] | + + + + | 2022-12-08 00:00 | ONDANSETRON HCL | [facility] | + + + + | 2022-12-21 00:00 | ONDANSETRON HCL | [facility] | + + + + | 2023-02-18 00:00 | ONDANSETRON HCL | [facility] | + + + + | 2023-02-24 00:00 | ONDANSETRON HCL | [facility] | + + + + | 2023-02-28 00:00 | ONDANSETRON HCL | [facility] | + + + + | 2020-02-07 00:00 | VALACYCLOVIR HCL | [facility] | + + + + | 2020-02-07 00:00 | VALACYCLOVIR HCL | [facility] | + + + + | 2020-02-07 00:00 | VALACYCLOVIR HCL | [facility] | + + + + | 2020-02-07 00:00 | VALACYCLOVIR HCL | [facility] | + + + + | 2020-02-07 00:00 | VALACYCLOVIR HCL | [facility] | + + + + | 2020-02-07 00:00 | VALACYCLOVIR HCL | [facility] | + + + + | 2022-09-11 00:00 | Amitriptyline HCl 100 MG | [facility] | | | Oral Tablet | | + + + + | 2022-09-11 00:00 | LORazepam 1 MG Oral Tablet | [facility] | | | | | + + + + | 2022-05-01 00:00 | POTASSIUM GLUCONATE | [facility] | + + + + | 2022-05-27 00:00 | POTASSIUM GLUCONATE | [facility] | + + + + | 2022-08-26 00:00 | POTASSIUM GLUCONATE | [facility] | + + + + | 2022-09-21 00:00 | POTASSIUM GLUCONATE | [facility] | + + + + | 2022-09-23 00:00 | POTASSIUM GLUCONATE | [facility] | + + + + | 2022-11-10 00:00 | POTASSIUM GLUCONATE | [facility] | + + + + | 2022-12-08 00:00 | POTASSIUM GLUCONATE | [facility] | + + + + | 2022-12-21 00:00 | POTASSIUM GLUCONATE | [facility] | + + + + | 2023-02-18 00:00 | POTASSIUM GLUCONATE | [facility] | + + + + | 2023-02-24 00:00 | POTASSIUM GLUCONATE | [facility] | + + + + | 2023-02-28 00:00 | POTASSIUM GLUCONATE | [facility] | + + + + | 2022-05-01 00:00 | LURASIDONE HCL | [facility] | + + + + | 2022-05-27 00:00 | LURASIDONE HCL | [facility] | + + + + | 2022-08-26 00:00 | LURASIDONE HCL | [facility] | + + + + | 2022-09-21 00:00 | LURASIDONE HCL | [facility] | + + + + | 2022-09-23 00:00 | LURASIDONE HCL | [facility] | + + + + | 2022-11-10 00:00 | LURASIDONE HCL | [facility] | + + + + | 2022-12-08 00:00 | LURASIDONE HCL | [facility] | + + + + | 2022-12-21 00:00 | LURASIDONE HCL | [facility] | + + + + | 2023-02-18 00:00 | LURASIDONE HCL | [facility] | + + + + | 2023-02-24 00:00 | LURASIDONE HCL | [facility] | + + + + | 2023-02-28 00:00 | LURASIDONE HCL | [facility] | + + + + | 2022-09-11 00:00 | lurasidone hydrochloride | [facility] | | | 120 MG Oral Tablet [Latuda] | | | | | | + + + + | 2022-09-11 00:00 | fluvoxaMINE Maleate ER 100 | [facility] | | | MG Oral Capsule Extended | | | | Release 24 Hour | | + + + + | 2022-05-01 00:00 | METRONIDAZOLE | [facility] | + + + + | 2022-05-27 00:00 | METRONIDAZOLE | [facility] | + + + + | 2022-08-26 00:00 | METRONIDAZOLE | [facility] | + + + + | 2022-09-21 00:00 | METRONIDAZOLE | [facility] | + + + + | 2022-09-23 00:00 | METRONIDAZOLE | [facility] | + + + + | 2022-11-10 00:00 | METRONIDAZOLE | [facility] | + + + + | 2022-12-08 00:00 | METRONIDAZOLE | [facility] | + + + + | 2022-12-21 00:00 | METRONIDAZOLE | [facility] | + + + + | 2023-02-18 00:00 | METRONIDAZOLE | [facility] | + + + + | 2023-02-24 00:00 | METRONIDAZOLE | [facility] | + + + + | 2023-02-28 00:00 | METRONIDAZOLE | [facility] | + + + + | 2022-05-01 00:00 | MELOXICAM | [facility] | + + + + | 2022-05-27 00:00 | MELOXICAM | [facility] | + + + + | 2022-08-26 00:00 | MELOXICAM | [facility] | + + + + | 2022-09-21 00:00 | MELOXICAM | [facility] | + + + + | 2022-09-23 00:00 | MELOXICAM | [facility] | + + + + | 2022-11-10 00:00 | MELOXICAM | [facility] | + + + + | 2022-12-08 00:00 | MELOXICAM | [facility] | + + + + | 2022-12-21 00:00 | MELOXICAM | [facility] | + + + + | 2023-02-18 00:00 | MELOXICAM | [facility] | + + + + | 2023-02-24 00:00 | MELOXICAM | [facility] | + + + + | 2023-02-28 00:00 | MELOXICAM | [facility] | + + + + | 2022-05-01 00:00 | Insulin | [facility] | | | SaranyaHum.rec.anlog | | + + + + | 2022-05-27 00:00 | Insulin | [facility] | | | Glalakeshia,Hum.rec.anlog | | + + + + | 2022-08-26 00:00 | Insulin | [facility] | | | Glalakeshia,Hum.rec.anlog | | + + + + | 2022-09-21 00:00 | Insulin | [facility] | | | Glanoreene,Hum.rec.anlog | | + + + + | 2022-09-23 00:00 | Insulin | [facility] | | | Glalakeshia,Hum.rec.anlog | | + + + + | 2022-11-10 00:00 | Insulin | [facility] | | | Glanoreene,Hum.rec.anlog | | + + + + | 2022-12-08 00:00 | Insulin | [facility] | | | Glargine,Hum.rec.anlog | | + + + + | 2022-12-21 00:00 | Insulin | [facility] | | | [facility] [place] | | + + + + | 2023-02-18 00:00 | Insulin | [facility] | | | [facility] [place] | | + + + + | 2023-02-24 00:00 | Insulin | [facility] | | | [facility] [place] | | + + + + | 2023-02-28 00:00 | Insulin | [facility] | | | Hum. SaranyarecArmenanlog | | + + + + | 2022-09-11 00:00 | Prazosin HCl 2 MG Oral | [facility] | | | Capsule | | + + + + | 2022-09-11 00:00 | Prazosin HCl 5 MG Oral | [facility] | | | Capsule | | + + + + | 2022-09-11 00:00 | Latuda 120 MG Oral Tablet | [facility] | | | | | + + + + | 2022-09-11 00:00 | Promethazine HCl 25 MG | [facility] | | | Oral Tablet | | + + + + | 2022-05-01 00:00 | FLUTICASONE PROPIONATE 50 | [facility] | | | MCG | | + + + + | 2022-05-27 00:00 | FLUTICASONE PROPIONATE 50 | [facility] | | | MCG | | + + + + | 2022-08-26 00:00 | FLUTICASONE PROPIONATE 50 | [facility] | | | MCG | | + + + + | 2022-09-21 00:00 | FLUTICASONE PROPIONATE 50 | [facility] | | | MCG | | + + + + | 2022-09-23 00:00 | FLUTICASONE PROPIONATE 50 | [facility] | | | MCG | | + + + + | 2022-11-10 00:00 | FLUTICASONE PROPIONATE 50 | [facility] | | | MCG | | + + + + | 2022-12-08 00:00 | FLUTICASONE PROPIONATE 50 | [facility] | | | MCG | | + + + + | 2022-12-21 00:00 | FLUTICASONE PROPIONATE 50 | [facility] | | | MCG | | + + + + | 2023-02-18 00:00 | FLUTICASONE PROPIONATE 50 | [facility] | | | MCG | | + + + + | 2023-02-24 00:00 | FLUTICASONE PROPIONATE 50 | [facility] | | | MCG | | + + + + | 2023-02-28 00:00 | FLUTICASONE PROPIONATE 50 | [facility] | | | MCG | | + + + + | 2022-05-01 00:00 | AGALSIDASE BETA | [facility] | + + + + | 2022-05-27 00:00 | AGALSIDASE BETA | [facility] | + + + + | 2022-08-26 00:00 | AGALSIDASE BETA | [facility] | + + + + | 2022-09-21 00:00 | AGALSIDASE BETA | [facility] | + + + + | 2022-09-23 00:00 | AGALSIDASE BETA | [facility] | + + + + | 2022-11-10 00:00 | AGALSIDASE BETA | [facility] | + + + + | 2022-12-08 00:00 | AGALSIDASE BETA | [facility] | + + + + | 2022-12-21 00:00 | AGALSIDASE BETA | [facility] | + + + + | 2023-02-18 00:00 | AGALSIDASE BETA | [facility] | + + + + | 2023-02-24 00:00 | AGALSIDASE BETA | [facility] | + + + + | 2023-02-28 00:00 | AGALSIDASE BETA | [facility] | + + + + | 2022-05-01 00:00 | ESTRADIOL | [facility] | + + + + | 2022-05-27 00:00 | ESTRADIOL | [facility] | + + + + | 2022-08-26 00:00 | ESTRADIOL | [facility] | + + + + | 2022-09-21 00:00 | ESTRADIOL | [facility] | + + + + | 2022-09-23 00:00 | ESTRADIOL | [facility] | + + + + | 2022-11-10 00:00 | ESTRADIOL | [facility] | + + + + | 2022-12-08 00:00 | ESTRADIOL | [facility] | + + + + | 2022-12-21 00:00 | ESTRADIOL | [facility] | + + + + | 2023-02-18 00:00 | ESTRADIOL | [facility] | + + + + | 2023-02-24 00:00 | ESTRADIOL | [facility] | + + + + | 2023-02-28 00:00 | ESTRADIOL | [facility] | + + + + | 2022-05-01 00:00 | LORAZEPAM | [facility] | + + + + | 2022-05-27 00:00 | LORAZEPAM | [facility] | + + + + | 2022-08-26 00:00 | LORAZEPAM | [facility] | + + + + | 2022-09-21 00:00 | LORAZEPAM | [facility] | + + + + | 2022-09-11 00:00 | lorazepam 1 MG Oral Tablet | [facility] | | | | | + + + + | 2022-05-01 00:00 | OMEPRAZOLE | [facility] | + + + + | 2022-05-27 00:00 | OMEPRAZOLE | [facility] | + + + + | 2022-08-26 00:00 | OMEPRAZOLE | [facility] | + + + + | 2022-09-21 00:00 | OMEPRAZOLE | [facility] | + + + + | 2022-09-23 00:00 | OMEPRAZOLE | [facility] | + + + + | 2022-11-10 00:00 | OMEPRAZOLE | [facility] | + + + + | 2022-05-01 00:00 | ONDANSETRON HCL | [facility] | + + + + | 2022-05-27 00:00 | ONDANSETRON HCL | [facility] | + + + + | 2022-08-26 00:00 | ONDANSETRON HCL | [facility] | + + + + | 2022-09-21 00:00 | ONDANSETRON HCL | [facility] | + + + + | 2022-09-23 00:00 | ONDANSETRON HCL | [facility] | + + + + | 2022-11-10 00:00 | ONDANSETRON HCL | [facility] | + + + + | 2022-12-08 00:00 | ONDANSETRON HCL | [facility] | + + + + | 2022-12-21 00:00 | ONDANSETRON HCL | [facility] | + + + + | 2023-02-18 00:00 | ONDANSETRON HCL | [facility] | + + + + | 2023-02-24 00:00 | ONDANSETRON HCL | [facility] | + + + + | 2023-02-28 00:00 | ONDANSETRON HCL | [facility] | + + + + | 2022-05-01 00:00 | PRAZOSIN HCL | [facility] | + + + + | 2022-05-27 00:00 | PRAZOSIN HCL | [facility] | + + + + | 2022-08-26 00:00 | PRAZOSIN HCL | [facility] | + + + + | 2022-09-21 00:00 | PRAZOSIN HCL | [facility] | + + + + | 2022-09-23 00:00 | PRAZOSIN HCL | [facility] | + + + + | 2022-11-10 00:00 | PRAZOSIN HCL | [facility] | + + + + | 2022-12-08 00:00 | PRAZOSIN HCL | [facility] | + + + + | 2022-12-21 00:00 | PRAZOSIN HCL | [facility] | + + + + | 2023-02-18 00:00 | PRAZOSIN HCL | [facility] | + + + + | 2023-02-24 00:00 | PRAZOSIN HCL | [facility] | + + + + | 2023-02-28 00:00 | PRAZOSIN HCL | [facility] | + + + + | 2022-09-11 00:00 | prazosin 5 MG Oral Capsule | [facility] | | | | | + + + + | 2021-05-07 00:00 | LEVOFLOXACIN | [facility] | + + + + | 2021-05-07 00:00 | LEVOFLOXACIN | [facility] | + + + + | 2021-05-07 00:00 | LEVOFLOXACIN | [facility] | + + + + | 2021-05-07 00:00 | LEVOFLOXACIN | [facility] | + + + + | 2021-05-07 00:00 | LEVOFLOXACIN | [facility] | + + + + | 2021-05-07 00:00 | LEVOFLOXACIN | [facility] | + + + + | 2022-05-01 00:00 | MONTELUKAST SODIUM | [facility] | + + + + | 2022-05-27 00:00 | MONTELUKAST SODIUM | [facility] | + + + + | 2022-08-26 00:00 | MONTELUKAST SODIUM | [facility] | + + + + | 2022-09-21 00:00 | MONTELUKAST SODIUM | [facility] | + + + + | 2022-09-23 00:00 | MONTELUKAST SODIUM | [facility] | + + + + | 2022-11-10 00:00 | MONTELUKAST SODIUM | [facility] | + + + + | 2022-12-08 00:00 | MONTELUKAST SODIUM | [facility] | + + + + | 2022-12-21 00:00 | MONTELUKAST SODIUM | [facility] | + + + + | 2023-02-18 00:00 | MONTELUKAST SODIUM | [facility] | + + + + | 2023-02-24 00:00 | MONTELUKAST SODIUM | [facility] | + + + + | 2023-02-28 00:00 | MONTELUKAST SODIUM | [facility] | + + + + | 2022-09-11 00:00 | omeprazole 20 MG | [facility] | | | Disintegrating Oral Tablet | | + + + + | 2022-05-01 00:00 | FUROSEMIDE | [facility] | + + + + | 2022-05-27 00:00 | FUROSEMIDE | [facility] | + + + + | 2022-08-26 00:00 | FUROSEMIDE | [facility] | + + + + | 2022-09-21 00:00 | FUROSEMIDE | [facility] | + + + + | 2022-09-23 00:00 | FUROSEMIDE | [facility] | + + + + | 2022-11-10 00:00 | FUROSEMIDE | [facility] | + + + + | 2022-12-08 00:00 | FUROSEMIDE | [facility] | + + + + | 2022-12-21 00:00 | FUROSEMIDE | [facility] | + + + + | 2023-02-18 00:00 | FUROSEMIDE | [facility] | + + + + | 2023-02-24 00:00 | FUROSEMIDE | [facility] | + + + + | 2023-02-28 00:00 | FUROSEMIDE | [facility] | + + + + | 2022-09-11 00:00 | Omeprazole 20 MG Oral | [facility] | | | Tablet Delayed Release | | | | Disintegrating | | + + + + | 2022-09-10 00:00 | hydrocortisone 10 MG/ML / | [facility] | | | neomycin 3.5 MG/ML / | | | | polymyxin B [id number] UNT/ML | | | | Otic Solution | | + + + + | 2022-09-12 00:00 | hydrocortisone 10 MG/ML / | [facility] | | | neomycin 3.5 MG/ML / | | | | polymyxin B [id number] UNT/ML | | | | Otic Solution | | + + + + | 2015-04-07 00:00 | CLARITHROMYCIN | [facility] | + + + + | 2015-04-07 00:00 | CLARITHROMYCIN | [facility] | + + + + | 2015-04-07 00:00 | CLARITHROMYCIN | [facility] | + + + + | 2015-04-07 00:00 | CLARITHROMYCIN | [facility] | + + + + | 2015-04-07 00:00 | CLARITHROMYCIN | [facility] | + + + + | 2015-04-07 00:00 | CLARITHROMYCIN | [facility] | + + + + | 2022-05-01 00:00 | LORAZEPAM | [facility] | + + + + | 2022-05-27 00:00 | LORAZEPAM | [facility] | + + + + | 2022-08-26 00:00 | LORAZEPAM | [facility] | + + + + | 2022-09-21 00:00 | LORAZEPAM | [facility] | + + + + | 2022-09-23 00:00 | LORAZEPAM | [facility] | + + + + | 2022-11-10 00:00 | LORAZEPAM | [facility] | + + + + | 2022-12-08 00:00 | LORAZEPAM | [facility] | + + + + | 2022-12-21 00:00 | LORAZEPAM | [facility] | + + + + | 2023-02-18 00:00 | LORAZEPAM | [facility] | + + + + | 2023-02-24 00:00 | LORAZEPAM | [facility] | + + + + | 2023-02-28 00:00 | LORAZEPAM | [facility] | + + + + | 2021-05-07 00:00 | METOCLOPRAMIDE HCL | [facility] | + + + + | 2021-05-07 00:00 | METOCLOPRAMIDE HCL | [facility] | + + + + | 2021-05-07 00:00 | METOCLOPRAMIDE HCL | [facility] | + + + + | 2021-05-07 00:00 | METOCLOPRAMIDE HCL | [facility] | + + + + | 2021-05-07 00:00 | METOCLOPRAMIDE HCL | [facility] | + + + + | 2021-05-07 00:00 | METOCLOPRAMIDE HCL | [facility] | + + + + | 2021-06-06 00:00 | METOCLOPRAMIDE HCL | [facility] | + + + + | 2021-06-06 00:00 | METOCLOPRAMIDE HCL | [facility] | + + + + | 2022-02-23 00:00 | METOCLOPRAMIDE HCL | [facility] | + + + + | 2022-02-23 00:00 | METOCLOPRAMIDE HCL | [facility] | + + + + | 2022-04-24 00:00 | METOCLOPRAMIDE HCL | [facility] | + + + + | 2022-04-24 00:00 | METOCLOPRAMIDE HCL | [facility] | + + + + | 2019-11-09 00:00 | METRONIDAZOLE | [facility] | + + + + | 2019-11-09 00:00 | METRONIDAZOLE | [facility] | + + + + | 2019-11-09 00:00 | METRONIDAZOLE | [facility] | + + + + 2019-11-09 00:00 | METRONIDAZOLE | [facility] | + + + + | 2019-11-09 00:00 | METRONIDAZOLE | [facility] | + + + + | 2019-11-09 00:00 | METRONIDAZOLE | [facility] | + + + + | 2022-12-04 00:00 | Nella Delica Plus | [facility] | | | [id number] Miscellaneous | | + + + + | 2022-09-23 00:00 | SUCRALFATE | [facility] | + + + + | 2022-05-01 00:00 | PRAZOSIN HCL | [facility] | + + + + | 2022-05-27 00:00 | PRAZOSIN HCL | [facility] | + + + + | 2022-08-26 00:00 | PRAZOSIN HCL | [facility] | + + + + | 2022-09-21 00:00 | PRAZOSIN HCL | [facility] | + + + + | 2022-09-23 00:00 | PRAZOSIN HCL | [facility] | + + + + | 2022-11-10 00:00 | PRAZOSIN HCL | [facility] | + + + + | 2022-12-08 00:00 | PRAZOSIN HCL | [facility] | + + + + | 2022-12-21 00:00 | PRAZOSIN HCL | [facility] | + + + + | 2023-02-18 00:00 | PRAZOSIN HCL | [facility] | + + + + | 2023-02-24 00:00 | PRAZOSIN HCL | [facility] | + + + + | 2023-02-28 00:00 | PRAZOSIN HCL | [facility] | + + + + | 2019-11-09 00:00 | LEVOFLOXACIN | [facility] | + + + + | 2019-11-09 00:00 | LEVOFLOXACIN | [facility] | + + + + | 2019-11-09 00:00 | LEVOFLOXACIN | [facility] | + + + + | 2019-11-09 00:00 | LEVOFLOXACIN | [facility] | + + + + | 2019-11-09 00:00 | LEVOFLOXACIN | [facility] | + + + + | 2019-11-09 00:00 | LEVOFLOXACIN | [facility] | + + + + | 2015-08-17 00:00 | CEPHALEXIN | [facility] | + + + + | 2015-08-17 00:00 | CEPHALEXIN | [facility] | + + + + | 2015-08-17 00:00 | CEPHALEXIN | [facility] | + + + + | 2015-08-17 00:00 | CEPHALEXIN | [facility] | + + + + | 2015-08-17 00:00 | CEPHALEXIN | [facility] | + + + + | 2015-08-17 00:00 | CEPHALEXIN | [facility] | + + + + | 2022-12-08 00:00 | AZITHROMYCIN | [facility] | + + + + | 2022-12-08 00:00 | AZITHROMYCIN | [facility] | + + + + | 2022-12-08 00:00 | AZITHROMYCIN | [facility] | + + + + | 2022-05-01 00:00 | ALPRAZOLAM | [facility] | + + + + | 2022-05-27 00:00 | ALPRAZOLAM | [facility] | + + + + | 2022-08-26 00:00 | ALPRAZOLAM | [facility] | + + + + | 2022-09-21 00:00 | ALPRAZOLAM | [facility] | + + + + | 2022-09-23 00:00 | ALPRAZOLAM | [facility] | + + + + | 2022-11-10 00:00 | ALPRAZOLAM | [facility] | + + + + | 2022-12-08 00:00 | ALPRAZOLAM | [facility] | + + + + | 2022-12-21 00:00 | ALPRAZOLAM | [facility] | + + + + | 2023-02-18 00:00 | ALPRAZOLAM | [facility] | + + + + | 2023-02-24 00:00 | ALPRAZOLAM | [facility] | + + + + | 2023-02-28 00:00 | ALPRAZOLAM | [facility] | + + + + | 2022-05-01 00:00 | ESTRADIOL | [facility] | + + + + | 2022-05-27 00:00 | ESTRADIOL | [facility] | + + + + | 2022-08-26 00:00 | ESTRADIOL | [facility] | + + + + | 2022-09-21 00:00 | ESTRADIOL | [facility] | + + + + | 2022-09-23 00:00 | ESTRADIOL | [facility] | + + + + | 2022-11-10 00:00 | ESTRADIOL | [facility] | + + + + | 2022-12-08 00:00 | ESTRADIOL | [facility] | + + + + | 2022-12-21 00:00 | ESTRADIOL | [facility] | + + + + | 2023-02-18 00:00 | ESTRADIOL | [facility] | + + + + | 2023-02-24 00:00 | ESTRADIOL | [facility] | + + + + | 2023-02-28 00:00 | ESTRADIOL | [facility] | + + + + | 2022-05-01 00:00 | BIOTIN | [facility] | + + + + | 2022-05-27 00:00 | BIOTIN | [facility] | + + + + | 2022-08-26 00:00 | BIOTIN | [facility] | + + + + | 2022-09-21 00:00 | BIOTIN | [facility] | + + + + | 2022-09-23 00:00 | BIOTIN | [facility] | + + + + | 2022-11-10 00:00 | BIOTIN | [facility] [facility] | + + + + | 2022-12-08 00:00 | BIOTIN | [facility] | + + + + | 2022-12-21 00:00 | BIOTIN | [facility] | + + + + | 2023-02-18 00:00 | BIOTIN | [facility] | + + + + | 2023-02-24 00:00 | BIOTIN | [facility] | + + + + | 2023-02-28 00:00 | BIOTIN | [facility] | + + + + | 2013-07-16 00:00 | CLINDAMYCIN HCL | [facility] | + + + + | 2013-07-16 00:00 | CLINDAMYCIN HCL | [facility] | + + + + | 2013-07-16 00:00 | CLINDAMYCIN HCL | [facility] | + + + + | 2013-07-16 00:00 | CLINDAMYCIN HCL | [facility] | + + + + | 2013-07-16 00:00 | CLINDAMYCIN HCL | [facility] | + + + + | 2013-07-16 00:00 | CLINDAMYCIN HCL | [facility] | + + + + | 2018-10-09 00:00 | CLINDAMYCIN HCL | [facility] | + + + + | 2018-10-09 00:00 | CLINDAMYCIN HCL | [facility] | + + + + | 2018-10-09 00:00 | CLINDAMYCIN HCL | [facility] | + + + + | 2018-10-09 00:00 | CLINDAMYCIN HCL | [facility] | + + + + | 2018-10-09 00:00 | CLINDAMYCIN HCL | [facility] | + + + + | 2018-10-09 00:00 | CLINDAMYCIN HCL | [facility] | + + + + | 2022-11-10 00:00 | CLINDAMYCIN HCL | [facility] | + + + + | 2022-09-23 00:00 | PANTOPRAZOLE SODIUM | [facility] | + + + + | 2022-05-01 00:00 | ZIPRASIDONE HCL | [facility] | + + + + | 2022-05-27 00:00 | ZIPRASIDONE HCL | [facility] | + + + + | 2022-08-26 00:00 | ZIPRASIDONE HCL | [facility] | + + + + | 2022-09-21 00:00 | ZIPRASIDONE HCL | [facility] | + + + + | 2022-09-23 00:00 | ZIPRASIDONE HCL | [facility] | + + + + | 2022-11-10 00:00 | ZIPRASIDONE HCL | [facility] | + + + + | 2022-12-08 00:00 | ZIPRASIDONE HCL | [facility] | + + + + | 2022-12-21 00:00 | ZIPRASIDONE HCL | [facility] | + + + + | 2023-02-18 00:00 | ZIPRASIDONE HCL | [facility] | + + + + | 2023-02-24 00:00 | ZIPRASIDONE HCL | [facility] | + + + + | 2023-02-28 00:00 | ZIPRASIDONE HCL | [facility] | + + + + | 2022-09-11 00:00 | carbamazepine 200 MG Oral | [facility] | | | Tablet | | + + + + | 2022-09-21 00:00 | Clotrimazole | [facility] | + + + + | 2022-10-01 00:00 | Sucralfate 1 GM Oral | [facility] | | | Tablet | | + + + + | 2020-02-07 00:00 | Erythromycin Base | [facility] | + + + + | 2020-02-07 00:00 | Erythromycin Base | [facility] | + + + + | 2020-02-07 00:00 | Erythromycin Base | [facility] | + + + + | 2020-02-07 00:00 | Erythromycin Base | [facility] | + + + + | 2020-02-07 00:00 | Erythromycin Base | [facility] | + + + + | 2020-02-07 00:00 | Erythromycin Base | [facility] | + + + + | 2022-05-01 00:00 | LISINOPRIL | [facility] | + + + + | 2022-05-27 00:00 | LISINOPRIL | [facility] | + + + + | 2022-08-26 00:00 | LISINOPRIL | [facility] | + + + + | 2022-09-21 00:00 | LISINOPRIL | [facility] | + + + + | 2022-09-23 00:00 | LISINOPRIL | [facility] | + + + + | 2022-11-10 00:00 | LISINOPRIL | [facility] | + + + + | 2022-12-08 00:00 | LISINOPRIL | [facility] | + + + + | 2022-12-21 00:00 | LISINOPRIL | [facility] | + + + + | 2023-02-18 00:00 | LISINOPRIL | [facility] | + + + + | 2023-02-24 00:00 | LISINOPRIL | [facility] | + + + + | 2023-02-28 00:00 | LISINOPRIL | [facility] | + + + + | 2022-05-01 00:00 | ONDANSETRON | [facility] | + + + + | 2022-05-27 00:00 | ONDANSETRON | [facility] | + + + + | 2022-08-26 00:00 | ONDANSETRON | [facility] | + + + + | 2022-09-21 00:00 | ONDANSETRON | [facility] | + + + + | 2022-09-23 00:00 | ONDANSETRON | [facility] | + + + + | 2022-11-10 00:00 | ONDANSETRON | [facility] | + + + + | 2022-12-08 00:00 | ONDANSETRON | [facility] | + + + + | 2022-12-08 00:00 | ONDANSETRON | [facility] | + + + + | 2022-12-08 00:00 | ONDANSETRON | [facility] | + + + + | 2022-12-21 00:00 | ONDANSETRON | [facility] | + + + + | 2022-12-21 00:00 | ONDANSETRON | [facility] | + + + + | 2022-12-21 00:00 | ONDANSETRON | [facility] | + + + + | 2022-10-01 00:00 | ondansetron 8 MG | [facility] | | | Disintegrating Oral Tablet | | + + + + | 2023-01-01 00:00 | ondansetron 8 MG | [facility] | | | Disintegrating Oral Tablet | | + + + + | 2023-01-06 00:00 | ondansetron 8 MG | [facility] | | | Disintegrating Oral Tablet | | + + + + | 2022-05-01 00:00 | PRAZOSIN HCL | [facility] | + + + + | 2022-05-27 00:00 | PRAZOSIN HCL | [facility] | + + + + | 2022-08-26 00:00 | PRAZOSIN HCL | [facility] | + + + + | 2022-09-21 00:00 | PRAZOSIN HCL | [facility] | + + + + | 2022-09-23 00:00 | PRAZOSIN HCL | [facility] | + + + + | 2022-11-10 00:00 | PRAZOSIN HCL | [facility] | + + + + | 2022-12-08 00:00 | PRAZOSIN HCL | [facility] | + + + + | 2022-12-21 00:00 | PRAZOSIN HCL | [facility] | + + + + | 2023-02-18 00:00 | PRAZOSIN HCL | [facility] | + + + + | 2023-02-24 00:00 | PRAZOSIN HCL | [facility] | + + + + | 2023-02-28 00:00 | PRAZOSIN HCL | [facility] | + + + + | 2022-09-11 00:00 | prazosin 2 MG Oral Capsule | [facility] | | | | | + + + + | 2015-04-07 00:00 | predniSONE | [facility] | + + + + | 2015-04-07 00:00 | predniSONE | [facility] | + + + + | 2015-04-07 00:00 | predniSONE | [facility] | + + + + | 2015-04-07 00:00 | predniSONE | [facility] | + + + + | 2015-04-07 00:00 | predniSONE | [facility] | + + + + | 2015-04-07 00:00 | predniSONE | [facility] | + + + + | 2022-12-08 00:00 | predniSONE | [facility] | + + + + | 2022-12-08 00:00 | predniSONE | [facility] | + + + + | 2022-12-08 00:00 | predniSONE | [facility] | + + + + | 2022-05-01 00:00 | QUETIAPINE FUMARATE | [facility] | + + + + | 2022-05-27 00:00 | QUETIAPINE FUMARATE | [facility] | + + + + | 2022-08-26 00:00 | QUETIAPINE FUMARATE | [facility] | + + + + | 2022-09-21 00:00 | QUETIAPINE FUMARATE | [facility] | + + + + | 2022-09-23 00:00 | QUETIAPINE FUMARATE | [facility] | + + + + | 2022-11-10 00:00 | QUETIAPINE FUMARATE | [facility] | + + + + | 2022-12-08 00:00 | QUETIAPINE FUMARATE | [facility] | + + + + | 2022-12-21 00:00 | QUETIAPINE FUMARATE | [facility] | + + + + | 2023-02-18 00:00 | QUETIAPINE FUMARATE | [facility] | + + + + | 2023-02-24 00:00 | QUETIAPINE FUMARATE | [facility] | + + + + | 2023-02-28 00:00 | QUETIAPINE FUMARATE | [facility] | + + + + | 2022-05-01 00:00 | SUMATRIPTAN SUCCINATE | [facility] | + + + + | 2022-05-27 00:00 | SUMATRIPTAN SUCCINATE | [facility] | + + + + | 2022-08-26 00:00 | SUMATRIPTAN SUCCINATE | [facility] | + + + + | 2022-09-21 00:00 | SUMATRIPTAN SUCCINATE | [facility] | + + + + | 2022-09-23 00:00 | SUMATRIPTAN SUCCINATE | [facility] | + + + + | 2022-11-10 00:00 | SUMATRIPTAN SUCCINATE | [facility] | + + + + | 2022-12-08 00:00 | SUMATRIPTAN SUCCINATE | [facility] | + + + + | 2022-12-21 00:00 | SUMATRIPTAN SUCCINATE | [facility] | + + + + | 2023-02-18 00:00 | SUMATRIPTAN SUCCINATE | [facility] | + + + + | 2023-02-24 00:00 | SUMATRIPTAN SUCCINATE | [facility] | + + + + | 2023-02-28 00:00 | SUMATRIPTAN SUCCINATE | [facility] | + + + + | 2022-05-01 00:00 | VALACYCLOVIR HCL | [facility] | + + + + | 2022-05-27 00:00 | VALACYCLOVIR HCL | [facility] | + + + + | 2022-08-26 00:00 | VALACYCLOVIR HCL | [facility] | + + + + | 2022-09-21 00:00 | VALACYCLOVIR HCL | [facility] | + + + + | 2022-09-23 00:00 | VALACYCLOVIR HCL | [facility] | + + + + | 2022-11-10 00:00 | VALACYCLOVIR HCL | [facility] | + + + + | 2022-09-11 00:00 | valacyclovir 500 MG Oral | [facility] | | | Tablet | | + + + + | 2022-10-07 00:00 | valacyclovir 500 MG Oral | [facility] | | | Tablet | | + + + + | 2022-11-10 00:00 | FUROSEMIDE | [facility] | + + + + | 2022-12-08 00:00 | FUROSEMIDE | [facility] | + + + + | 2022-12-21 00:00 | FUROSEMIDE | [facility] | + + + + | 2023-02-18 00:00 | FUROSEMIDE | [facility] | + + + + | 2023-02-24 00:00 | FUROSEMIDE | [facility] | + + + + | 2023-02-28 00:00 | FUROSEMIDE | [facility] | + + + + | [...] + | 2022-05-01 00:00 | GLIPIZIDE | [facility] | + + + + | 2022-05-27 00:00 | GLIPIZIDE | [facility] | + + + + | 2022-08-26 00:00 | GLIPIZIDE | [facility] | + + + + | 2022-09-21 00:00 | GLIPIZIDE | [facility] | + + + + | 2022-09-23 00:00 | GLIPIZIDE | [facility] | + + + + | 2022-11-10 00:00 | GLIPIZIDE | [facility] | + + + + | 2022-12-08 00:00 | GLIPIZIDE | [facility] | + + + + | 2022-12-21 00:00 | GLIPIZIDE | [facility] | + + + + | 2023-02-18 00:00 | GLIPIZIDE | [facility] | + + + + | 2023-02-24 00:00 | GLIPIZIDE | [facility] | + + + + | 2023-02-28 00:00 | GLIPIZIDE | [facility] | + + + + | 2022-09-11 00:00 | Zolpidem Tartrate 10 MG | [facility] | | | Oral Tablet | | + + + + | 2022-09-11 00:00 | Meclizine HCl 25 MG Oral | [facility] | | | Tablet | | + + + + | 2022-05-01 00:00 | PANTOPRAZOLE SODIUM | [facility] | + + + + | 2022-05-27 00:00 | PANTOPRAZOLE SODIUM | [facility] | + + + + | 2022-08-26 00:00 | PANTOPRAZOLE SODIUM | [facility] | + + + + | 2022-09-21 00:00 | PANTOPRAZOLE SODIUM | [facility] | + + + + | 2022-09-23 00:00 | PANTOPRAZOLE SODIUM | [facility] | + + + + | 2022-11-10 00:00 | PANTOPRAZOLE SODIUM | [facility] | + + + + | 2022-12-08 00:00 | PANTOPRAZOLE SODIUM | [facility] | + + + + | 2022-12-21 00:00 | PANTOPRAZOLE SODIUM | [facility] | + + + + | 2023-02-18 00:00 | PANTOPRAZOLE SODIUM | [facility] | + + + + | 2023-02-24 00:00 | PANTOPRAZOLE SODIUM | [facility] | + + + + | 2023-02-28 00:00 | PANTOPRAZOLE SODIUM | [facility] | + + + + | 2022-09-11 00:00 | valACYclovir HCl 500 MG | [facility] | | | Oral Tablet | | + + + + | 2022-10-07 00:00 | valACYclovir HCl 500 MG | [facility] | | | Oral Tablet | | + + + + | 2022-09-11 00:00 | carBAMazepine 200 MG Oral | [facility] | | | Tablet | | + + + + | 2022-05-01 00:00 | Pregabalin | [facility] | + + + + | 2022-05-27 00:00 | Pregabalin | [facility] | + + + + | 2022-08-26 00:00 | Pregabalin | [facility] | + + + + | 2022-09-21 00:00 | Pregabalin | [facility] | + + + + | 2022-05-01 00:00 | Pregabalin | [facility] | + + + + | 2022-05-27 00:00 | Pregabalin | [facility] | + + + + | 2022-08-26 00:00 | Pregabalin | [facility] | + + + + | 2022-09-21 00:00 | Pregabalin | [facility] | + + + + | 2022-09-23 00:00 | Pregabalin | [facility] | + + + + | 2022-11-10 00:00 | Pregabalin | [facility] | + + + + | 2022-12-08 00:00 | Pregabalin | [facility] | + + + + | 2022-12-21 00:00 | Pregabalin | [facility] | + + + + | 2023-02-18 00:00 | Pregabalin | [facility] | + + + + | 2023-02-24 00:00 | Pregabalin | [facility] | + + + + | 2023-02-28 00:00 | Pregabalin | [facility] | + + + + | 2022-05-01 00:00 | NYSTATIN | [facility] | + + + + | 2022-05-27 00:00 | NYSTATIN | [facility] | + + + + | 2022-08-26 00:00 | NYSTATIN | [facility] | + + + + | 2022-09-21 00:00 | NYSTATIN | [facility] | + + + + | 2022-09-23 00:00 | NYSTATIN | [facility] | + + + + | 2022-11-10 00:00 | NYSTATIN | [facility] | + + + + | 2022-12-08 00:00 | NYSTATIN | [facility] | + + + + | 2022-12-21 00:00 | NYSTATIN | [facility] | + + + + | 2023-02-18 00:00 | NYSTATIN | [facility] | + + + + | 2023-02-24 00:00 | NYSTATIN | [facility] | + + + + | 2023-02-28 00:00 | NYSTATIN | [facility] | + + + + | 2022-09-11 00:00 | metFORMIN HCl 1000 MG Oral | [facility] | | | Tablet | | + + + + | 2022-10-01 00:00 | metFORMIN HCl 1000 MG Oral | [facility] | | | Tablet | | + + + + | 2022-12-17 00:00 | metFORMIN HCl 1000 MG Oral | [facility] | | | Tablet | | + + + + | 2022-05-01 00:00 | DULOXETINE HCL | [facility] | + + + + | 2022-05-27 00:00 | DULOXETINE HCL | [facility] | + + + + | 2022-08-26 00:00 | DULOXETINE HCL | [facility] | + + + + | 2022-09-21 00:00 | DULOXETINE HCL | [facility] | + + + + | 2022-09-23 00:00 | DULOXETINE HCL | [facility] | + + + + | 2022-11-10 00:00 | DULOXETINE HCL | [facility] | + + + + | 2022-12-08 00:00 | DULOXETINE HCL | [facility] | + + + + | 2022-12-21 00:00 | DULOXETINE HCL | [facility] | + + + + | 2023-02-18 00:00 | DULOXETINE HCL | [facility] | + + + + | 2023-02-24 00:00 | DULOXETINE HCL | [facility] | + + + + | 2023-02-28 00:00 | DULOXETINE HCL | [facility] | + + + + | 2022-05-01 00:00 | PREGABALIN | [facility] | + + + + | 2022-05-27 00:00 | PREGABALIN | [facility] | + + + + | 2022-08-26 00:00 | PREGABALIN | [facility] | + + + + | 2022-09-21 00:00 | PREGABALIN | [facility] | + + + + | 2022-09-23 00:00 | PREGABALIN | [facility] | + + + + | 2022-11-10 00:00 | PREGABALIN | [facility] | + + + + | 2022-12-08 00:00 | PREGABALIN | [facility] | + + + + | 2022-12-21 00:00 | PREGABALIN | [facility] | + + + + | 2023-02-18 00:00 | PREGABALIN | [facility] | + + + + | 2023-02-24 00:00 | PREGABALIN | [facility] | + + + + | 2023-02-28 00:00 | PREGABALIN | [facility] | + + + + | 2022-10-01 00:00 | Pantoprazole Sodium 40 MG | [facility] | | | Oral Tablet Delayed Release | | | | | | + + + + | 2022-10-30 00:00 | Pantoprazole Sodium 40 MG | [facility] | | | Oral Tablet Delayed Release | | | | | | + + + + | 2022-12-08 00:00 | ALBUTEROL SULFATE | [facility] | + + + + | 2022-12-08 00:00 | ALBUTEROL SULFATE | [facility] | + + + + | 2022-12-08 00:00 | ALBUTEROL SULFATE | [facility] | + + + + | 2022-10-01 00:00 | nystatin 100 UNT/MG | [facility] | | | Topical Powder | | + + + + | 2022-10-01 00:00 | [facility]ron 8 MG Oral | [facility] | | | Tablet Disintegrating | | + + + + | 2023-01-01 00:00 | Ondansetron 8 MG Oral | [facility] | | | Tablet Disintegrating | | + + + + | 2023-01-06 00:00 | Ondansetron 8 MG Oral | [facility] | | | Tablet Disintegrating | | + + + + | 2022-10-01 00:00 | Dicyclomine HCl 10 MG Oral | [facility] | | | Capsule | | + + + + | 2023-02-24 00:00 | CLINDAMYCIN HCL | [facility] | + + + + | 2023-02-24 00:00 | CLINDAMYCIN HCL | [facility] | + + + + | 2022-12-03 00:00 | BD Lancet Ultrafine 33G | [facility] | | | Miscellaneous | | + + + + | 2022-09-10 00:00 | Dtfdtypt-Dfwoobukw-OU | [facility] | | | 3.5-58067-8 Otic Solution | | + + + + | 2022-09-12 00:00 | Hjnwqept-Pzbkjampe-NU | [facility] | | | 3.5-54603-7 Otic Solution | | + + + + | 2022-05-01 00:00 | VITAMIN D3/MENAQUINONE 7 | [facility] | + + + + | 2022-05-27 00:00 | VITAMIN D3/MENAQUINONE 7 | [facility] | + + + + | 2022-08-26 00:00 | VITAMIN D3/MENAQUINONE 7 | [facility] | + + + + | 2022-09-21 00:00 | VITAMIN D3/MENAQUINONE 7 | [facility] | + + + + | 2022-09-23 00:00 | VITAMIN D3/MENAQUINONE 7 | [facility] | + + + + | 2022-11-10 00:00 | VITAMIN D3/MENAQUINONE 7 | [facility] | + + + + | 2022-12-08 00:00 | VITAMIN D3/MENAQUINONE 7 | [facility] | + + + + | 2022-12-21 00:00 | VITAMIN D3/MENAQUINONE 7 | [facility] | + + + + | 2023-02-18 00:00 | VITAMIN D3/MENAQUINONE 7 | [facility] | + + + + | 2023-02-24 00:00 | VITAMIN D3/MENAQUINONE 7 | [facility] | + + + + | 2023-02-28 00:00 | VITAMIN D3/MENAQUINONE 7 | [facility] | + + + + | 2022-05-01 00:00 | TRAMADOL HCL | [facility] | + + + + | 2022-05-27 00:00 | TRAMADOL HCL | [facility] | + + + + | 2022-08-26 00:00 | TRAMADOL HCL | [facility] | + + + + | 2022-09-21 00:00 | TRAMADOL HCL | [facility] | + + + + | 2022-09-23 00:00 | TRAMADOL HCL | [facility] | + + + + | 2022-11-10 00:00 | TRAMADOL HCL | [facility] | + + + + | 2022-12-08 00:00 | TRAMADOL HCL | [facility] | + + + + | 2022-12-21 00:00 | TRAMADOL HCL | [facility] | + + + + | 2023-02-18 00:00 | TRAMADOL HCL | [facility] | + + + + | 2023-02-24 00:00 | TRAMADOL HCL | [facility] | + + + + | 2023-02-28 00:00 | TRAMADOL HCL | [facility] | + + + + | 2018-10-11 00:00 | TRAMADOL HCL | [facility] | + + + + | 2018-10-11 00:00 | TRAMADOL HCL | [facility] | + + + + | 2018-10-11 00:00 | TRAMADOL HCL | [facility] | + + + + | 2018-10-11 00:00 | TRAMADOL HCL | [facility] | + + + + | 2018-10-11 00:00 | TRAMADOL HCL | [facility] | + + + + | 2018-10-11 00:00 | TRAMADOL HCL | [facility] | + + + + | 2022-05-01 00:00 | TRAMADOL HCL | [facility] | + + + + | 2022-05-27 00:00 | TRAMADOL HCL | [facility] | + + + + | 2022-08-26 00:00 | TRAMADOL HCL | [facility] | + + + + | 2022-09-21 00:00 | TRAMADOL HCL | [facility] | + + + + | 2022-09-23 00:00 | TRAMADOL HCL | [facility] | + + + + | 2022-11-10 00:00 | TRAMADOL HCL | [facility] | + + + + | 2022-12-08 00:00 | TRAMADOL HCL | [facility] | + + + + | 2022-12-21 00:00 | TRAMADOL HCL | [facility] | + + + + | 2023-02-18 00:00 | TRAMADOL HCL | [facility] | + + + + | 2023-02-24 00:00 | TRAMADOL HCL | [facility] | + + + + | 2023-02-28 00:00 | TRAMADOL HCL | [facility] | + + + + | 2022-05-01 00:00 | INSULIN | [facility] | | | GLALAKESHIA,HUM.REC.ANLOG | | + + + + | 2022-05-27 00:00 | INSULIN | [facility] | | | GLANOREENE,HUM.REC.ANLOG | | + + + + | 2022-08-26 00:00 | INSULIN | [facility] | | | GLARRENE,HUM.REC.ANLOG | | + + + + | 2022-09-21 00:00 | INSULIN | [facility] | | | GLANOREENE,HUM.REC.ANLOG | | + + + + | 2022-09-23 00:00 | INSULIN | [facility] | | | GLANOREENE,HUM.REC.ANLOG | | + + + + | 2022-11-10 00:00 | INSULIN | [facility] | | | GLARRENE,HUM.REC.ANLOG | | + + + + | 2022-12-08 00:00 | INSULIN | [facility] | | | GLARGINE,HUM.REC.ANLOG | | + + + + | 2022-12-21 00:00 | INSULIN | [facility] | | | [facility] | | + + + + | 2023-02-18 00:00 | INSULIN | [facility] | | | [facility] | | + + + + | 2023-02-24 00:00 | INSULIN | [facility] | | | [facility] | | + + + + | 2023-02-28 00:00 | INSULIN | [facility] | | | GLALAKESHIAHUM.REC.ANLOG | | + + + + | 2022-05-01 00:00 | ZOLPIDEM TARTRATE | [facility] | + + + + | 2022-05-27 00:00 | ZOLPIDEM TARTRATE | [facility] | + + + + | 2022-08-26 00:00 | ZOLPIDEM TARTRATE | [facility] | + + + + | 2022-09-21 00:00 | ZOLPIDEM TARTRATE | [facility] | + + + + | 2022-09-23 00:00 | ZOLPIDEM TARTRATE | [facility] | + + + + | 2022-11-10 00:00 | ZOLPIDEM TARTRATE | [facility] | + + + + | 2022-12-08 00:00 | ZOLPIDEM TARTRATE | [facility] | + + + + | 2022-12-21 00:00 | ZOLPIDEM TARTRATE | [facility] | + + + + | 2023-02-18 00:00 | ZOLPIDEM TARTRATE | [facility] | + + + + | 2023-02-24 00:00 | ZOLPIDEM TARTRATE | [facility] | + + + + | 2023-02-28 00:00 | ZOLPIDEM TARTRATE | [facility] | + + + + | 2022-09-11 00:00 | zolpidem tartrate 10 MG | [facility] | | | Oral Tablet | | + + + + | 2022-05-01 00:00 | Diclofenac Sodium | [facility] | + + + + | 2022-05-27 00:00 | Diclofenac Sodium | [facility] | + + + + | 2022-05-01 00:00 | TRAZODONE HCL | [facility] | + + + + | 2022-05-27 00:00 | TRAZODONE HCL | [facility] | + + + + | 2022-08-26 00:00 | TRAZODONE HCL | [facility] | + + + + | 2022-09-21 00:00 | TRAZODONE HCL | [facility] | + + + + | 2022-09-23 00:00 | TRAZODONE HCL | [facility] | + + + + | 2022-11-10 00:00 | TRAZODONE HCL | [facility] | + + + + | 2022-12-08 00:00 | TRAZODONE HCL | [facility] | + + + + | 2022-12-21 00:00 | TRAZODONE HCL | [facility] | + + + + | 2023-02-18 00:00 | TRAZODONE HCL | [facility] | + + + + | 2023-02-24 00:00 | TRAZODONE HCL | [facility] | + + + + | 2023-02-28 00:00 | TRAZODONE HCL | [facility] | + + + + | 2022-05-01 00:00 | PROPRANOLOL HCL | [facility] | + + + + | 2022-05-27 00:00 | PROPRANOLOL HCL | [facility] | + + + + | 2022-08-26 00:00 | PROPRANOLOL HCL | [facility] | + + + + | 2022-09-21 00:00 | PROPRANOLOL HCL | [facility] | + + + + | 2022-09-23 00:00 | PROPRANOLOL HCL | [facility] | + + + + | 2022-11-10 00:00 | PROPRANOLOL HCL | [facility] | + + + + | 2022-12-08 00:00 | PROPRANOLOL HCL | [facility] | + + + + | 2022-12-21 00:00 | PROPRANOLOL HCL | [facility] | + + + + | 2023-02-18 00:00 | PROPRANOLOL HCL | [facility] | + + + + | 2023-02-24 00:00 | PROPRANOLOL HCL | [facility] | + + + + | 2023-02-28 00:00 | PROPRANOLOL HCL | [facility] | + + + + | 2022-05-01 00:00 | AMITRIPTYLINE HCL | [facility] | + + + + | 2022-05-27 00:00 | AMITRIPTYLINE HCL | [facility] | + + + + | 2022-08-26 00:00 | AMITRIPTYLINE HCL | [facility] | + + + + | 2022-09-21 00:00 | AMITRIPTYLINE HCL | [facility] | + + + + | 2022-09-23 00:00 | AMITRIPTYLINE HCL | [facility] | + + + + | 2022-11-10 00:00 | AMITRIPTYLINE HCL | [facility] | + + + + | 2022-12-08 00:00 | AMITRIPTYLINE HCL | [facility] | + + + + | 2022-12-21 00:00 | AMITRIPTYLINE HCL | [facility] | + + + + | 2023-02-18 00:00 | AMITRIPTYLINE HCL | [facility] | + + + + | 2023-02-24 00:00 | AMITRIPTYLINE HCL | [facility] | + + + + | 2023-02-28 00:00 | AMITRIPTYLINE HCL | [facility] | + + + + | 2022-09-11 00:00 | amitriptyline | [facility] | | | hydrochloride 100 MG Oral | | | | Tablet | | + + + + | 2022-05-01 00:00 | AMITRIPTYLINE HCL | [facility] | + + + + | 2022-05-27 00:00 | AMITRIPTYLINE HCL | [facility] | + + + + | 2022-08-26 00:00 | AMITRIPTYLINE HCL | [facility] | + + + + | 2022-09-21 00:00 | AMITRIPTYLINE HCL | [facility] | + + + + | 2022-09-23 00:00 | AMITRIPTYLINE HCL | [facility] | + + + + | 2022-11-10 00:00 | AMITRIPTYLINE HCL | [facility] | + + + + | 2022-12-08 00:00 | AMITRIPTYLINE HCL | [facility] | + + + + | 2022-12-21 00:00 | AMITRIPTYLINE HCL | [facility] | + + + + | 2023-02-18 00:00 | AMITRIPTYLINE HCL | [facility] | + + + + | 2023-02-24 00:00 | AMITRIPTYLINE HCL | [facility] | + + + + | 2023-02-28 00:00 | AMITRIPTYLINE HCL | [facility] | + + + + | 2022-05-01 00:00 | AMITRIPTYLINE HCL | [facility] | + + + + | 2022-05-27 00:00 | AMITRIPTYLINE HCL | [facility] | + + + + | 2022-08-26 00:00 | AMITRIPTYLINE HCL | [facility] | + + + + | 2022-09-21 00:00 | AMITRIPTYLINE HCL | [facility] | + + + + | 2022-09-23 00:00 | AMITRIPTYLINE HCL | [facility] | + + + + | 2022-11-10 00:00 | AMITRIPTYLINE HCL | [facility] | + + + + | 2022-12-08 00:00 | AMITRIPTYLINE HCL | [facility] | + + + + | 2022-12-21 00:00 | AMITRIPTYLINE HCL | [facility] | + + + + | 2023-02-18 00:00 | AMITRIPTYLINE HCL | [facility] | + + + + | 2023-02-24 00:00 | AMITRIPTYLINE HCL | [facility] | + + + + | 2023-02-28 00:00 | AMITRIPTYLINE HCL | [facility] | + + + + | 2022-05-01 00:00 | HYDROCODONE/APAP | [facility] | | | (10-325MG) | | + + + + | 2022-05-27 00:00 | HYDROCODONE/APAP | [facility] | | | (10-325MG) | | + + + + | 2022-08-26 00:00 | HYDROCODONE/APAP | [facility] | | | (10-325MG) | | + + + + | 2022-09-21 00:00 | HYDROCODONE/APAP | [facility] | | | (10-325MG) | | + + + + | 2022-09-23 00:00 | HYDROCODONE/APAP | [facility] | | | (10-325MG) | | + + + + | 2022-11-10 00:00 | HYDROCODONE/APAP | [facility] | | | (10-325MG) | | + + + + | 2022-12-08 00:00 | HYDROCODONE/APAP | [facility] | | | (10-325MG) | | + + + + | 2022-12-21 00:00 | HYDROCODONE/APAP | [facility] | | | (10-325MG) | | + + + + | 2023-02-18 00:00 | HYDROCODONE/APAP | [facility] | | | (10-325MG) | | + + + + | 2023-02-24 00:00 | HYDROCODONE/APAP | [facility] | | | (10-325MG) | | + + + + | 2023-02-28 00:00 | HYDROCODONE/APAP | [facility] | | | (10-325MG) | | + + + + | 2021-05-20 00:00 | HYDROCODONE | [facility] | | | BIT/ACETAMINOPHEN | | + + + + | 2021-05-20 00:00 | HYDROCODONE | [facility] | | | BIT/ACETAMINOPHEN | | + + + + | 2021-05-20 00:00 | HYDROCODONE | [facility] | | | BIT/ACETAMINOPHEN | | + + + + | 2021-05-20 00:00 | HYDROCODONE | [facility] | | | BIT/ACETAMINOPHEN | | + + + + | 2021-05-20 00:00 | HYDROCODONE | [facility] | | | BIT/ACETAMINOPHEN | | + + + + | 2021-05-20 00:00 | HYDROCODONE | [facility] | | | BIT/ACETAMINOPHEN | | + + + + | 2022-09-23 00:00 | HYDROCODONE | [facility] | | | BIT/ACETAMINOPHEN | | + + + + | 2023-02-28 00:00 | HYDROCODONE | [facility] | | | BIT/ACETAMINOPHEN | | + + + + | 2015-08-17 00:00 | HYDROCODONE | [facility] | | | BIT/ACETAMINOPHEN | | + + + + | 2015-08-17 00:00 | HYDROCODONE | [facility] | | | BIT/ACETAMINOPHEN | | + + + + | 2015-08-17 00:00 | HYDROCODONE | [facility] | | | BIT/ACETAMINOPHEN | | + + + + | 2015-08-17 00:00 | HYDROCODONE | [facility] | | | BIT/ACETAMINOPHEN | | + + + + | 2015-08-17 00:00 | HYDROCODONE | [facility] | | | BIT/ACETAMINOPHEN | | + + + + | 2015-08-17 00:00 | HYDROCODONE | [facility] | | | BIT/ACETAMINOPHEN | | + + + + | 2015-09-03 00:00 | HYDROCODONE | [facility] | | | BIT/ACETAMINOPHEN | | + + + + | 2015-09-03 00:00 | HYDROCODONE | [facility] | | | BIT/ACETAMINOPHEN | | + + + + | 2015-09-03 00:00 | HYDROCODONE | [facility] | | | BIT/ACETAMINOPHEN | | + + + + | 2015-09-03 00:00 | HYDROCODONE | [facility] | | | BIT/ACETAMINOPHEN | | + + + + | 2015-09-03 00:00 | HYDROCODONE | [facility] | | | BIT/ACETAMINOPHEN | | + + + + | 2015-09-03 00:00 | HYDROCODONE | [facility] | | | BIT/ACETAMINOPHEN | | + + + + | 2018-10-09 00:00 | HYDROCODONE | [facility] | | | BIT/ACETAMINOPHEN | | + + + + | 2018-10-09 00:00 | HYDROCODONE | [facility] | | | BIT/ACETAMINOPHEN | | + + + + | 2018-10-09 00:00 | HYDROCODONE | [facility] | | | BIT/ACETAMINOPHEN | | + + + + | 2018-10-09 00:00 | HYDROCODONE | [facility] | | | BIT/ACETAMINOPHEN | | + + + + | 2018-10-09 00:00 | HYDROCODONE | [facility] | | | BIT/ACETAMINOPHEN | | + + + + | 2018-10-09 00:00 | HYDROCODONE | [facility] | | | BIT/ACETAMINOPHEN | | + + + + | 2022-05-01 00:00 | HYDROCODONE | [facility] | | | BIT/ACETAMINOPHEN | | + + + + | 2022-05-27 00:00 | HYDROCODONE | [facility] | | | BIT/ACETAMINOPHEN | | + + + + | 2022-08-26 00:00 | HYDROCODONE | [facility] | | | BIT/ACETAMINOPHEN | | + + + + | 2022-09-21 00:00 | HYDROCODONE | [facility] | | | BIT/ACETAMINOPHEN | | + + + + | 2022-09-23 00:00 | HYDROCODONE | [facility] | | | BIT/ACETAMINOPHEN | | + + + + | 2022-11-10 00:00 | HYDROCODONE | [facility] | | | BIT/ACETAMINOPHEN | | + + + + | 2022-12-08 00:00 | HYDROCODONE | [facility] | | | BIT/ACETAMINOPHEN | | + + + + | 2022-12-21 00:00 | HYDROCODONE | [facility] | | | BIT/ACETAMINOPHEN | | + + + + | 2023-02-18 00:00 | HYDROCODONE | [facility] | | | BIT/ACETAMINOPHEN | | + + + + | 2023-02-24 00:00 | HYDROCODONE | [facility] | | | BIT/ACETAMINOPHEN | | + + + + | 2023-02-28 00:00 | HYDROCODONE | [facility] | | | BIT/ACETAMINOPHEN | | + + + + | 2022-12-08 00:00 | HYDROCODONE | [facility] | | | BIT/ACETAMINOPHEN | | + + + + | 2022-12-08 00:00 | HYDROCODONE | [facility] | | | BIT/ACETAMINOPHEN | | + + + + | 2022-12-08 00:00 | HYDROCODONE | [facility] | | | BIT/ACETAMINOPHEN | | + + + + | 2020-08-28 00:00 | HYDROCODONE | [facility] | | | BIT/ACETAMINOPHEN | | + + + + | 2020-08-28 00:00 | HYDROCODONE | [facility] | | | BIT/ACETAMINOPHEN | | + + + + | 2020-08-28 00:00 | HYDROCODONE | [facility] | | | BIT/ACETAMINOPHEN | | + + + + | 2020-08-28 00:00 | HYDROCODONE | [facility] | | | BIT/ACETAMINOPHEN | | + + + + | 2020-08-28 00:00 | HYDROCODONE | [facility] | | | BIT/ACETAMINOPHEN | | + + + + | 2020-08-28 00:00 | HYDROCODONE | [facility] | | | BIT/ACETAMINOPHEN | | + + + + | 2022-05-01 00:00 | METFORMIN HCL | [facility] | + + + + | 2022-05-27 00:00 | METFORMIN HCL | [facility] | + + + + | 2022-08-26 00:00 | METFORMIN HCL | [facility] | + + + + | 2022-09-21 00:00 | METFORMIN HCL | [facility] | + + + + | 2022-09-23 00:00 | METFORMIN HCL | [facility] | + + + + | 2022-11-10 00:00 | METFORMIN HCL | [facility] | + + + + | 2022-12-08 00:00 | METFORMIN HCL | [facility] | + + + + | 2022-12-21 00:00 | METFORMIN HCL | [facility] | + + + + | 2023-02-18 00:00 | METFORMIN HCL | [facility] | + + + + | 2023-02-24 00:00 | METFORMIN HCL | [facility] | + + + + | 2023-02-28 00:00 | METFORMIN HCL | [facility] | + + + + | 2022-09-11 00:00 | metformin hydrochloride | [facility] | | | 1000 MG Oral Tablet | | + + + + | 2022-10-01 00:00 | metformin hydrochloride | [facility] | | | 1000 MG Oral Tablet | | + + + + | 2022-12-17 00:00 | metformin hydrochloride | [facility] | | | 1000 MG Oral Tablet | | + + + + | 2022-09-23 00:00 | CARBAMAZEPINE | [facility] | + + + + | 2022-11-10 00:00 | CARBAMAZEPINE | [facility] | + + + + | 2022-12-08 00:00 | CARBAMAZEPINE | [facility] | + + + + | 2022-12-21 00:00 | CARBAMAZEPINE | [facility] | + + + + | 2023-02-18 00:00 | CARBAMAZEPINE | [facility] | + + + + | 2023-02-24 00:00 | CARBAMAZEPINE | [facility] | + + + + | 2023-02-28 00:00 | CARBAMAZEPINE | [facility] | + + + + | 2015-09-03 00:00 | ONDANSETRON | [facility] | + + + + | 2015-09-03 00:00 | ONDANSETRON | [facility] | + + + + | 2015-09-03 00:00 | ONDANSETRON | [facility] | + + + + | 2015-09-03 00:00 | ONDANSETRON | [facility] | + + + + | 2015-09-03 00:00 | ONDANSETRON | [facility] | + + + + | 2015-09-03 00:00 | ONDANSETRON | [facility] | + + + + | 2015-11-21 00:00 | ONDANSETRON | [facility] | + + + + | 2015-11-21 00:00 | ONDANSETRON | [facility] | + + + + | 2015-11-21 00:00 | ONDANSETRON | [facility] | + + + + | 2015-11-21 00:00 | ONDANSETRON | [facility] | + + + + | 2015-11-21 00:00 | ONDANSETRON | [facility] | + + + + | 2015-11-21 00:00 | ONDANSETRON | [facility] | + + + + | 2014-09-29 00:00 | ONDANSETRON | [facility] | + + + + | 2014-09-29 00:00 | ONDANSETRON | [facility] | + + + + | 2014-09-29 00:00 | ONDANSETRON | [facility] | + + + + | 2014-09-29 00:00 | ONDANSETRON | [facility] | + + + + | 2014-09-29 00:00 | ONDANSETRON | [facility] | + + + + | 2014-09-29 00:00 | ONDANSETRON | [facility] | + + + + | 2022-10-01 00:00 | Nystatin [id number] UNIT/GM | [facility] | | | External Powder | | + + + + | 2022-09-11 00:00 | Furosemide 40 MG Oral | [facility] | | | Tablet | | + + + + | 2022-05-01 00:00 | LIRAGLUTIDE | [facility] | + + + + | 2022-05-27 00:00 | LIRAGLUTIDE | [facility] | + + + + | 2022-08-26 00:00 | LIRAGLUTIDE | [facility] | + + + + | 2022-09-21 00:00 | LIRAGLUTIDE | [facility] | + + + + | 2022-09-23 00:00 | LIRAGLUTIDE | [facility] | + + + + | 2022-11-10 00:00 | LIRAGLUTIDE | [facility] | + + + + | 2022-12-08 00:00 | LIRAGLUTIDE | [facility] | + + + + | 2022-12-21 00:00 | LIRAGLUTIDE | [facility] | + + + + | 2023-02-18 00:00 | LIRAGLUTIDE | [facility] | + + + + | 2023-02-24 00:00 | LIRAGLUTIDE | [facility] | + + + + | 2023-02-28 00:00 | LIRAGLUTIDE | [facility] | + + + + | 2022-09-11 00:00 | 24 HR fluvoxamine maleate | [facility] | | | 100 MG Extended Release | | | | Oral Capsule | | + + + + | 2022-05-01 00:00 | FLUVOXAMINE MALEATE | [facility] | + + + + | 2022-05-27 00:00 | FLUVOXAMINE MALEATE | [facility] | + + + + | 2022-08-26 00:00 | FLUVOXAMINE MALEATE | [facility] | + + + + | 2022-09-21 00:00 | FLUVOXAMINE MALEATE | [facility] | + + + + | 2022-09-23 00:00 | FLUVOXAMINE MALEATE | [facility] | + + + + | 2022-11-10 00:00 | FLUVOXAMINE MALEATE | [facility] | + + + + | 2022-12-08 00:00 | FLUVOXAMINE MALEATE | [facility] | + + + + | 2022-12-21 00:00 | FLUVOXAMINE MALEATE | [facility] | + + + + | 2023-02-18 00:00 | FLUVOXAMINE MALEATE | [facility] | + + + + | 2023-02-24 00:00 | FLUVOXAMINE MALEATE | [facility] | + + + + | 2023-02-28 00:00 | FLUVOXAMINE MALEATE | [facility] | + + + + | 2022-10-01 00:00 | dicyclomine hydrochloride | [facility] | | | 10 MG Oral Capsule | | + + + + | 2018-10-09 00:00 | PROMETHAZINE HCL | [facility] | + + + + | 2018-10-09 00:00 | PROMETHAZINE HCL | [facility] | + + + + | 2018-10-09 00:00 | PROMETHAZINE HCL | [facility] | + + + + | 2018-10-09 00:00 | PROMETHAZINE HCL | [facility] | + + + + | 2018-10-09 00:00 | PROMETHAZINE HCL | [facility] | + + + + | 2018-10-09 00:00 | PROMETHAZINE HCL | [facility] | + + + + | 2020-08-28 00:00 | PROMETHAZINE HCL | [facility] | + + + + | 2020-08-28 00:00 | PROMETHAZINE HCL | [facility] | + + + + | 2020-08-28 00:00 | PROMETHAZINE HCL | [facility] | + + + + | 2020-08-28 00:00 | PROMETHAZINE HCL | [facility] | + + + + | 2020-08-28 00:00 | PROMETHAZINE HCL | [facility] | + + + + | 2020-08-28 00:00 | PROMETHAZINE HCL | [facility] | + + + + | 2022-09-11 00:00 | promethazine hydrochloride | [facility] | | | 25 MG Oral Tablet | | + + + + | 2015-08-17 00:00 | PROMETHAZINE HCL | [facility] | + + + + | 2015-08-17 00:00 | PROMETHAZINE HCL | [facility] | + + + + | 2015-08-17 00:00 | PROMETHAZINE HCL | [facility] | + + + + | 2015-08-17 00:00 | PROMETHAZINE HCL | [facility] | + + + + | 2015-08-17 00:00 | PROMETHAZINE HCL | [facility] | + + + + | 2015-08-17 00:00 | PROMETHAZINE HCL | [facility] | + + + + | 2022-05-01 00:00 | buPROPion HCL | [facility] | + + + + | 2022-05-27 00:00 | buPROPion HCL | [facility] | + + + + | 2022-08-26 00:00 | buPROPion HCL | [facility] | + + + + | 2022-09-21 00:00 | buPROPion HCL | [facility] | + + + + | 2022-09-23 00:00 | buPROPion HCL | [facility] | + + + + | 2022-11-10 00:00 | buPROPion HCL | [facility] | + + + + | 2022-12-08 00:00 | buPROPion HCL | [facility] | + + + + | 2022-12-21 00:00 | buPROPion HCL | [facility] | + + + + | 2023-02-18 00:00 | buPROPion HCL | [facility] | + + + + | 2023-02-24 00:00 | buPROPion HCL | [facility] | + + + + | 2023-02-28 00:00 | buPROPion HCL | [facility] | + + + + | 2021-03-23 00:00 | hydrOXYzine HCL | [facility] | + + + + | 2021-03-23 00:00 | hydrOXYzine HCL | [facility] | + + + + | 2021-03-23 00:00 | hydrOXYzine HCL | [facility] | + + + + | 2021-03-23 00:00 | hydrOXYzine HCL | [facility] | + + + + | 2021-03-23 00:00 | hydrOXYzine HCL | [facility] | + + + + | 2021-03-23 00:00 | hydrOXYzine HCL | [facility] | + + + + | 2022-05-01 00:00 | MECLIZINE HCL | [facility] | + + + + | 2022-05-27 00:00 | MECLIZINE HCL | [facility] | + + + + | 2022-08-26 00:00 | MECLIZINE HCL | [facility] | + + + + | 2022-09-21 00:00 | MECLIZINE HCL | [facility] | + + + + | 2022-09-11 00:00 | meclizine hydrochloride 25 | [facility] | | | MG Oral Tablet | | + + + + | 2015-04-07 00:00 | GUAIFENESIN/CODEINE | [facility] | | | PHOSPHATE | | + + + + | 2015-04-07 00:00 | GUAIFENESIN/CODEINE | [facility] | | | PHOSPHATE | | + + + + | 2015-04-07 00:00 | GUAIFENESIN/CODEINE | [facility] | | | PHOSPHATE | | + + + + | 2015-04-07 00:00 | GUAIFENESIN/CODEINE | [facility] | | | PHOSPHATE | | + + + + | 2015-04-07 00:00 | GUAIFENESIN/CODEINE | [facility] | | | PHOSPHATE | | + + + + | 2015-04-07 00:00 | GUAIFENESIN/CODEINE | [facility] | | | PHOSPHATE | | + + + + | 2022-09-11 00:00 | Vitamin D 5000IU Oral | [facility] | | | Capsule | | + + + + Problems + + + + | date | description | facility | + + + + | 2014-05-24 00:00 | Anemia | [facility] | + + + + | 2014-05-24 00:00 | Anemia | [facility] | + + + + | 2014-05-24 00:00 | Anemia | [facility] | + + + + | 2014-05-24 00:00 | Anemia | [facility] | + + + + | 2014-05-24 00:00 | Anemia | [facility] | + + + + | 2014-05-24 00:00 | Anemia | [facility] | + + + + | 2014-05-24 00:00 | Somnolence | [facility] | + + + + | 2014-05-24 00:00 | Somnolence | [facility] | + + + + | 2014-05-24 00:00 | Somnolence | [facility] | + + + + | 2014-05-24 00:00 | Somnolence | [facility] | + + + + | 2014-05-24 00:00 | Somnolence | [facility] | + + + + | 2014-05-24 00:00 | Somnolence | [facility] | + + + + | 2014-05-24 00:00 | Dizziness | [facility] | + + + + | 2014-05-24 00:00 | Dizziness | [facility] | + + + + | 2014-05-24 00:00 | Dizziness | [facility] | + + + + | 2014-05-24 00:00 | Dizziness | [facility] | + + + + | 2014-05-24 00:00 | Dizziness | [facility] | + + + + | 2014-05-24 00:00 | Dizziness | [facility] | + + + + | 2014-05-27 00:00 | Abdominal pain | [facility] | + + + + | 2014-05-27 00:00 | Abdominal pain | [facility] | + + + + | 2014-05-27 00:00 | Abdominal pain | [facility] | + + + + | 2014-05-27 00:00 | Abdominal pain | [facility] | + + + + | 2014-05-27 00:00 | Abdominal pain | [facility] | + + + + | 2014-05-27 00:00 | Abdominal pain | [facility] | + + + + | 2014-09-29 00:00 | Sinusitis | [facility] | + + + + | 2014-09-29 00:00 | Sinusitis | [facility] | + + + + | 2014-09-29 00:00 | Sinusitis | [facility] | + + + + | 2014-09-29 00:00 | Sinusitis | [facility] | + + + + | 2014-09-29 00:00 | Sinusitis | [facility] | + + + + | 2014-09-29 00:00 | Sinusitis | [facility] | + + + + | 2014-09-29 00:00 | Headache | [facility] | + + + + | 2014-09-29 00:00 | Headache | [facility] | + + + + | 2014-09-29 00:00 | Headache | [facility] | + + + + | 2014-09-29 00:00 | Headache | [facility] | + + + + | 2014-09-29 00:00 | Headache | [facility] | + + + + | 2014-09-29 00:00 | Headache | [facility] | + + + + | 2015-08-17 00:00 | Acute streptococcal | [facility] | | | pharyngitis | | + + + + | 2015-08-17 00:00 | Acute streptococcal | [facility] | | | pharyngitis | | + + + + | 2015-08-17 00:00 | Acute streptococcal | [facility] | | | pharyngitis | | + + + + | 2015-08-17 00:00 | Acute streptococcal | [facility] | | | pharyngitis | | + + + + | 2015-08-17 00:00 | Acute streptococcal | [facility] | | | pharyngitis | | + + + + | 2015-08-17 00:00 | Acute streptococcal | [facility] | | | pharyngitis | | + + + + | 2015-08-17 00:00 | Vomiting and diarrhea | [facility] | + + + + | 2015-08-17 00:00 | Vomiting and diarrhea | [facility] | + + + + | 2015-08-17 00:00 | Vomiting and diarrhea | [facility] | + + + + | 2015-08-17 00:00 | Vomiting and diarrhea | [facility] | + + + + | 2015-08-17 00:00 | Vomiting and diarrhea | [facility] | + + + + | 2015-08-17 00:00 | Vomiting and diarrhea | [facility] | + + + + | 2015-09-03 00:00 | Cough | [facility] | + + + + | 2015-09-03 00:00 | Cough | [facility] | + + + + | 2015-09-03 00:00 | Cough | [facility] | + + + + | 2015-09-03 00:00 | Cough | [facility] | + + + + | 2015-09-03 00:00 | Cough | [facility] | + + + + | 2015-09-03 00:00 | Cough | [facility] | + + + + | 2015-09-03 00:00 | Vomiting | [facility] | + + + + | 2015-09-03 00:00 | Vomiting | [facility] | + + + + | 2015-09-03 00:00 | Vomiting | [facility] | + + + + | 2015-09-03 00:00 | Vomiting | [facility] | + + + + | 2015-09-03 00:00 | Vomiting | [facility] | + + + + | 2015-09-03 00:00 | Vomiting | [facility] | + + + + | 2015-11-21 00:00 | Pneumonia | [facility] | + + + + | 2015-11-21 00:00 | Pneumonia | [facility] | + + + + | 2015-11-21 00:00 | Pneumonia | [facility] | + + + + | 2015-11-21 00:00 | Pneumonia | [facility] | + + + + | 2015-11-21 00:00 | Pneumonia | [facility] | + + + + | 2015-11-21 00:00 | Pneumonia | [facility] | + + + + | 2018-08-02 00:00 | Encounter for medical | [facility] | | | screening examination | | + + + + | 2018-08-02 00:00 | Encounter for medical | [facility] | | | screening examination | | + + + + | 2018-08-02 00:00 | Encounter for medical | [facility] | | | screening examination | | + + + + | 2018-08-02 00:00 | Encounter for medical | [facility] | | | screening examination | | + + + + | 2018-08-02 00:00 | Encounter for medical | [facility] | | | screening examination | | + + + + | 2018-08-02 00:00 | Encounter for medical | [facility] | | | screening examination | | + + + + | 2018-10-11 00:00 | Abscess | [facility] | + + + + | 2018-10-11 00:00 | Abscess | [facility] | + + + + | 2018-10-11 00:00 | Abscess | [facility] | + + + + | 2018-10-11 00:00 | Abscess | [facility] | + + + + | 2018-10-11 00:00 | Abscess | [facility] | + + + + | 2018-10-11 00:00 | Abscess | [facility] | + + + + | 2019-11-09 00:00 | [place] | [facility] | + + + + | 2019-11-09 00:00 | [place] | [facility] | + + + + | 2019-11-09 00:00 | [place] | [facility] | + + + + | 2019-11-09 00:00 | [place] | [facility] | + + + + 2019-11-09 00:00 | [place] | [facility] | + + + + 2019-11-09 00:00 | [place] | [facility] | + + + + | 2019-11-09 00:00 | Adverse effect of drug | [facility] | + + + + | 2019-11-09 00:00 | Adverse effect of drug | [facility] | + + + + | 2019-11-09 00:00 | Adverse effect of drug | [facility] | + + + + | 2019-11-09 00:00 | Adverse effect of drug | [facility] | + + + + 2019-11-09 00:00 | Adverse effect of drug | [facility] | + + + + | 2019-11-09 00:00 | Adverse effect of drug | [facility] | + + + + | 2020-06-09 00:00 | Hypoglycemia associated | [facility] | | | with type 2 diabetes | | | | mellitus | | + + + + | 2020-06-09 00:00 | Hypoglycemia associated | [facility] | | | with type 2 diabetes | | | | mellitus | | + + + + | 2020-06-09 00:00 | Hypoglycemia associated | [facility] | | | with type 2 diabetes | | | | mellitus | | + + + + | 2020-06-09 00:00 | Hypoglycemia associated | [facility] | | | with type 2 diabetes | | | | mellitus | | + + + + | 2020-06-09 00:00 | Hypoglycemia associated | [facility] | | | with type 2 diabetes | | | | mellitus | | + + + + | 2020-06-09 00:00 | Hypoglycemia associated | [facility] | | | with type 2 diabetes | | | | mellitus | | + + + + | 2020-08-28 00:00 | Contusion of abdominal | [facility] | | | wall | | + + + + | 2020-08-28 00:00 | Contusion of abdominal | [facility] | | | wall | | + + + + | 2020-08-28 00:00 | Contusion of abdominal | [facility] | | | wall | | + + + + | 2020-08-28 00:00 | Contusion of abdominal | [facility] | | | wall | | + + + + | 2020-08-28 00:00 | Contusion of abdominal | [facility] | | | wall | | + + + + | 2020-08-28 00:00 | Contusion of abdominal | [facility] | | | wall | | + + + + | 2020-10-09 00:00 | Migraine headache | [facility] | + + + + | 2020-10-09 00:00 | Migraine headache | [facility] | + + + + | 2020-10-09 00:00 | Migraine headache | [facility] | + + + + | 2020-10-09 00:00 | Migraine headache | [facility] | + + + + | 2020-10-09 00:00 | Migraine headache | [facility] | + + + + | 2020-10-09 00:00 | Migraine headache | [facility] | + + + + | 2021-03-23 00:00 | Urticaria | [facility] | + + + + | 2021-03-23 00:00 | Urticaria | [facility] | + + + + | 2021-03-23 00:00 | Urticaria | [facility] | + + + + | 2021-03-23 00:00 | Urticaria | [facility] | + + + + | 2021-03-23 00:00 | Urticaria | [facility] | + + + + | 2021-03-23 00:00 | Urticaria | [facility] | + + + + | 2021-03-23 00:00 | Nausea and vomiting | [facility] | + + + + | 2021-03-23 00:00 | Nausea and vomiting | [facility] | + + + + | 2021-03-23 00:00 | Nausea and vomiting | [facility] | + + + + | 2021-03-23 00:00 | Nausea and vomiting | [facility] | + + + + | 2021-03-23 00:00 | Nausea and vomiting | [facility] | + + + + | 2021-03-23 00:00 | Nausea and vomiting | [facility] | + + + + | 2021-05-20 00:00 | Closed fracture of left | [facility] | | | ankle | | + + + + | 2021-05-20 00:00 | Closed fracture of left | [facility] | | | ankle | | + + + + | 2021-05-20 00:00 | Closed fracture of left | [facility] | | | ankle | | + + + + | 2021-05-20 00:00 | Closed fracture of left | [facility] | | | ankle | | + + + + | 2021-05-20 00:00 | Closed fracture of left | [facility] | | | ankle | | + + + + | 2021-05-20 00:00 | Closed fracture of left | [facility] | | | ankle | | + + + + | 2021-06-06 00:00 | Left ankle pain | [facility] | + + + + | 2021-06-06 00:00 | Left ankle pain | [facility] | + + + + | 2021-06-06 00:00 | Left ankle pain | [facility] | + + + + | 2021-06-06 00:00 | Left ankle pain | [facility] | + + + + | 2021-06-06 00:00 | Left ankle pain | [facility] | + + + + | 2021-06-06 00:00 | Left ankle pain | [facility] | + + + + | 2021-06-06 00:00 | Infection due to severe | [facility] | | | acute respiratory syndrome | | | | coronavirus 2 (SARS-CoV-2) | | + + + + | 2021-06-06 00:00 | Infection due to severe | [facility] | | | acute respiratory syndrome | | | | coronavirus 2 (SARS-CoV-2) | | + + + + | 2021-06-06 00:00 | Infection due to severe | [facility] | | | acute respiratory syndrome | | | | coronavirus 2 (SARS-CoV-2) | | + + + + | 2021-06-06 00:00 | Infection due to severe | [facility] | | | acute respiratory syndrome | | | | coronavirus 2 (SARS-CoV-2) | | + + + + | 2021-06-06 00:00 | Infection due to severe | [facility] | | | acute respiratory syndrome | | | | coronavirus 2 (SARS-CoV-2) | | + + + + | 2021-06-06 00:00 | Infection due to severe | [facility] | | | acute respiratory syndrome | | | | coronavirus 2 (SARS-CoV-2) | | + + + + | 2021-09-16 00:00 | Fabry's disease | [facility] | + + + + | 2021-09-16 00:00 | Fabry's disease | [facility] | + + + + | 2021-09-16 00:00 | Fabry's disease | [facility] | + + + + | 2021-09-16 00:00 | Fabry's disease | [facility] | + + + + | 2021-09-16 00:00 | Fabry's disease | [facility] | + + + + | 2021-09-16 00:00 | Fabry's disease | [facility] | + + + + | 2021-09-16 00:00 | Pain of left upper | [facility] | | | extremity | | + + + + | 2021-09-16 00:00 | Pain of left upper | [facility] | | | extremity | | + + + + | 2021-09-16 00:00 | Pain of left upper | [facility] | | | extremity | | + + + + | 2021-09-16 00:00 | Pain of left upper | [facility] | | | extremity | | + + + + | 2021-09-16 00:00 | Pain of left upper | [facility] | | | extremity | | + + + + | 2021-09-16 00:00 | Pain of left upper | [facility] | | | extremity | | + + + + | 2021-11-15 00:00 | Patient left without being | [facility] | | | seen | | + + + + | 2021-11-15 00:00 | Patient left without being | [facility] | | | seen | | + + + + | 2021-11-15 00:00 | Patient left without being | [facility] | | | seen | | + + + + | 2021-11-15 00:00 | Patient left without being | [facility] | | | seen | | + + + + | 2021-11-15 00:00 | Patient left without being | [facility] | | | seen | | + + + + | 2021-11-15 00:00 | Patient left without being | [facility] | | | seen | | [...] + + | 2022-02-03 19:56 | Other 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 continuous churn (current) | [facility] [employer] | | | [...] 2022-02-05 00:00 | Flare of rheumatoid | [facility] | | | arthritis | | + + + + | 2022-02-05 00:00 | Flare of rheumatoid | [facility] | | | arthritis | | + + + + | 2022-02-05 00:00 | Flare of rheumatoid | [facility] | | | arthritis | | + + + + | 2022-02-05 00:00 | Flare of rheumatoid | [facility] | | | arthritis | | + + + + | 2022-02-05 00:00 | Flare of rheumatoid | [facility] | | | arthritis | | + + + + | 2022-02-05 00:00 | Flare of rheumatoid | [facility] | | | arthritis | | [...] + + + | 2022-02-05 16:21 | snf (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 of | [facility] | | | oral hypoglycemic drugs | [employer] | + + + + | 2022-02-05 16:21 | Other custodial (current) | [facility] | | | [...] + | 2022-02-23 00:00 | Concussion | [facility] | + + + + | 2022-02-23 00:00 | Concussion | [facility] | + + + + | 2022-02-23 00:00 | Concussion | [facility] | + + + + | 2022-02-23 00:00 | Concussion | [facility] | + + + + | 2022-02-23 00:00 | Concussion | [facility] | + + + + | 2022-02-23 00:00 | Concussion | [facility] | + + + + | 2022-02-23 00:00 | Strain of neck muscle | [facility] | + + + + | 2022-02-23 00:00 | Strain of neck muscle | [facility] | + + + + | 2022-02-23 00:00 | Strain of neck muscle | [facility] | + + + + | 2022-02-23 00:00 | Strain of neck muscle | [facility] | + + + + | 2022-02-23 00:00 | Strain of neck muscle | [facility] | + + + + | 2022-02-23 00:00 | Strain of neck muscle | [facility] | + + + + | [...] + + + | 2022-02-23 10:24 | snf (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 of | [facility] | | | insulin | [employer] | + + + + | 2022-02-23 10:24 | Other custodial (current) | [facility] | | | [...] 00:00 | Contusion of right wrist | [facility] | + + + + | 2022-05-27 00:00 | Contusion of right wrist | [facility] | + + + + | 2022-05-27 00:00 | Contusion of right wrist | [facility] | + + + + | 2022-05-27 00:00 | Contusion of right wrist | [facility] | + + + + | 2022-05-27 00:00 | Contusion of right wrist | [facility] | + + + + | 2022-09-10 00:00 | Antiphospholipid syndrome | [facility] | | | (disorder) | | + + + + | 2022-09-10 00:00 | HYPERCOAGULABLE STATE | [facility] | | | | | + + + + | 2022-09-10 00:00 | Antiphospholipid Antibody | [facility] 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 | | + + + + | 2022-09-21 00:00 | Intertriginous candidiasis | [facility] | | | | | + + + + | 2022-09-21 00:00 | Intertriginous candidiasis | [facility] | | | | | + + + + | 2022-09-21 00:00 | Intertriginous candidiasis | [facility] | | | | | + + + + | 2022-09-21 00:00 | Viral respiratory | [facility] | | | infection | | + + + + | 2022-09-21 00:00 | Viral respiratory | [facility] | | | infection | | + + + + | 2022-09-21 00:00 | Viral respiratory | [facility] | | | infection | | + + + + | 2022-09-23 00:00 | Lona-Calderon tear | [facility] | + + + + | 2022-09-23 00:00 | Lona-Calderon tear | [facility] | + + + + | 2022-09-23 00:00 | Lona-Calderon tear | [facility] | + + + + | 2022-09-23 00:00 | Gastritis | [facility] | + + + + | 2022-09-23 00:00 | Gastritis | [facility] | + + + + | 2022-09-23 00:00 | Gastritis | [facility] | + + + + | 2022-09-23 00:00 | Rectal hemorrhage | [facility] | + + + + | 2022-09-23 00:00 | Rectal hemorrhage | [facility] | + + + + | 2022-09-23 00:00 | Rectal hemorrhage | [facility] | + + + + | 2022-10-02 00:00 | Gerd | [facility] | | | | | + + + + | 2022-10-02 00:00 | Bipolar disorder | [facility] | | | (disorder) | | + + + + | 2022-10-02 00:00 | Obsessive-compulsive | [facility] | | | disorder (disorder) | | + + + + | 2022-10-02 00:00 | Insomnia (disorder) | [facility] | | | | | + + + + | 2022-10-02 00:00 | Generalized anxiety | [facility] | | | disorder (disorder) | | + + + + | 2022-10-02 00:00 | DM II CONTROLLED | [facility] | | | | | + + + + | 2022-10-02 00:00 | DIABETES W/NEUROLOGICAL | [facility] Jeremy PRADHAN. | | | MANIFESTATIONS,TYPEII | | + + + + | 2022-10-02 00:00 | Vitamin Deficiency | [facility]. | | | | | + + + + | 2022-10-02 00:00 | BIPOLAR DISORDER | [facility] | | | UNSPECIFIED | | + + + + | 2022-10-02 00:00 | ANXIETY GENERALIZED | [facility] | | | | | + + + + | 2022-10-02 00:00 | Migraine Headache | [facility] | | | | | + + + + | 2022-10-02 00:00 | Obsessive Compulsive | [facility] | | | Disorder | | + + + + | 2022-10-02 00:00 | Migraine (disorder) | [facility] | | | | | + + + + | 2022-10-02 00:00 | Diabetes mellitus type 2 | [facility] | | | (disorder) [...] | Sleep Disorder Insomnia | [facility] Jeremy PRADHAN. | | | | | + + + + | 2022-10-02 00:00 | status post gastric bypass | [facility] PRADHAN. | | | | | + + + + | 2022-10-02 00:00 | Postsurgical Status | [facility] Jeremy VELAZQUEZ. | | | Post-gastric Bypass For | | | | Obesity | | + + + + | 2022-11-10 00:00 | Sprain of knee | [facility] | + + + + | 2022-11-10 00:00 | Sprain of knee | [facility] | + + + + | 2022-11-10 00:00 | Sprain of knee | [facility] | + + + + | 2022-11-10 00:00 | Contusion of foot | [facility] | + + + + | 2022-11-10 00:00 | Contusion of foot | [facility] | + + + + | 2022-11-10 00:00 | Contusion of foot | [facility] | + + + + | 2022-11-10 00:00 | Sprain of ankle | [facility] | + + + + | 2022-11-10 00:00 | Sprain of ankle | [facility] | + + + + | 2022-11-10 00:00 | Sprain of ankle | [facility] | + + + + | 2022-12-21 00:00 | Sprain of left ankle | [facility] | + + + + | 2022-12-21 00:00 | Sprain of left ankle | [facility] | + + + + | 2022-12-21 00:00 | Sprain of left ankle | [facility] | + + + + | 2023-02-18 00:00 | Combined abdominal pain, | [facility] | | | vomiting, and diarrhea | | + + + + | 2023-02-18 00:00 | Combined abdominal pain, | [facility] | | | vomiting, and diarrhea [...] + + + | 2023-02-18 08:43 | SNF (CURRENT) USE OF | [facility] | | | ORAL HYPOGLYCEMIC DRUGS | | + + + + | 2023-02-18 08:43 | OTHER SNF (CURRENT) | [facility] | | | DRUG [...] 2023-02-24 00:00 | Laceration of hand | [facility] | + + + + | 2023-02-24 00:00 | Laceration of hand | [facility] | + + + + | [...] + + + | 2023-02-24 18:49 | SNF (CURRENT) USE OF | [facility] | | | ORAL HYPOGLYCEMIC DRUGS | | + + + + | 2023-02-24 18:49 | OTHER QUITLINE COUNSELOR (CURRENT) | [facility] | | | DRUG [...] 00:00 | Local infection of wound | [facility] | + + + + | [...] + + + | 2023-02-28 16:08 | SNF (CURRENT) USE OF | [facility] | | | ORAL HYPOGLYCEMIC DRUGS | | + + + + | 2023-02-28 16:08 | OTHER QUITLINE COUNSELOR (CURRENT) | [facility] | | | DRUG [...] + | 2022-09-10 00:00 | section | [facility]. | | | (procedure) | | [...] + | 2022-09-10 00:00 | Section | [facility] | | | | | + + + + | 2022-09-10 00:00 | Orthopedic Surgery | [facility] Jeremy PRADHAN. | | | | [...] (missing) | | (unavailable | 10:28:07 | [facility] | | | | | ) | [...] (missing) | | (unavailable | 09:00:07 | [facility] | | | | | ) | [...] (missing) | | (unavailable | 09:00:07 | [facility] | | | | | ) | [...] Unknown if ever smoked | [facility] | | | | | + + + + | 2023-01-03 00:00 | Unknown if ever smoked | [facility] | | | | | + + + + | 2023-01-07 00:00 | Unknown if ever smoked | [facility] | | | | [...]
[~2023-04-16 16:41] MED LIST changes: +CLEOCIN HCL300 MG PO
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
[2023-04-16] MEDS ORDERED: PREDNISONE20 MG PO (18:22)
[2023-04-16 18:38] VITALS: BP 152/89
== END 2023-04-16 18:38 | disposition home or self-care (01) ==
LOC: ED 16:41
DX: L50.9 Urticaria, unspecified (principal); I10 Essential (primary) hypertension; E11.9 Type 2 diabetes mellitus without complications; M06.9 Rheumatoid arthritis, unspecified; Z88.1 Allergy status to other antibiotic agents; Z88.8 Allergy status to other drugs, medicaments and biological substances; Z88.2 Allergy status to sulfonamides; Z79.899 Other long term (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; Z79.84 Long term (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 of oral hypoglycemic drugs
CPT/HCPCS: 94640; 99283-25; A9270; J7512; Q0163

== ENCOUNTER 2024-01-23 22:22 | Emergency (ER) | payer MEDICARE, OTHER ==
[~2024-01-23] VITALS: Ht 160 cm; Wt 104.5 kg
[~2024-01-23 22:22] MED LIST changes: +CAPLYTA42 MG PO; +VENTOLIN HFA18 GM INH; +[UNRECOGNIZED DRUG - OTHER] PO
[2024-01-23] MEDS ORDERED: IBLOOD GLUCOSE TEST STRIP 1 EA TEST VI ONE (22:45)
[2024-01-23] MEDS ORDERED: MULTIVITAMINS 10 ML,FOLIC ACID 1 MG,THIAMINE HCL 100 MG in SODIUM CHLORIDE 0.9% 1,000 ML IV ONE (23:00)
[2024-01-23] MEDS ORDERED: FOLIC ACID 1 MG/0.2 ML ML ONE (23:01)
[2024-01-23 23:02] LABS: BASOPHILS 0.2 % (0-2); HEMATOCRIT 30.6 % (35.0-50.0); HEMOGLOBIN 9.7 g/dL (12.0-18.0); LYMPHOCYTES 27.4 % (24-44); MCH 26.3 (27-36); MCHC 31.8 g/dl (30-36); MCV 82.6 fl (81-99); MONOCYTES 6.8 % (0-12); NEUTROPHILS 65.6 % (39-80); PLATELET COUNT 296 K/uL (140-440)
[2024-01-23 23:17] LABS: BILIRUBIN, URINE NEGATIVE (negative); BLOOD/HGB, URINE NEGATIVE (Negative); KETONE, URINE NEGATIVE (Negative); LEUK ESTERASE, URINE NEGATIVE (negative); NITRITE, URINE NEGATIVE (negative); PH, URINE 5.5 (5-7)
[2024-01-23 23:20] LABS: ALBUMIN 3.4 g/dL (3.4-5.0); ALBUMIN/GLOBULIN RATIO 0.92 (1.1-2.4); ALCOHOL, MEDICAL <3 ng/dL (<3); ALKALINE PHOSPHATASE 149 U/L (46-116); ALT (SGPT) 22 U/L (14-59); AST (SGOT) 12 U/L (15-37); BILIRUBIN, TOTAL 0.2 ng/dL (0.2-1.0); BUN/CREATININE RATIO 10.14 (6.0-28.6); CARBON DIOXIDE 30 mmol/L (21-32); CHLORIDE 105 mmol/L (98-107); CREATININE, SERUM 0.69 mg/dL (0.55-1.02); GLOMERULAR FILTRATION RATE,EST 109 mL/min (>60); PROTEIN, TOTAL 7.1 g/dL (6.4-8.2); UREA NITROGEN 7 mg/dL (7-18)
[2024-01-23 23:36] LABS: AMPHETAMINES, URINE NEGATIVE (NEGATIVE); BARBITURATES, URINE NEGATIVE (NEGATIVE); BENZODIAZEPINE, URINE NEGATIVE (NEGATIVE); BUPRENORPHINE, URINE NEGATIVE (NEGATIVE); CANNABINOID, URINE NEGATIVE (NEGATIVE); COCAINE, URINE NEGATIVE (NEGATIVE); ECSTASY, URINE NEGATIVE (NEGATIVE); FENTANYL, URINE NEGATIVE (NEGATIVE); METHADONE, URINE NEGATIVE (NEGATIVE); OPIATES, URINE NEGATIVE (NEGATIVE); OXYCODONE, URINE NEGATIVE (NEGATIVE); PHENCYCLIDINE, URINE NEGATIVE (NEGATIVE)
[2024-01-23 23:41] LABS: INFLUENZA B NAA NEGATIVE (NEGATIVE); RESPIRATORY SYNCYTIAL VIR NAA NEGATIVE (NEGATIVE)
[2024-01-23] MEDS ORDERED: POTASSIUM CHLORIDE 10 MEQ TABCR PO ONE (23:45)
[2024-01-24] MEDS ORDERED: K-TAB ER20 MEQ PO (00:30)
[2024-01-24] MEDS ORDERED: POTASSIUM CHLORIDE 10 MEQ TABCR PO ONE (00:30)
[2024-01-24 00:49] VITALS: BP 113/67
--- NOTE | 2024-01-24 18:29 | EKG ---
[facility] [address] [place], [place] [address] Signed Normal sinus rhythm ST \T\ T wave abnormality, consider lateral ischemia Abnormal ECG When compared with ECG of 18-DEC-2023 11:28, No significant change was found Confirmed by MINA BARRAGAN MD ([id number]) on 01/24/2024 6:30:15 PM Electronically Signed By: MINA BARRAGAN 01/24/24 1829 PATIENT NAME: ENRIQUEMARKO Electrocardiogram DATE OF : 78 PHYSICIAN: MINA BARRAGAN REPORT #: [id number] REPORT IS CONFIDENTIAL AND NOT TO BE RELEASED WITHOUT AUTHORIZATION
== END 2024-01-24 00:51 | disposition home or self-care (01) ==
LOC: ED 22:22
PROVIDERS: Internal Medicine
DX: R41.82 Altered mental status, unspecified (principal); E87.6 Hypokalemia; I10 Essential (primary) hypertension; E11.9 Type 2 diabetes mellitus without complications; Z88.1 Allergy status to other antibiotic agents; Z88.0 Allergy status to penicillin; Z88.2 Allergy status to sulfonamides; Z88.8 Allergy status to other drugs, medicaments and biological substances; Z79.84 Long term (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 of oral hypoglycemic drugs; Z79.899 Other long term (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
CPT/HCPCS: 36415; 70450; 70496; 70498; 71045; 80053; 80307; 81003; 83735; 84484; 85025; 87502; 93005; 93010; 96365; 99285-25; A9270; G0480; J3411; J7030; Q9967; U0002

== ENCOUNTER 2024-02-28 00:13 | Emergency (ER) | payer MEDICARE, OTHER ==
[~2024-02-28] VITALS: Ht 160 cm; Wt 113.0 kg
[~2024-02-28 00:13] MED LIST changes: +K-TAB ER20 MEQ PO
[2024-02-28] MEDS ORDERED: SODIUM CHLORIDE 0.9% 1,000 ML IV ONE ×3 (00:30→02:00)
[2024-02-28 00:37] LABS: BASOPHILS 0.5 % (0-2); EOSINOPHILS 0.4 % (0-6); HEMATOCRIT 34.9 % (35.0-50.0); HEMOGLOBIN 11.3 g/dL (12.0-18.0); LYMPHOCYTES 32.7 % (24-44); MCH 26.9 (27-36); MCHC 32.5 g/dl (30-36); MCV 82.7 fl (81-99); MONOCYTES 7.2 % (0-12); NEUTROPHILS 59.2 % (39-80); PLATELET COUNT 257 K/uL (140-440); RBC 4.22 M/ul (4.3-5.7); RDW 17.2 (10.5-15.0)
[2024-02-28] MEDS ORDERED: ondansetron HCL 4 MG/2 ML VIAL IV ONE (00:45)
[2024-02-28 00:50] LABS: ALBUMIN 3.6 g/dL (3.4-5.0); ALBUMIN/GLOBULIN RATIO 0.92 (1.1-2.4); ANION GAP 18.8 (7-21); BILIRUBIN, TOTAL 0.2 ng/dL (0.2-1.0); BUN/CREATININE RATIO 17.36 (6.0-28.6); CREATININE, SERUM 1.44 mg/dL (0.55-1.02); MAGNESIUM 1.5 mg/dL (1.8-2.4); POTASSIUM 4.8 mmol/L (3.5-5.1); PROTEIN, TOTAL 7.5 g/dL (6.4-8.2)
[2024-02-28] MEDS ORDERED: MAGNESIUM SULFATE 2 GM/50 ML BAG IV ONE (01:15)
[2024-02-28 03:54] VITALS: BP 101/58
== END 2024-02-28 03:54 | disposition home or self-care (01) ==
LOC: ED 00:13
PROVIDERS: Family Medicine
DX: I95.2 Hypotension due to drugs (principal); T46.4X5A Adverse effect of angiotensin-converting-enzyme inhibitors, initial encounter; Z88.8 Allergy status to other drugs, medicaments and biological substances; Z88.1 Allergy status to other antibiotic agents; Z88.2 Allergy status to sulfonamides; Z79.899 Other long term (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; Z79.84 Long term (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 of oral hypoglycemic drugs
CPT/HCPCS: 36415; 80053; 83735; 84703; 85025; 96361; 96374; 96375; 99284-25; J2405; J3475; J7030

== ENCOUNTER 2024-04-30 19:40 | Emergency (ER) | payer MEDICARE, OTHER ==
[~2024-04-30] VITALS: Ht 157.5 cm; Wt 119.0 kg
[~2024-04-30 19:40] MED LIST changes: +LISINOPRIL-HCT1 EAC2 PO; +MELOXICAM7.5 MG PO
[2024-04-30] MEDS ORDERED: KETOROLAC TROMETHAMINE 30 MG/ML VIAL IV ONE (20:30)
[2024-04-30] MEDS ORDERED: FAMOTIDINE 20 MG/ 2 ML VIAL IV ONE (20:30)
[2024-04-30 20:43] LABS: BASOPHILS 0.5 % (0-2); HEMATOCRIT 37.3 % (35.0-50.0); HEMOGLOBIN 12.4 g/dL (12.0-18.0); MCH 30.6 (27-36); MCHC 33.3 g/dl (30-36); MCV 91.9 fl (81-99); NEUTROPHILS 52.5 % (39-80); PLATELET COUNT 241 K/uL (140-440); RBC 4.06 M/ul (4.3-5.7); RDW 22.4 (10.5-15.0)
[2024-04-30 21:07] LABS: ALBUMIN 3.6 g/dL (3.4-5.0); ALBUMIN/GLOBULIN RATIO 1.06 (1.1-2.4); ANION GAP 9.8 (7-21); BILIRUBIN, TOTAL 0.2 ng/dL (0.2-1.0); BUN/CREATININE RATIO 7.69 (6.0-28.6); CALCIUM 8.8 mg/dL (8.5-10.1); CREATININE, SERUM 0.65 mg/dL (0.55-1.02); MAGNESIUM 1.6 mg/dL (1.8-2.4); POTASSIUM 3.8 mmol/L (3.5-5.1); TSH, 3RD GENERATION 1.502 uIU/mL (0.358-3.740)
[2024-04-30 22:09] VITALS: BP 151/99
== END 2024-04-30 22:13 | disposition home or self-care (01) ==
LOC: ED 19:40
PROVIDERS: Internal Medicine
DX: O9A.23 Injury, poisoning and certain other consequences of external causes complicating the puerperium (principal); S63.91XA Sprain of unspecified part of right wrist and hand, initial encounter; X50.0XXA Overexertion from strenuous movement or load, initial encounter; I10 Essential (primary) hypertension; E11.9 Type 2 diabetes mellitus without complications; F31.9 Bipolar disorder, unspecified; Z88.5 Allergy status to narcotic agent; Z88.1 Allergy status to other antibiotic agents; Z88.2 Allergy status to sulfonamides; Z88.0 Allergy status to penicillin; Z88.8 Allergy status to other drugs, medicaments and biological substances
CPT/HCPCS: 36415; 80053; 83735; 84443; 85025; 85060; 86140; 96374; 96375; 99284-25; J1885

== ENCOUNTER 2024-05-23 20:48 | Emergency (ER) | payer MEDICARE, OTHER ==
[~2024-05-23] VITALS: Ht 157.5 cm; Wt 120.0 kg
[2024-05-23 22:45] VITALS: BP 146/80
== END 2024-05-23 22:45 | disposition left against medical advice (07) ==
LOC: ED 20:48
DX: R51.9 Headache, unspecified (principal); R11.10 Vomiting, unspecified; R68.83 Chills (without fever); H53.8 Other visual disturbances; R53.1 Weakness; Z53.21 Procedure and treatment not carried out due to patient leaving prior to being seen by health care provider

== ENCOUNTER 2024-05-25 14:41 | Emergency (ER) | payer MEDICARE, OTHER ==
[~2024-05-25] VITALS: Ht 157.5 cm; Wt 118.1 kg
[2024-05-25] MEDS ORDERED: HYDROmorphone HCL 1 MG/ML SYR IV ONE (16:45)
[2024-05-25] MEDS ORDERED: ondansetron HCL 4 MG/2 ML VIAL IV ONE (16:45)
[2024-05-25] MEDS ORDERED: SODIUM CHLORIDE 0.9% 1,000 ML IV ONE (16:45)
[2024-05-25 16:55] LABS: BASOPHILS 0.4 % (0-2); HEMATOCRIT 39.6 % (35.0-50.0); HEMOGLOBIN 13.1 g/dL (12.0-18.0); LYMPHOCYTES 34.6 % (24-44); MCH 31.3 (27-36); MCV 94.8 fl (81-99); PLATELET COUNT 257 K/uL (140-440); RBC 4.18 M/ul (4.3-5.7); RDW 18.2 (10.5-15.0)
[2024-05-25 17:07] LABS: ALBUMIN 3.7 g/dL (3.4-5.0); ANION GAP 10.5 (7-21); BILIRUBIN, TOTAL 0.2 ng/dL (0.2-1.0); BUN/CREATININE RATIO 19.76 (6.0-28.6); CALCIUM 9.5 mg/dL (8.5-10.1); CREATININE, SERUM 0.86 mg/dL (0.55-1.02); POTASSIUM 4.5 mmol/L (3.5-5.1); PROTEIN, TOTAL 7.4 g/dL (6.4-8.2)
[2024-05-25] MEDS ORDERED: HYDROCODON-ACE1 EA10 PO (18:02)
[2024-05-25] MEDS ORDERED: CLEOCIN HCL300 MG PO (18:02)
[2024-05-25 18:09] VITALS: BP 127/95
== END 2024-05-25 18:10 | disposition home or self-care (01) ==
LOC: ED 14:41
PROVIDERS: Emergency Medicine
DX: K04.7 Periapical abscess without sinus (principal); I10 Essential (primary) hypertension; E11.9 Type 2 diabetes mellitus without complications; M06.9 Rheumatoid arthritis, unspecified; Z88.5 Allergy status to narcotic agent; Z88.2 Allergy status to sulfonamides; Z88.0 Allergy status to penicillin; Z88.1 Allergy status to other antibiotic agents; Z88.8 Allergy status to other drugs, medicaments and biological substances; Z79.84 Long term (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 of oral hypoglycemic drugs; Z79.899 Other long term (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
CPT/HCPCS: 36415; 70450; 80053; 85025; 87070; 96374; 96375; 99284-25; J1170; J2405; J7030

== ENCOUNTER 2024-09-22 10:21 | Day surgery (SDC) | payer MEDICARE, OTHER ==
[2024-09-14 12:34] VITALS: BP 117/81
[~2024-09-22] VITALS: Ht 157.5 cm; Wt 125.0 kg
[~2024-09-22 10:21] MED LIST changes: +CEFAZOLIN SODIUM 2 GM/20 ML SYR IV SCH; +CEFAZOLIN SODIUM 3 GM/30 ML SYR IV SCH; +IBLOOD GLUCOSE TEST STRIP 1 EA TEST VI PRN; +LACTATED RINGER'S 1,000 ML IV SCH; +LIDOCAINE HCL 1% 5 ML SDV INJ ONE
[2024-09-22] MEDS ORDERED: propofoL 200 MG/20 ML VIAL ONE (10:59)
[2024-09-22 11:46] VITALS: BP 122/64
[2024-09-22] MEDS ORDERED: DEXTROSE 5% - LACTATED RINGERS 1,000 ML IV SCH (12:00)
[2024-09-22] MEDS ORDERED: ondansetron HCL 4 MG/2 ML VIAL ONE (12:28)
[2024-09-22] MEDS ORDERED: HEParin SOD (PORCINE) 500 UNIT/5 ML ML IV ONE (12:30)
[2024-09-22 13:16] VITALS: BP 133/84
--- NOTE | 2024-09-22 13:44 | OR ---
[facility] [place] [facility] [address] [place], [place] [address] Signed DATE OF OPERATION: 09/22/2024 SURGEON: Karey Coates MD PREOPERATIVE DIAGNOSES: 1. Fabry's disease with chronic nausea, vomiting, diarrhea. 2. Nessa-en-Y gastric bypass in 2019. 3. History of gastritis, esophagitis and a tiny hiatal hernia. 4. Iron deficiency anemia. 5. Blood associated with bowel movements. POSTOPERATIVE DIAGNOSES: 1. Tiny hiatal hernia. 2. Nessa-en-Y gastric bypass anatomy. 3. Poor bowel prep. 4. Long redundant colon. PROCEDURES: 1. Esophagogastroduodenoscopy with CLOtest and biopsies of the gastric pouch. 2. Colonoscopy without biopsies. ESTIMATED BLOOD LOSS: None. INDICATIONS: Jarvis is a 44-year-old female who I have known for quite some time. She was asked to see me for both upper and lower endoscopy by her hydrometer finisher. She was found to have iron-deficiency anemia recently and responded nicely to a couple of doses of IV iron infusion therapy. Her hemoglobin is now 11.7 with a mean cell volume of 99. I helped her years ago in 2009 at the age of 29 for upper endoscopy. That was her fourth upper endoscopy at that time. She had a tiny hiatal hernia with mild esophagitis and gastritis. She had gone to our [employer] [facility] in 2019 and had Nessa-en-Y gastric bypass surgery. She was over 400 pounds. She is now down to about 260 pounds. She looks and feels much better. She has never had a previous colonoscopy. She is seeing some blood associated with bowel movements. There seems to be no family history of colon cancer or polyps. In the office I had given her a pamphlet on upper endoscopy as well as lower endoscopy. She understands the nature of these two tests. There is risk including, but not limited to gas bloating, crampy abdominal pain, bleeding, perforation requiring surgery, and missed diagnosis. We also reviewed the written instructions for a bowel prep line by line. We let her start at 11 a.m. and proceed all the way through Electronically Signed By: KAREY COATES MD 09/22/24 1344 PATIENT NAME: JARVIS ENRIQUE OPERATIVE REPORT DATE OF : 78 REPORT #: [id number] PHYSICIAN: KAREY COATES MD PCP: BETSY MCGUIRE PAC REPORT IS CONFIDENTIAL AND NOT TO BE RELEASED WITHOUT AUTHORIZATION [facility] [address], [place] [address] Signed 7 p.m. That usually helps our gastric bypass patients. Given her significant obesity and her need for lorazepam and her long list of allergies as well as her other medical issues we asked for monitored anesthesia care propofol infusion. That proved to be a bender decision. She had expressed understanding and wished to proceed. DESCRIPTION OF PROCEDURE: Jarvis was taken into our endoscopy suite and placed in the supine semi-recumbent position. A bite block was utilized for the case. She was given monitored anesthesia care propofol infusion per our nurse coverstitch machine operator. The adult gastroscope was introduced and advanced under direct visualization of camera without difficulty. She indeed has just a tiny hiatal hernia. We came into an unremarkable gastric pouch. We could easily see the anastomosis. It is well healed without any ulcerations. We passed our scope down in the Nessa limb as far as we could permit with the camera. The Nessa limb was unremarkable. We looked at the end of the Nessa limb as well and it was fine. We took a single biopsy of the gastric pouch for pathologic review as well as CLOtest. Her Z-line is down around 35 cm. We did not see any disruption to the Z-line. There was no distal esophagitis. There was no Lyn's mucosa. The distal, middle and upper esophagus were unremarkable. After this the gas was suctioned out, the gastroscope removed. Jarvis tolerated the upper endoscopy quite well. Jarvis was rotated into the left lateral decubitus position. She was maintained on propofol infusion per our nurse coverstitch machine operator. A digital rectal exam was performed. This was unremarkable. No external hemorrhoids. Good sphincter tone. No masses. The adult colonoscope was introduced and advanced under direct visualization of camera. It took a while to get through the sigmoid colon with some irrigation and eventually made it right up to the next to the ileocecal valve. Unfortunate her bowel prep was poor throughout the entire colon. There were multiple areas of liquid stool. I could not quite suction out completely. There was significant areas in mucosa I simply could not see. In the future, she will need a full gallon of polyethylene glycol associated with Dulcolax tablets and/or magnesium citrate. Scope was then slowly withdrawn. We did not see any pathology throughout the entire colon or rectum. At that point, she was waking up and we did not retroflex the scope. Overall Jarvis tolerated the procedure quite well. RECOMMENDATIONS: I will see Jarvis back in my office in 7 to 14 days to review her results. She should consider repeating the colonoscopy with a full bowel prep and Dulcolax tablets or magnesium citrate. She will always need monitored anesthesia care in the future. Karey Coates MD Electronically Signed By: KAREY COATES MD 09/22/24 1344 PATIENT NAME: JARVIS ENRIQUE OPERATIVE REPORT DATE OF : 78 REPORT #: [id number] PHYSICIAN: KAREY COATES MD PCP: BETSY MCGUIRE REPORT IS CONFIDENTIAL AND NOT TO BE RELEASED WITHOUT AUTHORIZATION [address] [place], [place] [address] Signed ALB/MODL /[id number] cc: SELENA Cassidy MD Robert C Quackenbush, MD Copies: BETSY MCGUIRE ANDREW L MD QUACKENBUSH, ROBERT C MD ~ Electronically Signed By: KAREY COATES MD 09/22/24 1344 PATIENT NAME: JARVIS ENRIQUE OPERATIVE REPORT DATE OF : 78 REPORT #: [id number] PHYSICIAN: KAREY COATES MD PCP: MCGUIRE,BETSY PAC REPORT IS CONFIDENTIAL AND NOT TO BE RELEASED WITHOUT AUTHORIZATION
--- NOTE | 2024-09-22 14:55 | NUR ---
09/22/24 1455 Kenya Nino 1242 PT ARRIVED IN PACU NON RESPONSIVE TO NOXIOUS STIMULI WITH OPA IN PLACE. BLOOD SUGAR 166. 1247 PT REACTIVE. OPA REMOVED. 1300 SITTING UP IN BED SIPPING ON WATER. 1315 DC INSTRUCTIONS GIVEN. ALL QUESTIONS ANSWERED. 1330 LEFT VIA W/C.
--- NOTE | 2024-09-22 16:29 | NUR ---
LE 1325 WHILE DEACCESSING PT'S PORTACATH, PT REFUSED THE HEPARIN FLUSH AND ONLY LET RN USE 20ML OF NS.
== END 2024-09-22 13:30 | disposition home or self-care (01) ==
LOC: DS 10:21
PROVIDERS: ATTEND Colon & Rectal Surgery
PROC: 0DB68ZX Excision of Stomach, Via Natural or Artificial Opening Endoscopic, Diagnostic (ICD-10-PCS; principal; 2024-09-22 12:05)
PROC: 0DJD8ZZ Inspection of Lower Intestinal Tract, Via Natural or Artificial Opening Endoscopic (ICD-10-PCS; 2024-09-22 12:05)
DX: K29.50 Unspecified chronic gastritis without bleeding (principal); K44.9 Diaphragmatic hernia without obstruction or gangrene; E75.21 Fabry (-Anderson) disease; K63.89 Other specified diseases of intestine; D50.9 Iron deficiency anemia, unspecified; I10 Essential (primary) hypertension; F43.10 Post-traumatic stress disorder, unspecified; E11.65 Type 2 diabetes mellitus with hyperglycemia; F31.9 Bipolar disorder, unspecified; E66.01 Morbid (severe) obesity due to excess calories; G89.4 Chronic pain syndrome; Z68.42 Body mass index [BMI] 45.0-49.9, adult; Z79.899 Other long term (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; Z79.84 Long term (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 of oral hypoglycemic drugs; Z88.2 Allergy status to sulfonamides; Z88.8 Allergy status to other drugs, medicaments and biological substances; Z91.030 Bee allergy status; Z98.84 Bariatric surgery status
CPT/HCPCS: 00731; 36415; 87077; 88305; J0690; J2405; J2704; J7121

== ENCOUNTER 2024-10-31 14:28 | Emergency (ER) | payer OTHER, MEDICARE ==
[~2024-10-31] VITALS: Ht 157.5 cm; Wt 99.8 kg
[~2024-10-31 14:28] MED LIST changes: -CEFAZOLIN SODIUM 2 GM/20 ML SYR IV SCH; -CEFAZOLIN SODIUM 3 GM/30 ML SYR IV SCH; -IBLOOD GLUCOSE TEST STRIP 1 EA TEST VI PRN; -LACTATED RINGER'S 1,000 ML IV SCH; -LIDOCAINE HCL 1% 5 ML SDV INJ ONE
[2024-10-31] MEDS ORDERED: LORAZEPAM1 MG (14:51)
[2024-10-31] MEDS ORDERED: ZOLPIDEM TART12.5 MG (14:51)
[2024-10-31] MEDS ORDERED: ondansetron HCL 4 MG/2 ML VIAL IV ONE (15:30)
[2024-10-31] MEDS ORDERED: HYDROmorphone HCL 1 MG/ML SYR IV PRN (15:30)
[2024-10-31] MEDS ORDERED: DILAUDID2 MG PO (17:24)
[2024-10-31] MEDS ORDERED: METOCLOPRAMIDE HCL 10 MG/2 ML SDV IV ONE (17:30)
[2024-10-31 17:45] VITALS: BP 117/76
== END 2024-10-31 18:00 | disposition home or self-care (01) ==
LOC: ED 14:28
DX: S16.1XXA Strain of muscle, fascia and tendon at neck level, initial encounter (principal); W00.0XXA Fall on same level due to ice and snow, initial encounter; I10 Essential (primary) hypertension; E11.9 Type 2 diabetes mellitus without complications; Z88.2 Allergy status to sulfonamides; Z88.1 Allergy status to other antibiotic agents; Z88.0 Allergy status to penicillin; Z88.8 Allergy status to other drugs, medicaments and biological substances; Z91.048 Other nonmedicinal substance allergy status; Z91.030 Bee allergy status; Z79.899 Other long term (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; Z79.84 Long term (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 of oral hypoglycemic drugs
CPT/HCPCS: 70491; 99283-25; J1171; J2405; J2765

== ENCOUNTER 2024-11-13 10:48 | Emergency (ER) | payer MEDICARE, OTHER ==
[~2024-11-13] VITALS: Ht 157.5 cm; Wt 99.8 kg
[~2024-11-13 10:48] MED LIST changes: +DILAUDID2 MG PO; +LORAZEPAM1 MG; +ZOLPIDEM TART12.5 MG
[2024-11-13] MEDS ORDERED: ALBUTEROL/IPRATROPIUM 3 ML NEB INH ONE (11:00)
[2024-11-13 11:15] LABS: BASOPHILS 0.3 % (0-2); EOSINOPHILS 0.2 % (0-6); HEMATOCRIT 33.8 % (35.0-50.0); HEMOGLOBIN 12.1 g/dL (12.0-18.0); LYMPHOCYTES 19.4 % (24-44); MCH 34.4 (27-36); MCHC 35.7 g/dl (30-36); MCV 96.3 fl (81-99); MONOCYTES 15.3 % (0-12); NEUTROPHILS 64.8 % (39-80); PLATELET COUNT 310 K/uL (140-440); RBC 3.51 M/ul (4.3-5.7); RDW 12.9 (10.5-15.0)
[2024-11-13] MEDS ORDERED: SODIUM CHLORIDE 0.9% 1,000 ML IV ONE (11:30)
[2024-11-13 11:36] LABS: ALBUMIN 3.5 g/dL (3.4-5.0); ANION GAP 14.7 (7-21); BILIRUBIN, TOTAL 0.2 mg/dL (0.2-1.0); CALCIUM 9.1 mg/dL (8.5-10.1); POTASSIUM 3.7 mmol/L (3.5-5.1)
[2024-11-13 12:49] VITALS: BP 125/75
--- NOTE | 2024-11-14 21:33 | EKG ---
[facility] [address] [facility] [address] [place] [address] Signed Normal sinus rhythm Low voltage QRS Borderline ECG When compared with ECG of 14-SEP-2024 12:48, No significant change was found Confirmed by Patricia Levy DO ([id number]) on 11/14/2024 9:32:58 PM Electronically Signed By: PATRICIA LEVY DO 11/14/[id number] PATIENT NAME: ENRIQUEMARKO Electrocardiogram DATE OF : 78 PHYSICIAN: PATRICIA LEVY DO REPORT #: [id number] REPORT IS CONFIDENTIAL AND NOT TO BE RELEASED WITHOUT AUTHORIZATION
== END 2024-11-13 12:49 | disposition home or self-care (01) ==
LOC: ED 10:48
PROVIDERS: Emergency Medicine
DX: J06.9 Acute upper respiratory infection, unspecified (principal); I10 Essential (primary) hypertension; E11.9 Type 2 diabetes mellitus without complications; M06.9 Rheumatoid arthritis, unspecified; Z88.2 Allergy status to sulfonamides; Z88.1 Allergy status to other antibiotic agents; Z88.0 Allergy status to penicillin; Z88.5 Allergy status to narcotic agent; Z88.6 Allergy status to analgesic agent; Z88.8 Allergy status to other drugs, medicaments and biological substances; Z91.030 Bee allergy status; Z91.048 Other nonmedicinal substance allergy status; Z79.84 Long term (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 of oral hypoglycemic drugs; Z79.899 Other long term (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
CPT/HCPCS: 36415; 71045; 80053; 83880; 84484; 85025; 93005; 93010; 94640; 99285-25; J7030

== ENCOUNTER 2025-03-20 18:06 | Emergency (ER) | payer MEDICARE, OTHER ==
[~2025-03-20] VITALS: Ht 157.5 cm; Wt 125.9 kg
[~2025-03-20 18:06] MED LIST changes: +METFORMIN HCL1000 M1 PO
[2025-03-20] MEDS ORDERED: BUPROPION XL150 MG PO (18:29)
[2025-03-20] MEDS ORDERED: CARBAMAZEPINE200 MG PO (18:30)
[2025-03-20] MEDS ORDERED: DICYCLOMINE HCL20 MG PO (18:30)
[2025-03-20] MEDS ORDERED: VALACYCLOVIR500 MG PO (18:32)
[2025-03-20] MEDS ORDERED: PRAZOSIN HCL2 MG PO (18:32)
[2025-03-20] MEDS ORDERED: VITAMIN D21250 MCG PO (18:33)
[2025-03-20 18:34] LABS: BASOPHILS 0 % (0.1-1.2); EOSINOPHILS 0 % (0.7-5.8); LYMPHOCYTES 30.7 % (19.3-51.7); MCH 33.0 PG (25.6-32.2); MCHC 33.8 g/dL (32.2-35.5); MCV 97.8 fL (79.4-94.8); MONOCYTES 7.4 % (4.7-12.5); NEUTROPHILS 61.6 % (34.0-71.1); RBC 3.15 M/uL (3.93-5.22)
[2025-03-20 18:51] LABS: ALT (SGPT) 32.0 U/L (14-59); AST (SGOT) 25.0 U/L (15-37); GLOMERULAR FILTRATION RATE,EST 89.0 mL/min (>60); PROTEIN, TOTAL 6.7 g/dL (6.4-8.2); UREA NITROGEN 12.0 mg/dL (7-18)
[2025-03-20] MEDS ORDERED: FAMOTIDINE 20 MG/ 2 ML VIAL IV ONE (20:15)
[2025-03-20] MEDS ORDERED: LACTATED RINGER'S 1,000 ML IV ONE (20:15)
[2025-03-20] MEDS ORDERED: KETOROLAC TROMETHAMINE 30 MG/ML VIAL IV ONE (20:15)
[2025-03-20 20:45] LABS: BLOOD/HGB, URINE NEGATIVE (Negative); KETONE, URINE NEGATIVE (Negative); LEUK ESTERASE, URINE NEGATIVE (negative); NITRITE, URINE NEGATIVE (negative)
[2025-03-20 21:06] LABS: CORONAVIRUS COVID-19 AG NEGATIVE (NEGATIVE)
[2025-03-20] MEDS ORDERED: METOCLOPRAMIDE HCL 10 MG/2 ML SDV IV ONE (22:00)
[2025-03-20] MEDS ORDERED: REGLAN10 MG PO (22:35)
[2025-03-20 22:51] VITALS: BP 124/95
--- NOTE | 2025-03-21 21:54 | EKG ---
[facility] [address] [place] [address] Signed Normal sinus rhythm Normal ECG When compared with ECG of 13-NOV-2024 11:30, No significant change was found Confirmed by Calderon Block MD () on 03/21/2025 9:53:53 PM Electronically Signed By: CALDERON BLOCK MD 03/21/25 2154 PATIENT NAME: MARKO ENRIQUE Electrocardiogram DATE OF : 78 PHYSICIAN: CALDERON BLOCK MD REPORT #: [id number] REPORT IS CONFIDENTIAL AND NOT TO BE RELEASED WITHOUT AUTHORIZATION
== END 2025-03-20 22:53 | disposition home or self-care (01) ==
LOC: ED 18:06
PROVIDERS: Internal Medicine
DX: R51.9 Headache, unspecified (principal); R10.10 Upper abdominal pain, unspecified; R11.2 Nausea with vomiting, unspecified; I10 Essential (primary) hypertension; Z88.2 Allergy status to sulfonamides; Z88.0 Allergy status to penicillin; Z79.899 Other long term (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
CPT/HCPCS: 36415; 71045; 74177; 80053; 81003; 83690; 83735; 84484; 84703; 85025; 93005; 93010; 96374; 96375; 99285-25; J1885; J2405; J2765; J7121; Q9967

== ENCOUNTER 2025-03-29 20:57 | Emergency (ER) | payer MEDICARE, OTHER ==
[~2025-03-29] VITALS: Ht 157.5 cm; Wt 125.9 kg
[~2025-03-29 20:57] MED LIST changes: +BUPROPION XL150 MG PO; +CARBAMAZEPINE200 MG PO; +DICYCLOMINE HCL20 MG PO; +VITAMIN D21250 MCG PO
[2025-03-29] MEDS ORDERED: fentaNYL citrate 100 MCG/2 ML VIAL IV ONE (22:30)
[2025-03-29] MEDS ORDERED: SODIUM CHLORIDE 0.9% 1,000 ML IV ONE (22:30)
[2025-03-29 22:36] LABS: BASOPHILS 0 % (0.1-1.2); EOSINOPHILS 0 % (0.7-5.8); LYMPHOCYTES 30.6 % (19.3-51.7); MCH 33.3 PG (25.6-32.2); MCHC 34.8 g/dL (32.2-35.5); MCV 95.8 fL (79.4-94.8); MONOCYTES 7.7 % (4.7-12.5); NEUTROPHILS 61.5 % (34.0-71.1); RBC 3.33 M/uL (3.93-5.22)
[2025-03-29 22:43] LABS: BLOOD/HGB, URINE NEGATIVE (Negative); KETONE, URINE NEGATIVE (Negative); LEUK ESTERASE, URINE NEGATIVE (negative); NITRITE, URINE NEGATIVE (negative)
[2025-03-29 22:51] LABS: ALT (SGPT) 23.0 U/L (14-59); AST (SGOT) 12.0 U/L (15-37); GLOMERULAR FILTRATION RATE,EST 67.0 mL/min (>60); PROTEIN, TOTAL 6.9 g/dL (6.4-8.2); UREA NITROGEN 11.0 mg/dL (7-18)
[2025-03-29] MEDS ORDERED: PROCHLORPERAZINE EDISYLATE 10 MG/2 ML VIAL IV ONE (23:30)
[2025-03-30] MEDS ORDERED: TRAMADOL HCL50 MG PO (00:07)
[2025-03-30] MEDS ORDERED: ONDANSETRON ODT8 MG PO (00:07)
[2025-03-30] MEDS ORDERED: LOMOTIL TABLET1 EACH PO (00:07)
[2025-03-30] MEDS ORDERED: PROMETHEGAN25 MG PR (00:07)
[2025-03-30] MEDS ORDERED: TRAMADOL HCL 50 MG HOME.PACK PO ONE (00:15)
[2025-03-30] MEDS ORDERED: PROMETHAZINE HCL 25 MG HOME.PACK PO ONE (00:15)
[2025-03-30 00:26] VITALS: BP 103/62
== END 2025-03-30 00:30 | disposition home or self-care (01) ==
LOC: ED 20:57
PROVIDERS: Family Medicine
DX: K52.9 Noninfective gastroenteritis and colitis, unspecified (principal); I10 Essential (primary) hypertension; E11.9 Type 2 diabetes mellitus without complications; Z88.8 Allergy status to other drugs, medicaments and biological substances; Z88.0 Allergy status to penicillin; Z88.2 Allergy status to sulfonamides
CPT/HCPCS: 36415; 74177; 80053; 81003; 83690; 84703; 85025; 96361; 96375; 99284-25; A9270; J0780; J1200; J1790; J3010; J7030; Q9967

== ENCOUNTER 2025-06-13 09:35 | Emergency (ER) | payer MEDICARE, OTHER ==
[~2025-06-13] VITALS: Ht 157.5 cm; Wt 119.2 kg
[~2025-06-13 09:35] MED LIST changes: +LOMOTIL TABLET1 EACH PO; +PROMETHEGAN25 MG PR
[2025-06-13] MEDS ORDERED: MORPHINE SULFATE 4 MG/ML VIAL IV ONE (10:15)
[2025-06-13 10:30] LABS: BASOPHILS 0.1 % (0.1-1.2); EOSINOPHILS 0 % (0.7-5.8); LYMPHOCYTES 32.4 % (19.3-51.7); MCH 31.5 PG (25.6-32.2); MCHC 33.7 g/dL (32.2-35.5); MCV 93.3 fL (79.4-94.8); MONOCYTES 7.1 % (4.7-12.5); NEUTROPHILS 60.3 % (34.0-71.1); RBC 3.56 M/uL (3.93-5.22)
[2025-06-13 10:35] LABS: BLOOD/HGB, URINE NEGATIVE (Negative); KETONE, URINE TRACE (Negative); LEUK ESTERASE, URINE NEGATIVE (negative); NITRITE, URINE NEGATIVE (negative)
[2025-06-13 10:46] LABS: CORONAVIRUS COVID-19 AG NEGATIVE (NEGATIVE)
[2025-06-13 10:48] LABS: ALT (SGPT) 16.0 U/L (14-59); AST (SGOT) 14.0 U/L (15-37); GLOMERULAR FILTRATION RATE,EST 91.0 mL/min (>60); PROTEIN, TOTAL 6.7 g/dL (6.4-8.2); UREA NITROGEN 7.0 mg/dL (7-18)
[2025-06-13 11:01] LABS: BACTERIA, URINE 2+ /hpf (negative); CASTS, URINE NONE SEEN \\lpf; CRYSTALS, URINE NONE SEEN (0-1+); EPITHELIAL CELLS, URINE SQUAMOUS 4+ /lpf (0-1+); REFLEX CULTURE, URINE No (No)
[2025-06-13] MEDS ORDERED: METOCLOPRAMIDE HCL 10 MG/2 ML SDV IV ONE (11:45)
[2025-06-13] MEDS ORDERED: HYDROCODON-ACE1 EA10 PO (12:05)
[2025-06-13 12:12] VITALS: BP 143/82
== END 2025-06-13 12:11 | disposition home or self-care (01) ==
LOC: ED 09:35
PROVIDERS: Emergency Medicine
DX: R10.31 Right lower quadrant pain (principal); I10 Essential (primary) hypertension; E11.9 Type 2 diabetes mellitus without complications; Z88.2 Allergy status to sulfonamides; Z91.030 Bee allergy status; Z88.0 Allergy status to penicillin; Z88.8 Allergy status to other drugs, medicaments and biological substances; Z91.09 Other allergy status, other than to drugs and biological substances; Z88.5 Allergy status to narcotic agent; Z79.899 Other long term (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; Z79.84 Long term (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 of oral hypoglycemic drugs
CPT/HCPCS: 36415; 74177; 80053; 81001; 83690; 85025; 96374; 96375; 99284-25; J2270; J2405; J2765

== ENCOUNTER 2025-07-30 05:42 | Emergency (ER) | payer MEDICARE, OTHER ==
[~2025-07-30] VITALS: Ht 157.5 cm; Wt 119.2 kg
[2025-07-30 06:17] LABS: BASOPHILS 0 % (0.1-1.2); EOSINOPHILS 0 % (0.7-5.8); LYMPHOCYTES 22.8 % (19.3-51.7); MCH 30.1 PG (25.6-32.2); MCHC 32.8 g/dL (32.2-35.5); MCV 91.9 fL (79.4-94.8); MONOCYTES 5.9 % (4.7-12.5); NEUTROPHILS 71.0 % (34.0-71.1); RBC 4.08 M/uL (3.93-5.22)
[2025-07-30 06:19] LABS: BLOOD/HGB, URINE NEGATIVE (Negative); KETONE, URINE NEGATIVE (Negative); LEUK ESTERASE, URINE NEGATIVE (negative); NITRITE, URINE NEGATIVE (negative)
[2025-07-30] MEDS ORDERED: LACTATED RINGER'S 1,000 ML IV ONE (06:30)
[2025-07-30] MEDS ORDERED: KETOROLAC TROMETHAMINE 30 MG/ML VIAL IV ONE (06:30)
[2025-07-30 06:32] LABS: ALT (SGPT) 18.0 U/L (14-59); AST (SGOT) 17.0 U/L (15-37); GLOMERULAR FILTRATION RATE,EST 81.0 mL/min (>60); PROTEIN, TOTAL 7.1 g/dL (6.4-8.2); UREA NITROGEN 13.0 mg/dL (7-18)
[2025-07-30 09:34] VITALS: BP 132/91
== END 2025-07-30 09:36 | disposition home or self-care (01) ==
LOC: ED 05:42
PROVIDERS: Internal Medicine
DX: R10.A1 Flank pain, right side (principal); Z79.84 Long term (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 of oral hypoglycemic drugs; Z79.51 Long term (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 of inhaled steroids; Z79.899 Other long term (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; Z91.048 Other nonmedicinal substance allergy status; Z88.1 Allergy status to other antibiotic agents; Z91.030 Bee allergy status; Z88.0 Allergy status to penicillin; Z88.5 Allergy status to narcotic agent; Z88.2 Allergy status to sulfonamides; Z88.8 Allergy status to other drugs, medicaments and biological substances
CPT/HCPCS: 36415; 74176; 80053; 81003; 83690; 83735; 85025; 96374; 96375; 99284-25; J1790; J1885; J2405; J7121